=== PATIENT | female | born 1950 | race Caucasian/White ===

== ENCOUNTER → 2017-11-14 09:54 | Outpatient (CLI) | payer MEDICARE, BC, SELFPAY ==
--- NOTE | 2017-11-14 10:02 | RAD_ITS ---
STUDY: X-RAY - ABDOMEN/PELVIS REASON FOR EXAM: Female, 67 years old. Follow-up renal stones. TECHNIQUE: Single AP view of the abdomen / pelvis. COMPARISON: CT scan of 03/16/2014, previous radiographs 09/09/2015. 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 There is an unremarkable bowel gas pattern. There is no demonstrated free abdominal air. The visualized liver, spleen and kidneys are grossly normal in size and morphology. Normal soft tissue structures. Normal visualized osseous structures. RAD/Abdomen Single View IMPRESSION: Grossly stable appearance extremely numerous tiny stones throughout all segments of both kidneys. Electronically Signed: Chip Ulrich MD at 16:52 EDT , Service support ,
== END ==
PROVIDERS: Family Provider Internal Medicine; PCP Internal Medicine; Visit Provider Urology
DX: N20.0 Calculus of kidney (principal)
CPT/HCPCS: 74018

== ENCOUNTER → 2018-03-21 11:39 | Outpatient (CLI) | payer MEDICARE, BC, SELFPAY ==
--- NOTE | 2018-03-21 11:42 | BI_ITS ---
MAMMOGRAPHY - BILATERAL SCREENING REASON FOR EXAM: Female, 67 years old. Routine annual screening examination. PERTINENT HISTORY: Non-contributory. TECHNIQUE: Digital bilateral breast jairo (3D mammographic acquisition) in the CC and MLO projections. 2-D mediolateral oblique (MLO) and craniocaudad (CC) views of both breasts were obtained. CAD: Full Field Digital Mammography with Computer Added Detection was performed. COMPARISON: Comparison is made with prior study dated March 10, 2017 and January 08, 2016. FINDINGS: Breast Composition: There are scattered areas of fibroglandular density. There are no dominant masses or suspicious calcifications. No other significant abnormalities are identified. There has been no significant change since the prior study. BI/SCREENING MAMM (CAD), BILAT IMPRESSION: Stable bilateral screening mammogram. Yearly follow-up mammogram recommended. (A) ASSESSMENT CATEGORY: BIRADS Category 1: Negative. A letter regarding these results will be sent to the patient by the facility within 30 days. Approximately 10% of breast cancers are not detected by mammography. A normal mammogram should not delay biopsy of a clinically suspicious abnormality. [id number] Electronically Signed: Robert Dominguez MD at 13:21 EDT Tel [phone], Service support ,
== END ==
PROVIDERS: Family Provider Internal Medicine; PCP Internal Medicine; Visit Provider Obstetrics & Gynecology
DX: Z12.31 Encounter for screening mammogram for malignant neoplasm of breast (principal)
CPT/HCPCS: 77063; 77067

== ENCOUNTER → 2018-04-13 08:17 | Outpatient (CLI) | payer MEDICARE, BC, SELFPAY ==
--- NOTE | 2018-04-13 08:21 | BD_ITS ---
STUDY: DUAL ENERGY X-RAY ABSORPTIOMETRY / DXA REASON FOR EXAM: Female, 67 years old. The patient is postmenopausal. Loss of height. TECHNIQUE: Bone Mineral Density (BMD) measurements of lumbar spine and bilateral hips were obtained. COMPARISON: Comparison is made with prior study dated February 10, 2016. FINDINGS: Lumbar Spine (L1-L4): g/cm2 (0.873) / T-score (-2.6) / Z-score (-0.9) Findings are suggestive of osteoporosis with a high fracture risk. Left Femur Total: g/cm2 (0.982) / T-score (-0.2) / Z-score (1.1) Left Femoral Neck: g/cm2 (0.881) / T-score (-1.1) / Z-score (0.4) Right Femur Total: g/cm2 (0.941) / T-score (-0.5) / Z-score (0.8) Right Femoral Neck: g/cm2 (0.943) / T-score (-0.7) / Z-score (0.9) The T-Scores on the most recent prior examination were: Lumbar Spine (L1-L4): There has been improvement of bone density since the previous examination. Left Femur Total: which represents a worsening of 2.2%. Right Femur Total: which represents an improvement of 1.6%. BD/Dexa Bone Density Study IMPRESSION: The patient is considered osteoporotic as outlined below according to World [place] Organization (WHO) criteria with a high fracture risk. There has been improvement of bone density since the previous examination. Reference Information: The T-score is the number of standard deviations above or below the standard which is normal for young adults at their peak bone mineral density. The World Health Organization (WHO) interprets the T-scores as follows: Above -1 Normal bone density Between -1 and -2.5 Osteopenia Equal to / or below -2.5 Osteoporosis As a practical clinical guideline, osteopenia may be graded as follows: Mild -1 through -1.5 Moderate -1.6 through -2.0 Severe -2.1 through -2.4 The Z-score is the number of standard deviations above or below age-matched controls. A Z-score of less than -1.5 would be considered abnormal. References: 1. NIH Osteoporosis and Related Bone Diseases http://www.osteo.org 2. International Society for Clinical Densitometry http://www.iscd.org 3. National Osteoporosis Foundation http://www.nof.org Electronically Signed: Robert Dominguez MD at 8:41 EDT Tel [phone], Service support ,
== END ==
PROVIDERS: Family Provider Internal Medicine; PCP Internal Medicine; Visit Provider Obstetrics & Gynecology
DX: M81.0 Age-related osteoporosis without current pathological fracture (principal)
CPT/HCPCS: 77080

== ENCOUNTER → 2019-01-11 | Outpatient (CLI) | payer MEDICARE, BC, SELFPAY ==
--- NOTE | 2019-01-11 | FLU_PTH ---
PATIENT: ATIYA RAM LOC: [facility] U#:[id number] AGE/SX: 68/F ROOM: RE01/11/[address]: Dr. Franco Pena MD : 1950 BED: DIS: 01/11/2019 SPEC #: [id number] RECD: 01/11/19 14:45 STATUS: MELISSA REQ #: [id number] ALLAN: 01/11/19 00:[address]: Franco Pena DEPT: CYTOLOGY RECD BY: Kelly Tapia ENTERED: 01/12/19 11:25 SP TYPE: Fluid OTHR DR: Dr. Kaley Alexander MD Tissues: Urine Procedures: Special Stain Group II Surgery Specimen Level IV Cytospin Fluid HEADER OPERATION: Not noted PRE-OP DIAGNOSIS: Hematuria TISSUE SUBMITTED: Urine for cytology DIAGNOSIS CYTOLOGY Urine for cytology (cytospin): Negative for malignant cells. Acute inflammation. See comment. AM:gordo 01/15/19 COMMENT Stone debris is present in the specimen. Clinical correlation is suggested. CYTOLOGY STUDY Slides are reviewed. CYTOLOGY GROSS Received is 70 ml of yellow hazy fluid labeled with the patient's name and and designated per the requisition as urine. Submitted for cytology preparation. /CC:ericka 01/12/19 TC:2 [facility]: [id number]
[2019-01-11 17:47] LABS: Cytology, Body Fluid / CSF SEE PATHOLOGY REPORT
== END | disposition home or self-care (01) ==
LOC: LABSPEC 17:31
PROVIDERS: Family Provider Internal Medicine; PCP Internal Medicine; Referring Provider Urology; Visit Provider Urology
DX: R31.9 Hematuria, unspecified (principal)
CPT/HCPCS: 88108; 88305; 88313

== ENCOUNTER → 2023-10-06 | Outpatient (CLI) | payer MEDICARE, BC, SELFPAY ==
--- NOTE | 2023-10-06 09:29 | RAD_ITS ---
STUDY: X-RAY - ESOPHAGUS (BARIUM SWALLOW) WITH FLUOROSCOPY REASON FOR EXAM: Female, 72 years old. DYSPHAGIA TECHNIQUE: 18 view(s) of the esophagus were obtained following swallowing of barium. FLUOROSCOPY TIME (if supplied): (27 seconds) minutes/seconds. 4.52 mGy COMPARISON: None. FINDINGS: There is no demonstrated esophageal foreign body. There is no demonstrated stricture or mucosal abnormality. There is a small hiatal hernia. Weblike stenosis is seen at the gastroesophageal junction. The patient ingested a 12 mm tablet of barium without any difficulty. There is atherosclerotic tortuosity of the aortic arch and descending thoracic aorta. Normal visualized pulmonary parenchyma. Normal visualized osseous structures of the thorax. RAD/Esophagus Dual Contrast IMPRESSION: Small sliding hiatal hernia with weblike stenosis at the gastroesophageal junction. The patient ingested a 12 mm tablet of barium without any difficulty. Electronically Signed: Robert Dominguez MD at 15:13 EDT ,
== END | disposition home or self-care (01) ==
LOC: RAD 09:28
PROVIDERS: PCP Internal Medicine; Referring Provider Internal Medicine Gastroenterology; Visit Provider Internal Medicine Gastroenterology
DX: R13.10 Dysphagia, unspecified (principal)
CPT/HCPCS: 74221

== ENCOUNTER 2024-03-23 05:53 | Day surgery (SDC) | payer MEDICARE, BC, SELFPAY ==
--- NOTE | 2024-03-23 | IMM_PTH ---
PATIENT: ATIYA RAM LOC: [facility] U#:[id number] AGE/SX: 73/F ROOM: RE03/23/[address]: Dr. Cole Schwartz DO : 1950 BED: DIS: 03/23/2024 SPEC #: [id number] RECD: 03/26/24 10:43 STATUS: MELISSA REQ #: [id number] ALLAN: 03/23/24 00:[address]: Cole Schwartz DEPT: IMMUNOHISTOCHEMISTRY RECD BY: Chris Smith ENTERED: 03/26/24 10:44 SP TYPE: IMMUNO OTHR DR: Dr. Emma Bustamante MD Tissues: Esophagus, NOS Procedures: P53 (initial) KI-67 (add) PHYSICIAN & INSTITUTION [place] [phone] SPECIMEN INFORMATION: Tissue Source: Distal esophagus Clinical Info: Dysphagia Specimen Number: [id number] CPT code: 11053,43423 METHODOLOGY: Deparaffinized sections of prefer/formalin-fixed tissue or PAP/DQ stained slides are incubated with monoclonal/polyclonal antibodies/oligonucleotide probes. Localization is made via biotin free immunoperoxidase method. Appropriate controls are performed and reacted as expected. Results on target cell population are indicated in the following table: RESULTS: ANTIBODY / CLONE RESULT P53 (DO-7) positive, wild type Ki-67 (30-9) positive, low These tests were developed and their performance characteristics determined by [facility]. They may not have been cleared or approved by the U.S. Food and Drug Administration. The FDA has determined that such clearance or approval is not necessary. The above immunohistochemical/dualISH markers are ordered and reviewed by the Pathologist. INTERPRETATION: Distal esophagus, biopsy: No evidence of dysplasia. MARGARET/ 03/27/2024
[2024-03-23 06:22] VITALS: BP 115/73; PULSE 62; RESP 16; TEMP 36.8; O2SAT 99; BMI 24.5
[2024-03-23] MEDS: Lactated Ringers 1,000 ML 15 ML IV (06:25)
--- NOTE | 2024-03-23 06:59 | PCM.HP.BLA ---
History and Physical Date of Admission: 03/23/24 ATIYA RAM, is a 73 F who presents to the office today for establishment with [facility]. She has had dysphagia with food getting stuck in her esophagus for years now. It has been worsening lately with episodes happening 3-4 times per week. She will have to drink a lot of water to get the food down. She denies every having to regurgitate her food. She has noticed breads and meat can cause her trouble. She has reflux symptoms and a nightly cough. She has taken PPIs in the past but was told not to by her PCP due to her CKD. The PPI was helpful for her cough. She does alos have osteoporosis. She was seeing Dr. Self for this and he recommended EGD after the barium swallow. She ultimately decided to transition her care to [facility]. Barium Swallow; 10.06.23 There is no demonstrated esophageal foreign body. There is no demonstrated stricture or mucosal abnormality. There is a small hiatal hernia. Weblike stenosis is seen at the gastroesophageal junction. The patient ingested a 12 mm tablet of barium without any difficulty. There is atherosclerotic tortuosity of the aortic arch and descending thoracic aorta. Normal visualized pulmonary parenchyma. Normal visualized osseous structures of the thorax. ROS Const Constitutional: Positive for fatigue and headache(s); No fever(s) or weight change ENT ENT: Positive for headache(s) and difficulty swallowing Gastro GI: Positive for bloating, constipation, diarrhea, heartburn, difficulty swallowing, excessive flatus and vomiting; No abdominal pain, belching, change in bowel habits, change in stool character, coffee ground emesis, cramping, feeling full early, incontinent of stools, Vomiting blood/hematemesis, Blood in stool, loose stools, Black,tarry stools, nausea/dyspepsia, pain with swallowing or other Musc Musculoskeletal: Positive for joint pain, muscle cramps, muscle weakness, Arthritis, restless legs and leg pain at night Skin Skin: No yellowing of the eye or itchy eyes Neuro Neurology: Positive for headache(s) and restless legs Psych Psychiatric: No anxiety and Positive for depression Endo Endocrine: Positive for fatigue; No weight change Aller/Imm Allergy/Immunologic: No itchy eyes Ivan/Lymp Hematologic/Lymphatic: No easy bleeding or easy bruising Exam Const General: cooperative and comfortable Nutritional Appearance: average body habitus and well nourished [facility] Head: normal to inspection Ears: hearing grossly normal bilaterally Nose: external nose normal Face and sinus: normal facial exam Eyes General: appearance normal, both eyes and all related structures Neck Neck: normal visual inspection Chest Chest palpation & inspection: normal inspection of the chest Resp Effort & Inspection: normal respiratory effort Cardio Palpation: normal PMI GI Inspection: normal to inspection Palpation: no hepatosplenomegaly Skin General: no rashes or lesions noted Neuro General: patient alert Extrem General: normal to inspection Psych Affect: normal affect Assessment and Plan Assessment and Plan (1) Dysphagia: Status: Acute Plan: Patient is here today for establishment with [facility]. She has had dysphagia for years now but recently became worse. Differential diagnosis includes stricture, GERD or EOE. -Will schedule her for EGD; let her know that she made dilation during the scope. She is agreeable to this plan -Discussed PPI therapy. She is nervous being on PPI as she has CKD and osteoporosis. Last creatinine was .90 wnl. Recommended for now that she take famotidine at night for her cough. Pending her EGD results we can consider changing or adding new medications. -She will f/u in 3 months I have examined the patient and the H&P has been reviewed. There are no clinical changes since date of exam.
--- NOTE | 2024-03-23 07:00 | EGD_PTH ---
PATIENT: ATIYA RAM LOC: [facility] U#:[id number] AGE/SX: 73/F ROOM: RE03/23/[address]: Dr. Cole Schwartz DO : 1950 BED: DIS: 03/23/2024 SPEC #: [id number] RECD: 03/23/24 10:41 STATUS: MELISSA REQ #: [id number] ALLAN: 03/23/24 07:[address]: Cole Schwartz DEPT: SURGICAL PATHOLOGY RECD BY: Kelly Tapia ENTERED: 03/23/24 12:39 SP TYPE: EGD BIOPSY LENCHO DR: Dr. Emma Bustamante MD Tissues: Esophagus, NOS Procedures: Special Stain Group I Surgery Specimen Level IV Alcian Blue/PAS (control) HEADER OPERATION: Biopsy, dilatation PRE-OP DIAGNOSIS: Dysphagia TISSUE SUBMITTED: Distal esophagus biopsy MICROSCOPIC DIAGNOSIS Distal esophagus, biopsy: Gastroesophageal junctional biopsy with mild chronic inflammation. 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 Focal changes of reflux. No evidence of dysplasia. See comment. MARGARETAmrik 03/26/2024 COMMENT Alcian blue/PAS stain with matched control is used in the evaluation of the specimen. Immunohistochemistry ([id number]) for P53 and Ki-67 will be performed and results will be reported separately. MICROSCOPIC DESCRIPTION Slides are reviewed. GROSS DESCRIPTION Received in fixative is one container labeled with the patient's name and designated Distal esophagus biopsy. The specimen consists of multiple irregular fragments of connor soft tissue that in aggregate measure 2.0 x 0.5 x 0.1 cm. The specimen is totally submitted in one cassette. 03/23/2024 TC:3 CPT:67529,59345
[2024-03-23 07:28] VITALS: BP 115/73; PULSE 62; RESP 16; TEMP 36.8; O2SAT 99
--- NOTE | 2024-03-23 07:28 | PCM.PRE.AN2 ---
ASA Classification* ASA Classification ASA Classification: 2 Assessment & Plan Anesthesia* Anesthesia Assessment Anesthesia Assessment: Discussed sedation and/or anesthesia options, risks, benefits, and alternatives with patient/parents/legal guardian/POA. Questions invited. The patient/parents/legal guardian/POA seems to understand and agrees to proceed with anesthesia plan. Reviewed the physical assessment, medical history, allergy history and patient home medications list prior to surgery/procedure/anesthetic and documented any changes. Performed airway and anesthesia risk assessments. Anesthesia Type Anesthesia Type: MAC (see written pre anesthesia record for full assessment) Anesthesia Focused Assessment* Temperature: 98.2 F Pulse Rate: 62 Blood Pressure: 115/73 Respiratory Rate: 16 Pulse Ox: 99 Airway Assessment Mouth opens: >3 cm Mallampati Score: II Focused Labs Anesthesia Preop lab: CBC CHEMISTRY Potassium 3.7 mmol/L (3.5-5.1) 10/30/14 08:06 Sodium 142 mmol/L (136-145) 10/30/14 08:06 BUN 23 mg/dL (7-18) H 10/30/14 08:06 Creatinine 1.1 mg/dL (0.6-1.0) H 10/30/14 08:06 Glucose 79 mg/dL (70-110) 10/30/14 08:06 TSH 2.10 uIU/mL (0.358-3.74) 10/30/14 08:06 COAG Pre-Assessment Diagnosis/Proposed Procedure Planned Operative Procedure(s): EGD Anesthesia History 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 When Was Last Pacemaker Check QUESTION #4 FULL TEXT: You/Your Family Experience fever (hyperthermia) with Anesthesia Last Oral Intake Last Oral intake: Last Oral Intake NPO since 04:30 03/23/24 06:22 Meds taken in AM with sips of Yes 03/23/24 06:22 water? 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 Female Yes 03/21/24 12:11 HX of Motion Sickness Yes 03/21/24 12:11 HX of N/V After Surgery Yes 03/21/24 12:11 Non-Smoker Yes 03/21/24 12:11 Duration of Surgery greater No 03/21/24 12:11 than 60 minutes Number of Risk Factors 4 03/21/24 12:11 PONV Score Severe Risk 03/21/24 12:11 Height & Weight Height & Weight: Anesthesia: Height & Weight Height 5 ft 3 in 03/23/24 06:22 Weight: 63 kg 03/23/24 06:22 Body Mass Index (BMI) 24.5 03/23/24 06:22 Respiratory Assessment Respiratory Assessment - maintenance team leader: Respiratory Tract Infection Hx - maintenance team leader Hx Respiratory Tract Infection No 03/21/24 12:11 STOP Sleep Apnea STOP Sleep Apnea - maintenance team leader: STOP Sleep Apnea - maintenance team leader Hx Hypertension No 03/21/24 12:11 Hx Sleep Apnea No 03/21/24 12:11 CPAP BIPAP Do you snore loudly (louder No 03/21/24 12:11 than talking or can be heard Do you often feel tired/ No 03/21/24 12:11 fatigued/ sleepy during daytime? Has anyone observed you stop No 03/21/24 12:11 breathing during sleep? STOP Results Negative 03/21/24 12:11 QUESTION #5 FULL TEXT : Do you snore loudly (louder than talking or can be heard through closed doors)? 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 Specify any problems Hx of Preganancy in last 3 N/A 03/21/24 12:11 Months Nurse Filling Out Transfusion NBUCHER 03/21/24 12:11 & Questions: Date: 03/21/24 03/21/24 12:11 Time: 12:15 03/21/24 12:11 Patient unable to answer at this time (ie. confused, unrespo /Reproduction History /Reproductive History - maintenance team leader: /Reproductive Hx- maintenance team leader Hx Now No 03/21/24 12:11 Gestational Age (in weeks): EDC: Hx Hx Para Hx Section SAB No 03/21/24 12:11 Active Medications Active Medications: Current Medications Generic Name Dose Route Start Last Admin Trade Name Freq PRN Reason Stop Dose Admin Lactated Ringer's 1,000 mls @ 15 mls/hr 03/23/24 06:15 03/23/24 06:25 IV 15 mls/hr .Q48H MARY Administration PFSH Medical History PONV (postoperative nausea and vomiting) Wears glasses Depression Thyroid disease Arthritis Chronic kidney disease (CKD) History of renal disease Restless legs Migraine headache Syncope History of IBS Heartburn Gastric reflux Non-smoker Chronic cough History of stress test (~2012) History of irregular heartbeat Home Medications ?Medication ?Instructions ?Recorded ?Last Taken ?Type acebutolol 200 mg capsule 200 mg PO BID 02/27/24 03/23/24 History albuterol sulfate 90 mcg/actuation 2 puff inhalation Q6H PRN 02/27/24 Unknown History aerosol inhaler shortness of breath or wheezing azelastine 137 mcg (0.1 %) nasal 2 spray intranasal BID PRN allergy 02/27/24 Unknown History spray symptoms coenzyme Q10 10 mg capsule 10 mg PO BID 02/27/24 Unknown History levothyroxine 50 mcg capsule 50 mcg PO DAILY 02/27/24 03/23/24 History polyethylene glycol 3350 17 4 g PO DAILY 02/27/24 Unknown History gram/dose oral powder (Miralax) rosuvastatin 10 mg tablet 10 mg PO DAILY 02/27/24 Unknown History sumatriptan 20 mg/actuation nasal 20 mg intranasal Q2H PRN migraine 02/27/24 03/23/24 History spray headache vitamin B complex 1 cap PO DAILY 02/27/24 Unknown History antiarthritic combination no.2 900 900 mg PO DAILY 03/21/24 Unknown History mg tablet (glucosamine-chondroitin) magnesium glycinate 100 mg (as 100 mg PO DAILY 03/21/24 Unknown History glycinate) tablet hxueojesizqv-Ro-ufzq-minerals 18 1 tab PO DAILY 03/21/24 Unknown History mg-0.4 mg tablet niacin 500 mg tablet 500 mg PO DAILY 03/21/24 Unknown History omega 3 350 mg-dha 235 mg-epa 90 1 cap PO DAILY 03/21/24 Unknown History mg-fish oil 597 mg capsule,delay rel ([place]-3) sunflower lecithin 1,200 mg PO BID 03/21/24 Unknown History Allergy/AdvReac Type Severity Reaction Status Date / Time ibandronate sodium Allergy Severe N/V/D Verified 03/23/24 06:21 Onkwopo-CQT-ClY Reductase Allergy Mild myalgia Verified 03/23/24 06:21 Inhibitor alendronate sodium Allergy Unknown Other Verified 03/23/24 06:21 Environmental Allergies: Allergy Unknown Other Verified 03/23/24 06:21 Uncoded (seasonal) gatifloxacin AdvReac Unknown Rash Verified 03/23/24 06:21 Surgical History History of cystoscopy (~1979) History of ankle surgery History of sinus surgery (~1999) History of cataract extraction with lens replacement Social History Smoking Status: Never smoker Review of Systems (Anesthesia) ROS Narrative System reviewed and no additional complaints, except as documented.
[2024-03-23 07:30] VITALS: BP 115/73; BP 120/70; PULSE 82; RESP 16; TEMP 36.7; O2SAT 99
--- NOTE | 2024-03-23 07:33 | OP.CCLET_ITS ---
03/23/2024 Emma Bustamante [address] [place] [address] Re : Upper GI endoscopy procedure for Merlyn Evangelista Dear Dr. Bustamante This procedure was performed on Saturday, March 23, 2024. My impressions and recommendations are as follows: Impressions : - Non-severe reflux esophagitis with no bleeding. Biopsied. - Ectopic gastric mucosa in the upper third of the esophagus. - Medium-sized hiatal hernia. - Multiple gastric polyps. - No gross lesions in the first portion of the duodenum. Recommendations : - Discharge patient to home. - Full liquid diet today. - Use Prilosec (omeprazole) 20 mg PO BID for 12 weeks. - Continue present medications. My findings are described in the full procedure note, which is enclosed. If I can be of further assistance, please feel free to contact me at . Sincerely, Cole Friend, 03/23/2024 7:32:32 AM This report has been signed electronically.
--- NOTE | 2024-03-23 07:33 | OP.EGD_ITS ---
Patient Name: Merlyn Evangelista Procedure Date: 03/23/2024 7:03 AM Date of : 1950 Age: 73 Procedure: Upper GI endoscopy Indications: Dysphagia Providers: Cole Schwartz DO Referring MD: Emma Bustamante Medicines: Monitored Anesthesia Care Patient Profile: This is a 73 year old female. Refer to note in patient chart for documentation of history and physical. Patient has symptoms of dysphagia with solids. Complications: No immediate complications. Procedure: Pre-Anesthesia Assessment: - Prior to the procedure, a History and Physical was performed, and patient medications and allergies were reviewed. The patient is competent. The risks and benefits of the procedure and the sedation options and risks were discussed with the patient. All questions were answered and informed consent was obtained. Patient identification and proposed procedure were verified by the physician in the pre-procedure area. Mental Status Examination: alert and oriented. Airway Examination: normal oropharyngeal airway and neck mobility. Respiratory Examination: clear to auscultation. CV Examination: normal. Prophylactic Antibiotics: The patient does not require prophylactic antibiotics. Prior Anticoagulants: The patient has taken no anticoagulant or antiplatelet agents except for NSAID medication. ASA Grade Assessment: II - A patient with mild systemic disease. After reviewing the risks and benefits, the patient was deemed in satisfactory condition to undergo the procedure. The anesthesia plan was to use monitored anesthesia care (MAC). Immediately prior to administration of medications, the patient was re-assessed for adequacy to receive sedatives. The heart rate, respiratory rate, oxygen saturations, blood pressure, adequacy of pulmonary ventilation, and response to care were monitored throughout the procedure. The physical status of the patient was re-assessed after the procedure. After obtaining informed consent, the endoscope was passed under direct vision. Throughout the procedure, the patient's blood pressure, pulse, and oxygen saturations were monitored continuously. The gastroscope was introduced through the mouth, and advanced to the second part of duodenum. The upper GI endoscopy was accomplished without difficulty. The patient tolerated the procedure well. Scope In: 7:15:37 AM Scope Out: 7:23:24 AM Total Procedure Duration Time 0 hours 7 minutes 47 seconds Findings: Non-severe esophagitis with no bleeding was found 39 to 40 cm from the incisors. Biopsies were taken with a cold forceps for histology. Verification of patient identification for the specimen was done. Estimated blood loss was minimal. A guidewire was placed and the scope was withdrawn. Dilation was performed with a Savary dilator with no resistance at 54 Fr. The dilation site was examined and showed moderate mucosal disruption. Estimated blood loss was minimal. A single area of ectopic gastric mucosa was found in the upper third of the esophagus, 21 cm from the incisors. A medium-sized hiatal hernia was present. Multiple medium hyperplastic polyps with no stigmata of recent bleeding were found in the gastric body. No gross lesions were noted in the first portion of the duodenum. Impression: - Non-severe reflux esophagitis with no bleeding. Biopsied. - Ectopic gastric mucosa in the upper third of the esophagus. - Medium-sized hiatal hernia. - Multiple gastric polyps. - No gross lesions in the first portion of the duodenum. Recommendation: - Discharge patient to home. - Full liquid diet today. - Use Prilosec (omeprazole) 20 mg PO BID for 12 weeks. - Continue present medications. Procedure Code(s): --- Professional --- 70450, Esophagogastroduodenoscopy, flexible, transoral; with insertion of guide wire followed by passage of dilator(s) through esophagus over guide wire 98505, 59,51, Esophagogastroduodenoscopy, flexible, transoral; with biopsy, single or multiple CPT copyright 2021 [employer]. All rights reserved. The codes documented in this report are preliminary and upon casket liner review may be revised to meet current compliance requirements. Cole Schwartz DO 03/23/2024 7:32:32 AM This report has been signed electronically. Number of Addenda: 0 Note Initiated On: 03/23/2024 7:03 AM
--- NOTE | 2024-03-23 07:34 | PCM.POST.ANE ---
Anesthesia: Postop Eval I Current Vital Signs Temperature: 97.1 F Pulse Rate: 79 Blood Pressure: 120/70 Respiratory Rate: 16 Pulse Ox: 99 Oxygen Delivery Method: Room Air Assessment Airway patent: Yes Spontaneous unlabored respirations: Yes Mental status: Awake and Calm nausea: No Vomiting: No Anesthesia Complication: No Fluid Hydration Crystalloid volume administer (ml): 400 Total IV fluid infused: 400 Progress Note Anesthesia document: Postop Eval 1 completed: Yes
[2024-03-23 07:35] VITALS: BP 115/73; BP 117/71; BP 120/70; PULSE 75; PULSE 79; RESP 16; TEMP 36.2; O2SAT 99
[2024-03-23 07:40] VITALS: BP 114/69; BP 115/73; PULSE 71; RESP 16; TEMP 36.9; O2SAT 99
[2024-03-23] MEDS: Pantoprazole Sodium 40 MG in 0.9% Normal Saline (100mL MB+) 100 ML 330 MG IV (07:41)
[2024-03-23 08:13] VITALS: BP 115/73
== END 2024-03-23 08:34 | disposition home or self-care (01) ==
LOC: EN 05:54 → AC 05:56
PROVIDERS: PCP Internal Medicine; Referring Provider Internal Medicine; Visit Provider Internal Medicine Gastroenterology
PROC: 0DJ08ZZ Inspection of Upper Intestinal Tract, Via Natural or Artificial Opening Endoscopic (ICD-10-PCS; CPT 43235; principal; 2024-03-23 06:55)
DX: K21.00 Gastro-esophageal reflux disease with esophagitis, without bleeding (principal); K31.7 Polyp of stomach and duodenum; K44.9 Diaphragmatic hernia without obstruction or gangrene; M81.0 Age-related osteoporosis without current pathological fracture; N18.9 Chronic kidney disease, unspecified; Z79.899 Other long term (current) drug therapy
CPT/HCPCS: 43248; 43239; 88305; 88312; 88341; 88342; J7120; C1769; J2405

== ENCOUNTER 2024-05-12 10:14 | Emergency (ER) | payer MEDICARE, BC, SELFPAY ==
[2024-05-12 10:15] VITALS: BP 163/78; PULSE 67; RESP 18; TEMP 36.1; O2SAT 100; BMI 23.9
== END 2024-05-12 10:30 | disposition left against medical advice (07) ==
LOC: ED 10:40
PROVIDERS: PCP Internal Medicine
DX: Z53.21 Procedure and treatment not carried out due to patient leaving prior to being seen by health care provider (principal)

== ENCOUNTER → 2024-09-11 | Outpatient (CLI) | payer MEDICARE, BC, SELFPAY ==
[2024-09-13 08:09] LABS: Calprotectin, Stool 74 ug/g (0-120)
== END | disposition home or self-care (01) ==
LOC: LABSPEC 09:13
PROVIDERS: PCP Internal Medicine; Referring Provider Student in an Organized Health Care Education/Training Program; Visit Provider Student in an Organized Health Care Education/Training Program
DX: R19.5 Other fecal abnormalities (principal)
CPT/HCPCS: 83993; 87177; 87209; 87329; 87493

== ENCOUNTER → 2025-01-02 | Outpatient (CLI) | payer MEDICARE, BC, SELFPAY ==
--- NOTE | 2025-01-02 15:04 | NEURO ---
NCS and/or EMG Patient Report Ordering Doctor: Duc Yuan DATE OF SERVICE: 01/02/25 Merlyn presents with complaints of an intermittent buzzing in the right foot. Electrodiagnostic findings: Right peroneal motor nerve measured at the tib anterior shows normal distal latency with normal amplitude and conduction velocity. No decrease in conduction velocity across the fibular head. Right tibial motor responses are within normal limits. Sensory responses are normal. Needle EMG testing was performed the right lower limb. All muscles tested showed no evidence of denervation with normal motor unit action potentials. Electrodiagnostic impression: This is a normal electrodiagnostic study of the right lower limb. There is no electrodiagnostic evidence for peripheral neuropathy or lumbosacral radiculopathy. Multi Select Codes Neurology Neurology Interp Codes: 08846-92 Musc test done w/n test comp (interp) and 67873-90 Nrv cndj test 7-8 studies (interp)
== END | disposition home or self-care (01) ==
LOC: PSN 11:56
PROVIDERS: PCP Internal Medicine; Referring Provider Podiatrist Foot & Ankle Surgery; Visit Provider Podiatrist Foot & Ankle Surgery
DX: R20.0 Anesthesia of skin (principal); R20.2 Paresthesia of skin
CPT/HCPCS: 95886; 95911

== ENCOUNTER 2025-05-10 05:55 | Day surgery (SDC) | payer MEDICARE, BC, SELFPAY ==
--- NOTE | 2025-05-07 15:15 | PAT.ANE_ITS ---
Pre-Assessment Diagnosis/Proposed Procedure Planned Operative Procedure(s): egd Anesthesia History Anesthesia History - scientific illustrator: Anesthesia History - scientific illustrator Hx Hospitalization No 05/07/25 13:09 Any Problems With Anesthesia No 05/07/25 13:09 Cholinesterase deficiency No 05/07/25 13:09 You/Your Family Experience No 05/07/25 13:09 fever (hyperthermia) with Relationship Recent Exposure to Contagious No 03/23/24 06:22 Disease Does patient have nerve No 05/07/25 13:09 stimulator Patient instructed to have device shut off --Does patient have Pacemaker or ICD? When Was Last Pacemaker Check QUESTION #4 FULL TEXT: You/Your Family Experience fever (hyperthermia) with Anesthesia Last Oral Intake Last Oral intake: Last Oral Intake NPO since Meds taken in AM with sips of water? Meds patient instructed to take am of surgery PONV PONV - scientific illustrator: PONV - scientific illustrator Female Yes 05/07/25 13:09 HX of Motion Sickness Yes 05/07/25 13:09 HX of N/V After Surgery Yes 05/07/25 13:09 Non-Smoker No 05/07/25 13:09 Duration of Surgery greater No 05/07/25 13:09 than 60 minutes Number of Risk Factors 3 05/07/25 13:09 PONV Score Moderate Risk 05/07/25 13:09 Height & Weight Height & Weight: Anesthesia: Height & Weight Height 5 ft 3 in 05/12/24 10:15 Respiratory Assessment Respiratory Assessment - scientific illustrator: Respiratory Tract Infection Hx - scientific illustrator Hx Respiratory Tract Infection No 05/07/25 13:09 STOP Sleep Apnea STOP Sleep Apnea - scientific illustrator: STOP Sleep Apnea - scientific illustrator Hx Hypertension No 05/07/25 13:09 Hx Sleep Apnea Yes 05/07/25 13:09 CPAP Yes 05/07/25 13:09 BIPAP No 05/07/25 13:09 Do you snore loudly (louder than talking or can be heard Do you often feel tired/ fatigued/ sleepy during daytime? Has anyone observed you stop breathing during sleep? STOP Results Positive 05/07/25 13:09 QUESTION #5 FULL TEXT : Do you snore loudly (louder than talking or can be heard through closed doors)? 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 Specify any problems Hx of Preganancy in last 3 N/A 05/07/25 13:09 Months Nurse Filling Out Transfusion JUICE 05/07/25 13:09 & Questions: Date: 05/07/25 05/07/25 13:09 Time: 13:20 05/07/25 13:09 Patient unable to answer at this time (ie. confused, unrespo /Reproduction History /Reproductive History - scientific illustrator: /Reproductive Hx- scientific illustrator Hx Now Gestational Age (in weeks): EDC: Hx Hx Para Hx Section SAB No 03/21/24 12:11 PFSH Medical History (Updated 05/07/25 @ 13:19 by Rachele Leon) Postsurgical retinal scar of right eye History of renal disease High cholesterol Sleep apnea History of echocardiogram Cardiology follow-up encounter History of atrial fibrillation Chest pain Lyme disease SVT (supraventricular tachycardia) Paroxysmal atrial fibrillation Insomnia Kidney stones Hypothyroidism SAIMA on CPAP PONV (postoperative nausea and vomiting) Wears glasses Depression Arthritis Chronic kidney disease (CKD) Restless legs Migraine headache Syncope History of IBS Heartburn Gastric reflux Non-smoker Chronic cough History of stress test (~2012) Home Medications Medication Instructions Recorded Last Taken Type coenzyme Q10 10 mg capsule 10 mg PO BID 02/27/24 Unkno wn History polyethylene glycol 3350 17 4 g PO DAILY 02/27/24 Unkn own History gram/dose oral powder (Miralax) rosuvastatin 10 mg tablet 10 mg PO DAILY 02/27/24 Unkn own History sumatriptan 20 mg/actuation nasal 20 mg intranasal Q2H PRN migraine 02/27/24 03/23/24 History spray headache vitamin B complex 1 cap PO DAILY 02/27/24 Unkn own History antiarthritic combination no.2 900 900 mg PO DAILY Unknown History mg tablet (glucosamine-chondroitin) magnesium glycinate 100 mg (as 100 mg PO DAILY 4 Unknown History glycinate) tablet Held on 05/07/25. Instructions: Ordered xymewbvasbnj-Al-aboz-minerals 18 1 tab PO DAILY Unknown History mg-0.4 mg tablet niacin 500 mg tablet 500 mg PO DAILY 03/21/24 Unk nown History omega 3 350 mg-dha 235 mg-epa 90 1 cap PO DAILY 05/07/25 History mg-fish oil 597 mg capsule,delay rel (Timberlake-3) albuterol sulfate 90 mcg/actuation 2 puff inhalation Q 4H PRN 04/19/25 Unknown History aerosol inhaler shortness of breath or wheez ing apixaban 5 mg tablet (Eliquis) 5 mg PO BID 04/19/25 History azelastine 137 mcg (0.1 %) nasal 1 spray intranasal BI D PRN allergy 04/19/25 Unknown History spray symptoms levothyroxine 50 mcg tablet 50 mcg PO QAM 04/19/25 Unk nown History alpha lipoic acid 100 mg capsule 100 mg PO QDAY Unknown History lecithin 500 mg PO DAILY 04/25/25 Unk nown History metoprolol succinate 100 mg 100 mg PO QDAY #90 tabs Unknown Rx tablet,extended release 24 hr Allergy/AdvReac Type Severity Reaction Status Date / Time ibandronate sodium Allergy Severe N/V/D Verified 05/07/25 13:04 Ixrykdv-SMF-VjX Reductase Allergy Mild myalgia Verified 05/07/25 13:04 Inhibitor alendronate sodium Allergy Unknown Other Verified 05/07/25 13:04 Environmental Allergies: Allergy Unknown Other Verified 05/07/25 13:04 Uncoded (seasonal) gatifloxacin AdvReac Unknown Rash Verified 05/07/25 13:04 Family History Mother Heart disease CVA (cerebral vascular accident) Father Heart disease Myocardial infarction CVA (cerebral vascular accident) Surgical History (Updated 05/07/25 @ 13:19 by Rachele Leon) History of esophagogastroduodenoscopy History of cataract surgery History of colonoscopy History of cystoscopy (2024) History of ankle surgery History of sinus surgery (~1999) History of cataract extraction with lens replacement Social History Smoking Status: Never smoker alcohol intake: never substance use type: does not use caffeine: No Audit: Pertinent Findings Pertinent Findings Echo (EF%) pertinent findings: February 18, 2025. EF of 59%. No significant valvular abnormalities. No aortic stenosis is noted. Consult pertinent findings: 04/25/2025. Dr. Pacheco. 1. Paroxysmal N-[id number] score is 3. Echo shows preserved biventricular function. ZIO patch with no evidence of A-fib over 14 days. No documented A-fib on EKG. Currently only seen on her Apple watch. Currently on Eliquis. Switch acebutolol to metoprolol. 2. Mitral regurgitation–mild with structurally normal valve. Repeat echo in 3 to 5 years. Additional pertinent findings: 14-day monitor.. February 15, 2025. Predominant rhythm is sinus rhythm. 6 supraventricular tachycardic runs occurred. SVE's were less than 1%. VE's were also less than 1%. Recommendation Anesthesia Recommendation Anesthesia recommendation: OPTIMIZED for anesthesia
[2025-05-10] VITALS (8 sets, daily range): BP systolic 82–130; BP diastolic 46–73; PULSE 52–55; RESP 16–18; TEMP 36.3–36.9; O2SAT 94–100; BMI 24.3
--- OUTSIDE RECORDS SUMMARY | 2025-05-10 06:00 | XMS RPT_ITS | CCD ---
Author Organization [facility] Care Team Providers Care Ui Developer Designer Name Role Phone Crystal Hernandez Unavailable Clair Ilya Unavailable AFSHIN Nguyen Unavailable Unavailable Meghan Evans Unavailable Unavailable Zulma Mendez Unavailable Unavailable Unavailable Unavailable Emma Schultz MD Primary Care Provider [phone] Emma Schultz MD Primary Care Provider [phone] Emma Schultz MD Primary Care Provider Emma Schultz MD Primary Care Provider ANDRAE DEY Attending Unavailable GANTA, EMMA Referring Unavailable GANTA, EMMA Primary Care Unavailable OLDER, JESSICA Referring Unavailable GANTA, EMMA Primary Care Unavailable GANTA, EMMA Primary Care Unavailable GANTA, EMMA Primary Care Unavailable GANTA, EMMA Referring Unavailable GANTA, EMMA Primary Care Unavailable GANTA, EMMA Attending Unavailable GANTA, EMMA Primary Care Unavailable GANTA, EMMA Referring Unavailable GANTA, EMMA Primary Care Unavailable NEIL OROPEZA Attending Unavailab le OLDER, JESSICA Attending Unavailable GANTA, EMMA Primary Care Unavailable OLDER, JESSICA Referring Unavailable GANTA, EMMA Primary Care Unavailable POLINA ROBERTS Referring Unavailable OLDER, JESSICA Attending Unavailable GANTA, EMMA Primary Care Unavailable Emma Schultz MD Primary Care Provider Susu Rangel PA-C Unavailable Older 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, Jessica Unavailable Елена Pelletier PA-C Unavailable Dr. Emma Schultz MD Primary Care Provider Antoine CONCEPCION Dr. Emma Referring Provider Concha Branch Attending Provider Concha Branch Referring Provider GANTA, EMMA GLENIS Admitting Unavailable CUAUHTEMOC SHETH MD Consulting Unavailable GANTA, EMMA GLENIS Attending Unavailable GANTA, EMMA GLENIS Primary Care Unavailable PROVIDER, UNKNOWN Consulting Unavailable PROVIDER, UNKNOWN Consulting Unavailable Antoine CONCEPCION, Dr. Carter Primary Care Provider Concha Branch Attending Provider Lissy DPM, Dr. Xavier Attending Provider Lissy DPM, Dr. Xavier Referring Provider Lissy DPM, Dr. Xavier Other Provider Rigoberto CONCEPCION, Dr. Jackson Attending Provider GANTA, EMMA Referring Unavailable GANTA, EMMA Primary Care Unavailable GANTA, EMMA Primary Care Unavailable GANTA, EMMA Referring Unavailable YAMILKA WILDE Attending Unavailab le GANTA, EMMA Primary Care Unavailable GANTA, EMMA Referring Unavailable GANTA, EMMA Primary Care Unavailable OLDER, JESSICA Referring Unavailable GANTA, EMMA Referring Unavailable GANTA, EMMA Primary Care Unavailable GANTA, EMMA Primary Care Unavailable ALIZE MORGAN Referring Unavailable GANTA, EMMA Primary Care Unavailable OLDER, JESSICA Referring Unavailable GANTA, EMMA Attending Unavailable GANTA, EMMA Primary Care Unavailable GANTA, EMMA Referring Unavailable GANTA, EMMA Primary Care Unavailable GANTA, EMMA Primary Care Unavailable OLDER, JESSICA Attending Unavailable GANTA, EMMA Attending Unavailable GANTA, EMMA Primary Care Unavailable GANTA, EMMA Referring Unavailable GANTA, EMMA Primary Care Unavailable GANTA, EMMA Attending Unavailable GANTA, EMMA Primary Care Unavailable GANTA, EMMA Referring Unavailable GANTA, EMMA Primary Care Unavailable GANTA, EMMA Referring Unavailable GANTA, EMMA Primary Care Unavailable TESTRAALIZE GONCALVES Attending Unavailable GANTA, EMMA Referring Unavailable GANTA, EMMA Primary Care Unavailable GANTA, EMMA Attending Unavailable GANTA, EMMA Primary Care Unavailable GANTA, EMMA Attending Unavailable GANTA, EMMA Primary Care Unavailable GANTA, EMMA Referring Unavailable GANTA, EMMA Primary Care Unavailable GANTA, EMMA Attending Unavailable GANTA, EMMA Primary Care Unavailable TESTRAKE, ALIZE Referring Unavailable GANTA, EMMA Primary Care Unavailable GANTA, EMMA Referring Unavailable GANTA, EMMA Primary Care Unavailable GANTA, EMMA Referring Unavailable GANTA, EMMA Primary Care Unavailable GANTA, EMMA Attending Unavailable GANTA, EMMA Primary Care Unavailable GANTA, EMMA Referring Unavailable GANTA, EMMA Primary Care Unavailable ALIZE MORGAN Attending Unavailable GANTA, EMMA Referring Unavailable GANTA, EMMA Primary Care Unavailable ALIZE MORGAN Attending Unavailable GANTA, EMMA Primary Care Unavailable Ganta, Emma Primary Care Unavailable Atanastoma, Concha Attending Unavailable Atanasov, Concha Referring Unavailable Ganta, Emma Referring Unavailable Ganta, Emma Primary Care Unavailable Cole Schwartz Attending Unavailable Ganta, Emma Primary Care Unavailable Provider, Ed Physician Attending Unavailab le Ganta, Emma Referring Unavailable Tod Pacheco Attending Unavailable Ganta, Emma Primary Care Unavailable Testrake, Alize Consulting Unavailable Testrake, Alize Referring Unavailable Ganta, Emma Primary Care Unavailable Manuel Franklin Attending Unavailable Ganta, Emma Referring Unavailable Atanasov, Concha Attending Unavailable Ganta, Emma Primary Care Unavailable Ganta, Emma Referring Unavailable Atanasov, Concha Attending Unavailable Ganta, Emma Primary Care Unavailable Testrake, Alize Attending Unavailable Testrake, Alize Referring Unavailable Ganta, Emma Primary Care Unavailable Allergies Allergy Classification Reported Allergen(s) Allergy Type Date of Onset Reaction(s) Facility Alendronate (1 source) Alendronate Drug Allergy 08-21-19 Other: See Comments [facility] Ibandronate (1 source) Ibandronate Drug Allergy 08-21-19 Other: See Comments [facility] Work Phone: (7 sources) gatifloxacin; Translations: [Tequin *FLUOROQUINOLONE S*] Drug Allergy 09-05-19 25 Rash [facility] Work Phone: (5 sources) Ibandronate; Translations: [Boniva *ENDOCRINE AND METABOLIC AGENTS - MISC.*] Drug Allergy [facility] Work Phone: Comment on above: seere stomach upset and exgttreme muscle aches. (5 sources) Sulfonamides (Antibiotic); Translations: [Sulfa Drugs] allergy to substance [facility] Work Phone: (1 source) allergy to substance [facility] Work Phone: (4 sources) Estrogen Compound allergy to substance [facility] Work Phone: (20 sources) Alendronate; Translations: [ALENDRONATE] Drug Allergy 08-21-19 Other: See Comments [facility] Work Phone: (9 sources) HMG-CoA reductase inhibitor; Translations: [[id number]-[id number] REDUCTASE INHIBITORS] Drug Intolerance 08-21-19 Myalgia [facility] Work Phone: (20 sources) Ibandronate; Translations: [IBANDRONATE] Drug Allergy 08-21-19 Other: See Comments [facility] Work Phone: (20 sources) HMG-CoA reductase inhibitor Drug Intolerance 08-21-19 Myalgia [facility] Work Phone: (2 sources) Yokdogg-Fha-Xbo Reductase Inhibitor Allergy to substance 09-05-19 myalgia [facility] (3 sources) Environmental Allergies: Uncoded; Translations: [Environmental Allergies: Uncoded] Allergy to substance 09-05-19 25 Other [facility] (1 source) Sulfonamides (Antibiotic) Drug allergy (disorder) [facility] (1 source) ; Translations: [] Propensity to adverse reactions (disorder) [facility] (1 source) Alendronate Drug Allergy 05-07-20 [facility] (1 source) gatifloxacin Drug Allergy 05-07-20 [facility] (1 source) Ibadronate Drug Allergy 05-07-20 [facility] (1 source) Morhzla-Ifz-Hsx Reductase Inhibitor Drug allergy (disorder) 05-07-20 [facility] Medications Current Medications Medication Drug Class(es) Dates Sig (Normalized) Sig (Original) acebutolol 200 mg oral capsule (20 sources) beta-Adrenergic Goran Start: 07-30-2024 take 1 capsule by mouth twice daily acebutolol (SECTRAL) 200 mg capsule Take 1 capsule by mouth two times a day. 180 capsule 3 07/30/2024 Active Start: 10-12-2021 End: 07-27-2024 take 1 capsule by mouth twice daily acebutolol (SECTRAL) 200 mg capsule Take 1 capsule by mouth two times a day. 180 capsule 3 07/30/2024 Active Start: 04-24-2021 End: 10-10-2021 take 1 capsule by mouth twice daily acebutolol (SECTRAL) 200 mg capsule Take 1 capsule by mouth twice daily. 180 capsule 1 04/24/2021 10/10/2021 Discontinued Start: 06-21-2016 take 1 capsule by mo [facility] twice daily Sectral 200 MG Oral Capsule 1 Capsule BID for 0 days Quantity: 180 {Capsule} Refills: 3 Ordered: 21-Jun-2016 Mary CONCEPCION, Crystal Hernandez MD, Crystal Vigil Start : 21-Jun-2016 Active Comment on above: Take 1 capsule by [facility] twice daily. TAKE 1 CAPSULE TWICE DAILY Take 1 capsule by [facility] two times a day. [id number] 200 actuat albuterol 0.09 mg/actuat metered dose inhaler (20 sources) beta2-Adrenergic Agonist Start: 02-27-2024 Albuterol Sulfate 90 mcg/actuation HFA aerosol inhaler Active 2 NMA INHALATION EVERY 6 HOURS as needed for shortness of breath or wheezing February 27, 2024 12:00am Start: 02-19-2021 End: 06-10-2023 take 2 puff(s) by inhalation every four hours as needed for wheezing albuterol HFA (VENTOLIN HFA) 90 mcg/actuation inhaler Inhale 2 Puffs as instructed every 4 hours as needed for wheezing/shortness of breath. 1 Each 1 06/10/2023 Active Start: 09-12-2008 End: 01-14-2009 PROVENTIL HFA, 108 (90 Base) MCG/ACT (Inhalation Aerosol Solution) uad Aerosol Soln 1-2 puffs bid/PRN for 0 days Quantity: 1 {Aerosol_Soln} Refills: 0 Ordered: 12-Sep-2008 AFSHIN Nguyen Start : 12-Sep-2008 End : 14-Jan-2009 Inactive Comment on above: Inhale 2 Puffs as in structed every 4 hours as needed for wheezing/shortness of breath. amoxicillin 875 mg oral tablet (4 sources) Penicillin-class Antibacterial Start: End: take 1 tablet by mouth twice daily amoxicillin (AMOXIL) 875 mg tablet Take 1 tablet by mouth twice daily for 10 days. 20 tablet 0 04/07/2022 04/17/2022 Active Comment on above: Take 1 tablet by kathy twice daily for 10 days. Antiarthritic Combination No.2 (Glucosamine-Chondro itin) 900 mg tablet (2 sources) Start: 024 take 1 tablet by mouth once daily Antiarthritic Combination No.2 (Glucosamine-Chondro itin) 900 mg tablet Active 900 mg PO DAILY March 21, 2024 12:00am apixaban 5 mg oral tablet (6 sources) Factor Xa Inhibitor Start: take 1 tablet by mouth twice daily apixaban (ELIQUIS) 5 mg tab(s) Take 1 tablet by mouth two times a day. 60 tablet 2 02/15/2025 Active azelastine hydrochloride 0.137 mg/actuat metered dose nasal spray (20 sources) Histamine-1 Receptor Antagonist Start: End: take 1 spray(s) nasal route twice daily azelastine 0.1% nasal spray Use 1 [place] in each nostril two times a day. 30 mL 5 06/10/2023 Active Start: 04-20-2016 Astepro 0.15 % Nasal Solution 1 (one) Solution Solution 2 sprays each nostril daily for 0 days Quantity: 1 {Each} Refills: 2 Ordered: 20-Apr-2016 Mary CONCEPCION, Crystal Hernandez MD, Crystal Vigil Start : 20-Apr-2016 Active Comment on above: Use 1 [place] in each nostril twice daily. Use 1 [place] in each nostril two times a day. ubidecarenone 10 mg oral capsule (20 sources) Start: 02-27-2024 Coenzyme Q10 10 mg capsule Active 10 mg PO TWICE A DAY February 27, 2024 12:00am take 1 capsule by mouth once eloisa ly COQ10, 200MG (Oral Capsule) 1 qd (200 MG) Active Comment on above: Take by mouth twice daily. CPAP/BIPAP/OTHER (20 sources) Start: 03-18-2025 End: 08-02-2052 CPAP/BIPAP/OTHER Type .CPAPSettings into a note to see current settings/supplies/DME information. 1 each 03/18/2025 08/02/2052 Active Start: 02-15-2025 End: 07-02-2052 CPAP/BIPAP/OTHER Indications : New onset a-fib (HCC) , Obstructive sleep apnea (adult) (pediatric) Type .CPAPSettings into a note to see current settings/supplies/DME information. 1 each 02/15/2025 07/02/2052 Active Start: 12-19-2024 End: 05-05-2052 CPAP/BIPAP/OTHER Type .CPAPS ettings into a note to see current settings/supplies/DME information. 1 each 12/19/2024 05/05/2052 Active doxycycline hyclate 100 mg oral tablet (8 sources) Tetracycline-class Drug Start: 01-16-2025 End: 01-23-2025 take 1 tablet by mouth twice daily doxycycline (VIBRA-TABS) 100 mg tablet Indications: Lyme disease Take 1 tablet by mouth two times a day for 7 days. 14 tablet 01/16/2025 01/23/2025 Active Start: 12-24-2024 End: 01-07-2025 take 1 capsule by mouth twice daily doxycycline monohydrate (MONODOX) 100 mg capsule Indications: Tick bite of lower back, initial encounter Take 1 capsule by mouth two times a day for 14 days. 28 capsule 12/24/2024 01/07/2025 Active Start: 02-19-2022 End: 03-01-2022 take 1 tablet by mouth twice daily doxycycline (VIBRA-TABS) 100 mg tablet Take 1 tablet by mouth twice daily for 10 days. 20 tablet 0 02/19/2022 03/01/2022 Active Comment on above: Take 1 tablet by kathy th twice daily for 10 days. GAMMA-AMINOBUTYRIC ACID, BULK, MISC (20 sources) GAMMA-AMINOBUTYR IC ACID, BULK, MISC Active GAMMA-AMINOBUTYR IC ACID, BULK, MISC glucosam/chond-msm1/C/castro/b or ([id number] COMPLEX ORAL) (20 sources) glucosam/chond-m sm1/C/castro/bor ([id number] COMPLEX ORAL) Take by mouth once daily. Active glucosam/chond-m sm1/C/castro/bor (BDBNSWDNLHS-VXRCE-LQU COMPLEX ORAL) Take by mouth. Active glucosam/chond-m sm1/C/castro/bor ([id number]-[id number]-BSF COMPLEX ORAL) Take by mouth. 0 Active Comment on above: Take by mouth. levothyroxine sodium 0.05 mg oral tablet (20 sources) l-Thyroxine Start: End: take 1 tablet by mouth once daily before breakfast levothyroxine (SYNTHROID) 50 mcg tablet Take 1 tablet by mouth daily before breakfast. 90 tablet 3 08/27/2024 Active Start: 02-27-2024 Levothyroxine 50 mcg capsule Active 50 ug PO DAILY February 27, 2024 12:00am 50mcg mo-sa and on tuesday 100mcg Start: 02-01-2024 End: 07-27-2024 take 1 tablet by mouth once daily levothyroxine (LEVOX YL) 50 mcg tablet Take 1 tablet by mouth once daily. 90 tablet 3 02/01/2024 07/27/2024 Discontinued Start: 01-27-2022 End: 01-30-2024 LEVOXYL 50 mcg tablet TAKE 1 TABLET ONCE DAILY ROMAN EMPTY STOMACH FOR THYROID 90 tablet 3 01/11/2023 Active Start: 08-21-2021 End: 01-22-2022 take 1 tablet by mouth once daily for thyroid dysfunction levothyroxine (LEVOXYL) 50 mcg tablet Take 1 tablet by mouth once daily. Take on empty stomach. For Thyroid 90 tablet 3 08/21/2021 01/22/2022 Discontinued Start: 01-03-2013 take 0.5 tablet by m outh once daily Levothyroxine Sodium 100 MCG Oral Tablet 1/2 (one half) Tablet qd for 0 days Quantity: 45 {Tablet} Refills: 3 Ordered: 21-Jun-2016 Mary CONCEPCION, Crystal Hernandez MD, Crystal Vigil Start : 21-Jun-2016 Active Start: 10-09-2008 End: 10-09-2008 take 1 tablet by mouth once daily LEVOTHYROXINE SODIUM , 100MCG (Oral Tablet) 1 Tablet qd for 0 days Refills: 0 Ordered: 09-Oct-2008 AFSHIN Nguyen Start : 09-Oct-2008 End : 09-Oct-2008 Inactive End: 09-12-2008 take 1 tablet by mouth once daily SYNTHROID, 50MCG (Or al Tablet) 1 Tablet qd for 0 days Quantity: 90 {Tablet} Refills: 3 Ordered: 06-May-2008 Lela Bedolla End : 12-Sep-2008 Discontinued Comment on above: Take 1 tablet by kathy th once daily. Take on empty stomach. For Thyroid Take 1 tablet by kathy th once daily. Except on Tuesday take 2 pills. Take on empty stomach. For Thyroid TAKE 1 TABLET ONCE D AILY ROMAN EMPTY STOMACH FOR THYROID magnesium glycinate 100 mg oral tablet (20 sources) Start: 03-21-2024 take 1 tablet by mouth once daily Magnesium Glycinate 100 mg tablet Active 100 mg PO DAILY March 21, 2024 12:00am magnesium glycin ate (MAG GLYCINATE ORAL) Take by mouth once daily. Active magnesium glycin ate (MAG GLYCINATE ORAL) Take by mouth. Active magnesium glycin ate (MAG GLYCINATE ORAL) Take by mouth. 0 Active Comment on above: Take by mouth. molnupiravir 200 mg capsule (1 source) Start: End: take 4 capsules by mouth twice daily molnupiravir 200 mg capsule Indications: COVID-19 virus infection Take 4 capsules by mouth two times a day for 5 days. 40 capsule 0 08/13/2023 08/18/2023 Active Comment on above: Take 4 capsules by m outh two times a day for 5 days. multivitamin tablet (20 sources) Start: take 1 tablet by mouth once daily multivitamin tablet Indications: Medicare annual wellness visit, subsequent Take 1 tablet by mouth once daily. 10/26/2024 Active Fdsusxvzmyuy-Lt-Kdob- Minerals 18-0.4 mg tablet (2 sources) Start: Xqgqtfomwgyu-Uc-Lfgz- Minerals 18-0.4 mg tablet Active 1 {tbl} PO DAILY March 21, 2024 12:00am niacin 500 mg oral tablet (20 sources) Nicotinic Acid Start: take 1 tablet by mouth once daily Niacin 500 mg tablet Active 500 mg PO DAILY March 21, 2024 12:00am Comment on above: Take 500 mg by mouth daily with breakfast. nitrofurantoin, macrocrystals 25 mg / nitrofurantoin, monohydrate 75 mg oral capsule (6 sources) Nitrofuran Antibacterial Start: End: take 1 capsule by mouth twice daily nitrofurantoin monohydrate and macrocrystal (MACROBID) 100 mg capsule Take 1 capsule by mouth twice daily for 5 days. 10 capsule 0 12/18/2021 12/23/2021 Active Start: 03-01-2014 End: 06-20-2014 take 1 capsule by mouth twice daily MACROBID, 100MG (Oral Capsule) 1 (one) Capsule Capsule bid for 0 days Quantity: 14 {Capsule} Refills: 0 Ordered: 20-Jun-2014 AFSHIN Nguyen Start : 01-Mar-2014 End : 20-Jun-2014 Inactive Comment on above: Take 1 capsule by mo [facility] twice daily for 5 days. [place] 2-Ouz-Aqr-Fish Oil ([place]-3) 350 mg-235 mg- 90 mg-597 mg capsule,delayed release(DR/EC) (2 sources) Start: 4 [place] 6-Wqc-Fhu-Fish Oil ([place]-3) 350 mg-235 mg- 90 mg-597 mg capsule,delayed release(DR/EC) Active 1 NMA PO DAILY March 21, 2024 12:00am pantoprazole 20 mg delayed release oral tablet (20 sources) Proton Pump Inhibitor Start: 4 take 1 tablet by mouth once daily before breakfast pantoprazole DR (PROTONIX) 20 mg tablet Take 1 tablet by mouth daily before breakfast. Take on empty stomach, 1/2 hr before meal. 30 tablet 1 07/25/2023 Active Start: 06-10-2023 take 1 tablet by kathy th once daily before breakfast pantoprazole DR (PROTONIX) 20 mg tablet Take 1 tablet by mouth daily before breakfast. Take on empty stomach, 1/2 hr before meal. 30 tablet 1 06/10/2023 Active Comment on above: Take 1 tablet by kathy th daily before breakfast. Take on empty stomach, 1/2 hr before meal. polyethylene glycol 3350 18653 mg powder for oral solution (17 sources) Osmotic Laxative Start: 02-27-2024 Polyethylene Glycol 3350 (Miralax) 17 gram/dose powder Active 4 g PO DAILY February 27, 2024 12:00am Start: 12-14-2012 End: 10-27-2015 GLYCOLAX (Oral Powder) 17 gr ams Powder QD for 0 days Quantity: 3 {Powder} Refills: 3 Ordered: 27-Oct-2015 AFSHIN Nguyen Start : 14-Dec-2012 End : 27-Oct-2015 Inactive Comments: Mail order. please dispense QS for 90 days Start: 10-27-2006 End: 12-19-2006 MIRALAX (Oral Powder) 17cc P owder qd for 0 days Quantity: 90 {Powder} Refills: 3 Ordered: 27-Oct-2006 AFSHIN Nguyen Start : 27-Oct-2006 End : 19-Dec-2006 Inactive Comment on above: Mail order. please d ispense QS for 90 days give QS for 90 day s upply Polyethylene Glycols (20 sources) polyethylene gly col 3350 (MIRALAX ORAL) Take by mouth once daily. Active polyethylene gly col 3350 (MIRALAX ORAL) Take by mouth. Active polyethylene gly col 3350 (MIRALAX ORAL) Take by mouth. 0 Active Comment on above: Take by mouth. predniSONE 10 mg oral tablet (2 sources) Start: 4 End: 4 predniSONE (DELTASONE) 10 mg tablet Take 4 tabs daily for 3 days, then 2 tabs daily for 3 days, then 1 tab daily for 3 days with food. 21 tablet 05/07/2024 05/16/2024 Active rosuvastatin calcium 10 mg oral tablet (20 sources) HMG-CoA Reductase Inhibitor Start: 4 take 1 tablet by mouth once daily rosuvastatin (CRESTOR) 10 mg tablet Indications: Hyperlipidemia, unspecified hyperlipidemia type Take 1 tablet by mouth once daily. 90 tablet 3 10/26/2024 Active Start: 02-01-2022 End: 01-03-2024 take 1 tablet by mouth once daily Rosuvastatin 10 mg tablet Active 10 mg PO DAILY February 27, 2024 12:00am Start: 08-21-2021 End: 01-30-2022 take 1 tablet by mouth once daily rosuvastatin (CRESTOR) 10 mg tablet Take 1 tablet by mouth once daily. 90 tablet 3 08/21/2021 01/30/2022 Discontinued Comment on above: Take 1 tablet by kathy once daily. soybean lecithin 1000 mg chewable tablet (20 sources) take 600 mg by mouth once daily lecithin 1,000 mg chew Take 600 mg by mouth once daily. Active Comment on above: Take 600 mg by mouth once daily. SUMAtriptan 20 mg/actuat nasal spray (20 sources) Serotonin-1b and Serotonin-1d Receptor Agonist Start: 10-26-2024 SUMAtriptan (IMITREX) 20 mg/actuation nasal spray Indications: Other migraine without status migrainosus, not intractable Use 1 spray in the nose as needed. 12 each 3 10/26/2024 Active Start: 02-27-2024 Sumatriptan 20 mg/actuation spray,non-aerosol Active 20 mg INTRANASAL Q2H as needed for migraine headache February 27, 2024 12:00am administer into one nostril as a single dose; if 2nd dose needed,administer into other nostril after at least 2 hrs, NTE 2 doses (40 mg) per episode Start: 12-09-2022 End: 08-11-2023 SUMAtriptan (IMITREX) 20 mg/ actuation nasal spray Use 1 [place] in the nose as needed. 12 Each 3 08/12/2023 Active Start: 09-07-2016 Imitrex 20 MG/ ACT Nasal Solution uad Solution prn for 0 days Quantity: 18 {Milliliter} Refills: 3 Ordered: 07-Sep-2016 Mary CONCEPCION, Crystal Hernandez MD, Crystal Vigil Start : 07-Sep-2016 Active Comments: max 40mg per 24 hours End: 12-09-2022 SUMAtriptan (IMITREX) 20 mg/ actuation nasal spray Use 20 Sprays in the nose as needed. 0 12/09/2022 Discontinued Comment on above: max 40mg per 24 hour s Use 20 Sprays in the nose as needed. Use 1 [place] in the n ose as needed. sunflower lecithin (2 sources) Start: 03-21-2024 take 1200 mg by mouth twice daily sunflower lecithin Active 1200 mg PO TWICE A DAY March 21, 2024 12:00am VIT D3-FOLIC AUIL-S8-D8-B12 ORAL (20 sources) VIT D3-FOLIC KRMR-L4-J1-B12 ORAL Take by mouth. Active VIT D3-FOLIC ACI D-B2-B6-B12 ORAL Take by mouth. 0 Active Comment on above: Take by mouth. Vitamin B Complex capsule (2 sources) Start: 02-27-2024 Vitamin B Comp ramila capsule Active 1 NMA PO DAILY February 27, 2024 12:00am Completed/Discontinued Medications Medication Drug Class(es) Dates Sig (Normalized) Sig (Original) acyclovir 50 mg/ml topical cream (5 sources) Herpesvirus Nucleoside Analog DNA Polymerase Inhibitor, Herpes Simplex Virus Nucleoside Analog DNA Polymerase Inhibitor, Herpes Zoster Virus Nucleoside Analog DNA Polymerase Inhibitor Start: 10-05-2012 End: 08-06-2013 ZOVIRAX, 5% (External Cream) 1 Cream bid when feel cold sore coming on for 0 days Quantity: 1 {Cream} Refills: 0 Ordered: 06-Aug-2013 AFSHIN Nguyen Start : 05-Oct-2012 End : 06-Aug-2013 Inactive alendronic acid 70 mg oral tablet (3 sources) Bisphosphonate Start: 01-28-2025 End: 02-15-2025 take 1 tablet by mouth every week alendronate (FOSAMAX) 70 mg tablet Indications: postmenopausal osteoporosis Take 1 tablet by mouth one time a week. 4 tablet 01/28/2025 02/15/2025 Discontinued amitriptyline hydrochloride 25 mg oral tablet (5 sources) Tricyclic Antidepressant Start: 04-18-2008 End: 07-09-2008 AMITRIPTYLINE HCL, 25MG (Oral Tablet) Tablet at night for 0 days Refills: 0 Ordered: 09-Jul-2008 Crystal Hernandez MD, MD, Dana M Start : 18-Apr-2008 End : 09-Jul-2008 Discontinued amoxicillin 875 mg / clavulanate 125 mg oral tablet (10 sources) Penicillin-class Antibacterial Start: 05-25-2016 End: 06-21-2016 take 1 tablet by mouth twice daily Augmentin 875-125 MG Oral Tablet 1 (one) Tablet bid for 0 days Quantity: 28 {Tablet} Refills: 0 Ordered: 21-Jun-2016 AFSHIN Nguyen Start : 25-May-2016 End : 21-Jun-2016 Inactive Start: 10-05-2012 End: 10-15-2012 take 1 tablet by mouth twice daily AUGMENTIN, 875-125MG (Oral Tablet) 1 Tablet Twice daily for 10 days Quantity: 20 {Tablet} Refills: 0 Ordered: 05-Oct-2012 Mary CONCEPCION, Crystal Hernandez MD, Crystal Vigil Start : 05-Oct-2012 End : 15-Oct-2012 Inactive aspirin 81 mg chewable tablet (20 sources) Platelet Aggregation Inhibitor, Nonsteroidal Anti-inflammatory Drug End: 12-09-2022 take 1 tablet by mouth once daily aspirin 81 mg chewable tablet Take 81 mg by mouth once daily. 0 12/09/2022 Discontinued take 1 tablet by mouth once sharita y ASPIRIN EC, 81MG (Oral Tablet Delayed Release) 1 qd (81 MG) Active Comment on above: Take 81 mg by mouth once daily. azithromycin 250 mg oral tablet (5 sources) Macrolide Antimicrobial Start: 10-10-19 09 End: 01-15-20 09 ZITHROMAX Z-DIOR, 250MG (Oral Tablet) 1 Tablet Tad for 0 days Quantity: 1 {Package(s)} Refills: 0 Ordered: 09-Oct-2008 AFSHIN Nguyen Start : 09-Oct-2008 End : 14-Jan-2009 Inactive Comments: will call if need void after 30 days Comment on above: will call if need vo id after 30 days benzonatate 100 mg oral capsule (20 sources) Non-narcotic Antitussive Start: 09-07-19 24 End: 11-28-19 25 take 2 capsules by mouth every eight hours as needed benzonatate (TESSALON PERLE) 100 mg capsule Take 2 capsules by mouth three times a day as needed. 60 capsule 09/07/2023 11/27/2024 Discontinued Comment on above: Take 2 capsules by m out three times a day as needed. budesonide 0.032 mg/actuat metered dose nasal spray (5 sources) Corticosteroid Start: 01-26-20 12 End: 05-22-20 12 RHINOCORT AQUA, 32MCG/ACT (Nasal Suspension) 1 (one) [place](s) Each Nare daily for 0 days Quantity: 3 {Suspension} Refills: 3 Ordered: 22-May-2012 Missy Patel LPN Start : 26-Jan-2012 End : 22-May-2012 Inactive Comments: not tolerate flonase Comment on above: not tolerate flonase calcium carbonate 600 mg oral capsule (8 sources) End: 12-09-19 22 take 600 mg by mouth twice daily calcium carbonate (CALCIUM 600 ORAL) Take 600 mg by mouth twice daily. 0 12/08/2021 Discontinued take 1 tablet by mouth twice eloisa ly CALCIUM CARBONATE, 600MG (Oral Tablet) 1 bid (600 MG) Active Comment on above: Take 600 mg by mouth twice daily. ciprofloxacin 500 mg oral tablet (5 sources) Quinolone Antimicrobial Start: 014 End: 015 take 1 tablet by mouth twice daily CIPROFLOXACIN HCL, 500MG (Oral Tablet) 1 (one) Tablet bid for 0 days Quantity: 20 {Tablet} Refills: 0 Ordered: 21-Oct-2014 AFSHIN Nguyen Start : 20-Jun-2014 End : 21-Oct-2014 Inactive clarithromycin 500 mg oral tablet (5 sources) Macrolide Antimicrobial Start: 007 End: take 2 tablets by mouth once daily BIAXIN XL PAC, 500MG (Oral Tablet Extended Release 24 Hour) 2 (two) Tablet ER 24HR Daily for 10 days Quantity: 20 {Tablet_ER_24HR} Refills: 0 Ordered: 10-Aug-2006 JACOBO SNEED CNP Start : 10-Aug-2006 End : 22-Aug-2006 Inactive codeine phosphate 2 mg/ml / guaiFENesin 20 mg/ml oral solution (5 sources) Opioid Agonist Start: 012 End: 012 GUAIATUSSIN AC, 100-10MG/5ML (Oral Syrup) 1 Syrup 1tsp qhs/PRN for 0 days Quantity: 6 {Ounce(s)} Refills: 0 Ordered: 22-May-2012 Missy Patel LPN Start : 10-Apr-2012 End : 22-May-2012 Inactive escitalopram 10 mg oral tablet (3 sources) Serotonin Reuptake Inhibitor Start: 025 End: 025 take 1 tablet by mouth once daily escitalopram oxalate (LEXAPRO) 10 mg tablet Indications: Anxiety and depression Take 1 tablet by mouth once daily. 30 tablet 2 10/26/2024 11/27/2024 Discontinued estrogens, conjugated (correction) 0.625 mg/ml vaginal cream (5 sources) Estrogen Start: 007 End: 008 PREMARIN, 0.625MG/GM (Vaginal Cream) 1 (one) Applicator(s) twice a week for 0 days Quantity: 3 {Cream} Refills: 3 Ordered: 01-Mar-2007 Lela Bedolla Start : 01-Mar-2007 End : 14-Feb-2008 Discontinued ezetimibe 10 mg oral tablet (5 sources) Dietary Cholesterol Absorption Inhibitor Start: 016 End: take 1 tablet by mouth once daily ZETIA, 10MG (Oral Tablet) 1 (one) Tablet Tablet daily for 0 days Quantity: 90 {Tablet} Refills: 3 Ordered: 27-Oct-2015 Mary CONCEPCION, Crystal Hernandez MD, Crystal Vigil Start : 27-Oct-2015 End : 27-Oct-2015 Discontinued Comments: Mail order. Comment on above: Mail order. GLUCOSAMINE CHONDROITIN COMPLX (Oral Capsule) (5 sources) take 1 capsule by mouth twice daily GLUCOSAMINE CHONDROITIN COMPLX (Oral Capsule) 1 bid Active ibandronic acid 150 mg oral tablet (5 sources) Bisphosphonate Start: End: take 1 tablet by mouth every month Boniva 150 MG Oral Tablet 1 (one) Tablet q monthly for 0 days Quantity: 4 {Tablet} Refills: 0 Ordered: 25-Mar-2016 Mary CONCEPCION, Crystal Hernandez MD, Crystal Vigil Start : 25-Mar-2016 End : 25-Mar-2016 Inactive Comments: severe stomach upset, nausea, body aches Comment on above: severe stomach upset , nausea, body aches inositol 500 mg oral capsule (5 sources) take 1 capsule by mouth once daily NIACIN FLUSH FREE, 500MG (Oral Capsule) 1 qd (500 MG) Active take 1 capsule by mouth once eloisa ly NIACIN FLUSH FREE, 500MG (Oral Capsule) 1 qd (500 MG) Active LORazepam 1 mg oral tablet (5 sources) Benzodiazepine Start: 05-12-2015 End: 10-27-2015 ATIVAN, 1MG (Oral Tablet) 1 (one) Tablet Tablet at night for sleep prn postovperative for 0 days Quantity: 10 {Tablet} Refills: 0 Ordered: 27-Oct-2015 AFSHIN Nguyen Start : 12-May-2015 End : 27-Oct-2015 Inactive Comments: ten Comment on above: ten metroNIDAZOLE 7.5 mg/ml topical cream (5 sources) Nitroimidazole Antimicrobial Start: 05-07-2013 End: 11-05-2013 METRONIDAZOLE, 0.75% (External Cream) 1 Cream Cream bid for 0 days Quantity: 1 {Cream} Refills: 0 Ordered: 05-Nov-2013 AFSHIN Nguyen Start : 07-May-2013 End : 05-Nov-2013 Inactive mometasone furoate 0.05 mg/actuat metered dose nasal spray (5 sources) Corticosteroid Start: 11-07-2009 End: 09-25-2010 NASONEX, 50MCG/ACT (Nasal Suspension) 1 Suspension 1 spray daily each nostril for 0 days Quantity: 1 {Suspension} Refills: 3 Ordered: 25-Sep-2010 Annie Contreras LPN Start : 07-Nov-2009 End : 25-Sep-2010 Inactive Comments: flonase have irritation Comment on above: flonase have irritat ion montelukast 10 mg oral tablet (20 sources) Leukotriene Receptor Antagonist Start: 02-19-2021 End: 12-09-2022 take 1 tablet by mouth once daily at bedtime montelukast (SINGULAIR) 10 mg tablet Take 1 tablet by mouth daily at bedtime. 90 tablet 3 02/19/2021 12/09/2022 Discontinued Comment on above: Take 1 tablet by kathy th daily at bedtime. omeprazole 20 mg delayed release oral capsule (20 sources) Proton Pump Inhibitor Start: 10-26-2024 End: 02-15-2025 take 1 capsule by mouth every twelve hours omeprazole (PRILOSEC) 20 mg capsule Indications: Gastroesophageal reflux disease without esophagitis Take 1 capsule by mouth every 12 hours. 45 capsule 10/26/2024 02/15/2025 Discontinued Start: 04-06-2024 take 1 capsule by mo uth every twelve hours omeprazole (PRILOSEC) 20 mg capsule Take 1 capsule by mouth every 12 hours. 04/06/2024 Active Start: 03-23-2024 End: 06-06-2024 take 1 capsule by mouth twice daily Omeprazole 20 mg capsule,delayed release(DR/EC) Active 20 mg PO TWICE A DAY 60 3 June 06, 2024 10:12am pravastatin sodium 40 mg oral tablet (5 sources) HMG-CoA Reductase Inhibitor Start: 07-19-2016 take 1 tablet by mouth once daily Pravachol 40 MG Oral Tablet 1 (one) Tablet qd for 0 days Quantity: 30 {Tablet} Refills: 5 Ordered: 19-Jul-2016 AFSHIN Nguyen Start : 19-Jul-2016 Active raloxifene hydrochloride 60 mg oral tablet (5 sources) Estrogen Agonist/Antagonis t Start: 03-01-2007 End: 02-14-2008 take 1 tablet by mouth once daily EVISTA, 60MG (Oral Tablet) 1 Tablet QD for 0 days Quantity: 90 {Tablet} Refills: 3 Ordered: 01-Mar-2007 Crystal Hernandez MD, MD, Dana M Start : 01-Mar-2007 End : 14-Feb-2008 Discontinued rizatriptan 10 mg oral tablet (5 sources) Serotonin-1b and Serotonin-1d Receptor Agonist Start: 02-21-2012 End: 08-06-2013 MAXALT, 10MG (Oral Tablet) 1 Tablet uad for 90 days Quantity: 27 {Tablet} Refills: 3 Ordered: 06-Aug-2013 AFSHIN Nguyen Start : 21-Feb-2012 End : 06-Aug-2013 Inactive simvastatin 10 mg oral tablet (10 sources) HMG-CoA Reductase Inhibitor Start: 11-05-2013 End: 11-05-2013 take 1 tablet by mouth once daily ZOCOR, 10MG (Oral Tablet) 1 Tablet QD for 0 days Quantity: 90 {Tablet} Refills: 3 Ordered: 05-Nov-2013 Crystal Hernandez MD, MD, Dana M Start : 05-Nov-2013 End : 05-Nov-2013 Discontinued Comment on above: Mail order. tegaserod 6 mg oral tablet (5 sources) Serotonin-4 Receptor Antagonist Start: 03-21-2006 End: 12-19-2006 take 1 tablet by mouth twice daily ZELNORM, 6MG (Oral Tablet) 1 BID for 0 days Refills: 0 Ordered: 21-Mar-2006 AFSHIN Nguyen Start : 21-Mar-2006 End : 19-Dec-2006 Inactive thyroid (correction) 30 mg oral tablet (5 sources) Start: 04-18-2008 End: 05-06-2008 take 1 tablet by mouth once daily ARMOUR THYROID, 30MG (Oral Tablet) 1 (one) Tablet QD for 0 days Quantity: 90 {Tablet} Refills: 3 Ordered: 18-Apr-2008 AFSHIN Nguyen Start : 18-Apr-2008 End : 06-May-2008 Inactive 24 hr traMADol hydrochloride 300 mg extended release oral tablet (5 sources) Opioid Agonist Start: 08-22-2006 End: 12-19-2006 take 1 tablet by mouth once daily ULTRAM ER, 300MG (Oral Tablet Extended Release 24 Hour) 1 (one) Tablet ER 24HR Daily for 0 days Quantity: 21 {Tablet_ER_24HR} Refills: 0 Ordered: 22-Aug-2006 AFSHIN Nguyen Start : 22-Aug-2006 End : 19-Dec-2006 Inactive Problems Active Problems Problem Classification Problem Date Documented Da te Episodic/Chronic Abdominal pain (20 sources) Abdominal pain; Translations: [Flank pain] Resolved: 4 08-06-2013 Episodic Comment on above: think divert. will t reat presumably and if not better next week then us pelvis pt shant call next week with how doingl due for scope next year. R/o rib fracture Anxiety disorders (5 sources) Acute stress disorder; Translations: [Acute stress reaction] Onset: 5 03-20-2025 Chronic Calculus of urinary tract (6 sources) Ureteric stone; Translations: [Calculus of ureter] Onset: 5 03-20-2025 Episodic Cardiac dysrhythmias (17 sources) Cardiac arrhythmia, unspecified; Translations: [Cardiac arrhythmia] Onset: 4 11-15-2016 Chronic Comment on above: stable on bbkler but with mild depression readjust with skip few doses. tehn fine for ahile. at this point told not miss morethan a few doses and not want to try off and [place].. echo. 11-05had alot PVCS started wtih bbkler in 40's. during stress test 5-6 im row. in cardio inpast. not able to get records. Cardiac dysrhythmias (20 sources) Palpitations; Translations: [Palpitations] Onset: 5 Resolved: 4 08-06-2013 Episodic Cardiac dysrhythmias (20 sources) Cardiac dysrhythmias Chronic kidney disease (4 sources) Chronic kidney disease stage 3A ; Translations: [Stage 3a chronic kidney disease (HCC)] 01-12-2023 Chronic Chronic kidney disease (3 sources) Chronic kidney disease; Translations: [Stage 3a chronic kidney disease (HCC)] Onset: 3 Chronic obstructive pulmonary disease and bronchiectasis (20 sources) Chronic obstructive pulmonary disease and bronchiectasis Disorders of lipid metabolism (20 sources) Hypercholesterolemia; Translations: [Mixed hyperlipidemia] Onset: 3 07-19-2016 Chronic Comment on above: reveiwed with patien t recent tests statin se, . CVD 10 yr risk 4.3% 3.2%. talk about given fmx history want to address. like ldl under 130. LDL backup higher and apo B high soy fish tree nuts come off zetia not working try fish oil may help joints and LDL up some but MPO, small particles good Disorders of teeth and jaw (1 source) Infection of tooth; Translations: [Periapical abscess without sinus] Episodic Esophageal disorders (20 sources) Barretts esophagus with dysplasia; Translations: [Stewart's esophagus with dysplasia, unspecified] Onset: 4 04-26-2024 Chronic Essential hypertension (1 source) Essential hypertension; Translations: [Essential (primary) hypertension] 01-28-2025 Chronic Genitourinary symptoms and ill-defined conditions (20 sources) Blood in urine; Translations: [Abnormal urine] Onset: 5 Resolved: 7 08-17-2016 Episodic Comment on above: saw tung inpast. c ytoscopy negative. ? from small stone. Headache; including migraine (20 sources) Migraine; Translations: [Other migraine, not intractable, without status migrainosus] Onset: 5 11-15-2016 Chronic Comment on above: having 3-4 migraines a month. . humidifier in room helps. imitrex still work for her. maxalt made heart race. stable. some in am. allergies and barometric pressure change. asteopro help some decrease in trigger. Heart valve disorders (2 sources) Irregular heart beat 02-15-2025 Episodic Immunizations and screening for infectious disease (20 sources) Encounter for screening for respiratory tuberculosis; Translations: [Need for prophylactic vaccination and inoculation against influenza] Onset: 5 Resolved: 7 05-23-2015 Episodic Comment on above: Dr. obrien thought re lated to thyriod disease. sasw Dr. obrien and n o seroneg inflammatory arthritis found. Malaise and fatigue (20 sources) Fatigue; Translations: [Other fatigue] Resolved: 4 08-06-2013 Episodic Mood disorders (1 source) Mood disorders; Translations: [Anxiety and depression] Onset: 5 Nonspecific chest pain (20 sources) Chest pain, unspecified; Translations: [Chest pain] Onset: 3 Resolved: 4 05-20-2015 Episodic Comment on above: less than minute and sharp sound muscular. no other cardiac signs and symptoms will let me know if worsen. ekg one lead biphasic T will check stress with family hsiotory suspicsion not high but willcheck Nutritional deficiencies (2 sources) Vitamin D deficiency; Translations: [Vitamin D deficiency, unspecified] Onset: 5 Chronic Osteoarthritis (20 sources) Arthritis of hand; Translations: [Primary osteoarthritis, unspecified hand] Onset: 2 Chronic Osteoporosis (20 sources) Osteoporosis; Translations: [Age-related osteoporosis without current pathological fracture] Onset: 3 11-15-2016 Chronic Comment on above: talk about side effe cts to all meds. refuse any new meds fo rthis. talk about prolia forteo. will recheck in 2 years. fall risk handout. weight bearing exercises Other bone disease and musculoskeletal deformities (20 sources) Osteopenia; Translations: [Osteopenia] Resolved: 6 03-25-2016 Episodic Comment on above: Dr. tang. has imp roved Other connective tissue disease (20 sources) Primary fibromyalgia syndrome; Translations: [Fibromyalgia] 11-15-2016 Episodic Comment on above: stable, sleep fair. going to chiropactor and help rom of neck Other connective tissue disease (15 sources) Pain in limb; Translations: [Pain in limb] Resolved: 4 08-06-2013 Episodic Other connective tissue disease (1 source) Cramp; Translations: [Cramp and spasm] Episodic Other connective tissue disease (2 sources) Pain in fingers of bilateral hands; Translations: [Pain in left finger(s)] Episodic Other connective tissue disease (1 source) Muscle pain; Translations: [Myalgia, unspecified site] 10-24-2023 Episodic Other connective tissue disease (1 source) Tendinitis; Translations: [Enthesopathy, unspecified] 05-07-2024 Episodic Other connective tissue disease (3 sources) Pain in right foot; Translations: [Pain in right foot] 12-11-2024 Episodic Other diseases of kidney and ureters (1 source) Other disorders of kidney and ureter in diseases classified elsewhere; Translations: [Nephrocalcinosis] Onset: 5 Episodic Other ear and sense organ disorders (1 source) Unspecified hearing loss, bilateral; Translations: [Bilateral hearing loss, unspecified hearing loss type] Onset: 5 Chronic Other gastrointestinal disorders (20 sources) Irritable bowel syndrome; Translations: [Irritable bowel syndrome] 11-15-2016 Chronic Comment on above: stable on miralax. t aking Tong probiotics through Kombucha tea that ferments. some lactose intolerance. Other gastrointestinal disorders (5 sources) Dysphagia; Translations: [Dysphagia, unspecified] 06-10-2023 Episodic Other gastrointestinal disorders (3 sources) Loose stool; Translations: [Other fecal abnormalities] 09-04-2024 Episodic Other hereditary and degenerative nervous system conditions (20 sources) Restless legs syndrome; Translations: [Restless legs] Onset: 5 11-15-2016 Chronic Comment on above: having more. talk ab out meds not want right now. CBC good RDW is good. talk about exercise at night. Other hereditary and degenerative nervous system conditions (17 sources) Restless legs; Translations: [Restless legs syndrome] Onset: 5 Chronic Other infections; including parasitic (1 source) Lyme disease; Translations: [Lyme disease, unspecified] 01-16-2025 Episodic Other inflammatory condition of skin (20 sources) Rosacea; Translations: [Rosacea] 11-15-2016 Chronic Comment on above: stable Other injuries and conditions due to external causes (2 sources) H/O: injury; Translations: [Personal history of other (healed) physical injury and trauma] Episodic Other lower respiratory disease (20 sources) Wheezing; Translations: [Wheezing] Resolved: 4 08-06-2013 Episodic Other lower respiratory disease (20 sources) Cough; Translations: [Cough] Resolved: 4 08-06-2013 Episodic Other lower respiratory disease (3 sources) Chronic cough; Translations: [Chronic cough] Onset: 3 06-10-2023 Episodic Other lower respiratory disease (16 sources) Snoring; Translations: [Snoring] Onset: 5 01-16-2025 Episodic Other nervous system disorders (20 sources) Carpal tunnel syndrome; Translations: [Carpal tunnel syndrome, unspecified laterality] Resolved: 4 05-23-2015 Chronic Other nervous system disorders (2 sources) Paresthesia of hand ; Translations: [Anesthesia of skin] Episodic Other nervous system disorders (6 sources) Paresthesia of foot ; Translations: [Anesthesia of skin] 11-27-2024 Episodic Other nervous system disorders (3 sources) Anesthesia of skin; Translations: [Numbness and tingling of foot] Onset: 5 Episodic Other nervous system disorders (2 sources) Paresthesia of skin; Translations: [Numbness and tingling of foot] Onset: 5 Episodic Other non-traumatic joint disorders (20 sources) Shoulder pain; Translations: [Shoulder pain] Resolved: 4 08-06-2013 Episodic Comment on above: think in rotator cuf f, PT help but then come back. talk about this will do MRI. did injection Other non-traumatic joint disorders (10 sources) Joint pain; Translations: [Pain in unspecified joint] 11-15-2016 Episodic Other nutritional; endocrine; and metabolic disorders (1 source) Other disorders of calcium metabolism; Translations: [Nephrocalcinosis] Onset: 5 Chronic Other conditions (1 source) Primary sleep apnea of ; Translations: [Primary sleep apnea of , unspecified type] 12-19-2024 Episodic Other skin disorders (1 source) Eruption; Translations: [Rash and other nonspecific skin eruption] 12-24-2024 Episodic Other upper respiratory disease (20 sources) Allergic rhinitis due to other allergen Chronic Other upper respiratory disease (20 sources) Allergic rhinitis; Translations: [Allergic rhinitis due to other allergen] Resolved: 4 08-06-2013 Chronic Comment on above: stable. flonase bloo dy nose. so use prn. some sinus pressure stable Other upper respiratory disease (1 source) Nasal sinus problem; Translations: [Other specified disorders of nose and nasal sinuses] 06-10-2023 Episodic Other upper respiratory infections (20 sources) Acute sinusitis, unspecified; Translations: [Acute sinusitis] Resolved: 7 04-08-2015 Episodic Poisoning by other medications and drugs (5 sources) Adverse reaction to drug; Translations: [Medication side effect] 11-15-2016 Episodic Residual codes; unclassified (8 sources) Sleep apnea; Translations: [Sleep apnea, unspecified] 12-03-2024 Chronic Residual codes; unclassified (6 sources) Obstructive sleep apnea syndrome; Translations: [Obstructive sleep apnea (adult) (pediatric)] 12-19-2024 Chronic Residual codes; unclassified (2 sources) Obstructive sleep apnea (adult) (pediatric); Translations: [SAIMA (obstructive sleep apnea)] Onset: 5 Chronic Residual codes; unclassified (2 sources) Sleep apnea, unspecified; Translations: [Sleep apnea, unspecified type] Onset: 5 Chronic Residual codes; unclassified (20 sources) Family history of other cardiovascular diseases Episodic Residual codes; unclassified (20 sources) Sleep disorder; Translations: [Disordered sleep] 11-15-2016 Episodic Comment on above: will use ativan post operative Residual codes; unclassified (2 sources) Body mass index (BMI) 24.0-24.9, adult; Translations: [Body mass index (BMI) of 24.0 to 24.9 in adult] Resolved: 7 08-17-2016 Episodic Residual codes; unclassified (1 source) Genetic susceptibility to other disease; Translations: [HLA-B27 positive] 11-15-2016 Episodic Comment on above: sasw Dr. obrien and n eddie garcia inflammatory arthritis found. Residual codes; unclassified (5 sources) FH: Cardiovascular disease; Translations: [Family history of other cardiovascular diseases] 11-15-2016 Episodic Comment on above: ekg before surgery g ood. Retinal detachments; defects; vascular occlusion; and retinopathy (5 sources) Macular hole; Translations: [Macular hole, right] 11-15-2016 Chronic Comment on above: Dr. Jefry Packer nton 05-22-15 Retinal detachments; defects; vascular occlusion; and retinopathy (15 sources) Retinal tear ; Translations: [Retinal defect] Resolved: 4 08-06-2013 Episodic Comment on above: had laser surgery to repair. vsion better but still [place] area. does at times get quick white spot in middle of vision. not last. will see them in follow up Skin and subcutaneous tissue infections (1 source) Infection of skin; Translations: [Local infection of the skin and subcutaneous tissue, unspecified] Episodic Spondylosis; intervertebral disc disorders; other back problems (20 sources) Degeneration of intervertebral disc; Translations: [Degeneration of cervical intervertebral disc] Onset: 3 Resolved: 4 05-20-2015 Chronic Spondylosis; intervertebral disc disorders; other back problems (20 sources) Low back pain; Translations: [Sacrococcygeal disorders, not elsewhere classified] Onset: 3 Resolved: 7 11-15-2016 Episodic Comment on above: MARY saw and with p ositive HLA b27 wMRI OA not sacrilietis get in mid back and at times down in to lower back doing exercises for months not help. will xray dfirst check spep will send to Pt and if still not better than do MRI think fibro and musc lesee tung and not kidney. went over exercises do for posture Thyroid disorders (20 sources) Hypothyroidism; Translations: [Hypothyroidism, unspecified] Onset: 3 11-15-2016 Chronic Comment on above: recent check good. Unclassified (20 sources) Unclassified (20 sources) Syndrome, restless legs (333.94) Unclassified (20 sources) Current non-smoker ; Translations: [Current nonsmoker (Renamed from Current non-smoker)] 05-25-2016 Unclassified (20 sources) Degenerative Disc Disease (722.6) Unclassified (10 sources) SCREENING FOR TB (V74.1) Unclassified (20 sources) Non-smoker; Translations: [Non-smoker] 11-15-2016 Unclassified (20 sources) Well Woman Exam (V72.31) (Pap,Mammo,Routine Female) Unclassified (10 sources) Ankle/Foot Pain (719.47) Unclassified (20 sources) Side Pain (786.50) Unclassified (10 sources) CONSTIPATION NOS (564.00) Unclassified (5 sources) Elevated fasting blood sugar Unclassified (9 sources) Body mass index (BMI) 24.0-24.9, adult; Translations: [Body mass index 20-24 - normal] 11-15-2016 Unclassified (14 sources) Sclerosis of sacroiliac joint; Translations: [Finding of sacroiliac joint] 11-15-2016 Comment on above: MARY saw and with p ositive HLA b27 wMRI OA not sacrilietis Unclassified (5 sources) Positive ALON (antinuclear antibody) Unclassified (5 sources) HLA-B27 positive Unclassified (5 sources) Encounter for hepatitis C virus screening test for high risk patient Unclassified (10 sources) Need for prophylactic vaccination (Renamed from Need for immunization against influenza) Unclassified (9 sources) Body mass index (BMI) of 24.0 to 24.9 in adult; Translations: [Body mass index 20-24 - normal] Resolved: 7 08-17-2016 Unclassified (20 sources) Macular hole, right Unclassified (10 sources) Abnormal lung function test Unclassified (10 sources) Annual Medicare Physical (Renamed from Medicare annual wellness visit, subsequent) Unclassified (15 sources) Disordered sleep Unclassified (10 sources) Medication side effect Unclassified (15 sources) Mid back pain Unclassified (10 sources) Preoperative general physical examination Unclassified (1 source) Supraventricular tachycardia, unspecified; Translations: [Supraventricular tachycardia, unspecified] Onset: Past or Other Problems Problem Classification Problem Date Documented Da te Episodic/Chronic Administrative/social admission (7 sources) Pneumococcal vaccination given; Translations: [Medical examinations/reports status] Resolved: 08-17-2016 05-20-2015 Episodic Comment on above: thrray tang. scope inpast 08/07 remind due 2014 Chronic obstructive pulmonary disease and bronchiectasis (5 sources) Bronchitis; Translations: [Bronchitis] Resolved: 08-06-2013 04-08-2015 Episodic Comment on above: resolved Diabetes mellitus without complication (20 sources) Impaired fasting glucose; Translations: [Impaired fasting glycaemia] Onset: 10-15-2024 Resolved: 04-23-2015 04-23-2015 Episodic Comment on above: better now with yovani negron. [id number] normal E Codes: Natural/environment (4 sources) Tick bite; Translations: [Bitten or stung by nonvenomous insect and other nonvenomous arthropods, initial encounter] Onset: 12-24-2024 Episodic Influenza (8 sources) Influenza Nutritional deficiencies (5 sources) Iron deficiency; Translations: [Iron deficiency] Onset: 11-27-2024 Episodic Other connective tissue disease (20 sources) Other symptoms and signs involving the musculoskeletal system; Translations: [Other musculoskeletal symptoms referable to limbs] Onset: 11-15-2023 10-24-2023 Episodic Other connective tissue disease (1 source) Pain in right foot; Translations: [Right foot pain] Onset: 12-11-2024 Episodic Other gastrointestinal disorders (5 sources) Constipation; Translations: [Constipation] Resolved: 08-06-2013 06-05-2015 Episodic Other gastrointestinal disorders (1 source) Other fecal abnormalities; Translations: [Other fecal abnormalities] Onset: 09-21-2024 Episodic Other infections; including parasitic (1 source) Lyme disease, unspecified; Translations: [Lyme disease] Onset: 01-16-2025 Episodic Other lower respiratory disease (1 source) Snoring; Translations: [Snoring] Onset: 01-16-2025 Episodic Other non-traumatic joint disorders (5 sources) Arthralgia of the ankle and/or foot; Translations: [Pain in joint involving ankle and foot, unspecified laterality] Resolved: 08-06-2013 05-20-2015 Episodic Other non-traumatic joint disorders (20 sources) Pain in right shoulder; Translations: [Pain in joint, shoulder region] Onset: 11-15-2023 10-24-2023 Episodic Other nutritional; endocrine; and metabolic disorders (5 sources) Body mass index 25-29 - overweight; Translations: [BMI 25.0-25.9,adult] Resolved: 11-15-2016 11-15-2016 Chronic Other screening for suspected conditions (not mental disorders or infectious disease) (12 sources) Pulmonary function studies abnormal; Translations: [Patient encounter status] Onset: 04-26-2024 11-15-2016 Episodic Comment on above: will do commpete she does get some congestion and cough ? astham underlying. PFT now good. no sob still some cough. Other skin disorders (1 source) Rash and other nonspecific skin eruption; Translations: [Rash] Onset: 12-24-2024 Episodic Residual codes; unclassified (10 sources) Needs influenza immunization; Translations: [Need for prophylactic vaccination and inoculation against influenza] Resolved: 05-12-2015 04-08-2015 Episodic Comment on above: Lot:[id number]:6. 13Amt:prefilled syringeSite: L Dltd, IMGiven by: ALIZA Blake signed Residual codes; unclassified (1 source) Body Mass Index between 19-24, adult; Translations: [BMI between 19-24,adult] Resolved: 07-12-2016 07-12-2016 Episodic Residual codes; unclassified (1 source) Procedure and treatment not carried out due to patient leaving prior to being seen by health care provider; Translations: [Procedure and treatment not carried out due to patient leaving prior to being seen by health care provider] Onset: 06-05-2024 Episodic Screening and history of mental health and substance abuse codes (2 sources) Encounter for screening for depression; Translations: [Encounter for screening examination for other mental health and behavioral disorders] Onset: 10-26-2024 Episodic Superficial injury; contusion (1 source) Insect bite (nonvenomous) of lower back and pelvis, initial encounter; Translations: [Tick bite of lower back, initial encounter] Onset: 12-24-2024 Episodic Unclassified (20 sources) Patient encounter status; Translations: [Colon cancer screening] Resolved: 08-17-2016 10-20-2018 Comment on above: 01-06-16 [facility] . will give pneumovax then willneed prevnar in a year. last colonoscopy was 08-06-2003, (she gets very ill with the colon prep) wants to look into the cologuard study. mammogram , pap -2014 (Dr. Tang), last BD was , needs pneumonia vaccine updated pt is low risk and c leared ekg done. labs done 04-17 including tsh good.Uitrectony right eye Dr. 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 Unclassified (5 sources) Deliveries (Parity); Translations: [Deliveries (Parity)] 11-15-2016 Comment on above: Term, 2 Unclassified (5 sources) Pregnancies (); Translations: [Pregnancies ()] 11-15-2016 Comment on above: 2 Unclassified (20 sources) Unspecified Diagnosis Resolved: 03-01-2014 03-01-2014 Unclassified (5 sources) BMI 25.0-25.9,adult Unclassified (9 sources) BMI between 19-24,adult; Translations: [Finding of body mass index] Resolved: 07-12-2016 07-12-2016 Unclassified (4 sources) Tuberculosis screening status; Translations: [Encounter for screening for respiratory tuberculosis] Resolved: 12-25-2008 05-23-2015 Unclassified (1 source) Screening status; Translations: [Colon cancer screening] 10-20-2018 Viral infection (20 sources) Other human herpesvirus infection; Translations: [Disease caused by 2019-nCoV] Resolved: 08-06-2013 08-06-2013 Episodic Results Test Name Value Interpretation Reference Range Facility MR/PATAmrikCAROLINAvickey 05-07-2025 /[facility] Medical Records Department [address] [place] [address] PAT - Anesthesia 05/07/25 1515 MR#: [id number] Acct: [id number] Name: URSULA LANE Rep #: [id number] : 1950 74 From: Eliseo Sears MD PCP: Dr. Emma Schultz MD Status:PRE [facility] Y Race: C Location: EN Pre-Assessment Diagnosis/Proposed Procedure Planned Operative Procedure(s): egd Anesthesia History Anesthesia History - edge blacker: Anesthesia History - edge blacker Hx Hospitalization No 05/07/25 13:09 Any Problems With Anesthesia No 05/07/25 13:09 Cholinesterase deficiency No 05/07/25 13:09 You/Your Family Experience No 05/07/25 13:09 fever (hyperthermia) with Relationship Recent Exposure to Contagious No 03/23/24 06:22 Disease Does patient have nerve No 05/07/25 13:09 stimulator Patient instructed to have device shut off --Does patient have Pacemaker or ICD? When Was Last Pacemaker Check QUESTION #4 FULL TEXT: You/Your Family Experience fever (hyperthermia) with Anesthesia Last Oral Intake Last Oral intake: Last Oral Intake NPO since Meds taken in AM with sips of water? Meds patient instructed to take am of surgery PONV PONV - edge blacker: PONV - edge blacker Female Yes 05/07/25 13:09 HX of Motion Sickness Yes 05/07/25 13:09 HX of N/V After Surgery Yes 05/07/25 13:09 Non-Smoker No 05/07/25 13:09 Duration of Surgery greater No 05/07/25 13:09 than 60 minutes Number of Risk Factors 3 05/07/25 13:09 PONV Score Moderate Risk 05/07/25 13:09 Height Weight Height Weight: Anesthesia: Height Weight Height 5 ft 3 in 05/12/24 10:15 Respiratory Assessment Respiratory Assessment - edge blacker: Respiratory Tract Infection Hx - edge blacker Hx Respiratory Tract Infection No 05/07/25 13:09 STOP Sleep Apnea STOP Sleep Apnea - edge blacker: STOP Sleep Apnea - edge blacker Hx Hypertension No 05/07/25 13:09 Hx Sleep Apnea Yes 05/07/25 13:09 CPAP Yes 05/07/25 13:09 BIPAP No 05/07/25 13:09 Do you snore loudly (louder than talking or can be heard Do you often feel tired/ fatigued/ sleepy during daytime? Has anyone observed you stop breathing during sleep? STOP Results Positive 05/07/25 13:09 QUESTION #5 FULL TEXT : Do you snore loudly (louder than talking or can be heard through closed doors)? 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 Specify any problems Hx of Preganancy in last 3 N/A 05/07/25 13:09 Months Nurse Filling Out Transfusion JUICE 05/07/25 13:09 Questions: Date: 05/07/25 05/07/25 13:09 Time: 13:20 05/07/25 13:09 Patient unable to answer at this time (ie. confused, unrespo /Reproduction History /Reproductive History - edge blacker: /Reproductive Hx- edge blacker Hx Now Gestational Age (in weeks): EDC: Hx Hx Para Hx Section SAB No 03/21/24 12:11 [facility] Medical History (Updated 05/07/25 @ 13:19 by Rachele Leon) Postsurgical retinal scar of right eye History of renal disease High cholesterol Sleep apnea History of echocardiogram Cardiology follow-up encounter History of atrial fibrillation Chest pain Lyme disease SVT (supraventricular tachycardia) Paroxysmal atrial fibrillation Insomnia Kidney stones Hypothyroidism SAIMA on CPAP PONV (postoperative nausea and vomiting) Wears glasses Depression Arthritis Chronic kidney disease (CKD) Restless legs Migraine headache Syncope History of IBS Heartburn Gastric reflux Non-smoker Chronic cough History of stress test ( 2012) Home Medications ???Medication ???Instructions ???Recorded ???Last Taken ???Type coenzyme Q10 10 mg capsule 10 mg PO BID 02/27/24 Unknown Hist ory polyethylene glycol 3350 17 4 g PO DAILY 02/27/24 Unknown Hist ory gram/dose oral powder (Miralax) rosuvastatin 10 mg tablet 10 mg PO DAILY 02/27/24 Unknown Hi story sumatriptan 20 mg/ (more content not included)... [facility] 04-29-2025 [facility] Office Visit (URCANT ) URSULA LANE ([id number]) 1950 F T Date Time Provider Department 04/29/25 1:00 PM ALIZE MORGAN During your visit today, we recorded the following information about you: Jaelyn Thornton MA 04/29/2025 1:29 PM Signed Administration Vice President present: ABNER Henson Matthew J, MD 04/29/2025 1:29 PM Signed SUMMARY: #Gross hematuria. CTU-04/17/25 -- negative. #Bilateral nephrolithiasis. With superimposed nephrocalcinosis. Up to 7 mm in right kidney and up to 6 mm in the left kidney. #AML, right. 1 cm. Alize oMrgan MD 04/29/2025 1:29 PM Signed [facility] UROLOGY PROCEDURE NOTE NAME: Ursula Lane SUMMARY: #Gross hematuria. CTU-04/17/25 -- negative. #Bilateral nephrolithiasis. With superimposed nephrocalcinosis. Up to 7 mm in right kidney and up to 6 mm in the left kidney. #AML, right. 1 cm. Surgeon(s)/Procedurali st(s) and Ip/Mosaic Technician(s): Alize Morgan MD Administration Vice President present: ABNER Christy Procedure(s): Flexible cystoscopy Anesthesia: 2% lidocaine, intraurethral Estimated Blood Loss: 0 ml Specimens: None Implantable Devices: None Drains: None Complications: None immediate Accidental Punctures and Lacerations: None Pre-Op/Pre-Procedure Diagnosis: (R31.0) Gross hematuria (primary encounter diagnosis) Post-Op/Post-Procedure Diagnosis: Same as above Operative Indications: Ursula Lane is a 74 year old female who presents for the procedure. Informed consent was obtained. Findings: Unremarkable urethra. Unremarkable bladder. No tumors, foreign bodies, or diverticula. Procedure Narrative: The patient was positioned on the exam table in the supine position. The genitalia were prepped and draped in the usual sterile fashion. The urethra was anesthetized with 2% lidocaine jelly. A timeout was performed, wherein the patient, procedure, and laterality were confirmed. The flexible cystoscope was inserted into the urethra. The entire urethra and bladder were inspected. The findings were as noted above. The cystoscope was removed. The patient tolerated the procedure well and was discharged home in satisfactory condition. Home-going instructions were reviewed and provided to the patient. Follow Up: Negative cystoscopy. Follow up urine cytology results; sent today. Return in about 6 weeks (around 06/10/2025) for KUB, blood work, Litholink. Orders this visit: Orders Placed This Encounter Cysto KUB - 2 wk Order Comments: In 2 weeks Standing Status: Future Expiration Date: 05/30/2026 Urine cytology - hematuria Clinical History/Diagnosis: HEMATURIA Source of specimen(s):: Urine, Voided [1276] Litholink (urine only) Standing Status: Future Number of Occurrences: 1 Expected Date: 05/27/2025 Expiration Date: 08/26/2025 Basic Metabolic Panel Standing Status: Future Expected Date: 05/27/2025 Expiration Date: 08/26/2025 PTH Intact Standing Status: Future Expected Date: 05/27/2025 Expiration Date: 08/26/2025 Scheduling Instructions: In preparation for this test, do not take multivitamins or dietary supplements containing biotin (vitamin B7) for at least 12 hours. Biotin is commonly found in hair, skin, and nail supplements and multivitamins. Tell your doctor if you take supplements containing biotin as part of your medication history. Uric Acid Standing Status: Future Expected Date: 05/27/2025 Expiration Date: 08/26/2025 lidocaine urojet 2 % 6 mL topical gel (GLYDO) alpha lipoic acid 100 mg capsule Sig: Take 100 mg by mouth. calcium citrate/vitamin D3 (CITRACAL + D ORAL) Sig: Take by mouth. RABEprazole (ACIPHEX) 20 mg tablet Sig: Take 20 mg by mouth once daily. UNIVERSAL PROTOCOL / SAFETY CHECKLIST Sign In: A Moment of CARE was completed. Appropriate PPE (Personal Protective Equipment) worn by all providers involved with the procedure. Special equipment not required. Patient/Surrogate Stated/Verified: Patient name, Date of , Relevant allergies, and The intended procedure Time Out: Relevant labs, photos, and/or imaging studies have been reviewed. Intended patient and procedure match the source document(s) (e.g. consent, HANDP, associated studies [imaging, pathology]) match the intended patient and procedure. Consent obtained and matches the intended procedure. Yes. Correct side/site is not applicable. Medications required for this procedure are verified. Fire risk assessed and interventions discussed. Implants: are not applicable. Sign Out: Specimens are all correctly labeled and sent, if applicable. All instruments, equipment, possible retained foreign bodies are accounted for. Yes. The post-procedure plan of care has been communicated to the patient or surrogate. SIGNATURE: MD ERNESTO Stuart (more content not included)... Normal [facility] 04-29-2025 [facility] Telephone (URCANT) URSULA LANE ([id number]) 1950 F T Date Time Provider Department 04/29/25 ALIZE MORGAN During your visit today, we recorded the following information about you: HazletCristineZulma 04/29/2025 1:34 PM Signed An [employer] link order was faxed today Allergies As of Date: 04/29/2025 Noted Allergy Reaction BONIVA (IBANDRONATE) 08/21/2021 14 - Other: See Comments Comments: Was so down and out for 4 weeks she does not want the medication FOSAMAX (ALENDRONATE) 08/21/2021 14 - Other: See Comments Comments: She was down for a month after taking them . Just did not tolerate them at all [id number] REDUCTASE INHIBIT*08/21/2021 17 - Myalgia Comments: Restless legs. Date Reviewed: 04/29/2025 Reviewed by: Alize Morgan MD - Fully Assessed Reason for Visit: Orders [681] Prescriptions as of 04/29/2025 - alpha lipoic acid 100 mg capsule Take 100 mg by mouth. - calcium citrate/vitamin D3 (CITRACAL + D ORAL) Take by mouth. - RABEprazole (ACIPHEX) 20 mg tablet Take 20 mg by mouth once daily. - apixaban (ELIQUIS) 5 mg tab(s) Take 1 tablet by mouth two times a day. - iv contrast (will be provided with radiology test) CT Urogram WO/W Inject, intravenously, once for 1 dose.No IV access, insert saline lock prior to the beginning of sedation, infusion, injection of imaging exam. Discontinue saline lock post exam. If Pt. has a central line or IVAD, may access for administration according to line specific nursing protocol. Once exam is complete flush line and de-access according to line specific nursing protocol in the CT contrast administration guidelines link. - 0.9 % sodium chloride (NACL 0.9%) infusion Administer at rate defined per CT contrast administration specifications. To be provided with radiology test. - azelastine 0.1% nasal spray Use 1 spray in each nostril two times a day. - CPAP/BIPAP/OTHER Type .CPAPSettings into a note to see current settings/supplies/DME information. - CPAP/BIPAP/OTHER Type .CPAPSettings into a note to see current settings/supplies/DME information. - CPAP/BIPAP/OTHER Type .CPAPSettings into a note to see current settings/supplies/DME information. - CPAP/BIPAP/OTHER Type .CPAPSettings into a note to see current settings/supplies/DME information. - multivitamin tablet Take 1 tablet by mouth once daily. - rosuvastatin (CRESTOR) 10 mg tablet Take 1 tablet by mouth once daily. - SUMAtriptan (IMITREX) 20 mg/actuation nasal spray Use 1 spray in the nose as needed. - levothyroxine (SYNTHROID) 50 mcg tablet Take 1 tablet by mouth daily before breakfast. - acebutolol (SECTRAL) 200 mg capsule Take 1 capsule by mouth two times a day. - albuterol HFA (VENTOLIN HFA) 90 mcg/actuation inhaler Inhale 2 Puffs as instructed every 4 hours as needed for wheezing/shortness of breath. - niacin (NIACIN) 500 mg tablet Take 500 mg by mouth daily with breakfast. - lecithin 1,000 mg chew Take 600 mg by mouth once daily. - ubidecarenone Q-10 (COENZYME Q-10) 10 mg cap Take by mouth twice daily. - VIT D3-FOLIC FQPA-U0-B5-B12 ORAL Take by mouth. - GAMMA-AMINOBUTYRIC ACID, BULK, MISC - polyethylene glycol 3350 (MIRALAX ORAL) Take by mouth once daily. - glucosam/chond-msm1/C/ castro/bor (BZRRFWFIKBZ-COTBY-DOL COMPLEX ORAL) Take by mouth once daily. - magnesium glycinate (MAG GLYCINATE ORAL) Take by mouth once daily. Problem List As Of Date 04/29/2025 Noted Resolved Hand arthritis [M19.049] 06/10/2022 Degenerative disc disease, cervical [M50.30] 01/03/2023 Cervical spondylosis [M47.812] 01/03/2023 Acute pain of right shoulder [M25.511] 11/15/2023 RUE weakness [R29.898] 11/15/2023 Snoring [R06.83] 01/16/2025 Gastroesophageal reflux disease without esophag*01/16/2025 RLS (restless legs syndrome) [G25.81] 01/16/2025 Obstructive sleep apnea syndrome [G47.33] 03/27/2025 Encounter Status:Closed by ZULMA CHINO on 04/29/25 [facility] CYTOLOGY NON-GYNon AP DISCLAIMER [facility] Comment on above: Order Comment: Speci men Type: URINE SPECIMEN Ordering Facility: [facility] Address: [address] [place] [address] Result Comment: Courtney amaya Developed Test (LDT) Disclaimer: Performance characteristics of immunohistochemical, immunofluorescent, and chromogenic in-situ hybridization tests have been determined by the performing laboratory within the [facility] Department of Pathology and Laboratory Medicine ([facility], [facility], [facility], [facility], [facility], [facility], or [facility]) in a manner consistent with CLIA requirements. One or more of these tests may not have been cleared or approved by the FDA. The [facility] Department of Pathology and Laboratory Medicine is regulated under CLIA as qualified to perform high-complexity testing. These tests are used for clinical purposes. These should not be regarded as investigational or for research. Positive and negative controls stain appropriately. Performed By: #### C YTONON #### [facility] CLIA [id number] [address] [place] [address] [place] CASE REPORT Normal [facility] Comment on above: Order Comment: Speci men Type: URINE SPECIMEN Ordering Facility: [facility] Address: [address] [place] [address] Result Comment: [facility] Cytology Report Case: [id number] Authorizing Provider: Alize Morgan MD Collected: 04/29/2025 02:03 PM Ordering Location: Urology Received: 04/30/2025 08:00 AM Pathologist: Karthik Swift MD Specimen: Urine, Voided Performed By: #### C YTONON #### [facility] CLIA [id number] [address] [place] [address] CLINICAL HISTORY HEMATURIA Normal [facility] Comment on above: Order Comment: Speci men Type: URINE SPECIMEN Ordering Facility: [facility] Address: [address] [place] [address] Performed By: #### C YTONON #### [facility] CLIA [id number] [address] [place] [address] FINAL DIAGNOSIS Normal [facility] Comment on above: Order Comment: Speci men Type: URINE SPECIMEN Ordering Facility: [facility] Address: [address] [place] [address] Result Comment: A - Urine, Voided Negative for high-grade urothelial carcinoma. at 1126 EDT Performed By: #### C YTONON #### [facility] CLIA [id number] [address] [place] [address] FINAL PERFORMING LAB Normal [facility] Comment on above: Order Comment: Speci men Type: URINE SPECIMEN Ordering Facility: [facility] Address: [address] [place] [address] Result Comment: Tech nical component, telegraph dispatcher screening performed at: [facility], [address] [place] [address] CLIA: [id number] Diagnostic interpretation performed at: [facility], [address] [place] [address] CLIA# [id number] Employment Director: Fernanda Hughes MD Performed By: #### C YTONON #### [facility] CLIA [id number] [address] [place], [place] [id number] [facility] GROSS DESCRIPTION Normal [facility] Comment on above: Order Comment: Speci men Type: URINE SPECIMEN Ordering Facility: [facility] Address: [address] [place], [place] [id number] Result Comment: Jah sorenson, Voided 45 cc clear light yellow fluid with particles. ThinPrep prepared. Performed By: #### C JOSE #### [facility] CLIA [id number] [address] [place] [address] [place] Cardiology Visit Reporton Cardiology Visit Report [facility] [address] [place], [place] [address] OFFICE VISIT Date of Service: 04/25/25 MR#: [id number] Acct: [id number] Name: URSULA LANE Rep #: [id number] : 1950 Provider: Dr. Tod foster DO Age/Sex: 74/F [place] [facility] Status: Signed HPI HPI History of Present Illness Details: Ms. Lane is a 74-year-old female with significant past cardiac history of paroxysmal atrial fibrillation (currently on Acebutolol and Eliquis). Notably, her cardiac workup is notable for preserved biventricular function, mild left atrial dilation with no significant valvular disease (mild MR with structurally normal valves). Patient had a Zio patch for 14 days, showing average heart rate at 68 bpm with 4 total triggers for supraventricular ectopics, sinus tachycardia, and ventricular bigeminy. There were no reports of atrial fibrillation and underlying rhythm was sinus. Patient seen today for management of atrial fibrillation. Patient admits that she has been told she has had A-fib since her 30s. She was in a workout class and began to felt short of breath and felt her heart beat hard". Patient underwent a stress test at this time, but results are unable to be found. During this initial workup, she was told she had atrial fibrillation. She endorses 2 episodes of atrial fibrillation over the past year lasting each time under 5 hours. She began to feel palpitations before going to bed and her Apple Watch detects high heart rates. Patient admits that these symptoms are very infrequent and she tolerates them well. Intake Vital Signs 05/12/24 10:15 04/25/25 12:28 Height 5 ft 3 in 5 ft 3 in Weight: 138 lb BMI 24.4 BP 139/71 H Blood Pressure Location Lt brachial Position Sitting Respiration 14 Pulse 64 Pulse Source NIBP Intake Visit Reasons: AFIB, [facility] ([facility]) REF English And Reading Instructor Required: No Is patient in pain?: No Allergies ibandronate sodium Allergy (Severe, Verified 04/25/25 13:31) N/V/D Rnzdofc-RCF-CaJ Reductase Inhibitor Allergy (Mild, Verified 04/25/25 13:31) myalgia alendronate sodium Allergy (Unknown, Verified 04/25/25 13:31) Other Environmental Allergies: Uncoded (seasonal) Allergy (Unknown, Verified 04/25/25 13:31) Other gatifloxacin Adverse Reaction (Unknown, Verified 04/25/25 13:31) Rash Medications ???Medication ???Instructions ???Recorded ???Confirmed ???Type coenzyme Q10 10 mg capsule 10 mg PO BID 02/27/24 04/25/25 His tory polyethylene glycol 3350 17 4 g PO DAILY 02/27/24 04/25/25 His tory gram/dose oral powder (Miralax) rosuvastatin 10 mg tablet 10 mg PO DAILY 02/27/24 04/25/25 H istory sumatriptan 20 mg/actuation nasal 20 mg intranasal Q2H PRN migraine 02/27/24 04/25/25 History spray headache vitamin B complex 1 cap PO DAILY 02/27/24 04/25/25 H istory antiarthritic combination no.2 900 900 mg PO DAILY 03/21/24 5 History mg tablet (glucosamine-chondroit in) magnesium glycinate 100 mg (as 100 mg PO DAILY 03/21/24 04/25/25 History glycinate) tablet qvelxohdtper-Vr-ocbt-m inerals 18 1 tab PO DAILY 03/21/24 04/25/25 H istory mg-0.4 mg tablet niacin 500 mg tablet 500 mg PO DAILY 03/21/24 04/25/25 History omega 3 350 mg-dha 235 mg-epa 90 1 cap PO DAILY 03/21/24 04/25/25 H istory mg-fish oil 597 mg capsule,delay rel ([place]-3) albuterol sulfate 90 mcg/actuation 2 puff inhalation Q4H PRN 04/25/25 History aerosol inhaler shortness of breath or wheezing apixaban 5 mg tablet (Eliquis) 5 mg PO BID 04/19/25 04/25/25 Hist ory azelastine 137 mcg (0.1 %) nasal 1 spray intranasal BID allergy 04/25/25 History spray symptoms levothyroxine 50 mcg tablet 50 mcg PO QAM 04/19/25 04/25/25 Hi story alpha lipoic acid 100 mg capsule 100 mg PO QDAY 04/25/25 04/25/25 H istory lecithin PO DAILY 04/25/25 04/25/25 History metoprolol succinate 100 mg 100 mg PO QDAY #90 tabs 04/25/25 1 Rx tablet,extended release 24 hr rabeprazole 20 mg tablet,delayed 20 mg PO QDAY 04/25/25 04/25/25 Hi story release Ejection fraction %: 59 Have you fallen in the past year?: No PFSH Medical History (Updated 04/25/25 @ 15:[address] Tod Pacheco, DO) Lyme disease SVT (supraventricular tachycardia) Paroxysmal atrial fibrillation SAIMA on CPAP Syncope Chronic kidney disease (CKD) Hypothyroidism Insomnia Kidney stones PONV (postoperative nausea and vomiting) Wears glasses Depression Arthritis Restless legs Migraine headache History of IBS Heartburn Gastric reflux Non-smoker Chronic cough History of stress test ( 2012) Surgical History (Updated 04/19/25 @ 12:50 by Gaby Garcias) History of colonoscopy History of cystoscopy ( 1979) History of ankle surgery History (more content not included)... [facility] 04-23-2025 [facility] Telephone (AMBER [place]) [address] ([id number]) 1950 F CHT Date Time Provider Department 04/23/25 YAMILKA WILDE During your visit today, we recorded the following information about you: Elinor Enriquez OCCA 04/23/2025 11:12 AM Signed Patient called and is having trouble with her CPAP. She wanted to make a follow up appointment. Transferred to scheduling. Allergies As of Date: 04/23/2025 Noted Allergy Reaction BONIVA (IBANDRONATE) 08/21/2021 14 - Other: See Comments Comments: Was so down and out for 4 weeks she does not want the medication FOSAMAX (ALENDRONATE) 08/21/2021 14 - Other: See Comments Comments: She was down for a month after taking them . Just did not tolerate them at all [id number]-SRW-FCG REDUCTASE INHIBIT*08/21/2021 17 - Myalgia Comments: Restless legs. Date Reviewed: 04/17/2025 Reviewed by: Sindy Waddell RT(R) - Fully Assessed Prescriptions as of 04/23/2025 - iv contrast (will be provided with radiology test) CT Urogram WO/W Inject, intravenously, once for 1 dose.No IV access, insert saline lock prior to the beginning of sedation, infusion, injection of imaging exam. Discontinue saline lock post exam. If Pt. has a central line or IVAD, may access for administration according to line specific nursing protocol. Once exam is complete flush line and de-access according to line specific nursing protocol in the CT contrast administration guidelines link. - 0.9 % sodium chloride (NACL 0.9%) infusion Administer at rate defined per CT contrast administration specifications. To be provided with radiology test. - azelastine 0.1% nasal spray Use 1 spray in each nostril two times a day. - CPAP/BIPAP/OTHER Type .CPAPSettings into a note to see current settings/supplies/DME information. - CPAP/BIPAP/OTHER Type .CPAPSettings into a note to see current settings/supplies/DME information. - CPAP/BIPAP/OTHER Type .CPAPSettings into a note to see current settings/supplies/DME information. - apixaban (ELIQUIS) 5 mg tab(s) Take 1 tablet by mouth two times a day. - CPAP/BIPAP/OTHER Type .CPAPSettings into a note to see current settings/supplies/DME information. - multivitamin tablet Take 1 tablet by mouth once daily. - rosuvastatin (CRESTOR) 10 mg tablet Take 1 tablet by mouth once daily. - SUMAtriptan (IMITREX) 20 mg/actuation nasal spray Use 1 spray in the nose as needed. - levothyroxine (SYNTHROID) 50 mcg tablet Take 1 tablet by mouth daily before breakfast. - acebutolol (SECTRAL) 200 mg capsule Take 1 capsule by mouth two times a day. - albuterol HFA (VENTOLIN HFA) 90 mcg/actuation inhaler Inhale 2 Puffs as instructed every 4 hours as needed for wheezing/shortness of breath. - niacin (NIACIN) 500 mg tablet Take 500 mg by mouth daily with breakfast. - lecithin 1,000 mg chew Take 600 mg by mouth once daily. - ubidecarenone Q-10 (COENZYME Q-10) 10 mg cap Take by mouth twice daily. - VIT D3-FOLIC ALUO-A7-T6-B12 ORAL Take by mouth. - GAMMA-AMINOBUTYRIC ACID, BULK, MISC - polyethylene glycol 3350 (MIRALAX ORAL) Take by mouth once daily. - glucosam/chond-msm1/C/ castro/bor (RSUDFXMWCEY-OAWZX-IXE COMPLEX ORAL) Take by mouth once daily. - magnesium glycinate (MAG GLYCINATE ORAL) Take by mouth once daily. Problem List As Of Date 04/23/2025 Noted Resolved Hand arthritis [M19.049] 06/10/2022 Degenerative disc disease, cervical [M50.30] 01/03/2023 Cervical spondylosis [M47.812] 01/03/2023 Acute pain of right shoulder [M25.511] 11/15/2023 RUE weakness [R29.898] 11/15/2023 Snoring [R06.83] 01/16/2025 Gastroesophageal reflux disease without esophag*01/16/2025 RLS (restless legs syndrome) [G25.81] 01/16/2025 Obstructive sleep apnea syndrome [G47.33] 03/27/2025 Encounter Status:Closed by ELINOR ENRIQUEZ on 04/23/25 [facility] 04-18-2025 [facility] Telephone (INTWS) [address] ([id number]) 1950 F T Date Time Provider Department 04/18/25 EMMA SCHULTZ During your visit today, we recorded the following information about you: Yamilka Stringer RN 04/18/2025 11:34 AM Signed Patient calls and states that she has cardiology appointment with Dr. Tod Pacheco at [facility] Cardiology. Patient is asking for referral, office visit notes, and testing results to be faxed to [facility] Cardiology. Information faxed as requested. Yamilka Stringer RN Allergies As of Date: 04/18/2025 Noted Allergy Reaction BONIVA (IBANDRONATE) 08/21/2021 14 - Other: See Comments Comments: Was so down and out for 4 weeks she does not want the medication FOSAMAX (ALENDRONATE) 08/21/2021 14 - Other: See Comments Comments: She was down for a month after taking them . Just did not tolerate them at all [id number]-ESR REDUCTASE INHIBIT*08/21/2021 17 - Myalgia Comments: Restless legs. Date Reviewed: 04/17/2025 Reviewed by: Sindy Waddell, RT(R) - Fully Assessed Reason for Visit: Electronic Communication [890] Cmt: Cardiology Referral Faxed to [facility] Cardiology Prescriptions as of 04/18/2025 - iv contrast (will be provided with radiology test) CT Urogram WO/W Inject, intravenously, once for 1 dose.No IV access, insert saline lock prior to the beginning of sedation, infusion, injection of imaging exam. Discontinue saline lock post exam. If Pt. has a central line or IVAD, may access for administration according to line specific nursing protocol. Once exam is complete flush line and de-access according to line specific nursing protocol in the CT contrast administration guidelines link. - 0.9 % sodium chloride (NACL 0.9%) infusion Administer at rate defined per CT contrast administration specifications. To be provided with radiology test. - azelastine 0.1% nasal spray Use 1 spray in each nostril two times a day. - CPAP/BIPAP/OTHER Type .CPAPSettings into a note to see current settings/supplies/DME information. - CPAP/BIPAP/OTHER Type .CPAPSettings into a note to see current settings/supplies/DME information. - CPAP/BIPAP/OTHER Type .CPAPSettings into a note to see current settings/supplies/DME information. - apixaban (ELIQUIS) 5 mg tab(s) Take 1 tablet by mouth two times a day. - CPAP/BIPAP/OTHER Type .CPAPSettings into a note to see current settings/supplies/DME information. - multivitamin tablet Take 1 tablet by mouth once daily. - rosuvastatin (CRESTOR) 10 mg tablet Take 1 tablet by mouth once daily. - SUMAtriptan (IMITREX) 20 mg/actuation nasal spray Use 1 spray in the nose as needed. - levothyroxine (SYNTHROID) 50 mcg tablet Take 1 tablet by mouth daily before breakfast. - acebutolol (SECTRAL) 200 mg capsule Take 1 capsule by mouth two times a day. - albuterol HFA (VENTOLIN HFA) 90 mcg/actuation inhaler Inhale 2 Puffs as instructed every 4 hours as needed for wheezing/shortness of breath. - niacin (NIACIN) 500 mg tablet Take 500 mg by mouth daily with breakfast. - lecithin 1,000 mg chew Take 600 mg by mouth once daily. - ubidecarenone Q-10 (COENZYME Q-10) 10 mg cap Take by mouth twice daily. - VIT D3-FOLIC QWPL-X6-R5-B12 ORAL Take by mouth. - GAMMA-AMINOBUTYRIC ACID, BULK, MISC - polyethylene glycol 3350 (MIRALAX ORAL) Take by mouth once daily. - glucosam/chond-msm1/C/ casrto/bor (FKERXPUMAQD-NDEQM-WFF COMPLEX ORAL) Take by mouth once daily. - magnesium glycinate (MAG GLYCINATE ORAL) Take by mouth once daily. Problem List As Of Date 04/18/2025 Noted Resolved Hand arthritis [M19.049] 06/10/2022 Degenerative disc disease, cervical [M50.30] 01/03/2023 Cervical spondylosis [M47.812] 01/03/2023 Acute pain of right shoulder [M25.511] 11/15/2023 RUE weakness [R29.898] 11/15/2023 Snoring [R06.83] 01/16/2025 Gastroesophageal reflux disease without esophag*01/16/2025 RLS (restless legs syndrome) [G25.81] 01/16/2025 Obstructive sleep apnea syndrome [G47.33] 03/27/2025 Encounter Status:Closed by YAMILKA STRINGER on 04/18/25 Normal [facility] CT UROGRAM WO/W IVCONon 10-1 CT UROGRAM WO/W IVCON * * *Final Report* * * DATE OF EXAM: Apr 17 2025 12:06PM [facility] 0560 - CT UROGRAM WO/W IVCON / PROCEDURE REASON: Gross hematuria * * * * Physician Interpretation * * * * EXAMINATION: CT ABDOMEN AND PELVIS WITHOUT AND WITH IV CONTRAST, INCLUDING EXCRETORY PHASE IMAGING (CT UROGRAM) 3D RECONSTRUCTIONS CLINICAL HISTORY: Gross hematuria. TECHNIQUE: CT urogram protocol including unenhanced, renal parenchymal phase and excretory phase renal imaging was obtained following IV contrast. Normal saline was also administered IV. No oral contrast was given. 3D image post-processing was performed and archived at the request of the referring physician, on the CT scanner workstation without concurrent physician supervision. MQ: CTU_2 Contrast: IV: 125 ml of Omnipaque 350 IV Saline: 100 ml of 0.9% NACL Solution Oral Contrast: None CT Radiation dose: Integrated dose-length product (DLP) for this visit = 1414 mGy*cm. CT Dose Reduction Employed: Automated exposure control(AEC) and iterative recon COMPARISON: CT 03/27/2025 RESULT: Kidneys and urinary tract: Right: Innumerable nonobstructing renal stones measuring up to 0.7 cm. Some of the calcifications may be located in the medulla. Stable lower pole angiomyolipoma measuring 1 cm. The opacified calices, renal pelvis and ureter are normal without dilation, filling defect, or stricture. Left: Innumerable nonobstructing renal stones measuring up to 0.6 cm. Some of the calcifications may be located in the medulla. There are no renal masses. The opacified calices, renal pelvis and ureter are normal without dilation, filling defect, or stricture. Bladder: No filling defect, calculus, focal or diffuse wall thickening. Abdomen and Pelvis: Liver: No mass. Biliary: No bile duct dilation. Gallbladder is unremarkable. Spleen: No mass. No splenomegaly. Pancreas: No mass or duct dilation. Adrenals: No mass. GI tract: No dilation or wall thickening. Colonic diverticulosis without findings of acute diverticulitis. Lymph nodes: No abdominal or pelvic lymphadenopathy. Mesentery/Peritoneum: No ascites or mass. Retroperitoneum: No mass. Vasculature: The celiac axis and SMA are patent. The portal vein and branches, splenic vein, SMV, and hepatic veins are patent. Atherosclerotic calcifications of the abdominal aorta and its branches. Pelvis: No mass, ascites or fluid collection. Bones and Soft Tissues: Degenerative changes. Lower thorax: Unremarkable. Localizer images: No additional findings. IMPRESSION: 1. Innumerable bilateral nonobstructing nephrolithiasis. Possible superimposed medullary nephrocalcinosis. 2. No suspicious renal or urothelial lesions. 3. Unchanged small right renal angiomyolipoma. Custody Officer: CHRISTIANO Transcribe Date/Time: Apr 23 2025 2:14P Dictated by : MATHEUS DUQUE MD This examination was interpreted and the report reviewed and electronically signed by: MATHEUS DUQUE MD on Apr 23 2025 2:20PM EST [id number] Normal [facility] [address] ([id number]) 1950 F T Date Time Provider Department 04/11/25 EMMA SCHULTZ COUMWS During your visit today, we recorded the following information about you: Oscar Pringle, EUSEBIO 04/11/2025 2:12 PM Signed patient is calling in stating that [facility] in [place] states they have not received the information for patients cpap machine. Patient is asking office to send them the information. Patient only needs called if problem with doing this. Essence Cartwright MA 04/11/2025 3:12 PM Signed CPAP order in [facility] reprinted and faxed to [facility]. Essence Cartwright MA Allergies As of Date: 04/11/2025 Noted Allergy Reaction BONIVA (IBANDRONATE) 08/21/2021 14 - Other: See Comments Comments: Was so down and out for 4 weeks she does not want the medication FOSAMAX (ALENDRONATE) 08/21/2021 14 - Other: See Comments Comments: She was down for a month after taking them . Just did not tolerate them at all SVNALVO-YEA-CKW REDUCTASE INHIBIT*08/21/2021 17 - Myalgia Comments: Restless legs. Date Reviewed: 04/09/2025 Reviewed by: Alize Morgan MD - Fully Assessed Reason for Visit: Patient Update [1234] Cmt: CPAP Prescriptions as of 04/11/2025 - iv contrast (will be provided with radiology test) CT Urogram WO/W Inject, intravenously, once for 1 dose.No IV access, insert saline lock prior to the beginning of sedation, infusion, injection of imaging exam. Discontinue saline lock post exam. If Pt. has a central line or IVAD, may access for administration according to line specific nursing protocol. Once exam is complete flush line and de-access according to line specific nursing protocol in the CT contrast administration guidelines link. - 0.9 % sodium chloride (NACL 0.9%) infusion Administer at rate defined per CT contrast administration specifications. To be provided with radiology test. - azelastine 0.1% nasal spray Use 1 spray in each nostril two times a day. - CPAP/BIPAP/OTHER Type .CPAPSettings into a note to see current settings/supplies/DME information. - CPAP/BIPAP/OTHER Type .CPAPSettings into a note to see current settings/supplies/DME information. - CPAP/BIPAP/OTHER Type .CPAPSettings into a note to see current settings/supplies/DME information. - apixaban (ELIQUIS) 5 mg tab(s) Take 1 tablet by mouth two times a day. - CPAP/BIPAP/OTHER Type .CPAPSettings into a note to see current settings/supplies/DME information. - multivitamin tablet Take 1 tablet by mouth once daily. - rosuvastatin (CRESTOR) 10 mg tablet Take 1 tablet by mouth once daily. - SUMAtriptan (IMITREX) 20 mg/actuation nasal spray Use 1 spray in the nose as needed. - levothyroxine (SYNTHROID) 50 mcg tablet Take 1 tablet by mouth daily before breakfast. - acebutolol (SECTRAL) 200 mg capsule Take 1 capsule by mouth two times a day. - albuterol HFA (VENTOLIN HFA) 90 mcg/actuation inhaler Inhale 2 Puffs as instructed every 4 hours as needed for wheezing/shortness of breath. - niacin (NIACIN) 500 mg tablet Take 500 mg by mouth daily with breakfast. - lecithin 1,000 mg chew Take 600 mg by mouth once daily. - ubidecarenone Q-10 (COENZYME Q-10) 10 mg cap Take by mouth twice daily. - VIT D3-FOLIC MGEN-F7-H6-B12 ORAL Take by mouth. - GAMMA-AMINOBUTYRIC ACID, BULK, MISC - polyethylene glycol 3350 (MIRALAX ORAL) Take by mouth once daily. - glucosam/chond-msm1/C/ castro/bor (FHLXNBIRFSK-RLVTM-PZX COMPLEX ORAL) Take by mouth once daily. - magnesium glycinate (MAG GLYCINATE ORAL) Take by mouth once daily. Problem List As Of Date 04/11/2025 Noted Resolved Hand arthritis [M19.049] 06/10/2022 Degenerative disc disease, cervical [M50.30] 01/03/2023 Cervical spondylosis [M47.812] 01/03/2023 Acute pain of right shoulder [M25.511] 11/15/2023 RUE weakness [R29.898] 11/15/2023 Snoring [R06.83] 01/16/2025 Gastroesophageal reflux disease without esophag*01/16/2025 RLS (restless legs syndrome) [G25.81] 01/16/2025 Obstructive sleep apnea syndrome [G47.33] 03/27/2025 Encounter Status:Closed by ESSENCE CARTWRIGHT on 04/11/25 [facility] 04-09-2025 [facility] Office Visit (URCANT ) [address] ([id number]) 1950 F [facility] Date Time Provider Department 04/09/25 2:30 PM ALIZE MORGAN During your visit today, we recorded the following information about you: Alize Morgan MD 04/09/2025 2:[address] MORGAN'S KIDNEY STONE PREVENTION HANDOUT DIETARY GUIDELINES: Drink 80-96 ounces of water per day. Your urine should look like tap water in color (clear to pale yellow). Add ? cup of lemon or [place] juice (fresh squeezed or bottled) to your total water for the day. Too much or too little calcium in your diet can cause stones! We recommend 800-1200 mg of calcium per day (check your food labels). Most dietary calcium comes from dairy. One 8-oz glass of milk, two slices of cheese, or one cup of yogurt EACH contain about one third of your daily calcium requirements. If you do not like dairy, then you may need to start a calcium supplement (calcium citrate is recommended). Limit oxalate-rich foods (e.g. nuts, nut butter, tea, chocolate, dark leafy greens [such as spinach], root vegetables [such as potatoes], berries [such as cranberries], dark beer, soy, black pepper, etc.). Google ?oxalate diet? for a complete list. Avoid vitamin C supplements because it turns into oxalate in your body! Limit protein intake (e.g. meat, eggs, nuts, protein supplements). A balanced diet is BEST. Limit salt intake (<3 g/day) - avoid adding salt to food and avoid processed foods (e.g. fast food, canned food, frozen meals, lunch meats, etc.). Avoid dark-colored tatiana (The un-tatiana - Sprite, 7 Up, Starry, Mountain Dew - are okay, but diet is better.). Avoid high doses of vitamin D (unless you are being treated for low vitamin D by another doctor). Diet - Eat a healthy, balanced, low-fat, high-fiber diet (fruits and veggies!). Exercise and weight loss - Excess weight increases your risk of several types of stones. Alize Morgan MD 04/09/2025 2:37 PM Signed [facility] OUTPATIENT OFFICE NOTE PATIENT: Ursula Lane (74 year old) PCP: Emma Schultz MD SUMMARY: CT-03/27/25 obtained for right flank pain showed Bilateral nephrolithiasis. Bilateral nephrocalcinosis.. No hydronephrosis. Possible nonobstructing calculus, 3 mm within the right ureter at the level of pelvic inlet " ASSESSMENT/PLAN: 1. Bilateral nephrolithiasis (N20.0) 2. Nephrocalcinosis (E83.59) 3. Nephrolithiasis (N20.0) - Recent CT scan on 03/27 showed multiple calculi in both kidneys as well as renal calcifications. No hydronephrosis observed. Chronic back pain may be related, but no acute pain reported during stone passage. Discussed surveillance versus intervention; leaning towards surveillance due to patient's history of passing stones without significant discomfort. Educated on dietary modifications to reduce oxalate intake and increase hydration. Ordered metabolic workup including blood tests and a 24-hour urine collection to identify risk factors for stone formation. Will provide a comprehensive list of dietary recommendations. Follow-up after completion of metabolic workup to discuss results and further preventive measures. 4. Gross hematuria (R31.0) - Hematuria noted during recent stone passage, exacerbated by anticoagulation therapy with Eliquis. Discussed differential diagnosis, including potential malignancies of the urinary tract. Ordered CT urogram to evaluate the urinary tract for any obstructive or neoplastic processes. Scheduled cystoscopy to directly visualize the bladder and urethra; procedure to be performed in-office with local anesthesia. Ordered urine cytology to assess for abnormal cells. Patient understands the importance of ruling out serious causes of hematuria and agrees to the proposed diagnostic workup. Follow-up appointment to review results and discuss further management. FOLLOW UP: Return for cystoscopy with CT urogram and cytology. CHIEF COMPLAINT: The patient is a 74-year-old female with nephrolithiasis and nephrocalcinosis, presenting for evaluation of recurrent gross hematuria and management of nephrolithiasis. HISTORY OF PRESENT ILLNESS: The patient is a 74-year-old female with a history of nephrolithiasis and nephrocalcinosis, presenting for evaluation of recurrent kidney stones and hematuria. Nephrolithiasis: - Passed a kidney stone on 03/09 while visiting family in [place]. - Episode lasted all night with significant hematuria. - Currently on Eliquis; concerned about prolonged bleeding, which stopped by mid-morning. - Denies si (more content not included)... Normal [facility] Urate SerPl-mCncon 5 Urate [Mass/Vol] 2.8 mg/dL Normal 2.5-6.6 [facility] Comment on above: Order Comment: Speci men Type: BLOOD SPECIMENOrdering Facility: [facility] Address: [address] [place] [address] Performed By: #### 3 [id number] ####[facility] LABIA [id number] [place] [address] [place] [address] FLANK WO IVCONon 03-27-[address] FLANK WO IVCON * * *Final Report* * * DATE OF EXAM: Mar 27 2025 8:25AM [facility] 0529 - CT FLANK WO IVCON / PROCEDURE REASON: Calculus of ureter * * * * Physician Interpretation * * * * EXAMINATION: CT ABDOMEN AND PELVIS WITHOUT IV CONTRAST (Renal stone protocol) CLINICAL HISTORY: Right flank pain. Hematuria. TECHNIQUE: Non-contrast imaging of the abdomen and pelvis was performed through the urinary tract. Study performed without intravenous or oral contrast to evaluate for urinary tract calculus. MQ: [id number]_1 Contrast: IV contrast: None Oral contrast: None CT Radiation dose: Integrated dose-length product (DLP) for this visit = 169 mGy*cm. CT Dose Reduction Employed: Automated exposure control(AEC) and iterative recon COMPARISON: None. RESULT: Limitations: Unenhanced imaging is limited for the evaluation of some renal and other intra-abdominal and pelvic pathology. Urinary Tract: Right kidney and ureter: 1 cm lower pole incidental angiomyolipoma. Nephrocalcinosis. Greater than 20 nonobstructing stones measure up to 0.5 cm. No hydronephrosis. No finding to suggest suspicious mass in the unenhanced kidney. Possible nonobstructing calculus, 3 mm within the right ureter at the level of pelvic inlet. Image 90 series 5, image 52 series 7. Image 55 series 8 Left kidney and ureter: Nephrocalcinosis. Greater than 20 nonobstructing stones. The largest is 0.8 cm. No hydronephrosis. No finding to suggest cyst or mass in the unenhanced kidney. Bladder: No calculus. Abdomen and Pelvis: Liver: Unremarkable. Biliary: The gallbladder is unremarkable. No biliary dilatation Spleen: No splenomegaly. Pancreas: Unremarkable. Adrenals: Normal. GI Tract: No bowel dilation. The appendix appears normal . Mild diverticulosis without diverticulitis. Significant retained fecal material within the colon. Lymph Nodes: No lymphadenopathy. Mesentery/peritoneum: No ascites. Vasculature: Arterial atherosclerotic disease without aneurysm. Pelvis: No mass or ascites. Bones and Soft Tissues: No acute abnormality. Lower thorax: Unremarkable. Localizer images: No additional findings. IMPRESSION: Bilateral nephrolithiasis. Bilateral nephrocalcinosis.. No hydronephrosis. Possible nonobstructing calculus, 3 mm within the right ureter at the level of pelvic inlet Custody Officer: [facility] Transcribe Date/Time: Mar 27 2025 12:55P Dictated by : FLORECITA MEDINA MD This examination was interpreted and the report reviewed and electronically signed by: FLORECITA MEDINA MD on Mar 27 2025 1:05PM EST [id number] Normal [facility] CNOVon 03-20-2025 CNOV Office Visit (INTMWS ) YO,URSULA ([id number]) 1950 F T Date Time Provider Department 03/20/25 8:40 AM EMMA SCHULTZ INTMWS During your visit today, we recorded the following information about you: Pulse Respiration Blood pressure Weight 71/minute 16/minute 111/67 62.5 kg Emma Schultz MD 03/20/2025 9:20 AM Signed We discussed your arrhythmia and recent cardiac testing: - Your echocardiogram results were normal, with no signs of major heart problems. Your heart's size, function, and relaxation were all within normal limits. - The nuclear monitoring technician showed mostly normal sinus rhythm with occasional supraventricular tachycardia episodes. These episodes were rare, brief, and not concerning at this time. - There is no need to see your twisthand before your scheduled appointment in September. We discussed your use of the CPAP machine for sleep apnea: - It is normal to take time to adjust to the CPAP machine. You are making progress, and your sleep disturbances have already decreased on some nights. - Continue using the CPAP machine nightly. If you continue to struggle, contact the company where you purchased the machine to discuss potential adjustments to the settings. - You may continue taking melatonin and Alderyl (a natural sleep aid) to help you fall asleep while adjusting to the CPAP machine. We discussed your recent kidney stone: - You passed a kidney stone on March 09. While you experienced bleeding due to being on Eliquis, the bleeding stopped on its own and is not concerning at this time. - To assess for any remaining kidney stones, I have ordered a CT scan of your kidneys. Please schedule this test at your earliest convenience. We discussed your use of Eliquis for paroxysmal atrial fibrillation: - You will need to remain on Eliquis long-term to reduce your risk of stroke, especially as you approach age 75. The benefits of staying on Eliquis outweigh the risks of bleeding. - If you experience significant bleeding or other concerns, please let me know immediately. - You have one refill left on your current prescription. If you need a long-term supply, consider transitioning to the [facility] mail-in service. We discussed your emotional health and caregiving stress: - You are experiencing symptoms of ambiguous grief and acute stress related to caregiving for your . This is a normal but challenging process. - I have placed a referral for short-term counseling through behavioral health resources. Please follow up with them to schedule an appointment. - Counseling can provide a safe space to process your emotions and develop coping strategies to manage stress and caregiving challenges. Next steps: - Schedule a CT scan of your kidneys to check for any remaining stones. - Continue using your CPAP machine nightly and contact the company for adjustments if needed. - Follow up with behavioral health resources for counseling. - Continue taking Eliquis as prescribed and refill your prescription as needed. - Let me know if you experience any new or worsening symptoms, including significant bleeding, changes in memory, or concerns with your health. Emma Schultz MD 03/20/2025 10:14 AM Signed Reason for Visit Follow up pap usage HPI Mohini Lane is a 74-year-old female with a history of paroxysmal atrial fibrillation, nephrolithiasis, and SAIMA, presenting for follow-up on arrhythmia and recent diagnostic tests. She also reports a recent episode of hematuria and is experiencing sleep disturbances and stress related to caregiving for her , who has dementia. Mohini reports passing a kidney stone on 03/09, during which she experienced hematuria throughout the night. She describes the hematuria as significant, noting that on two occasions, the urine appeared to be "pure blood." The bleeding ceased by the morning. She expresses concern about the bleeding due to her current use of Eliquis but was relieved when it stopped. She recently underwent an echocardiogram and wore a nuclear monitoring technician. She inquires about the results, specifically asking if there were any indications of a major heart problem. Mohini started using a CPAP machine 5 days ago for SAIMA and reports struggling to adjust to it. She wakes up frequently at night but notes some improvement in sleep disturbances, which have decreased according to data on her phone. She believes the CPAP is helping and mentions using a small nose mask that is more comfortable than the one she had in the hospital. She has been taking an herbal sleep aid, Aldaril, and melatonin to help her sleep but forgot to take them last night, resulting in poor sleep. Mohini is experiencing high stress levels due to her 's dementia. She describes symptoms of ambiguous grief and expresses interest in talking to a counselor. Her exhibits (more content not included)... Normal [facility] 03-20-2025 [facility] Telephone (PSYLME) YOURSULA ([id number]) 1950 F T Date Time Provider Department 03/20/25 ZULMA MAHONEY PSYLME During your visit today, we recorded the following information about you: Zulma Mahoney LPCC 03/20/2025 12:04 PM Signed Behavioral Health Social Work Progress Note Patient identified for [facility] from: PCP Reason for referral: Resources Behavioral Health Resources: Psychology - talk therapy [facility] encounter type: Telephone Encounter Attempts to Outreach: 1 attempt Patient Discharged?: No Patient reported that caregiver was able to meet their needs today?: N/A Phone call placed today that went to [employer]. Left my contact information and brief nature of call. Initial outreach also completed via Portr sending list of in network providers with insurance. SAIRA Harding-S March 20, 2025 Allergies As of Date: 03/20/2025 Noted Allergy Reaction BONIVA (IBANDRONATE) 08/21/2021 14 - Other: See Comments Comments: Was so down and out for 4 weeks she does not want the medication FOSAMAX (ALENDRONATE) 08/21/2021 14 - Other: See Comments Comments: She was down for a month after taking them . Just did not tolerate them at all [id number] REDUCTASE INHIBIT*08/21/2021 17 - Myalgia Comments: Restless legs. Date Reviewed: 03/20/2025 Reviewed by: Essence Cartwright MA - Fully Assessed Reason for Visit: consult [Other] Prescriptions as of 03/20/2025 - CPAP/BIPAP/OTHER Type .CPAPSettings into a note to see current settings/supplies/DME information. - CPAP/BIPAP/OTHER Type .CPAPSettings into a note to see current settings/supplies/DME information. - apixaban (ELIQUIS) 5 mg tab(s) Take 1 tablet by mouth two times a day. - CPAP/BIPAP/OTHER Type .CPAPSettings into a note to see current settings/supplies/DME information. - multivitamin tablet Take 1 tablet by mouth once daily. - rosuvastatin (CRESTOR) 10 mg tablet Take 1 tablet by mouth once daily. - SUMAtriptan (IMITREX) 20 mg/actuation nasal spray Use 1 spray in the nose as needed. - levothyroxine (SYNTHROID) 50 mcg tablet Take 1 tablet by mouth daily before breakfast. - acebutolol (SECTRAL) 200 mg capsule Take 1 capsule by mouth two times a day. - albuterol HFA (VENTOLIN HFA) 90 mcg/actuation inhaler Inhale 2 Puffs as instructed every 4 hours as needed for wheezing/shortness of breath. - azelastine 0.1% nasal spray Use 1 [place] in each nostril two times a day. - niacin (NIACIN) 500 mg tablet Take 500 mg by mouth daily with breakfast. - lecithin 1,000 mg chew Take 600 mg by mouth once daily. - ubidecarenone Q-10 (COENZYME Q-10) 10 mg cap Take by mouth twice daily. - VIT D3-FOLIC XBKL-B1-H0-B12 ORAL Take by mouth. - GAMMA-AMINOBUTYRIC ACID, BULK, MISC - polyethylene glycol 3350 (MIRALAX ORAL) Take by mouth once daily. - glucosam/chond-msm1/C/ castro/bor ([id number] COMPLEX ORAL) Take by mouth once daily. - magnesium glycinate (MAG GLYCINATE ORAL) Take by mouth once daily. 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] 06/10/2022 Degenerative disc disease, cervical [M50.30] 01/03/2023 Cervical spondylosis [M47.812] 01/03/2023 Acute pain of right shoulder [M25.511] 11/15/2023 RUE weakness [R29.898] 11/15/2023 Snoring [R06.83] 01/16/2025 Gastroesophageal reflux disease without esophag*01/16/2025 RLS (restless legs syndrome) [G25.81] 01/16/2025 Encounter Status:Closed by ZULMA MAHONEY on 03/20/25 [facility] Telephone (PSYLME) URSULA L[address] ([id number]) 1950 [facility] Date Time Provider Department 03/20/25 ZULMA MAHONEY PSYLME During your visit today, we recorded the following information about you: Zulma Mahoney LPCC 03/20/2025 4:08 PM Signed Behavioral Health Social Work Progress Note Patient identified for [facility] from: PCP Reason for referral: Resources Behavioral Health Resources: Psychology - talk therapy [facility] encounter type: Telephone Encounter, Portr Message Attempts to Outreach: 3 attempts Referral made: Psychology - External Psychology-External referral type: Therapy Reason for external referral: Patient choice, Patient needs services closer to home Final Disposition: Resources given Patient Discharged?: Yes therapist spoke with patient who is specifically looking for a therapist specializing in anticipatory grief. therapist sending her a list of resources to [facility]. SAIRA Harding-S March 20, 2025 Allergies As of Date: 03/20/2025 Noted Allergy Reaction BONIVA (IBANDRONATE) 08/21/2021 14 - Other: See Comments Comments: Was so down and out for 4 weeks she does not want the medication FOSAMAX (ALENDRONATE) 08/21/2021 14 - Other: See Comments Comments: She was down for a month after taking them . Just did not tolerate them at all [id number]-[id number] REDUCTASE INHIBIT*08/21/2021 17 - Myalgia Comments: Restless legs. Date Reviewed: 03/20/2025 Reviewed by: Essence Cartwright MA - Fully Assessed Reason for Visit: consult [Other] Prescriptions as of 03/20/2025 - CPAP/BIPAP/OTHER Type .CPAPSettings into a note to see current settings/supplies/DME information. - CPAP/BIPAP/OTHER Type .CPAPSettings into a note to see current settings/supplies/DME information. - apixaban (ELIQUIS) 5 mg tab(s) Take 1 tablet by mouth two times a day. - CPAP/BIPAP/OTHER Type .CPAPSettings into a note to see current settings/supplies/DME information. - multivitamin tablet Take 1 tablet by mouth once daily. - rosuvastatin (CRESTOR) 10 mg tablet Take 1 tablet by mouth once daily. - SUMAtriptan (IMITREX) 20 mg/actuation nasal spray Use 1 spray in the nose as needed. - levothyroxine (SYNTHROID) 50 mcg tablet Take 1 tablet by mouth daily before breakfast. - acebutolol (SECTRAL) 200 mg capsule Take 1 capsule by mouth two times a day. - albuterol HFA (VENTOLIN HFA) 90 mcg/actuation inhaler Inhale 2 Puffs as instructed every 4 hours as needed for wheezing/shortness of breath. - azelastine 0.1% nasal spray Use 1 [place] in each nostril two times a day. - niacin (NIACIN) 500 mg tablet Take 500 mg by mouth daily with breakfast. - lecithin 1,000 mg chew Take 600 mg by mouth once daily. - ubidecarenone Q-10 (COENZYME Q-10) 10 mg cap Take by mouth twice daily. - VIT D3-FOLIC ECUR-M9-T7-B12 ORAL Take by mouth. - GAMMA-AMINOBUTYRIC ACID, BULK, MISC - polyethylene glycol 3350 (MIRALAX ORAL) Take by mouth once daily. - glucosam/chond-msm1/C/ castro/bor ([id number]-FVIWK-GZD COMPLEX ORAL) Take by mouth once daily. - magnesium glycinate (MAG GLYCINATE ORAL) Take by mouth once daily. 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] 06/10/2022 Degenerative disc disease, cervical [M50.30] 01/03/2023 Cervical spondylosis [M47.812] 01/03/2023 Acute pain of right shoulder [M25.511] 11/15/2023 RUE weakness [R29.898] 11/15/2023 Snoring [R06.83] 01/16/2025 Gastroesophageal reflux disease without esophag*01/16/2025 RLS (restless legs syndrome) [G25.81] 01/16/2025 Encounter Status:Closed by ZULMA MAHONEY on 03/20/25 [facility] 03-07-2025 CNPN Telephone (INTMWS) URSULA L[address] ([id number]) 1950 [facility] Date Time Provider Department 03/07/25 EMMA SCHULTZ INTWS During your visit today, we recorded the following information about you: Wilma Garcia RN 03/07/2025 3:54 PM Signed Pt called in and reports her insurance denied her getting a CPAP. She states she called around and was able to find one she could afford at [facility]. She reports she needs a Rx for the CPAP. Pt had her study done at [facility] in [place]. I didn't know if they would send in the CPAP order of if Dr Schultz would. I told her it wouldn't hurt to call over there to check as well. I let her know I would send a message through to provider also. Please call and advise. EUSEBIO Dinh Amanda, RN 03/11/2025 11:07 AM Signed Called Pt and she said the the [facility] in [place] said they would send and Rx to [facility]. She states she hasn't heard back for either yet. I let her know to give us a call back if she needed anything else. EUSEBIO Dinh Brittany L, MA 03/18/2025 1:59 PM Signed Received fax from [facility] with update: Pended new AutoCPAP with pressures are above. ABNER Shaffer Brittany L, MA 03/18/2025 1:59 PM Signed Addended by: ESSENCE CARTWRIGHT on: 03/18/2025 01:59 PM Modules accepted: Orders Emma Schultz MD 03/18/2025 5:35 PM Signed Addended by: EMMA SCHULTZ on: 03/18/2025 05:35 PM Modules accepted: Essence Ba MA 03/19/2025 4:01 PM Signed Order faxed to [facility]. ABNER Shaffer Brittany L, MA 03/27/2025 10:38 AM Signed Addended by: ESSENCE CARTWRIGHT on: 03/27/2025 10:38 AM Modules accepted: Essence Ba MA 03/27/2025 10:55 AM Signed Received new communication from [facility] (refer to link below). Scan on 03/27/2025 10:37 AM by Provider, External, CHANC: [facility] CPAP communication 03/27/25 Pended order for new recommended pressure at 8-12 and sleep medicine consult to get patient scheduled with Andreia Steel. ABNER Shaffer Brittany L, MA 03/27/2025 10:55 AM Signed Addended by: ESSENCE CARTWRIGHT on: 03/27/2025 10:55 AM Modules accepted: Emma Zuniga MD 03/28/2025 6:20 PM Signed Addended by: EMMA SCHULTZ on: 03/28/2025 06:20 PM Modules accepted: Orders Allergies As of Date: 03/07/2025 Noted Allergy Reaction BONIVA (IBANDRONATE) 08/21/2021 14 - Other: See Comments Comments: Was so down and out for 4 weeks she does not want the medication FOSAMAX (ALENDRONATE) 08/21/2021 14 - Other: See Comments Comments: She was down for a month after taking them . Just did not tolerate them at all [id number]-JSF-[id number] REDUCTASE INHIBIT*08/21/2021 17 - Myalgia Comments: Restless legs. Date Reviewed: 02/15/2025 Reviewed by: Jessica Concepcion APRN.AUTO SERVICE WRITER - Fully Assessed Reason for Visit: Order for CPAP [Other] Primary Visit Diagnosis:Sleep apnea, unspecified type [G47.30] Other Visit Diagnosis:Obstructive sleep apnea syndrome [G47.33] Order(s):PAP THERAPY ORDER [[id number]] Order #: [id number]: 1 CPAP/BIPAP/OTHERType .CPAPSettings into a note to see current settings/supplies/DME information.Disp: 1 eachRfl: 0 PAP THERAPY ORDER [[id number]] Order #: [id number]: 1 CPAP/BIPAP/OTHERType .CPAPSettings into a note to see current settings/supplies/DME information.Disp: 1 eachRfl: 0 CONSULT TO SLEEP MEDICINE - ADULT [[id number]] Order #: [id number]: 1 FUTURE Prescriptions as of 03/28/2025 - CPAP/BIPAP/OTHER Type .CPAPSettings into a note to see current settings/supplies/DME information. - CPAP/BIPAP/OTHER Type .CPAPSettings into a note to see current settings/supplies/DME information. - CPAP/BIPAP/OTHER Type .CPAPSettings into a note to see current settings/supplies/DME information. - apixaban (ELIQUIS) 5 mg tab(s) Take 1 tablet by mouth two times a day. - CPAP/BIPAP/OTHER Type .CPAPSettings into a note to see current settings/supplies/DME information. - multivitamin tablet Take 1 tablet by mouth once daily. - rosuvastatin (CRESTOR) 10 mg tablet Take 1 tablet by mouth once daily. - SUMAtriptan (IMITREX) 20 mg/actuation nasal spray Use 1 spray in the nose as needed. - levothyroxine (SYNTHROID) 50 mcg tablet Take 1 tablet by mouth daily before breakfast. - acebutolol (SECTRAL) 200 mg capsule Take 1 capsule by mouth two times a day. - albuterol HFA (VENTOLIN HFA) 90 mcg/actuation inhaler Inhale 2 Puffs as instructed every 4 hours as needed for wheezing/shortness of breath. - azelastine 0.1% nasal spray Use 1 [place] in each nostril two times a day. - niacin (NIACIN) 500 mg tablet Take 500 mg by mouth daily with breakfast. - lecithin 1,000 mg chew Take 600 mg by mouth once daily. - ubidecarenone Q-10 (COENZYME Q-10) 10 mg cap Take by mouth twice daily. - VIT D3-FOLIC VLTO-N0-I7-B12 ORAL (more content not included)... Normal [facility] Vilma 02-19-2025 BERTA Telephone (AMBER [place]) URSULA LANE ([id number]) 1950 F [facility] Date Time Provider Department 02/19/25 YAMILKA WILDE During your visit today, we recorded the following information about you: Gretel Porras RN 02/19/2025 2:34 PM Signed Rex from [employer] calling in and states they received another order for a CPAP machine but pt does not qualify. Her total AHI is 4.5 and it has to be at least 5-15 to get CPAP machine covered. And with those numbers, they would need a secondary diagnosis such as Afib, HTN, or extreme daytime sleepiness. Notified Rex that pt was recently dx with Afib. He said her total AHI is still only 4.5 which is the problem. If AHI was 16 or higher, then she would definitely qualify for a machine. Her total AHI has to be 5.0 or above. He states this is the guidelines for straight Medicare to get CPAP covered. Yamilka Wilde APRN saw pt on 01/16/25 and had the following information in her note: Average AHI was 4.5. In REM sleep and supine her AHI was 16. PSG also documented moderate to severe snoring. Insurance did approve a titration study which she completed and documented need for CPAP +10 cm H2O. However, her insurance is refusing to cover the CPAP, now. Unsure why. 2. SAIMA (obstructive sleep apnea) - ICD9: 327.23, ICD10: G47.33 Patient with mild SAIMA, AHI 4.5. In rem and supine, AHI 16 Patient s/s of SAIMA -- would benefit from CPAP trial. - INTERMITTT ASSIST ANASTACIO [place] CPAP - CONSULT ENT And in instructions to pt, Yamilka documented the following: I am sending orders to [place] for the CPAP. We may need to do a peer to peer to try to get a trial approved. If you don't hear anything within 2 weeks about the CPAP, get a message to use so we can follow up. Yamilka Wilde APRN.AUTO SERVICE WRITER 02/25/2025 8:38 AM Signed Can we see if I can do a peer to peer for this patient Elinor Enriquez OCCA 02/25/2025 9:23 AM Signed Called and spoke to Rex [facility]. He stated there is no denial but Medicare has their guidelines and patient does not qualify. I asked who could be contacted to discuss and he stated oh gosh I don't know. He then looked at Medicare website and does not see anything about who to contact to discuss. Redetermination request form is online. He did say he would look into this further on who to contact or what can be done and if he finds something he will call back. Yamilka Wilde APRN.AUTO SERVICE WRITER 02/25/2025 12:22 PM Signed Please update patient that insurance is denying. We are trying to see if we can do an appeal, but so far no luck. If she wants to do the CPAP, may need to pay out of pocket. Shannen Oliva OCCA 02/25/2025 1:20 PM Signed Patient stated last Tuesday she had an afib incident that lasted all night. Her pcp told her this was due to her not having a cpap and she states her pcp re-submitted it with an afib diagnosis. She asked if this would work? Yamilka Wilde APRN.AUTO SERVICE WRITER 02/25/2025 3:36 PM Signed Can try -- we already discussed this. It is her insurance. Again, she may need to pay out of pocket. AHI 4.5, but sounds like her insurance isn't going to allow it unless her AHI 5 or >. Elinor Enriquez OCCA 02/25/2025 3:46 PM Signed Spoke to Rex and Patient does not qualify even with AFIB diagnosis per guidelines Yamilka Wilde APRN.AUTO SERVICE WRITER 02/26/2025 8:32 AM Signed Please update prior message -- unless her insurance changes, only way to get the CPAP is pay out of pocket Elinor Enriquez OCCA 02/26/2025 8:47 AM Signed Called patient and informed of message, patient voiced understanding. She would like to see what the machine will cost out of pocket. Will inform Rex at [facility] to reach out to patient to discuss self pay for the machine. PENELOPE Tovar Sara, OCCA 02/26/2025 8:57 AM Signed Spoke to Rex at [facility] and advised patient would like to discuss out of pocket costs. He stated he will reach out to the patient. Shannen Oliva OCCA 03/07/2025 3:54 PM Signed Patient called in asking that we send her cpap order to [facility] in [place] at [phone]. Slep study, order office note and face sheet faxed. PENELOPE Saini Allergies As of Date: 02/19/2025 Noted Allergy Reaction BONIVA (IBANDRONATE) 08/21/2021 14 - Other: See Comments Comments: Was so down and out for 4 weeks she does not want the medication FOSAMAX (ALENDRONATE) 08/21/2021 14 - Other: See Comments Comments: She was down for a month after taking them . Just did not tolerate them at all NGFXMTE-ITV-KNQ REDUCTASE INHIBIT*08/21/2021 17 - Myalgia Comments: Restless legs. Date Reviewed: 02/15/2025 Reviewed by: Jessica Concepcion APRN.AUTO SERVICE WRITER - Fully Assessed Reason for Visit: Problem with CPAP machine orders [Other] Cmt: re: CPAP machine Prescriptions as (more content not included)... [facility] Vilma 02-18-2025 CNPN Telephone (TERESA) [address]RSUL[address] ([id number]) 1950 F [facility] Date Time Provider Department 02/18/25 JESSICA CONCEPCION During your visit today, we recorded the following information about you: Oscar Pringle RN 02/18/2025 8:53 AM Signed patient is calling in due to she saw Jessica on Tuesday and was to have an order for her CPAP sent to [employer] in [place]. Patient called them this morning to check the status and was informed there was no order sent to them for this. Please review and advise on in order was sent, and notify patient with update. Perlita Ingram MA 02/18/2025 12:57 PM Signed Patient notified that order sent. Allergies As of Date: 02/18/2025 Noted Allergy Reaction BONIVA (IBANDRONATE) 08/21/2021 14 - Other: See Comments Comments: Was so down and out for 4 weeks she does not want the medication FOSAMAX (ALENDRONATE) 08/21/2021 14 - Other: See Comments Comments: She was down for a month after taking them . Just did not tolerate them at all ZFQOVYL-BDZ-GEV REDUCTASE INHIBIT*08/21/2021 17 - Myalgia Comments: Restless legs. Date Reviewed: 02/15/2025 Reviewed by: Jessica Concepcion APRN.CNP - Fully Assessed Reason for Visit: Orders [681] Cmt: CPAP Prescriptions as of 02/18/2025 - CPAP/BIPAP/OTHER Type .CPAPSettings into a note to see current settings/supplies/DME information. - apixaban (ELIQUIS) 5 mg tab(s) Take 1 tablet by mouth two times a day. - CPAP/BIPAP/OTHER Type .CPAPSettings into a note to see current settings/supplies/DME information. - multivitamin tablet Take 1 tablet by mouth once daily. - rosuvastatin (CRESTOR) 10 mg tablet Take 1 tablet by mouth once daily. - SUMAtriptan (IMITREX) 20 mg/actuation nasal spray Use 1 spray in the nose as needed. - levothyroxine (SYNTHROID) 50 mcg tablet Take 1 tablet by mouth daily before breakfast. - acebutolol (SECTRAL) 200 mg capsule Take 1 capsule by mouth two times a day. - albuterol HFA (VENTOLIN HFA) 90 mcg/actuation inhaler Inhale 2 Puffs as instructed every 4 hours as needed for wheezing/shortness of breath. - azelastine 0.1% nasal spray Use 1 [place] in each nostril two times a day. - niacin (NIACIN) 500 mg tablet Take 500 mg by mouth daily with breakfast. - lecithin 1,000 mg chew Take 600 mg by mouth once daily. - ubidecarenone Q-10 (COENZYME Q-10) 10 mg cap Take by mouth twice daily. - VIT D3-FOLIC GJHW-O8-C2-B12 ORAL Take by mouth. - GAMMA-AMINOBUTYRIC ACID, BULK, MISC - polyethylene glycol 3350 (MIRALAX ORAL) Take by mouth once daily. - glucosam/chond-msm1/C/ castro/bor ([id number]-LGVUV-AOS COMPLEX ORAL) Take by mouth once daily. - magnesium glycinate (MAG GLYCINATE ORAL) Take by mouth once daily. 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] 06/10/2022 Degenerative disc disease, cervical [M50.30] 01/03/2023 Cervical spondylosis [M47.812] 01/03/2023 Acute pain of right shoulder [M25.511] 11/15/2023 RUE weakness [R29.898] 11/15/2023 Snoring [R06.83] 01/16/2025 Gastroesophageal reflux disease without esophag*01/16/2025 RLS (restless legs syndrome) [G25.81] 01/16/2025 Encounter Status:Closed by OSCAR PRINGLE on 02/18/25 [facility] E[facility] 02-18-2025 Echocardiography Echocardiography Report: Transthoracic Echo [facility] Date of service: 02/18/2025 1:41:39 PM INTERIOR FINISH Ordering physician: JESSICA CONCEPCION Exam indication: Atrial fibrillation Technologist: Yamilka Luque [facility] Interpreting physician: Katelyn Drummond MD PATIENT: Name: URSULA LANE : 1950 Age: 74 years Gender: F History of arrhythmia. Primary rhythm: sinus. Height: 160.00 cm BSA: 1.65 m Weight: 61.05 kg BMI: 23.8 kg/m Heart rate 70 bpm Blood pressure 132/74 mmHg Color Doppler was utilized to interrogate the cardiac valves assessed and spectral Doppler was utilized to determine the flow velocities and pressure gradients reported in this exam. Myocardial strain analysis was performed in this exam to aid in the assessment of cardiac function. MEASUREMENTS: Value Indexed Normal Max aortic dimension 3.4 cm Ao < 3.8 Left atrial volume 63 ml (biplane A-L) 38 ml/m Sofie <= 34 LV ID (diastole) 4.2 cm (2D) 2.54 cm/m LV ID (systole) 2.1 cm (2D) 1.30 cm/m IVS, leaflet tips 1.0 cm (2D) Posterior wall thickness 1.0 cm (2D) Left ventricular mass 135 g (2D) 82 g/m Global peak long strain -19.7 % LV stroke volume 42 ml (2D biplane) LV end diastolic volume 70 ml (2D biplane) 42.5 ml/m 29<=EDVi<62 LV end systolic volume 28 ml (2D biplane) 17.2 ml/m Ejection Fraction 59 % (2D biplane) EF > 54 FINDINGS: LEFT VENTRICLE The left ventricle is normal in size. Left ventricular systolic function is normal. Global LV myocardial strain is normal. Normal left ventricular diastolic function. Mitral annular lateral E/e': 6.7. Mitral annular septal E/e': 8.4. Wall Motion: All scored segments are normal. RIGHT VENTRICLE The right ventricle is normal in size. Right ventricular systolic function is normal. RV systolic tissue Doppler velocity is 13.0 cm/s. Tricuspid annular displacement is 1.6 cm. Estimated right ventricular systolic pressure is 27 mmHg consistent with normal pulmonary artery pressures. Estimated right atrial pressure is 3 mmHg (although IVC not seen). LEFT ATRIUM The left atrial cavity is mildly dilated. Pulmonary Veins: The pulmonary venous pattern showed normal systolic flow. RIGHT ATRIUM The right atrial cavity is normal in size. Inferior Vena Cava: The inferior vena cava appears normal measuring 1.4 cm. MITRAL VALVE The mitral valve leaflets are structurally normal. There is mild (1+) mitral valve regurgitation. The pressure half time is 69 msec. The peak mitral E/A ratio is 1.27. The average mitral E/e' ratio is 7.6. The mitral flow deceleration time is 237 msec. TRICUSPID VALVE The tricuspid valve leaflets are structurally normal. There is mild (1+) tricuspid valve regurgitation. AORTIC VALVE The aortic valve cusps are structurally normal. There is no aortic valve regurgitation. Tricuspid aortic valve. The peak gradient is 5 mmHg (peak velocity = 113.9 cm/s). PULMONIC VALVE The pulmonic valve cusps are structurally normal. There is no pulmonic valve regurgitation. AORTA The visualized aorta is normal in size. Measurements - Mid ascending aorta 3.4 cm. INTERATRIAL SEPTUM There is no evidence of intracardiac shunting as detected by Doppler. PERICARDIUM There is no pericardial effusion. There is an epicardial fat pad. CONCLUSIONS: - Exam indication: Atrial fibrillation - The left ventricle is normal in size. Left ventricular systolic function is normal. EF = 59 5% (2D biplane) Normal left ventricular diastolic function. - The right ventricle is normal in size. Right ventricular systolic function is normal. - The left atrial cavity is mildly dilated. - There are no significant valvular abnormalities. - The patient has not had a prior CC echocardiographic exam for comparison. * * * Final * * * [facility] Image : [id number] Normal [facility] CBC W Auto Differential pane l (Bld)on 02-15-2025 Basophils (Bld) [#/Vol] 0.09 10*3/uL Normal <0.11 [facility] Comment on above: Order Comment: Speci men Type: BLOOD SPECIMENOrdering Facility: [facility] Address: [address] [place] [address] Performed By: #### 5 7021-8 ####[facility] LABCLIA [id number] [address], [place] [address] [place] Basophils/100 WBC (Bld) 1.0 % Normal [facility] Comment on above: Order Comment: Speci men Type: BLOOD SPECIMENOrdering Facility: [facility] Address: [address] [place] [address] Performed By: #### 5 7021-8 ####[facility] LABCLIA [id number] [address], [place] [address] [place] Differential cell count method Nom (Bld) Auto Normal [facility] Comment on above: Order Comment: Speci men Type: BLOOD SPECIMENOrdering Facility: [facility] Address: [address] [place] [address] Performed By: #### 5 7021-8 ####[facility] LABCLIA [id number] [address], [place] [address] [place] Eosinophils (Bld) [#/Vol] 0.23 10*3/uL Normal <0.46 [facility] Comment on above: Order Comment: Speci men Type: BLOOD SPECIMENOrdering Facility: [facility] Address: [address] [place] [address] Performed By: #### 5 7021-8 ####[facility] LABCLIA [id number] [address], [facility]95 [place] Eosinophils/100 WBC (Bld) 2.7 % Normal [facility] Comment on above: Order Comment: Speci men Type: BLOOD SPECIMENOrdering Facility: [facility] Address: [address] [place] [address] Performed By: #### 5 7021-8 ####[facility] LABCLIA [id number] [address], [facility]95 [place] Erythrocyte distribution width (RBC) [Ratio] 13.4 % Normal 11.5-15.0 [facility] Comment on above: Order Comment: Speci men Type: BLOOD SPECIMENOrdering Facility: [facility] Address: [address] [place] [address] Performed By: #### 5 7021-8 ####[facility] LABCLIA [id number] [place] [address] [place] Hematocrit (Bld) [Volume fraction] 41.8 % Normal 36.0-46.0 [facility] Comment on above: Order Comment: Speci men Type: BLOOD SPECIMENOrdering Facility: [facility] Address: [address] [place] [address] Performed By: #### 5 7021-8 ####[facility] LABCLIA [id number] [place] [address] [place] Hemoglobin (Bld) [Mass/Vol] 13.6 g/dL Normal 11.5-15.5 [facility] Comment on above: Order Comment: Speci men Type: BLOOD SPECIMENOrdering Facility: [facility] Address: [address] [place] [address] Performed By: #### 5 7021-8 ####[facility] LABIA [id number] [place] [address] [place] Immature granulocytes (Bld) [#/Vol] 10*3/uL Normal <0.10 [facility] Comment on above: Order Comment: Speci men Type: BLOOD SPECIMENOrdering Facility: [facility] Address: [address] [place] [address] Performed By: #### 5 7021-8 ####[facility] LABCLIA [id number] [place] [address] [place] Immature granulocytes/100 WBC (Bld) 0.2 % Normal [facility] Comment on above: Order Comment: Speci men Type: BLOOD SPECIMENOrdering Facility: [facility] Address: [address] [place] [address] Performed By: #### 5 7021-8 ####[facility] LABCLIA [id number] [place] [address] [place] Lymphocytes (Bld) [#/Vol] 3.15 10*3/uL Normal 1.00-4.00 [facility] Comment on above: Order Comment: Speci men Type: BLOOD SPECIMENOrdering Facility: [facility] Address: [address] [place] [address] Performed By: #### 5 7021-8 ####[facility] LABCLIA [id number] [place] [address] [place] Lymphocytes/100 WBC (Bld) 36.4 % Normal [facility] Comment on above: Order Comment: Speci men Type: BLOOD SPECIMENOrdering Facility: [facility] Address: [address] [place] [address] Performed By: #### 5 7021-8 ####[facility] LABIA [id number] [place] [address] [place] MCH (RBC) [Entitic mass] 29.9 pg Normal 26.0-34.0 [facility] Comment on above: Order Comment: Speci men Type: BLOOD SPECIMENOrdering Facility: [facility] Address: [address] [place] [address] Performed By: #### 5 7021-8 ####[facility] LABCLIA [id number] [place] [address] [place] MCHC (RBC) [Mass/Vol] 32.5 g/dL Normal 30.5-36.0 [facility] Comment on above: Order Comment: Speci men Type: BLOOD SPECIMENOrdering Facility: [facility] Address: [address] [place] [address] Performed By: #### 5 7021-8 ####[facility] LABCLIA [id number] [place] [address] [place] MCV (RBC) [Entitic vol] 91.9 fL Normal 80.0-100.0 [facility] Comment on above: Order Comment: Speci men Type: BLOOD SPECIMENOrdering Facility: [facility] Address: [address] [place] [address] Performed By: #### 5 7021-8 ####[facility] LABIA [id number] [place] [address] [place] Monocytes (Bld) [#/Vol] 0.47 10*3/uL Normal <0.87 [facility] Comment on above: Order Comment: Speci men Type: BLOOD SPECIMENOrdering Facility: [facility] Address: [address] [place] [address] Performed By: #### 5 7021-8 ####[facility] LABIA [id number] [place] [address] [place] Monocytes/100 WBC (Bld) 5.4 % Normal [facility] Comment on above: Order Comment: Speci men Type: BLOOD SPECIMENOrdering Facility: [facility] Address: [address] [place] [address] Performed By: #### 5 7021-8 ####[facility] LABIA [id number] [place] [address] [place] Neutrophils (Bld) [#/Vol] 4.69 10*3/uL Normal 1.45-7.50 [facility] Comment on above: Order Comment: Speci men Type: BLOOD SPECIMENOrdering Facility: [facility] Address: [address] [place] [address] Performed By: #### 5 7021-8 ####[facility] LABCLIA [id number] [place] [address] [place] Neutrophils/100 WBC (Bld) 54.3 % Normal [facility] Comment on above: Order Comment: Speci men Type: BLOOD SPECIMENOrdering Facility: [facility] Address: [address] [place], [place] [address] Performed By: #### 5 7021-8 ####[facility] LABCLIA [id number] [address] [address] [place] Nucleated RBC (Bld) [#/Vol] 10*3/uL Normal <0.01 [facility] Comment on above: Order Comment: Speci men Type: BLOOD SPECIMENOrdering Facility: [facility] Address: [address] [place] [address] Performed By: #### 5 7021-8 ####[facility] LABCLIA [id number] [place] [address] [place] Nucleated RBC/100 WBC (Bld) [Ratio] 0.0 /100 WBC Normal [facility] Comment on above: Order Comment: Speci men Type: BLOOD SPECIMENOrdering Facility: [facility] Address: [address] [place] [address] Performed By: #### 5 7021-8 ####[facility] LABCLIA [id number] [place] [address] [place] Platelet mean volume (Bld) [Entitic vol] 10.6 fL Normal 9.0-12.7 [facility] Comment on above: Order Comment: Speci men Type: BLOOD SPECIMENOrdering Facility: [facility] Address: [address] [place] [address] Performed By: #### 5 7021-8 ####[facility] LABCLIA [id number] [place] [id number] [place] Platelets (Bld) [#/Vol] 234 10*3/uL Normal 150-400 [facility] Comment on above: Order Comment: Speci men Type: BLOOD SPECIMENOrdering Facility: [facility] Address: [address] [place] [address] Performed By: #### 5 7021-8 ####[facility] LABCLIA [id number] [place] [address] [place] RBC (Bld) [#/Vol] 4.55 10*6/uL Normal 3.90-5.20 [facility] Comment on above: Order Comment: Speci men Type: BLOOD SPECIMENOrdering Facility: [facility] Address: [address] [place] [address] Performed By: #### 5 7021-8 ####[facility] LABCLIA [id number] [place] [address] [place] WBC (Bld) [#/Vol] 8.65 10*3/uL Normal 3.70-11.00 [facility] Comment on above: Order Comment: Speci men Type: BLOOD SPECIMENOrdering Facility: [facility] Address: [address] [place] [address] Performed By: #### 5 7021-8 ####[facility] LABIA [id number] [place] [address] [facility] [place] CNOVon 02-15-2025 CNOV Office Visit (INTMWS ) URSULA LANE ([id number]) 1950 F CHT Date Time Provider Department 02/15/25 1:00 PM JESSICA CONCEPCION INTMWS During your visit today, we recorded the following information about you: Pulse Blood pressure Weight 71/minute 100/64 61.1 kg Jessica Concepcion APRN.AUTO SERVICE WRITER 02/15/2025 2:02 PM Signed CC: Patient presents with: Palpitations: This morning around 1am woke up with pounding in chest, apple watch showed afib, lasted until around 5am, fatigue, no cardiac sx currently HPI Ursula Lane is a 74 year old female who presents today for palpitations and irregular heart rhythm. Recording using ambient TRIBAX software for draft documentation of the visit was discussed with the patient/authorized customer operations representative; all questions welcomed and answered. Patient/authorized customer operations representative agreed to proceed Atrial Fibrillation: - Woke up at 01:00 with palpitations, described as a "loud, thumping, funny feeling." - Episodes lasted until approximately 05:30, with Apple Watch readings showing AFib with heart rates in the 100s to 120s consistently a-fib - Denies previous episodes of AFib; has experienced similar palpitations in the past but not recently. - Denies associated dyspnea, chest pressure, nausea, emesis, or changes in urination. - Reports mild dizziness this morning when getting up and down outside. - No recent infections, fever, chills, cough, or wheezing. - No recent medication changes except for the addition of a vegetable-based calcium supplement with vitamin D and vitamin K. - Taking magnesium supplement; discontinued omeprazole due to kidney concerns. - Denies taking Fosamax due to concerns about Stewart's esophagus. - Denies recent missed doses of acebutolol which she takes for previous diagnosed ventricular fibrillation years ago - Recent dietary intake included a salty dish (mushroom melodiei) at dinner last night; does not typically add salt to food. - Recent activity included using a battery-powered weed eater outside for a short period due to heat. - recent illness of lyme disease she took 21 days of doxycyline for and had full relief of symptoms. Ventricular Fibrillation?: - Diagnosed in late 30s to early 40s; currently managed with acebutolol. - Initial symptoms included skipped beats during aerobics classes, leading to a stress test and initiation of medication. REVIEW OF SYSTEMS See HPI PAST MEDICAL HISTORY Diagnosis Date Disorder of thyroid Irregular heart beat Migraine, intractable Sleep apnea No past surgical history on file. ALLERGIES Boniva [Ibandronate], Fosamax [Alendronate], and Pcqdfkk-Teo-Jrp Reductase Inhibitors MEDICATIONS CPAP/BIPAP/OTHER Type .CPAPSettings into a note to see current settings/supplies/DME information. multivitamin tablet Take 1 tablet by mouth once daily. rosuvastatin (CRESTOR) 10 mg tablet Take 1 tablet by mouth once daily. SUMAtriptan (IMITREX) 20 mg/actuation nasal spray Use 1 spray in the nose as needed. levothyroxine (SYNTHROID) 50 mcg tablet Take 1 tablet by mouth daily before breakfast. acebutolol (SECTRAL) 200 mg capsule Take 1 capsule by mouth two times a day. albuterol HFA (VENTOLIN HFA) 90 mcg/actuation inhaler Inhale 2 Puffs as instructed every 4 hours as needed for wheezing/shortness of breath. azelastine 0.1% nasal spray Use 1 [place] in each nostril two times a day. lecithin 1,000 mg chew Take 600 mg by mouth once daily. ubidecarenone Q-10 (COENZYME Q-10) 10 mg cap Take by mouth twice daily. VIT D3-FOLIC SFXC-Y9-V6-B12 ORAL Take by mouth. GAMMA-AMINOBUTYRIC ACID, BULK, MISC polyethylene glycol 3350 (MIRALAX ORAL) Take by mouth once daily. glucosam/chond-msm1/C/ castro/bor (BBTIPFMPTRE-FPMNA-RYT COMPLEX ORAL) Take by mouth once daily. magnesium glycinate (MAG GLYCINATE ORAL) Take by mouth once daily. CPAP/BIPAP/OTHER Type .CPAPSettings into a note to see current settings/supplies/DME information. apixaban (ELIQUIS) 5 mg tab(s) Take 1 tablet by mouth two times a day. niacin (NIACIN) 500 mg tablet Take 500 mg by mouth daily with breakfast. No family history on file. SOCIAL HISTORY[1] PHYSICAL EXAM BP 100/64 (BP Site: Left Arm, BP Position: Sitting, BP Cuff Size: Regular Adult) Pulse 71 Wt 61.1 kg (134 lb 9.6 oz) SpO2 98% BMI 23.84 kg/m? General Appearance: well appearing, in no acute distress, alert Eyes: conjunctiva pink and moist, no icterus, sclera white, non-injected Neck: Thyroid normal size and symmetric without palpable nodules, Neck supple, No adenopathy Lymph nodes: No cervical lymphadenopathy, No supraclavicular lymphadenopathy, Lungs: Lungs clear to auscultation. No wheezing, rhonchi, rales. Heart: RRR without murmur, gallop, or rubs. No ectopy Health maintenance reviewed with patient: Hepatitis C Screening Never done DTaP,Tdap,Td Vaccine(1 - Tdap) due on 09/15/2005 Pneum (more content not included)... Normal [facility] Comprehensive metabolic 2000 panelon 02-15-2025 Albumin [Mass/Vol] 4.3 g/dL Normal 3.9-4.9 [facility] Comment on above: Order Comment: Speci men Type: BLOOD SPECIMENOrdering Facility: [facility] Address: [address] [address] Performed By: #### 2 4323-8, 16476-3, 6-3 ####[facility] LABCLIA [id number] [address] [address] [place] ALP [Catalytic activity/Vol] 74 U/L Normal 34-123 [facility] Comment on above: Order Comment: Speci men Type: BLOOD SPECIMENOrdering Facility: [facility] Address: [address] [place] [address] Performed By: #### 2 4323-8, , 6-3 ####[facility] LABCLIA [id number] [place] [id number] [place] ALT [Catalytic activity/Vol] 20 U/L Normal 7-38 [facility] Comment on above: Order Comment: Speci men Type: BLOOD SPECIMENOrdering Facility: [facility] Address: [address] [place] [place] [address] Performed By: #### 2 4323-8, , 6-3 ####[facility] LABCLIA [id number] [address] [address] [place] Anion gap [Moles/Vol] 12 mmol/L Normal 8-15 [facility] Comment on above: Order Comment: Speci men Type: BLOOD SPECIMENOrdering Facility: [facility] Address: [address] [place] [address] Performed By: #### 2 4323-8, 47802-7, 6-3 ####[facility] LABCLIA [id number] [address] [address] [place] AST [Catalytic activity/Vol] 15 U/L Normal 13-35 [facility] Comment on above: Order Comment: Speci men Type: BLOOD SPECIMENOrdering Facility: [facility] Address: [address] [place], [place] [address] Performed By: #### 2 4323-8, , 3015-3 ####[facility] LABCLIA [id number] [address] [address] [place] Bilirubin [Mass/Vol] 0.6 mg/dL Normal 0.2-1.3 [facility] Comment on above: Order Comment: Speci men Type: BLOOD SPECIMENOrdering Facility: [facility] Address: [address] [place] [address] Performed By: #### 2 4323-8, , 3 ####[facility] LABCLIA [id number] [place] [address] [place] Calcium [Mass/Vol] 9.6 mg/dL Normal 8.5-10.2 [facility] Comment on above: Order Comment: Speci men Type: BLOOD SPECIMENOrdering Facility: [facility] Address: [address] [place] [address] Performed By: #### 2 4323-8, , 3 ####[facility] LABCLIA [id number] [place] [id number] [place] Chloride [Moles/Vol] 103 mmol/L Normal 98-107 [facility] Comment on above: Order Comment: Speci men Type: BLOOD SPECIMENOrdering Facility: [facility] Address: [address] [place], [place] [address] Performed By: #### 2 4323-8, , 3 ####[facility] LABCLIA [id number] [address] [address] [place] CO2 [Moles/Vol] 25 mmol/L Normal 22-30 [facility] Comment on above: Order Comment: Speci men Type: BLOOD SPECIMENOrdering Facility: [facility] Address: [address] [place], [place] [address] Performed By: #### 2 4323-8, , 3 ####[facility] LABCLIA [id number] [address] [address] [place] Creatinine [Mass/Vol] 1.07 mg/dL High 0.58-0.96 [facility] Comment on above: Order Comment: Speci men Type: BLOOD SPECIMENOrdering Facility: [facility] Address: [address] [place], [place] [address] Performed By: #### 2 4323-8, , 3015-09 ####[facility] LABIA [id number] [address] [address] [place] eGFRcr SerPlBld CKD-EPI 2020 55 mL/min/1.73m??? Low >=60 [facility] Comment on above: Order Comment: Speci men Type: BLOOD SPECIMENOrdering Facility: [facility] Address: [address] [place] [address] Result Comment: Barbara mated Glomerular Filtration Rate (eGFR) is calculated using the 2020 CKD-EPI creatinine equation. This equation utilizes serum creatinine, sex, and age as parameters. The creatinine assay has traceable calibration to isotope dilution-mass spectrometry. Refer to KDIGO guidelines for clinical interpretation. In patients with unstable renal function, e.g. those with acute kidney injury, the eGFR may not accurately reflect actual GFR. Performed By: #### 2 4323-8, , 3 ####[facility] LABIA [id number] [address] [address] [place] Glucose [Mass/Vol] 82 mg/dL Normal 74-99 [facility] Comment on above: Order Comment: Speci men Type: BLOOD SPECIMENOrdering Facility: [facility] Address: [address] [place], [place] [id number] Result Comment: The [place] Diabetes Association (ADA) provides guidance for cutoff values for fasting glucose and random glucose. The ADA defines fasting as no caloric intake for at least 8 hours. Fasting plasma glucose results between 100 to 125 mg/dL indicate increased risk for diabetes (prediabetes). Fasting plasma glucose results greater than or equal to 126 mg/dL meet the criteria for diagnosis of diabetes. In the absence of unequivocal hyperglycemia, results should be confirmed by repeat testing. In a patient with classic symptoms of hyperglycemia or hyperglycemic crisis, random plasma glucose results greater than or equal to 200 mg/dL meet the criteria for diagnosis of diabetes. Reference: Standards of Medical Care in Diabetes 2016, [place] Diabetes Association. Diabetes Care. 2016.39(Suppl 1). Performed By: #### 2 4323-8, 38783-3, 3015-3 ####[facility] LABIA [id number] [place] [address] [place] Potassium [Moles/Vol] 4.4 mmol/L Normal 3.7-5.1 [facility] Comment on above: Order Comment: Speci men Type: BLOOD SPECIMENOrdering Facility: [facility] Address: [address] [place], [place] [address] Performed By: #### 2 4323-8, , 3 ####[facility] LABIA [id number] [address] [address] [place] Protein [Mass/Vol] 7.0 g/dL Normal 6.3-8.0 [facility] Comment on above: Order Comment: Speci men Type: BLOOD SPECIMENOrdering Facility: [facility] Address: [address] [id number] Performed By: #### 2 4323-8, , 3 ####[facility] LABIA [id number] [address] [address] [place] Sodium [Moles/Vol] 140 mmol/L Normal 136-144 [facility] Comment on above: Order Comment: Speci men Type: BLOOD SPECIMENOrdering Facility: [facility] Address: [address] [place], [place] [address] Performed By: #### 2 4323-8, 76265-3, 3016-3 ####[facility] [id number] [place] [id number] [place] Urea nitrogen [Mass/Vol] 25 mg/dL High 7-21 [facility] Comment on above: Order Comment: Speci men Type: BLOOD SPECIMENOrdering Facility: [facility] Address: [address] [place] [address] Performed By: #### 2 4323-8, 02221-4, 3016-3 ####[facility] LABIA [id number] [place] [id number] [place] ECG COMPLETEon 02-15-2025 ECG COMPLETE Ventricular Rate : 6 5 BPM Atrial Rate : 65 BPM P-R Interval : 160 ms QRS Duration : 70 ms Q-T Interval : 404 ms QTC Calculation(Bazett) : 420 ms Calculated P [place] : 24 degrees Calculated R [place] : 48 degrees Calculated T [place] : 51 degrees NORMAL SINUS RHYTHM NORMAL ECG Confirmed by MD DRUMMOND QARAB ([id number]) on 02/20/2025 11:33:35 AM NAME : URSULA LANE PID : [id number] : 1950 Gender : Female Race : ORD : [id number] Procedure Date : Feb 15 2025 12:02:09 Edit Date : Feb 20 2025 11:33:37 Diagnosis: NORMAL SINUS RHYTHM NORMAL ECG Confirmed by MD DRUMMOND QARAB ([id number]) on 02/20/2025 11:33:35 AM Test Reason : I49.9 Irregular heart rhythm Location : 185 : [facility] Overread By : MD DRUMMOND QARAB Edited By : MD DRUMMOND QARAB Referred By : , Acquired by : , Normal [facility] Magnesium SerPl-mCncon 02-15 Magnesium [Mass/Vol] 2.5 mg/dL High 1.7-2.3 [facility] Comment on above: Order Comment: Speci men Type: BLOOD SPECIMENOrdering Facility: [facility] Address: [address] [place], [place] [address] Performed By: #### 2 4323-8, 55655-5, 3016-3 ####[facility] LABCLIA [id number] [place] [id number] [place] TSH SerPl-aCncon 02-15-2025 TSH Qn 2.320 m[IU]/L Normal 0.270-4.200 [facility] Comment on above: Order Comment: Speci men Type: BLOOD SPECIMENOrdering Facility: [facility] Address: [address] [place], [place] [address] Performed By: #### 2 4323-8, 17771-3, 3016-3 ####[facility] LABCLIA [id number] [place] [id number] [facility] CNPNon 01-30-2025 CNPN Telephone (INTMWS) URSULA LANE ([id number]) 1950 F T Date Time Provider Department 01/30/25 EMMA SCHULTZ INTWS During your visit today, we recorded the following information about you: Wilma Garcia RN 01/30/2025 8:44 AM Signed Pt called in and reports she picked up the Fosamax and was reading the insert on it. 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 She states that this medication can cause higher risk of cancer too. Pt states she is not going to take the medication and wanted to let the provider know. Wilma Garcia RN Allergies As of Date: 01/30/2025 Noted Allergy Reaction BONIVA (IBANDRONATE) 08/21/2021 14 - Other: See Comments Comments: Was so down and out for 4 weeks she does not want the medication FOSAMAX (ALENDRONATE) 08/21/2021 14 - Other: See Comments Comments: She was down for a month after taking them . Just did not tolerate them at all [id number]-AMP REDUCTASE INHIBIT*08/21/2021 17 - Myalgia Comments: Restless legs. Date Reviewed: 01/28/2025 Reviewed by: Perlita Ingram MA - Fully Assessed Reason for Visit: Medication Problem [65] Prescriptions as of 01/30/2025 - alendronate (FOSAMAX) 70 mg tablet Take 1 tablet by mouth one time a week. - CPAP/BIPAP/OTHER Type .CPAPSettings into a note to see current settings/supplies/DME information. - multivitamin tablet Take 1 tablet by mouth once daily. - rosuvastatin (CRESTOR) 10 mg tablet Take 1 tablet by mouth once daily. - SUMAtriptan (IMITREX) 20 mg/actuation nasal spray Use 1 spray in the nose as needed. - omeprazole (PRILOSEC) 20 mg capsule Take 1 capsule by mouth every 12 hours. - levothyroxine (SYNTHROID) 50 mcg tablet Take 1 tablet by mouth daily before breakfast. - acebutolol (SECTRAL) 200 mg capsule Take 1 capsule by mouth two times a day. - albuterol HFA (VENTOLIN HFA) 90 mcg/actuation inhaler Inhale 2 Puffs as instructed every 4 hours as needed for wheezing/shortness of breath. - azelastine 0.1% nasal spray Use 1 [place] in each nostril two times a day. - niacin (NIACIN) 500 mg tablet Take 500 mg by mouth daily with breakfast. - lecithin 1,000 mg chew Take 600 mg by mouth once daily. - ubidecarenone Q-10 (COENZYME Q-10) 10 mg cap Take by mouth twice daily. - VIT D3-FOLIC VXBD-L7-F6-B12 ORAL Take by mouth. - GAMMA-AMINOBUTYRIC ACID, BULK, MISC - polyethylene glycol 3350 (MIRALAX ORAL) Take by mouth once daily. - glucosam/chond-msm1/C/ castro/bor ([id number]-ZBZ COMPLEX ORAL) Take by mouth once daily. - magnesium glycinate (MAG GLYCINATE ORAL) Take by mouth once daily. 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 burgdorferi IgG and IgM p beto (S)on 01-28-2025 B. burgdorferi IgG+IgM Qn (S) Negative Normal Negative [facility] Comment on above: Order Comment: Speci men Type: BLOOD SPECIMENOrdering Facility: [facility] Address: [address] [place] [address] Result Comment: Rece nt infection with B. burgdorferi sensu lato cannot be excluded if the specimen collected within four weeks after the onset of signs and symptoms or within six weeks after a known tick exposure. Clinical and epidemiological correlation is required. Performed By: #### 3 4942-3 ####[facility] LABCLIA [id number] [place] [address] [place] CNOVon 01-28-2025 CNOV Office Visit (INTMWS ) URSULA LANE ([id number]) 1950 F CHT Date Time Provider Department 01/28/25 9:20 AM EMMA SCHULTZ INTYaritzaWS During your visit today, we recorded the following information about you: Pulse Blood pressure Weight 60/minute 122/80 60.8 kg Emma Schultz MD 01/28/2025 10:22 AM Signed We discussed your recent history of Lyme disease: - You completed a 14-day course of doxycycline and an additional 7-day course prescribed by another provider. While you initially felt better, your fatigue has returned. - I have ordered a Lyme antibody test (IgG and IgM) to confirm whether there has been a conversion from negative to positive, which would indicate a recent infection. You can complete this test anytime within the next three months. We discussed your sleep apnea: - You are waiting for a CPAP machine from [facility] in [place]. Please follow up with them to confirm the status of your order. - Addressing your sleep apnea may help improve your fatigue. We discussed your kidney function: - Your kidney function (GFR) has been stable around 60, with one reading of 54. This indicates chronic kidney disease, which is likely related to aging. - To protect your kidney health, it is important to maintain good blood pressure control. We discussed your blood pressure: - Your blood pressure has increased slightly but remains within an acceptable range. This is likely due to age-related changes in your blood vessels. - Continue taking acebutolol as prescribed. We discussed your osteoporosis: - Your bone density shows significant osteoporosis, with a T-score of -3.6. Treatment is recommended. - We will retry Fosamax (alendronate) once weekly. This has been sent to your pharmacy. Please take it with a full glass of water as directed. - Continue taking 1,200 mg of calcium daily, either through food or supplements. - Your vitamin D and PTH levels are normal. - If you experience side effects with Fosamax, let me know, and we can discuss alternative treatments. Please continue with regular exercise and follow up with me if you have any concerns or if your symptoms worsen. Emma Schultz MD 01/28/2025 4:53 PM Signed Reason for Visit Follow up HPI Mohini Lane is a 74-year-old female with a history of Lyme disease, CKD, and osteoporosis, presenting with persistent fatigue, mid-back pain, and concerns about osteoporosis management. Mohini reports persistent fatigue following a recent diagnosis of Lyme disease. She completed a 14-day course of doxycycline and was subsequently prescribed an additional 7-day course by her sleep specialist due to unilateral tonsillar pain and lymphadenopathy. While she experienced temporary improvement, the fatigue has recurred. She is uncertain if the fatigue is attributable to Lyme disease or her sleep apnea. She is awaiting a CPAP machine, with the order placed on the 16th, but has not received it yet. She also reports a constant, dull pain in her mid-back, which she attributes to her kidneys. She notes a recent increase in her creatinine levels from 54 to 60 over the past 2-3 months. She has observed an increase in her blood pressure, which was previously well-controlled at approximately 100/60 mmHg with acebutolol, but has recently risen to 122/80 mmHg. Additionally, she expresses concerns about osteoporosis management. She has previously tried Fosamax and Boniva, both of which she did not tolerate well. She experienced significant adverse effects with Boniva, including severe malaise that lasted for 2 weeks, followed by a gradual improvement over the next 2 weeks. She is apprehensive about starting Prolia due to potential side effects and the long-term commitment required. She inquires about the possibility of retrying Fosamax. Social History Tobacco Use Smoking status: Never Smokeless tobacco: Never Vaping Use Vaping status: Never Used Substance Use Topics Alcohol use: Yes Alcohol/week: 1.0 standard drink of alcohol Types: 1 Glasses of Wine (5oz) per week Comment: at dinner Drug use: Never Past medical history, appointments, medications, allergies reviewed. Pertinent Lab/Diagnostic Studies are reviewed and discussed today Current Outpatient Medications: alendronate (FOSAMAX) 70 mg tablet CPAP/BIPAP/OTHER multivitamin tablet rosuvastatin (CRESTOR) 10 mg tablet SUMAtriptan (IMITREX) 20 mg/actuation nasal spray omeprazole (PRILOSEC) 20 mg capsule levothyroxine (SYNTHROID) 50 mcg tablet acebutolol (SECTRAL) 200 mg capsule albuterol HFA (VENTOLIN HFA) 90 mcg/actuation inhaler azelastine 0.1% nasal spray niacin (NIACIN) 500 mg tablet lecithin 1,000 mg chew ubidecarenone Q-10 (COENZYME Q-10) 10 mg cap VIT D3-FOLIC [id number]-[id number]-B12 ORAL GAMMA-AMINOBUTYRIC ACID, BULK, MISC polyethylene glycol 3350 (MIRALAX ORAL) glucos (more content not included)... Normal [facility] CNOVon 01-16-2025 [facility] Office Visit (PULMDOVNEW) URSULA LANE ([id number]) 1950 F T Date Time Provider Department 01/16/25 8:30 AM YAMILKA WILDE PULMDOVNEW During your visit today, we recorded the following information about you: Pulse Respiration Blood pressure Weight 67/minute 16/minute 112/70 61.4 kg Height 1.6 m Yamilka Wilde APRN.[facility] 01/16/2025 8:58 AM Signed I am sending orders to [place] for the CPAP. We may need to do a peer to peer to try to get a trial approved. In the meantime, we will have you follow up with ENT, Dr. Delgado, to see if there is anything they can do to help with snoring - which may help with the sleep apnea and sleep at night. If you don't hear anything within 2 weeks about the CPAP, get a message to use so we can follow up. You can try melatonin or alteril to help sleep, also. Sleep Hygiene Establish a regular routine that includes going to bed and getting up at the same time every day, even on weekends. Maintaining a consistent sleep-wake cycle is the watt to better health overall. Get an adequate amount of sleep every night. Determine the amount of sleep you need by keeping track of how long you sleep without using an alarm clock for a week. Maintain this "personal" sleep requirement. Go to bed when you are sleepy. If you have difficulty falling asleep or wake up shortly after going to sleep, leave the bedroom and read quietly or do some other relaxing activity. Avoid bright lights as this can cue your wake cycle. Develop sleep rituals before going to bed. Do the same things in the same order before going to bed to cue your body to slow down and relax. Avoid stress and worries at bedtime. Address tomorrow's activities, concerns, or distractions earlier in the day. Certain activities, such as listening to soft music, reading, or taking a warm bath, can help you wind down. Use your bed for sleeping and sex only. Often, doing other activities in bed like watching TV, paying bills, or working only serve to initiate worries and concerns. Let your mind associate the bed with sleeping, relaxing, and pleasure. Avoid heavy meals late in the evening; similarly, avoid going to bed hungry. A light snack, especially dairy foods, can help you sleep. Reduce your intake of caffeine and nicotine 4-6 hours before going to sleep. Stimulants interfere with your ability to fall asleep and progress into deep sleep. 200mg caffeine (a large [employer] coffee) taken at 8 AM will impair the sleep architecture that night. Avoid alcohol 4-6 hours before bedtime. As a depressant that slows brain activity, alcohol may initially make you tired, but you will end up having fragmented sleep. In addition, being tired intensifies the effects of alcohol. Alcohol also aggravates snoring and sleep apnea particularly in men. Exercise regularly. Regular exercise, even for 20 minutes, 3 times a week, promotes deep sleep. Don't nap for more than 30 minutes or after 3 PM. Avoiding naps all together will ensure that you are tired at night. Longer naps disrupt the body's ability to stay asleep. Maintain a dark, quiet room to sleep in at a temperature with which you are comfortable. Use sleeping aids conservatively, and avoid using them for more than one or two nights per month. Avoid sleeping pills altogether if you have obstructive sleep apnea because it can be a deadly combination. Yamilka Wilde APRN.[facility] 01/16/2025 9:34 AM Signed [facility] Department of Pulmonary AND Sleep Medicine Yamilka Wilde APRN.[employer] Consult Note REFERRING PROVIDER: Emma Schultz MD Ursula Lane is a 74 year old female who is here for evaluation of SAIMA and snoring. History of Illness Since Last Visit: Patient was referred for treatment of SAIMA. Her primary care physician completed a sleep study which documented mild SAIMA which became more moderate in supine and REM sleep. Average AHI was 4.5. In REM sleep and supine her AHI was 16. PSG also documented moderate to severe snoring. Insurance did approve a titration study which she completed and documented need for CPAP +10 cm H2O. However, her insurance is refusing to cover the CPAP, now. Unsure why. She continues to report a history of snoring, denies any history of witnessed apneas. She does complain of restless and disturbed sleep. She states she typically wakes 2-3 times per night at least. She often wakes in the morning feeling nonrefreshed and overall fatigue. She does complain of excessive daytime sleepiness. She denies any history of sleepwalking, but does complain of history of restless leg and leg movements at night. She denies any history of tobacco use. 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 [facility] [place] [address]RSUL[address] L[address] ([id number]) 1950 F [facility] Date Time Provider Department 01/16/25 YAMILKA WILDE During your visit today, we recorded the following information about you: Teja Brice MA 01/16/2025 10:02 AM Signed Faxed orders, last office visit, demographics and any testing related to the order(s) to [facility] in [place]. Teja Brice MA Allergies As of Date: 01/16/2025 Noted Allergy Reaction BONIVA (IBANDRONATE) 08/21/2021 14 - Other: See Comments Comments: Was so down and out for 4 weeks she does not want the medication FOSAMAX (ALENDRONATE) 08/21/2021 14 - Other: See Comments Comments: She was down for a month after taking them . Just did not tolerate them at all DITMEIY-UHS-FXX REDUCTASE INHIBIT*08/21/2021 17 - Myalgia Comments: Restless legs. Date Reviewed: 01/16/2025 Reviewed by: Teja Brice MA - Fully Assessed Reason for Visit: Orders [681] Cmt: CPAP Prescriptions as of 01/16/2025 - doxycycline (VIBRA-TABS) 100 mg tablet Take 1 tablet by mouth two times a day for 7 days. - CPAP/BIPAP/OTHER Type .CPAPSettings into a note to see current settings/supplies/DME information. - multivitamin tablet Take 1 tablet by mouth once daily. - rosuvastatin (CRESTOR) 10 mg tablet Take 1 tablet by mouth once daily. - SUMAtriptan (IMITREX) 20 mg/actuation nasal spray Use 1 spray in the nose as needed. - omeprazole (PRILOSEC) 20 mg capsule Take 1 capsule by mouth every 12 hours. - levothyroxine (SYNTHROID) 50 mcg tablet Take 1 tablet by mouth daily before breakfast. - acebutolol (SECTRAL) 200 mg capsule Take 1 capsule by mouth two times a day. - albuterol HFA (VENTOLIN HFA) 90 mcg/actuation inhaler Inhale 2 Puffs as instructed every 4 hours as needed for wheezing/shortness of breath. - azelastine 0.1% nasal spray Use 1 [place] in each nostril two times a day. - niacin (NIACIN) 500 mg tablet Take 500 mg by mouth daily with breakfast. - lecithin 1,000 mg chew Take 600 mg by mouth once daily. - ubidecarenone Q-10 (COENZYME Q-10) 10 mg cap Take by mouth twice daily. - VIT D3-FOLIC GMED-O9-V4-B12 ORAL Take by mouth. - GAMMA-AMINOBUTYRIC ACID, BULK, MISC - polyethylene glycol 3350 (MIRALAX ORAL) Take by mouth once daily. - glucosam/chond-msm1/C/ castro/bor (JGBCLXKEMIS-RIHXJ-CIA COMPLEX ORAL) Take by mouth once daily. - magnesium glycinate (MAG GLYCINATE ORAL) Take by mouth once daily. 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] 06/10/2022 Degenerative disc disease, cervical [M50.30] 01/03/2023 Cervical spondylosis [M47.812] 01/03/2023 Acute pain of right shoulder [M25.511] 11/15/2023 RUE weakness [R29.898] 11/15/2023 Snoring [R06.83] 01/16/2025 Gastroesophageal reflux disease without esophag*01/16/2025 RLS (restless legs syndrome) [G25.81] 01/16/2025 Encounter Status:Closed by TEJA BRICE on 01/16/25 [facility] CNPN Telephone (DANIOVMEETA W) URSULA LANE ([id number]) 1950 F CHT Date Time Provider Department 01/16/25 YAMILKA WILDEOVNERoseann During your visit today, we recorded the following information about you: Teja Brice MA 01/16/2025 10:01 AM Signed Faxed referral, demographics, last office visit and any related testing to ENT- Dr. Tillman. Teja Brice MA Allergies As of Date: 01/16/2025 Noted Allergy Reaction BONIVA (IBANDRONATE) 08/21/2021 14 - Other: See Comments Comments: Was so down and out for 4 weeks she does not want the medication FOSAMAX (ALENDRONATE) 08/21/2021 14 - Other: See Comments Comments: She was down for a month after taking them . Just did not tolerate them at all LMLPMUN-XCG-ATK REDUCTASE INHIBIT*08/21/2021 17 - Myalgia Comments: Restless legs. Date Reviewed: 01/16/2025 Reviewed by: Teja Brice MA - Fully Assessed Reason for Visit: Consult [173] Cmt: ENT Prescriptions as of 01/16/2025 - doxycycline (VIBRA-TABS) 100 mg tablet Take 1 tablet by mouth two times a day for 7 days. - CPAP/BIPAP/OTHER Type .CPAPSettings into a note to see current settings/supplies/DME information. - multivitamin tablet Take 1 tablet by mouth once daily. - rosuvastatin (CRESTOR) 10 mg tablet Take 1 tablet by mouth once daily. - SUMAtriptan (IMITREX) 20 mg/actuation nasal spray Use 1 spray in the nose as needed. - omeprazole (PRILOSEC) 20 mg capsule Take 1 capsule by mouth every 12 hours. - levothyroxine (SYNTHROID) 50 mcg tablet Take 1 tablet by mouth daily before breakfast. - acebutolol (SECTRAL) 200 mg capsule Take 1 capsule by mouth two times a day. - albuterol HFA (VENTOLIN HFA) 90 mcg/actuation inhaler Inhale 2 Puffs as instructed every 4 hours as needed for wheezing/shortness of breath. - azelastine 0.1% nasal spray Use 1 [place] in each nostril two times a day. - niacin (NIACIN) 500 mg tablet Take 500 mg by mouth daily with breakfast. - lecithin 1,000 mg chew Take 600 mg by mouth once daily. - ubidecarenone Q-10 (COENZYME Q-10) 10 mg cap Take by mouth twice daily. - VIT D3-FOLIC YIKL-C5-A0-B12 ORAL Take by mouth. - GAMMA-AMINOBUTYRIC ACID, BULK, MISC - polyethylene glycol 3350 (MIRALAX ORAL) Take by mouth once daily. - glucosam/chond-msm1/C/ castro/bor ([id number]-SPN COMPLEX ORAL) Take by mouth once daily. - magnesium glycinate (MAG GLYCINATE ORAL) Take by mouth once daily. 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] 06/10/2022 Degenerative disc disease, cervical [M50.30] 01/03/2023 Cervical spondylosis [M47.812] 01/03/2023 Acute pain of right shoulder [M25.511] 11/15/2023 RUE weakness [R29.898] 11/15/2023 Snoring [R06.83] 01/16/2025 Gastroesophageal reflux disease without esophag*01/16/2025 RLS (restless legs syndrome) [G25.81] 01/16/2025 Encounter Status:Closed by TEJA BRICE on 01/16/25 [facility] Vilma 01-11-2025 BERTA Telephone (INTMWS) [address]RSUL[address] ([id number]) 1950 F T Date Time Provider Department 01/11/25 EMMA SCHULTZ During your visit today, we recorded the following information about you: Yamilka Stringer RN 01/11/2025 2:02 PM Signed Patient calls and states that she was in office for tick bite. Patient reports that she finished her antibiotics. Patient states that she continues to feel fatigued and her joints continue to ache. Patient is asking about another round of antibiotic. Please review and advise, EUSEBIO Bailey Chitra, MD 01/17/2025 2:17 PM Signed I dont think that is the way this Is treated. I am sorry. Regards, Emma Schultz MD Allergies As of Date: 01/11/2025 Noted Allergy Reaction BONIVA (IBANDRONATE) 08/21/2021 14 - Other: See Comments Comments: Was so down and out for 4 weeks she does not want the medication FOSAMAX (ALENDRONATE) 08/21/2021 14 - Other: See Comments Comments: She was down for a month after taking them . Just did not tolerate them at all [id number] REDUCTASE INHIBIT*08/21/2021 17 - Myalgia Comments: Restless legs. Date Reviewed: 12/24/2024 Reviewed by: Essence Cartwright MA - Fully Assessed Reason for Visit: Patient Update [1234] Prescriptions as of 01/17/2025 - doxycycline (VIBRA-TABS) 100 mg tablet Take 1 tablet by mouth two times a day for 7 days. - CPAP/BIPAP/OTHER Type .CPAPSettings into a note to see current settings/supplies/DME information. - multivitamin tablet Take 1 tablet by mouth once daily. - rosuvastatin (CRESTOR) 10 mg tablet Take 1 tablet by mouth once daily. - SUMAtriptan (IMITREX) 20 mg/actuation nasal spray Use 1 spray in the nose as needed. - omeprazole (PRILOSEC) 20 mg capsule Take 1 capsule by mouth every 12 hours. - levothyroxine (SYNTHROID) 50 mcg tablet Take 1 tablet by mouth daily before breakfast. - acebutolol (SECTRAL) 200 mg capsule Take 1 capsule by mouth two times a day. - albuterol HFA (VENTOLIN HFA) 90 mcg/actuation inhaler Inhale 2 Puffs as instructed every 4 hours as needed for wheezing/shortness of breath. - azelastine 0.1% nasal spray Use 1 [place] in each nostril two times a day. - niacin (NIACIN) 500 mg tablet Take 500 mg by mouth daily with breakfast. - lecithin 1,000 mg chew Take 600 mg by mouth once daily. - ubidecarenone Q-10 (COENZYME Q-10) 10 mg cap Take by mouth twice daily. - VIT D3-FOLIC OVTM-F3-J5-B12 ORAL Take by mouth. - GAMMA-AMINOBUTYRIC ACID, BULK, MISC - polyethylene glycol 3350 (MIRALAX ORAL) Take by mouth once daily. - glucosam/chond-msm1/C/ castro/bor ([id number]-CJA COMPLEX ORAL) Take by mouth once daily. - magnesium glycinate (MAG GLYCINATE ORAL) Take by mouth once daily. 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] 06/10/2022 Degenerative disc disease, cervical [M50.30] 01/03/2023 Cervical spondylosis [M47.812] 01/03/2023 Acute pain of right shoulder [M25.511] 11/15/2023 RUE weakness [R29.898] 11/15/2023 Encounter Status:Closed by ESSENCE CARTWRIGHT on 01/17/25 [facility] Vilma 01-03-2025 RONALDN Telephone (PODIWS) [address]RSULA [address] ([id number]) 1950 F T Date Time Provider Department 01/03/25 ALIZE YUAN During your visit today, we recorded the following information about you: Wilma Casey RN 01/03/2025 8:56 AM Signed EMG results scanned into chart from [facility] Bree Theodore LPN 01/08/2025 8:19 AM Signed Alize Yuan Amanda, EUSEBIO; [facility] Pool24 minutes ago (7:54 AM) Emg was normal VAISHALI Espinosa Amelia, LPN 01/08/2025 8:35 AM Signed Patient notified of results and provider's instructions. Patient verbalizes understanding but would like to know why her foot buzzes. PATRICIA Rowe Amelia, LPN 01/17/2025 4:20 PM Signed Alize Yuan to Mi 01/11/25 3:40 PM I cannot explain based on emg why her foot has numbness or "buzzes". If she would like to try a pain cream, I am happy to call in to a compounding pharmacy VAISHALI Espinosa Amelia, LPN 01/17/2025 4:20 PM Signed Called patient to provide below information. No response. Left VM. PATRICIA Rowe Amy M, MA 01/18/2025 8:57 AM Signed Patient returned call. Message from Dr. Yuan given. She would like to give the cream a try. Please send to compounding pharmacy. Wilma Casey RN 01/18/2025 2:38 PM Signed Script faxed at this time Allergies As of Date: 01/03/2025 Noted Allergy Reaction BONIVA (IBANDRONATE) 08/21/2021 14 - Other: See Comments Comments: Was so down and out for 4 weeks she does not want the medication FOSAMAX (ALENDRONATE) 08/21/2021 14 - Other: See Comments Comments: She was down for a month after taking them . Just did not tolerate them at all [id number] REDUCTASE INHIBIT*08/21/2021 17 - Myalgia Comments: Restless legs. Date Reviewed: 12/24/2024 Reviewed by: Essence Cartwright MA - Fully Assessed Reason for Visit: EMG [2012] Prescriptions as of 01/18/2025 - doxycycline (VIBRA-TABS) 100 mg tablet Take 1 tablet by mouth two times a day for 7 days. - CPAP/BIPAP/OTHER Type .CPAPSettings into a note to see current settings/supplies/DME information. - multivitamin tablet Take 1 tablet by mouth once daily. - rosuvastatin (CRESTOR) 10 mg tablet Take 1 tablet by mouth once daily. - SUMAtriptan (IMITREX) 20 mg/actuation nasal spray Use 1 spray in the nose as needed. - omeprazole (PRILOSEC) 20 mg capsule Take 1 capsule by mouth every 12 hours. - levothyroxine (SYNTHROID) 50 mcg tablet Take 1 tablet by mouth daily before breakfast. - acebutolol (SECTRAL) 200 mg capsule Take 1 capsule by mouth two times a day. - albuterol HFA (VENTOLIN HFA) 90 mcg/actuation inhaler Inhale 2 Puffs as instructed every 4 hours as needed for wheezing/shortness of breath. - azelastine 0.1% nasal spray Use 1 [place] in each nostril two times a day. - niacin (NIACIN) 500 mg tablet Take 500 mg by mouth daily with breakfast. - lecithin 1,000 mg chew Take 600 mg by mouth once daily. - ubidecarenone Q-10 (COENZYME Q-10) 10 mg cap Take by mouth twice daily. - VIT D3-FOLIC [id number]-W6-M0-B12 ORAL Take by mouth. - GAMMA-AMINOBUTYRIC ACID, BULK, MISC - polyethylene glycol 3350 (MIRALAX ORAL) Take by mouth once daily. - glucosam/chond-msm1/C/ castro/bor ([id number]-NYX COMPLEX ORAL) Take by mouth once daily. - magnesium glycinate (MAG GLYCINATE ORAL) Take by mouth once daily. 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] 06/10/2022 Degenerative disc disease, cervical [M50.30] 01/03/2023 Cervical spondylosis [M47.812] 01/03/2023 Acute pain of right shoulder [M25.511] 11/15/2023 RUE weakness [R29.898] 11/15/2023 Encounter Status:Closed by RAJIV BREE on 01/18/25 Normal [facility] NCS and/or EMG Patienton NCS and/or EMG Patient [facility] Pulmonary Services/Neurology [address] [place] [address] MR#: [id number] Acct: [id number] Name: URSULA LANE Rep #: [id number] : 1950 74 From: Manuel Franklin MD Referring Dr: Alize Yuan DPYaritza Status: REG CLI Location: PSN Date: 01/02/25 Sex: F C NCS and/or EMG Patient Report Ordering Doctor: Alize Yuan DATE OF SERVICE: 01/02/25 Ursula presents with complaints of an intermittent buzzing in the right foot. Electrodiagnostic findings: Right peroneal motor nerve measured at the tib anterior shows normal distal latency with normal amplitude and conduction velocity. No decrease in conduction velocity across the fibular head. Right tibial motor responses are within normal limits. Sensory responses are normal. Needle EMG testing was performed the right lower limb. All muscles tested showed no evidence of denervation with normal motor unit action potentials. Electrodiagnostic impression: This is a normal electrodiagnostic study of the right lower limb. There is no electrodiagnostic evidence for peripheral neuropathy or lumbosacral radiculopathy. Multi Select Codes Neurology Neurology Interp Codes: 89630-84 Musc test done w/n test comp (interp) and 15859-58 Nrv cndj test 7- 8 studies (interp) 01/02/25 1506 Date Manuel Franklin MD CC: DPM Dr. Alize Yuan; Dr. Manuel Franklin MD; Dr. Emma Schultz MD Date Dictated: 01/02/25 1504 Date Transcribed: 01/02/251503 Custody Officer: RUBEN [facility]igned [facility] BANNER Telephone (FAMPWS) [address]RSULA L[address] ([id number]) 1950 F CHT Date Time Provider Department 12/25/24 [facility] During your visit today, we recorded the following information about you: Tiesha Molina LPN 12/25/2024 9:05 AM Signed Pt had an appt 12/24/24. Pt was to make a follow up appt with Dr. Kristy Tobias in [place] in regards to the sleep study he signed off on.(Done on 12/11) Pt reports when she called the office she was advised a referral needed to be faxed to them in order for pt to get an appt. Please review and advise. . PATRICIA West Chitra, MD 12/25/2024 5:04 PM Signed I put the order on December 06 Please assist the patient. RegardsEmma MD, Brittany L, MA 12/26/2024 9:27 AM Signed Printed sleep medicine referral AND faxed to [phone]. Essence Cartwright MA Allergies As of Date: 12/25/2024 Noted Allergy Reaction BONIVA (IBANDRONATE) 08/21/2021 14 - Other: See Comments Comments: Was so down and out for 4 weeks she does not want the medication FOSAMAX (ALENDRONATE) 08/21/2021 14 - Other: See Comments Comments: She was down for a month after taking them . Just did not tolerate them at all [id number] REDUCTASE INHIBIT*08/21/2021 17 - Myalgia Comments: Restless legs. Date Reviewed: 12/24/2024 Reviewed by: Essence Cartwright MA - Fully Assessed Reason for Visit: Referral / [facility] [employer] [facility] [[id number]] Prescriptions as of 12/26/2024 - doxycycline monohydrate (MONODOX) 100 mg capsule Take 1 capsule by mouth two times a day for 14 days. - CPAP/BIPAP/OTHER Type .CPAPSettings into a note to see current settings/supplies/DME information. - multivitamin tablet Take 1 tablet by mouth once daily. - rosuvastatin (CRESTOR) 10 mg tablet Take 1 tablet by mouth once daily. - SUMAtriptan (IMITREX) 20 mg/actuation nasal spray Use 1 spray in the nose as needed. - omeprazole (PRILOSEC) 20 mg capsule Take 1 capsule by mouth every 12 hours. - levothyroxine (SYNTHROID) 50 mcg tablet Take 1 tablet by mouth daily before breakfast. - acebutolol (SECTRAL) 200 mg capsule Take 1 capsule by mouth two times a day. - albuterol HFA (VENTOLIN HFA) 90 mcg/actuation inhaler Inhale 2 Puffs as instructed every 4 hours as needed for wheezing/shortness of breath. - azelastine 0.1% nasal spray Use 1 [place] in each nostril two times a day. - niacin (NIACIN) 500 mg tablet Take 500 mg by mouth daily with breakfast. - lecithin 1,000 mg chew Take 600 mg by mouth once daily. - ubidecarenone Q-10 (COENZYME Q-10) 10 mg cap Take by mouth twice daily. - VIT D3-FOLIC [id number]-C0-M8-B12 ORAL Take by mouth. - GAMMA-AMINOBUTYRIC ACID, BULK, MISC - polyethylene glycol 3350 (MIRALAX ORAL) Take by mouth once daily. - glucosam/chond-msm1/C/ castro/bor ([id number]-NZYFL-UET COMPLEX ORAL) Take by mouth once daily. - magnesium glycinate (MAG GLYCINATE ORAL) Take by mouth once daily. 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 Pt reports she got two doses of atb yesterday. During the night fever got up to 102. Pt reports she took another dose of atb this morning. Pt reports fever is 101.3. Pt is asking if she should be concerned and how long until the atb starts to work. PATRICIA West Julia, LPN 12/25/2024 2:16 PM Signed Per patient's My Chart encounter. I have been running a fever both last night and today. It went to a high of 102 degrees last night and up and down today from 99.4 to 100.2. What has me concerned is the two areas with the bites are getting larger and darker. Please let me know if I should be concerned or if it the medication working. Emma Schultz MD 12/25/2024 5:13 PM Signed I am sorry that she is having that reaction. I would continue meds , hopefully fever subsides in a few days Continue therapy , can take doxy for 4 days more to make a total of 14 days if she wants to Regards, Essence Prasad MD, MA 12/26/2024 9:30 AM Signed Patient notified of results, verbalizes understanding of instructions. Essence Cartwright MA Allergies As of Date: 12/25/2024 Noted Allergy Reaction BONIVA (IBANDRONATE) 08/21/2021 14 - Other: See Comments Comments: Was so down and out for 4 weeks she does not want the medication FOSAMAX (ALENDRONATE) 08/21/2021 14 - Other: See Comments Comments: She was down for a month after taking them . Just did not tolerate them at all [id number] REDUCTASE INHIBIT*08/21/2021 17 - Myalgia Comments: Restless legs. Date Reviewed: 12/24/2024 Reviewed by: Essence Cartwright MA - Fully Assessed Reason for Visit: Fever [47] Prescriptions as of 12/26/2024 - doxycycline monohydrate (MONODOX) 100 mg capsule Take 1 capsule by mouth two times a day for 14 days. - CPAP/BIPAP/OTHER Type .CPAPSettings into a note to see current settings/supplies/DME information. - multivitamin tablet Take 1 tablet by mouth once daily. - rosuvastatin (CRESTOR) 10 mg tablet Take 1 tablet by mouth once daily. - SUMAtriptan (IMITREX) 20 mg/actuation nasal spray Use 1 spray in the nose as needed. - omeprazole (PRILOSEC) 20 mg capsule Take 1 capsule by mouth every 12 hours. - levothyroxine (SYNTHROID) 50 mcg tablet Take 1 tablet by mouth daily before breakfast. - acebutolol (SECTRAL) 200 mg capsule Take 1 capsule by mouth two times a day. - albuterol HFA (VENTOLIN HFA) 90 mcg/actuation inhaler Inhale 2 Puffs as instructed every 4 hours as needed for wheezing/shortness of breath. - azelastine 0.1% nasal spray Use 1 [place] in each nostril two times a day. - niacin (NIACIN) 500 mg tablet Take 500 mg by mouth daily with breakfast. - lecithin 1,000 mg chew Take 600 mg by mouth once daily. - ubidecarenone Q-10 (COENZYME Q-10) 10 mg cap Take by mouth twice daily. - VIT D3-FOLIC WXEU-Y2-A3-B12 ORAL Take by mouth. - GAMMA-AMINOBUTYRIC ACID, BULK, MISC - polyethylene glycol 3350 (MIRALAX ORAL) Take by mouth once daily. - glucosam/chond-msm1/C/ castro/bor ([id number]-EECKQ-GBJ COMPLEX ORAL) Take by mouth once daily. - magnesium glycinate (MAG GLYCINATE ORAL) Take by mouth once daily. 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 burgdorferi IgG and IgM p ebto (S)on 12-24-2024 B. burgdorferi IgG+IgM Qn (S) Negative Normal Negative [facility] Comment on above: Order Comment: Speci men Type: BLOOD SPECIMENOrdering Facility: [facility] Address: [address] [place] [address] Result Comment: Rece nt infection with B. burgdorferi sensu lato cannot be excluded if the specimen collected within four weeks after the onset of signs and symptoms or within six weeks after a known tick exposure. Clinical and epidemiological correlation is required. Performed By: #### 3 [id number] ####[facility] LABCLIA [id number] [place] [address] [place] CNOVon 12-24-2024 CNOV Office Visit (INTMWS ) URSULA L[address] ([id number]) 1950 F T Date Time Provider Department 12/24/24 9:20 AM EMMA SCHULTZ INTYaritzaWS During your visit today, we recorded the following information about you: Temperature Pulse Respiration Blood pressure 99 degrees 66/minute 16/minute 114/67 Weight 62 kg Emma Schultz MD 12/24/2024 9:56 AM Signed We discussed your tick bite and possible Lyme disease: - You have a target-shaped rash on your right lower back, which is concerning for early Lyme disease. - Start taking Doxycycline 100 mg twice daily for 10 days. You may extend this to 14 days if needed. This prescription has been sent to [facility] in [place]. - I ordered Lyme disease testing (early testing for symptoms within 30 days). - Monitor for any new symptoms such as fever, joint pain, or worsening fatigue. Let me know if these occur. We discussed the bite on your left thigh: - This bite is large, indurated (hardened), and painful. It may be a spider bite or another insect bite. - The antibiotics prescribed for the tick bite may also help with this lesion. - Monitor the area for any signs of worsening, such as increased redness, swelling, or drainage. We discussed your sleep study results: - Your sleep study showed significant respiratory events during REM sleep, with oxygen levels dropping to 83%. - I will send your sleep study results to Dr. South for further review and recommendations. - Based on your feedback, if a CPAP machine is recommended, you may prefer a mask rather than nasal pillows due to discomfort. Follow-up: - Please schedule a follow-up appointment with me in 2 weeks to review your progress and test results. - Continue monitoring your symptoms and let me know if anything worsens or new symptoms develop. Your prescriptions have been sent to [facility] in [place]. Please pick them up at your convenience. Emma Schultz MD 12/24/2024 10:11 AM Signed Reason for Visit Follow up HPI Mohini Lane is a 74-year-old female presenting with concerns about a tick bite and a possible spider bite. Mohini reports a tick bite on 12/13, which was removed by her using tweezers. Initially, the site was a small red dot, but it has since enlarged and developed a bullseye appearance. She also reports a second lesion on her buttock, which she suspects may be a spider bite. This lesion has been present for a while but has recently increased in size and become painful, with a hard center. She notes finding a brown spider in her bed recently but is unsure if it is related to the bite. 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 She reports feeling very tired lately, even before the tick bite. She also mentions a recent sleep study, which showed elimating most apnea and hypopneas with 10 cm titration, her AHI is 16 in REM sleep which she is not getting much of and is only a small percentage of her total sleep. arousals during the night. during the sleep study, a nasal CPAP machine was tried but she found it uncomfortable and is considering a different type of mask. Social History Tobacco Use Smoking status: Never Smokeless tobacco: Never Vaping Use Vaping status: Never Used Substance Use Topics Alcohol use: Yes Alcohol/week: 1.0 standard drink of alcohol Types: 1 Glasses of Wine (5oz) per week Comment: at dinner Drug use: Never Past medical history, appointments, medications, allergies reviewed. Pertinent Lab/Diagnostic Studies are reviewed and discussed today Current Outpatient Medications: CPAP/BIPAP/OTHER multivitamin tablet rosuvastatin (CRESTOR) 10 mg tablet SUMAtriptan (IMITREX) 20 mg/actuation nasal spray levothyroxine (SYNTHROID) 50 mcg tablet acebutolol (SECTRAL) 200 mg capsule albuterol HFA (VENTOLIN HFA) 90 mcg/actuation inhaler azelastine 0.1% nasal spray niacin (NIACIN) 500 mg tablet lecithin 1,000 mg chew ubidecarenone Q-10 (COENZYME Q-10) 10 mg cap GAMMA-AMINOBUTYRIC ACID, BULK, MISC polyethylene glycol 3350 (MIRALAX ORAL) glucosam/chond-msm1/C/ castro/bor ([id number]-IBIRC-VAQ COMPLEX ORAL) magnesium glycinate (MAG GLYCINATE ORAL) doxycycline monohydrate (MONODOX) 100 mg capsule omeprazole (PRILOSEC) 20 mg capsule VIT D3-FOLIC LYGJ-E1-V5-B12 ORAL Health Maintenance Hepatitis C Screening DTaP,Tdap,Td Vaccine(1 - Tdap) Pneumococcal Vaccine: 50+(2 of 2 - PCV) Advance Directive Discussion Covid-19 Vaccine( season)@ Review Of Systems Constitutional: (+) fatigue Skin: (+) rash, (+) skin pain Neurological: (-) weakness Physical Exam BP 114/67 Pulse 66 Temp 37.2 ?C (99 ?F) (Oral) Resp 16 Wt 62 kg (136 lb 9.6 oz) SpO2 100% BMI 24.20 kg/m? GENERAL: NAD, alert and oriented. SKIN: Erythematous target lesions (more content not included)... Normal [facility] CNPNon 12-21-2024 CNPN Telephone (HCAITC) URSULA LANE ([id number]) 1950 F CHT Date Time Provider Department 12/21/24 [facility] During your visit today, we recorded the following information about you: Kaitlynn Sunshine 12/21/2024 9:25 AM Signed [facility] received your PAP therapy order. At this time, the most recent sleep study one file does not meet the patients current insurance criteria. The insurance requires the following: A diagnostic sleep study with an AHI greater than 5 with a minimum of 10 events. The patient's most recent sleep study is showing an AHI of 4.5. Please note the RERA cannot be a factor in the calculation of the AHI. Thank you, [facility] [phone] fax Emma Schultz MD 12/21/2024 2:26 PM Signed She has a REM AHI of 16 and supine AHI of 4.5 See copy pasted noted and revert to me please Sleep history: The patient is a 74 year old female with obstructive sleep apnea. A polysomnogram on 12-03-24 showed an overall apnea-hypopnea index (AHI) of 4.5 , Supine AHI of 10.1, REM AHI of 16.6, and an oxygen saturation sai of 83%. The patient is not using CPAP at home. side sleeper. Past medical history: Allergic rhinitis, Anxiety, Chronic sinusitis, Coronary" Emma Valenzuela MD, Chitra, MD 12/24/2024 5:[address] Mcclure, Do you think this patient would benefit from pap therapy. She does have AHI 16 in Rem which is noted to be smaller part of her total sleep but she also has mixed apneas. The [facility] home DME company said she does not qualify and will not send a machine. I need some direction on next steps for her. Let me know if you see patients so I can send her to you. Emma Valenzuela MD, Chitra, MD 12/24/2024 5:15 PM Signed Please let ursula lane know that Dr Maynor mckeon, who read her sleep study noted that he will order her pap machine and is willing to see her. Please set her up to see him Consult for sleep medicine is placed in prior visit. RegardsEmma MD, Amanda, RN 12/24/2024 5:45 PM Signed Pt called and is notified of providers results and instructions. Pt voices understanding. Transferred to scheduled to set up appt with Sleep medicine. EUSEBIO Dinh Chitra, MD 12/25/2024 5:01 PM Signed Please let patient know that she should see Dr Mckeon for her sleep study follow up Regards, Emma Schultz MD Allergies As of Date: 12/21/2024 Noted Allergy Reaction BONIVA (IBANDRONATE) 08/21/2021 14 - Other: See Comments Comments: Was so down and out for 4 weeks she does not want the medication FOSAMAX (ALENDRONATE) 08/21/2021 14 - Other: See Comments Comments: She was down for a month after taking them . Just did not tolerate them at all [id number]-OOY-CAV REDUCTASE INHIBIT*08/21/2021 17 - Myalgia Comments: Restless legs. Date Reviewed: 12/11/2024 Reviewed by: Bree Theodore LPN - Fully Assessed Reason for Visit: PAP Therapy Follow Up [1285] Prescriptions as of 12/25/2024 - doxycycline monohydrate (MONODOX) 100 mg capsule Take 1 capsule by mouth two times a day for 14 days. - CPAP/BIPAP/OTHER Type .CPAPSettings into a note to see current settings/supplies/DME information. - multivitamin tablet Take 1 tablet by mouth once daily. - rosuvastatin (CRESTOR) 10 mg tablet Take 1 tablet by mouth once daily. - SUMAtriptan (IMITREX) 20 mg/actuation nasal spray Use 1 spray in the nose as needed. - omeprazole (PRILOSEC) 20 mg capsule Take 1 capsule by mouth every 12 hours. - levothyroxine (SYNTHROID) 50 mcg tablet Take 1 tablet by mouth daily before breakfast. - acebutolol (SECTRAL) 200 mg capsule Take 1 capsule by mouth two times a day. - albuterol HFA (VENTOLIN HFA) 90 mcg/actuation inhaler Inhale 2 Puffs as instructed every 4 hours as needed for wheezing/shortness of breath. - azelastine 0.1% nasal spray Use 1 [place] in each nostril two times a day. - niacin (NIACIN) 500 mg tablet Take 500 mg by mouth daily with breakfast. - lecithin 1,000 mg chew Take 600 mg by mouth once daily. - ubidecarenone Q-10 (COENZYME Q-10) 10 mg cap Take by mouth twice daily. - VIT D3-FOLIC CLSN-K2-I5-B12 ORAL Take by mouth. - GAMMA-AMINOBUTYRIC ACID, BULK, MISC - polyethylene glycol 3350 (MIRALAX ORAL) Take by mouth once daily. - glucosam/chond-msm1/C/ castro/bor ([id number] COMPLEX ORAL) Take by mouth once daily. - magnesium glycinate (MAG GLYCINATE ORAL) Take by mouth once daily. 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 Normal [facility] 12-20-2024 RONALDN Telephone (AMBER [place]) [address] ([id number]) 1950 F T Date Time Provider Department 12/20/24 KRISTY MCCLURE During your visit today, we recorded the following information about you: Sarah Fall MA 12/20/2024 8:41 AM Signed Patients sleep study is scanned into the chart. Thank you. Allergies As of Date: 12/20/2024 Noted Allergy Reaction BONIVA (IBANDRONATE) 08/21/2021 14 - Other: See Comments Comments: Was so down and out for 4 weeks she does not want the medication FOSAMAX (ALENDRONATE) 08/21/2021 14 - Other: See Comments Comments: She was down for a month after taking them . Just did not tolerate them at all [id number] REDUCTASE INHIBIT*08/21/2021 17 - Myalgia Comments: Restless legs. Date Reviewed: 12/11/2024 Reviewed by: Bree Theodore LPN - Fully Assessed Reason for Visit: Results [95] Prescriptions as of 12/20/2024 - CPAP/BIPAP/OTHER Type .CPAPSettings into a note to see current settings/supplies/DME information. - multivitamin tablet Take 1 tablet by mouth once daily. - rosuvastatin (CRESTOR) 10 mg tablet Take 1 tablet by mouth once daily. - SUMAtriptan (IMITREX) 20 mg/actuation nasal spray Use 1 spray in the nose as needed. - omeprazole (PRILOSEC) 20 mg capsule Take 1 capsule by mouth every 12 hours. - levothyroxine (SYNTHROID) 50 mcg tablet Take 1 tablet by mouth daily before breakfast. - acebutolol (SECTRAL) 200 mg capsule Take 1 capsule by mouth two times a day. - albuterol HFA (VENTOLIN HFA) 90 mcg/actuation inhaler Inhale 2 Puffs as instructed every 4 hours as needed for wheezing/shortness of breath. - azelastine 0.1% nasal spray Use 1 [place] in each nostril two times a day. - niacin (NIACIN) 500 mg tablet Take 500 mg by mouth daily with breakfast. - lecithin 1,000 mg chew Take 600 mg by mouth once daily. - ubidecarenone Q-10 (COENZYME Q-10) 10 mg cap Take by mouth twice daily. - VIT D3-FOLIC XVON-R3-T6-B12 ORAL Take by mouth. - GAMMA-AMINOBUTYRIC ACID, BULK, MISC - polyethylene glycol 3350 (MIRALAX ORAL) Take by mouth once daily. - glucosam/chond-msm1/C/ castro/bor (KMJCOLVFXFT-ELKHA-OLF COMPLEX ORAL) Take by mouth once daily. - magnesium glycinate (MAG GLYCINATE ORAL) Take by mouth once daily. 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] 06/10/2022 Degenerative disc disease, cervical [M50.30] 01/03/2023 Cervical spondylosis [M47.812] 01/03/2023 Acute pain of right shoulder [M25.511] 11/15/2023 RUE weakness [R29.898] 11/15/2023 Encounter Status:Closed by SARAH [facility]ALL [facility] Office Visit (PODIWS ) [address]UL[address] ([id number]) 1950 F [facility] Date Time Provider Department 12/11/24 9:15 AM ALIZE YUAN PODIWS During your visit today, we recorded the following information about you: Bree Theodore LPN 12/11/2024 9:30 AM Signed AMB ROOMING INTAKE FLOWSHEET DATA Patient presents with: Left Foot - New, Numbness Right Foot - New, Numbness Patient states numbness started about 1 month ago . She describes it as a vibration feeling. Alize Yuan 12/11/2024 9:18 AM Signed - Have a right foot x-ray today; the radiologist will review the images. - Continue using your current custom shoe inserts in all of your shoes (except sandals). - A nerve conduction study of the sural nerve in your right foot has been ordered to evaluate the numbness Alize Yuan 12/11/2024 9:30 AM Signed Consultation requested by Dr. Schultz for an opinion regarding numbness in foot. My final recommendations will be communicated back to the requesting physician by way of shared Medical record or letter to requesting physician via US mail. Subjective Mohini Lane is a 74-year-old female presenting for evaluation of a buzzing sensation in the right foot. Right Foot Paresthesia: - Intermittent "buzzing" sensation in the right foot x1.5 months. - Sensation localized to the lateral aspect of the foot. - Occurs at various times, including day and night, and is not associated with specific activities or footwear. - Describes sensation as similar to a phone vibrating; denies associated pain. - No known precipitating factors; sensation begins and stops spontaneously. - Denies known trauma or injury to the back, hip, or foot. - History of sciatica, predominantly on the right side, but not currently experiencing symptoms. - No recent changes in exercise regimen; engages in gardening. - Occasionally experiences sharp pain in the foot when taking a step, lasting a few days; denies twisting the ankle. Musculoskeletal: (+) intermittent sharp right foot pain Neurological: (+) right foot buzzing sensation, (-) sciatica pain PAST MEDICAL HISTORY Diagnosis Date Disorder of thyroid Irregular heart beat Migraine, intractable Sleep apnea Current Outpatient Medications Medication Sig Dispense Refill multivitamin tablet Take 1 tablet by mouth once daily. rosuvastatin (CRESTOR) 10 mg tablet Take 1 tablet by mouth once daily. 90 tablet 3 SUMAtriptan (IMITREX) 20 mg/actuation nasal spray Use 1 spray in the nose as needed. 12 each 3 omeprazole (PRILOSEC) 20 mg capsule Take 1 capsule by mouth every 12 hours. (Patient not taking: Reported on 11/27/2024) 45 capsule 0 levothyroxine (SYNTHROID) 50 mcg tablet Take 1 tablet by mouth daily before breakfast. 90 tablet 3 acebutolol (SECTRAL) 200 mg capsule Take 1 capsule by mouth two times a day. 180 capsule 3 albuterol HFA (VENTOLIN HFA) 90 mcg/actuation inhaler Inhale 2 Puffs as instructed every 4 hours as needed for wheezing/shortness of breath. 1 Each 1 azelastine 0.1% nasal spray Use 1 [place] in each nostril two times a day. 30 mL 5 niacin (NIACIN) 500 mg tablet Take 500 mg by mouth daily with breakfast. lecithin 1,000 mg chew Take 600 mg by mouth once daily. ubidecarenone Q-10 (COENZYME Q-10) 10 mg cap Take by mouth twice daily. VIT D3-FOLIC MAYY-X3-R6-B12 ORAL Take by mouth. (Patient not taking: Reported on 10/26/2024) GAMMA-AMINOBUTYRIC ACID, BULK, MISC polyethylene glycol 3350 (MIRALAX ORAL) Take by mouth once daily. glucosam/chond-msm1/C/ castro/bor ([id number] COMPLEX ORAL) Take by mouth once daily. magnesium glycinate (MAG GLYCINATE ORAL) Take by mouth once daily. No current facility-administered medications for this visit. No family history on file. Objective There were no vitals taken for this visit. - Cardiovascular: Dorsalis pedis and posterior tibial pulses palpable bilaterally; capillary refill <5 seconds; skin temperature warm to cool bilaterally. - Musculoskeletal: - Right Foot: - Mild discomfort along the fifth metatarsal shaft. - Manual muscle testin/5 for plantar flexion, dorsiflexion, inversion, and eversion. - Neurological: - Slightly diminished vibratory sensation bilaterally. Assessment AND Plan 1. Numbness and tingling of foot (R20.0) 2. Right foot pain (M79.671) - Intermittent buzzing sensation in the right foot for approximately 1.5 months, not associated with specific activities or footwear. No significant pain reported, but mild discomfort noted along the right fifth metatarsal shaft on examination. - Physical examination reveals slightly diminished vibratory sensation bilaterally, with intact dorsalis pedis and posterior tibial pulses. - Ordered X-ray of the right foot to rule out stress fracture. - Discussed potential nerve involvement; ordered nerve conduction study to evaluate candace (more content not included)... Normal [facility] PAP TITRATION PSG (CPAP, BIP AP, ASV)on 12-11-2024 PAP TITRATION PSG (CPAP, BIPAP, ASV) [facility] [place] ? [address] [place] [address] PAP Titration Study Report Name: [address] Date of Study: 12/11/2024 [facility]#: [id number] Age: 74 (: 1950) ESS: 11/24 Neck Circ. (in): 13.5 Height (in): 63 Weight (lbs): 134 BMI: 0.0 Referring Provider: EMMA SCHULTZ MD Mailcode: Sleep history: The patient is a 74 year old female with obstructive sleep apnea. A polysomnogram on 12-03-24 showed an overall apnea-hypopnea index (AHI) of 4.5 , Supine AHI of 10.1, REM AHI of 16.6, and an oxygen saturation sai of 83%. The patient is not using CPAP at home. side sleeper. Past medical history: Allergic rhinitis, Anxiety, Chronic sinusitis, Coronary artery disease, Depression, Deviated nasal septum, GERD, Chronic headache, Hyperlipidemia, Hypothyroidism Medications: Acebutolol, Levothyroxine, Rosuvastatin, Sumatriptan, Glucosamine, Mag glycinate, Miralax, Centrum, Alpha lipooic acid, Niacin Sleep procedure: PSG w/CPAP or Bilevel PAP 4 or > josefina PC ([id number]) Procedure: The study was attended continuously by a electroencephalogram technologist. The monitored parameters included: left (E1-M2) and right (E2-M1) EOG, frontal (F3-M2 and F4-M1), central (C3-M2 and C4-M1) and occipital (O1-M2 and O2-M1) EEG, mental and submental EMG, left and right anterior tibialis EMG, left and right flexor digitorum superficialis EMG, single ECG waveform, snoring, continuous airflow via PAP interface, chest and abdominal effort, oxygen saturation, and body position via video monitoring. Hypopnea definition: The peak signal excursions drop by >= 30% of pre-event baseline using nasal pressure (diagnostic study), PAP device flow (titration study) or an alternative hypopnea sensor (diagnostic study). The duration of the >= 30% drop in signal excursion is >= 10 seconds. There is a greater than or equal to 4% oxygen desaturation from pre-event baseline. Respiratory Effort Related Arousal (RERA) definition: 10 seconds characterized by increasing respiratory effort or by flattening of the nasal pressure or PAP flow waveform leading to arousal from sleep when the sequence of breaths does not meet criteria for an apnea or hypopnea. Respiratory Disturbance Index (RDI) definition: RDI = (#apneas + #hypopneas + #RERAs) x 60 / TST. If AHI is 0.0, then RDI = RERA index. SLEEP ARCHITECTURE: The study started at 21:08:32 and ended at 03:09:39. Total sleep time (TST) was 278 minutes resulting in a sleep efficiency of 77.1% (total recording time (TRT) = 361 m). There were 28 awakenings with a total time awake after sleep onset of 74.5 minutes. The sleep latency was 8.0 minutes and the REM latency was 67 minutes. The patient spent 26.6% of sleep time in the supine position. The sleep stage percentages were 9.2% stage N1, 49.2% stage N2, 35.2% stage N3 and 6.5% REM sleep. There were 62 arousals, resulting in an arousal index of 13.4. There were 146 stage shifts. POSITIVE AIRWAY PRESSURE DATA: CPAP was initiated at 7 cmH2O. Snoring and the majority of Respiratory Events were eliminated at a CPAP setting of 10 cmH2O. There were 34 respiratory events consisting of 23 apneas [2 obstructive (9%), 12 mixed (52%), and 9 central (39%)], 11 hypopneas and 0 RERAs. The mean oxygen saturation during the study was 96%, with a minimum oxygen saturation of 90%. The patient spent 0.0% (0.0 min) of sleep time with an oxygen saturation below 90% and 0.0% (0.0 min) of sleep time with an oxygen saturation at or below 88%. Zi-Louie/Periodic Breathing was not present. Supplemental oxygen was not administered. A small ResMed AirFit N10 for Her nasal mask without chin strap was used. The mask leak at the most effective pressure was within normal limits. PAP SUMMARY: By Pressure: PAP BUR O2 TST %Sup SupAHI REM RAHI CRISTAL AHI ArIdx Sai AvgSaO2 07 0 0.0 80.0m 6% 96.0 7.0m 0.0 2.3 6.0 3.8 91% 96% 08 0 0.0 56.0m 25% 51.4 0.0m -- 1.1 15.0 12.9 90% 96% 09 0 0.0 121.0m 45% 9.8 7.5m 0.0 2.0 5.5 6.9 91% 96% 10 0 0.0 21.5m 0% -- 3.5m 17.1 2.8 2.8 2.8 92% 97% PAP BUR O2 TST %Sup SupRDI REM RRDI HI RDI ArIdx Sai AvgSaO2 07 0 0.0 80.0m 6% 96.0 7.0m 0.0 1.5 6.0 3.8 91% 96% 08 0 0.0 56.0m 25% 51.4 0.0m -- 7.5 15.0 12.9 90% 96% 09 0 0.0 121.0m 45% 9.8 7.5m 0.0 1.0 5.5 6.9 91% 96% 10 0 0.0 21.5m 0% -- 3.5m 17.1 0.0 2.8 2.8 92% 97% By Time: PAP O2 TST %Sup SupAHI REM RAHI CRISTAL HI AHI ArIdx Nadr AvgSaO2 07 0.0 80.0m 6% 96.0 7.0m 0.0 2.3 1.5 6.0 3.8 91% 96% 08 0.0 56.0m 25% 51.4 0.0m -- 1.1 7.5 15.0 12.9 90% 96% 09 0.0 121.0m 45% 9.8 7.5m 0.0 2.0 1.0 5.5 6.9 91% 96% 10 0.0 21.5m 0% -- 3.5m 17.1 2.8 0.0 2.8 2.8 92% 97% MOVEMENT DATA: No abnormal behavior was noted. There were 6 periodic limb movements during sleep, resulting in a PLM-index of 1.3. Of these, 2 movements were associated with arousals, resulting in a PLM-arousal index of 0.4. ECG DATA: The average heart rate during slee (more content not included)... [facility] [place] [address] PAP Titration Study Report Name: [address] Date of Study: 12/11/2024 [facility]#: [id number] Age: 74 (: 1950) ESS: 11/24 Neck Circ. (in): 13.5 Height (in): 63 Weight (lbs): 134 BMI: 0.0 Referring Provider: EMMA SCHULTZ MD Mailcode: Sleep history: The patient is a 74 year old female with obstructive sleep apnea. A polysomnogram on 12-03-24 showed an overall apnea-hypopnea index (AHI) of 4.5 , Supine AHI of 10.1, REM AHI of 16.6, and an oxygen saturation sai of 83%. The patient is not using CPAP at home. side sleeper. Past medical history: Allergic rhinitis, Anxiety, Chronic sinusitis, Coronary artery disease, Depression, Deviated nasal septum, GERD, Chronic headache, Hyperlipidemia, Hypothyroidism Medications: Acebutolol, Levothyroxine, Rosuvastatin, Sumatriptan, Glucosamine, Mag glycinate, Miralax, Centrum, Alpha lipooic acid, Niacin Sleep procedure: PSG w/CPAP or Bilevel PAP 4 or > josefina PC ([id number]) Procedure: The study was attended continuously by a electroencephalogram technologist. The monitored parameters included: left (E1-M2) and right (E2-M1) EOG, frontal (F3-M2 & F4-M1), central (C3-M2 & C4-M1) and occipital (O1-M2 & O2-M1) EEG, mental and submental EMG, left and right anterior tibialis EMG, left and right flexor digitorum superficialis EMG, single ECG waveform, snoring, continuous airflow via PAP interface, chest and abdominal effort, oxygen saturation, and body position via video monitoring. Hypopnea definition: The peak signal excursions drop by >= 30% of pre-event baseline using nasal pressure (diagnostic study), PAP device flow (titration study) or an alternative hypopnea sensor (diagnostic study). The duration of the >= 30% drop in signal excursion is >= 10 seconds. There is a greater than or equal to 4% oxygen desaturation from pre-event baseline. Respiratory Effort Related Arousal (RERA) definition: 10 seconds characterized by increasing respiratory effort or by flattening of the nasal pressure or PAP flow waveform leading to arousal from sleep when the sequence of breaths does not meet criteria for an apnea or hypopnea. Respiratory Disturbance Index (RDI) definition: RDI = (#apneas + #hypopneas + #RERAs) x 60 / TST. If AHI is 0.0, then RDI = RERA index. SLEEP ARCHITECTURE: The study started at 21:08:32 and ended at 03:09:39. Total sleep time (TST) was 278 minutes resulting in a sleep efficiency of 77.1% (total recording time (TRT) = 361 m). There were 28 awakenings with a total time awake after sleep onset of 74.5 minutes. The sleep latency was 8.0 minutes and the REM latency was 67 minutes. The patient spent 26.6% of sleep time in the supine position. The sleep stage percentages were 9.2% stage N1, 49.2% stage N2, 35.2% stage N3 and 6.5% REM sleep. There were 62 arousals, resulting in an arousal index of 13.4. There were 146 stage shifts. POSITIVE AIRWAY PRESSURE DATA: CPAP was initiated at 7 cmH2O. Snoring and the majority of Respiratory Events were eliminated at a CPAP setting of 10 cmH2O. There were 34 respiratory events consisting of 23 apneas [2 obstructive (9%), 12 mixed (52%), and 9 central (39%)], 11 hypopneas and 0 RERAs. The mean oxygen saturation during the study was 96%, with a minimum oxygen saturation of 90%. The patient spent 0.0% (0.0 min) of sleep time with an oxygen saturation below 90% and 0.0% (0.0 min) of sleep time with an oxygen saturation at or below 88%. Zi-Louie/Periodic Breathing was not present. Supplemental oxygen was not administered. A small ResMed AirFit N10 for Her nasal mask without chin strap was used. The mask leak at the most effective pressure was within normal limits. PAP SUMMARY: By Pressure: PAP BUR O2 TST %Sup SupAHI REM RAHI CRISTAL AHI ArIdx Sai AvgSaO2 07 0 0.0 80.0m 6% 96.0 7.0m 0.0 2.3 6.0 3.8 91% 96% 08 0 0.0 56.0m 25% 51.4 0.0m -- 1.1 15.0 12.9 90% 96% 09 0 0.0 121.0m 45% 9.8 7.5m 0.0 2.0 5.5 6.9 91% 96% 10 0 0.0 21.5m 0% -- 3.5m 17.1 2.8 2.8 2.8 92% 97% PAP BUR O2 TST %Sup SupRDI REM RRDI HI RDI ArIdx Sai AvgSaO2 07 0 0.0 80.0m 6% 96.0 7.0m 0.0 1.5 6.0 3.8 91% 96% 08 0 0.0 56.0m 25% 51.4 0.0m -- 7.5 15.0 12.9 90% 96% 09 0 0.0 121.0m 45% 9.8 7.5m 0.0 1.0 5.5 6.9 91% 96% 10 0 0.0 21.5m 0% -- 3.5m 17.1 0.0 2.8 2.8 92% 97% By Time: PAP O2 TST %Sup SupAHI REM RAHI CRISTAL HI AHI ArIdx Nadr AvgSaO2 07 0.0 80.0m 6% 96.0 7.0m 0.0 2.3 1.5 6.0 3.8 91% 96% 08 0.0 56.0m 25% 51.4 0.0m -- 1.1 7.5 15.0 12.9 90% 96% 09 0.0 121.0m 45% 9.8 7.5m 0.0 2.0 1.0 5.5 6.9 91% 96% 10 0.0 21.5m 0% -- 3.5m 17.1 2.8 0.0 2.8 2.8 92% 97% MOVEMENT DATA: No (more content not included)... [facility] 3V AP/LAT/OBL RTon 0 12-11-2024 XR FOOT 3V AP/LAT/OBL RT * * *Final Report* * * DATE OF EXAM: Dec 11 2024 9:45AM [id number] - XR FOOT 3V AP/LAT/OBL RT / PROCEDURE REASON: multiple diagnoses * * * * Physician Interpretation * * * * EXAMINATION / TECHNIQUE: XR FOOT 3V AP/LAT/OBL RT HISTORY: tingling/numbness sensation in the 5th MT for 1.5 months no inj Numbness and tingling of foot Numbness and tingling of foot Right foot pain COMPARISON: None RESULT: No acute fracture or osseous malalignment is identified. The joint spaces are preserved. Small calcaneal enthesophytes. No osseous erosion. IMPRESSION: No acute bony abnormality. Custody Officer: PSCB Transcribe Date/Time: Dec 16 2024 6:56P Dictated by : MIKEY CARRINGTON MD This examination was interpreted and the report reviewed and electronically signed by: MIKEY CARRINGTON MD on Dec 16 2024 6:56PM EST [id number] Normal [facility] BD DXA - AXIAL SKELETONon BD DXA - AXIAL SKELETON * * *Final Report* * * DATE OF EXAM: Dec 07 2024 9:48AM [facility] [id number] - BD DXA - AXIAL SKELETON / PROCEDURE REASON: Osteoporosis, unspecified osteoporosis type, unspecified pathological fracture p * * * * Physician Interpretation * * * * EXAMINATION: DXA BONE DENSITOMETRY BD DXA - AXIAL SKELETON, BD DXA TRABECLR BONE SCORE (TBS) PATIENT DEMOGRAPHICS: Age: 74 years, Gender: Female SCANNER INFORMATION: DXA Model: [employer] - FOBO C 16440 Date Scanned: 12/07/2024 9:48 AM CLINICAL HISTORY: DIAGNOSTIC Osteoporosis, unspecified osteoporosis type, unspecified pathological fracture presence . RISK FACTORS FOR OSTEOPOROSIS AND ASSOCIATED FRACTURES REPORTED BY THIS PATIENT: Please refer to Bone Health Questionnaire in the EMR CURRENT THERAPY: Please refer to Bone Health Questionnaire in the EMR TECHNICAL LIMITATIONS: RESULTS: Lumbar spine (L1, L2, L3, L4): 0.649 g/cm2, T-score -3.6 , Z-score -1.3 Right Femoral Neck: 0.628 g/cm2, T-score -2.0 , Z-score 0.0 Right Total Hip: 0.743 g/cm2, T-score -1.6 , Z-score 0.1 Left Femoral Neck: 0.641 g/cm2, T-score -1.9 , Z-score 0.2 Left Total Hip: 0.834 g/cm2, T-score -0.9 , Z-score 0.8 No comparison data - the patient has not had a previous bone density in the [facility] or the previous bone density was performed on a different DXA machine (new, updated model or different location) within the [facility]. VERTEBRAL FRACTURE ASSESSMENT Not performed. TRABECULAR BONE ASSESSMENT TBS score: 1.285 Bone micro-architecture: Partially degraded (1.231 - 1.310) IMPRESSION: THE LOWEST T-SCORE IS -3.6 IN THE SPINE 1) DIAGNOSIS (based on BMD alone): OSTEOPOROSIS Caution: Medical conditions other than osteoporosis may cause low bone density, such as osteomalacia or renal osteodystrophy. Clinical correlation is necessary. 2) FRACTURE RISK (Based on TBS adjusted FRAX): 10-year absolute fracture risk: - major osteoporotic fracture = 18 % - hip fracture = 4.3 % - A diagnosis of Osteoporosis, a 10 year probability of hip fracture greater than or equal to 3% or a 10 year probability of any major osteoporosis-related fracture greater than or equal to 20% should be considered for treatment. - DXA scanner generated FRAX calculations may slightly differ from online FRAX calculations due to differences in software versions. - All recommendations and calculations are to be considered as guidelines and should not replace sound clinical judgement - Caution: Fracture risk may be increased independent of BMD in patients with corticosteroid use, age greater than 65 years, or a history of prior fragility fracture. RECOMMENDATIONS: Follow-up in 2 years or as clinically indicated. Patients that are taking corticosteroids, are transplant recipients or have hyperparathyroidism should have annual follow-up. Follow-up scans should always be done on the same machine for accurate comparison. FOR MORE INFORMATION ABOUT DIAGNOSIS AND TREATMENT: [facility] for Osteoporosis and Metabolic Bone Disease:? www.ccf.org/arthritis/ osteo National Osteoporosis Foundation:? www.nof.org International Society of Clinical Densitometry www.iscd.org Custody Officer: CHRISTIANO Transcribe Date/Time: Dec 09 2024 7:43P Dictated by : LUL CLINE MD This examination was interpreted and the report reviewed and electronically signed by: LUL CLINE MD on Dec 09 2024 7:44PM EST [id number] Normal [facility] BD DXA TRABECLR BONE SCORE ( TBS)on 12-07-2024 BD DXA TRABECLR BONE SCORE (TBS) * * *Final Report* * * DATE OF EXAM: Dec 07 2024 9:48AM [id number] - BD DXA TRABECLR BONE SCORE (TBS) / PROCEDURE REASON: Osteoporosis, unspecified osteoporosis type, unspecified pathological fracture p * * * * Physician Interpretation * * * * EXAMINATION: DXA BONE DENSITOMETRY BD DXA - AXIAL SKELETON, BD DXA TRABECLR BONE SCORE (TBS) PATIENT DEMOGRAPHICS: Age: 74 years, Gender: Female SCANNER INFORMATION: DXA Model: [employer] - FOBO C [id number] Date Scanned: 12/07/2024 9:48 AM CLINICAL HISTORY: DIAGNOSTIC Osteoporosis, unspecified osteoporosis type, unspecified pathological fracture presence . RISK FACTORS FOR OSTEOPOROSIS AND ASSOCIATED FRACTURES REPORTED BY THIS PATIENT: Please refer to Bone Health Questionnaire in the EMR CURRENT THERAPY: Please refer to Bone Health Questionnaire in the EMR TECHNICAL LIMITATIONS: RESULTS: Lumbar spine (L1, L2, L3, L4): 0.649 g/cm2, T-score -3.6 , Z-score -1.3 Right Femoral Neck: 0.628 g/cm2, T-score -2.0 , Z-score 0.0 Right Total Hip: 0.743 g/cm2, T-score -1.6 , Z-score 0.1 Left Femoral Neck: 0.641 g/cm2, T-score -1.9 , Z-score 0.2 Left Total Hip: 0.834 g/cm2, T-score -0.9 , Z-score 0.8 No comparison data - the patient has not had a previous bone density in the [facility] or the previous bone density was performed on a different DXA machine (new, updated model or different location) within the [facility]. VERTEBRAL FRACTURE ASSESSMENT Not performed. TRABECULAR BONE ASSESSMENT TBS score: 1.285 Bone micro-architecture: Partially degraded (1.231 - 1.310) IMPRESSION: THE LOWEST T-SCORE IS -3.6 IN THE SPINE 1) DIAGNOSIS (based on BMD alone): OSTEOPOROSIS Caution: Medical conditions other than osteoporosis may cause low bone density, such as osteomalacia or renal osteodystrophy. Clinical correlation is necessary. 2) FRACTURE RISK (Based on TBS adjusted FRAX): 10-year absolute fracture risk: - major osteoporotic fracture = 18 % - hip fracture = 4.3 % - A diagnosis of Osteoporosis, a 10 year probability of hip fracture greater than or equal to 3% or a 10 year probability of any major osteoporosis-related fracture greater than or equal to 20% should be considered for treatment. - DXA scanner generated FRAX calculations may slightly differ from online FRAX calculations due to differences in software versions. - All recommendations and calculations are to be considered as guidelines and should not replace sound clinical judgement - Caution: Fracture risk may be increased independent of BMD in patients with corticosteroid use, age greater than 65 years, or a history of prior fragility fracture. RECOMMENDATIONS: Follow-up in 2 years or as clinically indicated. Patients that are taking corticosteroids, are transplant recipients or have hyperparathyroidism should have annual follow-up. Follow-up scans should always be done on the same machine for accurate comparison. FOR MORE INFORMATION ABOUT DIAGNOSIS AND TREATMENT: [facility] for Osteoporosis and Metabolic Bone Disease:? www.ccf.org/arthritis/ osteo National Osteoporosis Foundation:? www.nof.org International Society of Clinical Densitometry www.iscd.org Custody Officer: CHRISTIANO Transcribe Date/Time: Dec 09 2024 7:43P Dictated by : LUL CLINE MD This examination was interpreted and the report reviewed and electronically signed by: LUL CLINE MD on Dec 09 2024 7:44PM EST [id number] -3.6 Normal [facility] [address] ([id number]) 1950 F T Date Time Provider Department 12/06/24 KRISTY MCCLURE During your visit today, we recorded the following information about you: Sarah Fall MA 12/06/2024 8:04 AM Signed Patients sleep study results are scanned into the chart. Thank you. Allergies As of Date: 12/06/2024 Noted Allergy Reaction BONIVA (IBANDRONATE) 08/21/2021 14 - Other: See Comments Comments: Was so down and out for 4 weeks she does not want the medication FOSAMAX (ALENDRONATE) 08/21/2021 14 - Other: See Comments Comments: She was down for a month after taking them . Just did not tolerate them at all [id number] REDUCTASE INHIBIT*08/21/2021 17 - Myalgia Comments: Restless legs. Date Reviewed: 11/27/2024 Reviewed by: Jae Odonnell LPN - Fully Assessed Reason for Visit: Results [95] Prescriptions as of 12/06/2024 - multivitamin tablet Take 1 tablet by mouth once daily. - rosuvastatin (CRESTOR) 10 mg tablet Take 1 tablet by mouth once daily. - SUMAtriptan (IMITREX) 20 mg/actuation nasal spray Use 1 spray in the nose as needed. - omeprazole (PRILOSEC) 20 mg capsule Take 1 capsule by mouth every 12 hours. - levothyroxine (SYNTHROID) 50 mcg tablet Take 1 tablet by mouth daily before breakfast. - acebutolol (SECTRAL) 200 mg capsule Take 1 capsule by mouth two times a day. - albuterol HFA (VENTOLIN HFA) 90 mcg/actuation inhaler Inhale 2 Puffs as instructed every 4 hours as needed for wheezing/shortness of breath. - azelastine 0.1% nasal spray Use 1 [place] in each nostril two times a day. - niacin (NIACIN) 500 mg tablet Take 500 mg by mouth daily with breakfast. - lecithin 1,000 mg chew Take 600 mg by mouth once daily. - ubidecarenone Q-10 (COENZYME Q-10) 10 mg cap Take by mouth twice daily. - VIT D3-FOLIC [id number]-R3-A8-B12 ORAL Take by mouth. - GAMMA-AMINOBUTYRIC ACID, BULK, MISC - polyethylene glycol 3350 (MIRALAX ORAL) Take by mouth once daily. - glucosam/chond-msm1/C/ castro/bor (MCHKDUPSBGK-WQFOZ-NCF COMPLEX ORAL) Take by mouth once daily. - magnesium glycinate (MAG GLYCINATE ORAL) Take by mouth once daily. 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] 06/10/2022 Degenerative disc disease, cervical [M50.30] 01/03/2023 Cervical spondylosis [M47.812] 01/03/2023 Acute pain of right shoulder [M25.511] 11/15/2023 RUE weakness [R29.898] 11/15/2023 Encounter Status:Closed by SARAH FALL on 12/06/24 [facility] CNPN Telephone (INTMWS) YOURSULA ([id number]) 1950 F CHT Date Time Provider Department 12/06/24 EMMA SCHULTZ INTMWS During your visit today, we recorded the following information about you: Emma Schultz MD 12/06/2024 12:11 PM Signed Please let patient know that she has sleep apnea and was recommended to have a pap titration which have ordered Please help her with scheduling. Regards, Essence Prasad MD, MA 12/06/2024 3:35 PM Signed Patient active MyChart. Patient notified via Portr message. Essence Cartwright MA Allergies As of Date: 12/06/2024 Noted Allergy Reaction BONIVA (IBANDRONATE) 08/21/2021 14 - Other: See Comments Comments: Was so down and out for 4 weeks she does not want the medication FOSAMAX (ALENDRONATE) 08/21/2021 14 - Other: See Comments Comments: She was down for a month after taking them . Just did not tolerate them at all [id number] REDUCTASE INHIBIT*08/21/2021 17 - Myalgia Comments: Restless legs. Date Reviewed: 11/27/2024 Reviewed by: Jae Odonnell LPN - Fully Assessed Primary Visit Diagnosis:Sleep apnea, unspecified type [G47.30] Order(s):PAP TITRATION PSG (CPAP, BIPAP, ASV) [3512304] Order #: [id number] FUTURE CONSULT TO SLEEP MEDICINE - ADULT [4470461] Order #: [id number]: 1 FUTURE Prescriptions as of 12/06/2024 - multivitamin tablet Take 1 tablet by mouth once daily. - rosuvastatin (CRESTOR) 10 mg tablet Take 1 tablet by mouth once daily. - SUMAtriptan (IMITREX) 20 mg/actuation nasal spray Use 1 spray in the nose as needed. - omeprazole (PRILOSEC) 20 mg capsule Take 1 capsule by mouth every 12 hours. - levothyroxine (SYNTHROID) 50 mcg tablet Take 1 tablet by mouth daily before breakfast. - acebutolol (SECTRAL) 200 mg capsule Take 1 capsule by mouth two times a day. - albuterol HFA (VENTOLIN HFA) 90 mcg/actuation inhaler Inhale 2 Puffs as instructed every 4 hours as needed for wheezing/shortness of breath. - azelastine 0.1% nasal spray Use 1 [place] in each nostril two times a day. - niacin (NIACIN) 500 mg tablet Take 500 mg by mouth daily with breakfast. - lecithin 1,000 mg chew Take 600 mg by mouth once daily. - ubidecarenone Q-10 (COENZYME Q-10) 10 mg cap Take by mouth twice daily. - VIT D3-FOLIC TYGZ-G2-U9-B12 ORAL Take by mouth. - GAMMA-AMINOBUTYRIC ACID, BULK, MISC - polyethylene glycol 3350 (MIRALAX ORAL) Take by mouth once daily. - glucosam/chond-msm1/C/ castro/bor (WOHTBNKRTVS-FUZBI-ERA COMPLEX ORAL) Take by mouth once daily. - magnesium glycinate (MAG GLYCINATE ORAL) Take by mouth once daily. 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 (in): 13.5 Height (in): 63.0 Weight (lbs): 134.0 BMI: 23.7 Referring Provider: EMMA SCHULTZ MD Mailcode: Sleep history: The patient is a 74 year old female with a history of witnessed apneas, waking up with dry mouth or sore throat, nocturnal leg kicking, an urge to move the legs, excessive daytime sleepiness, fatigue, and teeth grinding. side sleeper. Pertinent past medical history: Allergic rhinitis, Anxiety, Chronic sinusitis, Coronary artery disease, Depression, Deviated nasal septum, GERD, Chronic headache, Hyperlipidemia, Hypothyroidism Medications: Acebutolol,Levothyroxi ne,Rosuvastin, Sumatriptan, Glucosamine, Mag glycinate, MiraLAX, Centrum, Alpha lipoic acid,Niacin, Caq 10 Sleep procedure: PSG 4 or more [facility] ([id number]) Procedure: The study was attended continuously by a electroencephalogram technologist. The monitored parameters included: left (E1-M2) and right (E2-M1) EOG, frontal (F3-M2 & F4-M1), central (C3-M2 & C4-M1) and occipital (O1-M2 & O2-M1) EEG, mental and submental EMG, left and right anterior tibialis EMG, left and right flexor digitorum superficialis EMG, single ECG waveform, snoring, continuous airflow with thermistor, nasal pressure transducer, chest and abdominal effort, oxygen saturation, and body position via video monitoring. Hypopnea definition: The peak signal excursions drop by >= 30% of pre-event baseline using nasal pressure (diagnostic study), PAP device flow (titration study) or an alternative hypopnea sensor (diagnostic study). The duration of the >= 30% drop in signal excursion is >= 10 seconds. There is a greater than or equal to 4% oxygen desaturation from pre-event baseline. Respiratory Effort Related Arousal (RERA) definition: 10 seconds characterized by increasing respiratory effort or by flattening of the nasal pressure or PAP flow waveform leading to arousal from sleep when the sequence of breaths does not meet criteria for an apnea or hypopnea. Respiratory Disturbance Index (RDI) definition: RDI = (#apneas + #hypopneas + #RERAs) x 60 / TST. If AHI is 0.0, then RDI = RERA index. SLEEP ARCHITECTURE: The study started at 21:07:10 and ended at 04:23:42. Total sleep time (TST) was 281 minutes resulting in a sleep efficiency of 64.5% (total recording time (TRT) = 436 m). There were 18 awakenings with a total time awake after sleep onset of 81.0 minutes. The sleep latency was 74.0 minutes and the REM latency was 74 minutes. The patient spent 42.1% of sleep time in the supine position. The sleep stage percentages were 4.1% stage N1, 56.1% stage N2, 19.2% stage N3 and 20.6% REM sleep. There were 1 arousals, resulting in an arousal index of 0.2. There were 83 stage shifts. RESPIRATORY DATA: Moderate/Severe Snoring was noted. There were 21 respiratory events consisting of 11 apneas [10 obstructive (90.9%), 0 mixed (0.0%), and 1 central (9.1%)], 10 hypopneas and 0 RERAs. The apnea-hypopnea index (AHI) was 4.5 and the central-apnea index (CRISTAL) was 0.2. The respiratory effort related arousal (RERA) index was 0.0. The respiratory disturbance index (RDI) was 4.5. The mean oxygen saturation during the study was 94.0%, with a minimum oxygen saturation of 83.0%. The patient spent 1.4% (4.0 min) of sleep time with an oxygen saturation below 90% and 0.8% (2.3 min) of sleep time with an oxygen saturation at or below 88%. Zi-Louie/Periodic Breathing was not present. Supplemental oxygen was not administered. REM-Time REM AHI NREM-Time NREM AHI Total-Time Total RDI Total AHI Supine 50.5 m 16.6 68.0 m 5.3 118.5 m 10.1 10.1 Off-Supine 7.5 m 8.0 155.5 m 0.0 163.0 m 0.4 0.4 Total 58.0 m 15.5 223.5 m 1.6 281.5 m 4.5 4.5 MOVEMENT DATA: No abnormal behavior was noted. There were 0 periodic limb movements during sleep, resulting in a PLM-index of 0.0. Of these, 0 movements were associated with arousals, resulting in a PLM-arousal index of 0.0. ECG DATA: The average heart rate during sleep was 65 beats per minute, with a range of 59 to 83. During wake, the heart rate ranged from 60 to 85 beats per minute. Sinus bradycardia, but no arrhythmias were noted. OTHER NOTABLE FINDINGS: none. ICSD DIAGNOSIS: Obstructive Sleep Apnea Syndrome G47.33 IMPRESSIONS: 1. Mild obstructive sleep apnea that becomes moderate in supine and REM supine sleep. Oxyhemoglobin desaturation occurs to a sai of 83%. 2. Moderate to severe snoring. 3. Moderate reduction in sleep efficiency. This may underestimate the true severity of sleep-disordered breathing. R (more content not included)... OTHER POLYSOMNOGRAM (PSG)/HOME SLE EP APNEA TEST (HSAT)on 12-03-2024 POLYSOMNOGRAM (PSG)/HOME SLEEP APNEA TEST (HSAT) [facility] [place] ? [address] [place] [address] PSG Study Report Name: [address] Date of Study: 12/03/2024 [facility]#: [id number] Age: 74 (: 1950) ESS: 11/24 Neck Circ. (in): 13.5 Height (in): 63.0 Weight (lbs): 134.0 BMI: 23.7 Referring Provider: EMMA SCHULTZ MD Mailcode: Sleep history: The patient is a 74 year old female with a history of witnessed apneas, waking up with dry mouth or sore throat, nocturnal leg kicking, an urge to move the legs, excessive daytime sleepiness, fatigue, and teeth grinding. side sleeper. Pertinent past medical history: Allergic rhinitis, Anxiety, Chronic sinusitis, Coronary artery disease, Depression, Deviated nasal septum, GERD, Chronic headache, Hyperlipidemia, Hypothyroidism Medications: Acebutolol,Levothyroxi ne,Rosuvastin, Sumatriptan, Glucosamine, Mag glycinate, MiraLAX, Centrum, Alpha lipoic acid,Niacin, Caq 10 Sleep procedure: PSG 4 or more [facility] ([id number]) Procedure: The study was attended continuously by a electroencephalogram technologist. The monitored parameters included: left (E1-M2) and right (E2-M1) EOG, frontal (F3-M2 and F4-M1), central (C3-M2 and C4-M1) and occipital (O1-M2 and O2-M1) EEG, mental and submental EMG, left and right anterior tibialis EMG, left and right flexor digitorum superficialis EMG, single ECG waveform, snoring, continuous airflow with thermistor, nasal pressure transducer, chest and abdominal effort, oxygen saturation, and body position via video monitoring. Hypopnea definition: The peak signal excursions drop by >= 30% of pre-event baseline using nasal pressure (diagnostic study), PAP device flow (titration study) or an alternative hypopnea sensor (diagnostic study). The duration of the >= 30% drop in signal excursion is >= 10 seconds. There is a greater than or equal to 4% oxygen desaturation from pre-event baseline. Respiratory Effort Related Arousal (RERA) definition: 10 seconds characterized by increasing respiratory effort or by flattening of the nasal pressure or PAP flow waveform leading to arousal from sleep when the sequence of breaths does not meet criteria for an apnea or hypopnea. Respiratory Disturbance Index (RDI) definition: RDI = (#apneas + #hypopneas + #RERAs) x 60 / TST. If AHI is 0.0, then RDI = RERA index. SLEEP ARCHITECTURE: The study started at 21:07:10 and ended at 04:23:42. Total sleep time (TST) was 281 minutes resulting in a sleep efficiency of 64.5% (total recording time (TRT) = 436 m). There were 18 awakenings with a total time awake after sleep onset of 81.0 minutes. The sleep latency was 74.0 minutes and the REM latency was 74 minutes. The patient spent 42.1% of sleep time in the supine position. The sleep stage percentages were 4.1% stage N1, 56.1% stage N2, 19.2% stage N3 and 20.6% REM sleep. There were 1 arousals, resulting in an arousal index of 0.2. There were 83 stage shifts. RESPIRATORY DATA: Moderate/Severe Snoring was noted. There were 21 respiratory events consisting of 11 apneas [10 obstructive (90.9%), 0 mixed (0.0%), and 1 central (9.1%)], 10 hypopneas and 0 RERAs. The apnea-hypopnea index (AHI) was 4.5 and the central-apnea index (CRISTAL) was 0.2. The respiratory effort related arousal (RERA) index was 0.0. The respiratory disturbance index (RDI) was 4.5. The mean oxygen saturation during the study was 94.0%, with a minimum oxygen saturation of 83.0%. The patient spent 1.4% (4.0 min) of sleep time with an oxygen saturation below 90% and 0.8% (2.3 min) of sleep time with an oxygen saturation at or below 88%. Zi-Louie/Periodic Breathing was not present. Supplemental oxygen was not administered. REM-Time REM AHI NREM-Time NREM AHI Total-Time Total RDI Total AHI Supine 50.5 m 16.6 68.0 m 5.3 118.5 m 10.1 10.1 Off-Supine 7.5 m 8.0 155.5 m 0.0 163.0 m 0.4 0.4 Total 58.0 m 15.5 223.5 m 1.6 281.5 m 4.5 4.5 MOVEMENT DATA: No abnormal behavior was noted. There were 0 periodic limb movements during sleep, resulting in a PLM-index of 0.0. Of these, 0 movements were associated with arousals, resulting in a PLM-arousal index of 0.0. ECG DATA: The average heart rate during sleep was 65 beats per minute, with a range of 59 to 83. During wake, the heart rate ranged from 60 to 85 beats per minute. Sinus bradycardia, but no arrhythmias were noted. OTHER NOTABLE FINDINGS: none. ICSD DIAGNOSIS: Obstructive Sleep Apnea Syndrome G47.33 IMPRESSIONS: 1. Mild obstructive sleep apnea that becomes moderate in supine and REM supine sleep. Oxyhemoglobin desaturation occurs to a sai of 83%. 2. Moderate to severe snoring. 3. Moderate reduction in sleep efficiency. This may underestimate the true severity of sleep-disordered breathing. RECOMMENDATIONS: 1. Review of sleep hygiene. 2. A CPAP titration polysomnography should be considered. INTERPRETING PHYSICIAN: Dr. Kristy Mcclure, DO, FCCP, FACOI, FAAS (more content not included)... [facility] [address] ([id number]) 1950 F T Date Time Provider Department 11/27/24 9:20 AM EMMA SCHULTZ INTMWS During your visit today, we recorded the following information about you: Pulse Blood pressure Weight Height 63/minute 112/71 61.6 kg 1.6 m Emma Schultz MD 11/27/2024 10:03 AM Signed We discussed your kidney function and lab results: - Your creatinine and GFR levels indicate stage 3 chronic kidney disease. Your GFR is currently 60, which is stable. We will continue to monitor these levels. - Your cholesterol levels are slightly elevated, but your good cholesterol (HDL) and cholesterol ratios are within acceptable ranges. - Your PTH and vitamin D levels are good. Continue your current regimen, including taking levothyroxine as prescribed (2 tablets on Sundays and 1 tablet the rest of the week). We discussed the buzzing sensation in your foot: - The buzzing sensation may be related to nerve compression (S1 nerve root) or other factors such as footwear or activity. - I recommend seeing a doffer for further evaluation and to determine if adjustments to your orthotics or other interventions are needed. - Your vitamin B12 and A1c levels were normal last year, so we will recheck your vitamin B12 levels to rule out any deficiencies. We discussed your arthritis and joint pain: - You can try hkxj-msb-dsovtpk curcumin or steeped lucia water to help reduce inflammation. - Continue taking glucosamine chondroitin and fish oil, as you noted these help with your joint pain and inflammation. We discussed your osteoporosis: - [facility]. Please proceed with this appointment as planned. Follow-up: - Schedule an appointment with a doffer for evaluation of the buzzing sensation in your foot. - Continue monitoring your kidney function and blood pressure. Keep taking your medications as prescribed. - Let us know if you experience any new or worsening symptoms, including changes in memory, mobility, or pain. Emma Schultz MD 11/27/2024 1:09 PM Addendum Reason for Visit Follow up HPI Mohini is a 74-year-old female with a history of hypothyroidism, osteoporosis, and arthritis, presenting for follow-up on recent lab results and new onset of a buzzing sensation in the foot. Mohini reports a buzzing sensation in her foot that began approximately one week ago. The sensation is described as similar to a phone vibrating and is localized to the underside and side of the foot, not involving the toes. The buzzing is intermittent, having been intense over the weekend, subsiding, and then recurring. It is present at the time of the visit and has been noted at night while lying in bed without pressure on the foot. She denies any burning sensation or external vibration that can be felt by touch. She wears Keens shoes with orthotic inserts, which were readjusted last year. She also reports generalized arthralgia, particularly in the hands, which she attributes to arthritis. She is currently taking glucosamine chondroitin and fish oil, both of which she finds helpful in managing her symptoms. She denies any other new symptoms. She is currently taking levothyroxine, with a regimen of two tablets on Sundays and one tablet on the other days of the week. She inquires if she should continue this regimen. She was previously on Lexapro but discontinued it due to diarrhea. She is also on acupressureolol for an irregular heartbeat diagnosed in her 40s. She reports that working outside is her "happy place" and helps her relax. She has a scheduled [facility] screening [facility]. Recent lab results show a GFR of 60, cholesterol levels that are "great" but still slightly elevated, and good PTH and vitamin D levels. Her TSH levels in October were reported as very good. Social History Tobacco Use Smoking status: Never Smokeless tobacco: Never Vaping Use Vaping status: Never Used Substance Use Topics Alcohol use: Yes Alcohol/week: 1.0 standard drink of alcohol Types: 1 Glasses of Wine (5oz) per week Comment: at dinner Drug use: Never Past medical history, appointments, medications, allergies reviewed. Pertinent Lab/Diagnostic Studies are reviewed and discussed today Current Outpatient Medications: multivitamin tablet rosuvastatin (CRESTOR) 10 mg tablet SUMAtriptan (IMITREX) 20 mg/actuation nasal spray levothyroxine (SYNTHROID) 50 mcg tablet acebutolol (SECTRAL) 200 mg capsule albuterol HFA (VENTOLIN HFA) 90 mcg/actuation inhaler azelastine 0.1% nasal spray niacin (NIACIN) 500 mg tablet lecithin 1,000 mg chew ubidecarenone Q-10 (COENZYME Q-10) 10 mg cap GAMMA-AMINOBUTYRIC ACID, BULK, MISC polyethylene glycol 3350 (MIRALAX ORAL) glucosam/chond-msm1/C/ castro/bor (GLUCOSAMINE-JESENIA (more content not included)... Normal [facility] Cobalamin (Vitamin B12) [Mas s/Vol]on 11-27-2024 Interpretation and review of laboratory results Normal [facility] VITAMIN B12on 11-27-2024 Cobalamin (Vitamin B12) [Mass/Vol] 876 pg/mL 232 - 1245 pg/mL [facility] Vit B12 SerPl-mCncon 025 Cobalamin (Vitamin B12) [Mass/Vol] 876 pg/mL Normal 232-1245 [facility] Comment on above: Order Comment: Speci men Type: BLOOD SPECIMENOrdering Facility: [facility] Address: [address] [place] [address] Performed By: #### 2 132-9 ####[facility] LABCLIA [id number] [place] [address] [place] 25(OH)D3 SerPl-ncon 2024 25-hydroxyvitamin D3 [Mass/Vol] 34.3 ng/mL Normal 31.0-80.0 [facility] Comment on above: Order Comment: Speci men Type: BLOOD SPECIMENOrdering Facility: [facility] Address: [address] [place] [id number] Performed By: #### 1 989-3 ####[facility] LABIA [id number] [place] [id number] [place] Basic metabolic 2000 panelon 11-22-2024 Anion gap [Moles/Vol] 14 mmol/L Normal 8-15 [facility] Comment on above: Order Comment: Speci men Type: BLOOD SPECIMENOrdering Facility: [facility] Address: [address] [place] [address] Performed By: #### 2 731-8, 31807-8 ####[facility] LABIA [id number] [place] [address] [place] Calcium [Mass/Vol] 9.5 mg/dL Normal 8.5-10.2 [facility] Comment on above: Order Comment: Speci men Type: BLOOD SPECIMENOrdering Facility: [facility] [facility] Address: [address] [place], [place] [address] Performed By: #### 2 731-8, 24418-8 ####[facility] LABIA [id number] [place] [id number] [place] Chloride [Moles/Vol] 105 mmol/L Normal 98-107 [facility] Comment on above: Order Comment: Speci men Type: BLOOD SPECIMENOrdering Facility: [facility] Address: [address] [place], [place] [address] Performed By: #### 2 731-8, 63034-3 ####[facility] LABIA [id number] [place] [id number] [place] CO2 [Moles/Vol] 21 mmol/L Low 22-30 [facility] Comment on above: Order Comment: Speci men Type: BLOOD SPECIMENOrdering Facility: [facility] Address: [address] [place], [place] [address] Performed By: #### 2 731-8, 72232-7 ####[facility] LABIA [id number] [address] [address] [place] Creatinine [Mass/Vol] 0.99 mg/dL High 0.58-0.96 [facility] Comment on above: Order Comment: Sabas herrmann Type: BLOOD SPECIMENOrdering Facility: [facility] Address: [address] [place] [address] Performed By: #### 2 731-8, 06611-0 ####[facility] LABIA [id number] [place] [address] [place] Creatinine and Glomerular filtration rate.predicted panel (S/P/Bld) 60 mL/min/1.73m??? Normal >=60 [facility] Comment on above: Order Comment: [facility] Type: BLOOD SPECIMENOrdering Facility: [facility] Address: [address] [place] [address] Result Comment: Barbara mated Glomerular Filtration Rate (eGFR) is calculated using the 2020 CKD-EPI creatinine equation. This equation utilizes serum creatinine, sex, and age as parameters. The creatinine assay has traceable calibration to isotope dilution-mass spectrometry. Refer to KDIGO guidelines for clinical interpretation. In patients with unstable renal function, e.g. those with acute kidney injury, the eGFR may not accurately reflect actual GFR. Performed By: #### 2 731-8, 15305-6 ####[facility] LABIA [id number] [place] [id number] [place] Glucose [Mass/Vol] 95 mg/dL Normal 74-99 [facility] Comment on above: Order Comment: Sabas montez Type: BLOOD SPECIMENOrdering Facility: [facility] Address: [address] [place] [address] Result Comment: The [place] Diabetes Association (ADA) provides guidance for cutoff values for fasting glucose and random glucose. The ADA defines fasting as no caloric intake for at least 8 hours. Fasting plasma glucose results between 100 to 125 mg/dL indicate increased risk for diabetes (prediabetes). Fasting plasma glucose results greater than or equal to 126 mg/dL meet the criteria for diagnosis of diabetes. In the absence of unequivocal hyperglycemia, results should be confirmed by repeat testing. In a patient with classic symptoms of hyperglycemia or hyperglycemic crisis, random plasma glucose results greater than or equal to 200 mg/dL meet the criteria for diagnosis of diabetes. Reference: Standards of Medical Care in Diabetes 2016, [place] [employer] Association. Diabetes Care. 2016.39(Suppl 1). Performed By: #### 2 731-8, 94005-3 ####[facility] LABCLIA [id number] [place] [address] [place] Potassium [Moles/Vol] 4.6 mmol/L Normal 3.7-5.1 [facility] Comment on above: Order Comment: Speci men Type: BLOOD SPECIMENOrdering Facility: [facility] Address: [address] [place] [address] Performed By: #### 2 731-8, 34129-5 ####[facility] LABIA [id number] [place] [id number] [place] Sodium [Moles/Vol] 140 mmol/L Normal 136-144 [facility] Comment on above: Order Comment: Sabas herrmann Type: BLOOD SPECIMENOrdering Facility: [facility] Address: [address] [place] [address] Performed By: #### 2 731-8, 76345-5 ####[facility] LABIA [id number] [place] [id number] [place] Urea nitrogen [Mass/Vol] 17 mg/dL Normal 7-21 [facility] Comment on above: Order Comment: Shannani men Type: BLOOD SPECIMENOrdering Facility: [facility] Address: [address] [place] [address] Performed By: #### 2 731-8, 29926-7 ####[facility] LABIA [id number] [address] [address] [place] PTH-Intact [facility] 05- Parathyrin.intact [Mass/Vol] 40 pg/mL Normal 15-65 [facility] Comment on above: Order Comment: Speci men Type: BLOOD SPECIMENOrdering Facility: [facility] Address: [address] [place] [address] Performed By: #### 2 731-8, 32538-9 ####[facility] LABCLIA [id number] AMIN[place] MOODY [address] CNPNon 11-21-2024 CNPN Telephone (INTMWS) [address]RSUL[address] L[address] ([id number]) 1950 F CHT Date Time Provider Department 11/21/24 EMMA SCHULTZ INTMWS During your visit today, we recorded the following information about you: Yamilka Stringer, EUSEBIO 11/21/2024 11:28 AM Signed Chelsie from [facility] calls and states that they do not bone density with TBS score. Patient was scheduled to get bone density testing done tomorrow, however Chelsie is calling patient to cancel testing. [facility] does not do testing as well. Chelsie will have patient call office. EUSEBIO Bailey M Robin, RN 11/21/2024 2:54 PM Signed Pt reports Pomchristie advised her to call pcp to find out where the bone density with TBS score can be done. Reviewed message below with patient, and advised we would call her back with more information. Pt agreeable. Emma Schultz MD 11/21/2024 5:23 PM Signed [facility] [place] Emma Valenzuela MD, Michelle 11/22/2024 9:56 AM Signed Spoke with patient and she stated she was coming in for lab work and she will schedule when she arrives. Allergies As of Date: 11/21/2024 Noted Allergy Reaction BONIVA (IBANDRONATE) 08/21/2021 14 - Other: See Comments Comments: Was so down and out for 4 weeks she does not want the medication FOSAMAX (ALENDRONATE) 08/21/2021 14 - Other: See Comments Comments: She was down for a month after taking them . Just did not tolerate them at all RADFIED-MNQ-TSE REDUCTASE INHIBIT*08/21/2021 17 - Myalgia Comments: Restless legs. Date Reviewed: 10/26/2024 Reviewed by: Kiki Bolton MA - Fully Assessed Reason for Visit: Patient Update [1234] Prescriptions as of 11/28/2024 - multivitamin tablet Take 1 tablet by mouth once daily. - rosuvastatin (CRESTOR) 10 mg tablet Take 1 tablet by mouth once daily. - SUMAtriptan (IMITREX) 20 mg/actuation nasal spray Use 1 spray in the nose as needed. - omeprazole (PRILOSEC) 20 mg capsule Take 1 capsule by mouth every 12 hours. - levothyroxine (SYNTHROID) 50 mcg tablet Take 1 tablet by mouth daily before breakfast. - acebutolol (SECTRAL) 200 mg capsule Take 1 capsule by mouth two times a day. - albuterol HFA (VENTOLIN HFA) 90 mcg/actuation inhaler Inhale 2 Puffs as instructed every 4 hours as needed for wheezing/shortness of breath. - azelastine 0.1% nasal spray Use 1 [place] in each nostril two times a day. - niacin (NIACIN) 500 mg tablet Take 500 mg by mouth daily with breakfast. - lecithin 1,000 mg chew Take 600 mg by mouth once daily. - ubidecarenone Q-10 (COENZYME Q-10) 10 mg cap Take by mouth twice daily. - VIT D3-FOLIC [id number]-J9-G4-B12 ORAL Take by mouth. - GAMMA-AMINOBUTYRIC ACID, BULK, MISC - polyethylene glycol 3350 (MIRALAX ORAL) Take by mouth once daily. - glucosam/chond-msm1/C/ castro/bor (JANKPULKJRN-NEAED-ONZ COMPLEX ORAL) Take by mouth once daily. - magnesium glycinate (MAG GLYCINATE ORAL) Take by mouth once daily. 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] 06/10/2022 Degenerative disc disease, cervical [M50.30] 01/03/2023 Cervical spondylosis [M47.812] 01/03/2023 Acute pain of right shoulder [M25.511] 11/15/2023 RUE weakness [R29.898] 11/15/2023 Encounter Status:Closed by ANGELINE STRINGERIE on 11/28/24 Normal [facility] CNPNon 10-29-2024 CNPN Telephone (INTMWS) URSULA L[address] ([id number]) 1950 F CHT Date Time Provider Department 10/29/24 EMMA SCHULTZ INTMWS During your visit today, we recorded the following information about you: Meri Linares 10/29/2024 2:35 PM Signed Patient called requesting to have bone density test at the [facility] Requesting to please fax order there Perlita Ingram MA 10/29/2024 2:52 PM Signed Please order test so they can be faxed for patient. Emma Schultz MD 10/29/2024 5:16 PM Signed The order are in please fax them. Not sure if I need to order them again Emma Valenzuela MD, Jane, MA 10/31/2024 8:39 AM Signed Faxed as requested. Allergies As of Date: 10/29/2024 Noted Allergy Reaction BONIVA (IBANDRONATE) 08/21/2021 14 - Other: See Comments Comments: Was so down and out for 4 weeks she does not want the medication FOSAMAX (ALENDRONATE) 08/21/2021 14 - Other: See Comments Comments: She was down for a month after taking them . Just did not tolerate them at all MDMULTD-AQW-MGV REDUCTASE INHIBIT*08/21/2021 17 - Myalgia Comments: Restless legs. Date Reviewed: 10/26/2024 Reviewed by: Kiki Bolton MA - Fully Assessed Reason for Visit: Orders [809] Cmt: Fax bone density to [facility] Prescriptions as of 10/31/2024 - multivitamin tablet Take 1 tablet by mouth once daily. - rosuvastatin (CRESTOR) 10 mg tablet Take 1 tablet by mouth once daily. - SUMAtriptan (IMITREX) 20 mg/actuation nasal spray Use 1 spray in the nose as needed. - omeprazole (PRILOSEC) 20 mg capsule Take 1 capsule by mouth every 12 hours. - escitalopram oxalate (LEXAPRO) 10 mg tablet Take 1 tablet by mouth once daily. - levothyroxine (SYNTHROID) 50 mcg tablet Take 1 tablet by mouth daily before breakfast. - acebutolol (SECTRAL) 200 mg capsule Take 1 capsule by mouth two times a day. - benzonatate (TESSALON PERLE) 100 mg capsule Take 2 capsules by mouth three times a day as needed. - albuterol HFA (VENTOLIN HFA) 90 mcg/actuation inhaler Inhale 2 Puffs as instructed every 4 hours as needed for wheezing/shortness of breath. - azelastine 0.1% nasal spray Use 1 [place] in each nostril two times a day. - niacin (NIACIN) 500 mg tablet Take 500 mg by mouth daily with breakfast. - lecithin 1,000 mg chew Take 600 mg by mouth once daily. - ubidecarenone Q-10 (COENZYME Q-10) 10 mg cap Take by mouth twice daily. - VIT D3-FOLIC FBEL-Y0-R7-B12 ORAL Take by mouth. - GAMMA-AMINOBUTYRIC ACID, BULK, MISC - polyethylene glycol 3350 (MIRALAX ORAL) Take by mouth once daily. - glucosam/chond-msm1/C/ castro/bor (LCCFHVEHEKD-MJYPD-WUU COMPLEX ORAL) Take by mouth once daily. - magnesium glycinate (MAG GLYCINATE ORAL) Take by mouth once daily. 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] 06/10/2022 Degenerative disc disease, cervical [M50.30] 01/03/2023 Cervical spondylosis [M47.812] 01/03/2023 Acute pain of right shoulder [M25.511] 11/15/2023 RUE weakness [R29.898] 11/15/2023 Encounter Status:Closed by PERLITA INGRAM on 10/31/24 [facility] CNOVon 10-26-2024 CNOV Office Visit (INTMWS ) [address]RSUL[address] L[address] ([id number]) 1950 F [facility] Date Time Provider Department 10/26/24 8:40 AM EMMA SCHULTZ INTMWS During your visit today, we recorded the following information about you: Pulse Respiration Blood pressure Weight 68/minute 16/minute 110/68 60.8 kg Height 1.6 m Emma Schultz MD 10/26/2024 9:[address] is a 73 year old female here for a Medicare wellness visit. Medicare Health Risk Assessment General Health Very good Exercise: Minutes/Day 40 min Exercise: Days/Week 3 days Alcohol: Daily Use Never Alcohol: Drinks/Day Patient does not drink Alcohol: 6 or more drinks Never Feel off balance No Concerns: Teeth/Dentures Yes Concerns: Sexual function No Troubled by feelings Stressed; Irritable Frequency: Eating healthy diet Nearly every day ADLs requiring help Safety precautions in home/vehicle No Smoke, vape, chews tobacco No Difficulty hearing Yes Difficulty seeing No Current Providers Specialists: I have reviewed specialist-related care of the patient in the medical record. Medical/Family history review Reviewed and updated problem list, medical/surgical/famil y/social history, medications, and allergies. Opioid use review Opioid Medications (last 90 days) No data to display Anxiety/Depression screening PHQ-2 Score: 1 (Lower risk for depression) JORGE-7 Score: 5 (Mild Anxiety) Recommendation: no further intervention at this time Cognitive screening Mini Cog Score: 5 Cognitive screening reviewed and No further action needed (score 3-5). Functional Observation Was the patient's Timed Up AND Go test unsteady or >= 12 seconds? No Advance Care Planning Surrogate decision maker and/or advance care plan documented Measurements BP 110/68 Pulse 68 Resp 16 Ht 160 cm (5' 2.99") Wt 60.8 kg (134 lb) BMI 23.74 kg/m? Vision Screening: Follows with optometry/ophthalmolog y Assessment/Plan Medicare annual wellness visit, subsequent (Z00.00) - Counseled on healthy diet and regular exercise - Fall avoidance information provided - Personalized prevention plan provided Reason for Visit Follow up HPI Mohini is a 73-year-old female presenting for a Medicare Annual Wellness Visit. Mohini reports significant stress and depression related to her 's dementia. She describes the situation as "very painful" and notes that her has periods of lucidity followed by confusion, which she finds frustrating and difficult to manage. She also reports that the stress is affecting her memory, causing her to forget why she entered a room or what she was looking up on her phone. She expresses concern about developing dementia, as her mother had the condition, which was attributed to multiple mini-strokes. She reports difficulty hearing, especially in group settings, and believes she is experiencing hearing loss. She has a family history of hearing loss, with her mother losing hearing in one ear suddenly and her sister requiring surgery and using two hearing aids. Mohini has been taking omeprazole since March for acid reflux and wishes to discontinue it due to concerns about potential kidney effects. She reports that certain foods, such as tomato sauce and fried foods, exacerbate her acid indigestion. She experiences migraines 2-3 times a month, which start on one side of her head and spread to her sinuses. If untreated, the migraines result in emesis. She does not experience auras and finds relief with sumatriptan. She reports poor sleep quality, waking up 4-5 times a night and feeling tired during the day despite getting more than 8 hours of sleep. She has a routine of going to bed at 2230 but sometimes cannot sleep. She uses a generic sleep aid but still wakes up during the night. She sleeps on her side and is unsure if she snores, as she and her sleep in separate bedrooms. She had a sleep study many years ago, which was normal, but her Apple Watch has recently indicated possible sleep apnea. She takes sotalol for an irregular heartbeat. She has lost an inch in height and experiences back pain around her kidney area, as well as lower back pain attributed to sciatica. She manages her sciatica with exercises. She exercises 40 minutes, 3 days a week, and works in her garden whenever it is not raining. She has stopped drinking alcohol, previously consuming a glass of red wine with dinner. She aims to drink 8 glasses of water a day and achieves this 80-90% of the time. Social History Tobacco Use Smoking status: Never Smokeless tobacco: Never Vaping Use Vaping status: Never Used Substance Use Topics Alcohol use: Yes Alcohol/week: 1.0 standard drink of alcohol Types: 1 Glasses of Wine (5oz) per week Comment: at dinner Drug use: Never Past medical history, appointments, medications, allergies reviewe (more content not included)... Normal [facility] CBC W Auto Differential pane l (Bld)on 10-15-2024 Basophils (Bld) [#/Vol] 0.08 10*3/uL Normal <0.11 [facility] Comment on above: Order Comment: Speci men Type: BLOOD SPECIMENOrdering Facility: [facility] Address: [address] [place] [address] Performed By: #### 5 7021-8 ####[facility] LABIA [id number] [place] [address] [place] Basophils/100 WBC (Bld) 1.6 % Normal [facility] Comment on above: Order Comment: Speci men Type: BLOOD SPECIMENOrdering Facility: [facility] Address: [address] [place] [address] Performed By: #### 5 7021-8 ####[facility] LABCLIA [id number] [place] [id number] [place] Differential cell count method Nom (Bld) Auto Normal [facility] Comment on above: Order Comment: Speci men Type: BLOOD SPECIMENOrdering Facility: [facility] Address: [address] [place] [address] Performed By: #### 5 7021-8 ####[facility] LABCLIA [id number] [place] [address] [place] Eosinophils (Bld) [#/Vol] 0.18 10*3/uL Normal <0.46 [facility] Comment on above: Order Comment: Speci men Type: BLOOD SPECIMENOrdering Facility: [facility] Address: [address] [place] [address] Performed By: #### 5 7021-8 ####[facility] LABCLIA [id number] [place] [address] [place] Eosinophils/100 WBC (Bld) 3.6 % Normal [facility] Comment on above: Order Comment: Speci men Type: BLOOD SPECIMENOrdering Facility: [facility] Address: [address] [place] [address] Performed By: #### 5 7021-8 ####[facility] LABCLIA [id number] [place] [address] [place] Erythrocyte distribution width (RBC) [Ratio] 12.7 % Normal 11.5-15.0 [facility] Comment on above: Order Comment: Speci men Type: BLOOD SPECIMENOrdering Facility: [facility] Address: [address] [place] [address] Performed By: #### 5 7021-8 ####[facility] LABCLIA [id number] [place] [address] [place] Hematocrit (Bld) [Volume fraction] 38.1 % Normal 36.0-46.0 [facility] Comment on above: Order Comment: Speci men Type: BLOOD SPECIMENOrdering Facility: [facility] Address: [address] [place] [address] Performed By: #### 5 7021-8 ####[facility] LABCLIA [id number] [place] [address] [place] Hemoglobin (Bld) [Mass/Vol] 12.2 g/dL Normal 11.5-15.5 [facility] Comment on above: Order Comment: Speci men Type: BLOOD SPECIMENOrdering Facility: [facility] Address: [address] [place] [address] Performed By: #### 5 7021-8 ####[facility] LABCLIA [id number] [address], [place] [address] [place] Immature granulocytes (Bld) [#/Vol] 10*3/uL Normal <0.10 [facility] Comment on above: Order Comment: Speci men Type: BLOOD SPECIMENOrdering Facility: [facility] Address: [address] [place] [address] Performed By: #### 5 7021-8 ####[facility] LABCLIA [id number] [address], [place] [address] [place] Immature granulocytes/100 WBC (Bld) 0.2 % Normal [facility] Comment on above: Order Comment: Speci men Type: BLOOD SPECIMENOrdering Facility: [facility] Address: [address] [place] [address] Performed By: #### 5 7021-8 ####[facility] LABCLIA [id number] [address], [place] [address] [place] Lymphocytes (Bld) [#/Vol] 2.20 10*3/uL Normal 1.00-4.00 [facility] Comment on above: Order Comment: Speci men Type: BLOOD SPECIMENOrdering Facility: [facility] Address: [address] [place] [address] Performed By: #### 5 7021-8 ####[facility] LABCLIA [id number] [address], [facility] [place] Lymphocytes/100 WBC (Bld) 44.1 % Normal [facility] Comment on above: Order Comment: Speci men Type: BLOOD SPECIMENOrdering Facility: [facility] Address: [address] [place] [address] Performed By: #### 5 7021-8 ####[facility] LABCLIA [id number] [place] MCH (RBC) [Entitic mass] 30.0 pg Normal 26.0-34.0 [facility] Comment on above: Order Comment: Speci men Type: BLOOD SPECIMENOrdering Facility: [facility] Address: [address] [place] [address] Performed By: #### 5 7021-8 ####[facility] LABCLIA [id number] [place] [address] [place] MCHC (RBC) [Mass/Vol] 32.0 g/dL Normal 30.5-36.0 [facility] Comment on above: Order Comment: Speci men Type: BLOOD SPECIMENOrdering Facility: [facility] Address: [address] [place] [address] Performed By: #### 5 7021-8 ####[facility] LABCLIA [id number] [place] [address] [place] MCV (RBC) [Entitic vol] 93.8 fL Normal 80.0-100.0 [facility] Comment on above: Order Comment: Speci men Type: BLOOD SPECIMENOrdering Facility: [facility] Address: [address] [place] [address] Performed By: #### 5 7021-8 ####[facility] LABIA [id number] [place] [address] [place] Monocytes (Bld) [#/Vol] 0.33 10*3/uL Normal <0.87 [facility] Comment on above: Order Comment: Speci men Type: BLOOD SPECIMENOrdering Facility: [facility] Address: [address] [place] [address] Performed By: #### 5 7021-8 ####[facility] LABCLIA [id number] [place] [address] [place] Monocytes/100 WBC (Bld) 6.6 % Normal [facility] Comment on above: Order Comment: Speci men Type: BLOOD SPECIMENOrdering Facility: [facility] Address: [address] [place] [address] Performed By: #### 5 7021-8 ####[facility] LABCLIA [id number] [place] [address] [place] Neutrophils (Bld) [#/Vol] 2.19 10*3/uL Normal 1.45-7.50 [facility] Comment on above: Order Comment: Speci men Type: BLOOD SPECIMENOrdering Facility: [facility] Address: [address] [place] [address] Performed By: #### 5 7021-8 ####[facility] LABCLIA [id number] [place] [address] [place] Neutrophils/100 WBC (Bld) 43.9 % Normal [facility] Comment on above: Order Comment: Speci men Type: BLOOD SPECIMENOrdering Facility: [facility] Address: [address] [place] [address] Performed By: #### 5 7021-8 ####[facility] LABCLIA [id number] [place] [address] [place] Nucleated RBC (Bld) [#/Vol] 10*3/uL Normal <0.01 [facility] Comment on above: Order Comment: Speci men Type: BLOOD SPECIMENOrdering Facility: [facility] Address: [address] [place] [address] Performed By: #### 5 7021-8 ####[facility] LABCLIA [id number] [place] [address] [place] Nucleated RBC/100 WBC (Bld) [Ratio] 0.0 /100 WBC Normal [facility] Comment on above: Order Comment: Speci men Type: BLOOD SPECIMENOrdering Facility: [facility] Address: [address] [place] [address] Performed By: #### 5 7021-8 ####[facility] LABCLIA [id number] [address] [place] [address] [place] OF JUSTINE Platelet mean volume (Bld) [Entitic vol] 11.1 fL Normal 9.0-12.7 [facility] Comment on above: Order Comment: Speci men Type: BLOOD SPECIMENOrdering Facility: [facility] Address: [address] [place] [address] Performed By: #### 5 7021-8 ####[facility] LABIA [id number] [address] [place] [address] [place] Platelets (Bld) [#/Vol] 167 10*3/uL Normal 150-400 [facility] Comment on above: Order Comment: Speci men Type: BLOOD SPECIMENOrdering Facility: [facility] Address: [address] [place] [address] Performed By: #### 5 7021-8 ####[facility] LABIA [id number] [address], [facility]95 [place] RBC (Bld) [#/Vol] 4.06 10*6/uL Normal 3.90-5.20 [facility] Comment on above: Order Comment: Speci men Type: BLOOD SPECIMENOrdering Facility: [facility] Address: [address] [place] [address] Performed By: #### 5 7021-8 ####[facility] LABIA [id number] [address] [place] [address] [place] WBC (Bld) [#/Vol] 4.99 10*3/uL Normal 3.70-11.00 [facility] Comment on above: Order Comment: Speci men Type: BLOOD SPECIMENOrdering Facility: [facility] Address: [address] [place] [address] Performed By: #### 5 7021-8 ####[facility] LABCLIA [id number] [address] [place] [address] [place] Comprehensive metabolic 2000 panelon 10-15-2024 Albumin [Mass/Vol] 4.1 g/dL Normal 3.9-4.9 [facility] Comment on above: Order Comment: Speci men Type: BLOOD SPECIMENOrdering Facility: [facility] Address: [address] [place] [address] Performed By: #### 2 4323-8, 89220-4, 6-3 ####[facility] LABCLIA [id number] [place] [address] [place] ALP [Catalytic activity/Vol] 63 U/L Normal 34-123 [facility] Comment on above: Order Comment: Speci men Type: BLOOD SPECIMENOrdering Facility: [facility] Address: [address] [place] [address] Performed By: #### 2 4323-8, 50555-2, 3015-3 ####[facility] LABCLIA [id number] [place] [address] [place] ALT [Catalytic activity/Vol] 15 U/L Normal 7-38 [facility] Comment on above: Order Comment: Speci men Type: BLOOD SPECIMENOrdering Facility: [facility] Address: [address] [place] [address] Performed By: #### 2 4323-8, 49091-0, 3015-3 ####[facility] LABCLIA [id number] [place] [id number] [place] Anion gap [Moles/Vol] 10 mmol/L Normal 8-15 [facility] Comment on above: Order Comment: Speci men Type: BLOOD SPECIMENOrdering Facility: [facility] Address: [address] [place], [place] [address] Performed By: #### 2 4323-8, 07770-3, 6-3 ####[facility] LABCLIA [id number] [address] [address] [place] AST [Catalytic activity/Vol] 24 U/L Normal 13-35 [facility] Comment on above: Order Comment: Speci men Type: BLOOD SPECIMENOrdering Facility: [facility] Address: [address] [id number] Performed By: #### 2 4323-8, 34118-9, 3015-3 ####[facility] LABCLIA [id number] [address] [address] [place] Bilirubin [Mass/Vol] 0.5 mg/dL Normal 0.2-1.3 [facility] Comment on above: Order Comment: Speci men Type: BLOOD SPECIMENOrdering Facility: [facility] Address: [address] [place], [place] [address] Performed By: #### 2 4323-8, 85824-2, 3 ####[facility] LABCLIA [id number] [place] [address] [place] Calcium [Mass/Vol] 9.3 mg/dL Normal 8.5-10.2 [facility] Comment on above: Order Comment: Speci men Type: BLOOD SPECIMENOrdering Facility: [facility] Address: [address] [place], [place] [address] Performed By: #### 2 4323-8, 47842-1, 3 ####[facility] LABCLIA [id number] [place] [address] [place] Chloride [Moles/Vol] 108 mmol/L High 98-107 [facility] Comment on above: Order Comment: Speci men Type: BLOOD SPECIMENOrdering Facility: [facility] Address: [address] [place], [place] [address] Performed By: #### 2 4323-8, 71982-4, 3 ####[facility] LABCLIA [id number] [address] [address] [place] CO2 [Moles/Vol] 25 mmol/L Normal 22-30 [facility] Comment on above: Order Comment: Speci men Type: BLOOD SPECIMENOrdering Facility: [facility] Address: [address] [place] [id number] Performed By: #### 2 4323-8, 44921-8, 3015-3 ####[facility] LABIA [id number] [address] [address] [place] Creatinine [Mass/Vol] 1.08 mg/dL High 0.58-0.96 [facility] Comment on above: Order Comment: Spectej men Type: BLOOD SPECIMENOrdering Facility: [facility] Address: [address] [place] [address] Performed By: #### 2 4323-8, 02442-4, 3 ####[facility] [id number] [place] [address] [place] Creatinine and Glomerular filtration rate.predicted panel (S/P/Bld) 54 mL/min/1.73m??? Low >=60 [facility] Comment on above: Order Comment: Sabas herrmann Type: BLOOD SPECIMENOrdering Facility: [facility] Address: [address] [place] [address] Result Comment: Barbara mated Glomerular Filtration Rate (eGFR) is calculated using the 2020 CKD-EPI creatinine equation. This equation utilizes serum creatinine, sex, and age as parameters. The creatinine assay has traceable calibration to isotope dilution-mass spectrometry. Refer to KDIGO guidelines for clinical interpretation. In patients with unstable renal function, e.g. those with acute kidney injury, the eGFR may not accurately reflect actual GFR. Performed By: #### 2 4323-8, 81344-8, 3 ####[facility] LABIA [id number] [address] [address] [place] Glucose [Mass/Vol] 80 mg/dL Normal 74-99 [facility] Comment on above: Order Comment: Sabas herrmann Type: BLOOD SPECIMENOrdering Facility: [facility] Address: [address] [place] [id number] Result Comment: The [place] Diabetes Association (ADA) provides guidance for cutoff values for fasting glucose and random glucose. The ADA defines fasting as no caloric intake for at least 8 hours. Fasting plasma glucose results between 100 to 125 mg/dL indicate increased risk for diabetes (prediabetes). Fasting plasma glucose results greater than or equal to 126 mg/dL meet the criteria for diagnosis of diabetes. In the absence of unequivocal hyperglycemia, results should be confirmed by repeat testing. In a patient with classic symptoms of hyperglycemia or hyperglycemic crisis, random plasma glucose results greater than or equal to 200 mg/dL meet the criteria for diagnosis of diabetes. Reference: Standards of Medical Care in Diabetes 2016, [place] Diabetes Association. Diabetes Care. 2016.39(Suppl 1). Performed By: #### 2 4323-8, 59299-7, 3016-3 ####[facility] LABIA [id number] [place] [address] [place] Potassium [Moles/Vol] 4.4 mmol/L Normal 3.7-5.1 [facility] Comment on above: Order Comment: Speci men Type: BLOOD SPECIMENOrdering Facility: [facility] Address: [address] [place] [address] Performed By: #### 2 4323-8, 47177-9, 6-3 ####[facility] [id number] [place] [address] [place] Protein [Mass/Vol] 6.5 g/dL Normal 6.3-8.0 [facility] Comment on above: Order Comment: Speci men Type: BLOOD SPECIMENOrdering Facility: [facility] Address: [address] [phone] Performed By: #### 2 4323-8, 53774-2, 6-3 ####[facility] LABIA [id number] [place] [address] [place] Sodium [Moles/Vol] 143 mmol/L Normal 136-144 [facility] Comment on above: Order Comment: Speci men Type: BLOOD SPECIMENOrdering Facility: [facility] Address: [address] [phone] Performed By: #### 2 4323-8, 03259-3, 3016-3 ####[facility] LABCLIA [id number] [address] [address] [place] Urea nitrogen [Mass/Vol] 21 mg/dL Normal 7-21 [facility] Comment on above: Order Comment: Speci men Type: BLOOD SPECIMENOrdering Facility: [facility] Address: [address] [place] [address] Performed By: #### 2 4323-8, 51579-1, 3016-3 ####[facility] LABCLIA [id number] [address] [address] [place] HbA1c (Bld)on 10-15-2024 Average glucose Estimated from glycated hemoglobin (Bld) [Mass/Vol] 103 mg/dL Normal [facility] Comment on above: Order Comment: Speci [facility] Type: BLOOD SPECIMENOrdering Facility: [facility] Address: [address] [place] [address] Result Comment: eAG: (Estimated average glucose) is a calculated value from HgbA1c and is customer operations representative of the average blood glucose level in the last 2-3 month period. Performed By: #### 5 5454-3 ####[facility] LABCLIA [id number] [address] [address] [facility] HbA1c (Bld) [Mass fraction] 5.2 % Normal 4.3-5.6 [facility] Comment on above: Order Comment: Speci [facility] Type: BLOOD SPECIMENOrdering Facility: [facility] Address: [address] [place] [address] Result Comment: [place] Diabetes Association guidelines indicate that patients with HgbA1c in the range 5.7-6.4% are at increased risk for development of diabetes, and intervention by lifestyle modification may be beneficial. HgbA1c greater or equal to 6.5% is considered diagnostic of diabetes. Performed By: #### 5 5454-3 ####[facility] LABCLIA [id number] [address] [address] [place] Lipid 1996 panelon 5 Cholesterol [Mass/Vol] 195 mg/dL Normal <200 [facility] Comment on above: Order Comment: Speci men Type: BLOOD SPECIMENOrdering Facility: [facility] Address: [address] [place] [address] Result Comment: <200 mg/dL, Desirable 200-239 mg/dL, Borderline high >239 mg/dL, High Performed By: #### 2 4323-8, 43203-6, 3015-3 ####[facility] LABCLIA [id number] [address] [place] Cholesterol in HDL [Mass/Vol] 67 mg/dL Normal >39 [facility] Comment on above: Order Comment: Speci men Type: BLOOD SPECIMENOrdering Facility: [facility] Address: [address] [place] [place] [address] Result Comment: 40-5 9 mg/dL, Acceptable >59 mg/dL, High: Negative risk factor for coronary heart disease <40 mg/dL, Low: Positive risk factor for coronary heart disease Performed By: #### 2 4323-8, 75127-0, 3015-3 ####[facility] LABCLIA [id number] [address] [place] Cholesterol in LDL [Mass/Vol] 112 mg/dL High <100 [facility] Comment on above: Order Comment: Speci men Type: BLOOD SPECIMENOrdering Facility: [facility] Address: [address] [place] [address] Result Comment: <100 mg/dL, Optimal 100-129 mg/dL, Near optimal/above optimal 130-159 mg/dL, Borderline high 160-189 mg/dL, High >189 mg/dL, Very high Secondary prevention optimal LDL Cholesterol levels are recommended to be < 70 mg/dL Performed By: #### 2 4323-8, 98878-5, 6-3 ####[facility] LABCLIA [id number] [facility] [address] [address] [place] Cholesterol in LDL/Cholesterol in HDL [Mass ratio] 1.67 {ratio} Normal <2.54 [facility] Comment on above: Order Comment: Shannantej herrmann Type: BLOOD SPECIMENOrdering Facility: [facility] Address: [address] [place] [address] Result Comment: Montez pfeiffer: 1. National Cholesterol Education Program ATP III Guideline At-A-Glance Quick Desk Reference: National Heart, Lung, and Blood Clark. National Institutes of Health. 2001: NIH Publication No. 01-3305. 2. An International Atherosclerosis Society position paper: global recommendations for the management of dyslipidemia: executive summary, Atherosclerosis. 2014: 232(2):410-413. Performed By: #### 2 4323-8, 26363-8, 3015-3 ####[facility] LABCLIA [id number] [place] [address] [place] Cholesterol in VLDL [Mass/Vol] 16 mg/dL Normal <30 [facility] Comment on above: Order Comment: Shannantej herrmann Type: BLOOD SPECIMENOrdering Facility: [facility] Address: [address] [place] [address] Performed By: #### 2 4323-8, 19209-6, 3015-3 ####[facility] LABCLIA [id number] [place] [address] [place] Cholesterol non HDL [Mass/Vol] 128 mg/dL Normal <130 [facility] Comment on above: Order Comment: Sabas herrmann Type: BLOOD SPECIMENOrdering Facility: [facility] Address: [address] [place] [address] Result Comment: <130 mg/dL, Optimal 130-159 mg/dL, Near optimal/above optimal 160-189 mg/dL, Borderline high 190-219 mg/dL, High >219 mg/dL, Very high Secondary prevention optimal non HDL Cholesterol levels are recommended to be <100 mg/dL Performed By: #### 2 4323-8, 43389-8, 6-3 ####[facility] LABCLIA [id number] [address] [address] [place] Cholesterol.total/Cho lesterol in HDL [Mass ratio] 2.91 {ratio} Normal <5.10 [facility] Comment on above: Order Comment: Speci men Type: BLOOD SPECIMENOrdering Facility: [facility] Address: [address] [place] [address] Performed By: #### 2 4323-8, 83617-4, 3016-3 ####[facility] LABCLIA [id number] [address] [facility] FASTING TIME 12 hrs Normal [facility] Comment on above: Order Comment: Speci men Type: BLOOD SPECIMENOrdering Facility: [facility] Address: [address] [place] [address] Performed By: #### 2 4323-8, 73403-5, 3 ####[facility] LABCLIA [id number] [place] [address] [place] Triglyceride [Mass/Vol] 82 mg/dL Normal <150 [facility] Comment on above: Order Comment: Speci men Type: BLOOD SPECIMENOrdering Facility: [facility] Address: [address] [place] [place] [address] Result Comment: <150 mg/dL, Normal 150-199 mg/dL, Borderline high 200-499 mg/dL, High >499 mg/dL, Very high Performed By: #### 2 4323-8, 28699-7, 3015-3 ####[facility] LABCLIA [id number] [place] [address] [place] TSH SerPl-aCncon 10-15-2024 TSH Qn 2.310 m[IU]/L Normal 0.270-4.200 [facility] Comment on above: Order Comment: Speci men Type: BLOOD SPECIMENOrdering Facility: [facility] Address: [address] [place] [address] Performed By: #### 2 4323-8, 83822-2, 6-3 ####[facility] LABCLIA [id number] [place] [address] [place] L3410.9998on 09-15-2024 [facility]. COMMENT Normal . [facility] Comment on above: Order Comment: [id number] 4 STOOL CULTURE RT Result Comment: Test Ordered: [id number] Stool Culture Salmonella/Shigella Screen Note: CB Final report Reference Range: . Result 1 Comment CB Reference Range: . No Salmonella or Shigella recovered. Campylobacter Culture Note: CB Final report Reference Range: . Result 1 Comment CB Reference Range: . No Campylobacter species isolated. E coli Shiga Toxin EIA Negative Reference Range: Negative Performed at: [address] [id number] [employer] Teacher: Ilya Levy PhD, Phone: [phone] Performed By: #### M 600.5000, M7400.3302, M100.6796, L3410.9998, L7000.0700 #### [facility] [address] [place], [place], [address] M7400.3302on 09-14-2024 M7400.3302 __ TESTING PERFORMED AT [facility]. ORIGINAL REPORT ON FILE IN LAB CONTAINS ADDITIONAL TEST SITE INFORMATION. Giardia Lamblia EIA NEGATIVE Normal [facility] Comment on above: Performed By: #### M 600.5000, M7400.3302, M100.6796, L3410.9998, L7000.0700 #### [facility] [address] [place], [address] Ova and Parasites 8623on OP OVA AND PARASITES EXAM, ROUTINE These results were obtained using wet preparation(s) and trichrome stained smear. This test does not include testing for Crytosporidium parvum, Cyclospora, or Microsporidia. One negative specimen does not rule out the possibility of a parasitic infection. TESTING PERFORMED AT [facility]. ORIGINAL REPORT ON FILE IN LAB CONTAINS ADDITIONAL TEST SITE INFORMATION. Ova/Parasite Exam NO OVA, CYSTS, OR PARASITES FOUND. Normal [facility] Comment on above: Performed By: #### M 600.5000, M7400.3302, M100.6796, L3410.9998, L7000.0700 #### [facility] [address] [place], [address] Calprotectin, Stoolon [address] 74 ug/g Normal 0-120 [facility] Comment on above: Result Comment: Conc entration Interpretation Follow-Up < 5 - 50 ug/g Normal None >50 -120 ug/g Borderline Re-evaluate in 4-6 weeks >120 ug/g Abnormal Repeat as clinically indicated Performed at: [address] [id number] [employer] Teacher: Balbina Krueger MD, Phone: [phone] Performed By: #### M 600.5000, M7400.3302, M100.6796, L3410.9998, L7000.0700 #### [facility] [address] [place], [place], [address] C. difficile DNA MARJORIE+probe Q l (Unsp spec)Ordered By: Concha Farooq on 09-11-2024 Clostridioides difficile (PCR) [facility] CDIFF (PCR)on 09-11-2024 CDIFF Pending 027 027 NAP1-B1 Presumptive Negative *for epidemiolologic???use C. Diff PCR Negative- No toxigenic C. Diff Detected Normal [facility] Comment on above: Performed By: #### M 600.5000, M7400.3302, M100.6796, L3410.9998, L7000.0700 #### [facility] [address] [place], [address] Calprotectin stoolOrdered By : Concha Farooq on 09-11-2024 Calprotectin stool 74 ug/g 0-120 [facility] Comment on above: Concentration Interp retation Follow-Up< 5 - 50 ug/g Normal None>50 -120 ug/g Borderline Re-evaluate in 4-6 weeks >120 ug/g Abnormal Repeat as clinically indicatedPerformed at: [facility] LabJoseph Ville [id number] Director: Balbina Krueger MD, Phone: [phone] Stool Calprotectin 74 ug/g 0-120 [facility] Comment on above: Concentration Interp retation Follow-Up< 5 - 50 ug/g Normal None>50 -120 ug/g Borderline Re-evaluate in 4-6 weeks >120 ug/g Abnormal Repeat as clinically indicatedPerformed at: [facility] [address] [id number] Director: Balbina Krueger MD, Phone: [phone] Clostridium difficile detect ion by polymerase chain reactionOrdered By: Concha Farooq on 09-11-2024 C. difficile DNA MARJORIE+probe Ql (Unsp spec) [facility] Giardia lamblia antigen assa y by enzyme immunoassayOrdered By: Concha Farooq on 09-11-2024 Giardia Antigen (ELENA) [facility] Ova and parasitesOrdered By: Concha Farooq on 09-11-2024 Ova and Parasites [facility] Gastroenterology Visit Repor ton 09-04-2024 Gastroenterology Visit Report [facility] [address] [place] [address] OFFICE VISIT Date of Service: 09/04/24 MR#: [id number] Acct: [id number] Name: URSULA L[address] Rep #: [id number] : 1950 Provider: CARMELLA Corbin Age/Sex: 73/F [place] [facility] [place] Status: Signed Intake Vital Signs 05/12/24 10:15 Height 5 ft 3 in Weight: 135 lb BMI 23.9 BP 163/78 H Respiration 18 Pulse 67 Temp 97 F L Temp Source Temporal Pulse Oximetry (%) 100 Intake Visit Reasons: 3 M FU Chief Complaint: dysphagia f/u English And Reading Instructor Required: No Is patient in pain?: No Allergies ibandronate sodium Allergy (Severe, Verified 09/04/24 08:59) N/V/D Ofyveqc-NFR-HtQ Reductase Inhibitor Allergy (Mild, Verified 09/04/24 08:59) myalgia alendronate sodium Allergy (Unknown, Verified 09/04/24 08:59) Other Environmental Allergies: Uncoded (seasonal) Allergy (Unknown, Verified 09/04/24 08:59) Other gatifloxacin Adverse Reaction (Unknown, Verified 09/04/24 08:59) Rash Medications ???Medication ???Instructions ???Recorded ???Confirmed ???Type acebutolol 200 mg capsule 200 mg PO BID 02/27/24 09/04/24 Hi story albuterol sulfate 90 mcg/actuation 2 puff inhalation Q6H PRN 09/04/24 History aerosol inhaler shortness of breath or wheezing azelastine 137 mcg (0.1 %) nasal 2 spray intranasal BID PRN allergy 02/27/24 09/04/24 History spray symptoms coenzyme Q10 10 mg capsule 10 mg PO BID 02/27/24 09/04/24 His tory levothyroxine 50 mcg capsule 50 mcg PO DAILY 02/27/24 09/04/24 History polyethylene glycol 3350 17 4 g PO DAILY 02/27/24 09/04/24 His tory gram/dose oral powder (Miralax) rosuvastatin 10 mg tablet 10 mg PO DAILY 02/27/24 09/04/24 H istory sumatriptan 20 mg/actuation nasal 20 mg intranasal Q2H PRN migraine 02/27/24 09/04/24 History spray headache vitamin B complex 1 cap PO DAILY 02/27/24 09/04/24 H istory antiarthritic combination no.2 900 900 mg PO DAILY 03/21/24 5 History mg tablet (glucosamine-chondroit in) magnesium glycinate 100 mg (as 100 mg PO DAILY 03/21/24 09/04/24 History glycinate) tablet llwojfuteulf-Tu-ojmx-m inerals 18 1 tab PO DAILY 03/21/24 09/04/24 H istory mg-0.4 mg tablet niacin 500 mg tablet 500 mg PO DAILY 03/21/24 09/04/24 History omega 3 350 mg-dha 235 mg-epa 90 1 cap PO DAILY 03/21/24 09/04/24 H istory mg-fish oil 597 mg capsule,delay rel ([place]-3) sunflower lecithin 1,200 mg PO BID 03/21/24 09/04/24 History omeprazole 20 mg capsule,delayed 20 mg PO BID #60 caps 06/06/2410/26 Rx release Have you fallen in the past year?: No PFSH Medical History PONV (postoperative nausea and vomiting) Wears glasses Depression Thyroid disease Arthritis Chronic kidney disease (CKD) History of renal disease Restless legs Migraine headache Syncope History of IBS Heartburn Gastric reflux Non-smoker Chronic cough History of stress test ( 2012) History of irregular heartbeat Surgical History History of cystoscopy ( 1979) History of ankle surgery History of sinus surgery ( 1999) History of cataract extraction with lens replacement Social History Smoking Status: Never smoker HPI HPI Chief Complaint: dysphagia f/u Details: URSULA LANE, is a 73 F who presents to the office today for f/u. I established January 2024 with difficulty swallowing. EGD 03.23.24 Non-severe reflux esophagitis with no bleeding. Biopsied. - Ectopic gastric mucosa in the upper third of the esophagus. - Medium-sized hiatal hernia. - Multiple gastric polyps. - No gross lesions in the first portion of the duodenum. Last OV 12..24 Pt doing better since EGD. Having two episodes of dysphagia per week which is improved. Continue PPI BID. OV 3..25 Pt has been doing well with her dysphagia. She has not had further issues with this. She has noticed since starting PPI that she is more full in the evenings. She has had some issues with stool passage during urination. This was happening multiple times per day but has improved a little recently. Last colonoscopy was in 2019 with normal findings. ROS Const Constitutional: Positive for fatigue, headache(s) and weight change; No fever(s) ENT ENT: Positive for headache(s); No difficulty swallowing Gastro GI: Positive for change in bowel habits, diarrhea and nausea/dyspepsia; No abdominal pain, belching, bloating, change in stool character, coffee ground emesis, constipation, cramping, heartburn, difficulty swallowing, feeling full early, excessive flatus, incontinent of stools, Vomiting blood/hematemesis, B (more content not included)... Normal [facility] DBT Breast - bilateral scree barbgon 09-03-2024 IMPRESSION: There is no mammographic evidence of malignancy in either breast. Routine screening mammogram is recommended. Annual mammogram will be due in 1 year. BI-RADS Category 1: Negative RISK: Based on the Tyrer-Cuzick (TC) risk assessment model, this patient has a 2.3% lifetime risk of developing breast cancer, meaning they are at average risk for developing breast cancer. However, this is only an estimate based on available history provided on the patient's questionnaire. We encourage all patients to talk with their providers about these results, further recommendations for managing breast health, and appropriate supplemental screening options if the patient has dense breast tissue. Interpreting Radiologist: Marcin Marie M.D. Electronically signed on: 09/03/2024 Custody Officer: MARIO Transcrilatia Date/Time: Sep 03 2024 9:00A Dictated by: MARCIN MARIE MD This examination was interpreted and the report reviewed and electronically signed by: MARCIN MARIE MD on Sep 03 2024 12:48PM [facility] DIVISION OF RADIOLOGY * * *Final Report* * * DATE OF EXAM: Sep 03 2024 9:10AM [facility] [id number] - [facility] SCREENING W JAIRO / PROCEDURE REASON: Encounter for screening mammogram for breast cancer * * * * Physician Interpretation * * * * RESULT: [facility] [address] [place] [address] #[id number] - [facility] SCREENING W JAIRO HISTORY: 73 year-old patient seen for screening and is asymptomatic in both breasts. Patient states no personal history of breast cancer. The patient has no family history of breast cancer. COMPARISON STUDIES: The present examination has been compared to prior imaging studies dated 07/09/2021 (mammogram), 07/27/2022 (mammogram) and 09/01/2023 (mammogram). MAMMOGRAM TECHNIQUE: The study was acquired using full field digital technology and interpreted from soft copy. Digital Breast Tomosynthesis (DBT) images were obtained and used to assist in the interpretation of this examination. MAMMOGRAM FINDINGS: There are scattered areas of fibroglandular density. No suspicious masses, calcifications or other abnormalities are seen in either breast. There are no significant interval changes. DIVISION OF RADIOLOGY Provider, [facility] - 09/03/2024 * * *Final Report* * * DATE OF EXAM: Sep 03 2024 9:10AM [facility] 0582 - RAF SCREENING W JAIRO / PROCEDURE REASON: Encounter for screening mammogram for breast cancer * * * * Physician Interpretation * * * * RESULT: [facility] [address] [place] [address] #[id number] - [facility] SCREENING W JAIRO HISTORY: 73 year-old patient seen for screening and is asymptomatic in both breasts. Patient states no personal history of breast cancer. The patient has no family history of breast cancer. COMPARISON STUDIES: The present examination has been compared to prior imaging studies dated 07/09/2021 (mammogram), 07/27/2022 (mammogram) and 09/01/2023 (mammogram). MAMMOGRAM TECHNIQUE: The study was acquired using full field digital technology and interpreted from soft copy. Digital Breast Tomosynthesis (DBT) images were obtained and used to assist in the interpretation of this examination. MAMMOGRAM FINDINGS: There are scattered areas of fibroglandular density. No suspicious masses, calcifications or other abnormalities are seen in either breast. There are no significant interval changes. IMPRESSION IMPRESSION: There is no mammographic evidence of malignancy in either breast. Routine screening mammogram is recommended. Annual mammogram will be due in 1 year. BI-RADS Category 1: Negative RISK: Based on the Tyrer-Cuzick (TC) risk assessment model, this patient has a 2.3% lifetime risk of developing breast cancer, meaning they are at average risk for developing breast cancer. However, this is only an estimate based on available history provided on the patient's questionnaire. We encourage all patients to talk with their providers about these results, further recommendations for managing breast health, and appropriate supplemental screening options if the patient has dense breast tissue. Interpreting Radiologist: Marcin Marie M.D. Electronically signed on: 09/03/2024 Custody Officer: MARIO Transcribe Date/Time: Sep 03 2024 9:00A Dictated by: MARCIN MARIE MD This examination was interpreted and the report reviewed and electronically signed by: MARCIN MARIE MD on Sep 03 2024 12:48PM EST [facility] Radiology Study observation (narrative) [facility] DBT Breast - bilateral scree ningOrdered By: [facility] Provider on 09-03-2024 [facility] SCREENING W TOMOon 09-03 [facility] SCREENING W JAIRO * * *Final Report* * * DATE OF EXAM: Sep 03 2024 9:10AM [facility] [id number] - RAF SCREENING W JAIRO / PROCEDURE REASON: Encounter for screening mammogram for breast cancer * * * * Physician Interpretation * * * * RESULT: [facility] [place] [address] #[id number] - [facility] SCREENING W JAIRO HISTORY: 73 year-old patient seen for screening and is asymptomatic in both breasts. Patient states no personal history of breast cancer. The patient has no family history of breast cancer. COMPARISON STUDIES: The present examination has been compared to prior imaging studies dated 07/09/2021 (mammogram), 07/27/2022 (mammogram) and 09/01/2023 (mammogram). MAMMOGRAM TECHNIQUE: The study was acquired using full field digital technology and interpreted from soft copy. Digital Breast Tomosynthesis (DBT) images were obtained and used to assist in the interpretation of this examination. MAMMOGRAM FINDINGS: There are scattered areas of fibroglandular density. No suspicious masses, calcifications or other abnormalities are seen in either breast. There are no significant interval changes. IMPRESSION: There is no mammographic evidence of malignancy in either breast. Routine screening mammogram is recommended. Annual mammogram will be due in 1 year. BI-RADS Category 1: Negative RISK: Based on the Tyrer-Cuzick (TC) risk assessment model, this patient has a 2.3% lifetime risk of developing breast cancer, meaning they are at average risk for developing breast cancer. However, this is only an estimate based on available history provided on the patient's questionnaire. We encourage all patients to talk with their providers about these results, further recommendations for managing breast health, and appropriate supplemental screening options if the patient has dense breast tissue. Interpreting Radiologist: Marcin Marie M.D. Electronically signed on: 09/03/2024 Custody Officer: MARIO Transcribe Date/Time: Sep 03 2024 9:00A Dictated by: MARCIN MARIE MD This examination was interpreted and the report reviewed and electronically signed by: MARCIN MARIE MD on Sep 03 2024 12:48PM EST [id number] Normal [facility] Gastroenterology Visit Repor ton 06-06-2024 Gastroenterology Visit Report [facility] Gastroenterology [address] [place] [address] OFFICE VISIT Date of Service: 06/06/24 MR#: [id number] Acct: [id number] Name: URSULA LANE Rep #: [id number] : 1950 Provider: CARMELLA Corbin Age/Sex: 73/F Location[place] [facility] Status: Signed Intake Vital Signs 04/13/18 08:22 05/12/24 10:15 Height 5 ft 4 in 5 ft 3 in Intake Visit Reasons: 3 M FU Chief Complaint: dysphagia f/u Allergies ibandronate sodium Allergy (Severe, Verified 05/12/24 10:17) N/V/D [id number]-[id number]-AbK Reductase Inhibitor Allergy (Mild, Verified 05/12/24 10:17) myalgia alendronate sodium Allergy (Unknown, Verified 05/12/24 10:17) Other Environmental Allergies: Uncoded (seasonal) Allergy (Unknown, Verified 05/12/24 10:17) Other gatifloxacin Adverse Reaction (Unknown, Verified 05/12/24 10:17) Rash Have you fallen in the past year?: No Nurse's Note: OV 12.24 Pt here for f/u. Pt reports constipation, diarrhea, gas and bloating. Denies bloody stools, vomiting and dizziness. Pt reports her swallowing issues have improved since EGD. Continues taking omeprazole daily. Pt concerned about omeprazole affecting her kidneys since she recently was diagnosed with stage 3 kidney disease. [facility] Medical History PONV (postoperative nausea and vomiting) Wears glasses Depression Thyroid disease Arthritis Chronic kidney disease (CKD) History of renal disease Restless legs Migraine headache Syncope History of IBS Heartburn Gastric reflux Non-smoker Chronic cough History of stress test ( 2012) History of irregular heartbeat Surgical History History of cystoscopy ( 1979) History of ankle surgery History of sinus surgery ( 1999) History of cataract extraction with lens replacement Social History Smoking Status: Never smoker HPI HPI Chief Complaint: dysphagia f/u Details: URSULA LANE, is a 73 F who presents to the office today for f/u. BGI established 8.26.24 w/ difficulty swallowing for years. Has tried PPIs but was taken off by PCP due to CKD. Episodes of dysphagia 3-4 times per week. EGD 03.23.24 Non-severe reflux esophagitis with no bleeding. Biopsied. - Ectopic gastric mucosa in the upper third of the esophagus. - Medium-sized hiatal hernia. - Multiple gastric polyps. - No gross lesions in the first portion of the duodenum. OV 12..24; Pt has been doing well since her EGD. She has only had about two episodes of dysphagia since which is much improved. She continues with omeprazole 20 mg BID. She is worried about the effects of the PPI on her kidneys as she has CKD but feels she is doing well since being on it. She has also had some diarrhea after being on antibiotic for swelling in her finger but is not worried about it. She denies all other GI symptoms. ROS Const Constitutional: Positive for fatigue, headache(s) and weight change; No fever(s) ENT ENT: Positive for headache(s); No difficulty swallowing Gastro GI: Positive for bloating, change in bowel habits, diarrhea and excessive flatus; No abdominal pain, belching, change in stool character, coffee ground emesis, constipation, cramping, heartburn, difficulty swallowing, feeling full early, incontinent of stools, Vomiting blood/hematemesis, Blood in stool, loose stools, Black,tarry stools, nausea/dyspepsia, pain with swallowing, vomiting or other Musc Musculoskeletal: Positive for joint pain, joint swelling, muscle weakness and Arthritis Skin Skin: No yellowing of the eye or itchy eyes Neuro Neurology: Positive for headache(s) Psych Psychiatric: No anxiety and Positive for depression Endo Endocrine: Positive for fatigue and weight change Aller/Imm Allergy/Immunologic: No itchy eyes Ivan/Lymp Hematologic/Lymphatic: No easy bleeding or easy bruising Exam Const General: cooperative and comfortable Nutritional Appearance: average body habitus and well nourished [facility] Head: normal to inspection Ears: hearing grossly normal bilaterally Nose: external nose normal Face and sinus: normal facial exam Eyes General: appearance normal, both eyes and all related structures Neck Neck: normal visual inspection Chest Chest palpation inspection: normal inspection of the chest and normal palpation of entire chest wall Resp Effort Inspection: normal respiratory effort Auscultation: Bilateral: Clear to Auscultation Cardio Palpation: normal PMI Rate: regular rate Rhythm: regular rhythm GI Inspection: normal to inspection Auscultation: normal bowel sounds Percussion: normal to percussion Palpation: no hepatosplenomegaly Skin General: no rashes or lesions noted Ne (more content not included)... Normal [facility] CNOVon 05-07-2024 CNOV Office Visit (INTMWS ) URSULA LANE ([id number]) 1950 F CHT Date Time Provider Department 05/07/24 10:20 AM EMMA SCHULTZ During your visit today, we recorded the following information about you: Pulse Respiration Blood pressure Weight 63/minute 16/minute 124/74 61.2 kg Emma Schultz MD 05/07/2024 2:01 PM Signed Reason for Visit Patient presents with: left hand pain Ursula Lane is a 72 year old female who presents here today for Above Complaints.. Health Maintenance HEPATITIS C SCREENING DTAP,TDAP,TD(1 - Tdap) PNEUMOCOCCAL: 65+(2 - PCV) COLORECTAL CANCER SCREENING ADVANCE DIRECTIVE DISCUSSION DEPRESSION ASSESSMENT SHINGRIX VACCINE(2 of 2) HPI Reviewed her labs which are normal. Discussed her husbands condition with her. Spent times discussing the Alzheimers dementia diagnosis for her . Hypothyroidism. She is doing well on her current dose of Synthroid. Denies fatigue, cold intolerance and swelling in feet. TSH recently checked and normal. HPL: Reviewed test results with patient , takes medications regularly , does not report side effects. Conscious to avoid red meats, full fat dairy and its by products. Exercising 3 to 5 times a week. HTN: BP controlled today. Checks BP at home. Compliant with medications. Denies any chest pain, palpitations, SOB, swelling in the feet. Careful with diet to avoid salt, trying to eat more fruits and vegetables, exercises regularly She will get me a copy of her living will and advance directives. Had EGD in March of 2024: and needs a repeat in a years time. 05/06/2024: 3 days ago on Tuesday, she noticed as she woke up in the morning, pain in the left hand, specifically when she is flexing her DIP joints. 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 No problem-specific Assessment AND Plan notes found for this encounter. PAST MEDICAL HISTORY Diagnosis Date Disorder of thyroid Irregular heart beat Migraine, intractable No past surgical history on file. No family history on file. Social History Tobacco Use Smoking status: Never Smokeless tobacco: Never Vaping Use Vaping status: Never Used Substance Use Topics Alcohol use: Yes Alcohol/week: 1.0 standard drink of alcohol Types: 1 Glasses of Wine (5oz) per week Comment: at dinner Drug use: Never Past medical history, appointments, medications, allergies reviewed. Pertinent Lab/Diagnostic Studies are reviewed and discussed today Current Outpatient Medications: omeprazole (PRILOSEC) 20 mg capsule levothyroxine (LEVOXYL) 50 mcg tablet rosuvastatin (CRESTOR) 10 mg tablet benzonatate (TESSALON PERLE) 100 mg capsule acebutolol (SECTRAL) 200 mg capsule SUMAtriptan (IMITREX) 20 mg/actuation nasal spray pantoprazole DR (PROTONIX) 20 mg tablet albuterol HFA (VENTOLIN HFA) 90 mcg/actuation inhaler azelastine 0.1% nasal spray niacin (NIACIN) 500 mg tablet lecithin 1,000 mg chew ubidecarenone Q-10 (COENZYME Q-10) 10 mg cap VIT D3-FOLIC [id number] ORAL GAMMA-AMINOBUTYRIC ACID, BULK, MISC polyethylene glycol 3350 (MIRALAX ORAL) glucosam/chond-msm1/C/ castro/bor ([id number]-CUNOY-NUU COMPLEX ORAL) magnesium glycinate (MAG GLYCINATE ORAL) Review of Systems CONSTITUTIONAL: No fevers, chills night sweats, unintended weight loss CARDIOVASCULAR: No chest pain, dyspnea, palpitations, orthopnea, PND, ankle edema. PULM: No dyspnea, unexplained cough. GI: No dysphagia/odynophagia, problematic reflux, constipation, diarrhea, changes in stool habits, hematochezia, melena. : No new urinary complaints, including dysuria, gross hematuria or pyuria. NEURO: No new balance problems, peripheral weakness/paresthesias or numbness of concern. Physical Exam BP 124/74 Pulse 63 Resp 16 Wt 61.2 kg (135 lb) BMI 23.17 kg/m? General appearance: Well appearing, alert, in no acute distress, well nourished. Skin: Skin color, texture, turgor normal, no suspicious rashes or lesions Head: Normocephalic, no masses, lesions, tenderness or abnormalities Eyes: Anicteric sclera. Pupils are equally round and reactive to light. Extraocular movements are intact. Hand: pain in the 2nd to 5 th DIP Joints when completely flexed, she has so much pain that she cannot flex,. It. ASSESSMENT/PLAN: 1. Tendinitis - ICD9: 726.90, ICD10: M77.9 . Trial of prednisone. Went over the side effect profile for the drug with the patient, , discussed appropriate concerns , alternatives and benefits of the drug, - PREDNISONE 10 MG TABLET MD Antoine Altamirano Chitra, MD 05/07/2024 11:06 AM Signed Take the prednisone in the morning Take it after food You may have some changes in sugars, appetite and water retention, it usually subsides once we are done with the medication. Allergies As of Date: 05/07/2024 Noted A (more content not included)... [facility] URSULA LANE ([id number]) 1950 F T Date Time Provider Department 05/07/24 EMMA SCHULTZ INTYaritzaWS During your visit today, we recorded the following information about you: Layla Colvin LPN 05/07/2024 8:38 AM Signed Pt called in to report now her left hand is swelling and painful, especially her ring finger x 2 days. This started Tuesday05/06/24. Pt has iced and took 2 aleve last night and 1 aleve this am. Pt reports her right hand was swollen and painful, red an hot x 1 week earlier. With the right hand all symptoms have resolved except a little pain still there. Pt denies SOB, chest pain, difficulty breathing. Pt scheduled for an apt today with provider/team. Layla Colvin LPN Allergies As of Date: 05/07/2024 Noted Allergy Reaction BONIVA (IBANDRONATE) 08/21/2021 14 - Other: See Comments Comments: Was so down and out for 4 weeks she does not want the medication FOSAMAX (ALENDRONATE) 08/21/2021 14 - Other: See Comments Comments: She was down for a month after taking them . Just did not tolerate them at all [id number] REDUCTASE INHIBIT*08/21/2021 17 - Myalgia Comments: Restless legs. Date Reviewed: 04/26/2024 Reviewed by: Jae Odonnell LPN - Fully Assessed Reason for Visit: Future Appointment [256] Prescriptions as of 05/07/2024 - omeprazole (PRILOSEC) 20 mg capsule Take 1 capsule by mouth every 12 hours. - levothyroxine (LEVOXYL) 50 mcg tablet Take 1 tablet by mouth once daily. - rosuvastatin (CRESTOR) 10 mg tablet Take 1 tablet by mouth once daily. - benzonatate (TESSALON PERLE) 100 mg capsule Take 2 capsules by mouth three times a day as needed. - acebutolol (SECTRAL) 200 mg capsule Take 1 capsule by mouth two times a day. - SUMAtriptan (IMITREX) 20 mg/actuation nasal spray Use 1 [place] in the nose as needed. - pantoprazole DR (PROTONIX) 20 mg tablet Take 1 tablet by mouth daily before breakfast. Take on empty stomach, 1/2 hr before meal. - albuterol HFA (VENTOLIN HFA) 90 mcg/actuation inhaler Inhale 2 Puffs as instructed every 4 hours as needed for wheezing/shortness of breath. - azelastine 0.1% nasal spray Use 1 [place] in each nostril two times a day. - niacin (NIACIN) 500 mg tablet Take 500 mg by mouth daily with breakfast. - lecithin 1,000 mg chew Take 600 mg by mouth once daily. - ubidecarenone Q-10 (COENZYME Q-10) 10 mg cap Take by mouth twice daily. - VIT D3-FOLIC [id number] ORAL Take by mouth. - GAMMA-AMINOBUTYRIC ACID, BULK, MISC - polyethylene glycol 3350 (MIRALAX ORAL) Take by mouth once daily. - glucosam/chond-msm1/C/ castro/bor ([id number]-SBNAF-AER COMPLEX ORAL) Take by mouth once daily. - magnesium glycinate (MAG GLYCINATE ORAL) Take by mouth once daily. Problem List As Of Date 05/07/2024 Noted Resolved Hand arthritis [M19.049] 06/10/2022 Degenerative disc disease, cervical [M50.30] 01/03/2023 Cervical spondylosis [M47.812] 01/03/2023 Acute pain of right shoulder [M25.511] 11/15/2023 RUE weakness [R29.898] 11/15/2023 Encounter Status:Closed by LAYLA COLVIN on 05/07/24 Normal [facility] CNOVon 04-26-2024 CNOV Office Visit (INTMWS ) URSULA LANE ([id number]) 1950 F CHT Date Time Provider Department 04/26/24 9:00 AM EMMA SCHULTZ INTMWS During your visit today, we recorded the following information about you: Pulse Blood pressure Weight 70/minute 112/72 61.5 kg Emma Schultz MD 04/26/2024 12:48 PM Signed Reason for Visit Patient presents with: F/U [address] is a 72 year old female who presents here today for Above Complaints.. Health Maintenance HEPATITIS C SCREENING DTAP,TDAP,TD(1 - Tdap) PNEUMOCOCCAL: 65+(2 - PCV) COLORECTAL CANCER SCREENING ADVANCE DIRECTIVE DISCUSSION DEPRESSION ASSESSMENT SHINGRIX VACCINE(2 of 2) HPI Reviewed her labs which are normal. Discussed her husbands condition with her. Spent times discussing the Alzheimers dementia diagnosis for her . Hypothyroidism. She is doing well on her current dose of Synthroid. Denies fatigue, cold intolerance and swelling in feet. TSH recently checked and normal. HPL: Reviewed test results with patient , takes medications regularly , does not report side effects. Conscious to avoid red meats, full fat dairy and its by products. Exercising 3 to 5 times a week. HTN: BP controlled today. Checks BP at home. Compliant with medications. Denies any chest pain, palpitations, SOB, swelling in the feet. Careful with diet to avoid salt, trying to eat more fruits and vegetables, exercises regularly She will get me a copy of her living will and advance directives. Had EGD in March of 2024: and needs an repeat in a years time. No problem-specific Assessment AND Plan notes found for this encounter. PAST MEDICAL HISTORY Diagnosis Date Disorder of thyroid Irregular heart beat Migraine, intractable No past surgical history on file. No family history on file. Social History Tobacco Use Smoking status: Never Smokeless tobacco: Never Vaping Use Vaping status: Never Used Substance Use Topics Alcohol use: Yes Alcohol/week: 1.0 standard drink of alcohol Types: 1 Glasses of Wine (5oz) per week Comment: at dinner Drug use: Never Past medical history, appointments, medications, allergies reviewed. Pertinent Lab/Diagnostic Studies are reviewed and discussed today Current Outpatient Medications: omeprazole (PRILOSEC) 20 mg capsule levothyroxine (LEVOXYL) 50 mcg tablet rosuvastatin (CRESTOR) 10 mg tablet benzonatate (TESSALON PERLE) 100 mg capsule acebutolol (SECTRAL) 200 mg capsule SUMAtriptan (IMITREX) 20 mg/actuation nasal spray albuterol HFA (VENTOLIN HFA) 90 mcg/actuation inhaler azelastine 0.1% nasal spray niacin (NIACIN) 500 mg tablet lecithin 1,000 mg chew ubidecarenone Q-10 (COENZYME Q-10) 10 mg cap polyethylene glycol 3350 (MIRALAX ORAL) glucosam/chond-msm1/C/ castro/bor ([id number] COMPLEX ORAL) magnesium glycinate (MAG GLYCINATE ORAL) pantoprazole DR (PROTONIX) 20 mg tablet VIT D3-FOLIC [id number] ORAL GAMMA-AMINOBUTYRIC ACID, BULK, MISC Review of Systems CONSTITUTIONAL: No fevers, chills night sweats, unintended weight loss CARDIOVASCULAR: No chest pain, dyspnea, palpitations, orthopnea, PND, ankle edema. PULM: No dyspnea, unexplained cough. GI: No dysphagia/odynophagia, problematic reflux, constipation, diarrhea, changes in stool habits, hematochezia, melena. : No new urinary complaints, including dysuria, gross hematuria or pyuria. NEURO: No new balance problems, peripheral weakness/paresthesias or numbness of concern. Physical Exam BP 112/72 (BP Site: Left Arm) Pulse 70 Wt 61.5 kg (135 lb 9.6 oz) SpO2 99% BMI 23.28 kg/m? General appearance: Well appearing, alert, in no acute distress, well nourished. Skin: Skin color, texture, turgor normal, no suspicious rashes or lesions Head: Normocephalic, no masses, lesions, tenderness or abnormalities Eyes: Anicteric sclera. Pupils are equally round and reactive to light. Extraocular movements are intact. Lungs: Lungs clear to auscultation. No wheezing, rhonchi, rales Heart: RRR without murmur, gallop, or rubs. Extremities: No deformities, edema, skin discoloration, clubbing or cyanosis. Good capillary refill. ASSESSMENT/PLAN: 1. Mixed hyperlipidemia - ICD9: 272.2, ICD10: E78.2 (primary diagnosis) - Controlled - Counseled on healthy diet and regular exercise 2. Encounter for screening mammogram for breast cancer - ICD9: V76.12, ICD10: Z12.31 - Encouraged monthly BSE - Follow up for annual exam in one year. - RAF SCREENING W JAIRO 3. Irregular heart rate - ICD9: 427.9, ICD10: I49.9 Cont the atenolol. 4. Hypothyroidism, unspecified type - ICD9: 244.9, ICD10: E03.9 - Instructed patient on importance of taking on an empty stomach either first thing in the morning or at bedtime. 5. Stewart's esophagus with dysplasia - ICD9: 530.85, ICD10: K22.719 Repeat colonoscopy in mar 2024 (more content not included)... Normal [facility] XR Shoulder - right 4 Viewso n 10-27-2023 IMPRESSION: No acute osseous abnormality. Degenerative disease of the right shoulder. Custody Officer: PSCB Transcribe Date/Time: Oct 27 2023 4:28P Dictated by : COLLIN MICHAEL MD This examination was interpreted and the report reviewed and electronically signed by: COLLIN MICHAEL MD on Oct 27 2023 4:30PM [facility] DIVISION OF RADIOLOGY * * *Final Report* * * DATE OF EXAM: Oct 24 2023 2:31PM WOX [id number] - XR SHLDR 4V AP/DENIZ/LAT/OUTLET RT / PROCEDURE REASON: multiple diagnoses * * * * Physician Interpretation * * * * EXAMINATION: XR SHLDR 4V AP/DENIZ/LAT/OUTLET RT CLINICAL HISTORY: Right shoulder pain Technique: XR SHLDR 4V AP/DENIZ/LAT/OUTLET RT -- RIGHT with 4 views on 4 images Comparison: None RESULT: No acute fracture or dislocation. Mild to moderate glenohumeral joint space narrowing with marginal osteophytes. DIVISION OF RADIOLOGY Provider, [facility] - 10/27/2023 * * *Final Report* * * DATE OF EXAM: Oct 24 2023 2:31PM WOX 5605 - XR SHLDR 4V AP/DENIZ/LAT/OUTLET RT / PROCEDURE REASON: multiple diagnoses * * * * Physician Interpretation * * * * EXAMINATION: XR SHLDR 4V AP/DENIZ/LAT/OUTLET RT CLINICAL HISTORY: Right shoulder pain Technique: XR SHLDR 4V AP/DENIZ/LAT/OUTLET RT -- RIGHT with 4 views on 4 images Comparison: None RESULT: No acute fracture or dislocation. Mild to moderate glenohumeral joint space narrowing with marginal osteophytes. IMPRESSION IMPRESSION: No acute osseous abnormality. Degenerative disease of the right shoulder. Custody Officer: [facility] Transcribe Date/Time: Oct 27 2023 4:28P Dictated by : COLLIN MICHAEL MD This examination was interpreted and the report reviewed and electronically signed by: COLLIN MICHAEL MD on Oct 27 2023 4:30PM EST [facility] XR Shoulder - right 4 ViewsO rdered By: Cc Provider on 10-27-2023 [facility] CBC W Auto Differential pane l (Bld)on 10-24-2023 Basophils (Bld) [#/Vol] 0.07 10*3/uL [facility] Basophils/100 WBC (Bld) 1.2 % [facility] Differential cell count method Nom (Bld) Auto [facility] Eosinophils (Bld) [#/Vol] 0.20 10*3/uL [facility] Eosinophils/100 WBC (Bld) 3.4 % [facility] Erythrocyte distribution width (RBC) [Ratio] 13.7 % 11.5 - 15.0 % [facility] Hematocrit (Bld) [Volume fraction] 39.6 % 36.0 - 46.0 % [facility] Hemoglobin (Bld) [Mass/Vol] 12.6 g/dL 11.5 - 15.5 g/dL [facility] Immature granulocytes (Bld) [#/Vol] [facility] Immature granulocytes/100 WBC (Bld) 0.3 % [facility] Lymphocytes (Bld) [#/Vol] 2.38 10*3/uL [facility] Lymphocytes/100 WBC (Bld) 39.9 % [facility] MCH (RBC) [Entitic mass] 29.8 pg 26.0 - 34.0 pg [facility] MCHC (RBC) [Mass/Vol] 31.8 g/dL 30.5 - 36.0 g/dL [facility] MCV (RBC) [Entitic vol] 93.6 fL 80.0 - 100.0 fL [facility] Monocytes (Bld) [#/Vol] 0.49 10*3/uL [facility] Monocytes/100 WBC (Bld) 8.2 % [facility] Neutrophils (Bld) [#/Vol] 2.80 10*3/uL [facility] Neutrophils/100 WBC (Bld) 47.0 % [facility] Nucleated RBC (Bld) [#/Vol] [facility] Nucleated RBC/100 WBC (Bld) [Ratio] 0.0 % /100 WBC [facility] Platelet mean volume (Bld) [Entitic vol] 10.6 fL 9.0 - 12.7 fL [facility] Platelets (Bld) [#/Vol] 185 10*3/uL [facility] RBC (Bld) [#/Vol] 4.23 10*6/uL 3.90 - 5.2 0 m/uL [facility] WBC (Bld) [#/Vol] 5.96 10*3/uL [facility] Cobalamin (Vitamin B12) [Mas s/Vol]on 10-24-2023 Interpretation and review of laboratory results Abnormal [facility] Comprehensive metabolic 2000 panelon 10-24-2023 Albumin [Mass/Vol] 4.3 g/dL 3.9 - 4.9 g/dL [facility] ALP [Catalytic activity/Vol] 63 U/L 34 - 123 U/L [facility] ALT [Catalytic activity/Vol] 19 U/L 7 - 38 U/L [facility] Anion gap [Moles/Vol] 10 mmol/L 9 - 18 mmol/L [facility] AST [Catalytic activity/Vol] 26 U/L 13 - 35 U/L [facility] Bilirubin [Mass/Vol] 0.4 mg/dL 0.2 - 1 .3 mg/dL [facility] Calcium [Mass/Vol] 9.5 mg/dL 8.5 - 10. 2 mg/dL [facility] Chloride [Moles/Vol] 104 mmol/L 97 - 10 5 mmol/L [facility] CO2 [Moles/Vol] 27 mmol/L 22 - 30 mmol/L [facility] Creatinine [Mass/Vol] 0.91 mg/dL 0.58 - 0.96 mg/dL [facility] GFR/1.73 sq M.predicted among non-blacks MDRD (S/P/Bld) [Vol rate/Area] 67 mL/min/{1.73_m2} - PINF [facility] Comment on above: Estimated Glomerular Filtration Rate (eGFR) is calculated using the 2020 CKD-EPI creatinine equation. This equation utilizes serum creatinine, sex, and age as parameters. The creatinine assay has traceable calibration to isotope dilution-mass spectrometry. Refer to KDIGO guidelines for clinical interpretation. In patients with unstable renal function, e.g. those with acute kidney injury, the eGFR may not accurately reflect actual GFR. Glucose [Mass/Vol] 82 mg/dL 74 - 99 mg/dL [facility] Comment on above: The [place] Diab[employer] Association (ADA) provides guidance for cutoff values for fasting glucose and random glucose. The ADA defines fasting as no caloric intake for at least 8 hours. Fasting plasma glucose results between 100 to 125 mg/dL indicate increased risk for diabetes (prediabetes). Fasting plasma glucose results greater than or equal to 126 mg/dL meet the criteria for diagnosis of diabetes. In the absence of unequivocal hyperglycemia, results should be confirmed by repeat testing. In a patient with classic symptoms of hyperglycemia or hyperglycemic crisis, random plasma glucose results greater than or equal to 200 mg/dL meet the criteria for diagnosis of diabetes. Reference: Standards of Medical Care in Diabetes 2016, [place] [employer]. Diabetes Care. 2016.39(Suppl 1). Interpretation and review of laboratory results Normal [facility] Potassium [Moles/Vol] 3.7 mmol/L 3.7 - 5.1 mmol/L [facility] Protein [Mass/Vol] 6.6 g/dL 6.3 - 8.0 g/dL [facility] Sodium [Moles/Vol] 141 mmol/L 136 - 144 mmol/L [facility] Urea nitrogen [Mass/Vol] 17 mg/dL 7 - 21 mg/dL [facility] MAGNESIUMon 10-24-2023 Magnesium [Mass/Vol] 2.4 mg/dL High 1.7 - 2 .3 mg/dL [facility] Magnesium [Mass/Vol]on 10-23 Interpretation and review of laboratory results Abnormal [facility] No Panel Informationon 10-23 Interpretation and review of laboratory results Normal [facility] T4 FREE/FREE THYROXINEon Free T4 [Mass/Vol] 1.4 ng/dL 0.9 - 1.7 ng/dL [facility] THYROID STIMULATING HORMONEo n 10-24-2023 TSH Qn 2.030 m[IU]/L [facility] VITAMIN B12on 10-24-2023 Cobalamin (Vitamin B12) [Mass/Vol] pg/mL High 232 - 1245 pg/mL [facility] XR Shoulder - right 4 Viewso n 10-24-2023 Radiology Study observation (narrative) [facility] MG Breast Screeningon 2023 [facility] CNPNon 07-26-2023 CNPN Telephone (INTMWS) [address]RSULA L[address] ([id number]) 1950 F Date Time Provider Department 07/26/23 EMMA SCHULTZ INTMWS During your visit today, we recorded the following information about you: Lida Wilcox RN 07/26/2023 11:18 AM Signed Patient requesting referral for podiatry, if provider agreeable. Pt was seen by Jessica Concepcion CNP yesterday and patient discussed her ankle pain. Pt reports her right ankle pain is worse today and she cannot start Physical Therapy until 08/25. She would like to see podiatry soon. Please call patient with response/update. Thank you. Lida Wilcox RN 07/26/2023 3:48 PM Signed Patient notified and will call back with doffer fax number in [place]. EUSEBIO Pires Laurie Lynn, LPN 07/29/2023 11:13 AM Signed See MyChart message this was taken care of. Pt will be seeing Gladis Self. FAX: [phone]. Layla Colvin LPN Allergies As of Date: 07/26/2023 Noted Allergy Reaction BONIVA (IBANDRONATE) 08/21/2021 14 - Other: See Comments Comments: Was so down and out for 4 weeks she does not want the medication FOSAMAX (ALENDRONATE) 08/21/2021 14 - Other: See Comments Comments: She was down for a month after taking them . Just did not tolerate them at all DEWPRFD-NAC-FCG REDUCTASE INHIBIT*08/21/2021 17 - Myalgia Comments: Restless legs. Date Reviewed: 07/25/2023 Reviewed by: Perlita Ingram Ma - Fully Assessed Reason for Visit: Patient Request [1046] Primary Visit Diagnosis:Chronic pain of both ankles [M25.571, G89.29, M25.572] Other Visit Diagnosis:Foot arch pain, unspecified laterality [M79.673] Order(s):CONSULT TO PODIATRY [9034] Order #: [id number]: 1 FUTURE Prescriptions as of 07/29/2023 - doxycycline (VIBRA-TABS) 100 mg tablet Take 1 tablet by mouth two times a day for 10 days. - pantoprazole DR (PROTONIX) 20 mg tablet Take 1 tablet by mouth daily before breakfast. Take on empty stomach, 1/2 hr before meal. - albuterol HFA (VENTOLIN HFA) 90 mcg/actuation inhaler Inhale 2 Puffs as instructed every 4 hours as needed for wheezing/shortness of breath. - SUMAtriptan (IMITREX) 20 mg/actuation nasal spray Use 1 [place] in the nose as needed. - azelastine 0.1% nasal spray Use 1 [place] in each nostril two times a day. - LEVOXYL 50 mcg tablet TAKE 1 TABLET ONCE DAILY ROMAN EMPTY STOMACH FOR THYROID - rosuvastatin (CRESTOR) 10 mg tablet Take 1 tablet by mouth once daily. - acebutolol (SECTRAL) 200 mg capsule TAKE 1 CAPSULE TWICE DAILY - niacin (NIACIN) 500 mg tablet Take 500 mg by mouth daily with breakfast. - lecithin 1,000 mg chew Take 600 mg by mouth once daily. - ubidecarenone Q-10 (COENZYME Q-10) 10 mg cap Take by mouth twice daily. - VIT D3-FOLIC NLUQ-W3-S5-B12 ORAL Take by mouth. - GAMMA-AMINOBUTYRIC ACID, BULK, MISC - polyethylene glycol 3350 (MIRALAX ORAL) Take by mouth. - glucosam/chond-msm1/C/ castro/bor (WJCPXONBGDT-DRNPD-IUN COMPLEX ORAL) Take by mouth. - magnesium glycinate (MAG GLYCINATE ORAL) Take by mouth. Problem List As Of Date 07/26/2023 Noted Resolved Hand arthritis [M19.049] 06/10/2022 Degenerative disc disease, cervical [M50.30] 01/03/2023 Cervical spondylosis [M47.812] 01/03/2023 Encounter Status:Closed by LAYLA COLVIN on 07/29/23 [facility] 07-25-2023 CNOV Office Visit (INTMWS ) [address] ([id number]) 1950 F Date Time Provider Department 07/25/23 1:00 PM JESSICA CONCEPCION During your visit today, we recorded the following information about you: Pulse Respiration Blood pressure Weight 68/minute 16/minute 124/78 62.1 kg Jessica Concepcion APRN.AUTO SERVICE WRITER 07/25/2023 3:03 PM Signed CC: Patient presents with: Recheck: 6 week follow up HPI Ursula Lane is a 72 year old female who presents today for follow up on chest pain thought to be result of GERD. Was started on pantoprazole 6 weeks ago: Occasional difficulty swallowing but PPI helped immensely with coughing, chest pain, and decreased the dysphagia as well. Denies nausea, vomiting, abdominal pain, fever chills, shortness breath, or palpitations. Still wearing inserts but right ankle has ongoing aching to ankle worsening with movement of ankle. Left foot has a sharp pain when walking from arch radiating through medial side of ankle. Denies falls, twisting, injuries, weakness, injury, edema, redness or numbness. Wears shoes with good support. Also reports she has had pressure to right sided sinus cavity since this past weekend and even teeth and right ear are hurting as well. Also with yellow nasal drainage and sore throat. Had ongoing sinus infection to right maxillary sinus over 15 years ago that required 12 months of antibiotics and surgery. Feels like this is starting again. Denies wheezing, shortness of breath, fever, wheezing, or cough. Also wants to discuss she had shoe inserts for 30 years for ankle pain as ordered by podiatry. Has had worn inserts since after having coritsol injections. The inserts were the best help for group home relief. REVIEW OF SYSTEMS See HPI PAST MEDICAL HISTORY Diagnosis Date Disorder of thyroid Irregular heart beat Migraine, intractable No past surgical history on file. ALLERGIES Boniva [Ibandronate], Fosamax [Alendronate], and Zlzdwmk-Rll-Krh Reductase Inhibitors MEDICATIONS albuterol HFA (VENTOLIN HFA) 90 mcg/actuation inhaler Inhale 2 Puffs as instructed every 4 hours as needed for wheezing/shortness of breath. SUMAtriptan (IMITREX) 20 mg/actuation nasal spray Use 1 [place] in the nose as needed. azelastine 0.1% nasal spray Use 1 [place] in each nostril two times a day. pantoprazole DR (PROTONIX) 20 mg tablet Take 1 tablet by mouth daily before breakfast. Take on empty stomach, 1/2 hr before meal. LEVOXYL 50 mcg tablet TAKE 1 TABLET ONCE DAILY ROMAN EMPTY STOMACH FOR THYROID rosuvastatin (CRESTOR) 10 mg tablet Take 1 tablet by mouth once daily. acebutolol (SECTRAL) 200 mg capsule TAKE 1 CAPSULE TWICE DAILY niacin (NIACIN) 500 mg tablet Take 500 mg by mouth daily with breakfast. lecithin 1,000 mg chew Take 600 mg by mouth once daily. ubidecarenone Q-10 (COENZYME Q-10) 10 mg cap Take by mouth twice daily. VIT D3-FOLIC KHIX-F6-C1-B12 ORAL Take by mouth. GAMMA-AMINOBUTYRIC ACID, BULK, MISC polyethylene glycol 3350 (MIRALAX ORAL) Take by mouth. glucosam/chond-msm1/C/ castro/bor (WIHYHRPCNSJ-DITBS-MEE COMPLEX ORAL) Take by mouth. magnesium glycinate (MAG GLYCINATE ORAL) Take by mouth. No family history on file. Social History Tobacco Use Smoking status: Never Smokeless tobacco: Never Vaping Use Vaping Use: Never used Substance Use Topics Alcohol use: Yes Alcohol/week: 1.0 standard drink of alcohol Types: 1 Glasses of Wine (5oz) per week Comment: at dinner Drug use: Never PHYSICAL EXAM BP 124/78 Pulse 68 Resp 16 Wt 62.1 kg (137 lb) SpO2 96% BMI 23.52 kg/m? General Appearance: well appearing, in no acute distress, alert Skin: Skin color, texture, turgor normal for age; Eyes: conjunctiva pink and moist, no icterus, sclera white, non-injected Ears: external ears normal to inspection and palpation, canals clear, Left tympanic membrane normal. , Right tympanic membrane normal Nose/sinus: Nares normal. Septum midline. Mucosa normal. No drainage. Sinus tenderness reported to right maxillary sinus Neck: Thyroid normal size and symmetric without palpable nodules, Neck supple, No adenopathy Lymph nodes: No cervical lymphadenopathy and No supraclavicular lymphadenopathy Lungs: Lungs clear to auscultation. No wheezing, rhonchi, rales. Heart: RRR without murmur, gallop, or rubs. No ectopy BLE Extremities: No deformities, edema, skin discoloration, clubbing or cyanosis. Good capillary refill. Pulses palpable Bilateral ankles without edema or redness. Full ROM bur report some pain to rotation of right ankle. Tenderness to bilateral foot arches. Health maintenance reviewed with patient: Advance Directive Discussion due on 07/04/2023 Depression Assessment due on 07/04/2023 Mammogram Screening due on 07/27/2023 DTaP,Tdap,Td Vaccine(1 - Tdap) due on 06/10/2024 Hepatitis C Screening due on 06/10/2024 Pneumococcal Vaccine: 65+ (more content not included)... Normal [facility] XR Chest PA and Lateralon IMPRESSION: Unremarkable exam with no acute radiographic abnormality. Custody Officer: PSCMaxi Transcribe Date/Time: Jun 11 2023 12:21P Dictated by : SHAMAR LINDSEY MD This examination was interpreted and the report reviewed and electronically signed by: SHAMAR LINDSEY MD on Jun 11 2023 12:22PM [facility] DIVISION OF RADIOLOGY * * *Final Report* * * DATE OF EXAM: Jun 10 2023 9:45AM WOX 5291 - XR CHEST 2V FRONTAL/LAT / PROCEDURE REASON: multiple diagnoses * * * * Physician Interpretation * * * * EXAMINATION: CHEST RADIOGRAPH (2 VIEW FRONTAL & LATERAL) CLINICAL HISTORY: Chest pain, unspecified type Chronic cough MQ: XC2_6 EXAM DATE/TIME: 06/10/2023 9:45 AM COMPARISON: No relevant prior studies available. RESULT: Lines, tubes, and devices: None. Lungs and pleura: No consolidation. No lung mass. No pleural effusion. No pneumothorax. Cardiomediastinal silhouette: Normal cardiomediastinal silhouette. Bones and soft tissues: Unremarkable. DIVISION OF RADIOLOGY Provider, [facility] - 06/11/2023 * * *Final Report* * * DATE OF EXAM: Jun 10 2023 9:45AM WOX 5291 - XR CHEST 2V FRONTAL/LAT / PROCEDURE REASON: multiple diagnoses * * * * Physician Interpretation * * * * EXAMINATION: CHEST RADIOGRAPH (2 VIEW FRONTAL & LATERAL) CLINICAL HISTORY: Chest pain, unspecified type Chronic cough MQ: XC2_6 EXAM DATE/TIME: 06/10/2023 9:45 AM COMPARISON: No relevant prior studies available. RESULT: Lines, tubes, and devices: None. Lungs and pleura: No consolidation. No lung mass. No pleural effusion. No pneumothorax. Cardiomediastinal silhouette: Normal cardiomediastinal silhouette. Bones and soft tissues: Unremarkable. IMPRESSION IMPRESSION: Unremarkable exam with no acute radiographic abnormality. Custody Officer: PSCB Transcribe Date/Time: Jun 11 2023 12:21P Dictated by : SHAMAR LINDSEY MD This examination was interpreted and the report reviewed and electronically signed by: SHAMAR LINDSEY MD on Jun 11 2023 12:22PM EST [facility] XR Chest PA and LateralOrder ed By: Ccf Provider on 06-11-2023 [facility] CNOVon 06-10-2023 CNOV Office Visit (INTMWS ) [address]UL[address] L[address] ([id number]) 1950 F Date Time Provider Department 06/10/23 8:40 AM JESSICA CONCEPCION INTMJANINA During your visit today, we recorded the following information about you: Pulse Respiration Blood pressure Weight 64/minute 16/minute 120/76 61.7 kg Jessica Concepcion APRN.AUTO SERVICE WRITER 06/10/2023 9:39 AM Signed CC: Patient presents with: F/U [address] is a 72 year old female who presents today for routine follow up. Was on collagen for her arthritis and stopped by PCP over 6 months ago due to her kidney function. Would like to see if she can restart this. HLD and history of abnormal Rhythm/palpitations: Takes medication as ordered. Has had intermittent left sided chest sharp pain over the past 3 weeks. Will occur when she is in bed. Also with ongoing difficulty swallowing when eating dry foods. Will have to get water to help it go down. Does have chronic constipation she uses miralax for. Had a cardiac work up over 40 years ago at [facility] for palpitations and skipped beats but results unavailable. Patient felt it was ventricular fibrillation" but was not shocked back in rhythm so unsure. Denies diaphoresis, syncope, weakness, nausea, vomiting, palpitations, edema, fever, chills, or shortness of breath. Reports she has a persistent nonproductive cough and morning headaches. Can occur at night, in the morning or even during the day. Will get hoarse from cough. Does have sinus draianage she thinks is due to allergies. Has had this for about 6 months. Feels she sometimes wheezes when the cough is bad. REVIEW OF SYSTEMS See HPI PAST MEDICAL HISTORY Diagnosis Date Disorder of thyroid Irregular heart beat Migraine, intractable No past surgical history on file. ALLERGIES Boniva [Ibandronate], Fosamax [Alendronate], and Zkvglpq-Sid-Zts Reductase Inhibitors MEDICATIONS LEVOXYL 50 mcg tablet TAKE 1 TABLET ONCE DAILY ROMAN EMPTY STOMACH FOR THYROID SUMAtriptan (IMITREX) 20 mg/actuation nasal spray Use 1 [place] in the nose as needed. rosuvastatin (CRESTOR) 10 mg tablet Take 1 tablet by mouth once daily. acebutolol (SECTRAL) 200 mg capsule TAKE 1 CAPSULE TWICE DAILY azelastine (ASTELIN) 0.1% nasal spray Use 1 [place] in each nostril twice daily. niacin (NIACIN) 500 mg tablet Take 500 mg by mouth daily with breakfast. lecithin 1,000 mg chew Take 600 mg by mouth once daily. ubidecarenone Q-10 (COENZYME Q-10) 10 mg cap Take by mouth twice daily. VIT D3-FOLIC IEPV-O6-Q8-B12 ORAL Take by mouth. GAMMA-AMINOBUTYRIC ACID, BULK, MISC polyethylene glycol 3350 (MIRALAX ORAL) Take by mouth. glucosam/chond-msm1/C/ castro/bor (ABNQYZUUQAQ-AGIZB-NXT COMPLEX ORAL) Take by mouth. magnesium glycinate (MAG GLYCINATE ORAL) Take by mouth. albuterol HFA (VENTOLIN HFA) 90 mcg/actuation inhaler Inhale 2 Puffs as instructed every 4 hours as needed for wheezing/shortness of breath. No family history on file. Social History Tobacco Use Smoking status: Never Smokeless tobacco: Never Vaping Use Vaping Use: Never used Substance Use Topics Alcohol use: Yes Alcohol/week: 1.0 standard drink of alcohol Types: 1 Glasses of Wine (5oz) per week Comment: at dinner Drug use: Never PHYSICAL EXAM BP 120/76 Pulse 64 Resp 16 Wt 61.7 kg (136 lb) SpO2 99% BMI 23.34 kg/m? General Appearance: well appearing, in no acute distress, alert Skin: Skin color, texture, turgor normal for age; Eyes: conjunctiva pink and moist, no icterus, sclera white, non-injected Nose/sinus: Nares normal. Septum midline. Mucosa normal. No drainage., No sinus tenderness Neck: Thyroid normal size and symmetric without palpable nodules, Neck supple, No adenopathy Oropharynx: tongue midline and normal, soft palate, uvula, and tonsils normal, palpation of salivary glands negative, Lymph nodes: No cervical lymphadenopathy and No supraclavicular lymphadenopathy Lungs: Lungs clear to auscultation. No wheezing, rhonchi, rales. Heart: RRR without murmur, gallop, or rubs. No ectopy Abdomen: Abdomen soft, non-tender. Bowel sounds normal. No masses, organomegaly Health maintenance reviewed with patient: Hepatitis C Screening Never done DTaP,Tdap,Td Vaccine(1 - Tdap) due on 09/15/2005 Pneumococcal Vaccine: 65+(2 - PCV) due on 03/28/2021 Colorectal Cancer Screening due on 01/30/2022 Advance Directive Discussion due on 07/04/2022 Mammogram Screening due on 07/27/2023 Annual PCP Team Chronic Disease Visit due on 12/10/2023 Diabetes Screening due on 05/19/2026 Lipid Screening due on 05/19/2028 Bone Density Screening Completed Influenza Vaccine Completed Depression Assessment Completed RSV Vaccine Completed Shingrix Vaccine Completed Covid-19 Vaccine Completed EKG Interpretation: RHYTHM: Normal sinus rhythm at 61 beats per minute AXIS: Normal axis INTERVALS: Normal UT interval (more content not included)... Normal [facility] ECG COMPLETEon 06-10-2023 ECG COMPLETE Ventricular Rate : 6 1 BPM Atrial Rate : 61 BPM P-R Interval : 166 ms QRS Duration : 82 ms Q-T Interval : 430 ms QTC Calculation(Bazett) : 432 ms Calculated P [place] : 27 degrees Calculated R [place] : 49 degrees Calculated T [place] : 51 degrees NORMAL SINUS RHYTHM NORMAL ECG Confirmed by TWYLA DUDLEY D.O. ([id number]) on 06/17/2023 1:26:29 PM NAME : URSULA LANE PID : [id number] : 1950 Gender : Female Race : ORD : [id number] Procedure Date : Jun 10 2023 08:55:23 Edit Date : Dec 15 2023 13:26:30 Diagnosis: NORMAL SINUS RHYTHM NORMAL ECG Confirmed by TWYLA DUDLEY D.O. ([id number]) on 06/17/2023 1:26:29 PM Test Reason : R07.9 Chest pain, unspecified type Location : 185 : [facility] Overread By : TWYLA DUDLEY D.O. Edited By : TWYLA DUDLEY D.O. Referred By : J CARLOS CACERESY Acquired by : Stephan DAO [facility] XR CHEST 2V FRONTAL/LATon XR CHEST 2V FRONTAL/LAT * * *Final Report* * * DATE OF EXAM: Jun 10 2023 9:45AM WOX [id number] - XR CHEST 2V FRONTAL/LAT / PROCEDURE REASON: multiple diagnoses * * * * Physician Interpretation * * * * EXAMINATION: CHEST RADIOGRAPH (2 VIEW FRONTAL and LATERAL) CLINICAL HISTORY: Chest pain, unspecified type Chronic cough MQ: XC2_6 EXAM DATE/TIME: 06/10/2023 9:45 AM COMPARISON: No relevant prior studies available. RESULT: Lines, tubes, and devices: None. Lungs and pleura: No consolidation. No lung mass. No pleural effusion. No pneumothorax. Cardiomediastinal silhouette: Normal cardiomediastinal silhouette. Bones and soft tissues: Unremarkable. IMPRESSION: Unremarkable exam with no acute radiographic abnormality. Custody Officer: PSCB Transcribe Date/Time: Jun 11 2023 12:21P Dictated by : SHAMAR LINDSEY MD This examination was interpreted and the report reviewed and electronically signed by: SHAMAR LINDSEY MD on Jun 11 2023 12:22PM EST [id number] Normal [facility] [facility] Chest PA and Lateralon Radiology Study observation (narrative) [facility] Comprehensive metabolic 2000 panelon 05-19-2023 Albumin [Mass/Vol] 4.4 g/dL Normal 3.9-4.9 [facility] Comment on above: Order Comment: Speci men Type: BLOOD SPECIMENOrdering Facility: [facility] Address: [address] [place] [address] Performed By: #### 3 016-3, 16446-3, 00800-2 ####[facility] LABCLIA [id number] [place] [address] [place] ALP [Catalytic activity/Vol] 64 U/L Normal 34-123 [facility] Comment on above: Order Comment: Speci men Type: BLOOD SPECIMENOrdering Facility: [facility] Address: [address] [place] [address] Performed By: #### 3 016-3, 75636-6, 47398-3 ####[facility] LABCLIA [id number] [place] [address] [place] ALT [Catalytic activity/Vol] 28 U/L Normal 7-38 [facility] Comment on above: Order Comment: Speci men Type: BLOOD SPECIMENOrdering Facility: [facility] Address: [address] [place] [address] Performed By: #### 3 016-3, 83530-0, 67897-7 ####[facility] LABCLIA [id number] [place] [address] [place] Anion gap [Moles/Vol] 11 mmol/L Normal 9-18 [facility] Comment on above: Order Comment: Speci men Type: BLOOD SPECIMENOrdering Facility: [facility] Address: [address] [place] [address] Performed By: #### 3 016-3, 20218-9, 42884-8 ####[facility] LABCLIA [id number] [place] [address] [place] AST [Catalytic activity/Vol] 38 U/L High 13-35 [facility] Comment on above: Order Comment: Speci men Type: BLOOD SPECIMENOrdering Facility: [facility] Address: [address] [place] [address] Performed By: #### 3 016-3, 66313-5, 20850-3 ####[facility] LABCLIA [id number] [place] [address] [place] Bilirubin [Mass/Vol] 0.7 mg/dL Normal 0.2-1.3 [facility] Comment on above: Order Comment: Speci men Type: BLOOD SPECIMENOrdering Facility: [facility] Address: [address] [place] [address] Performed By: #### 3 016-3, 86519-0, ####[facility] LABCLIA [id number] [place] [address] [place] Calcium [Mass/Vol] 9.6 mg/dL Normal 8.5-10.2 [facility] Comment on above: Order Comment: Speci men Type: BLOOD SPECIMENOrdering Facility: [facility] Address: [address] [place] [address] Performed By: #### 3 016-3, , ####[facility] LABCLIA [id number] [place] [address] [place] Chloride [Moles/Vol] 106 mmol/L High 97-105 [facility] Comment on above: Order Comment: Speci men Type: BLOOD SPECIMENOrdering Facility: [facility] Address: [address] [place] [address] Performed By: #### 3 016-3, , ####[facility] LABCLIA [id number] [place] [address] [place] CO2 [Moles/Vol] 27 mmol/L Normal 22-30 [facility] Comment on above: Order Comment: Speci men Type: BLOOD SPECIMENOrdering Facility: [facility] Address: [address] [place] [address] Performed By: #### 3 016-3, , ####[facility] LABCLIA [id number] [place] [address] [place] Creatinine [Mass/Vol] 0.92 mg/dL Normal 0.58-0.96 [facility] Comment on above: Order Comment: Speci men Type: BLOOD SPECIMENOrdering Facility: [facility] Address: [address] [place] [address] Performed By: #### 3 016-3, 60359-1, 38324-3 ####[facility] LABCLIA [id number] [place] [address] [place] Creatinine and Glomerular filtration rate.predicted panel (S/P/Bld) 66 mL/min/1.73m??? Normal >=60 [facility] Comment on above: Order Comment: Sabas herrmann Type: BLOOD SPECIMENOrdering Facility: [facility] Address: [address] [place] [address] Result Comment: Barbara mated Glomerular Filtration Rate (eGFR) is calculated using the 2020 CKD-EPI creatinine equation. This equation utilizes serum creatinine, sex, and age as parameters. The creatinine assay has traceable calibration to isotope dilution-mass spectrometry. Refer to KDIGO guidelines for clinical interpretation. In patients with unstable renal function, e.g. those with acute kidney injury, the eGFR may not accurately reflect actual GFR. Performed By: #### 3 016-3, 57716-4, 19651-1 ####[facility] LABIA [id number] [place] [address] [place] Glucose [Mass/Vol] 86 mg/dL Normal 74-99 [facility] Comment on above: Order Comment: Sabas montez Type: BLOOD SPECIMENOrdering Facility: [facility] Address: [address] [place] [address] Result Comment: The [place] Diabetes Association (ADA) provides guidance for cutoff values for fasting glucose and random glucose. The ADA defines fasting as no caloric intake for at least 8 hours. Fasting plasma glucose results between 100 to 125 mg/dL indicate increased risk for diabetes (prediabetes). Fasting plasma glucose results greater than or equal to 126 mg/dL meet the criteria for diagnosis of diabetes. In the absence of unequivocal hyperglycemia, results should be confirmed by repeat testing. In a patient with classic symptoms of hyperglycemia or hyperglycemic crisis, random plasma glucose results greater than or equal to 200 mg/dL meet the criteria for diagnosis of diabetes. Reference: Standards of Medical Care in Diabetes 2016, [place] [employer] Association. Diabetes Care. 2016.39(Suppl 1). Performed By: #### 3 016-3, 09457-5, 43849-8 ####[facility] LABCLIA [id number] [place] [address] [place] Potassium [Moles/Vol] 4.1 mmol/L Normal 3.7-5.1 [facility] Comment on above: Order Comment: Speci men Type: BLOOD SPECIMENOrdering Facility: [facility] Address: [address] [place] [address] Performed By: #### 3 016-3, 38866-9, 27359-9 ####[facility] LABIA [id number] [place] [address] [place] Protein [Mass/Vol] 6.8 g/dL Normal 6.3-8.0 [facility] Comment on above: Order Comment: Speci men Type: BLOOD SPECIMENOrdering Facility: [facility] Address: [address] [place] [address] Performed By: #### 3 016-3, 44358-6, 34939-4 ####[facility] LABIA [id number] [place] [address] [place] Sodium [Moles/Vol] 144 mmol/L Normal 136-144 [facility] Comment on above: Order Comment: Speci men Type: BLOOD SPECIMENOrdering Facility: [facility] Address: [address] [place] [address] Performed By: #### 3 016-3, 30962-1, 98907-7 ####[facility] LABIA [id number] [place] [id number] [place] Urea nitrogen [Mass/Vol] 17 mg/dL Normal 7-21 [facility] Comment on above: Order Comment: Speci men Type: BLOOD SPECIMENOrdering Facility: [facility] Address: [address] [place] [address] Performed By: #### 3 016-3, , ####[facility] LABCLIA [id number] [place] [address] [place] Lipid 1996 panelon 3 Cholesterol [Mass/Vol] 203 mg/dL High <200 [facility] Comment on above: Order Comment: Speci men Type: BLOOD SPECIMENOrdering Facility: [facility] Address: [address] [place] [address] Result Comment: <200 mg/dL, Desirable 200-239 mg/dL, Borderline high >239 mg/dL, High Performed By: #### 3 016-3, 08090-2, 93976-5 ####[facility] LABCLIA [id number] [address] [place] Cholesterol in HDL [Mass/Vol] 71 mg/dL Normal >39 [facility] Comment on above: Order Comment: Speci men Type: BLOOD SPECIMENOrdering Facility: [facility] Address: [address] [place] [address] Result Comment: 40-5 9 mg/dL, Acceptable >59 mg/dL, High: Negative risk factor for coronary heart disease <40 mg/dL, Low: Positive risk factor for coronary heart disease Performed By: #### 3 016-3, , 76864-5 ####[facility] LABCLIA [id number] [address] [place] Cholesterol in LDL [Mass/Vol] 112 mg/dL High <100 [facility] Comment on above: Order Comment: Speci men Type: BLOOD SPECIMENOrdering Facility: [facility] Address: [address] [place] [address] Result Comment: <100 mg/dL, Optimal 100-129 mg/dL, Near optimal/above optimal 130-159 mg/dL, Borderline high 160-189 mg/dL, High >189 mg/dL, Very high Secondary prevention optimal LDL Cholesterol levels are recommended to be < 70 mg/dL Performed By: #### 3 016-3, 70493-6, 58091-4 ####[facility] LABCLIA [id number] [place] [address] [place] Cholesterol in LDL/Cholesterol in HDL [Mass ratio] 1.58 {ratio} Normal <2.54 [facility] Comment on above: Order Comment: Sabas men Type: BLOOD SPECIMENOrdering Facility: [facility] Address: [address] [place] [address] Result Comment: Montez pfeiffer: 1. National Cholesterol Education Program ATP III Guideline At-A-Glance Quick Desk Reference: National Heart, Lung, and Blood Clark. National Institutes of Health. 2001: NIH Publication No. 01-3305. 2. An International Atherosclerosis Society position paper: global recommendations for the management of dyslipidemia: executive summary, Atherosclerosis. 2014: 232(2):410-413. Performed By: #### 3 016-3, 25980-8, 12451-5 ####[facility] LABCLIA [id number] [place] [address] [place] Cholesterol in VLDL [Mass/Vol] 20 mg/dL Normal <30 [facility] Comment on above: Order Comment: Sabas herrmann Type: BLOOD SPECIMENOrdering Facility: [facility] Address: [address] [place] [address] Performed By: #### 3 016-3, , 09658-9 ####[facility] LABCLIA [id number] [place] [address] [place] Cholesterol non HDL [Mass/Vol] 132 mg/dL High <130 [facility] Comment on above: Order Comment: Shannani men Type: BLOOD SPECIMENOrdering Facility: [facility] Address: [address] [place] [address] Result Comment: <130 mg/dL, Optimal 130-159 mg/dL, Near optimal/above optimal 160-189 mg/dL, Borderline high 190-219 mg/dL, High >219 mg/dL, Very high Secondary prevention optimal non HDL Cholesterol levels are recommended to be <100 mg/dL Performed By: #### 3 016-3, 43509-9, 23656-6 ####[facility] LABCLIA [id number] [place] [address] [place] Cholesterol.total/Cho lesterol in HDL [Mass ratio] 2.86 {ratio} Normal <5.10 [facility] Comment on above: Order Comment: Speci men Type: BLOOD SPECIMENOrdering Facility: [facility] Address: [address] [place] [address] Performed By: #### 3 016-3, 53367-6, 52015-2 ####[facility] LABIA [id number] [place] [address] [place] FASTING TIME 15 hrs Normal [facility] Comment on above: Order Comment: Speci men Type: BLOOD SPECIMENOrdering Facility: [facility] Address: [address] [place] [address] Performed By: #### 3 016-3, 17843-4, 97873-9 ####[facility] LABIA [id number] [place] [address] [place] Triglyceride [Mass/Vol] 102 mg/dL Normal <150 [facility] Comment on above: Order Comment: Speci men Type: BLOOD SPECIMENOrdering Facility: [facility] Address: [address] [place] [address] Result Comment: <150 mg/dL, Normal 150-199 mg/dL, Borderline high 200-499 mg/dL, High >499 mg/dL, Very high Performed By: #### 3 016-3, 17887-9, 07504-3 ####[facility] LABIA [id number] [place] [address] [place] TSH SerPl-aCncon 05-19-2023 TSH Qn 1.810 m[IU]/L Normal 0.270-4.200 [facility] Comment on above: Order Comment: Speci men Type: BLOOD SPECIMENOrdering Facility: [facility] Address: [address] [place] [address] Performed By: #### 3 016-3, 96239-7, 54097-8 ####[facility] KIMBERLY [id number] [place] [id number] [place] Vilma 01-12-2023 CNPN Telephone (INTMWS) [address] ([id number]) 1950 F Date Time Provider Department 01/12/23 EMMA SCHULTZ INTMWS During your visit today, we recorded the following information about you: Yamilka Stringer RN 01/12/2023 10:57 AM Signed Patient calls and states that she would like to see a grounds foreman to help with her diet. Patient wants to make sure Kidney disease does not get worse. Please review and advise, EUSEBIO Bailey Ma 01/12/2023 1:22 PM Signed Please contact to assist in scheduling. Maryam Craft 01/12/2023 2:52 PM Signed Called pt to schedule and she stated she is going to take a copy of her referral to a facility closer to her. Maryam PSS Allergies As of Date: 01/12/2023 Noted Allergy Reaction BONIVA (IBANDRONATE) 08/21/2021 14 - Other: See Comments Comments: Was so down and out for 4 weeks she does not want the medication FOSAMAX (ALENDRONATE) 08/21/2021 14 - Other: See Comments Comments: She was down for a month after taking them . Just did not tolerate them at all YOICGLY-RBW-IIM REDUCTASE INHIBIT*08/21/2021 17 - Myalgia Comments: Restless legs. Date Reviewed: 12/09/2022 Reviewed by: Jacquelyn Person LPN - Fully Assessed Reason for Visit: Referral Request [Other] Primary Visit Diagnosis:Stage 3a chronic kidney disease (HCC) [N18.31] Order(s):CONSULT TO NUTRITION THERAPY [9020] Order #: [id number]: 4 FUTURE Prescriptions as of 01/13/2023 - LEVOXYL 50 mcg tablet TAKE 1 TABLET ONCE DAILY ROMAN EMPTY STOMACH FOR THYROID - SUMAtriptan (IMITREX) 20 mg/actuation nasal spray Use 1 [place] in the nose as needed. - rosuvastatin (CRESTOR) 10 mg tablet Take 1 tablet by mouth once daily. - acebutolol (SECTRAL) 200 mg capsule TAKE 1 CAPSULE TWICE DAILY - azelastine (ASTELIN) 0.1% nasal spray Use 1 [place] in each nostril twice daily. - niacin (NIACIN) 500 mg tablet Take 500 mg by mouth daily with breakfast. - lecithin 1,000 mg chew Take 600 mg by mouth once daily. - ubidecarenone Q-10 (COENZYME Q-10) 10 mg cap Take by mouth twice daily. - VIT D3-FOLIC FAAW-P0-N9-B12 ORAL Take by mouth. - GAMMA-AMINOBUTYRIC ACID, BULK, MISC - polyethylene glycol 3350 (MIRALAX ORAL) Take by mouth. - glucosam/chond-msm1/C/ castro/bor ([id number]-GNU COMPLEX ORAL) Take by mouth. - magnesium glycinate (MAG GLYCINATE ORAL) Take by mouth. - albuterol HFA (VENTOLIN HFA) 90 mcg/actuation inhaler Inhale 2 Puffs as instructed every 4 hours as needed for wheezing/shortness of breath. 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 Comment on above: Order Comment: Speci men Type: BLOOD SPECIMENOrdering Facility: [facility] Address: [address] [place] [phone] Performed By: #### 2 4321-2 ####[facility] LABCLIA [id number] [address] [place] Calcium [Mass/Vol] 10.0 mg/dL Normal 8.5-10.2 [facility] Comment on above: Order Comment: Speci men Type: BLOOD SPECIMENOrdering Facility: [facility] Address: [address] [place] [address] Performed By: #### 2 4321-2 ####[facility] LABCLIA [id number] [place] [address] [place] Chloride [Moles/Vol] 106 mmol/L High 97-105 [facility] Comment on above: Order Comment: Speci men Type: BLOOD SPECIMENOrdering Facility: [facility] Address: [address] [place] [address] Performed By: #### 2 4321-2 ####[facility] LABCLIA [id number] [place] [address] [place] CO2 [Moles/Vol] 24 mmol/L Normal 22-30 [facility] Comment on above: Order Comment: Speci men Type: BLOOD SPECIMENOrdering Facility: [facility] Address: [address] [place], [place] [address] Performed By: #### 2 4321-2 ####[facility] LABCLIA [id number] [address] [place] Creatinine [Mass/Vol] 0.90 mg/dL Normal 0.58-0.96 [facility] Comment on above: Order Comment: Speci men Type: BLOOD SPECIMENOrdering Facility: [facility] Address: [address] [place], [place] [address] Performed By: #### 2 4321-2 ####[facility] LABCLIA [id number] [address] [place] ESTIMATED GLOMERULAR FILTRATION RATE 68 mL/min/1.73m??? Normal >=60 [facility] Comment on above: Order Comment: Speci men Type: BLOOD SPECIMENOrdering Facility: [facility] Address: [address] [place] [phone] Result Comment: Barbara mated Glomerular Filtration Rate (eGFR) is calculated using the 2020 CKD-EPI creatinine equation. This equation utilizes serum creatinine, sex, and age as parameters. The creatinine assay has traceable calibration to isotope dilution-mass spectrometry. Refer to KDIGO guidelines for clinical interpretation. In patients with unstable renal function, e.g. those with acute kidney injury, the eGFR may not accurately reflect actual GFR. Performed By: #### 2 4321-2 ####[facility] LABCLIA [id number] [place] [address] [place] Glucose [Mass/Vol] 77 mg/dL Normal 74-99 [facility] Comment on above: Order Comment: Sabas herrmann Type: BLOOD SPECIMENOrdering Facility: [facility] Address: [address] [place] [address] Result Comment: The [place] Diabetes Association (ADA) provides guidance for cutoff values for fasting glucose and random glucose. The ADA defines fasting as no caloric intake for at least 8 hours. Fasting plasma glucose results between 100 to 125 mg/dL indicate increased risk for diabetes (prediabetes). Fasting plasma glucose results greater than or equal to 126 mg/dL meet the criteria for diagnosis of diabetes. In the absence of unequivocal hyperglycemia, results should be confirmed by repeat testing. In a patient with classic symptoms of hyperglycemia or hyperglycemic crisis, random plasma glucose results greater than or equal to 200 mg/dL meet the criteria for diagnosis of diabetes. Reference: Standards of Medical Care in Diabetes 2016, [place] Diabetes [employer]. Diabetes Care. 2016.39(Suppl 1). Performed By: #### 2 4321-2 ####[facility] LABCLIA [id number] [place] [address] [place] Potassium [Moles/Vol] 4.3 mmol/L Normal 3.7-5.1 [facility] Comment on above: Order Comment: Sabas herrmann Type: BLOOD SPECIMENOrdering Facility: [facility] Address: [address] [address] Performed By: #### 2 4321-2 ####[facility] LABCLIA [id number] [place] [address] [place] Sodium [Moles/Vol] 143 mmol/L Normal 136-144 [facility] Comment on above: Order Comment: Speci men Type: BLOOD SPECIMENOrdering Facility: [facility] Address: [address] [place] [address] Performed By: #### 2 4321-2 ####[facility] LABIA [id number] [place] [address] [place] Urea nitrogen [Mass/Vol] 15 mg/dL Normal 7-21 [facility] Comment on above: Order Comment: Speci men Type: BLOOD SPECIMENOrdering Facility: [facility] Address: [address] [place] [address] Performed By: #### 2 4321-2 ####[facility] LABIA [id number] [address] [place] CNTHERAPYon 01-03-2023 CNTHERAPY OT/PT/Speech Visit (PTWS) [address] ([id number]) 1950 F Date Time Provider Department 01/03/23 11:30 AM ANDRAE DEY Date Time Provider Department Center 01/03/2023 11:30 AM [id number] DEY Reason for Visit: PT Eval [747] Primary Visit Diagnosis:Degenerative disc disease, cervical [M50.30] Other Visit Diagnosis:Cervical spondylosis [M47.812] Allergies As of Date: 01/03/2023 Noted Allergy Reaction BONIVA (IBANDRONATE) 08/21/2021 14 - Other: See Comments Comments: Was so down and out for 4 weeks she does not want the medication FOSAMAX (ALENDRONATE) 08/21/2021 14 - Other: See Comments Comments: She was down for a month after taking them . Just did not tolerate them at all HRUTXDS-YUB-JPM REDUCTASE INHIBIT*08/21/2021 17 - Myalgia Comments: Restless legs. Date Reviewed: 12/09/2022 Reviewed by: Jacquelyn Person LPN - Fully Assessed Prescriptions as of 01/03/2023 - SUMAtriptan (IMITREX) 20 mg/actuation nasal spray Use 1 [place] in the nose as needed. - levothyroxine (LEVOXYL) 50 mcg tablet Take 1 tablet by mouth once daily. Except on Tuesday take 2 pills. Take on empty stomach. For Thyroid - rosuvastatin (CRESTOR) 10 mg tablet Take 1 tablet by mouth once daily. - acebutolol (SECTRAL) 200 mg capsule TAKE 1 CAPSULE TWICE DAILY - azelastine (ASTELIN) 0.1% nasal spray Use 1 [place] in each nostril twice daily. - niacin (NIACIN) 500 mg tablet Take 500 mg by mouth daily with breakfast. - lecithin 1,000 mg chew Take 600 mg by mouth once daily. - ubidecarenone Q-10 (COENZYME Q-10) 10 mg cap Take by mouth twice daily. - VIT D3-FOLIC GGVI-R4-Q2-B12 ORAL Take by mouth. - GAMMA-AMINOBUTYRIC ACID, BULK, MISC - polyethylene glycol 3350 (MIRALAX ORAL) Take by mouth. - glucosam/chond-msm1/C/ castro/bor ([id number] COMPLEX ORAL) Take by mouth. - magnesium glycinate (MAG GLYCINATE ORAL) Take by mouth. - albuterol HFA (VENTOLIN HFA) 90 mcg/actuation inhaler Inhale 2 Puffs as instructed every 4 hours as needed for wheezing/shortness of breath. Normal [facility] [address] ([id number]) 1950 F Date Time Provider Department 12/14/22 EMMA SCHULTZ INTMWS During your visit today, we recorded the following information about you: Layla Colvin LPN 12/14/2022 11:48 AM Signed Pt calling for the followin)results of x-rays done on 12-09-22 2)regarding creatinine level pt was to increase her water intake and will recheck lab in 1 month. 3)pt reports at her last visit she was told she has stage 3 kidney disease and pt would like to know does she need an apt with a physical director before her kidney's get bad. Please advise pt. Layla Schultz MD 12/15/2022 8:14 PM Signed Please let her know that she has: Severe degenerative disc disease at C3-4, C4-5, C5-6 and C6-7. Would like to her to see pain management for injections and Physical Therapy If gfr is less than 60 we call it chronic kidney disease stage 3. Would advice to repeat tests. There is no value in seeing the nephrolgist at this time lobito before the repeat test. Staying off the NSAIDs is important. naproxen, motrin, brufen, aleve etc and contrast., adequate hydration Keeping blood pressure under control. Regards, Emma Ingram Ma 12/16/2022 9:40 AM Signed Patient notified, please schedule with Pain Management and PT. Promise Desai 12/20/2022 12:08 PM Signed Patient has been contacted and scheduled. Also supplied her with pain management phone [phone] Promise Desai Allergies As of Date: 12/14/2022 Noted Allergy Reaction BONIVA (IBANDRONATE) 08/21/2021 14 - Other: See Comments Comments: Was so down and out for 4 weeks she does not want the medication FOSAMAX (ALENDRONATE) 08/21/2021 14 - Other: See Comments Comments: She was down for a month after taking them . Just did not tolerate them at all [id number] REDUCTASE INHIBIT*08/21/2021 17 - Myalgia Comments: Restless legs. Date Reviewed: 12/09/2022 Reviewed by: Jacquelyn Person LPN - Fully Assessed Reason for Visit: results/question [Other] Primary Visit Diagnosis:Degenerative disc disease, cervical [M50.30] Other Visit Diagnosis:Cervical spondylosis [M47.812] Order(s):CONSULT TO PHYSICAL THERAPY [9032] Order #: [id number]: 1 FUTURE CONSULT TO PAIN MGT [433636] Order #: [id number]: 1 FUTURE Prescriptions as of 12/20/2022 - SUMAtriptan (IMITREX) 20 mg/actuation nasal spray Use 1 [place] in the nose as needed. - levothyroxine (LEVOXYL) 50 mcg tablet Take 1 tablet by mouth once daily. Except on Tuesday take 2 pills. Take on empty stomach. For Thyroid - rosuvastatin (CRESTOR) 10 mg tablet Take 1 tablet by mouth once daily. - acebutolol (SECTRAL) 200 mg capsule TAKE 1 CAPSULE TWICE DAILY - azelastine (ASTELIN) 0.1% nasal spray Use 1 [place] in each nostril twice daily. - niacin (NIACIN) 500 mg tablet Take 500 mg by mouth daily with breakfast. - lecithin 1,000 mg chew Take 600 mg by mouth once daily. - ubidecarenone Q-10 (COENZYME Q-10) 10 mg cap Take by mouth twice daily. - VIT D3-FOLIC RWLK-Z1-T7-B12 ORAL Take by mouth. - GAMMA-AMINOBUTYRIC ACID, BULK, MISC - polyethylene glycol 3350 (MIRALAX ORAL) Take by mouth. - glucosam/chond-msm1/C/ castro/bor ([id number]-[id number]-ZBD COMPLEX ORAL) Take by mouth. - magnesium glycinate (MAG GLYCINATE ORAL) Take by mouth. - albuterol HFA (VENTOLIN HFA) 90 mcg/actuation inhaler Inhale 2 Puffs as instructed every 4 hours as needed for wheezing/shortness of breath. 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] 06/10/2022 Encounter Status:Closed by PROMISE DESAI on 12/20/22 Normal [facility] XR Cervical spine AP and Lat eral and obliqueon 12-10-2022 IMPRESSION: DEGENERATIVE DISC DISEASE (SPONDYLOSIS), SIMILAR TO PRIOR Custody Officer: PSCB Transcribe Date/Time: Dec 10 2022 5:36P Dictated by : ECHO MONCADA MD This examination was interpreted and the report reviewed and electronically signed by: ECHO MONCADA MD on Dec 10 2022 5:37PM [facility] DIVISION OF RADIOLOGY * * *Final Report* * * DATE OF EXAM: Dec 09 2022 11:27AM WOX 5311 - XR CERVICAL 4V AP/LAT/OBL / PROCEDURE REASON: Neck pain * * * * Physician Interpretation * * * * HISTORY (as given from clinical provider): Neck pain . Additional history provided by the performing technologist (if any): PT STS IN FOR PAIN TO CSPINE. NOTICED LUMP ON BACK OF NECK LEFT SIDE A COUPLE WEEKS AGO. NO PRV SX TO NECK TECHNIQUE: XR CERVICAL 4V AP/LAT/OBL COMPARISON: 04/07/2022 RESULT: Counting reference: Craniocervical junction. Anatomic Variants: None. Anatomic alignment. Severe degenerative disc disease at C3-4, C4-5, C5-6 and C6-7. No other significant abnormality. - DIVISION OF RADIOLOGY Provider, [facility] - 12/10/2022 * * *Final Report* * * DATE OF EXAM: Dec 09 2022 11:27AM WOX 5311 - XR CERVICAL 4V AP/LAT/OBL / PROCEDURE REASON: Neck pain * * * * Physician Interpretation * * * * HISTORY (as given from clinical provider): Neck pain . Additional history provided by the performing technologist (if any): PT STS IN FOR PAIN TO CSPINE. NOTICED LUMP ON BACK OF NECK LEFT SIDE A COUPLE WEEKS AGO. NO PRV SX TO NECK TECHNIQUE: XR CERVICAL 4V AP/LAT/OBL COMPARISON: 04/07/2022 RESULT: Counting reference: Craniocervical junction. Anatomic Variants: None. Anatomic alignment. Severe degenerative disc disease at C3-4, C4-5, C5-6 and C6-7. No other significant abnormality. - IMPRESSION IMPRESSION: DEGENERATIVE DISC DISEASE (SPONDYLOSIS), SIMILAR TO PRIOR Custody Officer: PSCB Transcribe Date/Time: Dec 10 2022 5:36P Dictated by : ECHO MONCADA MD This examination was interpreted and the report reviewed and electronically signed by: ECHO MONCADA MD on Dec 10 2022 5:37PM [facility] XR Cervical spine AP and Lat eral and obliqueOrdered By: [facility] Provider on 12-10-2022 [facility] CNOVon 12-09-2022 CNOV Office Visit (INTMWS ) URSULA L[address] ([id number]) 1950 F Date Time Provider Department 12/09/22 9:40 AM EMMA SCHULTZ INTMWS During your visit today, we recorded the following information about you: Pulse Respiration Blood pressure Weight 62/minute 16/minute 118/78 60.3 kg Emma Schultz MD 12/09/2022 1:59 PM Signed Reason for Visit Patient presents with: Recheck: 6 month Complaint of b/l leg cramps, spasms in back, bump on left side of back of neck Ursula Lane is a 72 year old female who presents here today for Above Complaints.. Health Maintenance HEPATITIS C SCREENING DTAP,TDAP,TD(1 - Tdap) PNEUMOCOCCAL: 65+(2 - PCV) COLORECTAL CANCER SCREENING ADVANCE DIRECTIVE DISCUSSION DEPRESSION ASSESSMENT SHINGRIX VACCINE(2 of 2) HPI 2 nights ago the left leg spasmed out a lot. The muscles on the right side tightened up a lot. She had some back issues where her muscles and back are spasming. Has been working out doors a lot more, she does sweat sometimes. She does try to get some water in at that time She does not drink enough water. She has noticed back spasms more with the gardening She also had this similar issue with the statins which comes around after a certain amount of being on the statin. Recently everything she did, the back the legs. Using equipment in the arms, ets Patient wants to do a water regimen first. Patient should consider getting the electrolytes drinks recently. Her creat and gfr are lower than a year ago, will get another test when she is well hydrated She has been taking a little aleve at night if her bad is really hurting her. Takes it 3/4 times a month. She has tried tylenol but it does not last enough Has been doing a protein powder for a year and a half, wonder if there is more creatinine at that time. Patient does think she has some relief of the collagen peptides. Her aunt of kidney disease young. Had 2 injuries in the neck, she surgeries but she had symptoms after, currently pain but her vertebral spine seems conspiculously malaligned. No problem-specific Assessment AND Plan notes found for this encounter. PAST MEDICAL HISTORY Diagnosis Date Disorder of thyroid Irregular heart beat Migraine, intractable No past surgical history on file. No family history on file. Social History Tobacco Use Smoking status: Never Smokeless tobacco: Never Vaping Use Vaping Use: Never used Substance Use Topics Alcohol use: Yes Alcohol/week: 1.0 standard drink Types: 1 Glasses of Wine (5oz) per week Comment: at dinner Drug use: Never Past medical history, appointments, medications, allergies reviewed. Pertinent Lab/Diagnostic Studies are reviewed and discussed today Current Outpatient Medications: acebutolol (SECTRAL) 200 mg capsule levothyroxine (LEVOXYL) 50 mcg tablet rosuvastatin (CRESTOR) 10 mg tablet azelastine (ASTELIN) 0.1% nasal spray SUMAtriptan (IMITREX) 20 mg/actuation nasal spray niacin (NIACIN) 500 mg tablet lecithin 1,000 mg chew ubidecarenone Q-10 (COENZYME Q-10) 10 mg cap VIT D3-FOLIC DEIF-F9-Z5-B12 ORAL GAMMA-AMINOBUTYRIC ACID, BULK, MISC polyethylene glycol 3350 (MIRALAX ORAL) glucosam/chond-msm1/C/ castro/bor (YFCKXVZBWXA-EXZBE-YWQ COMPLEX ORAL) magnesium glycinate (MAG GLYCINATE ORAL) albuterol HFA (VENTOLIN HFA) 90 mcg/actuation inhaler aspirin 81 mg chewable tablet montelukast (SINGULAIR) 10 mg tablet Review of Systems CONSTITUTIONAL: No fevers, chills night sweats, unintended weight loss CARDIOVASCULAR: No chest pain, dyspnea, palpitations, orthopnea, PND, ankle edema. PULM: No dyspnea, unexplained cough. GI: No dysphagia/odynophagia, problematic reflux, constipation, diarrhea, changes in stool habits, hematochezia, melena. : No new urinary complaints, including dysuria, gross hematuria or pyuria. NEURO: No new balance problems, peripheral weakness/paresthesias or numbness of concern. Physical Exam BP 118/78 Pulse 62 Resp 16 Wt 60.3 kg (133 lb) SpO2 97% BMI 22.83 kg/m? General appearance: Well appearing, alert, in no acute distress, well nourished. Skin: Skin color, texture, turgor normal, no suspicious rashes or lesions Head: Normocephalic, no masses, lesions, tenderness or abnormalities Eyes: Anicteric sclera. Pupils are equally round and reactive to light. Extraocular movements are intact. Lungs: Lungs clear to auscultation. No wheezing, rhonchi, rales Heart: RRR without murmur, gallop, or rubs. Extremities: No deformities, edema, skin discoloration, clubbing or cyanosis. Good capillary refill. ASSESSMENT/PLAN: 1. Muscle spasms of both lower extremities - ICD9: 728.85, ICD10: M62.838 (primary diagnosis) ? Related to dehydration due to working out a lot and less oral intake of electrolyte. If that does not help then we can cut down the pravastatin to 2 times a week (more content not included)... Normal [facility] XR CERVICAL 4V AP/LAT/OBLon 12-09-2022 XR CERVICAL 4V AP/LAT/OBL * * *Final Report* * * DATE OF EXAM: Dec 09 2022 11:27AM WOX 5311 - XR CERVICAL 4V AP/LAT/OBL / PROCEDURE REASON: Neck pain * * * * Physician Interpretation * * * * HISTORY (as given from clinical provider): Neck pain . Additional history provided by the performing technologist (if any): PT STS IN FOR PAIN TO CSPINE. NOTICED LUMP ON BACK OF NECK LEFT SIDE A COUPLE WEEKS AGO. NO PRV SX TO NECK TECHNIQUE: XR CERVICAL 4V AP/LAT/OBL COMPARISON: 04/07/2022 RESULT: Counting reference: Craniocervical junction. Anatomic Variants: None. Anatomic alignment. Severe degenerative disc disease at C3-4, C4-5, C5-6 and C6-7. No other significant abnormality. - IMPRESSION: DEGENERATIVE DISC DISEASE (SPONDYLOSIS), SIMILAR TO PRIOR Custody Officer: CHRISTIANO Transcribe Date/Time: Dec 10 2022 5:36P Dictated by : ECHO MONCADA MD This examination was interpreted and the report reviewed and electronically signed by: ECHO MONCADA MD on Dec 10 2022 5:37PM EST [id number] Normal [facility] XR Cervical spine AP and Lat eral and obliqueon 12-09-2022 Radiology Study observation (narrative) [facility] 25(OH)D3 SerPl-mCncon 2022 25-hydroxyvitamin D3 [Mass/Vol] 52.5 ng/mL Normal 31.0-80.0 [facility] Comment on above: Order Comment: Speci men Type: BLOOD SPECIMENOrdering Facility: [facility] Address: [address] [place] [address] Result Comment: Clas sification of 25 [place] Vitamin D status: Deficiency/Insufficiency: < or = 30 ng/ml. Sufficiency/Optimal Levels: 31-80 ng/mL Toxicity: > 100 ng/mL. Test performed by chemiluminescent immunoassay. Performed By: #### 1 989-3 ####[facility] LABCLIA [id number] [address] [place] [address] [address] [place] CBC W Auto Differential pane l (Bld)on 11-30-2022 Basophils (Bld) [#/Vol] 0.06 10*3/uL <0.11 k/uL [facility] Basophils/100 WBC (Bld) 1.2 % [facility] Differential cell count method Nom (Bld) Auto [facility] Eosinophils (Bld) [#/Vol] 0.21 10*3/uL <0.46 k/uL [facility] Eosinophils/100 WBC (Bld) 4.1 % [facility] Erythrocyte distribution width (RBC) [Ratio] 13.1 % 11.5 - 15.0 % [facility] Hematocrit (Bld) [Volume fraction] 39.9 % 36.0 - 46.0 % [facility] Hemoglobin (Bld) [Mass/Vol] 12.7 g/dL 11.5 - 15.5 g/dL [facility] Immature granulocytes (Bld) [#/Vol] <0.10 k/uL [facility] Immature granulocytes/100 WBC (Bld) 0.2 % [facility] Lymphocytes (Bld) [#/Vol] 1.87 10*3/uL 1.00 - 4.00 k/uL [facility] Lymphocytes/100 WBC (Bld) 36.5 % [facility] MCH (RBC) [Entitic mass] 29.6 pg 26.0 - 34.0 pg [facility] MCHC (RBC) [Mass/Vol] 31.8 g/dL 30.5 - 36.0 g/dL [facility] MCV (RBC) [Entitic vol] 93.0 fL 80.0 - 100.0 fL [facility] Monocytes (Bld) [#/Vol] 0.36 10*3/uL <0.87 k/uL [facility] Monocytes/100 WBC (Bld) 7.0 % [facility] Neutrophils (Bld) [#/Vol] 2.62 10*3/uL 1.45 - 7.50 k/uL [facility] Neutrophils/100 WBC (Bld) 51.0 % [facility] Nucleated RBC (Bld) [#/Vol] <0.01 k/uL [facility] Nucleated RBC/100 WBC (Bld) [Ratio] 0.0 /100 WBC [facility] Platelet mean volume (Bld) [Entitic vol] 10.9 fL 9.0 - 12.7 fL [facility] Platelets (Bld) [#/Vol] 166 10*3/uL 150 - 400 k/uL [facility] RBC (Bld) [#/Vol] 4.29 10*6/uL 3.90 - 5.2 0 m/uL [facility] WBC (Bld) [#/Vol] 5.13 10*3/uL 3.70 - 11. 00 k/uL [facility] Basophils (Bld) [#/Vol] 0.06 10*3/uL Normal <0.11 [facility] Comment on above: Order Comment: Speci men Type: BLOOD SPECIMENOrdering Facility: [facility] Address: [address] [place] [address] Performed By: #### 5 7021-8 ####[facility] LABCLIA [id number] [place] [address] [place] Basophils/100 WBC (Bld) 1.2 % Normal [facility] Comment on above: Order Comment: Speci men Type: BLOOD SPECIMENOrdering Facility: [facility] Address: [address] [place] [address] Performed By: #### 5 7021-8 ####[facility] LABCLIA [id number] [place] [address] [place] Differential cell count method Nom (Bld) Auto Normal [facility] Comment on above: Order Comment: Speci men Type: BLOOD SPECIMENOrdering Facility: [facility] Address: [address] [address] Performed By: #### 5 7021-8 ####[facility] LABCLIA [id number] [place] [address] [place] Eosinophils (Bld) [#/Vol] 0.21 10*3/uL Normal <0.46 [facility] Comment on above: Order Comment: Speci men Type: BLOOD SPECIMENOrdering Facility: [facility] Address: [address] [place] [address] Performed By: #### 5 7021-8 ####[facility] LABCLIA [id number] [place] [address] [place] Eosinophils/100 WBC (Bld) 4.1 % Normal [facility] Comment on above: Order Comment: Speci men Type: BLOOD SPECIMENOrdering Facility: [facility] Address: [address] [place], [place] [address] Performed By: #### 5 7021-8 ####[facility] LABCLIA [id number] [place] [address] [place] Erythrocyte distribution width (RBC) [Ratio] 13.1 % Normal 11.5-15.0 [facility] Comment on above: Order Comment: Speci men Type: BLOOD SPECIMENOrdering Facility: [facility] Address: [address] [place], [place] [address] Performed By: #### 5 7021-8 ####[facility] LABIA [id number] [place] [address] [place] Hematocrit (Bld) [Volume fraction] 39.9 % Normal 36.0-46.0 [facility] Comment on above: Order Comment: Speci men Type: BLOOD SPECIMENOrdering Facility: [facility] Address: [address] [place], [place] [address] Performed By: #### 5 7021-8 ####[facility] LABCLIA [id number] [place] [address] [place] Hemoglobin (Bld) [Mass/Vol] 12.7 g/dL Normal 11.5-15.5 [facility] Comment on above: Order Comment: Speci men Type: BLOOD SPECIMENOrdering Facility: [facility] Address: [address] Performed By: #### 5 7021-8 ####[facility] LABIA [id number] [place] [address] [place] Immature granulocytes (Bld) [#/Vol] 10*3/uL Normal <0.10 [facility] Comment on above: Order Comment: Speci men Type: BLOOD SPECIMENOrdering Facility: [facility] Address: [address] [place] [address] Performed By: #### 5 7021-8 ####[facility] LABCLIA [id number] [place] [address] [place] Immature granulocytes/100 WBC (Bld) 0.2 % Normal [facility] Comment on above: Order Comment: Speci men Type: BLOOD SPECIMENOrdering Facility: [facility] Address: [address] [place] [address] Performed By: #### 5 7021-8 ####[facility] LABCLIA [id number] [place] [address] [place] Lymphocytes (Bld) [#/Vol] 1.87 10*3/uL Normal 1.00-4.00 [facility] Comment on above: Order Comment: Speci men Type: BLOOD SPECIMENOrdering Facility: [facility] Address: [address] [place], [place] [address] Performed By: #### 5 7021-8 ####[facility] LABCLIA [id number] [place] [address] [place] Lymphocytes/100 WBC (Bld) 36.5 % Normal [facility] Comment on above: Order Comment: Speci men Type: BLOOD SPECIMENOrdering Facility: [facility] Address: [address] [place], [place] [address] Performed By: #### 5 7021-8 ####[facility] LABCLIA [id number] [place] [address] [place] MCH (RBC) [Entitic mass] 29.6 pg Normal 26.0-34.0 [facility] Comment on above: Order Comment: Speci men Type: BLOOD SPECIMENOrdering Facility: [facility] Address: [address] Performed By: #### 5 7021-8 ####[facility] LABCLIA [id number] [place] [address] [place] MCHC (RBC) [Mass/Vol] 31.8 g/dL Normal 30.5-36.0 [facility] Comment on above: Order Comment: Speci men Type: BLOOD SPECIMENOrdering Facility: [facility] Address: [address] Performed By: #### 5 7021-8 ####[facility] LABCLIA [id number] [place] [address] [place] MCV (RBC) [Entitic vol] 93.0 fL Normal 80.0-100.0 [facility] Comment on above: Order Comment: Speci men Type: BLOOD SPECIMENOrdering Facility: [facility] Address: [address] [place], [place] [address] Performed By: #### 5 7021-8 ####[facility] LABCLIA [id number] [place] [address] [place] Monocytes (Bld) [#/Vol] 0.36 10*3/uL Normal <0.87 [facility] Comment on above: Order Comment: Speci men Type: BLOOD SPECIMENOrdering Facility: [facility] Address: [address] Performed By: #### 5 7021-8 ####[facility] LABCLIA [id number] [address] [place] Monocytes/100 WBC (Bld) 7.0 % Normal [facility] Comment on above: Order Comment: Speci men Type: BLOOD SPECIMENOrdering Facility: [facility] Address: [address] [place], [place] [address] Performed By: #### 5 7021-8 ####[facility] LABCLIA [id number] [place] [address] [place] Neutrophils (Bld) [#/Vol] 2.62 10*3/uL Normal 1.45-7.50 [facility] Comment on above: Order Comment: Speci men Type: BLOOD SPECIMENOrdering Facility: [facility] Address: [address] [place] [address] Performed By: #### 5 7021-8 ####[facility] LABCLIA [id number] [place] [address] [place] Neutrophils/100 WBC (Bld) 51.0 % Normal [facility] Comment on above: Order Comment: Speci men Type: BLOOD SPECIMENOrdering Facility: [facility] Address: [address] [place] [address] Performed By: #### 5 7021-8 ####[facility] LABCLIA [id number] [place] [address] [place] Nucleated RBC (Bld) [#/Vol] 10*3/uL Normal <0.01 [facility] Comment on above: Order Comment: Speci men Type: BLOOD SPECIMENOrdering Facility: [facility] Address: [address] [place], [place] [address] Performed By: #### 5 7021-8 ####[facility] LABCLIA [id number] [place] [address] [place] Nucleated RBC/100 WBC (Bld) [Ratio] 0.0 /100 WBC Normal [facility] Comment on above: Order Comment: Speci men Type: BLOOD SPECIMENOrdering Facility: [facility] Address: [address] [place], [place] [address] Performed By: #### 5 7021-8 ####[facility] LABCLIA [id number] [place] [address] [place] Platelet mean volume (Bld) [Entitic vol] 10.9 fL Normal 9.0-12.7 [facility] Comment on above: Order Comment: Speci men Type: BLOOD SPECIMENOrdering Facility: [facility] Address: [address] [place], [place] [address] Performed By: #### 5 7021-8 ####[facility] LABCLIA [id number] [place] [address] [place] Platelets (Bld) [#/Vol] 166 10*3/uL Normal 150-400 [facility] Comment on above: Order Comment: Speci men Type: BLOOD SPECIMENOrdering Facility: [facility] Address: [address] [place], [place] [address] Performed By: #### 5 7021-8 ####[facility] LABIA [id number] [place] [address] [place] RBC (Bld) [#/Vol] 4.29 10*6/uL Normal 3.90-5.20 [facility] Comment on above: Order Comment: Speci men Type: BLOOD SPECIMENOrdering Facility: [facility] Address: [address] [place], [place] [address] Performed By: #### 5 7021-8 ####[facility] LABIA [id number] [place] [address] [place] WBC (Bld) [#/Vol] 5.13 10*3/uL Normal 3.70-11.00 [facility] Comment on above: Order Comment: Speci men Type: BLOOD SPECIMENOrdering Facility: [facility] Address: [address] [place], [place] [address] Performed By: #### 5 7021-8 ####[facility] LABIA [id number] [place] [address] [place] [facility] [place] Comprehensive metabolic 2000 panelon 11-30-2022 Albumin [Mass/Vol] 4.3 g/dL 3.9 - 4.9 g/dL [facility] ALP [Catalytic activity/Vol] 55 U/L 34 - 123 U/L [facility] ALT [Catalytic activity/Vol] 16 U/L 7 - 38 U/L [facility] Anion gap [Moles/Vol] 9 mmol/L 9 - 18 mmol/L [facility] AST [Catalytic activity/Vol] 25 U/L 13 - 35 U/L [facility] Bilirubin [Mass/Vol] 0.7 mg/dL 0.2 - 1 .3 mg/dL [facility] Calcium [Mass/Vol] 9.4 mg/dL 8.5 - 10. 2 mg/dL [facility] Chloride [Moles/Vol] 106 mmol/L High 97 - 10 5 mmol/L [facility] CO2 [Moles/Vol] 27 mmol/L 22 - 30 mmol/L [facility] Creatinine [Mass/Vol] 1.03 mg/dL High 0.58 - 0.96 mg/dL [facility] Estimated Glomerular Filtration Rate 58 mL/min/1.73m Low >=60 mL/min/1.73m [facility] Glucose [Mass/Vol] 88 mg/dL 74 - 99 mg/dL [facility] Potassium [Moles/Vol] 4.1 mmol/L 3.7 - 5.1 mmol/L [facility] Protein [Mass/Vol] 6.5 g/dL 6.3 - 8.0 g/dL [facility] Sodium [Moles/Vol] 142 mmol/L 136 - 144 mmol/L [facility] Urea nitrogen [Mass/Vol] 18 mg/dL 7 - 21 mg/dL [facility] Albumin [Mass/Vol] 4.3 g/dL Normal 3.9-4.9 [facility] Comment on above: Order Comment: Speci men Type: BLOOD SPECIMENOrdering Facility: [facility] Address: [address] [address] Performed By: #### 2 4323-8, 3016-3, 59457-9 ####[facility] LABCLIA [id number] [address] [facility] ALP [Catalytic activity/Vol] 55 U/L Normal 34-123 [facility] Comment on above: Order Comment: Speci men Type: BLOOD SPECIMENOrdering Facility: [facility] Address: [address] [address] Performed By: #### 2 4323-8, 3016-3, 92203-2 ####[facility] LABCLIA [id number] [address] [place] ALT [Catalytic activity/Vol] 16 U/L Normal 7-38 [facility] Comment on above: Order Comment: Speci men Type: BLOOD SPECIMENOrdering Facility: [facility] Address: [address] Performed By: #### 2 4323-8, 6-3, 77349-4 ####[facility] LABCLIA [id number] [place] [address] [place] Anion gap [Moles/Vol] 9 mmol/L Normal 9-18 [facility] Comment on above: Order Comment: Speci men Type: BLOOD SPECIMENOrdering Facility: [facility] Address: [address] Performed By: #### 2 4323-8, 3015-3, 05790-3 ####[facility] LABIA [id number] [address] [place] AST [Catalytic activity/Vol] 25 U/L Normal 13-35 [facility] Comment on above: Order Comment: Speci men Type: BLOOD SPECIMENOrdering Facility: [facility] Address: [address] [place] [address] Performed By: #### 2 4323-8, 6-3, 77166-5 ####[facility] LABCLIA [id number] [place] [address] [place] Bilirubin [Mass/Vol] 0.7 mg/dL Normal 0.2-1.3 [facility] Comment on above: Order Comment: Speci men Type: BLOOD SPECIMENOrdering Facility: [facility] Address: [address] Performed By: #### 2 4323-8, 6-3, 64658-5 ####[facility] LABCLIA [id number] [place] [address] [place] Calcium [Mass/Vol] 9.4 mg/dL Normal 8.5-10.2 [facility] Comment on above: Order Comment: Speci men Type: BLOOD SPECIMENOrdering Facility: [facility] Address: [address] [address] Performed By: #### 2 4323-8, 3015-3, 16515-5 ####[facility] LABCLIA [id number] [place] [address] [place] Chloride [Moles/Vol] 106 mmol/L High 97-105 [facility] Comment on above: Order Comment: Speci men Type: BLOOD SPECIMENOrdering Facility: [facility] Address: [address] [address] Performed By: #### 2 4323-8, 3, 79764-6 ####[facility] LABCLIA [id number] [place] [address] [place] CO2 [Moles/Vol] 27 mmol/L Normal 22-30 [facility] Comment on above: Order Comment: Speci men Type: BLOOD SPECIMENOrdering Facility: [facility] Address: [address] [place], [place] [address] Performed By: #### 2 4323-8, 3, 48053-3 ####[facility] LABCLIA [id number] [place] [address] [place] Creatinine [Mass/Vol] 1.03 mg/dL High 0.58-0.96 [facility] Comment on above: Order Comment: Speci men Type: BLOOD SPECIMENOrdering Facility: [facility] Address: [address] Performed By: #### 2 4323-8, 3015-3, 05527-0 ####[facility] LABCLIA [id number] [place] [address] [place] ESTIMATED GLOMERULAR FILTRATION RATE 58 mL/min/1.73m??? Low >=60 [facility] Comment on above: Order Comment: Sabas herrmann Type: BLOOD SPECIMENOrdering Facility: [facility] Address: [address] [address] Result Comment: Barbara mated Glomerular Filtration Rate (eGFR) is calculated using the 2020 CKD-EPI creatinine equation. This equation utilizes serum creatinine, sex, and age as parameters. The creatinine assay has traceable calibration to isotope dilution-mass spectrometry. Refer to KDIGO guidelines for clinical interpretation. In patients with unstable renal function, e.g. those with acute kidney injury, the eGFR may not accurately reflect actual GFR. Performed By: #### 2 4323-8, 3016-3, 55716-1 ####[facility] [id number] [place] [address] [place] [facility] Glucose [Mass/Vol] 88 mg/dL Normal 74-99 [facility] Comment on above: Order Comment: Sabas herrmann Type: BLOOD SPECIMENOrdering Facility: [facility] Address: [address] [place] [address] Result Comment: The [place] Diabetes Association (ADA) provides guidance for cutoff values for fasting glucose and random glucose. The ADA defines fasting as no caloric intake for at least 8 hours. Fasting plasma glucose results between 100 to 125 mg/dL indicate increased risk for diabetes (prediabetes). Fasting plasma glucose results greater than or equal to 126 mg/dL meet the criteria for diagnosis of diabetes. In the absence of unequivocal hyperglycemia, results should be confirmed by repeat testing. In a patient with classic symptoms of hyperglycemia or hyperglycemic crisis, random plasma glucose results greater than or equal to 200 mg/dL meet the criteria for diagnosis of diabetes. Reference: Standards of Medical Care in Diabetes 2016, [place] Diabetes Association. Diabetes Care. 2016.39(Suppl 1). Performed By: #### 2 4323-8, 3016-3, 39305-0 ####[facility] LABIA [id number] [id number] [address] [place] Potassium [Moles/Vol] 4.1 mmol/L Normal 3.7-5.1 [facility] Comment on above: Order Comment: Speci men Type: BLOOD SPECIMENOrdering Facility: [facility] Address: [address] [place] [address] Performed By: #### 2 4323-8, 3016-3, 83889-4 ####[facility] LABCLIA [id number] [place] [address] [place] Protein [Mass/Vol] 6.5 g/dL Normal 6.3-8.0 [facility] Comment on above: Order Comment: Speci men Type: BLOOD SPECIMENOrdering Facility: [facility] Address: [address] [place] [address] Performed By: #### 2 4323-8, 6-3, 95884-9 ####[facility] LABCLIA [id number] [place] [address] [place] Sodium [Moles/Vol] 142 mmol/L Normal 136-144 [facility] Comment on above: Order Comment: Speci men Type: BLOOD SPECIMENOrdering Facility: [facility] Address: [address] [place] [address] Performed By: #### 2 4323-8, 6-3, 47553-8 ####[facility] LABCLIA [id number] [place] [address] [place] Urea nitrogen [Mass/Vol] 18 mg/dL Normal 7-21 [facility] Comment on above: Order Comment: Speci men Type: BLOOD SPECIMENOrdering Facility: [facility] Address: [address] [place], [place] [address] Performed By: #### 2 4323-8, 6-3, 78976-4 ####[facility] LABCLIA [id number] [place] [address] [place] Lipid 1996 panelon 3 Cholesterol [Mass/Vol] 183 mg/dL <200 mg/dL [facility] Cholesterol in HDL [Mass/Vol] 67 mg/dL >39 mg/dL [facility] Cholesterol in LDL [Mass/Vol] 98 mg/dL <100 mg/dL [facility] Cholesterol in LDL/Cholesterol in HDL [Mass ratio] 1.46 {ratio} <2.54 [facility] Cholesterol in VLDL [Mass/Vol] 18 mg/dL <30 mg/dL [facility] Cholesterol non HDL [Mass/Vol] 116 mg/dL <130 mg/dL [facility] Cholesterol.total/Cho lesterol in HDL [Mass ratio] 2.73 {ratio} <5.10 [facility] Fasting Time 12 hrs [facility] Triglyceride [Mass/Vol] 89 mg/dL <150 mg/dL [facility] Cholesterol [Mass/Vol] 183 mg/dL Normal <200 [facility] Comment on above: Order Comment: Speci men Type: BLOOD SPECIMENOrdering Facility: [facility] Address: [address] [place] [address] Result Comment: <200 mg/dL, Desirable 200-239 mg/dL, Borderline high >239 mg/dL, High Performed By: #### 2 4323-8, 3016-3, 00811-6 ####[facility] LABCLIA [id number] [address] [place] Cholesterol in HDL [Mass/Vol] 67 mg/dL Normal >39 [facility] Comment on above: Order Comment: Shannani men Type: BLOOD SPECIMENOrdering Facility: [facility] Address: [address] [place] [address] Result Comment: 40-5 9 mg/dL, Acceptable >59 mg/dL, High: Negative risk factor for coronary heart disease <40 mg/dL, Low: Positive risk factor for coronary heart disease Performed By: #### 2 4323-8, 3016-3, 06005-9 ####[facility] LABCLIA [id number] [place] [address] [place] Cholesterol in LDL [Mass/Vol] 98 mg/dL Normal <100 [facility] Comment on above: Order Comment: Speci men Type: BLOOD SPECIMENOrdering Facility: [facility] Address: [address] [address] Result Comment: <100 mg/dL, Optimal 100-129 mg/dL, Near optimal/above optimal 130-159 mg/dL, Borderline high 160-189 mg/dL, High >189 mg/dL, Very high Secondary prevention optimal LDL Cholesterol levels are recommended to be < 70 mg/dL Performed By: #### 2 4323-8, 6-3, 74041-7 ####[facility] LABCLIA [id number] [place] [address] [place] Cholesterol in LDL/Cholesterol in HDL [Mass ratio] 1.46 {ratio} Normal <2.54 [facility] Comment on above: Order Comment: Sabas men Type: BLOOD SPECIMENOrdering Facility: [facility] Address: [address] [place] [address] Result Comment: Refe rence: 1. National Cholesterol Education Program ATP III Guideline At-A-Glance Quick Desk Reference: National Heart, Lung, and Blood Clark. National Institutes of Health. 2001: NIH Publication No. 01-3305. 2. An International Atherosclerosis Society position paper: global recommendations for the management of dyslipidemia: executive summary, Atherosclerosis. 2014: 232(2):410-413. Performed By: #### 2 4323-8, 3015-3, 23847-7 ####[facility] LABCLIA [id number] [place] [address] [place] Cholesterol in VLDL [Mass/Vol] 18 mg/dL Normal <30 [facility] Comment on above: Order Comment: Shannani men Type: BLOOD SPECIMENOrdering Facility: [facility] Address: [address] [address] Performed By: #### 2 4323-8, 6-3, 15666-7 ####[facility] LABCLIA [id number] [place] [address] [place] Cholesterol non HDL [Mass/Vol] 116 mg/dL Normal <130 [facility] Comment on above: Order Comment: Speci men Type: BLOOD SPECIMENOrdering Facility: [facility] Address: [address] [place] [address] Result Comment: <130 mg/dL, Optimal 130-159 mg/dL, Near optimal/above optimal 160-189 mg/dL, Borderline high 190-219 mg/dL, High >219 mg/dL, Very high Secondary prevention optimal non HDL Cholesterol levels are recommended to be <100 mg/dL Performed By: #### 2 4323-8, 3016-3, 01381-3 ####[facility] LABCLIA [id number] [place] [address] [place] Cholesterol.total/Cho lesterol in HDL [Mass ratio] 2.73 {ratio} Normal <5.10 [facility] Comment on above: Order Comment: Speci men Type: BLOOD SPECIMENOrdering Facility: [facility] Address: [address] [place] [address] Performed By: #### 2 4323-8, 6-3, 15098-2 ####[facility] LABCLIA [id number] [place] [address] [place] FASTING TIME 12 hrs Normal [facility] Comment on above: Order Comment: Speci men Type: BLOOD SPECIMENOrdering Facility: [facility] Address: [address] [place] [address] Performed By: #### 2 4323-8, 3015-3, 43819-7 ####[facility] LABCLIA [id number] [place] [address] [place] Triglyceride [Mass/Vol] 89 mg/dL Normal <150 [facility] Comment on above: Order Comment: Speci men Type: BLOOD SPECIMENOrdering Facility: [facility] Address: [address] [place] [address] Result Comment: <150 mg/dL, Normal 150-199 mg/dL, Borderline high 200-499 mg/dL, High >499 mg/dL, Very high Performed By: #### 2 4323-8, 3016-3, 59749-9 ####[facility] LABCLIA [id number] [address] [place] TSH BLDon 11-30-2022 TSH Qn 1.290 m[IU]/L 0.270 - 4.200 mIU/L [facility] TSH SerPl-aCncon 11-30-2022 TSH Qn 1.290 m[IU]/L Normal 0.270-4.200 [facility] Comment on above: Order Comment: Speci men Type: BLOOD SPECIMENOrdering Facility: [facility] Address: [address] [place] [address] Performed By: #### 2 4323-8, 3016-3, 40069-6 ####[facility] LABCLIA [id number] [address] [facility] [address] ([id number]) 1950 F Date Time Provider Department 11/26/22 EMMA SCHULTZ INTWS During your visit today, we recorded the following information about you: Alicja Velasquez RN 11/26/2022 3:33 PM Signed Patient calls to request lab orders be placed prior to 6 month follow up on December 09. Please call patient once orders are placed at [phone]. EUSEBIO Gann MD 11/27/2022 12:26 PM Signed Ordered labs as requested Regards, Emma Velasquez RN 11/30/2022 10:09 AM Signed Call placed to patient with no answer. Voicemail left for patient to return call and ask to speak to a triage nurse to receive provider message. EUSEBIO Gann LPN 11/30/2022 10:15 AM Signed Patient returned call and went over notes below from Dr Schultz with understanding. Allergies As of Date: 11/26/2022 Noted Allergy Reaction BONIVA (IBANDRONATE) 08/21/2021 14 - Other: See Comments Comments: Was so down and out for 4 weeks she does not want the medication FOSAMAX (ALENDRONATE) 08/21/2021 14 - Other: See Comments Comments: She was down for a month after taking them . Just did not tolerate them at all QPSEEVI-GGU-IRY REDUCTASE INHIBIT*08/21/2021 17 - Myalgia Comments: Restless legs. Date Reviewed: 06/10/2022 Reviewed by: Jacquelyn Person LPN - Fully Assessed Reason for Visit: Orders [681] Primary Visit Diagnosis:Hypothyroidi sm, unspecified type [E03.9] Other Visit Diagnoses:Mixed hyperlipidemia [E78.2] Osteoporosis, unspecified osteoporosis type, unspecified pathological fracture presence [M81.0] Order(s):TSH BLD [SQTSH] Order #: [id number] FUTURE COMP METABOLIC PANEL [SQCMP] Order #: [id number] FUTURE CBC + DIFF [SQCBCDIF] Order #: [id number] FUTURE LIPID PANEL BASIC [SQLIPB] Order #: [id number] FUTURE VITAMIN D 25 HYDROXY [SQVITD] Order #: [id number] FUTURE Prescriptions as of 11/30/2022 - levothyroxine (LEVOXYL) 50 mcg tablet Take 1 tablet by mouth once daily. Except on Tuesday take 2 pills. Take on empty stomach. For Thyroid - acebutolol (SECTRAL) 200 mg capsule TAKE 1 CAPSULE TWICE DAILY - rosuvastatin (CRESTOR) 10 mg tablet Take 1 tablet by mouth once daily. - azelastine (ASTELIN) 0.1% nasal spray Use 1 [place] in each nostril twice daily. - SUMAtriptan (IMITREX) 20 mg/actuation nasal spray Use 20 Sprays in the nose as needed. - aspirin 81 mg chewable tablet Take 81 mg by mouth once daily. - niacin (NIACIN) 500 mg tablet Take 500 mg by mouth daily with breakfast. - lecithin 1,000 mg chew Take 600 mg by mouth once daily. - ubidecarenone Q-10 (COENZYME Q-10) 10 mg cap Take by mouth twice daily. - VIT D3-FOLIC HCYW-H4-K6-B12 ORAL Take by mouth. - GAMMA-AMINOBUTYRIC ACID, BULK, MISC - polyethylene glycol 3350 (MIRALAX ORAL) Take by mouth. - glucosam/chond-msm1/C/ castro/bor (VZCEPUAQORK-NFCAO-POO COMPLEX ORAL) Take by mouth. - magnesium glycinate (MAG GLYCINATE ORAL) Take by mouth. - montelukast (SINGULAIR) 10 mg tablet Take 1 tablet by mouth daily at bedtime. - albuterol HFA (VENTOLIN HFA) 90 mcg/actuation inhaler Inhale 2 Puffs as instructed every 4 hours as needed for wheezing/shortness of breath. Problem List As Of Date 11/26/2022 Noted Resolved Hand arthritis [M19.049] 06/10/2022 Encounter Status:Closed by TOMMY OTERO LPN on 11/30/22 [facility]20[facility] [address] ([id number]) 1950 F Date Time Provider Department 08/25/22 EMMA SCHULTZ INTCHUY During your visit today, we recorded the following information about you: Yamilka Stringer RN 08/25/2022 4:32 PM Signed Patient calls and states that her and are going out of [place] on September 06. Patient asking if she is updated on Covid Boosters? Patient just wanted to make sure she shouldn't have a Covid booster before her trip. Please review and advise, EUSEBIO Bailey MD 08/26/2022 3:06 PM Signed Yes, she has taken all the available ones And is upto date Regards, Emma Person, BELLY PACKER 08/26/2022 3:20 PM Signed Patient advised, verbalized understanding. Allergies As of Date: 08/25/2022 Noted Allergy Reaction BONIVA (IBANDRONATE) 08/21/2021 14 - Other: See Comments Comments: Was so down and out for 4 weeks she does not want the medication FOSAMAX (ALENDRONATE) 08/21/2021 14 - Other: See Comments Comments: She was down for a month after taking them . Just did not tolerate them at all LWKWEAX-UHS-YVS REDUCTASE INHIBIT*08/21/2021 17 - Myalgia Comments: Restless legs. Date Reviewed: 06/10/2022 Reviewed by: Jacquelyn Person LPN - Fully Assessed Reason for Visit: Patient Question [1477] Prescriptions as of 08/26/2022 - levothyroxine (LEVOXYL) 50 mcg tablet Take 1 tablet by mouth once daily. Except on Tuesday take 2 pills. Take on empty stomach. For Thyroid - acebutolol (SECTRAL) 200 mg capsule TAKE 1 CAPSULE TWICE DAILY - rosuvastatin (CRESTOR) 10 mg tablet Take 1 tablet by mouth once daily. - azelastine (ASTELIN) 0.1% nasal spray Use 1 [place] in each nostril twice daily. - SUMAtriptan (IMITREX) 20 mg/actuation nasal spray Use 20 Sprays in the nose as needed. - aspirin 81 mg chewable tablet Take 81 mg by mouth once daily. - niacin (NIACIN) 500 mg tablet Take 500 mg by mouth daily with breakfast. - lecithin 1,000 mg chew Take 600 mg by mouth once daily. - ubidecarenone Q-10 (COENZYME Q-10) 10 mg cap Take by mouth twice daily. - VIT D3-FOLIC PNOX-Y7-W1-B12 ORAL Take by mouth. - GAMMA-AMINOBUTYRIC ACID, BULK, MISC - polyethylene glycol 3350 (MIRALAX ORAL) Take by mouth. - glucosam/chond-msm1/C/ castro/bor (VMBDEZMMGQS-VSYJO-XFU COMPLEX ORAL) Take by mouth. - magnesium glycinate (MAG GLYCINATE ORAL) Take by mouth. - montelukast (SINGULAIR) 10 mg tablet Take 1 tablet by mouth daily at bedtime. - albuterol HFA (VENTOLIN HFA) 90 mcg/actuation inhaler Inhale 2 Puffs as instructed every 4 hours as needed for wheezing/shortness of breath. Problem List As Of Date 08/25/2022 Noted Resolved Hand arthritis [M19.049] 06/10/2022 Encounter Status:Closed by LA PERSONQUELINE on 08/26/22 Normal [facility] No Panel Informationon 07-27 [facility] XR Hand - right PA and Later al and Obliqueon 06-13-2022 IMPRESSION: DEGENERATIVE DISC DISEASE IN THE RIGHT HAND. Custody Officer: PSCB Transcribe Date/Time: Jun 13 2022 8:18P Dictated by : DAYLIN CHOW MD This examination was interpreted and the report reviewed and electronically signed by: DAYLIN CHOW MD on Jun 13 2022 8:19PM [facility] DIVISION OF RADIOLOGY * * *Final Report* * * DATE OF EXAM: Jun 10 2022 12:45PM WOX 5346 - XR HAND 3V PA/LAT/OBL RT / PROCEDURE REASON: Hand arthritis * * * * Physician Interpretation * * * * HISTORY: 71-YEAR-OLD FEMALE WITH Hand arthritis . Right thumb pain increasing over time without injury TECHNIQUE: XR HAND 3V PA/LAT/OBL RT Laterality: RIGHT Number of different views (projections): 3 COMPARISON: None RESULT: Moderate narrowing the first CMC joint with osteophytes. Degenerative changes at the first MCP joint. Advanced degenerative changes IP joint of thumb with large dorsal osteophyte. Degenerative changes of the MCP joint of the second and third digit, PIP joint of the second third digit and DIP joints of the second third and fifth digit. No fracture. No erosions. DIVISION OF RADIOLOGY Provider, [facility] Gabriel [facility] - 06/13/2022 * * *Final Report* * * DATE OF EXAM: Jun 10 2022 12:45PM WOX 5346 - XR HAND 3V PA/LAT/OBL RT / PROCEDURE REASON: Hand arthritis * * * * Physician Interpretation * * * * HISTORY: 71-YEAR-OLD FEMALE WITH Hand arthritis . Right thumb pain increasing over time without injury TECHNIQUE: XR HAND 3V PA/LAT/OBL RT Laterality: RIGHT Number of different views (projections): 3 COMPARISON: None RESULT: Moderate narrowing the first CMC joint with osteophytes. Degenerative changes at the first MCP joint. Advanced degenerative changes IP joint of thumb with large dorsal osteophyte. Degenerative changes of the MCP joint of the second and third digit, PIP joint of the second third digit and DIP joints of the second third and fifth digit. No fracture. No erosions. IMPRESSION IMPRESSION: DEGENERATIVE DISC DISEASE IN THE RIGHT HAND. Custody Officer: CHRISTIANO Transcribe Date/Time: Jun 13 2022 8:18P Dictated by : DAYLIN CHOW MD This examination was interpreted and the report reviewed and electronically signed by: DAYLIN CHOW MD on Jun 13 2022 8:19PM EST [facility] XR Hand - right PA and Later al and ObliqueOrdered By: Ccf Provider on 06-13-2022 [facility] XR Hand - right PA and Later al and Obliqueon 06-10-2022 Radiology Study observation (narrative) [facility] XR Cervical spine AP and Lat eral and obliqueon 04-09-2022 IMPRESSION:The alignment of the vertebra is anatomic. There is no loss of vertebral body height or evidence of destructive lesion. There is moderate multilevel disc space narrowing with endplate osteophytes. There is moderate C4-5, mild C5-6 and mild C6-7 neural foraminal narrowing on the left. There is moderate C4-5, mild C3-4, C5-6 and C6-7 neural foraminal narrowing on the right. There is no precervical soft tissue swelling. Visualized lung apices are clear. Custody Officer: CHRISTIANO Transcribe Date/Time: Apr 09 2022 9:06A Dictated by : ROSAMARIA MCMULLEN MD This examination was interpreted and the report reviewed and electronically signed by: ROSAMARIA MCMULLEN MD on Apr 09 2022 9:09AM [facility] DIVISION OF RADIOLOGY * * *Final Report* * * DATE OF EXAM: Apr 07 2022 5:07PM WOX 5311 - XR CERVICAL 4V AP/LAT/OBL / PROCEDURE REASON: multiple diagnoses * * * * Physician Interpretation * * * * EXAM:XR CERVICAL 4V AP/LAT/OBL HISTORY: Pain in finger of both hands Pain in finger of both hands Numbness and tingling in left hand Numbness and tingling in left hand COMPARISON:None DIVISION OF RADIOLOGY Provider, [facility] Gabriel colbert [facility] - 04/09/2022 * * *Final Report* * * DATE OF EXAM: Apr 07 2022 5:07PM WOX 5311 - XR CERVICAL 4V AP/LAT/OBL / PROCEDURE REASON: multiple diagnoses * * * * Physician Interpretation * * * * EXAM:XR CERVICAL 4V AP/LAT/OBL HISTORY: Pain in finger of both hands Pain in finger of both hands Numbness and tingling in left hand Numbness and tingling in left hand COMPARISON:None IMPRESSION IMPRESSION:The alignment of the vertebra is anatomic. There is no loss of vertebral body height or evidence of destructive lesion. There is moderate multilevel disc space narrowing with endplate osteophytes. There is moderate C4-5, mild C5-6 and mild C6-7 neural foraminal narrowing on the left. There is moderate C4-5, mild C3-4, C5-6 and C6-7 neural foraminal narrowing on the right. There is no precervical soft tissue swelling. Visualized lung apices are clear. [facility]ustody [facility] Transcribe Date/Time: Apr 09 2022 9:06A Dictated by : ROSAMARIA MCMULLEN MD This examination was interpreted and the report reviewed and electronically signed by: ROSAMARIA MCMULLEN MD on Apr 09 2022 9:09AM EST [facility] XR Cervical spine AP and Lat eral and obliqueOrdered By: Ccf Provider on 04-09-2022 [facility] XR Cervical spine AP and Lat eral and obliqueon 04-07-2022 Radiology Study observation (narrative) [facility] Hemoglobin A1con 03-31-2019 HbA1c (Bld) [Mass fraction] 5.3 % Normal 4.3-5.6 [facility] Comment on above: Performed By: #### H BA1C #### [facility] Routine Lab [address] [place], [place] [address] HbA1c (Bld) [Mass fraction] 105 mg/dL Normal [facility] Comment on above: Performed By: #### H BA1C #### [facility] [address] [place], [place] [address] URINE CATARINO CULTURE-IDENTIFICA [place] ([id number])Ordered By: Pocket Marker on 11-10-2016 Bacteria identified Cx Nom (U) Final report Normal [facility] Work Phone: Comment on above: PATIENT NOT FASTINGP ERFORMED BY: LILLIAN Funidelia St[facility] [id number] Information: SRC: Bacteria identified Cx Nom (U) MUG Normal [facility] Work Phone: Comment on above: Mixed urogenital jean pierre ra1,000 Colonies/mL PATIENT NOT FASTINGP ERFORMED BY: LILLIAN It[place] Pel[facility] [id number] Information: SRC: Urinalysis, Office ([id number])Or dered By: Stephany Avina on 11-10-2016 Bilirubin Ql (U) Negative Normal Compre[facility] Work Phone: Glucose Test strip (U) [Mass/Vol] Negative Normal [facility] Work Phone: Hemoglobin Ql (U) Negative Normal Compreh [facility] Work Phone: Ketones Ql (U) Small Normal Comprehens r[facility] Work Phone: Leukocyte esterase Test strip Ql (U) Small Normal [facility] Work Phone: Nitrite Ql (U) Negative Normal Comprehens [facility] Work Phone: pH (U) 6 [pH] Abnormal [facility] Work Phone: Protein Ql (U) Negative Normal Comprehens [facility] Work Phone: Specific gravity (U) [Rel density] 1.010 1 Normal [facility] Work Phone: Urobilinogen (24H U) [Mass/Time] Normal Normal [facility] Work Phone: ALON (ANTINUCLEAR ANTIBODY) ( [id number])Ordered By: Pocket Marker on 08-17-2016 Nuclear Ab Ql (S) Positive Abnormal Compreh ensive Internal Medicine Work Phone: Comment on above: PATIENT NOT FASTINGP ERFORMED BY: Segmint6370 [facility] [id number] BY: [address] 082770 [facility] [id number] BY: [address] [id number] C-REACTIVE PROTEIN ([id number])Or dered By: Pocket Marker on 08-17-2016 CRP [Mass/Vol] mg/L Normal 0.0-4.9 Comprehens ricky Internal Medicine Work Phone: Comment on above: PATIENT NOT FASTINGP ERFORMED BY: FunideliaCape Regional Medical CenterWukjft4227 [facility] [id number] BY: [address] [place] [address] [id number] BY: [address] [id number] CCP ANTIBODY (13561)Ordered By: Pocket Marker on 08-17-2016 Cyclic citrullinated peptide IgA+IgG IA Qn 8 {units} Normal 0-[address] [facility] [facility] Internal [facility] Work Phone: Comment on above: Negative <20 Weak po sitive 20 - 39 Moderate positive 40 - 59 Strong positive >59 PATIENT NOT FASTINGP ERFORMED BY: FunideliaCape Regional Medical CenterFknwkl0356 [facility] [id number] BY: [address] [place], [place] [address] [facility] [id number] BY: [address] [id number] HLA-B27 ANTIGEN (59307)Order ed By: Pocket Marker on 08-17-2016 HLA-B27 MARJORIE+probe Ql (Bld/Tiss) Positive Normal [facility] Work Phone: Comment on above: HLA-B*27 PositiveThi s patient is positive for HLA-B*27. This procedure rulesout the B*27:06 and 27:09 alleles, which the literaturesuggests are not associated with spondyloarthropathies.HLA allele interpretation for all loci based on IMGT/HLAdatabase version 3.25.0Mercy HospitalIA ID Number [id number] .This test was performed using PCR (Polymerase Chain Reaction)/SSOP(Sequence Specific Oligonucleotide Probes) technique. SBT (SequenceBased Typing) and/or SSP (Sequence Specific Primers) may be used assupplemental methods when necessary. Please contact HLA CustomerService at if you have any questions. . Director of HLA Laboratory Dr Rasheed Buckner, PhD PATIENT NOT FASTINGP ERFORMED BY: Agrivida70 [facility] [id number] BY: Kaymu [employer] [address] [id number] BY: [employer] [address] [id number] RHEUMATOID FACTOR-QUANT (037 20)Ordered By: Pocket Marker on 08-17-2016 Rheumatoid factor Qn [IU]/mL Normal 0.0-13.9 Comp rehensive Internal Medicine Work Phone: Comment on above: PATIENT NOT FASTINGP ERFORMED BY: Agrivida70 [address] [place] [facility] [id number] BY: Kaymu [employer] [id number] BY: [employer] [id number] ESR-F (SED RATE ERYTHROCYTE - FEMALE) ([id number])Ordered By: Pocket Marker on 07-12-2016 ESR (Bld) [Velocity] 5 mm/h Normal 0-40 Comp [facility] Work Phone: Comment on above: PATIENT NOT FASTINGP ERFORMED BY: Segmint6370 [facility] [id number] SPEP ([id number])Ordered By: Syst em Butt Maker on 07-12-2016 Albumin [Mass/Vol] 3.8 g/dL Normal 2.9-4.4 Compre [facility] Internal Medicine Work Phone: Comment on above: PATIENT NOT FASTINGP ERFORMED BY: Agrivida70 [address] [facility] [id number] Albumin/Globulin [Mass ratio] 1.3 {ratio} Normal 0.7-1.7 [facility] Work Phone: Comment on above: PATIENT NOT FASTINGP ERFORMED BY: CB [facility] Rmbuzv5565 [address] RoadDublin [place] [id number] Alpha 1 globulin Elph [Mass/Vol] 0.2 g/dL Normal 0.0-0.4 [facility] Work Phone: Comment on above: PATIENT NOT FASTINGP ERFORMED BY: CB [facility] Rkdxhg0648 [address] RoadDublin [place] [id number] Alpha 2 globulin Elph [Mass/Vol] 0.6 g/dL Normal 0.4-1.0 [facility] Work Phone: Comment on above: PATIENT NOT FASTINGP ERFORMED BY: CB [facility] Cwmbwz1975 [address] RoadDublin [place] [id number] Beta globulin Elph [Mass/Vol] 1.1 g/dL Normal 0.7-1.3 [facility] Work Phone: Comment on above: PATIENT NOT FASTINGP ERFORMED BY: CB [facility] Aoffmz2787 [address] RoadDublin [place] [id number] Gamma globulin Elph [Mass/Vol] 1.0 g/dL Normal 0.4-1.8 [facility] Work Phone: Comment on above: PATIENT NOT FASTINGP ERFORMED BY: CB [facility] Iwlbnk5883 [address] RoadDublin [place] [id number] Globulin (S) [Mass/Vol] 2.9 g/dL Normal 2.2-3.9 [facility] Internal Medicine Work Phone: Comment on above: PATIENT NOT FASTINGP ERFORMED BY: CB [facility] Rbqmlz6566 [address] RoadDublin [place] [id number] Protein [Mass/Vol] 6.7 g/dL Normal 6.0-8.5 [facility] Internal Medicine Work Phone: Comment on above: PATIENT NOT FASTINGP ERFORMED BY: CB [facility] Edzbtd7275 [address] RoadDublin [place] [id number] Protein.monoclonal Elph [Mass/Vol] Not Observed Normal [facility] Work Phone: Comment on above: PATIENT NOT FASTINGP ERFORMED BY: CB [facility] Ibmnzk8284 [address] RoadDublin [place] [id number] UPEP ([id number])Ordered By: Syst em Butt Maker on 07-12-2016 Albumin Elph (U) [Mass fraction] 37.5 % Normal [facility] Work Phone: Comment on above: PATIENT NOT FASTINGP ERFORMED BY: CB [facility] Tzsrax1040 [address] RoadDublin [place] [id number] Alpha 1 globulin Elph (U) [Mass fraction] 11.1 % Normal Comprehensiv e Internal Medicine Work Phone: Comment on above: PATIENT NOT FASTINGP ERFORMED BY: [facility] Ouyujb9010 [address] RoadDublin [place] [id number] Alpha 2 globulin Elph (U) [Mass fraction] 14.7 % Normal Comprehensiv e Internal Medicine Work Phone: Comment on above: PATIENT NOT FASTINGP ERFORMED BY: CB [facility] Twasfi8994 [address] RoadDublin [place] [id number] Beta globulin Elph (U) [Mass fraction] 21.8 % Normal Comprehensiv e Internal Medicine Work Phone: Comment on above: PATIENT NOT FASTINGP ERFORMED BY: [facility] Rdmvbq8235 [address] RoadDublin [place] [id number] Gamma globulin Elph (U) [Mass fraction] 14.9 % Normal Comprehensiv e Internal Medicine Work Phone: Comment on above: PATIENT NOT FASTINGP ERFORMED BY: CB [facility] Nixopd6905 [address] RoadDublin [place] [id number] Laboratory comment Jose (Report) SPRCS Normal [facility] Work Phone: Comment on above: Protein electrophore sis scan will follow via computer, mail, orcourier delivery. PATIENT NOT FASTINGP ERFORMED BY: CB [facility] Fkzaet2267 [address] RoadDublin [place] [id number] Protein (U) [Mass/Vol] 5.1 mg/dL Normal [facility] Work Phone: Comment on above: PATIENT NOT FASTINGP ERFORMED BY: LILLIAN LabYvan Reqgrn2315 [address] RoadDublin [place] [id number] Protein.monoclonal Elph (U) [Mass fraction] Not Observed Normal [facility] Work Phone: Comment on above: PATIENT NOT FASTINGP ERFORMED BY: LILLIAN LabEveirp Hantyu4157 [address] RoadDublin [place] [id number] URINALYSIS ([id number])Ordered By : Pocket Marker on 07-12-2016 Appearance (U) Cloudy Abnormal Comprehens ricky Internal Medicine Work Phone: Comment on above: PATIENT NOT FASTINGP ERFORMED BY: LILLIAN LabYvan LeonardKzjevo2673 [address] RoadDublin [place] [id number] Bilirubin Ql (U) Negative Normal Comprehe nsive Internal Medicine Work Phone: Comment on above: PATIENT NOT FASTINGP ERFORMED BY: LILLIAN Leonardlin6370 [address] RoadDublin [place] [id number] Color (U) Yellow Normal [facility] Work Phone: Comment on above: PATIENT NOT FASTINGP ERFORMED BY: LILLIAN LabYvan LeonardMvpcef8009 [address] RoadDublin [place] [id number] Glucose Ql (U) Negative Normal Comprehens ricky Internal Medicine Work Phone: Comment on above: PATIENT NOT FASTINGP ERFORMED BY: LILLIAN LabEvierp Vewzlx9945 [address] RoadDublin [place] [id number] Hemoglobin Ql (U) Negative Normal Compreh ensive Internal Medicine Work Phone: Comment on above: PATIENT NOT FASTINGP ERFORMED BY: LILLIAN [facility] Yesskw9254 [address] RoadDublin [place] [id number] Ketones Ql (U) Negative Normal Comprehens ricky Internal Medicine Work Phone: Comment on above: PATIENT NOT FASTINGP ERFORMED BY: LILLIAN LabYvan Bualdq5693 [address] RoadDublin [place] [id number] Leukocyte esterase Test strip Ql (U) Trace Abnormal [facility] Work Phone: Comment on above: PATIENT NOT FASTINGP ERFORMED BY: LILLIAN [facility] Twgjmy8307 [address] Memorial HealthcareDublin [place] [id number] Microscopic observation LM Nom (Urine sed) See below: Normal [facility] Work Phone: Comment on above: Microscopic was tiera cated and was performed. PATIENT NOT FASTINGP ERFORMED BY: LILLIAN [facility] Xhtxje5813 [address] Man [facility]blin [place] [id number] Nitrite Ql (U) Negative Normal Comprehens ricky Internal Medicine Work Phone: Comment on above: PATIENT NOT FASTINGP ERFORMED BY: LILLIAN [facility] Cqaddu8064 [address] [facility]bl[facility] [place] [id number] pH (U) 7.5 [pH] Normal 5.0-7.5 [facility] Work Phone: Comment on above: PATIENT NOT FASTINGP ERFORMED BY: LILLIAN LabYvan LeonardJldxej0466 [address] [facility] [id number] Protein Ql (U) Negative Normal Comprehens ricky Internal Medicine Work Phone: Comment on above: PATIENT NOT FASTINGP ERFORMED BY: LILLIAN LabYvan LeonardDrnxwz0435 [address] [facility] [place] [id number] Specific gravity (U) [Rel density] 1.010 1 Normal 1.005-1.030 [facility] Work Phone: Comment on above: PATIENT NOT FASTINGP ERFORMED BY: LILLIAN [facility] Annsdv5392 [address] [facility] [id number] Urobilinogen Test strip (U) [Mass/Vol] 0.2 mg/dL Normal 0.2-1.0 Comprehensi Internal Medicine Work Phone: Comment on above: PATIENT NOT FASTINGP ERFORMED BY: LILLIAN [facility] Yewqre4350 [address] [facility] [place] [id number] Urinalysis, Office (64171)on 04-23-2015 Bilirubin Ql (U) Negative Normal Comprehe nsive Internal Medicine Work Phone: Glucose Test strip (U) [Mass/Vol] Negative Normal [facility] Work Phone: Hemoglobin Ql (U) Hemolyzed Trace Normal Co mprehensive Internal Medicine Work Phone: Ketones Ql (U) Negative Normal Comprehens ricky [facility] Medicine Work Phone: Leukocyte esterase Test strip Ql (U) Small Normal [facility] Work Phone: Nitrite Ql (U) Negative Normal Comprehens ricky Internal Medicine Work Phone: pH (U) 7.5 [pH] Normal [facility] Work Phone: Protein Ql (U) Negative Normal Comprehens ricky Internal Medicine Work Phone: Specific gravity (U) [Rel density] 1.015 1 Normal [facility] Work Phone: Urobilinogen (24H U) [Mass/Time] Normal Normal [facility] Work Phone: URINALYSIS (36494)Ordered By : Pocket Marker on 07-02-2014 Appearance (U) Clear Normal Comprehens ricky Internal Medicine Work Phone: Comment on above: PATIENT NOT FASTINGP ERFORMED BY: LILLIAN [facility] Gydqbo5396 [facility] [id number] Information: [id number] Bilirubin Ql (U) Negative Normal Comprehe nsive Internal Medicine Work Phone: Comment on above: PATIENT NOT FASTINGP ERFORMED BY: LILLIAN [facility] Ummbzz2436 [facility] [id number] Information: [id number] Color (U) Yellow Normal [facility] Work Phone: Comment on above: PATIENT NOT FASTINGP ERFORMED BY: LILLIAN [facility] Qkqhul1181 [address] AlliedPathSelect [facility] [id number] Information: [id number] Glucose Ql (U) Negative Normal Comprehens ricky [facility] Medicine Work Phone: Comment on above: PATIENT NOT FASTINGP ERFORMED BY: LILLIAN [facility] Fihvbt4648 [facility] [id number] Information: [id number] Hemoglobin Ql (U) Negative Normal Compreh ensive Internal Medicine Work Phone: Comment on above: PATIENT NOT FASTINGP ERFORMED BY: LILLIAN [facility] Kwsynv4788 [address] [facility] [id number] Information: [id number] Ketones Ql (U) Negative Normal Comprehens ricky Internal Medicine Work Phone: Comment on above: PATIENT NOT FASTINGP ERFORMED BY: LILLIAN [facility] Jvimbs3654 [address] [facility] [id number] Information: [id number] Leukocyte esterase Test strip Ql (U) 1+ Abnormal [facility] Work Phone: Comment on above: PATIENT NOT FASTINGP ERFORMED BY: LILLIAN [facility] Rqqfcj8841 [address] [facility] [id number] Information: [id number] Microscopic observation LM Nom (Urine sed) See below: Normal [facility] Work Phone: Comment on above: Microscopic was tiera cated and was performed. PATIENT NOT FASTINGP ERFORMED BY: LILLIAN [facility] Wixxrk9118 [address] [facility] [id number] Information: [id number] Nitrite Ql (U) Negative Normal Comprehens ricky Internal Medicine Work Phone: Comment on above: PATIENT NOT FASTINGP ERFORMED BY: LILLIAN [facility] Vheash8266 [address] [facility] [id number] Information: [id number] pH (U) 7.5 [pH] Normal 5.0-7.5 [facility] Work Phone: Comment on above: PATIENT NOT FASTINGP ERFORMED BY: LILLIAN [facility] Ljfxub4163 [address] [facility]in [place] [id number] Information: [id number] Protein Ql (U) Negative Normal Comprehens ricky [facility] Medicine Work Phone: Comment on above: PATIENT NOT FASTINGP ERFORMED BY: CB [facility] Quybtw6432 [address] [facility] [id number] Information: [id number] Specific gravity (U) [Rel density] 1.009 1 Normal 1.005-1.030 [facility] Work Phone: Comment on above: PATIENT NOT FASTINGP ERFORMED BY: LILLIAN [facility] Ywwhps0381 [address] [facility] [id number] Information: [id number] Urobilinogen Test strip (U) [Mass/Vol] 0.2 mg/dL Normal 0.0-1.9 Comprehensi ve Internal Medicine Work Phone: Comment on above: PATIENT NOT FASTINGP ERFORMED BY: [facility] Ooktys6744 [address] [facility] [id number] Information: [id number] URINE CATARINO CULTURE-IDENTIFICA TN (75863)Ordered By: Pocket Marker on 07-02-2014 Bacteria identified Cx Nom (U) NG36 Normal [facility] Work Phone: Comment on above: No growth in 36 - 48 hours. PATIENT NOT FASTINGP ERFORMED BY: [facility] Zohfqv8689 [address] [facility] [id number] Bacteria identified Cx Nom (U) Final report Normal [facility] Work Phone: Comment on above: PATIENT NOT FASTINGP ERFORMED BY: LILLIAN [facility] Wucltu6313 [address] [facility] [id number] URINE CATARINO CULTURE-IDENTIFICA TN (68915)Ordered By: Pocket Marker on 06-20-2014 Bacteria identified Cx Nom (U) Final report Abnormal [facility] Work Phone: Comment on above: PATIENT NOT FASTINGP ERFORMED BY: [facility] Juitbq5112 [facility] [id number] Information: [id number] Bacteria identified Cx Nom (U) Pseudomonas species Abnormal Comprehensiv e Internal Medicine Work Phone: Comment on above: 300 Colonies/mL PATIENT NOT FASTINGP ERFORMED BY: [facility] Hglqbv0774 [facility] [id number] Information: [id number] Other Antibiotic [Susc] MIHEAD Normal [facility] Work Phone: Comment on above: S = Susceptibl e; I = Intermediate; R = Resistant P = Positive; N = Negative MICS are expressed in micrograms per mL Antibiotic RSLT#1 RSLT#2 RSLT#3 RSLT#4Amikacin SAztreonam RCefepime SCefotaxime SCeftazidime SCeftriaxone SCiprofloxacin SGentamicin SImipenem SLevofloxacin SMeropenem SPiperacillin/Tazobactam STetracycline STicarcillin/Clavulanate STobramycin STrimethoprim/Sulfa S PATIENT NOT FASTINGP ERFORMED BY: LILLIAN [facility] Rbsgdj7530 [address] RoadSelect [facility]ty [facility] [id number] Information: [id number] Urinalysis, Office (61137)Or dered By: AFSHIN Nguyen on 06-20-2014 Bilirubin Ql (U) Negative Normal Comprehe nsive Internal Medicine Work Phone: Glucose Test strip (U) [Mass/Vol] Negative Normal [facility] Work Phone: Hemoglobin Ql (U) Hemolyzed Trace Normal Co mprehensive Internal Medicine Work Phone: Ketones Ql (U) Negative Normal Comprehens ricky Internal Medicine Work Phone: Leukocyte esterase Test strip Ql (U) Moderate Normal [facility] Work Phone: Nitrite Ql (U) Negative Normal Comprehens ricky Internal Medicine Work Phone: pH (U) 7.0 [pH] Normal [facility] Work Phone: Protein Ql (U) Negative Normal Comprehens ricky Internal Medicine Work Phone: Specific gravity (U) [Rel density] 1.020 1 Normal [facility] Work Phone: Urobilinogen (24H U) [Mass/Time] 2 mg/dL Normal [facility] Work Phone: URINE CATARINO CULTURE-ALYSSA COL C OUNT (21817)Ordered By: Pocket Marker on 03-01-2014 Bacteria identified Cx Nom (U) NG36 Normal [facility] Work Phone: Comment on above: No growth in 36 - 48 hours. PATIENT NOT FASTINGP ERFORMED BY: CB [facility] Gncysf7457 [facility] [id number] Information: SRC:UR F60002 Bacteria identified Cx Nom (U) Final report Normal [facility] Work Phone: Comment on above: PATIENT NOT FASTINGP ERFORMED BY: [facility] Wthdcx5781 [facility] [id number] Information: SRC:UR L34907 Urinalysis, Office (87580)Or dered By: AFSHIN Nguyen on 03-01-2014 Bilirubin Ql (U) Negative Normal Comprehe nsive Internal Medicine Work Phone: Glucose Test strip (U) [Mass/Vol] Negative Normal [facility] Work Phone: Hemoglobin Ql (U) Hemolyzed Small Normal Co mprehensive Internal Medicine Work Phone: Ketones Ql (U) Negative Normal Comprehens ricky Internal Medicine Work Phone: Leukocyte esterase Test strip Ql (U) Small Normal [facility] Work Phone: Nitrite Ql (U) Negative Normal Comprehens ricky Internal Medicine Work Phone: pH (U) 5.0 [pH] Normal [facility] Work Phone: Protein Ql (U) Negative Normal Comprehens ricky Internal Medicine Work Phone: Specific gravity (U) [Rel density] 1.010 1 Normal [facility] Work Phone: Urobilinogen (24H U) [Mass/Time] 2 mg/dL Normal [facility] Work Phone: Blood Glucose , Office (7696 2)Ordered By: Stephany Avina on 02-15-2014 Glucose Glucometer (BldC) [Moles/Vol] 111 1 Normal [facility] Work Phone: Comment on above: non-fasting HgA1C , Office (20408)Ordere d By: Stephany Avina on 02-15-2014 HbA1c (Bld) [Mass fraction] 5.7 % Normal 4.6 - 7.1 [facility] Work Phone: Blood Glucose , Office (8296 2)Ordered By: AFSHIN Nguyen on 11-05-2013 Glucose Glucometer (BldC) [Moles/Vol] 108 1 Normal [facility] Work Phone: HgA1C , Office (06597)Ordere d By: AFSHIN Nguyen on 11-05-2013 HbA1c (Bld) [Mass fraction] 5.3 % Normal 4.6 - 7.1 [facility] Work Phone: Blood Glucose , Office (8296 2)Ordered By: AFSHIN Nguyen on 08-06-2013 Glucose Glucometer (BldC) [Moles/Vol] 108 1 Normal [facility] Work Phone: HgA1C , Office (36608)Ordere d By: AFSHIN Nguyen on 08-06-2013 HbA1c (Bld) [Mass fraction] 5.8 % Normal 4.6 - 7.1 [facility] Work Phone: Blood Glucose , Office (8296 2)Ordered By: Stephany Avina on 05-07-2013 Glucose Glucometer (BldC) [Moles/Vol] 90 1 Normal [facility] Work Phone: Comment on above: non-fasting HgA1C , Office (83002)Ordere d By: Stephany Avina on 05-07-2013 HbA1c (Bld) [Mass fraction] 5.3 % Normal 4.6 - 7.1 [facility] Work Phone: Blood Glucose , Office (8296 2)Ordered By: Annie Contreras on 02-06-2013 Glucose Glucometer (BldC) [Moles/Vol] 79 1 Normal [facility] Work Phone: HgA1C , Office (96120)Ordere d By: Karlie Fields on 02-06-2013 HbA1c (Bld) [Mass fraction] 5.5 % Normal 4.6 - 7.1 [facility] Work Phone: Urinalysis, Office (34236)Or dered By: Karlie Fields on 10-05-2012 Bilirubin Ql (U) Negative Normal Comprehe nsive Internal Medicine Work Phone: Glucose Test strip (U) [Mass/Vol] Negative Normal [facility] Work Phone: Hemoglobin Ql (U) Negative Normal Compreh ensive Internal Medicine Work Phone: Ketones Ql (U) Negative Normal Comprehens ricky Internal Medicine Work Phone: Leukocyte esterase Test strip Ql (U) Trace Normal [facility] Work Phone: Nitrite Ql (U) Negative Normal Comprehens ricky Internal Medicine Work Phone: pH (U) 7.5 [pH] Normal [facility] Work Phone: Protein Ql (U) Negative Normal Comprehens ricky Internal Medicine Work Phone: Specific gravity (U) [Rel density] 1.015 1 Normal [facility] Work Phone: Urobilinogen (24H U) [Mass/Time] Normal Normal [facility] Work Phone: CBCMDOrdered By: Adolfo chopra on 01-06-2012 Eosinophils/100 WBC (Bld) 5 % Normal 0-5 [facility] Work Phone: Erythrocyte distribution width (RBC) [Ratio] 12.7 % Normal 11.6-14.6 [facility] Work Phone: Hematocrit (Bld) [Volume fraction] 38.8 % Normal 37-47 [facility] Work Phone: Hemoglobin (Bld) [Mass/Vol] 13.5 g/dL Normal 12.0-16.0 [facility] Work Phone: Lymphocytes/100 WBC (Bld) 45 % Abnormal 19-41 [facility] Work Phone: MCH (RBC) [Entitic mass] 31.0 pg Normal 27.0-32.0 [facility] Work Phone: MCHC (RBC) [Mass/Vol] 34.8 g/dL Normal 32-36 Com prehensive Internal Medicine Work Phone: MCV (RBC) [Entitic vol] 89.3 fL Normal 81-99 [facility] Work Phone: Neutrophils (Bld) [#/Vol] 2.9 3/uL Normal 2.0-7.7 [facility] Work Phone: Platelets (Bld) [#/Vol] 180 10*3/uL Normal 150-450 [facility] Work Phone: RBC (Bld) [#/Vol] NORM C+C Normal Compreh ensive Internal Medicine Work Phone: RBC (Bld) [#/Vol] 4.35 {M/mm3} Normal 4.2-5.4 Compr ehensive Internal Medicine Work Phone: WBC (Bld) [#/Vol] 5.1 10*3/uL Normal 4.4-11.0 Compre hensive Internal Medicine Work Phone: CBCMD ADEQUATE Normal [facility] Work Phone: CBCMD 3 % Normal 0-10 [facility] Work Phone: CBCMD 47 % Normal 47-70 [facility] Work Phone: CBCMD 100 1 Normal [facility] Work Phone: CMPOrdered By: System Manage r on 01-06-2012 Albumin [Mass/Vol] 3.8 g/dL Normal 3.4-5.0 Compre hensive Internal Medicine Work Phone: Albumin/Globulin [Mass ratio] 1.1 {RATIO} Normal 0.9-2.4 [facility] Work Phone: ALP [Catalytic activity/Vol] 61 U/L Normal 50-136 [facility] Work Phone: ALT [Catalytic activity/Vol] 29 U/L Normal 12-78 [facility] Work Phone: Anion gap [Moles/Vol] 8 mmol/L Normal 5-15 Com prehensive Internal Medicine Work Phone: AST [Catalytic activity/Vol] 18 U/L Normal 15-37 [facility] Work Phone: Bilirubin [Mass/Vol] 0.70 mg/dL Normal 0.00-1.00 [facility] rehensive Internal Medicine Work Phone: Calcium [Mass/Vol] 8.8 mg/dL Normal 8.5-10.1 [facility] Internal Medicine Work Phone: Chloride [Moles/Vol] 105 mmol/L Normal 98-107 [facility] rehensive Internal Medicine Work Phone: CO2 [Moles/Vol] 28.0 mmol/L Normal 21.0-32.0 [facility] Work Phone: Creatinine [Mass/Vol] 0.9 mg/dL Normal 0.6-1.0 [facility] Work Phone: GFR/1.73 sq M predicted among blacks MDRD (S/P/Bld) [Vol rate/Area] 82 mL/min/{1.73_m2} Normal Comprehensiv e Internal Medicine Work Phone: GFR/1.73 sq M.predicted MDRD (S/P/Bld) [Vol rate/Area] 68 mL/min/{1.73_m2} Normal [facility] Work Phone: GFR/1.73 sq M.predicted MDRD vol rate/area 68 mL/min/{1.73_m2} Normal [facility] Work Phone: Globulin (S) [Mass/Vol] 3.6 g/dL Normal 2.7-4.2 [facility] Internal [facility] Work Phone: Glucose [Mass/Vol] 93 mg/dL Normal 70-110 [facility] Internal [facility] Work Phone: Potassium [Moles/Vol] 4.0 mmol/L Normal 3.5-5.[address] [facility] Internal Medicine Work Phone: Protein [Mass/Vol] 7.4 g/dL Normal 6.4-8.2 [facility] Internal Medicine Work Phone: Sodium [Moles/Vol] 141 mmol/L Normal 136-145 [facility] Internal [facility] Work Phone: Urea nitrogen [Mass/Vol] 21 mg/dL Abnormal 7-18 [facility] Work Phone: Urea nitrogen/Creatinine [Mass ratio] 23.3 {RATIO} Abnormal 10-20 [facility] Work Phone: LIPIDOrdered By: System Kylie keysha on 01-06-2012 Cholesterol [Mass/Vol] 207 mg/dL Abnormal [facility] Work Phone: Comment on above: <200 mg/dL Desirable 200-240 mg/dL Borderline >240 mg/dL High Risk Cholesterol in HDL [Mass/Vol] 58 mg/dL Normal [facility] Work Phone: Comment on above: Reference Range HDL <40 mg/dL Low HDL Cholesterol HDL >or= 60 mg/dL High HDL Cholesterol Cholesterol in LDL [Mass/Vol] 128 mg/dL Normal 0-130 [facility] Work Phone: Cholesterol in VLDL [Mass/Vol] 21 mg/dL Normal 5-40 [facility] Work Phone: Triglyceride [Mass/Vol] 103 mg/dL Normal [facility] Work Phone: Comment on above: Serum Triglycerides Reference Interval Normal <150 mg/dL Borderline high 150 - 199 mg/dL High 200 - 499 mg/dL Very High > or = 500 mg/dL TSHOrdered By: System CivilGEO r on 01-06-2012 TSH Qn 2.68 {uIU/mL} Normal 0.358-3.74 [facility] Work Phone: Blood Glucose , Office ([phone])Ordered By: Annie Contreras on 09-25-2010 Glucose Glucometer (BldC) [Moles/Vol] 105 1 Normal [facility] Work Phone: HgA1C , Office ([phone])Ordere d By: Annie Contreras on 09-25-2010 HbA1c (Bld) [Mass fraction] 5.8 % Normal 4.6 - 7.1 [facility] Work Phone: Blood Glucose , Office ([phone])Ordered By: AFSHIN Nguyen on 06-18-2010 Glucose Glucometer (BldC) [Moles/Vol] 111 1 Normal [facility] Work Phone: HgA1C , Office ([phone])Ordere d By: AFSHIN Nguyen on 06-18-2010 HbA1c (Bld) [Mass fraction] 5.5 % Normal 4.6 - 7.1 [facility] Work Phone: Blood Glucose , Office ([phone])Ordered By: AFSHIN Nguyen on 03-17-2010 Glucose Glucometer (BldC) [Moles/Vol] 132 1 Normal [facility] Work Phone: HgA1C , Office ([phone])Ordere d By: AFSHIN Nguyen on 03-17-2010 HbA1c (Bld) [Mass fraction] 5.7 % Normal 4.6 - 7.1 [facility] Work Phone: Blood Glucose , Office ([phone])Ordered By: AFSHIN Nguyen on 11-07-2009 Glucose Glucometer (BldC) [Moles/Vol] 101 1 Normal [facility] Work Phone: HgA1C , Office ([phone])Ordere d By: Crystal Hernandez on 11-07-2009 HbA1c (Bld) [Mass fraction] 5.4 % Normal 4.6 - 7.1 [facility] Work Phone: Blood Glucose , Office ([phone])Ordered By: Gladys Cox on 04-15-2009 Glucose Glucometer (BldC) [Moles/Vol] 105 1 Normal [facility] Work Phone: HgA1C , Office ([phone])Ordere d By: Gladys Cox on 04-15-2009 HbA1c (Bld) [Mass fraction] 5.4 % Normal 4.6 - 7.1 [facility] Work Phone: HgA1C , Office ([phone])Ordere d By: AFSHIN Nguyen on 10-09-2008 HbA1c (Bld) [Mass fraction] 5.3 % Normal 4.6 - 7.1 [facility] Work Phone: Rapid Flu ([phone])Ordered By: Lela Bedolla on 09-12-2008 FLUAV Ag IA Ql (Throat) Negative Normal [facility] Work Phone: Comment on above: done BC Rapid Strep Test, Office ([phone])Ordered By: Lela Bedolla on 09-12-2008 S. pyogenes Ag IA Ql (Unsp spec) Negative Normal [facility] Work Phone: Comment on above: done BC Urinalysis, Office ([phone])Or dered By: Lacy Guerrero on 03-01-2007 Bilirubin Ql (U) Negative Normal [facility] Work Phone: Comment on above: done km Glucose Test strip (U) [Mass/Vol] Negative Normal [facility] Work Phone: Comment on above: done km Hemoglobin Ql (U) Negative Normal [facility] Work Phone: Comment on above: done km Ketones Ql (U) Negative Normal [facility] Work Phone: Comment on above: done km Leukocyte esterase Test strip Ql (U) Negative Normal [facility] Work Phone: Comment on above: done km Nitrite Ql (U) Negative Normal [facility] Work Phone: Comment on above: done km pH (U) 7.0 [pH] Normal [facility] Work Phone: Comment on above: done km Protein Ql (U) Negative Normal [facility] Work Phone: Comment on above: done km Specific gravity (U) [Rel density] 1.010 1 Normal [facility] Work Phone: Comment on above: done km Urobilinogen (24H U) [Mass/Time] Normal Normal [facility] Work Phone: Comment on above: done km Vital Signs Date Time Vital Sign Value Performing Clinician Facility 03-20-2025 08:25-0400 Body mass index (BMI) [Ratio] 24.41 kg/m2 Emma Schultz MD Work Phone[facility] 03-20-2025 08:25-0400 Body weight 62.51 kg Emma Schultz MD Work Phone: [facility] 03-20-2025 08:25-0400 Diastolic blood pressure 67 mm[Hg] Emma Schultz MD Work Phone: [facility] 03-20-2025 08:25-0400 Heart rate 71 /min Emma Schultz MD Work Phone: [facility] 03-20-2025 08:25-0400 Respiratory rate 16 /min Emma Schultz MD Work Phone: [facility] 03-20-2025 08:25-0400 Systolic blood pressure 111 mm[Hg] Emma Schultz MD Work Phone: [facility] 02-15-2025 13:01-0400 Body mass index (BMI) [Ratio] 23.84 kg/m2 Jessica Older 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 Work Phone: [facility] 02-15-2025 13:01-0400 Body weight 61.05 kg Jessica Older 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 Work Phone: [facility] 02-15-2025 13:01-0400 Diastolic blood pressure 64 mm[Hg] Jessica Older 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 Work Phone: [facility] 02-15-2025 13:01-0400 Heart rate 71 /min Jessica Older 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 Work Phone: [facility] 02-15-2025 13:01-0400 SaO2% (BldA) [Mass fraction] 98 % Jessica Older 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 Work Phone: [facility] 02-15-2025 13:01-0400 Systolic blood pressure 100 mm[Hg] Jessica Older 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 Work Phone: [facility] 01-28-2025 09:35-0400 Body mass index (BMI) [Ratio] 23.74 kg/m2 Emma Schultz MD Work Phone: [facility] 01-28-2025 09:35-0400 Body weight 60.78 kg Emma Schultz MD Work Phone: [facility] 01-28-2025 09:35-0400 Diastolic blood pressure 80 mm[Hg] Emma Schultz MD Work Phone: [facility] 01-28-2025 09:35-0400 Heart rate 60 /min Emma Schultz MD Work Phone: [facility] 01-28-2025 09:35-0400 SaO2% (BldA) [Mass fraction] 98 % Emma Schultz MD Work Phone: [facility] 01-28-2025 09:35-0400 Systolic blood pressure 122 mm[Hg] Emma Schultz MD Work Phone: [facility] 01-16-2025 08:18-0400 Body height 160 cm Yamilka Wilde 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 Work Phone: [facility] 01-16-2025 08:18-0400 Body mass index (BMI) [Ratio] 23.99 kg/m2 Yamilka Wilde 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 Work Phone: [facility] 01-16-2025 08:18-0400 Body weight 61.42 kg Yamilka Wilde 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 Work Phone: [facility] 01-16-2025 08:18-0400 Diastolic blood pressure 70 mm[Hg] Yamilka Wilde 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 Work Phone: [facility] 01-16-2025 08:18-0400 Heart rate 67 /min Yamilka Wilde 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 Work Phone: [facility] 01-16-2025 08:18-0400 Respiratory rate 16 /min Yamilka Wilde 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 Work Phone: [facility] 01-16-2025 08:18-0400 SaO2% (BldA) [Mass fraction] 98 % Yamilka Wilde 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 Work Phone: [facility] Comment on above: RA 01-16-2025 08:18-0400 Systolic blood pressure 112 mm[Hg] Yamilka Wilde 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 Work Phone: [facility] 12-24-2024 09:18-0400 Body mass index (BMI) [Ratio] 24.2 kg/m2 Emma Schultz MD Work Phone: [facility] 12-24-2024 09:18-0400 Body temperature 99 [degF] Emma Schultz MD Work Phone: [facility] 12-24-2024 09:18-0400 Body weight 61.96 kg Emma Schultz MD Work Phone: [facility] 12-24-2024 09:18-0400 Diastolic blood pressure 67 mm[Hg] Emma Schultz MD Work Phone: [facility] 12-24-2024 09:18-0400 Heart rate 66 /min Emma Schultz MD Work Phone: [facility] 12-24-2024 09:18-0400 Respiratory rate 16 /min Emma Schultz MD Work Phone: [facility] 12-24-2024 09:18-0400 SaO2% (BldA) [Mass fraction] 100 % Emma Schultz MD Work Phone: [facility] 12-24-2024 09:18-0400 Systolic blood pressure 114 mm[Hg] Emma Schultz MD Work Phone: [facility] 11-27-2024 09:18-0400 Body height 160 cm Emma Schultz MD Work Phone: [facility] 11-27-2024 09:18-0400 Body mass index (BMI) [Ratio] 24.06 kg/m2 Emma Schultz MD Work Phone: [facility] 11-27-2024 09:18-0400 Body weight 61.6 kg Emma Schultz MD Work Phone: [facility] 11-27-2024 09:18-0400 Diastolic blood pressure 71 mm[Hg] Emma Schultz MD Work Phone: [facility] 11-27-2024 09:18-0400 Heart rate 63 /min Emma Schultz MD Work Phone: [facility] 11-27-2024 09:18-0400 SaO2% (BldA) [Mass fraction] 99 % Emma Schultz MD Work Phone: [facility] 11-27-2024 09:18-0400 Systolic blood pressure 112 mm[Hg] Emma Schultz MD Work Phone: [facility] 05-07-2024 10:33-0500 Body mass index (BMI) [Ratio] 23.17 kg/m2 Emma Schultz MD Work Phone: [facility] 05-07-2024 10:33-0500 Body weight 61.24 kg Emma Schultz MD Work Phone: [facility] 05-07-2024 10:33-0500 Diastolic blood pressure 74 mm[Hg] Emma Schultz MD Work Phone: [facility] 05-07-2024 10:33-0500 Heart rate 63 /min Emma Schultz MD Work Phone: [facility] 05-07-2024 10:33-0500 Respiratory rate 16 /min Emma Schultz MD Work Phone: [facility] 05-07-2024 10:33-0500 Systolic blood pressure 124 mm[Hg] Emma Schultz MD Work Phone: [facility] 04-26-2024 08:52-0400 Body mass index (BMI) [Ratio] 23.28 kg/m2 Emma Schultz MD Work Phone: [facility] 04-26-2024 08:52-0400 Body weight 61.51 kg Emma Schultz MD Work Phone: [facility] 04-26-2024 08:52-0400 Diastolic blood pressure 72 mm[Hg] Emma Schultz MD Work Phone: [facility] 04-26-2024 08:52-0400 Heart rate 70 /min Emma Schultz MD Work Phone: [facility] 04-26-2024 08:52-0400 SaO2% (BldA) [Mass fraction] 99 % Emma Schultz MD Work Phone: [facility] 04-26-2024 08:52-0400 Systolic blood pressure 112 mm[Hg] Emma Schultz MD Work Phone: [facility] 10-24-2023 13:20-0400 Body mass index (BMI) [Ratio] 23.34 kg/m2 Jessica Older 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 Work Phone: [facility] 10-24-2023 13:20-0400 Body weight 61.69 kg Jessica Older 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 Work Phone: [facility] 10-24-2023 13:20-0400 Diastolic blood pressure 68 mm[Hg] Jessica Older 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 Work Phone: [facility] 10-24-2023 13:20-0400 Heart rate 68 /min Jessica Older 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 Work Phone: [facility] 10-24-2023 13:20-0400 Respiratory rate 16 /min Jessica Older 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 Work Phone: [facility] 10-24-2023 13:20-0400 SaO2% (BldA) [Mass fraction] 99 % Jessica Older 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 Work Phone: [facility] 10-24-2023 13:20-0400 Systolic blood pressure 118 mm[Hg] Jessica Older 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 Work Phone: [facility] 08-13-2023 10:53-0500 Body temperature 100.09 [degF] Neil Oropeza MD Work Phone: [facility] 06-10-2023 08:38-0500 Body weight 61.69 kg Jessica Older 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 Work Phone: [facility] 06-10-2023 08:38-0500 Diastolic blood pressure 76 mm[Hg] Jessica Older 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 Work Phone: [facility] 06-10-2023 08:38-0500 Heart rate 64 /min Jessica Older 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 Work Phone: [facility] 06-10-2023 08:38-0500 Respiratory rate 16 /min Jessica Older 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 Work Phone: [facility] 06-10-2023 08:38-0500 SaO2% (BldA) [Mass fraction] 99 % Jessica Older 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 Work Phone: [facility] 06-10-2023 08:38-0500 Systolic blood pressure 120 mm[Hg] Jessica Older 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 Work Phone: [facility] 06-10-2022 11:08-0500 Body weight 59.88 kg Emma Schultz MD Work Phone: [facility] 06-10-2022 11:08-0500 Diastolic blood pressure 70 mm[Hg] Emma Schultz MD Work Phone: [facility] 06-10-2022 11:08-0500 Heart rate 66 /min Emma Schultz MD Work Phone: [facility] 06-10-2022 11:08-0500 Respiratory rate 16 /min Emma Schultz MD Work Phone: [facility] 06-10-2022 11:08-0500 SaO2% (BldA) [Mass fraction] 98 % Emma Schultz MD Work Phone: [facility] 06-10-2022 11:08-0500 Systolic blood pressure 118 mm[Hg] Emma Schultz MD Work Phone: [facility] 04-07-2022 15:15-0400 Body height 162.6 cm Emma Schultz MD Work Phone: [facility] 04-07-2022 15:15-0400 Body temperature 98.49 [degF] Emma Schultz MD Work Phone: [facility] 04-07-2022 15:15-0400 Body weight 59.88 kg Emma Schultz MD Work Phone: [facility] 04-07-2022 15:15-0400 Diastolic blood pressure 64 mm[Hg] Emma Schultz MD Work Phone: [facility] 04-07-2022 15:15-0400 Heart rate 62 /min Emma Schultz MD Work Phone: [facility] 04-07-2022 15:15-0400 Respiratory rate 12 /min Emma Schultz MD Work Phone: [facility] 04-07-2022 15:15-0400 SaO2% (BldA) [Mass fraction] 100 % Emma Schultz MD Work Phone: [facility] 04-07-2022 15:15-0400 Systolic blood pressure 122 mm[Hg] Emma Schultz MD Work Phone: [facility] 02-19-2022 11:19-0400 Body weight 58.97 kg Jessica Older 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 Work Phone: [facility] 02-19-2022 11:19-0400 Diastolic blood pressure 68 mm[Hg] Jessica Older 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 Work Phone: [facility] 02-19-2022 11:19-0400 Heart rate 56 /min Jessica Older 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 Work Phone: [facility] 02-19-2022 11:19-0400 Respiratory rate 16 /min Jessica Older 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 Work Phone: [facility] 02-19-2022 11:19-0400 Systolic blood pressure 122 mm[Hg] Jessica Older 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 Work Phone: [facility] 12-08-2021 13:05-0400 Body height 162.6 cm Emma Schultz MD Work Phone: [facility] 12-08-2021 13:05-0400 Body temperature 98.71 [degF] Emma Schultz MD Work Phone: [facility] 12-08-2021 13:05-0400 Body weight 58.06 kg Emma Schultz MD Work Phone: [facility] 12-08-2021 13:05-0400 Diastolic blood pressure 62 mm[Hg] Emma Schultz MD Work Phone: [facility] 12-08-2021 13:05-0400 Heart rate 58 /min Emma Schultz MD Work Phone: [facility] 12-08-2021 13:05-0400 Respiratory rate 12 /min Emma Schultz MD Work Phone: [facility] 12-08-2021 13:05-0400 SaO2% (BldA) [Mass fraction] 99 % Emma Schultz MD Work Phone: [facility] 12-08-2021 13:05-0400 Systolic blood pressure 128 mm[Hg] Emma Schultz MD Work Phone: [facility] 11-15-2016 11:05-0400 BMI (Body Mass Index) 24.78 kg/m2 [facility] Work [facility]: 11-15-2016 11:05-0400 Body Temperature 98.2 [degF] [facility] Work Phone: Comment on above: Method: Temporal 11-15-2016 11:05-0400 Body weight 63.96 [facility] Work [facility]: 11-15-2016 11:05-0400 BP Diastolic 74 mm[Hg] [facility] Work Phone: Comment on above: Patient Position: Sitting; Cuff Location : Left Arm; Cuff Size: Standard 11-15-2016 11:05-0400 BP Systolic 114 mm[Hg] [facility] Work [facility]: Comment on above: Patient Position: Sitting; Cuff Location : Left Arm; Cuff Size: Standard 11-15-2016 11:05-0400 BSA (Body Surface Area) 1.67 m2 [facility] Work Phone: 11-15-2016 11:05-0400 Height 160.66 cm [facility] Work Phone: 11-15-2016 11:05-0400 Pulse (Heart Rate) 58 /min Crystal Hernandez [facility] Work Phone: Comment on above: Pattern: Regular 11-15-2016 11:05-0400 Pulse Oximetry 98 % Crystal Hernandez [facility] Work Phone: Comment on above: Room air 11-15-2016 11:05-0400 Respiratory Rate 18 /min Crystal Hernandez [facility] Work Phone: Comment on above: Pattern: Unlabored 11-15-2016 11:05-0400 Weight 63.96 kg Crystal Hernandez [facility] Work Phone: 08-17-2016 12:56-0500 BMI (Body Mass Index) 25.48 kg/m2 Crystal Hernandez [facility] Work Phone: 08-17-2016 12:56-0500 Body Temperature 97.9 [degF] Crystal Hernandez [facility] Work Phone: Comment on above: Method: Temporal 08-17-2016 12:56-0500 Body weight 65.77 kg Crystal Hernandez [facility] Work Phone: 08-17-2016 12:56-0500 BP Diastolic 76 mm[Hg] Crystal Hernandez [facility] Work Phone: Comment on above: Patient Position: Sitting; Cuff Location : Left Arm; Cuff Size: Standard 08-17-2016 12:56-0500 BP Systolic 110 mm[Hg] [facility] Work Phone: Comment on above: Patient Position: Sitting; Cuff Location : Left Arm; Cuff Size: Standard 08-17-2016 12:56-0500 BSA (Body Surface Area) 1.69 m2 Crystal Hernandez [facility] Work Phone: 08-17-2016 12:56-0500 Height 160.66 cm [facility] Work Phone: 08-17-2016 12:56-0500 Pulse (Heart Rate) 67 /min Crystal Hernandez [facility] Work Phone: Comment on above: Pattern: Regular 08-17-2016 12:56-0500 Pulse Oximetry 98 % Crystal Hernandez [facility] Work Phone: Comment on above: Room air 08-17-2016 12:56-0500 Respiratory Rate 20 /min Crystal Hernandez [facility] Work Phone: Comment on above: Pattern: Unlabored 08-17-2016 12:56-0500 Weight 65.77 kg Crystal Hernandez [facility] Work Phone: 07-12-2016 09:56-0500 BMI (Body Mass Index) 24.15 kg/m2 Crystal Hernandez [facility] Work Phone: 07-12-2016 09:56-0500 Body Temperature 97.6 [degF] [facility] Work Phone: Comment on above: Method: Temporal 07-12-2016 09:56-0500 Body weight 65.32 kg Crystal Hernandez [facility] Work Phone: 07-12-2016 09:56-0500 BP Diastolic 80 mm[Hg] Crystal Forrest [facility] Work Phone: Comment on above: Patient Position: Sitting; Cuff Location : Left Arm; Cuff Size: Standard 07-12-2016 09:56-0500 BP Systolic 120 mm[Hg] [facility] Work Phone: Comment on above: Patient Position: Sitting; Cuff Location : Left Arm; Cuff Size: Standard 07-12-2016 09:56-0500 BSA (Body Surface Area) 1.72 m2 Crystal Hernandez [facility] Work Phone: 07-12-2016 09:56-0500 Height 164.47 cm Crystal Hernandez [facility] Work Phone: 07-12-2016 09:56-0500 Pulse (Heart Rate) 78 /min Crystal Hernandez [facility] Work Phone: Comment on above: Pattern: Regular 07-12-2016 09:56-0500 Pulse Oximetry 97 % Crystal Hernandez [facility] Work Phone: Comment on above: Room air 07-12-2016 09:56-0500 Respiratory Rate 74 /min Crystal Hernandez [facility] Work Phone: Comment on above: Pattern: Unlabored 07-12-2016 09:56-0500 Weight 65.32 kg Crystal Hernandez [facility] Work Phone: 05-25-2016 08:54-0500 BMI (Body Mass Index) 23.31 kg/m2 Crystal Hernandez [facility] Work Phone: 05-25-2016 08:54-0500 Body Temperature 98 [degF] Crystal Hernandez [facility] Work Phone: Comment on above: Method: Temporal 05-25-2016 08:54-0500 Body weight 63.05 kg Crystal Hernandez [facility] Work Phone: 05-25-2016 08:54-0500 BP Diastolic 72 mm[Hg] Crystal [facility] Work Phone: Comment on above: Patient Position: Sitting; Cuff Location : Left Arm; Cuff Size: Standard 05-25-2016 08:54-0500 BP Systolic 114 mm[Hg] Crystal Hernandez [facility] Work Phone: Comment on above: Patient Position: Sitting; Cuff Location : Left Arm; Cuff Size: Standard 05-25-2016 08:54-0500 BSA (Body Surface Area) 1.69 m2 Crystal Hernandez [facility] Work Phone: 05-25-2016 08:54-0500 Height 164.47 cm Crystal Hernandez [facility] Work Phone: 05-25-2016 08:54-0500 Pulse (Heart Rate) 66 /min Crystal Hernandez [facility] Work Phone: Comment on above: Pattern: Regular 05-25-2016 08:54-0500 Pulse Oximetry 99 % Crystal Forresti [facility] Work Phone: Comment on above: Room air 05-25-2016 08:54-0500 Respiratory Rate 15 /min Crystal Hernandez [facility] Work Phone: Comment on above: Pattern: Unlabored 05-25-2016 08:54-0500 Weight 63.05 kg Crystal Hernandez [facility] Work Phone: 03-25-2016 13:37-0400 BMI (Body Mass Index) 23.31 kg/m2 Crystal Hernandez [facility] Work Phone: 03-25-2016 13:37-0400 Body Temperature 97.9 [degF] Crystal [facility] Work Phone: Comment on above: Method: Temporal 03-25-2016 13:37-0400 Body weight 63.05 kg Crystal Hernandez [facility] Work Phone: 03-25-2016 13:37-0400 BP Diastolic 80 mm[Hg] Crystal [facility] Work Phone: Comment on above: Patient Position: Sitting; Cuff Location : Left Arm; Cuff Size: Standard 03-25-2016 13:37-0400 BP Systolic 120 mm[Hg] Crystal Hernandez [facility] Work Phone: Comment on above: Patient Position: Sitting; Cuff Location : Left Arm; Cuff Size: Standard 03-25-2016 13:37-0400 BSA (Body Surface Area) 1.69 m2 Crystal Hernandez [facility] Work Phone: 03-25-2016 13:37-0400 Height 164.47 cm Crystal Hernandez [facility] Work Phone: 03-25-2016 13:37-0400 Pulse (Heart Rate) 70 /min Crystal Forresti [facility] Work Phone: Comment on above: Pattern: Regular 03-25-2016 13:37-0400 Pulse Oximetry 99 % Crystal Forresti [facility] Work Phone: Comment on above: Room air 03-25-2016 13:37-0400 Respiratory Rate 20 /min Crystal Bone[facility] Work Phone: Comment on above: Pattern: Unlabored 03-25-2016 13:37-0400 Weight 63.05 kg Crystal Hernandez [facility] Work Phone: 01-06-2016 13:28-0400 BMI (Body Mass Index) 23.31 kg/m2 Crystal [facility] Work Phone: 01-06-2016 13:28-0400 Body Temperature 97.8 [degF] Crystal Hernandez [facility] Work Phone: Comment on above: Method: Temporal 01-06-2016 13:28-0400 Body weight 63.05 kg Crystal Hernandez [facility] Work Phone: 01-06-2016 13:28-0400 BP Diastolic 70 mm[Hg] Crystal Hernandez [facility] Work Phone: Comment on above: Patient Position: Sitting; Cuff Location : Left Arm; Cuff Size: Standard 01-06-2016 13:28-0400 BP Systolic 116 mm[Hg] Crystal Hernandez [facility] Work Phone: Comment on above: Patient Position: Sitting; Cuff Location : Left Arm; Cuff Size: Standard 01-06-2016 13:28-0400 BSA (Body Surface Area) 1.69 m2 Crystal Hernandez [facility] Work Phone: 01-06-2016 13:28-0400 Height 164.47 cm Crystal Hernandez [facility] Work Phone: 01-06-2016 13:28-0400 Pulse (Heart Rate) 68 /min [facility] Services Internal Medicine Work Phone: Comment on above: Pattern: Regular 01-06-2016 13:28-0400 Pulse Oximetry 97 % Crystal Hernandez [facility] Internal Medicine Work Phone: Comment on above: Room air 01-06-2016 13:28-0400 Respiratory Rate 18 /min Crystal Hernandez [facility] Internal Medicine Work Phone: Comment on above: Pattern: Unlabored 01-06-2016 13:28-0400 Weight 63.05 kg Crystal [facility] Internal Medicine Work Phone: 10-27-2015 08:12-0400 BMI (Body Mass Index) 24.32 kg/m2 [facility]: 10-27-2015 08:12-0400 Body Temperature 97.9 [degF] [facility] Work [facility]: Comment on above: Method: Temporal 10-27-2015 08:12-0400 Body weight 65.77 kg [facility] Work [facility]: 10-27-2015 08:12-0400 BP Diastolic 80 mm[Hg] [facility] Work [facility]: Comment on above: Patient Position: Sitting; Cuff Location : Left Arm; Cuff Size: Standard 10-27-2015 08:12-0400 BP Systolic 120 mm[Hg] [facility]: Comment on above: Patient Position: Sitting; Cuff Location : Left Arm; Cuff Size: Standard 10-27-2015 08:12-0400 BSA (Body Surface Area) 1.72 m2 Crystal [facility] Internal Medicine Work Phone: 10-27-2015 08:12-0400 Height 164.47 cm [facility] Work [facility]: 10-27-2015 08:12-0400 Pulse (Heart Rate) 64 /min [facility] Work [facility]: Comment on above: Pattern: Regular 10-27-2015 08:12-0400 Pulse Oximetry 97 % [facility] Work [facility]: Comment on above: Room air 10-27-2015 08:12-0400 Respiratory Rate 20 /min Crystal [facility] Work Phone: Comment on above: Pattern: Unlabored 10-27-2015 08:12-0400 Weight 65.77 kg Crystal [facility] Work Phone: 05-12-2015 11:10-0500 BMI (Body Mass Index) 23.82 kg/m2 Crystal Hernandez [facility] Work Phone: 05-12-2015 11:10-0500 Body Temperature 97.9 [degF] Crystal Hernandez [facility] Work Phone: Comment on above: Method: Temporal 05-12-2015 11:10-0500 Body weight 64.43 kg Crystal Hernandez [facility] Work Phone: 05-12-2015 11:10-0500 BP Diastolic 64 mm[Hg] Crystal [facility] Work Phone: Comment on above: Patient Position: Sitting; Cuff Location : Left Arm; Cuff Size: Standard 05-12-2015 11:10-0500 BP Systolic 108 mm[Hg] [facility] Work Phone: Comment on above: Patient Position: Sitting; Cuff Location : Left Arm; Cuff Size: Standard 05-12-2015 11:10-0500 BSA (Body Surface Area) 1.71 m2 Crystal [facility] Work Phone: 05-12-2015 11:10-0500 Height 164.47 cm Crystal [facility] Work Phone: 05-12-2015 11:10-0500 Pulse (Heart Rate) 64 /min Crystal [facility] Work Phone: Comment on above: Pattern: Regular 05-12-2015 11:10-0500 Pulse Oximetry 98 % [facility] Work Phone: Comment on above: Room air 05-12-2015 11:10-0500 Respiratory Rate 18 /min [facility] Work Phone: Comment on above: Pattern: Unlabored 05-12-2015 11:10-0500 Weight 64.43 kg Crystal Hernandez [facility] Internal Medicine Work Phone: 04-23-2015 09:02-0400 BMI (Body Mass Index) 23.81 kg/m2 Crystal Hernandez [facility] Work Phone: 04-23-2015 09:02-0400 Body weight 64.41 kg Crystal Hernandez [facility] Work Phone: 04-23-2015 09:02-0400 BP Diastolic 62 mm[Hg] Crystal Loni [facility] Work Phone: Comment on above: Patient Position: Sitting; Cuff Location : Left Arm; Cuff Size: Standard 04-23-2015 09:02-0400 BP Systolic 118 mm[Hg] Crystal [facility] Work Phone: Comment on above: Patient Position: Sitting; Cuff Location : Left Arm; Cuff Size: Standard 04-23-2015 09:02-0400 BSA (Body Surface Area) 1.71 m2 Crystal [facility] Work Phone: 04-23-2015 09:02-0400 Height 164.47 cm Crystal Forrest [facility] Work Phone: 04-23-2015 09:02-0400 Pulse (Heart Rate) 65 /min Crystal [facility] Work Phone: Comment on above: Pattern: Regular 04-23-2015 09:02-0400 Pulse Oximetry 98 % Crystal [facility] Work Phone: Comment on above: Room air 04-23-2015 09:02-0400 Respiratory Rate 16 /min [facility] Work Phone: Comment on above: Pattern: Unlabored 04-23-2015 09:02-0400 Weight 64.41 kg Crystal [facility] Work Phone: 10-21-2014 08:49-0400 BMI (Body Mass Index) 24.65 kg/m2 Crystal [facility] Work Phone: 10-21-2014 08:49-0400 Body Temperature 97.4 [degF] Crystal Forresti [facility] Work Phone: Comment on above: Method: Temporal 10-21-2014 08:49-0400 Body weight 66.68 kg Crystal Hernandez [facility] Work Phone: 10-21-2014 08:49-0400 BP Diastolic 70 mm[Hg] Crystal [facility] Work Phone: Comment on above: Patient Position: Sitting; Cuff Location : Left Arm; Cuff Size: Standard 10-21-2014 08:49-0400 BP Systolic 112 mm[Hg] Crystal [facility] Work Phone: Comment on above: Patient Position: Sitting; Cuff Location : Left Arm; Cuff Size: Standard 10-21-2014 08:49-0400 BSA (Body Surface Area) 1.73 m2 Crystal [facility] Work Phone: 10-21-2014 08:49-0400 Height 164.47 cm Crysatl Forrest [facility] Work Phone: 10-21-2014 08:49-0400 Pulse (Heart Rate) 70 /min Crystal [facility] Work Phone: Comment on above: Pattern: Regular 10-21-2014 08:49-0400 Pulse Oximetry 97 % Crystal [facility] Work Phone: Comment on above: Room air 10-21-2014 08:49-0400 Respiratory Rate 18 /min Crystal [facility] Work Phone: Comment on above: Pattern: Unlabored 10-21-2014 08:49-0400 Weight 66.68 kg Crystal Hernandez [facility] Work Phone: 06-20-2014 10:10-0500 BMI (Body Mass Index) 24.65 kg/m2 Crystal [facility] Work Phone: 06-20-2014 10:10-0500 Body Temperature 97.5 [degF] Crystal [facility] Work Phone: Comment on above: Method: Temporal 06-20-2014 10:10-0500 Body weight 66.68 kg Crystal Hernandez [facility] Work Phone: 06-20-2014 10:10-0500 BP Diastolic 70 mm[Hg] Crystal [facility] Work Phone: Comment on above: Patient Position: Sitting; Cuff Location : Left Arm; Cuff Size: Standard 06-20-2014 10:10-0500 BP Systolic 114 mm[Hg] Crystal Hernandez [facility] Work Phone: Comment on above: Patient Position: Sitting; Cuff Location : Left Arm; Cuff Size: Standard 06-20-2014 10:10-0500 BSA (Body Surface Area) 1.73 m2 Crystal Hernandez [facility] Internal Medicine Work Phone: 06-20-2014 10:10-0500 Height 164.47 cm Crystal Hernandez [facility] Internal Medicine Work Phone: 06-20-2014 10:10-0500 Pulse (Heart Rate) 72 /min Crystal Hernandez [facility] Internal Medicine Work Phone: Comment on above: Pattern: Regular 06-20-2014 10:10-0500 Pulse Oximetry 97 % Crystal Hernandez [facility] Internal Medicine Work Phone: Comment on above: Room air 06-20-2014 10:10-0500 Respiratory Rate 18 /min Crystal Hernandez [facility] Internal Medicine Work Phone: Comment on above: Pattern: Unlabored 06-20-2014 10:10-0500 Weight 66.68 kg Crystal Hernandez [facility] Internal Medicine Work Phone: 03-01-2014 11:36-0400 BMI (Body Mass Index) 25.32 kg/m2 Crystal Hernandez [facility] Internal Medicine Work Phone: 03-01-2014 11:36-0400 Body Temperature 97.6 [degF] Crystal Hernandez [facility] Internal Medicine Work Phone: Comment on above: Method: Oral 03-01-2014 11:36-0400 Body weight 68.49 kg Crystal Hernandez [facility] Internal Medicine Work Phone: 03-01-2014 11:36-0400 BP Diastolic 78 mm[Hg] [facility] Internal Medicine Work Phone: Comment on above: Patient Position: Sitting; Cuff Location : Left Arm; Cuff Size: Standard 03-01-2014 11:36-0400 BP Systolic 118 mm[Hg] [facility] Internal Medicine Work Phone: Comment on above: Patient Position: Sitting; Cuff Location : Left Arm; Cuff Size: Standard 03-01-2014 11:36-0400 BSA (Body Surface Area) 1.75 m2 [facility] Internal Medicine Work Phone: 03-01-2014 11:36-0400 Height 164.47 cm [facility] Internal Medicine Work Phone: 03-01-2014 11:36-0400 Pulse (Heart Rate) 68 /min [facility] Internal Medicine Work Phone: Comment on above: Pattern: Regular 03-01-2014 11:36-0400 Respiratory Rate 20 /min [facility] Internal Medicine Work Phone: Comment on above: Pattern: Unlabored 03-01-2014 11:36-0400 Weight 68.49 kg [facility] Internal Medicine Work Phone: 02-15-2014 09:48-0400 BMI (Body Mass Index) 25.32 kg/m2 [facility] Internal Medicine Work Phone: 02-15-2014 09:48-0400 Body weight 68.49 kg [facility] Internal Medicine Work Phone: 02-15-2014 09:48-0400 BP Diastolic 62 mm[Hg] [facility] Internal Medicine Work Phone: Comment on above: Patient Position: Sitting; Cuff Location : Left Arm; Cuff Size: Standard 02-15-2014 09:48-0400 BP Systolic 115 mm[Hg] [facility] Internal Medicine Work Phone: Comment on above: Patient Position: Sitting; Cuff Location : Left Arm; Cuff Size: Standard 02-15-2014 09:48-0400 BSA (Body Surface Area) 1.75 m2 [facility] Work [facility]: 02-15-2014 09:48-0400 Height 164.47 cm Crystal [facility] Internal Medicine Work Phone: 02-15-2014 09:48-0400 Pulse (Heart Rate) 62 /min Crystal [facility] Internal Medicine Work Phone: Comment on above: Pattern: Regular 02-15-2014 09:48-0400 Pulse Oximetry 98 % [facility] Work [facility]: Comment on above: Room air 02-15-2014 09:48-0400 Respiratory Rate 16 /min [facility] Work Phone: Comment on above: Pattern: Unlabored 02-15-2014 09:48-0400 [facility]: 11-05-2013 10:07-0400 BMI (Body Mass Index) 26.17 kg/m2 [facility] Work Phone: 11-05-2013 10:07-0400 Body Temperature 97.6 [degF] [facility]: Comment on above: Method: Oral 11-05-2013 10:07-0400 Body weight 70.79 kg [facility] Work Phone: 11-05-2013 10:07-0400 BP Diastolic 78 mm[Hg] [facility] Internal Medicine Work Phone: Comment on above: Patient Position: Sitting; Cuff Location : Left Arm; Cuff Size: Standard 11-05-2013 10:07-0400 BP Systolic 114 mm[Hg] [facility] Internal Medicine Work Phone: Comment on above: Patient Position: Sitting; Cuff Location : Left Arm; Cuff Size: Standard 11-05-2013 10:07-0400 BSA (Body Surface Area) 1.78 m2 [facility] Work [facility]: 11-05-2013 10:07-0400 Height 164.47 cm Crystal [facility] Work Phone: 11-05-2013 10:07-0400 Pulse (Heart Rate) 74 /min Crystal Loni [facility] Work Phone: Comment on above: Pattern: Regular 11-05-2013 10:07-0400 Respiratory Rate 20 /min Crystal Forresti [facility] Internal Medicine Work Phone: Comment on above: Pattern: Unlabored 11-05-2013 10:07-0400 Weight 70.79 kg Crystal [facility] Internal Medicine Work Phone: 08-06-2013 10:09-0500 BMI (Body Mass Index) 26.33 kg/m2 [facility] Work Phone: 08-06-2013 10:09-0500 Body Temperature 97.6 [degF] [facility] Work [facility]: Comment on above: Method: Oral 08-06-2013 10:090500 Body weight 71.22 kg Crystal [facility] Internal Medicine Work Phone: 08-06-2013 10:09-0500 BP Diastolic 78 mm[Hg] [facility] Work Phone: Comment on above: Patient Position: Sitting; Cuff Location : Left Arm; Cuff Size: Standard 08-06-2013 10:09-0500 BP Systolic 116 mm[Hg] [facility] Work Phone: Comment on above: Patient Position: Sitting; Cuff Location : Left Arm; Cuff Size: Standard 08-06-2013 10:09-0500 BSA (Body Surface Area) 1.78 m2 [facility] Work Phone: 08-06-2013 10:09-0500 Height 164.47 cm [facility] Work Phone: 08-06-2013 10:09-0500 Pulse (Heart Rate) 72 /min Crystal Moyzzi [facility] Work Phone: Comment on above: Pattern: Regular 08-06-2013 10:09-0500 Respiratory Rate 18 /min Crystal Hernandez [facility] Internal Medicine Work Phone: Comment on above: Pattern: Unlabored 08-06-2013 10:09-0500 Weight 71.22 kg Crystal Hernandez [facility] Internal Medicine Work Phone: 05-07-2013 10:21-0500 BMI (Body Mass Index) 25.67 kg/m2 Crystal Hernandez [facility] Work Phone: 05-07-2013 10:21-0500 Body Temperature 98.2 [degF] Crystal Hernandez [facility] Internal Medicine Work Phone: Comment on above: Method: Oral 05-07-2013 10:21-0500 Body weight 69.45 kg Crystal Hernandez [facility] Internal Medicine Work Phone: 05-07-2013 10:21-0500 BP Diastolic 78 mm[Hg] Crystal Hernandez [facility] Internal Medicine Work Phone: Comment on above: Patient Position: Sitting; Cuff Location : Left Arm; Cuff Size: Standard 05-07-2013 10:21-0500 BP Systolic 118 mm[Hg] Crystal Hernandez [facility] Internal Medicine Work Phone: Comment on above: Patient Position: Sitting; Cuff Location : Left Arm; Cuff Size: Standard 05-07-2013 10:21-0500 BSA (Body Surface Area) 1.76 m2 Crystal Hernandez [facility] Internal Medicine Work Phone: 05-07-2013 10:21-0500 Height 164.47 cm Crystal Hernandez [facility] Internal Medicine Work Phone: 05-07-2013 10:21-0500 Pulse (Heart Rate) 65 /min Crystal Hernandez [facility] Internal Medicine Work Phone: Comment on above: Pattern: Regular 05-07-2013 10:21-0500 Pulse Oximetry 98 % Crystal Hernandez [facility] Internal Medicine Work Phone: Comment on above: Room air 05-07-2013 10:21-0500 Respiratory Rate 16 /min Crystal Hernandez [facility] Internal Medicine Work Phone: Comment on above: Pattern: Unlabored 05-07-2013 10:21-0500 Weight 69.45 kg Crystal Hernandez [facility] Internal Medicine Work Phone: 02-06-2013 15:03-0400 BMI (Body Mass Index) 25.67 kg/m2 Crystal Hernandez [facility] Internal Medicine Work Phone: 02-06-2013 15:03-0400 Body Temperature 97.2 [degF] Crystal Hernandez [facility] Internal Medicine Work Phone: Comment on above: Method: Temporal 02-06-2013 15:03-0400 Body weight 69.45 kg Crystal Hernandez [facility] Internal Medicine Work Phone: 02-06-2013 15:03-0400 BP Diastolic 68 mm[Hg] [facility] Work [facility]: Comment on above: Patient Position: Sitting; Cuff Location : Left Arm; Cuff Size: Standard 02-06-2013 15:03-0400 BP Systolic 122 mm[Hg] Crystal [facility] Internal Medicine Work Phone: Comment on above: Patient Position: Sitting; Cuff Location : Left Arm; Cuff Size: Standard 02-06-2013 15:03-0400 BSA (Body Surface Area) 1.76 m2 Crystal [facility] Work Phone: 02-06-2013 15:03-0400 Height 164.47 cm Crystal [facility] Work Phone: 02-06-2013 15:03-0400 Pulse (Heart Rate) 72 /min Crystal [facility] Internal [facility] Work Phone: Comment on above: Pattern: Regular 02-06-2013 15:03-0400 Pulse Oximetry 97 % Crystal [facility] Work Phone: Comment on above: Room air 02-06-2013 15:03-0400 Respiratory Rate 16 /min Crystal Hernandez [facility] Internal Medicine Work Phone: Comment on above: Pattern: Unlabored 02-06-2013 15:03-0400 Weight 69.45 kg Crystal Hernandez [facility] Internal Medicine Work Phone: 10-05-2012 12:58-0400 BMI (Body Mass Index) 26.66 kg/m2 Crystal Forresti [facility] Internal Medicine Work Phone: 10-05-2012 12:58-0400 Body Temperature 98 [degF] [facility] Work [facility]: Comment on above: Method: Oral 10-05-2012 12:58-0400 Body weight 72.12 kg Crystal [facility] Work Phone: 10-05-2012 12:58-0400 BP Diastolic 64 mm[Hg] [facility] Work Phone: Comment on above: Patient Position: Sitting; Cuff Location : Left Arm; Cuff Size: Standard 10-05-2012 12:58-0400 BP Systolic 116 mm[Hg] Crystal [facility] Work Phone: Comment on above: Patient Position: Sitting; Cuff Location : Left Arm; Cuff Size: Standard 10-05-2012 12:58-0400 BSA (Body Surface Area) 1.79 m2 Crystal Hernandez [facility] Internal Medicine Work Phone: 10-05-2012 12:58-0400 Height 164.47 cm [facility] Work Phone: 10-05-2012 12:58-0400 Pulse (Heart Rate) 56 /min [facility] Work Phone: Comment on above: Pattern: Regular 10-05-2012 12:58-0400 Respiratory Rate 16 /min Crystal [facility] Work Phone: Comment on above: Pattern: Unlabored 10-05-2012 12:58-0400 Weight 72.12 kg Crystal Hernandez [facility] Internal Medicine Work Phone: 05-22-2012 13:53-0500 BMI (Body Mass Index) 26.83 kg/m2 Crystal [facility] Work Phone: 05-22-2012 13:53-0500 Body Temperature 98.5 [degF] Crystal [facility] Work Phone: Comment on above: Method: Oral 05-22-2012 13:53-0500 Body weight 72.58 kg Crystal [facility] Work Phone: 05-22-2012 13:53-0500 BP Diastolic 78 mm[Hg] [facility] Work [facility]: Comment on above: Patient Position: Sitting; Cuff Location : Left Arm; Cuff Size: Standard 05-22-2012 13:53-0500 BP Systolic 124 mm[Hg] Crystal [facility] Work Phone: Comment on above: Patient Position: Sitting; Cuff Location : Left Arm; Cuff Size: Standard 05-22-2012 13:53-0500 BSA (Body Surface Area) 1.79 m2 Crystal [facility] Work Phone: 05-22-2012 13:53-0500 Height 164.47 cm [facility] Work Phone: 05-22-2012 13:53-0500 Pulse (Heart Rate) 74 /min Crystal [facility] Work Phone: Comment on above: Pattern: Regular 05-22-2012 13:53-0500 Respiratory Rate 15 /min Crystal [facility] Work Phone: Comment on above: Pattern: Unlabored 05-22-2012 13:53-0500 Weight 72.58 kg Crystal [facility] Work Phone: 04-10-2012 14:25-0400 BMI (Body Mass Index) 26.83 kg/m2 Crystal [facility] Work Phone: 04-10-2012 14:25-0400 Body Temperature 99.2 [degF] [facility] Work Phone: Comment on above: Method: Oral 04-10-2012 14:25-0400 Body weight 72.58 kg Crystal Hernandez [facility] Internal Medicine Work Phone: 04-10-2012 14:25-0400 BP Diastolic 78 mm[Hg] Crystal Hernandez [facility] Work Phone: Comment on above: Patient Position: Sitting; Cuff Location : Left Arm; Cuff Size: Standard 04-10-2012 14:25-0400 BP Systolic 122 mm[Hg] Crystal Hernandez [facility] Work Phone: Comment on above: Patient Position: Sitting; Cuff Location : Left Arm; Cuff Size: Standard 04-10-2012 14:25-0400 BSA (Body Surface Area) 1.79 m2 Crystal Hernandez [facility] Work Phone: 04-10-2012 14:25-0400 Height 164.47 cm Crystal [facility] Work Phone: 04-10-2012 14:25-0400 Pulse (Heart Rate) 74 /min Crystal Hernandez [facility] Work Phone: Comment on above: Pattern: Regular 04-10-2012 14:25-0400 Pulse Oximetry 94 % Crystal Hernandez [facility] Internal Medicine Work Phone: Comment on above: Room air 04-10-2012 14:25-0400 Respiratory Rate 17 /min Crystal Hernandez [facility] Internal Medicine Work Phone: Comment on above: Pattern: Unlabored 04-10-2012 14:25-0400 Weight 72.58 kg Crystal Hernandez [facility] Internal [facility] Work Phone: 01-26-2012 09:30-0400 BMI (Body Mass Index) 26.83 kg/m2 Crystal Hernandez [facility] Work Phone: 01-26-2012 09:30-0400 Body Temperature 98 [degF] Crystal [facility] Work Phone: Comment on above: Method: Oral 01-26-2012 09:30-0400 Body weight 72.58 kg Crystal Hernandez [facility] Internal [facility] Work Phone: 01-26-2012 09:30-0400 BP Diastolic 80 mm[Hg] Crystal [facility] Internal Medicine Work Phone: Comment on above: Patient Position: Sitting; Cuff Location : Left Arm; Cuff Size: Standard 01-26-2012 09:30-0400 BP Systolic 120 mm[Hg] [facility]: Comment on above: Patient Position: Sitting; Cuff Location : Left Arm; Cuff Size: Standard 01-26-2012 09:30-0400 BSA (Body Surface Area) 1.79 m2 [facility] Work Phone: 01-26-2012 09:30-0400 Height 164.47 [facility] Work Phone: 01-26-2012 09:30-0400 Pulse (Heart Rate) 68 /min [facility] Work [facility]: Comment on above: Pattern: Regular 01-26-2012 09:30-0400 Respiratory Rate 18 /min [facility] Work [facility]: Comment on above: Pattern: Unlabored 01-26-2012 09:30-0400 Weight 72.58 [facility] Work Phone: 08-26-2011 13:06-0500 BMI (Body Mass Index) 27 kg/m2 [facility] Work Phone: 08-26-2011 13:06-0500 Body Temperature 97.9 [degF] [facility] Work [facility]: Comment on above: Method: Oral 08-26-2011 13:06-0500 Body weight 73.03 [facility] Work Phone: 08-26-2011 13:06-0500 BP Diastolic 76 mm[Hg] [facility] Work Phone: Comment on above: Patient Position: Sitting; Cuff Location : Left Arm; Cuff Size: Standard 08-26-2011 13:06-0500 BP Systolic 126 mm[Hg] [facility] Work [facility]: Comment on above: Patient Position: Sitting; Cuff Location : Left Arm; Cuff Size: Standard 08-26-2011 13:06-0500 BSA (Body Surface Area) 1.8 m2 [facility] Work Phone: 08-26-2011 13:06-0500 Height 164.47 [facility] Work [facility]: 08-26-2011 13:06-0500 Pulse (Heart Rate) 60 /min [facility] Work [facility]: Comment on above: Pattern: Regular 08-26-2011 13:06-0500 Respiratory Rate 16 /min [facility]: Comment on above: Pattern: Unlabored 08-26-2011 13:06-0500 Weight 73.03 kg [facility] Work [facility]: 06-11-2011 10:15-0500 BMI (Body Mass Index) 27 kg/m2 [facility]: 06-11-2011 10:15-0500 Body Temperature 98.2 [degF] [facility]: Comment on above: Method: Oral 06-11-2011 10:15-0500 Body weight 73.03 kg [facility] Work [facility]: 06-11-2011 10:15-0500 BP Diastolic 68 mm[Hg] [facility]: Comment on above: Patient Position: Sitting; Cuff Location : Left Arm; Cuff Size: Standard 06-11-2011 10:15-0500 BP Systolic 116 mm[Hg] [facility]: Comment on above: Patient Position: Sitting; Cuff Location : Left Arm; Cuff Size: Standard 06-11-2011 10:15-0500 BSA (Body Surface Area) 1.8 m2 [facility] Work [facility]: 06-11-2011 10:15-0500 Height 164.47 [facility]: 06-11-2011 10:15-0500 Pulse (Heart Rate) 72 /min [facility] Work [facility]: Comment on above: Pattern: Regular 06-11-2011 10:15-0500 Respiratory Rate 14 /min [facility] Work Phone: Comment on above: Pattern: Unlabored 06-11-2011 10:15-0500 Weight 73.03 kg [facility] Work [facility]: 09-25-2010 13:38-0400 BMI (Body Mass Index) 26.66 kg/m2 [facility] Work [facility]: 09-25-2010 13:38-0400 Body Temperature 98.1 [degF] [facility]: Comment on above: Method: Oral 09-25-2010 13:38-0400 Body weight 72.12 kg [facility]: 09-25-2010 13:38-0400 BP Diastolic 68 mm[Hg] [facility]: Comment on above: Patient Position: Sitting; Cuff Location : Left Arm; Cuff Size: Standard 09-25-2010 13:38-0400 BP Systolic 102 mm[Hg] [facility] Work [facility]: Comment on above: Patient Position: Sitting; Cuff Location : Left Arm; Cuff Size: Standard 09-25-2010 13:38-0400 BSA (Body Surface Area) 1.79 m2 [facility] Work Phone: 09-25-2010 13:38-0400 Height 164.47 [facility] Work [facility]: 09-25-2010 13:38-0400 Pulse (Heart Rate) 72 /min [facility] Work Phone: Comment on above: Pattern: Regular 09-25-2010 13:38-0400 Respiratory Rate 12 /min [facility] Work Phone: Comment on above: Pattern: Unlabored 09-25-2010 13:38-0400 Weight 72.12 kg [facility] Work Phone: 06-18-2010 07:20-0500 BMI (Body Mass Index) 26.5 kg/m2 [facility] Work Phone: 06-18-2010 07:20-0500 Body Temperature 97.6 [degF] [facility] Work Phone: Comment on above: Method: Oral 06-18-2010 07:20-0500 Body weight 71.67 kg [facility] Work Phone: 06-18-2010 07:20-0500 BP Diastolic 74 mm[Hg] [facility] Work Phone: Comment on above: Patient Position: Sitting; Cuff Location : Left Arm; Cuff Size: Standard 06-18-2010 07:20-0500 BP Systolic 110 mm[Hg] [facility] Work Phone: Comment on above: Patient Position: Sitting; Cuff Location : Left Arm; Cuff Size: Standard 06-18-2010 07:20-0500 BSA (Body Surface Area) 1.78 m2 [facility] Work Phone: 06-18-2010 07:20-0500 Height 164.47 cm [facility] Work Phone: 06-18-2010 07:20-0500 Pulse (Heart Rate) 68 /min [facility] Work Phone: Comment on above: Pattern: Regular 06-18-2010 07:20-0500 Respiratory Rate 18 /min [facility] Work Phone: Comment on above: Pattern: Unlabored 06-18-2010 07:20-0500 Weight 71.67 kg Crystal [facility] Internal Medicine Work Phone: 03-17-2010 09:30-0400 Body Temperature 97.6 [degF] [facility]: Comment on above: Method: Oral 03-17-2010 09:30-0400 Body weight 72.12 kg [facility] Work Phone: 03-17-2010 09:30-0400 BP Diastolic 70 mm[Hg] [facility] Work Phone: Comment on above: Patient Position: Sitting; Cuff Location : Left Arm; Cuff Size: Standard 03-17-2010 09:30-0400 BP Systolic 104 mm[Hg] [facility] Work [facility]: Comment on above: Patient Position: Sitting; Cuff Location : Left Arm; Cuff Size: Standard 03-17-2010 09:30-0400 Pulse (Heart Rate) 68 /min [facility] Work [facility]: Comment on above: Pattern: Regular 03-17-2010 09:30-0400 Respiratory Rate 18 /min [facility] Work Phone: Comment on above: Pattern: Unlabored 03-17-2010 09:30-0400 Weight 72.12 kg [facility] Work Phone: 11-07-2009 09:46-0400 Body weight 72.12 kg Crystal Hernandez [facility] Internal Medicine Work Phone: 11-07-2009 09:46-0400 BP Diastolic 72 mm[Hg] [facility] Work [facility]: Comment on above: Patient Position: Sitting; Cuff Location : Left Arm; Cuff Size: Standard 11-07-2009 09:46-0400 BP Systolic 110 mm[Hg] [facility] Work [facility]: Comment on above: Patient Position: Sitting; Cuff Location : Left Arm; Cuff Size: Standard 11-07-2009 09:46-0400 Pulse (Heart Rate) 70 /min [facility] Work [facility]: Comment on above: Pattern: Regular 11-07-2009 09:46-0400 Respiratory Rate 18 /min Crystal [facility] Internal Medicine Work Phone: Comment on above: Pattern: Unlabored 11-07-2009 09:46-0400 [facility] 72.12 [facility] Work [facility]: 05-15-2009 09:50-0500 BMI (Body Mass Index) 26.33 kg/m2 [facility] Work [facility]: 05-15-2009 09:50-0500 Body Temperature 98.4 [degF] [facility] Internal Medicine Work Phone: Comment on above: Method: Oral 05-15-2009 09:50-0500 Body weight 71.22 kg Crystal [facility] Internal Medicine Work Phone: 05-15-2009 09:50-0500 BP Diastolic 64 mm[Hg] [facility] Internal Medicine Work Phone: Comment on above: Patient Position: Supine; Cuff Location: Left Arm; Cuff Size: Standard 05-15-2009 09:50-0500 BP Systolic 108 mm[Hg] [facility] Work [facility]: Comment on above: Patient Position: Supine; Cuff Location: Left Arm; Cuff Size: Standard 05-15-2009 09:50-0500 BSA (Body Surface Area) 1.78 m2 [facility] Work Phone: 05-15-2009 09:50-0500 Head Circumference 0 cm [facility] Internal Medicine Work Phone: 05-15-2009 09:50-0500 Height 164.47 cm [facility] Internal Medicine Work Phone: 05-15-2009 09:50-0500 Pulse (Heart Rate) 72 /min [facility] Work [facility]: Comment on above: Pattern: Regular 05-15-2009 09:50-0500 Respiratory Rate 16 /min [facility] Work Phone: Comment on above: Pattern: Unlabored 05-15-2009 09:50-0500 Weight 71.22 kg [facility] Work Phone: 04-15-2009 10:32-0400 BMI (Body Mass Index) 26.33 kg/m2 [facility] Work Phone: 04-15-2009 10:32-0400 Body Temperature 98.4 [degF] [facility] Work [facility]: Comment on above: Method: Oral 04-15-2009 10:32-0400 Body weight 71.22 kg [facility] Work Phone: 04-15-2009 10:32-0400 BP Diastolic 72 mm[Hg] [facility] Work [facility]: Comment on above: Patient Position: Sitting; Cuff Location : Left Arm; Cuff Size: Large 04-15-2009 10:32-0400 BP Systolic 98 mm[Hg] [facility] Work Phone: Comment on above: Patient Position: Sitting; Cuff Location : Left Arm; Cuff Size: Large 04-15-2009 10:32-0400 BSA (Body Surface Area) 1.78 m2 [facility] Work Phone: 04-15-2009 10:32-0400 Head Circumference 0 cm [facility] Work [facility]: 04-15-2009 10:32-0400 Height 164.47 [facility] Work Phone: 04-15-2009 10:32-0400 Pulse (Heart Rate) 64 /min [facility] Work [facility]: Comment on above: Pattern: Regular 04-15-2009 10:32-0400 Respiratory Rate 20 /min [facility] Work Phone: Comment on above: Pattern: Unlabored 04-15-2009 10:32-0400 Weight 71.22 kg [facility] Work Phone: 10-09-2008 10:52-0400 Body Temperature 98.4 [degF] [facility] Work Phone: Comment on above: Method: Oral 10-09-2008 10:52-0400 Body weight 72.12 kg [facility] Work Phone: 10-09-2008 10:52-0400 BP Diastolic 68 mm[Hg] [facility] Work Phone: Comment on above: Patient Position: Sitting; Cuff Location : Left Arm; Cuff Size: Standard 10-09-2008 10:52-0400 BP Systolic 106 mm[Hg] [facility] Work Phone: Comment on above: Patient Position: Sitting; Cuff Location : Left Arm; Cuff Size: Standard 10-09-2008 10:52-0400 Head Circumference 0 cm [facility] Work Phone: 10-09-2008 10:52-0400 Height 0 cm Crystal [facility] Internal Medicine Work Phone: 10-09-2008 10:52-0400 Pulse (Heart Rate) 64 /min [facility] Work Phone: Comment on above: Pattern: Regular 10-09-2008 10:52-0400 Pulse Oximetry 98 % [facility] Work Phone: Comment on above: Room air 10-09-2008 10:52-0400 Respiratory Rate 16 /min [facility] Work Phone: Comment on above: Pattern: Unlabored 10-09-2008 10:52-0400 Weight 72.12 kg Crystal Hernandez [facility] Internal Medicine Work Phone: 09-19-2008 15:15-0400 Body Temperature 98 [degF] [facility] Work Phone: Comment on above: Method: Oral 09-19-2008 15:15-0400 Body weight 70.31 kg [facility] Work Phone: 09-19-2008 15:15-0400 BP Diastolic 64 mm[Hg] [facility] Work Phone: Comment on above: Patient Position: Sitting; Cuff Location : Left Arm; Cuff Size: Standard 09-19-2008 15:15-0400 BP Systolic 108 mm[Hg] [facility] Work Phone: Comment on above: Patient Position: Sitting; Cuff Location : Left Arm; Cuff Size: Standard 09-19-2008 15:15-0400 Head Circumference 0 cm [facility] Work Phone: 09-19-2008 15:15-0400 Height 0 cm [facility] Work Phone: 09-19-2008 15:15-0400 Pulse (Heart Rate) 71 /min [facility] Work Phone: Comment on above: Pattern: Regular 09-19-2008 15:15-0400 Respiratory Rate 16 /min [facility] Work Phone: Comment on above: Pattern: Unlabored 09-19-2008 15:15-0400 Weight 70.31 kg [facility] Work Phone: 09-12-2008 14:49-0400 Body Temperature 98.2 [degF] [facility] Work Phone: Comment on above: Method: Oral 09-12-2008 14:49-0400 Body weight 70.31 kg [facility] Work Phone: 09-12-2008 14:49-0400 BP Diastolic 70 mm[Hg] [facility] Work Phone: Comment on above: Patient Position: Sitting; Cuff Location : Left Arm; Cuff Size: Large 09-12-2008 14:49-0400 BP Systolic 112 mm[Hg] [facility]: Comment on above: Patient Position: Sitting; Cuff Location : Left Arm; Cuff Size: Large 09-12-2008 14:49-0400 Head Circumference 0 cm [facility] Work [facility]: 09-12-2008 14:49-0400 Height 0 cm [facility] Work [facility]: 09-12-2008 14:49-0400 Pulse (Heart Rate) 69 /min [facility] Work [facility]: Comment on above: Pattern: Regular 09-12-2008 14:49-0400 Pulse Oximetry 98 % [facility] Work [facility]: Comment on above: Room air 09-12-2008 14:49-0400 Respiratory Rate 18 /min [facility] Work [facility]: Comment on above: Pattern: Unlabored 09-12-2008 14:49-0400 Weight 70.31 [facility] Work [facility]: 07-09-2008 11:15-0500 Body Temperature 98.7 [degF] [facility] Work [facility]: Comment on above: Method: Oral 07-09-2008 11:15-0500 Body weight 70.31 [facility] Work [facility]: 07-09-2008 11:15-0500 BP Diastolic 60 mm[Hg] [facility] Medicine Work Phone: Comment on above: Patient Position: Sitting; Cuff Location : Left Arm; Cuff Size: Standard 07-09-2008 11:15-0500 BP Systolic 100 mm[Hg] [facility] Work Phone: Comment on above: Patient Position: Sitting; Cuff Location : Left Arm; Cuff Size: Standard 07-09-2008 11:15-0500 Head Circumference 0 cm [facility] Work [facility]: 07-09-2008 11:15-0500 Height 0 cm [facility] Work Phone: 07-09-2008 11:15-0500 Pulse (Heart Rate) 76 /min [facility] Work Phone: Comment on above: Pattern: Regular 07-09-2008 11:15-0500 Respiratory Rate 16 /min [facility] Work Phone: Comment on above: Pattern: Unlabored 07-09-2008 11:15-0500 Weight 70.31 kg [facility] Work Phone: 04-18-2008 12:23-0400 Body Temperature 97.6 [degF] [facility] Work Phone: Comment on above: Method: Oral 04-18-2008 12:23-0400 Body weight 68.96 kg [facility] Work Phone: 04-18-2008 12:23-0400 BP Diastolic 78 mm[Hg] [facility] Work Phone: Comment on above: Patient Position: Sitting; Cuff Location : Left Arm; Cuff Size: Standard 04-18-2008 12:23-0400 BP Systolic 120 mm[Hg] [facility] Work Phone: Comment on above: Patient Position: Sitting; Cuff Location : Left Arm; Cuff Size: Standard 04-18-2008 12:23-0400 Head Circumference 0 cm [facility] Work Phone: 04-18-2008 12:23-0400 Height 0 cm [facility] Work Phone: 04-18-2008 12:23-0400 Pulse (Heart Rate) 70 /min [facility] Work Phone: Comment on above: Pattern: Regular 04-18-2008 12:23-0400 Respiratory Rate 16 /min Crystal [facility] Medicine Work Phone: Comment on above: Pattern: Unlabored 04-18-2008 12:23-0400 Weight 68.96 kg Crystal Hernandez [facility] Internal Medicine Work Phone: 06-23-2007 10:15-0500 BMI (Body Mass Index) 26.99 kg/m2 Crystal [facility] Work Phone: 06-23-2007 10:15-0500 Body Temperature 98.2 [degF] Crystal [facility] Work Phone: Comment on above: Method: Oral 06-23-2007 10:15-0500 Body weight 71.33 kg Crystal Hernandez [facility] Medicine Work Phone: 06-23-2007 10:15-0500 BP Diastolic 62 mm[Hg] [facility] Work Phone: Comment on above: Patient Position: Sitting; Cuff Location : Right Arm; Cuff Size: Standard 06-23-2007 10:15-0500 BP Systolic 116 mm[Hg] [facility] Work Phone: Comment on above: Patient Position: Sitting; Cuff Location : Right Arm; Cuff Size: Standard 06-23-2007 10:15-0500 BSA (Body Surface Area) 1.77 m2 [facility] Work Phone: 06-23-2007 10:15-0500 Head Circumference 0 cm [facility] Work Phone: 06-23-2007 10:15-0500 Height 162.56 cm [facility] Work [facility]: 06-23-2007 10:15-0500 Pulse (Heart Rate) 80 /min [facility] Work Phone: Comment on above: Pattern: Regular 06-23-2007 10:15-0500 Respiratory Rate 20 /min [facility] Work Phone: Comment on above: Pattern: Unlabored 06-23-2007 10:15-0500 Weight 71.33 kg [facility] Work Phone: 03-10-2007 13:06-0400 Body Temperature 98.6 [degF] [facility] Work Phone: Comment on above: Method: Oral 03-10-2007 13:06-0400 Body weight 0 kg [facility] Work Phone: 03-10-2007 13:06-0400 BP Diastolic 78 mm[Hg] [facility] Work Phone: Comment on above: Patient Position: Sitting; Cuff Location : Left Arm; Cuff Size: Standard 03-10-2007 13:06-0400 BP Systolic 122 mm[Hg] [facility] Work Phone: Comment on above: Patient Position: Sitting; Cuff Location : Left Arm; Cuff Size: Standard 03-10-2007 13:06-0400 Head Circumference 0 cm [facility] Work Phone: 03-10-2007 13:06-0400 Height 0 cm [facility] Work Phone: 03-10-2007 13:06-0400 Pulse (Heart Rate) 64 /min [facility] Work Phone: Comment on above: Pattern: Regular 03-10-2007 13:06-0400 Respiratory Rate 20 /min [facility] Work Phone: Comment on above: Pattern: Unlabored 03-10-2007 13:06-0400 Weight 0 kg [facility] Work Phone: 03-01-2007 09:17-0400 BMI (Body Mass Index) 26.99 kg/m2 [facility] Work Phone: 03-01-2007 09:17-0400 Body Temperature 97.8 [degF] [facility] Work Phone: Comment on above: Method: Oral 03-01-2007 09:170400 Body weight 71.33 kg [facility] Work Phone: 03-01-2007 09:17-0400 BP Diastolic 78 mm[Hg] [facility] Work Phone: Comment on above: Patient Position: Sitting; Cuff Location : Left Arm; Cuff Size: Standard 03-01-2007 09:17-0400 BP Systolic 118 mm[Hg] [facility] Work Phone: Comment on above: Patient Position: Sitting; Cuff Location : Left Arm; Cuff Size: Standard 03-01-2007 09:17-0400 BSA (Body Surface Area) 1.77 m2 [facility] Work Phone: 03-01-2007 09:17-0400 Head Circumference 0 cm [facility] Work Phone: 03-01-2007 09:17-0400 Height 162.56 cm [facility] Work Phone: 03-01-2007 09:17-0400 Pulse (Heart Rate) 80 /min [facility] Work Phone: Comment on above: Pattern: Regular 03-01-2007 09:17-0400 Respiratory Rate 20 /min [facility] Work Phone: Comment on above: Pattern: Unlabored 03-01-2007 09:17-0400 Weight 71.33 kg [facility] Work Phone: 12-19-2006 14:12-0400 Body Temperature 97.6 [degF] [facility] Work Phone: Comment on above: Method: Oral 12-19-2006 14:120400 Body weight 70.31 kg [facility] Work Phone: 12-19-2006 14:12-0400 BP Diastolic 78 mm[Hg] [facility] Work Phone: Comment on above: Patient Position: Sitting; Cuff Location : Left Arm; Cuff Size: Standard 12-19-2006 14:12-0400 BP Systolic 118 mm[Hg] [facility]: Comment on above: Patient Position: Sitting; Cuff Location : Left Arm; Cuff Size: Standard 12-19-2006 14:120400 Head Circumference 0 cm [facility] Work [facility]: 12-19-2006 14:120400 Height 0 [facility] Work [facility]: 12-19-2006 14:12-0400 Pulse (Heart Rate) 68 /min [facility] Work [facility]: Comment on above: Pattern: Regular 12-19-2006 14:12-0400 Respiratory Rate 20 /min [facility] Work [facility]: Comment on above: Pattern: Unlabored 12-19-2006 14:12-0400 Weight 70.31 [facility] Work [facility]: 09-08-2006 12:09-0500 Body Temperature 98.4 [degF] [facility] Work [facility]: Comment on above: Method: Oral 09-08-2006 12:09-0500 Body weight 68.95 [facility] Work Phone: 09-08-2006 12:09-0500 BP Diastolic 78 mm[Hg] [facility] Work [facility]: Comment on above: Patient Position: Sitting; Cuff Location : Left Arm; Cuff Size: Standard 09-08-2006 12:09-0500 BP Systolic 104 mm[Hg] [facility] Work [facility]: Comment on above: Patient Position: Sitting; Cuff Location : Left Arm; Cuff Size: Standard 09-08-2006 12:09-0500 Head Circumference 0 cm [facility] Work [facility]: 09-08-2006 12:09-0500 Height 0 cm [facility] Work Phone: 09-08-2006 12:09-0500 Pulse (Heart Rate) 70 /min [facility] Work Phone: Comment on above: Pattern: Regular 09-08-2006 12:09-0500 Respiratory Rate 20 /min [facility] Work Phone: Comment on above: Pattern: Unlabored 09-08-2006 12:09-0500 Weight 68.95 kg [facility] Work Phone: 08-22-2006 10:09-0500 Body Temperature 97.6 [degF] [facility] Work Phone: Comment on above: Method: Undefined 08-22-2006 10:09-0500 Body weight 0 kg [facility] Work Phone: 08-22-2006 10:09-0500 BP Diastolic 48 mm[Hg] [facility] Work Phone: Comment on above: Patient Position: Sitting; Cuff Location : Left Arm; Cuff Size: Standard 08-22-2006 10:09-0500 BP Systolic 104 mm[Hg] [facility] Work Phone: Comment on above: Patient Position: Sitting; Cuff Location : Left Arm; Cuff Size: Standard 08-22-2006 10:09-0500 Head Circumference 0 cm [facility] Work Phone: 08-22-2006 10:09-0500 Height 0 cm [facility] Work Phone: 08-22-2006 10:09-0500 Respiratory Rate 20 /min [facility] Work Phone: Comment on above: Pattern: Undefined 08-22-2006 10:09-0500 Weight 0 kg Crystal [facility] Work Phone: 08-10-2006 08:11-0500 Body Temperature 98.2 [degF] Crystal Hernandez [facility] Internal Medicine Work Phone: Comment on above: Method: Undefined 08-10-2006 08:11-0500 Body weight 0 kg Crystal Hernandez [facility] Internal Medicine Work Phone: 08-10-2006 08:11-0500 BP Diastolic 80 mm[Hg] Crystal Hernandez [facility] Internal Medicine Work Phone: Comment on above: Patient Position: Sitting; Cuff Location : Left Arm; Cuff Size: Standard 08-10-2006 08:11-0500 BP Systolic 106 mm[Hg] Crystal Forrest [facility] Work Phone: Comment on above: Patient Position: Sitting; Cuff Location : Left Arm; Cuff Size: Standard 08-10-2006 08:11-0500 Head Circumference 0 cm [facility] Work Phone: 08-10-2006 08:11-0500 Height 0 cm [facility] Work Phone: 08-10-2006 08:11-0500 Pulse (Heart Rate) 68 /min Crystal Forrest [facility] Work Phone: Comment on above: Pattern: Regular 08-10-2006 08:11-0500 Weight 0 kg Crystal Hernandez [facility] Internal Medicine Work Phone: 03-21-2006 15:17-0400 BMI (Body Mass Index) 26.19 kg/m2 Crystal Forrest [facility] Work Phone: 03-21-2006 15:17-0400 Body weight 69.2 kg Crystal Hernandez [facility] Internal Medicine Work Phone: 03-21-2006 15:17-0400 BP Diastolic 58 mm[Hg] [facility] Work Phone: Comment on above: Patient Position: Standing; Cuff Locatio n: Right Arm; Cuff Size: Standard 03-21-2006 15:17-0400 BP Systolic 108 mm[Hg] Crystal Lon [facility] Work Phone: Comment on above: Patient Position: Standing; Cuff Locatio n: Right Arm; Cuff Size: Standard 03-21-2006 15:17-0400 BSA (Body Surface Area) 1.74 m2 [facility] Internal Medicine Work Phone: 03-21-2006 15:17-0400 Head Circumference 0 cm [facility] Internal Medicine Work Phone: 03-21-2006 15:17-0400 Height 162.56 cm [facility] Internal Medicine Work Phone: 03-21-2006 15:17-0400 Pulse (Heart Rate) 72 /min [facility] Internal Medicine Work Phone: Comment on above: Pattern: Regular 03-21-2006 15:17-0400 Respiratory Rate 16 /[facility] Work Phone: Comment on above: Pattern: Unlabored 03-21-2006 15:17-0400 Weight 69.2 kg [facility] Internal Medicine Work Phone: Encounters Encounter Date Encounter Type Care Provider Facility Start: 05-10-2025 ambulatory [facility] Facility:[facility] Start: 04-29-2025 End: 04-29-2025 ambulatory [facility] Facility:[id number] Start: 04-25-2025 End: 04-25-2025 ambulatory [facility] [place] Start: 04-17-2025 ambulatory [facility] Facility:[facility] Start: 04-09-2025 End: 04-09-2025 ambulatory [facility] Facility:[id number] Start: 03-28-2025 End: 03-28-2025 ambulatory [facility] Facility:[facility] Start: 03-27-2025 ambulatory [facility] Facility:[facility] Start: 03-20-2025 End: 03-20-2025 Telephone encounter Zulma Mahoney [facility] Work Phone: Psychology Comment on above: consult Start: 03-20-2025 End: 03-20-2025 Office outpatient visit 25 minutes Emma Schultz MD Work Phone: Internal Medicine [place] Comment on above: Acute stress reactio n (Primary Dx); Paroxysmal A-fib (HCC); Need for vaccination; Sleep apnea, unspecified type; Calculus of ureter Start: 03-20-2025 End: 03-20-2025 [facility] Facility:[facility] Start: 03-07-2025 End: 03-11-2025 Telephone encounter Emma Schultz MD Work Phone: Internal Medicine [place] Comment on above: Order for CPAP Start: 02-19-2025 End: 02-25-2025 Telephone encounter Yamilka Wilde 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 Work Phone: [facility] Pulmonary/Sleep/Critical Care Comment on above: Problem with CPAP abner galeano orders (re: CPAP machine) Start: 02-18-2025 End: 02-18-2025 Telephone encounter Jessica Concepcion APRN.CNP Work Phone: [facility] [place] Comment on above: Orders (CPAP) Start: 02-18-2025 End: 02-18-2025 [facility] Facility:[facility] Start: 02-15-2025 End: 02-15-2025 [facility] Facility:[facility] Start: 02-15-2025 End: 02-15-2025 Office outpatient visit 25 minutes Jessica Concepcion APRN.AUTO SERVICE WRITER Work Phone: Internal Medicine [place] Comment on above: New onset a-fib (HCC ) (Primary Dx); Irregular heart rhythm; Obstructive sleep apnea (adult) (pediatric); Hypothyroidism, unspecified type; Palpitations Start: 02-15-2025 End: 02-15-2025 [facility] Facility:[facility] Start: 01-30-2025 End: 01-30-2025 Telephone encounter Emma Schultz MD Work Phone: Internal Medicine [place] Comment on above: Medication Problem Start: 01-28-2025 End: 01-28-2025 [facility] Facility:[facility] Start: 01-28-2025 End: 01-28-2025 Office outpatient visit 25 minutes Emma Schultz MD Work Phone: Internal Medicine [place] Comment on above: Tick bite of lower b ack, initial encounter (Primary Dx); Obstructive sleep apnea (adult) (pediatric); Essential (primary) hypertension; Age-related osteoporosis without current pathological fracture Start: 01-28-2025 End: 01-28-2025 ambulatory EMMA SCHULTZ Facility:[facility] Start: 01-16-2025 End: 01-16-2025 Telephone encounter Yamilka Wilde 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 Work Phone: [facility] Pulmonary/Sleep/Critical Care Comment on above: Consult (ENT) Orders (CPAP) Start: 01-16-2025 End: 01-16-2025 Patient encounter procedure Yamilka Wilde 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 Work Phone: [facility] Pulmonary/Sleep/Critical Care Comment on above: Lyme disease (Primar y Dx); SAIMA (obstructive sleep apnea); Snoring; Gastroesophageal reflux disease without esophagitis; RLS (restless legs syndrome) Start: 01-16-2025 End: 01-16-2025 ambulatory YAMILKA WILDE Facility:[id number] Start: 01-11-2025 End: 01-17-2025 Telephone encounter Emma Schultz MD Work Phone: Internal Medicine [place] Comment on above: Patient Update Start: 01-03-2025 End: 01-18-2025 Telephone encounter Alize Yuan Work Phone: Podiatry Comment on above: [facility] Start: 01-02-2025 ambulatory Alize Yuan Facili ty:[facility] Start: 01-02-2025 Non-patient / Non-visit Dr. Manuel reeves MD -[facility]- Start: 01-02-2025 End: 01-02-[address] Emma Schultz MD Work Phone: -Pulmonary Services/Neurology Start: 01-02-2025 End: 01-02-[address] Alize Yuan DPM -Pulmonary Services/Neurology Work Phone: Start: 01-02-2025 End: 01-02-2025 ambulatory Alize Yuan Facility:[facility] Start: 12-25-2024 End: 12-25-2024 ambulatory Emma Schultz MD Work Phone: Internal Medicine [place] Comment on above: Rash on back and but tocks Start: 12-25-2024 End: 12-26-2024 Telephone encounter Emma Schultz MD Work Phone: Family Medicine [place] Comment on above: Referral / [facility] Start: 12-24-2024 End: 12-24-2024 Office outpatient visit 25 minutes Emma Schultz MD Work Phone: Internal Medicine [place] Comment on above: Tick bite of lower b ack, initial encounter (Primary Dx); Rash; Sleep apnea, unspecified type Start: 12-24-2024 End: 12-24-2024 ambulatory [facility] Facility:[facility] Start: 12-21-2024 End: 12-21-2024 Telephone encounter Emma Schultz MD Work Phone: Home Respiratory Therapy Comment on above: PAP Therapy Follow U p Start: 12-20-2024 End: 12-20-2024 Telephone encounter Kristy Mcclure DO Work Phone: [facility] Pulmonary/Sleep/Critical Care Comment on above: Results Start: 12-19-2024 End: 12-19-2024 Follow-up encounter Emma Schultz MD Work Phone: Internal Medicine [place] Start: 12-11-2024 End: 12-11-2024 ambulatory [facility] Facility:[id number] Start: 12-11-2024 End: 12-12-2024 Follow-up encounter Emma Schultz MD Work Phone: Internal Medicine [place] Start: 12-11-2024 End: 12-11-2024 Subsequent hospital visit by physician Kassy [facility] [place] Work Phone: Radiology Comment on above: Numbness and tinglin g of foot [R20.0, R20.2] Start: 12-11-2024 End: 12-11-2024 Patient encounter procedure Alize Yuan Work Phone: Podiatry Comment on above: Right foot pain (Smita jae Dx); Numbness and tingling of foot Sleep apnea, unspeci fied type Start: 12-11-2024 End: 12-11-2024 ambulatory [facility] Facility:[facility] Start: 12-07-2024 ambulatory [facility] Facility:[facility] Start: 12-07-2024 End: 12-07-2024 Subsequent hospital visit by physician Bone Density [facility] Work Phone: Radiology Comment on above: Osteoporosis, unspec ified osteoporosis type, unspecified pathological fracture presence [M81.0] Start: 12-06-2024 End: 12-06-2024 Telephone encounter Kristy Mcclure DO Work Phone: [facility] Pulmonary/Sleep/Critical Care Comment on above: Results Start: 12-03-2024 End: 12-03-2024 [facility] Facility:[id number] Start: 12-03-2024 End: 12-03-2024 Patient encounter procedure Psg Mslt Pap Naps Neur [facility] Sleep Lab Comment on above: Sleep apnea, unspeci fied type Start: 11-28-2024 End: 01-28-2025 Follow-up encounter Emma Schultz MD Work Phone: Internal Medicine [place] Start: 11-27-2024 End: 11-27-2024 [facility] Facility:[facility] Start: 11-27-2024 End: 11-27-2024 Office outpatient visit 25 minutes Emma Schultz MD Work Phone: Internal Medicine [place] Comment on above: Numbness and tinglin g of foot (Primary Dx); Vitamin B12 deficiency; Stage 3 chronic kidney disease, unspecified whether stage 3a or 3b CKD (HCC); Hypothyroidism, unspecified type Start: 11-27-2024 End: 11-27-2024 ambulatory [facility] Facility:[facility] Start: 11-22-2024 End: 11-22-2024 ambulatory [facility] Facility:[facility] Start: 11-21-2024 End: 11-28-2024 Telephone encounter Emma Schultz MD Work Phone: Internal Medicine [place] Comment on above: Patient Update Start: 11-19-2024 End: 11-19-2024 ambulatory Emma Schultz MD Work Phone: Internal Medicine [place] Comment on above: Nerve problem Start: 11-15-2024 ambulatory EMMARA GLENIS SCHULTZ [facility] Start: 10-29-2024 End: 10-31-2024 Telephone encounter Emma Schultz MD Work Phone: Internal Medicine [place] Comment on above: Orders (Fax bone den sity to [facility]) Start: 10-26-2024 End: 10-26-2024 ambulatory EMMA SCHULTZ Facility:[facility] Start: 10-26-2024 Patient encounter procedure EMMA SCHULTZ [facility] Start: 10-17-2024 End: 12-17-2024 Follow-up encounter Emma Schultz MD Work Phone: Internal Medicine [place] Start: 10-15-2024 End: 10-15-2024 ambulatory EMMA SCHULTZ Facility:[facility] Start: 10-12-2024 End: 10-12-2024 ambulatory Emma Schultz MD Work Phone: Internal Medicine [place] Comment on above: Blood Work Start: 09-11-2024 End: 09-11-[address] Emma Schultz MD Work Phone: [facility] Work Phone: Start: 09-11-2024 End: 09-11-2024 Patient encounter procedure Concha WEIR -Laboratory, Specimen Work Phone: Start: 09-11-2024 End: 09-11-2024 ambulatory Emma Schultz Facility:[facility] Start: 09-04-2024 End: 09-04-2024 Patient encounter procedure Concha WEIR [facility] Work Phone: Start: 09-04-2024 End: 09-04-2024 ambulatory Emma Schultz Facility:[facility] Start: 09-03-2024 End: 09-03-2024 ambulatory [facility] Facility:[facility] Start: 09-03-2024 End: 09-03-2024 Subsequent hospital visit by physician Screen Mammo [facility] Mammogram Comment on above: Encounter for screen ing mammogram for breast cancer [Z12.31] Start: 08-27-2024 End: 08-27-2024 Refill [facility] Comment on above: Refill Request Start: 08-06-2024 End: 08-16-2024 Refill Jessica Older 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 Work Phone: Internal Medicine [place] Comment on above: Med Change Request Start: 07-27-2024 End: 07-30-2024 Refill Jessica Older 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 Work Phone: Internal Medicine [place] Comment on above: Refill Request Start: 06-06-2024 End: 06-06-2024 Patient encounter procedure Concha WEIR [facility] Work Phone: Start: 06-06-2024 End: 06-06-2024 ambulatory [facility] [place] Start: 05-12-2024 End: 05-12-2024 Emergency department patient visit [facility] Facility:[facility] Start: 05-07-2024 End: 05-07-2024 Telephone encounter Emma Schultz MD Work Phone: Internal Medicine [place] Comment on above: Future Appointment Start: 05-07-2024 End: 05-07-2024 ambulatory [facility] Facility:[facility] Start: 05-07-2024 End: 05-07-2024 Office outpatient visit 25 minutes Emma Schultz MD Work Phone: Internal Medicine [place] Comment on above: Tendinitis (Primary Dx) Start: 04-26-2024 End: 04-26-2024 Office outpatient visit 25 minutes Emma Schultz MD Work Phone: Internal Medicine [place] Comment on above: Mixed hyperlipidemia (Primary Dx); Encounter for screening mammogram for breast cancer; Irregular heart rate; Hypothyroidism, unspecified type; Stewart's esophagus with dysplasia Start: 04-26-2024 End: 04-26-2024 ambulatory EMMA SCHULTZ Facility:[facility] Start: 03-21-2024 End: 03-21-2024 ambulatory Emma Schultz MD Work Phone: Internal Medicine [place] Comment on above: Blood work Start: 03-15-2024 End: 03-15-2024 ambulatory Kostas Nitish PT Work Phone: [facility] Comment on above: Acute pain of right shoulder (Primary Dx); RUE weakness Start: 03-06-2024 End: 03-06-2024 ambulatory Kostas Nitish PT Work Phone: [facility] Comment on above: Acute pain of right shoulder (Primary Dx); RUE weakness Start: 02-20-2024 End: 02-20-2024 ambulatory Kostas Nitish PT Work Phone: [facility] Comment on above: Acute pain of right shoulder (Primary Dx); RUE weakness Start: 02-06-2024 End: 02-06-2024 ambulatory Kostas Nitish PT Work Phone: [facility] Comment on above: Acute pain of right shoulder (Primary Dx); RUE weakness Start: 01-23-2024 End: 01-23-2024 ambulatory Kostas Nitish PT Work Phone: [facility] Comment on above: Acute pain of right shoulder (Primary Dx); RUE weakness Start: 01-13-2024 End: 01-13-2024 ambulatory Kostas Nitish PT Work Phone: [facility] Comment on above: Acute pain of right shoulder (Primary Dx); RUE weakness Start: 01-10-2024 End: 01-10-2024 ambulatory Kostas Nitish PT Work Phone: [facility] Comment on above: Acute pain of right shoulder (Primary Dx); RUE weakness Start: 01-03-2024 End: 01-03-2024 ambulatory Kostas Nitish PT Work Phone: [facility] Comment on above: Acute pain of right shoulder (Primary Dx); RUE weakness Refill Request Start: 12-20-2023 End: 12-20-2023 ambulatory Kostas Nitish PT Work Phone: [facility] Comment on above: Acute pain of right shoulder (Primary Dx); RUE weakness Start: 12-14-2023 End: 12-14-2023 ambulatory Kostas Nitish PT Work Phone: [facility] Comment on above: Acute pain of right shoulder (Primary Dx); RUE weakness Start: 12-06-2023 End: 12-06-2023 ambulatory Kostas Nitish PT Work Phone: [facility] Comment on above: Acute pain of right shoulder (Primary Dx); RUE weakness Start: 12-02-2023 End: 12-02-2023 ambulatory Kostas Nitish PT Work Phone: [facility] Comment on above: Acute pain of right shoulder (Primary Dx); RUE weakness Start: 11-22-2023 End: 11-22-2023 ambulatory Kostas Nitish PT Work Phone: [facility] Comment on above: Acute pain of right shoulder (Primary Dx); RUE weakness Start: 11-14-2023 End: 11-14-2023 ambulatory Kostas Nitish PT Work Phone: [facility] Comment on above: Acute pain of right shoulder (Primary Dx); RUE weakness Start: 10-28-2023 Telephone encounter Jessica Concepcion APRN.CNP Work Phone: Internal Medicine [place] Comment on above: Results Start: 10-24-2023 End: 10-24-2023 Subsequent hospital visit by physician [facility] Work Phone: Radiology Comment on above: Acute pain of right shoulder [M25.511] Start: 10-24-2023 End: 10-24-2023 Patient encounter procedure Jessica Concepcion APRN.CNP Work Phone: Internal Medicine [place] Comment on above: Acute pain of right shoulder (Primary Dx); RUE weakness; Muscle aches; Other fatigue; Hypothyroidism, unspecified type; RLS (restless legs syndrome) Start: 10-06-2023 End: 10-06-2023 ambulatory [facility] Work Phone: Start: 10-06-2023 End: 10-06-2023 Patient encounter procedure [facility]-Radiology, [facility] Work Phone: Start: 09-07-2023 Telephone encounter Emma alcocer MD Work Phone: Family [facility] Comment on above: Dry Cough Start: 09-03-2023 Documentation procedure Mammog herlinda Coordinator [facility] Start: 09-03-2023 Letter encounter [facility] Start: 09-01-2023 End: 09-01-2023 Subsequent hospital visit by physician Screen Mammo [facility] Mamm[facility] Comment on above: Encounter for screen ing mammogram for breast cancer [Z12.31] Start: 08-31-2023 ambulatory Emma Mattson Work Phone: Internal Medicine [place] Start: 08-13-2023 End: 08-13-2023 ambulatory EMMA SCHULTZ Facility:[facility] Start: 08-13-2023 End: 08-13-2023 ambulatory Neil Oropeza MD Work Phone: [facility] Comment on above: COVID-19 virus infec tion (Primary Dx) Start: 08-13-2023 End: 08-13-2023 Telemedicine consultation with patient Neil Oropeza MD Work Phone: [facility] Start: 08-11-2023 Refill Jessica Older PRINTMAKER .AUTO SERVICE WRITER Work Phone: Internal Medicine [place] Comment on above: Refill Request Start: 07-25-2023 End: 07-25-2023 ambulatory JESSICA OLDER Facility:[facility] Start: 06-10-2023 End: 06-10-2023 ambulatory JESSICA OLDER Facility:[facility] Start: 06-10-2023 End: 06-10-2023 Subsequent hospital visit by physician Xr [facility] [place] Work Phone: Radiology Comment on above: Chest pain, unspecif ied type [R07.9] Start: 06-10-2023 End: 06-10-2023 Patient encounter procedure Jessica Concepcion 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 Work Phone: Internal Medicine [place] Comment on above: Chest pain, unspecif ied type (Primary Dx); Chronic cough; Sinus drainage; Dysphagia, unspecified type; Palpitations; Mixed hyperlipidemia; Osteoarthritis, unspecified osteoarthritis type, unspecified site Start: 05-19-2023 End: 05-20-2023 ambulatory JESSICA [facility] Facility:[facility] Start: 05-07-2023 ambulatory Jessica Concepcion PRINTMAKER .AUTO SERVICE WRITER Work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 See Note; NOTES: [facility] Imaging Services [address] [place] [address] Breast Imaging Report MR#: [id number] Acct: [id number] Name: URSULA LANE Rep #: [id number] : 1950 F 63 From: Robert Dominguez MD PCP: Crystal Hernandez MD Status: REG CLI Study: Marcos Tucker Digital AND CAD Date of Exam: 10/21/14 Exam# [id number] Ordering Dr: Rupa Tang MD MAMMOGRAPHY - BILATERAL SCREENING REASON FOR EXAM: Female, 63 years old. Routine annual screening examination. PERTINENT HISTORY: Non-contributory. TECHNIQUE: Digital examination. Mediolateral oblique (MLO) and craniocaudad (CC) views of both breasts were obtained. CAD: CAD was performed on this study. COMPARISON: Comparison is made with prior study dated January 24, 2013 and January 06, 2012. FINDINGS: Breast Composition: The breasts are heterogeneously dense, which may obscure small masses. There are no dominant masses or suspicious calcifications. No other significant abnormalities are identified. There has been no significant change since the prior study. IMPRESSION: Stable bilateral screening mammogram. Yearly follow-up recommended. (A) ASSESSMENT CATEGORY: BIRADS Category 2: Benign. A letter regarding these results will be sent to the patient by the facility within 30 days. Approximately 10% of breast cancers are not detected by mammography. A normal mammogram should not delay biopsy of a clinically suspicious abnormality. Electronically Signed: Robert Dominguez MD at 13:16 EDT Tel [phone], Service support [phone], CC: Crystal Hernandez MD; Rupa Tang MD Custody Officer: Yuridia Brennan Work Phone: Start: 03-16-2014 End: 03-17-2014 Abdomen/Pelvis WITH Contrast Comments: See Note; NOTES: [facility] Imaging Services [address] [place] [address] CAT Scan Report MR#: [id number] Acct: [id number] Name: URSULA LANE Rep #: [id number] : 1950 F 63 From: Marilu Woods PCP: Crystal Hernandez MD Status: REG CLI Study: Abdomen/Pelvis WITH Contrast Date of Exam: 03/16/14 Exam# [id number] Ordering Dr: Franco Pena MD STUDY: CT ABDOMEN AND PELVIS WITH CONTRAST REASON FOR EXAM: Female, 63 years old. Gross hematuria. History of diabetes, hypertension. RADIATION DOSAGE (If Supplied By Facility): CTDIvol = ( 19.46 ) mGy, DLP = ( 1714.88 ) mGycm TECHNIQUE: Transaxial images were obtained from the dome of the diaphragm to the symphysis pubis without oral contrast. 100ml ml of Isovue 300 contrast was administered. Sagittal and coronal images were reconstructed. COMPARISON: None. FINDINGS: The visualized lung bases reveal posteriorly subpleural mild atelectasis. The visualized portions of the heart are within normal limits. Normal liver. Normal gallbladder and extrahepatic biliary system. Normal spleen. Normal pancreas. Borderline pancreatic ductal dilatation. Tail of the pancreas is not visualized. Normal bilateral adrenal glands. There are several 2-3 mm right renal calculi present. There is no right hydronephrosis. A tiny calcific density is seen in the course of a right mid/distal ureter, likely a vascular calcification, not ureteral calculus. 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 Several 2-6 mm left renal calculi are seen with no hydronephrosis or hydroureter. There is a small hiatal hernia. Normal small intestine. Moderately increased stool is seen in entire colon. There is non-visualization of the appendix. There is no secondary sign of acute appendicitis. There is mild atherosclerotic calcification of the abdominal aorta, without a demonstrated aneurysm. Normal inferior vena cava. Normal retroperitoneum. Normal urinary bladder. Possibly a small <2 mm stone is present inferiorly in mid urinary bladder. Normal visualized uterus. Normal abdominal wall. Small inguinal lymph nodes are present. There is evidence of lumbar facet arthrosis. IMPRESSION: 1. Bilateral nephrolithiasis. No evidence of obstructive nephropathy. 2. Possibly a small right renal angiomyolipoma. Correlation with ultrasound exam would be helpful. 3. <2 mm stone in the urinary bladder. 4. Moderately increased colonic stool volume. 5. Lower lumbosacral facet arthrosis. Electronically Signed: Sharif Woods MD at 10:35 EDT Tel , Service support [phone], CC: Crystal Hernandez MD; Franco Pena MD Custody Officer: Signed Crystal Hernandez Start: 05-18-2013 End: 05-21-2013 Nuclear Stress Test - Treadmil Comments: See Note; NOTES: [facility] Imaging Services [address] [place] [address] Nuclear Medicine Report MR#: [id number] Acct: [id number] Name: URSULA LANE Rep #: [id number] : 1950 F 62 From: Sheldon Moran MD PCP: Status: REG CLI Study: Nuclear Stress Test - Treadmil Date of Exam: 05/18/13 Exam# [id number] Ordering Dr: Crystal Hernandez MD EXERCISE MYOCARDIAL PERFUSION STRESS TEST HISTORY: This is a 62-year-old lady with a history of chest pain. BASELINE INFORMATION: The resting EKG demonstrates normal sinus rhythm with a rate of 64 beats per minute. Normal intervals are noted. STRESS TEST: The patient exercised according to the regular Rafy protocol for a total duration of 9 minutes and 31 seconds. The maximum heart rate attained was 144 beats per minute, which was 91% of maximum predicted heart rate. The maximum workload attained was 10.9 METS. The patient completed 31 seconds into stage IV of the Rafy protocol. The test was terminated due to leg fatigue and shortness of breath. At rest there were no ST or T-wave changes noted to suggest ischemia. At peak exercise nonspecific ST--T-wave changes were noted, which did not meet the criteria for ischemia. The resting blood pressure was 134/82 with a peak blood pressure of 144/80. Rate pressure product was 19,500. CONCLUSION: 1. Exercise stress test with no EKG criteria for ischemia at a high workload. 2. No clinical angina noted. MYOCARDIAL PERFUSION PROTOCOL: 11.3 mCi of Sestamibi was injected at rest. The patient exercised according to the regular Rafy protocol for a total duration of 9 minutes and 31 seconds attaining 91% of maximum predicted heart rate and a workload of 10.9 METS. At peak exercise, 32.9 mCi of Sestamibi was injected. Stress images were obtained. Stress and rest images were reconstructed and compared in the short axis, vertical long, and horizontal long axes. Gated images were also obtained. PERFUSION SPECT ANALYSIS: Review of the images demonstrate normal uptake of tracer noted in all areas of the myocardium. The resting images similarly demonstrated normal uptake of tracer noted in all areas of the myocardium. No reversibility is noted to suggest ischemia. GATED SPECT ANALYSIS: The gated ejection fraction is noted to be 72% with no wall motion abnormalities noted. CONCLUSION 1. Exercise myocardial perfusion stress test with no evidence of ischemia at a high workload. 2. Preserved ejection fraction. 3. Good functional work capacity. CC: Crystal Hernandez MD Custody Officer: ANTHONY Signed Crystal Hernandez Work Phone: Cataract extraction and insertion of intraocular lens AFSHIN Nguyen Comment on above: OD 2014 retina surgery - 2012 AFSHIN Nguyen Comment on above: No post-op complicat ions. does still have a "dukes bubble" at 7 oclock in vision Plan of Treatment Date Care Activity Detail Author Start: 10-15-2029 Lipid panel [facility] Start: 03-26-2029 Lipid panel [facility] Start: 01-09-2029 Colorectal Cancer Screening [facility]orectal [facility] Comment on above: Postponed from 10/31/1995 (Postponed To Appropriate Date) Start: 01-09-2029 Screening for malignant neoplasm of colon Colorectal Cancer Screening [facility] Comment on above: Postponed from 10/31/1995 (Postponed To Appropriate Date) Start: 05-19-2028 Lipid 1996 panel - Serum or Plasma Lipid Screening [facility] Start: 05-19-2028 Lipid panel Lipid Screening [facility] Start: 02-16-2028 Diabetes Screening Diabetes Screening [facility] Start: 12-01-2027 Lipid 1996 panel - Serum or Plasma Lipid Screening [facility] Start: 12-01-2027 LIPID SCREEN LIPID SCREEN [facility] Start: 11-23-2027 Diabetes Screening Diabetes Screening [facility] Start: 10-16-2027 Diabetes Screening Diabetes Screening [facility] Start: 05-19-2027 LIPID SCREEN LIPID SCREEN [facility] Start: 03-26-2027 Diabetes Screening Diabetes Screening [facility] Start: 12-07-2026 Screening for osteoporosis Bone Density Screening [facility] Start: 12-02-2026 LIPID SCREEN LIPID SCREEN [facility] Start: 10-23-2026 Diabetes Screening Diabetes Screening [facility] Start: 08-10-2026 LIPID SCREEN LIPID SCREEN [facility] Start: 05-19-2026 Diabetes Screening Diabetes Screening [facility] Start: 03-20-2026 Annual PCP Team Chronic Disease Visit Annual PCP Team Chronic Disease Visit [facility] Start: 02-15-2026 Annual PCP Team Chronic Disease Visit Annual PCP Team Chronic Disease Visit [facility] Start: 02-15-2026 Complete blood count Hemoglobin/Hematocrit [facility] Start: 02-15-2026 Creatinine measurement Serum Creatinine [facility] Start: 01-28-2026 Annual PCP Team Chronic Disease Visit Annual PCP Team Chronic Disease Visit [facility] Start: 01-10-2026 DIABETES SCREEN DIABETES SCREEN [facility] Start: 01-10-2026 Diabetes Screening Diabetes Screening [facility] Start: 12-24-2025 Annual PCP Team Chronic Disease Visit Annual PCP Team Chronic Disease Visit [facility] Start: 11-30-2025 DIABETES SCREEN DIABETES SCREEN [facility] Start: 11-27-2025 Annual PCP Team Chronic Disease Visit Annual PCP Team Chronic Disease Visit [facility] Start: 11-22-2025 Creatinine measurement Serum Creatinine [facility] Start: 10-26-2025 Annual PCP Team Chronic Disease Visit Annual PCP Team Chronic Disease Visit [facility] Start: 10-26-2025 Anxiety Screening Anxiety Screening [facility] Start: 10-26-2025 Depression Screening Depression Screening [facility] Start: 10-26-2025 Medicare Annual Wellness Visit Medicare Annual Wellness Visit [facility] Start: 10-15-2025 Complete blood count Hemoglobin/Hematocrit [facility] Start: 10-15-2025 Creatinine measurement Serum Creatinine [facility] Start: 09-16-2025 End: 09-16-2025 Patient encounter procedure 09/16/2025 9:00 AM EDT Office Visit Cardiology [address] [place] [address] Teri Griffin MD [address] [facility], [address] [place] [address] Dx: New onset a-fib (HCC) [I48.91] Cardiology Comment on above: Dx: New onset a-fib (HCC) [I48.91] Start: 09-03-2025 Screening for malignant neoplasm of breast Mammogram [facility] Start: 06-10-2025 End: 06-10-2025 Patient encounter procedure 06/10/2025 1:20 PM EST Office Visit Internal Medicine [place] [address] [facility] [place] [place] [address] Jessica Concepcion APRN.AUTO SERVICE WRITER [address] [facility] [place] [place] [address] 3 month follow up [facility] [place] Comment on above: 3 month follow up Start: 05-19-2025 DIABETES SCREEN DIABETES SCREEN [facility] Start: 05-07-2025 Annual PCP Team Chronic Disease Visit Annual PCP Team [facility] Start: 05-01-2025 End: 05-01-2025 Patient encounter procedure 05/01/2025 8:20 AM EDT Office Visit Internal Medicine [place] [address] [facility] [place] [place] [address] Emma Schultz MD [address] [facility] [place] [address] 3 month follow up [facility] [place] Comment on above: 3 month follow up Start: 04-26-2025 Annual PCP Team Chronic Disease Visit Annual PCP Team [facility] Start: 03-27-2025 End: 03-27-2025 Patient encounter procedure 03/27/2025 8:20 AM EDT Appointment Cat Scan [address] [place] [address] Calculus of ureter [N20.1] Cat Scan Comment on above: Calculus of ureter [N20.1] Start: 03-20-2025 End: 03-20-2025 Patient encounter procedure 03/20/2025 8:40 AM EDT Office Visit Internal Medicine [place] [address] [facility] [place] [place] [address] Emma Schultz MD [address] [place] [address] 4 week followup Internal Medicine [place] Comment on above: 4 week followup Start: 03-04-2025 Influenza vaccination Influenza Vaccine (#1) [facility] Start: 02-18-2025 End: 02-18-2025 Patient encounter procedure 02/18/2025 1:50 PM EDT Office Visit Cardiology [address] [place] [address] Dx: Irregular heart rhythm [I49.9]; New onset a-fib (HCC) [I48.91]; Obstructive sleep apnea (adult) (pediatric) [G47.33]; Palpitations [R00.2] Cardiology Comment on above: Dx: Irregular heart rhythm [I49.9]; New onset a-fib (HCC) [I48.91]; Obstructive sleep apnea (adult) (pediatric) [G47.33]; Palpitations [R00.2] Start: 02-15-2025 End: 05-17-2025 CBC W Auto Differential panel - Blood [facility] Comment on above: Expected: 02/15/2025, Expires: Start: 02-15-2025 End: 05-17-2025 Comprehensive metabolic 2000 panel - Serum or Plasma [facility] Comment on above: Expected: 02/15/2025, Expires: Start: 02-15-2025 End: 05-17-2025 Magnesium [Mass/volume] in Serum or Plasma [facility] Comment on above: Expected: 02/15/2025, Expires: Start: 02-15-2025 End: 05-17-2025 Thyrotropin [Units/volume] in Serum or Plasma [facility] Comment on above: Expected: 02/15/2025, Expires: Start: 01-28-2025 End: 04-29-2025 Borrelia burgdorferi IgG and IgM panel - Serum [facility] Work Phone: Comment on above: Expected: 01/28/2025, Expires: Start: 01-28-2025 End: 01-28-2025 Patient encounter procedure 01/28/2025 9:20 AM EDT Office Visit Internal Medicine [place] [address] [place], [place] [address] Emma Schultz MD [address] [place] [address] 3 month follow up Internal Medicine [place] Comment on above: 3 month follow up Start: 12-24-2024 End: 03-25-2025 Borrelia burgdorferi IgG and IgM panel - Serum [facility] Work Phone: Comment on above: Expected: 12/24/2024, Expires: Start: 12-18-2024 DIABETES SCREEN DIABETES SCRE[facility] Start: 12-11-2024 DIABETES SCREEN DIABETES SCREEN [facility] Start: 12-11-2024 End: 12-11-2024 Patient encounter procedure Podiatry Comment on above: Numbness and tingling of foot [R20.0, R2 0.2] Sleep apnea, unspeci fied type [G47.30] Start: 12-07-2024 End: 12-07-2024 Patient encounter procedure 12/07/2024 9:30 AM EDT Appointment Radiology [address] [place] [id number] Osteoporosis, unspecified osteoporosis type, unspecified pathological fracture presence [M81.0] Radiology Comment on above: Osteoporosis, unspecified osteoporosis t ype, unspecified pathological fracture presence [M81.0] Start: 12-03-2024 End: 12-03-2024 Patient encounter procedure 12/03/2024 7:45 PM EDT Office Visit [facility] [address] [place] [address] Sleep apnea, unspecified type [G47.30] [facility] Comment on above: Sleep apnea, unspecified type [G47.30] Start: 11-27-2024 End: 11-27-2024 Patient encounter procedure 11/27/2024 9:20 AM EDT Office Visit Internal Medicine [place] [address] [facility] [place] [address] Emma Schultz MD [address] [place] [address] Buzzing sensation in my right foot. Internal Medicine [place] Comment on above: Buzzing sensation in my right foot. Start: 11-22-2024 End: 11-22-2024 ambulatory 11/22/2024 10:30 AM EDT Results Only [place] [facility] Draw Station [address] [place] [address] [facility] Start: 11-20-2024 End: 11-20-2024 ambulatory 11/20/2024 10:15 AM EDT Results Only [place] [facility] Draw Station [address] [place] [address] [place] [facility] Start: 10-26-2024 End: 10-26-2024 Patient encounter procedure 10/26/2024 8:40 AM EDT Office Visit Internal Medicine [place] [address] [place] [address] Emma Schultz MD [address] [place] [address] medicare wellness Internal Medicine [place] Comment on above: medicare wellness Start: 10-23-2024 Annual PCP Team Chronic Disease Visit Annual PCP Team [facility] Start: 10-12-2024 End: 01-11-2025 CBC W Auto Differential panel - Blood COMPLETE BLOOD COUNT AND DIFFERENTIAL Lab Routine Mixed hyperlipidemia Expected: 10/12/2024, Expires: 01/11/2025 [facility] Comment on above: Expected: 10/12/2024, Expires: Start: 10-12-2024 End: 01-11-2025 Comprehensive metabolic 2000 panel - Serum or Plasma COMPREHENSIVE METABOLIC PANEL Lab Routine Mixed hyperlipidemia Expected: 10/12/2024, Expires: 01/11/2025 [facility] Comment on above: Expected: 10/12/2024, Expires: Start: 10-12-2024 End: 01-11-2025 Hemoglobin A1c in Blood HEMOGLOBIN A1C Lab Routine Elevated glucose Expected: 10/12/2024, Expires: 01/11/2025 [facility] Comment on above: Expected: 10/12/2024, Expires: Start: 10-12-2024 End: 01-11-2025 Lipid 1996 panel - Serum or Plasma LIPID PANEL, FASTING Lab Routine Mixed hyperlipidemia Expected: 10/12/2024, Expires: 01/11/2025 [facility] Work Phone: Comment on above: Expected: 10/12/2024, Expires: Start: 10-12-2024 End: 01-11-2025 Thyrotropin [Units/volume] in Serum or Plasma THYROID STIMULATING HORMONE Lab Routine Hypothyroidism, unspecified type Expected: 10/12/2024, Expires: 01/11/2025 [facility] Comment on above: Expected: 10/12/2024, Expires: Start: 10-06-2024 Covid-19 Vaccine () Covid-19 Vaccine () [facility] Start: 09-03-2024 End: 09-03-2024 Patient encounter procedure 09/03/2024 9:10 AM EST Appointment Mammogram [address] [place] [address] Encounter for screening mammogram for breast cancer [Z12.31] Mammogram Comment on above: Encounter for screening mammogram for br east cancer [Z12.31] Start: 08-31-2024 Screening for malignant neoplasm of breast [facility]ammogram [facility] Start: 08-30-2024 End: 05-26-2025 DBT Breast - bilateral screening [facility] Radiology Routine Encounter for screening mammogram for breast cancer Expected: 08/30/2024, Expires: 05/26/2025 [facility] Work Phone: Comment on above: Expected: 08/30/2024, Expires: Start: 02-10-2025 Annual PCP Team Chronic Disease Visit Annual PCP Team Chronic Disease [facility] Start: 08-10-2024 DIABETES SCREEN DIABETES SCREEN [facility] Start: 07-25-2024 Annual PCP Team Chronic Disease Visit Annual PCP Team Chronic Disease Visit [facility] Start: 07-04-2024 Advance Directive Discussion Advance Directive Discussion [facility] Start: 06-10-2024 Annual PCP Team Chronic Disease Visit Annual PCP Team Chronic Disease Visit [facility] Start: 06-10-2024 Hepatitis C Screening Hepatitis C Screening [facility] Comment on above: Postponed from 1968 (Declined at t his time) Start: 06-10-2024 Hepatitis C screening Hepatitis C Screening [facility] Comment on above: Postponed from 1968 (Declined at t his time) Start: 06-10-2024 Pneumococcal Vaccine: 65+ (2 - PCV) Pneumococcal Vaccine: 65+ (2 - PCV) [facility] Comment on above: Postponed from 03/28/2021 (Declined at t his time) Start: 06-10-2024 Pneumococcal Vaccine: 65+ (2 of 2 - PCV) Pneumococcal Vaccine: 65+ (2 of 2 - PCV) [facility] Comment on above: Postponed from 03/28/2021 (Declined at t his time) Start: 06-10-2024 Urine microalbumin profile DTaP,Tdap,Td Vaccine (1 - Tdap) [facility] Comment on above: Postponed from 09/15/2005 (Declined at t his time) Start: 04-26-2024 End: 04-26-2024 Patient encounter procedure 04/26/2024 9:00 AM EDT Office Visit Internal Medicine [place] [address] [place] [address] Emma Schultz MD [address] [place] [address] 6 month follow up Internal Medicine [place] Comment on above: 6 month follow up Start: 03-26-2024 End: 03-26-2024 ambulatory 03/26/2024 11:45 AM EDT Results Only [place] [facility] Draw Station [address] [place] [address] [facility] Start: 03-21-2024 End: 06-20-2024 CBC W Auto Differential panel - Blood COMPLETE BLOOD COUNT AND DIFFERENTIAL Lab Routine Stage 3a chronic kidney disease (HCC) Iron deficiency Expected: 03/21/2024, Expires: 06/20/2024 [facility] Work Phone: Comment on above: Expected: 03/21/2024, Expires: 4 Start: 03-21-2024 End: 06-20-2024 Comprehensive metabolic 2000 panel - Serum or Plasma COMPREHENSIVE METABOLIC PANEL Lab Routine Stage 3a chronic kidney disease (HCC) Mixed hyperlipidemia Expected: 03/21/2024, Expires: 06/20/2024 [facility] Comment on above: Expected: 03/21/2024, Expires: Start: 03-21-2024 End: 06-20-2024 Lipid 1996 panel - Serum or Plasma LIPID PANEL BASIC Lab Routine Mixed hyperlipidemia Expected: 03/21/2024, Expires: 06/20/2024 [facility] Comment on above: Expected: 03/21/2024, Expires: Start: 03-21-2024 End: 06-20-2024 Thyrotropin [Units/volume] in Serum or Plasma THYROID STIMULATING HORMONE Lab Routine Hypothyroidism, unspecified type Expected: 03/21/2024, Expires: 06/20/2024 [facility] Comment on above: Expected: 03/21/2024, Expires: 4 Start: 03-15-2024 End: 03-15-2024 ambulatory 03/15/2024 10:45 AM EDT OT/PT/Speech Visit [facility] [address] [place] [id number] Kostas Talbert, PT [address] [place] [address] M25.511 (ICD-10-CM) - Acute pain of right shoulder R29.898 (ICD-10-CM) - RUE weakness [facility] Comment on above: M25.511 (ICD-10-CM) - Acute pain of righ t shoulder R29.898 (ICD-10-CM) - RUE weakness Start: 03-06-2024 End: 03-06-2024 ambulatory 03/06/2024 10:00 AM EDT OT/PT/Speech Visit [facility] [address] [place], [place] [id number] Kostas Talbert, PT [address] [place], [place] [id number] M25.511 (ICD-10-CM) - Acute pain of right shoulder R29.898 (ICD-10-CM) - RUE weakness [facility] Comment on above: M25.511 (ICD-10-CM) - Acute pain of righ t shoulder R29.898 (ICD-10-CM) - RUE weakness Start: 03-04-2024 Covid-19 Vaccine ( season) Covid-19 Vaccine ( season) [facility] Start: 03-04-2024 Covid-19 Vaccine ( season) Covid-19 Vaccine () [facility] Start: 03-04-2024 Influenza vaccination Influenza Vaccine (#1) [facility] Start: 02-20-2024 End: 02-20-2024 ambulatory 02/20/2024 11:30 AM EDT OT/PT/Speech Visit [facility] [address] [place], [place] [id number] Kostas Talbert, PT [address] [place], [place] [id number] M25.511 (ICD-10-CM) - Acute pain of right shoulder R29.898 (ICD-10-CM) - RUE weakness [facility] Comment on above: M25.511 (ICD-10-CM) - Acute pain of righ t shoulder R29.898 (ICD-10-CM) - RUE weakness Start: 02-06-2024 End: 02-06-2024 ambulatory 02/06/2024 11:30 AM EDT OT/PT/Speech Visit [facility] [address] [place] [address] Kostas Talbert, PT [address] [place] [address] M25.511 (ICD-10-CM) - Acute pain of right shoulder R29.898 (ICD-10-CM) - RUE weakness [facility] Comment on above: M25.511 (ICD-10-CM) - Acute pain of righ t shoulder R29.898 (ICD-10-CM) - RUE weakness Start: 01-23-2024 End: 01-23-2024 ambulatory 01/23/2024 10:45 AM EDT OT/PT/Speech Visit [facility] [address] [place] [address] Kostas Talbert, PT [address] [place] [address] M25.511 (ICD-10-CM) - Acute pain of right shoulder R29.898 (ICD-10-CM) - RUE weakness [facility] Comment on above: M25.511 (ICD-10-CM) - Acute pain of righ t shoulder R29.898 (ICD-10-CM) - RUE weakness Start: 01-17-2024 End: 01-17-2024 ambulatory 01/17/2024 11:30 AM EDT OT/PT/Speech Visit [facility] [address] [place] [address] Kostas Talbert, PT [address] [place] [address] M25.511 (ICD-10-CM) - Acute pain of right shoulder R29.898 (ICD-10-CM) - RUE weakness [facility] Comment on above: M25.511 (ICD-10-CM) - Acute pain of righ t shoulder R29.898 (ICD-10-CM) - RUE weakness Start: 01-13-2024 End: 01-13-2024 ambulatory 01/13/2024 9:15 AM EDT OT/PT/Speech Visit [facility] [address] [place] [address] Kostas Talbert, PT [address] [facility] [place] [address] M25.511 (ICD-10-CM) - Acute pain of right shoulder [facility] Comment on above: M25.511 (ICD-10-CM) - Acute pain of righ t shoulder Start: 01-10-2024 End: 01-10-2024 ambulatory 01/10/2024 9:15 AM EDT OT/PT/Speech Visit [facility] [address] [place] [place] [address] Kostas Talbert, PT [address] [place] [address] M25.511 (ICD-10-CM) - Acute pain of right shoulder R29.898 (ICD-10-CM) - RUE weakness [facility] Comment on above: M25.511 (ICD-10-CM) - Acute pain of righ t shoulder R29.898 (ICD-10-CM) - RUE weakness Start: 01-03-2024 End: 01-03-2024 ambulatory 01/03/2024 8:30 AM EDT OT/PT/Speech Visit [facility] [address] [place] [address] Kostas Talbert, PT [address] [facility] [place] [address] M25.511 (ICD-10-CM) - Acute pain of right shoulder R29.898 (ICD-10-CM) - RUE weakness [facility] Comment on above: M25.511 (ICD-10-CM) - Acute pain of righ t shoulder R29.898 (ICD-10-CM) - RUE weakness Start: 12-20-2023 End: 12-20-2023 ambulatory 12/20/2023 11:30 AM EDT OT/PT/Speech Visit [facility] [address] [place] [address] Kostas Talbert, PT [address] [facility] [place] [address] Acute pain of right shoulder [facility] Comment on above: Acute pain of right shoulder Start: 12-14-2023 Documentation procedure 12/14/2023 Plan of Care Documentation [facility] [address] [place] [address] [facility] Start: 12-14-2023 End: 12-14-2023 ambulatory 12/14/2023 7:45 AM EDT OT/PT/Speech Visit [facility] [address] [place] [address] Kostas Talbert, PT [address] [facility] [place] [address] Acute pain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 Unknown [id number] Unknown [id number] Unknown [id number] Unknown 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 [facility] Work Phone: Start: 02-19-2021 End: 04-07-2022 Tobacco smoking status NHIS Never smoked tobacco [facility] Start: 02-19-2021 End: 04-07-2022 Tobacco use and exposure Smokeless tobacco non-user [facility] Start: 02-19-2021 End: 03-20-2025 Alcohol intake Current drinker of alcohol (finding) [facility] Start: 08-15-2021 End: 06-07-2022 History SDOH Alcohol Std Drinks 1 [facility] Start: 02-19-2021 History SDOH Alcohol Comment at dinner [facility] Start: 08-15-2021 End: 06-07-2022 History SDOH Social Connections Phone 3 [facility] Start: 08-15-2021 History SDOH Social Connections Get Together 98 [facility] Start: 08-15-2021 End: 06-07-2022 History SDOH Physical Activity DPW 2 [facility] Start: 08-15-2021 End: 06-07-2022 History SDOH Financial 5 [facility] Start: 1950 Sex Assigned At Female C [facility] Start: 11-28-2021 End: 04-07-2022 Exposure to SARS-CoV-2 (event) Not sure [facility] Work Phone: Start: 06-07-2022 History SDOH Social Connections Phone 4 [facility] Start: 06-07-2022 History SDOH Physica l Activity MPS 6 [facility] Start: 06-06-2022 End: 08-29-2023 Social connection and isolation panel [facility] Do you belong to any clubs or organizations such as confucianist groups, unions, fraternal or athletic groups, or school groups? Yes [facility] Are you now , , , , never or living with a partner? [facility] How often to you hav e a drink containing alcohol? Monthly or less [facility] How many standard dr inks containing alcohol do you have on a typical day? 1 or 2 [facility] How often do you hav e 6 or more drinks on 1 occasion? Never [facility] Start: 06-04-2012 How hard is it for y ou to pay for the very basics like food, housing, medical care, and heating Not hard at all [facility] Do you feel stress - tense, restless, nervous, or anxious, or unable to sleep at night because your mind is troubled all the time - these days [OSQ] Not at all [facility] (I/We) worried wheth er (my/our) food would run out before (I/we) got money to buy more. Never true [facility] In the past 12 month s, was there a time when you were not able to pay the mortgage or rent on time? No [facility] Start: 05-14-2021 Gender identity Identifies as female gender (finding) [facility] Start: 09-21-2024 Sex Female (finding) [facility] Functional Status Date Assessment Result Facility 10-24-2024 Total score [AUDIT-C] 0 10/25/19 8:42 PM EDT User, [facility] 10-24-2024 How often to you hav e a drink containing alcohol? Never 10/24/2024 8:42 PM EDT User, Mychart Never [facility] 10-24-2024 Functional status Patient does n ot drink 10/24/2024 8:42 PM EDT User, [facility] Patient does not drink [facility] 10-24-2024 How often do you hav e 6 or more drinks on 1 occasion? Never 10/24/2024 8:42 PM EDT [facility] Clinical Notes 12-08-2021 to 04-29-2025 [facility]/20/2025 11:59 AM EDTTelephone Encounter - Zulma Mahoney [facility] - 03/20/2025 11:59 AM Emma Wild MD - 03/20/2025 9:23 AM EDT Note Date & Type Note Facility 04-29-2025 Note HNO ID: [id number] Author: ALIZE MORGAN MD Service: ? Author Type: Physician Type: Procedures Filed: 04/29/2025 13:29 Note Text: [facility]OLOGY PROCEDURE NOTE NAME: Ursula [place] SUMMARY: #Gross hematuria. CTU-04/17/25 -- negative. #Bilateral nephrolithiasis. With superimposed nephrocalcinosis. Up to 7 mm in right kidney and up to 6 mm in the left kidney. #AML, right. 1 cm. Surgeon(s)/Proceduralist(s) and Ip/Mosaic Technician(s): Alize Morgan MD Administration Vice President present: ABNER Christy Procedure(s): Flexible cystoscopy Anesthesia: 2% lidocaine, intraurethral Estimated Blood Loss: 0 ml Specimens: None Implantable Devices: None Drains: None Complications: None immediate Accidental Punctures and Lacerations: None Pre-Op/Pre-Procedure Diagnosis: (R31.0) Gross hematuria (primary encounter diagnosis) Post-Op/Post-Procedure Diagnosis: Same as above Operative Indications: Ursula Lane is a 74 year old female who presents for the procedure. Informed consent was obtained. Findings: Unremarkable urethra. Unremarkable bladder. No tumors, foreign bodies, or diverticula. Procedure Narrative: The patient was positioned on the exam table in the supine position. The genitalia were prepped and draped in the usual sterile fashion. The urethra was anesthetized with 2% lidocaine jelly. A timeout was performed, wherein the patient, procedure, and laterality were confirmed. The flexible cystoscope was inserted into the urethra. The entire urethra and bladder were inspected. The findings were as noted above. The cystoscope was removed. The patient tolerated the procedure well and was discharged home in satisfactory condition. Home-going instructions were reviewed and provided to the patient. Follow Up: Negative cystoscopy. Follow up urine cytology results; sent today. Return in about 6 weeks (around 06/10/2025) for KUB, blood work, Litholink. Orders this visit: Orders Placed This Encounter Cysto KUB - 2 wk Order Comments: In 2 weeks Standing Status: Future Expiration Date: 05/30/2026 Urine cytology - hematuria Clinical History/Diagnosis: HEMATURIA Source of specimen(s):: Urine, Voided [1276] Litholink (urine only) Standing Status: Future Number of Occurrences: 1 Expected Date: 05/27/2025 Expiration Date: 08/26/2025 Basic Metabolic Panel Standing Status: Future Expected Date: 05/27/2025 Expiration Date: 08/26/2025 PTH Intact Standing Status: Future Expected Date: 05/27/2025 Expiration Date: 08/26/2025 Scheduling Instructions: In preparation for this test, do not take multivitamins or dietary supplements containing biotin (vitamin B7) for at least 12 hours. Biotin is commonly found in hair, skin, and nail supplements and multivitamins. Tell your doctor if you take supplements containing biotin as part of your medication history. Uric Acid Standing Status: Future Expected Date: 05/27/2025 Expiration Date: 08/26/2025 lidocaine urojet 2 % 6 mL topical gel (GLYDO) alpha lipoic acid 100 mg capsule Sig: Take 100 mg by mouth. calcium citrate/vitamin D3 (CITRACAL + D ORAL) Sig: Take by mouth. RABEprazole (ACIPHEX) 20 mg tablet Sig: Take 20 mg by mouth once daily. UNIVERSAL PROTOCOL / SAFETY CHECKLIST Sign In: A Moment of CARE was completed. Appropriate PPE (Personal Protective Equipment) worn by all providers involved with the procedure. Special equipment not required. Patient/Surrogate Stated/Verified: Patient name, Date of , Relevant allergies, and The intended procedure Time Out: Relevant labs, photos, and/or imaging studies have been reviewed. Intended patient and procedure match the source document(s) (e.g. consent, HANDP, associated studies [imaging, pathology]) match the intended patient and procedure. Consent obtained and matches the intended procedure. Yes. Correct side/site is not applicable. Medications required for this procedure are verified. Fire risk assessed and interventions discussed. Implants: are not applicable. Sign Out: Specimens are all correctly labeled and sent, if applicable. All instruments, equipment, possible retained foreign bodies are accounted for. Yes. The post-procedure plan of care has been communicated to the patient or surrogate. SIGNATURE: Alize Morgan MD PATIENT NAME: Ursula Lane DATE: April 29, 2025 TIME: 1:27 PM PAGER/CONTACT #: [phone] [facility] 04-29-2025 Note HNO ID: [id number] Author: ALIZE MORGAN MD Service: ? Author Type: Physician Type: Progress Notes Filed: 04/29/2025 13:29 Note Text: SUMMARY: #Gross hematuria. CTU-04/17/25 -- negative. #Bilateral nephrolithiasis. With superimposed nephrocalcinosis. Up to 7 mm in right kidney and up to 6 mm in the left kidney. #AML, right. 1 cm. [facility] 04-29-2025 Note HNO ID: [id number] Author: JAELYN THORNTON MA Service: ? Author Type: Registry Nurse Type: Progress Notes Filed: 04/29/2025 13:29 Note Text: Administration Vice President present: Jaelyn Thornton MA [facility] 04-17-2025 Note HNO ID: [id number] Author: SINDY WADDELL RT(Geovany) Service: ? Author Type: [employer] Officer Type: Progress Notes Filed: 04/17/2025 12:50 Note Text: Radiology Service Progress Note DATE OF SERVICE: April 17, 2025 TIME: 12:49 PM PATIENT IDENTITY VERIFICATION COMPLETED USING TWO (2) STANDARD IDENTIFIERS: Name and Date of confirmed by patient verbally. FALL SCREENING: Has the patient had 2 falls in the last year or 1 fall with injury or currently using an Ambulatory Assistive Device (Walker, Cane, Wheelchair, Crutches, etc.)? No PATIENT GENDER DATA: Assigned female at . status: : No status: NO. PATIENT RELEVANT IMPLANT DATA REVIEWED: Yes PATIENT PRESENTS WITH AN IMPLANTABLE OR ATTACHED PHYSICIAN IN PRIVATE PRACTICE: No ALLERGIES: Reviewed and unchanged CONTRAST ALLERGY: NO. EXAM: CT -CONTRAST INDUCED NEPHROPATHY RISK FACTORS: Patient age > 60 years CREATININE: Creatinine Date Value Ref Range Status 02/15/2025 1.07 (H) 0.58 - 0.96 mg/dL Final 11/22/2024 0.99 (H) 0.58 - 0.96 mg/dL Final 10/15/2024 1.08 (H) 0.58 - 0.96 mg/dL Final Estimated Glomerular Filtration Rate Date Value Ref Range Status 02/15/2025 55 (L) >=60 mL/min/1.73m? Final Comment: Estimated Glomerular Filtration Rate (eGFR) is calculated using the 2020 CKD-EPI creatinine equation. This equation utilizes serum creatinine, sex, and age as parameters. The creatinine assay has traceable calibration to isotope dilution-mass spectrometry. Refer to KDIGO guidelines for clinical interpretation. In patients with unstable renal function, e.g. those with acute kidney injury, the eGFR may not accurately reflect actual GFR. eGFR- Date Value Ref Range Status 08/10/2021 >60 Final P.O.C.T. RESULTS: POC done: Yes, See Lab Tab April 17, 2025 TREATMENT: N/A PERIPHERAL IV DATA: Ambulatory: A peripheral IV was started in the Left antecubital site with a Angio cath: 22 gauge. RADIOLOGY DEPARTMENT: CT; Exam(s) Completed: Urogram. Anesthesia: No SIGNATURE: RT Coco(R) PATIENT NAME: Ursula Lane DATE: April 17, 2025 TIME: 12:49 PM [facility] 04-09-2025 Note HNO ID: [id number] Author: ALIZE MORGAN MD Service: ? Author Type: Physician Type: Progress Notes Filed: 04/09/2025 14:37 Note Text: [facility] UROLOGY OUTPATIENT OFFICE NOTE PATIENT: Ursula Lane (74 year old) PCP: Emma Schultz MD ------ SUMMARY: CT-03/27/25 obtained for right flank pain showed Bilateral nephrolithiasis. Bilateral nephrocalcinosis.. No hydronephrosis. Possible nonobstructing calculus, 3 mm within the right ureter at the level of pelvic inlet " ASSESSMENT/PLAN: 1. Bilateral nephrolithiasis (N20.0) 2. Nephrocalcinosis (E83.59) 3. Nephrolithiasis (N20.0) - Recent CT scan on 03/27 showed multiple calculi in both kidneys as well as renal calcifications. No hydronephrosis observed. Chronic back pain may be related, but no acute pain reported during stone passage. Discussed surveillance versus intervention; leaning towards surveillance due to patient's history of passing stones without significant discomfort. Educated on dietary modifications to reduce oxalate intake and increase hydration. Ordered metabolic workup including blood tests and a 24-hour urine collection to identify risk factors for stone formation. Will provide a comprehensive list of dietary recommendations. Follow-up after completion of metabolic workup to discuss results and further preventive measures. 4. Gross hematuria (R31.0) - Hematuria noted during recent stone passage, exacerbated by anticoagulation therapy with Eliquis. Discussed differential diagnosis, including potential malignancies of the urinary tract. Ordered CT urogram to evaluate the urinary tract for any obstructive or neoplastic processes. Scheduled cystoscopy to directly visualize the bladder and urethra; procedure to be performed in-office with local anesthesia. Ordered urine cytology to assess for abnormal cells. Patient understands the importance of ruling out serious causes of hematuria and agrees to the proposed diagnostic workup. Follow-up appointment to review results and discuss further management. FOLLOW UP: Return for cystoscopy with CT urogram and cytology. ------ CHIEF COMPLAINT: The patient is a 74-year-old female with nephrolithiasis and nephrocalcinosis, presenting for evaluation of recurrent gross hematuria and management of nephrolithiasis. HISTORY OF PRESENT ILLNESS: The patient is a 74-year-old female with a history of nephrolithiasis and nephrocalcinosis, presenting for evaluation of recurrent kidney stones and hematuria. Nephrolithiasis: - Passed a kidney stone on 03/09 while visiting family in [place]. - Episode lasted all night with significant hematuria. - Currently on Eliquis; concerned about prolonged bleeding, which stopped by mid-morning. - Denies significant pain during stone passage; only aware of passing stones due to hematuria. - Has passed multiple stones in the past, with hematuria noted each time, even before starting anticoagulation therapy. - No history of surgical intervention for stones; has passed all stones spontaneously. - Chronic right-sided back pain; uncertain if related to stone passage. Nephrocalcinosis: - Recent CT scan on 03/27 showed stones in both kidneys and calcifications not in the urinary tract. - No hydronephrosis noted on the scan. - Has attempted dietary modifications to reduce high oxalic acid foods, such as spinach and certain nuts. - Avoids adding salt to cooking and prepares meals from scratch to minimize processed food intake. BRIAN/AUASS FORMS No question data found. REVIEW OF SYSTEMS: Noncontributory ALLERGIES: ALLERGIES Allergen Reactions Boniva [Ibandronate] Other: See Comments Was so down and out for 4 weeks she does not want the medication Fosamax [Alendronat* Other: See Comments She was down for a month after taking them . Just did not tolerate them at all S[place]-Mab-Ddm Red* Myalgia Restless legs. MEDICATIONS: azelastine 0.1% nasal spray Use 1 spray in each nostril two times a day. CPAP/BIPAP/OTHER Type .CPAPSettings into a note to see current settings/supplies/DME information. CPAP/BIPAP/OTHER Type .CPAPSettings into a note to see current settings/supplies/DME information. CPAP/BIPAP/OTHER Type .CPAPSettings into a note to see current settings/supplies/DME information. apixaban (ELIQUIS) 5 mg tab(s) Take 1 tablet by mouth two times a day. CPAP/BIPAP/OTHER Type .CPAPSettings into a note to see current settings/supplies/DME information. multivitamin tablet Take 1 tablet by mouth once daily. rosuvastatin (CRESTOR) 10 mg tablet Take 1 tablet by mouth once daily. SUMAtriptan (IMITREX) 20 mg/actuation nasal spray Use 1 s (more content not included)... [facility] 03-27-2025 Note HNO ID: [id number] Author: SINDY WADDELL RT(R) Service: ? Author Type: [employer] Officer Type: Progress Notes Filed: 03/27/2025 15:00 Note Text: Radiology Service Progress Note PATIENT NAME: Ursula Lane DATE OF SERVICE: March 27, 2025 TIME: 3:00 PM PATIENT IDENTITY VERIFICATION COMPLETED USING TWO (2) IDENTIFIERS: Name and Date of confirmed by patient verbally. FALL SCREENING: Has the patient had 2 falls in the last year or 1 fall with injury or currently using an Ambulatory Assistive Device (Walker, Cane, Wheelchair, Crutches, etc.)? No PATIENT GENDER DATA: Assigned female at . status: : No status: NO. PATIENT RELEVANT IMPLANT DATA REVIEWED: Yes PATIENT PRESENTS WITH AN IMPLANTABLE OR ATTACHED PHYSICIAN IN PRIVATE PRACTICE: No RADIOLOGY DEPARTMENT: CT; Exam(s) Completed: Flank Study. Anesthesia: No PERIPHERAL IV DATA: Not applicable SIGNED BY: RT Coco(R) March 27, 2025 3:00 PM [facility] 03-20-2025 Telephone encounter Note Behavioral Health Social Work Progress Note Patient identified for [facility] from: PCP Reason for referral: [facility] Behavioral Health Resources: Psychology - talk therapy [facility] encounter type: Telephone Encounter Attempts to Outreach: 1 attempt Patient Discharged?: No Patient reported that caregiver was able to meet their needs today?: N/A Phone call placed today that went to voicemail. Left my contact information and brief nature of call. Initial outreach also completed via Portr sending list of in network providers with insurance. RUPA Harding March 20, 2025 [facility] Work Phone: 03-20-2025 Miscellaneous Notes Behavioral Health Social Work Progress Note Patient identified for [facility] from: PCP Reason for referral: [facility] Behavioral Health Resources: Psychology - talk therapy [facility] encounter type: Telephone Encounter Attempts to Outreach: 1 attempt Patient Discharged?: No Patient reported that caregiver was able to meet their needs today?: N/A Phone call placed today that went to voicemail. Left my contact information and brief nature of call. Initial outreach also completed via Portr sending list of in network providers with insurance. RUPA Harding March 20, 2025 documented in this encounter [facility] 03-20-2025 Note HNO ID: [id number] Author: EMMA SCHULTZ MD Service: ? Author Type: Physician Type: Progress Notes Filed: 03/20/2025 10:14 Note Text: Reason for Visit Follow up pap usage HPI Mohini Lane is a 74-year-old female with a history of paroxysmal atrial fibrillation, nephrolithiasis, and SAIMA, presenting for follow-up on arrhythmia and recent diagnostic tests. She also reports a recent episode of hematuria and is experiencing sleep disturbances and stress related to caregiving for her , who has dementia. Mohini reports passing a kidney stone on 03/09, during which she experienced hematuria throughout the night. She describes the hematuria as significant, noting that on two occasions, the urine appeared to be "pure blood." The bleeding ceased by the morning. She expresses concern about the bleeding due to her current use of Eliquis but was relieved when it stopped. She recently underwent an echocardiogram and wore a nuclear monitoring technician. She inquires about the results, specifically asking if there were any indications of a major heart problem. Mohini started using a CPAP machine 5 days ago for SAIMA and reports struggling to adjust to it. She wakes up frequently at night but notes some improvement in sleep disturbances, which have decreased according to data on her phone. She believes the CPAP is helping and mentions using a small nose mask that is more comfortable than the one she had in the hospital. She has been taking an herbal sleep aid, Aldaril, and melatonin to help her sleep but forgot to take them last night, resulting in poor sleep. Mohini is experiencing high stress levels due to her 's dementia. She describes symptoms of ambiguous grief and expresses interest in talking to a counselor. Her exhibits behaviors such as hovering and perseverating, which she finds challenging. She notes that he appears stable at the moment but has shown some deterioration over time. She has taken steps to resign his guardianship due to his condition. Mohini has a family history of strokes on both sides, with her mother reportedly having dementia due to multiple mini-bleeds in the brain. She inquires about the necessity of continuing Eliquis and mentions having one refill left. She also expresses concern about the potential for future kidney stones and the associated bleeding risk while on Eliquis. She had a previous episode in 2016 where she experienced bleeding for 2-3 days due to kidney stones. SOCIAL HISTORY[1] Past medical history, appointments, medications, allergies reviewed. Pertinent Lab/Diagnostic Studies are reviewed and discussed today Current Outpatient Medications: CPAP/BIPAP/OTHER CPAP/BIPAP/OTHER apixaban (ELIQUIS) 5 mg tab(s) CPAP/BIPAP/OTHER multivitamin tablet rosuvastatin (CRESTOR) 10 mg tablet SUMAtriptan (IMITREX) 20 mg/actuation nasal spray levothyroxine (SYNTHROID) 50 mcg tablet acebutolol (SECTRAL) 200 mg capsule albuterol HFA (VENTOLIN HFA) 90 mcg/actuation inhaler azelastine 0.1% nasal spray niacin (NIACIN) 500 mg tablet lecithin 1,000 mg chew ubidecarenone Q-10 (COENZYME Q-10) 10 mg cap VIT D3-FOLIC [id number] ORAL GAMMA-AMINOBUTYRIC ACID, BULK, MISC polyethylene glycol 3350 (MIRALAX ORAL) glucosam/chond-msm1/C/castro/bor ([id number] COMPLEX ORAL) magnesium glycinate (MAG GLYCINATE ORAL) Health Maintenance Hepatitis C Screening DTaP,Tdap,Td Vaccine(1 - Tdap) Pneumococcal Vaccine: 50+(2 of 2 - PCV) Advance Directive Discussion Influenza Vaccine(1) Mammogram Screening@ Review Of Systems Constitutional: (+) insomnia Psychiatric: (+) stress Physical Exam BP 111/67 Pulse 71 Resp 16 Wt 62.5 kg (137 lb 12.8 oz) BMI 24.41 kg/m? GENERAL: NAD, alert and oriented SKIN: unremarkable, no rash or skin lesions. HEAD: normocephalic EYES: PERRLA, EOMI, conjunctiva clear EARS: external ears normal, canals clear, TM's normal. LUNGS: normal breathing effort EXTREMITIES: Normal, No deformities, No skin discoloration, No edema. 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 Acute stress reaction (F43.0) High stress levels and symptoms of ambiguous grief related to caregiving responsibilities for with dementia. - Referred to psychology for short-term counseling. - Provided education on the im (more content not included)... [facility] 03-20-2025 History of Presen t illness Narrative Reason for Visit Follow up pap usage HPI Mohini Lane is a 74-year-old female with a history of paroxysmal atrial fibrillation, nephrolithiasis, and SAIMA, presenting for follow-up on arrhythmia and recent diagnostic tests. She also reports a recent episode of hematuria and is experiencing sleep disturbances and stress related to caregiving for her , who has dementia. Mohini reports passing a kidney stone on 03/09, during which she experienced hematuria throughout the night. She describes the hematuria as significant, noting that on two occasions, the urine appeared to be "pure blood." The bleeding ceased by the morning. She expresses concern about the bleeding due to her current use of Eliquis but was relieved when it stopped. She recently underwent an echocardiogram and wore a nuclear monitoring technician. She inquires about the results, specifically asking if there were any indications of a major heart problem. Mohini started using a CPAP machine 5 days ago for SAIMA and reports struggling to adjust to it. She wakes up frequently at night but notes some improvement in sleep disturbances, which have decreased according to data on her phone. She believes the CPAP is helping and mentions using a small nose mask that is more comfortable than the one she had in the hospital. She has been taking an herbal sleep aid, Aldaril, and melatonin to help her sleep but forgot to take them last night, resulting in poor sleep. Mohini is experiencing high stress levels due to her 's dementia. She describes symptoms of ambiguous grief and expresses interest in talking to a counselor. Her exhibits behaviors such as hovering and perseverating, which she finds challenging. She notes that he appears stable at the moment but has shown some deterioration over time. She has taken steps to resign his guardianship due to his condition. Mohini has a family history of strokes on both sides, with her mother reportedly having dementia due to multiple mini-bleeds in the brain. She inquires about the necessity of continuing Eliquis and mentions having one refill left. She also expresses concern about the potential for future kidney stones and the associated bleeding risk while on Eliquis. She had a previous episode in 2016 where she experienced bleeding for 2-3 days due to kidney stones. SOCIAL HISTORY[1] Past medical history, appointments, medications, allergies reviewed. Pertinent Lab/Diagnostic Studies are reviewed and discussed today Current Outpatient Medications: CPAP/BIPAP/OTHER CPAP/BIPAP/OTHER apixaban (ELIQUIS) 5 mg tab(s) CPAP/BIPAP/OTHER multivitamin tablet rosuvastatin (CRESTOR) 10 mg tablet SUMAtriptan (IMITREX) 20 mg/actuation nasal spray levothyroxine (SYNTHROID) 50 mcg tablet acebutolol (SECTRAL) 200 mg capsule albuterol HFA (VENTOLIN HFA) 90 mcg/actuation inhaler azelastine 0.1% nasal spray niacin (NIACIN) 500 mg tablet lecithin 1,000 mg chew ubidecarenone Q-10 (COENZYME Q-10) 10 mg cap VIT D3-FOLIC [id number] ORAL GAMMA-AMINOBUTYRIC ACID, BULK, MISC polyethylene glycol 3350 (MIRALAX ORAL) glucosam/chond-msm1/C/castro/bor ([id number] COMPLEX ORAL) magnesium glycinate (MAG GLYCINATE ORAL) Health Maintenance Hepatitis C Screening DTaP,Tdap,Td Vaccine(1 - Tdap) Pneumococcal Vaccine: 50+(2 of 2 - PCV) Advance Directive Discussion Influenza Vaccine(1) Mammogram Screening@ Review Of Systems Constitutional: (+) insomnia Psychiatric: (+) stress Physical Exam BP 111/67 Pulse 71 Resp 16 Wt 62.5 kg (137 lb 12.8 oz) BMI 24.41 kg/m GENERAL: NAD, alert and oriented SKIN: unremarkable, no rash or skin lesions. HEAD: normocephalic EYES: PERRLA, EOMI, conjunctiva clear EARS: external ears normal, canals clear, TM's normal. LUNGS: normal breathing effort EXTREMITIES: Normal, No deformities, No skin discoloration, No edema. 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 Acute stress reaction (F43.0) High stress levels and symptoms of ambiguous grief related to caregiving responsibilities for with dementia. - Referred to psychology for short-term counseling. - Provided education on the importance of self-care and stress management. 2. Paroxysmal A-fib (HCC) (I48.0) Echocardiogram showed normal cardiac function; nuclear monitoring technician showed predominantly sinus rhythm with rare supraventricular tachycardia and ectopic beats. - Continue Eliquis; discussed risks and benefits, including lower risk of stroke vs. bleeding risk. - Discussed family history of strokes and cerebral amyloid angiopathy; advised MRI if memory issues develop. - Patient understands and agrees to continue Eliquis. 3. Sleep apnea, unspecified type (G47.30) Recently started CPAP therapy; experiencing difficulty adjusting but reports some improvement in sleep disturbances. - Encouraged continued use of CPAP and to contact the supplier for potential adjustments if difficulties persist. - Discussed use of melatonin and herbal sleep aid to assist with sleep onset. - Discussed potential use of Lexapro to reduce anxiety. 4. Calculus of ureter (N20.1) Passed a kidney stone on March 09 with associated hematuria; concerned about recurrence while on Eliquis. - Ordered CT of the flank to assess for additional stones. 5. Need for vaccination (Z23) Voice recognition software was used to compose this office note. Please excuse any unintended typographical errors. Recording using [employer] software for draft documentation of the visit was discussed with the patient/authorized customer operations representative; all questions welcomed and answered. Patient/authorized customer operations representative agreed to proceed Emma Schultz MD [1] Social History Tobacco Use Smoking status: Never Smokeless tobacco: Never Vaping Use Vaping status: Never Used Substance Use Topics Alcohol use: Yes Alcohol/week: 1.0 standard drink of alcohol Types: 1 Glasses of Wine (5oz) per week Comment: at dinner Drug use: Never documented in this encounter [facility] 03-20-2025 Instructions Emma Schultz MD - 03/20/2025 9:20 AM EDT We discussed your arrhythmia and recent cardiac testing: - Your echocardiogram results were normal, with no signs of major heart problems. Your heart's size, function, and relaxation were all within normal limits. - The nuclear monitoring technician showed mostly normal sinus rhythm with occasional supraventricular tachycardia episodes. These episodes were rare, brief, and not concerning at this time. - There is no need to see your twisthand before your scheduled appointment in September. We discussed your use of the CPAP machine for sleep apnea: - It is normal to take time to adjust to the CPAP machine. You are making progress, and your sleep disturbances have already decreased on some nights. - Continue using the CPAP machine nightly. If you continue to struggle, contact the company where you purchased the machine to discuss potential adjustments to the settings. - You may continue taking melatonin and Alderyl (a natural sleep aid) to help you fall asleep while adjusting to the CPAP machine. We discussed your recent kidney stone: - You passed a kidney stone on March 09. While you experienced bleeding due to being on Eliquis, the bleeding stopped on its own and is not concerning at this time. - To assess for any remaining kidney stones, I have ordered a CT scan of your kidneys. Please schedule this test at your earliest convenience. We discussed your use of Eliquis for paroxysmal atrial fibrillation: - You will need to remain on Eliquis long-term to reduce your risk of stroke, especially as you approach age 75. The benefits of staying on Eliquis outweigh the risks of bleeding. - If you experience significant bleeding or other concerns, please let me know immediately. - You have one refill left on your current prescription. If you need a long-term supply, consider transitioning to the [facility] mail-in service. We discussed your emotional health and caregiving stress: - You are experiencing symptoms of ambiguous grief and acute stress related to caregiving for your . This is a normal but challenging process. - I have placed a referral for short-term counseling through behavioral health resources. Please follow up with them to schedule an appointment. - Counseling can provide a safe space to process your emotions and develop coping strategies to manage stress and caregiving challenges. Next steps: - Schedule a CT scan of your kidneys to check for any remaining stones. - Continue using your CPAP machine nightly and contact the company for adjustments if needed. - Follow up with behavioral health resources for counseling. - Continue taking Eliquis as prescribed and refill your prescription as needed. - Let me know if you experience any new or worsening symptoms, including significant bleeding, changes in memory, or concerns with your health. documented in this encounter [facility] 03-11-2025 Telephone encounter Note Called Pt and she said the the [facility] in [place] said they would send and Rx to [facility]. She states she hasn't heard back for either yet. I let her know to give us a call back if she needed anything else. Wilma Garcia RN [facility] 03-11-2025 Miscellaneous Notes Called Pt and she said the the [facility] in [place] said they would send and Rx to [facility]. She states she hasn't heard back for either yet. I let her know to give us a call back if she needed anything else. Wilma Garcia RN Pt called in and reports her insurance denied her getting a CPAP. She states she called around and was able to find one she could afford at [facility]. She reports she needs a Rx for the CPAP. Pt had her study done at [facility] in [place]. I didn't know if they would send in the CPAP order of if Dr Schultz would. I told her it wouldn't hurt to call over there to check as well. I let her know I would send a message through to provider also. Please call and advise. Wilma Garcia RN documented in this encounter [facility] 03-07-2025 Telephone encounter Note Pt called in and reports her insurance denied her getting a CPAP. She states she called around and was able to find one she could afford at [facility]. She reports she needs a Rx for the CPAP. Pt had her study done at [facility] in [place]. I didn't know if they would send in the CPAP order of if Dr Schultz would. I told her it wouldn't hurt to call over there to check as well. I let her know I would send a message through to provider also. Please call and advise. Wilma Garcia RN [facility] 02-25-2025 Telephone encounter Note Patient stated last Tuesday she had an afib incident that lasted all night. Her pcp told her this was due to her not having a cpap and she states her pcp re-submitted it with an afib diagnosis. She asked if this would work? [facility] 02-25-2025 Miscellaneous Notes Patient stated last Tuesday she had an afib incident that lasted all night. Her pcp told her this was due to her not having a cpap and she states her pcp re-submitted it with an afib diagnosis. She asked if this would work? Please update patient that insurance is denying. We are trying to see if we can do an appeal, but so far no luck. If she wants to do the CPAP, may need to pay out of pocket. Called and spoke to Rex [facility]. He stated there is no denial but Medicare has their guidelines and patient does not qualify. I asked who could be contacted to discuss and he stated oh gosh I don't know. He then looked at Medicare website and does not see anything about who to contact to discuss. Redetermination request form is online. He did say he would look into this further on who to contact or what can be done and if he finds something he will call back. Can we see if I can do a peer to peer for this patient Rex from [facility] calling in and states they received another order for a CPAP machine but pt does not qualify. Her total AHI is 4.5 and it has to be at least 5-15 to get CPAP machine covered. And with those numbers, they would need a secondary diagnosis such as Afib, HTN, or extreme daytime sleepiness. Notified Rex that pt was recently dx with Afib. He said her total AHI is still only 4.5 which is the problem. If AHI was 16 or higher, then she would definitely qualify for a machine. Her total AHI has to be 5.0 or above. He states this is the guidelines for straight Medicare to get CPAP covered. Yamilka Wilde APRN saw pt on 01/16/25 and had the following information in her note: Average AHI was 4.5. In REM sleep and supine her AHI was 16. PSG also documented moderate to severe snoring. Insurance did approve a titration study which she completed and documented need for CPAP +10 cm H2O. However, her insurance is refusing to cover the CPAP, now. Unsure why. 2. SAIMA (obstructive sleep apnea) - ICD9: 327.23, ICD10: G47.33 Patient with mild SAIMA, AHI 4.5. In rem and supine, AHI 16 Patient s/s of SAIMA -- would benefit from CPAP trial. - INTERMITTT ASSIST ANASTACIO [facility] CPAP - CONSULT ENT And in instructions to pt, Yamilka documented the following: I am sending orders to [facility] for the CPAP. We may need to do a peer to peer to try to get a trial approved. If you don't hear anything within 2 weeks about the CPAP, get a message to use so we can follow up. documented in this encounter [facility] 02-25-2025 Telephone encounter Note Please update patient that insurance is denying. We are trying to see if we can do an appeal, but so far no luck. If she wants to do the CPAP, may need to pay out of pocket. [facility] 02-25-2025 Telephone encounter Note Called and spoke to Rex [facility]. He stated there is no denial but Medicare has their guidelines and patient does not qualify. I asked who could be contacted to discuss and he stated oh gosh I don't know. He then looked at Medicare website and does not see anything about who to contact to discuss. Redetermination request form is online. He did say he would look into this further on who to contact or what can be done and if he finds something he will call back. [facility] 02-25-2025 Telephone encounter Note Can we see if I can do a peer to peer for this patient [facility] 02-19-2025 Telephone encounter Note Rex from [facility] calling in and states they received another order for a CPAP machine but pt does not qualify. Her total AHI is 4.5 and it has to be at least 5-15 to get CPAP machine covered. And with those numbers, they would need a secondary diagnosis such as Afib, HTN, or extreme daytime sleepiness. Notified Rex that pt was recently dx with Afib. He said her total AHI is still only 4.5 which is the problem. If AHI was 16 or higher, then she would definitely qualify for a machine. Her total AHI has to be 5.0 or above. He states this is the guidelines for straight Medicare to get CPAP covered. Yamilka Wilde APRN saw pt on 01/16/25 and had the following information in her note: Average AHI was 4.5. In REM sleep and supine her AHI was 16. PSG also documented moderate to severe snoring. Insurance did approve a titration study which she completed and documented need for CPAP +10 cm H2O. However, her insurance is refusing to cover the CPAP, now. Unsure why. 2. SAIMA (obstructive sleep apnea) - ICD9: 327.23, ICD10: G47.33 Patient with mild SAIMA, AHI 4.5. In rem and supine, AHI 16 Patient s/s of SAIMA -- would benefit from CPAP trial. - INTERMITTT ASSIST ANASTACIO [facility] CPAP - CONSULT ENT And in instructions to pt, Yamilka documented the following: I am sending orders to [facility] for the CPAP. We may need to do a peer to peer to try to get a trial approved. If you don't hear anything within 2 weeks about the CPAP, get a message to use so we can follow up. [facility] 02-18-2025 Telephone encounter Note Patient notified that order sent. [facility] 02-18-2025 Miscellaneous Notes Patient notified that order sent. patient is calling in due to she saw Jessica on Tuesday and was to have an order for her CPAP sent to [facility] in [place]. Patient called them this morning to check the status and was informed there was no order sent to them for this. Please review and advise on in order was sent, and notify patient with update. documented in this encounter [facility] 02-18-2025 Telephone encounter Note patient is calling in due to she saw Jessica on Tuesday and was to have an order for her CPAP sent to [facility] in [place]. Patient called them this morning to check the status and was informed there was no order sent to them for this. Please review and advise on in order was sent, and notify patient with update. [facility] 02-15-2025 Instructions Jessica Concepcion APRN.CNP - 02/15/2025 1:34 PM EDT - Begin taking Eliquis (apixaban) to help prevent blood clots related to your AFib; follow the prescription instructions provided. - Continue your current acebutolol (Sectral), magnesium supplement, and vegetable-based calcium with vitamins D and K as before. - Complete blood tests today to check your magnesium, sodium, potassium, and thyroid levels. - Schedule a transthoracic echocardiogram (heart ultrasound) to assess your heart function. - Wear a 2-week Zio heart-monitor patch as arranged to track any future rhythm changes. - Arrange a cardiology consultation to review your heart rhythm and overall cardiac health. - If you notice another AFib episode, go to the emergency department immediately. documented in this encounter [facility] 02-15-2025 Note HNO ID: [id number] Author: JESSICA CONCEPCION APRN.CNP Service: ? Author Type: Nurse Practitioner Type: Progress Notes Filed: 02/15/2025 14:02 Note Text: CC: Patient presents with: Palpitations: This morning around 1am woke up with pounding in chest, apple watch showed afib, lasted until around 5am, fatigue, no cardiac sx currently HPI Ursula Lane is a 74 year old female who presents today for palpitations and irregular heart rhythm. Recording using Intron[employer] software for draft documentation of the visit was discussed with the patient/authorized customer operations representative; all questions welcomed and answered. Patient/authorized customer operations representative agreed to proceed Atrial Fibrillation: - Woke up at 01:00 with palpitations, described as a loud, thumping, funny feeling." - Episodes lasted until approximately 05:30, with Apple Watch readings showing AFib with heart rates in the 100s to 120s consistently a-fib - Denies previous episodes of AFib; has experienced similar palpitations in the past but not recently. - Denies associated dyspnea, chest pressure, nausea, emesis, or changes in urination. - Reports mild dizziness this morning when getting up and down outside. - No recent infections, fever, chills, cough, or wheezing. - No recent medication changes except for the addition of a vegetable-based calcium supplement with vitamin D and vitamin K. - Taking magnesium supplement; discontinued omeprazole due to kidney concerns. - Denies taking Fosamax due to concerns about Stewart's esophagus. - Denies recent missed doses of acebutolol which she takes for previous diagnosed ventricular fibrillation years ago - Recent dietary intake included a salty dish (mushroom ravioli) at dinner last night; does not typically add salt to food. - Recent activity included using a battery-powered weed eater outside for a short period due to heat. - recent illness of lyme disease she took 21 days of doxycyline for and had full relief of symptoms. Ventricular Fibrillation?: - Diagnosed in late 30s to early 40s; currently managed with acebutolol. - Initial symptoms included skipped beats during aerobics classes, leading to a stress test and initiation of medication. REVIEW OF SYSTEMS See HPI PAST MEDICAL HISTORY Diagnosis Date Disorder of thyroid Irregular heart beat Migraine, intractable Sleep apnea No past surgical history on file. ALLERGIES Boniva [Ibandronate], Fosamax [Alendronate], and Tzafons-Txn-Cqi Reductase Inhibitors MEDICATIONS CPAP/BIPAP/OTHER Type .CPAPSettings into a note to see current settings/supplies/DME information. multivitamin tablet Take 1 tablet by mouth once daily. rosuvastatin (CRESTOR) 10 mg tablet Take 1 tablet by mouth once daily. SUMAtriptan (IMITREX) 20 mg/actuation nasal spray Use 1 spray in the nose as needed. levothyroxine (SYNTHROID) 50 mcg tablet Take 1 tablet by mouth daily before breakfast. acebutolol (SECTRAL) 200 mg capsule Take 1 capsule by mouth two times a day. albuterol HFA (VENTOLIN HFA) 90 mcg/actuation inhaler Inhale 2 Puffs as instructed every 4 hours as needed for wheezing/shortness of breath. azelastine 0.1% nasal spray Use 1 [place] in each nostril two times a day. lecithin 1,000 mg chew Take 600 mg by mouth once daily. ubidecarenone Q-10 (COENZYME Q-10) 10 mg cap Take by mouth twice daily. VIT D3-FOLIC CQFI-C4-T9-B12 ORAL Take by mouth. GAMMA-AMINOBUTYRIC ACID, BULK, MISC polyethylene glycol 3350 (MIRALAX ORAL) Take by mouth once daily. glucosam/chond-msm1/C/castro/bor (BZCZNVUCELF-OXZOE-SRW COMPLEX ORAL) Take by mouth once daily. magnesium glycinate (MAG GLYCINATE ORAL) Take by mouth once daily. CPAP/BIPAP/OTHER Type .CPAPSettings into a note to see current settings/supplies/DME information. apixaban (ELIQUIS) 5 mg tab(s) Take 1 tablet by mouth two times a day. niacin (NIACIN) 500 mg tablet Take 500 mg by mouth daily with breakfast. No family history on file. SOCIAL HISTORY[1] PHYSICAL EXAM BP 100/64 (BP Site: Left Arm, BP Position: Sitting, BP Cuff Size: Regular Adult) Pulse 71 Wt 61.1 kg (134 lb 9.6 oz) SpO2 98% BMI 23.84 kg/m? General Appearance: well appearing, in no acute distress, alert Eyes: conjunctiva pink and moist, no icterus, sclera white, non-injected Neck: Thyroid normal size and symmetric without palpable nodules, Neck supple, No adenopathy Lymph nodes: No cervical lymphadenopathy, No supraclavicular lymphadenopathy, Lungs: Lungs clear to auscultation. No wheezing, rhonchi, rales. Heart: RRR without murmur, gallop, or rubs. No ectopy Health maintenance reviewed with patient: Hepatitis C Screening Never done DTaP,Tdap,Td Vaccine(1 - Tdap) due on 09/15/2005 Pneumococcal Vaccine: 50+(2 of 2 - PCV) due on 03/28/2021 Advance Directive Discussion due on 07/04/2024 Colorectal Cancer Screening due on 01/09/2029 Influenza Vaccine(1) due on 03/04/2025 Mammogram Screening due on 09/03/2025 Depress (more content not included)... [facility] 02-15-2025 History of Presen t illness Narrative CC: Patient presents with: Palpitations: This morning around 1am woke up with pounding in chest, apple watch showed afib, lasted until around 5am, fatigue, no cardiac sx currently HPI Ursula Lane is a 74 year old female who presents today for palpitations and irregular heart rhythm. Recording using Intron[employer] software for draft documentation of the visit was discussed with the patient/authorized customer operations representative; all questions welcomed and answered. Patient/authorized customer operations representative agreed to proceed Atrial Fibrillation: - Woke up at 01:00 with palpitations, described as a loud, thumping, funny feeling. - Episodes lasted until approximately 05:30, with Apple Watch readings showing AFib with heart rates in the 100s to 120s consistently a-fib - Denies previous episodes of AFib; has experienced similar palpitations in the past but not recently. - Denies associated dyspnea, chest pressure, nausea, emesis, or changes in urination. - Reports mild dizziness this morning when getting up and down outside. - No recent infections, fever, chills, cough, or wheezing. - No recent medication changes except for the addition of a vegetable-based calcium supplement with vitamin D and vitamin K. - Taking magnesium supplement; discontinued omeprazole due to kidney concerns. - Denies taking Fosamax due to concerns about Stewart's esophagus. - Denies recent missed doses of acebutolol which she takes for previous diagnosed ventricular fibrillation years ago - Recent dietary intake included a salty dish (mushroom ravioli) at dinner last night; does not typically add salt to food. - Recent activity included using a battery-powered weed eater outside for a short period due to heat. - recent illness of lyme disease she took 21 days of doxycyline for and had full relief of symptoms. Ventricular Fibrillation?: - Diagnosed in late 30s to early 40s; currently managed with acebutolol. - Initial symptoms included skipped beats during aerobics classes, leading to a stress test and initiation of medication. REVIEW OF SYSTEMS See HPI PAST MEDICAL HISTORY Diagnosis Date Disorder of thyroid Irregular heart beat Migraine, intractable Sleep apnea No past surgical history on file. ALLERGIES Boniva [Ibandronate], Fosamax [Alendronate], and Hjaeici-Bfd-Zbv Reductase Inhibitors MEDICATIONS CPAP/BIPAP/OTHER Type .CPAPSettings into a note to see current settings/supplies/DME information. multivitamin tablet Take 1 tablet by mouth once daily. rosuvastatin (CRESTOR) 10 mg tablet Take 1 tablet by mouth once daily. SUMAtriptan (IMITREX) 20 mg/actuation nasal spray Use 1 spray in the nose as needed. levothyroxine (SYNTHROID) 50 mcg tablet Take 1 tablet by mouth daily before breakfast. acebutolol (SECTRAL) 200 mg capsule Take 1 capsule by mouth two times a day. albuterol HFA (VENTOLIN HFA) 90 mcg/actuation inhaler Inhale 2 Puffs as instructed every 4 hours as needed for wheezing/shortness of breath. azelastine 0.1% nasal spray Use 1 [place] in each nostril two times a day. lecithin 1,000 mg chew Take 600 mg by mouth once daily. ubidecarenone Q-10 (COENZYME Q-10) 10 mg cap Take by mouth twice daily. VIT D3-FOLIC EKFB-V1-E9-B12 ORAL Take by mouth. GAMMA-AMINOBUTYRIC ACID, BULK, MISC polyethylene glycol 3350 (MIRALAX ORAL) Take by mouth once daily. glucosam/chond-msm1/C/castro/bor (CLRIXHXIIYT-SWFAU-GSC COMPLEX ORAL) Take by mouth once daily. magnesium glycinate (MAG GLYCINATE ORAL) Take by mouth once daily. CPAP/BIPAP/OTHER Type .CPAPSettings into a note to see current settings/supplies/DME information. apixaban (ELIQUIS) 5 mg tab(s) Take 1 tablet by mouth two times a day. niacin (NIACIN) 500 mg tablet Take 500 mg by mouth daily with breakfast. No family history on file. SOCIAL HISTORY[1] PHYSICAL EXAM BP 100/64 (BP Site: Left Arm, BP Position: Sitting, BP Cuff Size: Regular Adult) Pulse 71 Wt 61.1 kg (134 lb 9.6 oz) SpO2 98% BMI 23.84 kg/m General Appearance: well appearing, in no acute distress, alert Eyes: conjunctiva pink and moist, no icterus, sclera white, non-injected Neck: Thyroid normal size and symmetric without palpable nodules, Neck supple, No adenopathy Lymph nodes: No cervical lymphadenopathy, No supraclavicular lymphadenopathy, Lungs: Lungs clear to auscultation. No wheezing, rhonchi, rales. Heart: RRR without murmur, gallop, or rubs. No ectopy Health maintenance reviewed with patient: Hepatitis C Screening Never done DTaP,Tdap,Td Vaccine(1 - Tdap) due on 09/15/2005 Pneumococcal Vaccine: 50+(2 of 2 - PCV) due on 03/28/2021 Advance Directive Discussion due on 07/04/2024 Colorectal Cancer Screening due on 01/09/2029 Influenza Vaccine(1) due on 03/04/2025 Mammogram Screening due on 09/03/2025 Depression Screening due on 10/26/2025 Anxiety Screening due on 10/26/2025 Medicare Annual Wellness Visit due on 10/26/2025 Serum Creatinine due on 11/22/2025 Annual PCP Team Chronic Disease Visit due on 02/15/2026 Bone Density Screening due on 12/07/2026 Diabetes Screening due on 11/23/2027 Lipid Screening due on 10/15/2029 RSV Vaccine Completed Shingrix Vaccine Completed DATA REVIEWED: No new labs Labs: - Lyme disease test: Negative x2 Tests: (Today) - EKG: Normal sinus rhythm, no abnormalities - Apple Watch ECG: Atrial fibrillation recorded for approximately 4 hours with rates 100-120 bpm - Stress test: Performed in the past for palpitations; no specific results provided Assessment/Plan 1. New onset a-fib (HCC) (I48.91) 2. Irregular heart rhythm (I49.9) 3. Palpitations (R00.2) - New onset atrial fibrillation documented by Apple Watch recordings (HR 100-120s) for approximately 4.5 hours overnight; currently in sinus rhythm on EKG. - Start Eliquis to reduce risk of thromboembolism. - chadsvasc risk score of 2 - Order Zio patch for 2-week ambulatory cardiac monitoring. - Order echocardiogram. - Order labs: magnesium, sodium, potassium, thyroid function. - Refer to cardiology. - Advised patient to seek emergency care if similar episodes recur. - Educated on AFib risks, rationale for anticoagulation, and importance of prompt evaluation for recurrent episodes. 4. Obstructive sleep apnea (adult) (pediatric) (G47.33) - SAIMA with untreated sleep apnea due to insurance denial of CPAP; discussed increased risk of AFib with untreated SAIMA. - Will resubmit request for CPAP as the new onset of a-fib may be related to the untreated SAIMA and CPAP therapy is indicated 5. Hypothyroidism, unspecified type (E03.9) With the new onset a-fib will check TSH Prescription instructions reviewed with patient as applicable. Potential red flag symptoms discussed with the patient. Reviewed appropriate action plan to take if red flag symptoms occur. Patient agreeable to treatment plan. Jessica Concepcion APRN.CNP [1] Social History Tobacco Use Smoking status: Never Smokeless tobacco: Never Vaping Use Vaping status: Never Used Substance Use Topics Alcohol use: Yes Alcohol/week: 1.0 standard drink of alcohol Types: 1 Glasses of Wine (5oz) per week Comment: at dinner Drug use: Never documented in this encounter [facility] 02-15-2025 Note HNO ID: [id number] Author: TERI GRIFFIN MD Service: ? Author Type: Physician Type: Procedures Filed: 03/17/2025 09:28 Note Text: Patient Name: Ursula Lane : 1950 Ordering Provider: JESSICA CONCEPCION Indication: I48.91 Unspecified atrial fibrillation Type of Monitor: Extended Monitoring-Zio Patch Enrollment Dates: 02/15/2025-03/01/2025 IRHYTHM FINDINGS: Patient had a min HR of 49 bpm, max HR of 138 bpm, and avg HR of 68 bpm. Predominant underlying rhythm was Sinus Rhythm. 6 Supraventricular Tachycardia runs occurred, the run with the fastest interval lasting 5 beats with a max rate of 138 bpm, the longest lasting 18.2 secs with an avg rate of 104 bpm. Isolated SVEs were rare (<1.0%), SVE Couplets were rare (<1.0%), and SVE Triplets were rare (<1.0%). Isolated VEs were rare (<1.0%), and no VE Couplets or VE Triplets were present. Ventricular Bigeminy and Trigeminy were present. [facility] 01-30-2025 Telephone encounter Note Pt called in and reports she picked up the Fosamax and was reading the insert on it. 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 She states that this medication can cause higher risk of cancer too. Pt states she is not going to take the medication and wanted to let the provider know. Wilma Garcia RN [facility] 01-30-2025 Miscellaneous Notes Pt called in and reports she picked up the Fosamax and was reading the insert on it. 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 She states that this medication can cause higher risk of cancer too. Pt states she is not going to take the medication and wanted to let the provider know. Wilma Garcia RN documented in this encounter [facility] 01-28-2025 Note HNO ID: [id number] Author: EMMA SCHULTZ MD Service: ? Author Type: Physician Type: Progress Notes Filed: 01/28/2025 16:53 Note Text: Reason for Visit Follow up HPI Mohini Lane is a 74-year-old female with a history of Lyme disease, CKD, and osteoporosis, presenting with persistent fatigue, mid-back pain, and concerns about osteoporosis management. Mohini reports persistent fatigue following a recent diagnosis of Lyme disease. She completed a 14-day course of doxycycline and was subsequently prescribed an additional 7-day course by her sleep specialist due to unilateral tonsillar pain and lymphadenopathy. While she experienced temporary improvement, the fatigue has recurred. She is uncertain if the fatigue is attributable to Lyme disease or her sleep apnea. She is awaiting a CPAP machine, with the order placed on the 16th, but has not received it yet. She also reports a constant, dull pain in her mid-back, which she attributes to her kidneys. She notes a recent increase in her creatinine levels from 54 to 60 over the past 2-3 months. She has observed an increase in her blood pressure, which was previously well-controlled at approximately 100/60 mmHg with acebutolol, but has recently risen to 122/80 mmHg. Additionally, she expresses concerns about osteoporosis management. She has previously tried Fosamax and Boniva, both of which she did not tolerate well. She experienced significant adverse effects with Boniva, including severe malaise that lasted for 2 weeks, followed by a gradual improvement over the next 2 weeks. She is apprehensive about starting Prolia due to potential side effects and the long-term commitment required. She inquires about the possibility of retrying Fosamax. Social History Tobacco Use Smoking status: Never Smokeless tobacco: Never Vaping Use Vaping status: Never Used Substance Use Topics Alcohol use: Yes Alcohol/week: 1.0 standard drink of alcohol Types: 1 Glasses of Wine (5oz) per week Comment: at dinner Drug use: Never Past medical history, appointments, medications, allergies reviewed. Pertinent Lab/Diagnostic Studies are reviewed and discussed today Current Outpatient Medications: alendronate (FOSAMAX) 70 mg tablet CPAP/BIPAP/OTHER multivitamin tablet rosuvastatin (CRESTOR) 10 mg tablet SUMAtriptan (IMITREX) 20 mg/actuation nasal spray omeprazole (PRILOSEC) 20 mg capsule levothyroxine (SYNTHROID) 50 mcg tablet acebutolol (SECTRAL) 200 mg capsule albuterol HFA (VENTOLIN HFA) 90 mcg/actuation inhaler azelastine 0.1% nasal spray niacin (NIACIN) 500 mg tablet lecithin 1,000 mg chew ubidecarenone Q-10 (COENZYME Q-10) 10 mg cap VIT D3-FOLIC [id number]-B12 ORAL GAMMA-AMINOBUTYRIC ACID, BULK, MISC polyethylene glycol 3350 (MIRALAX ORAL) glucosam/chond-msm1/C/castro/bor ([id number]-PJDHD-OUU COMPLEX ORAL) magnesium glycinate (MAG GLYCINATE ORAL) Health Maintenance Hepatitis C Screening DTaP,Tdap,Td Vaccine(1 - Tdap) Pneumococcal Vaccine: 50+(2 of 2 - PCV) Advance Directive Discussion@ Review Of Systems Constitutional: (+) fatigue Musculoskeletal: (+) mid-back pain Physical Exam BP 122/80 Pulse 60 Wt 60.8 kg (134 lb) SpO2 98% BMI 23.74 kg/m? GENERAL: NAD, alert and oriented. SKIN: Unremarkable, no rash or skin lesions. HEAD: Normocephalic. EYES: PERRLA, EOMI, conjunctiva clear. LUNGS: Clear to auscultation bilaterally, no wheezes/rhonchi/rales. HEART: Regular rate and rhythm, no murmurs. No ectopy. EXTREMITIES: Normal, no deformities, no skin discoloration, no edema. NEURO: Awake, alert and oriented x3, cranial nerves II-XII grossly intact, normal gait, no involuntary motions. Labs: (2 months ago) Renal function: - GFR: 60 mL/min (3 months ago) Renal function: - GFR: 54 mL/min No date - BTH: Normal - Vitamin D: Normal - Vitamin B12: Normal Imaging: No date - DEXA scan: T-score -3.6 at the lowest disc, consistent with osteoporosis Assessment and Plan 1. Tick bite of lower back, initial encounter (S30.860A) Completed 14-day course of doxycycline followed by an additional 7-day course due to persistent symptoms. Symptoms improved temporarily but fatigue has returned. - Ordered Lyme IgG antibody test to confirm seroconversion. 2. Obstructive sleep apnea (adult) (pediatric) (G47.33) Awaiting CPAP machine from [facility] in [place]; patient has not received confirmation of approval or delivery. - Advised patient to follow up with [facility] regarding CPAP machine delivery. 3. Essential (primary) hypertension (I10) Blood pressure readings have increased from baseline of 100/60 mmHg to 122/80 mmHg. Patient has been on acebutolol for approximately 40 years. - Continue monitoring blood pressure. 4. Age-related osteoporosis without current pathological fracture (M81.0) Severe osteoporosis with a T-score of -3.6. Previous intolerance to Fosamax and Boniva, with sig (more content not included)... [facility] 01-28-2025 History of Presen t illness Narrative Reason for Visit Follow up HPI Mohini Lane is a 74-year-old female with a history of Lyme disease, CKD, and osteoporosis, presenting with persistent fatigue, mid-back pain, and concerns about osteoporosis management. Pat reports persistent fatigue following a recent diagnosis of Lyme disease. She completed a 14-day course of doxycycline and was subsequently prescribed an additional 7-day course by her sleep specialist due to unilateral tonsillar pain and lymphadenopathy. While she experienced temporary improvement, the fatigue has recurred. She is uncertain if the fatigue is attributable to Lyme disease or her sleep apnea. She is awaiting a CPAP machine, with the order placed on the 16th, but has not received it yet. She also reports a constant, dull pain in her mid-back, which she attributes to her kidneys. She notes a recent increase in her creatinine levels from 54 to 60 over the past 2-3 months. She has observed an increase in her blood pressure, which was previously well-controlled at approximately 100/60 mmHg with acebutolol, but has recently risen to 122/80 mmHg. Additionally, she expresses concerns about osteoporosis management. She has previously tried Fosamax and Boniva, both of which she did not tolerate well. She experienced significant adverse effects with Boniva, including severe malaise that lasted for 2 weeks, followed by a gradual improvement over the next 2 weeks. She is apprehensive about starting Prolia due to potential side effects and the long-term commitment required. She inquires about the possibility of retrying Fosamax. Social History Tobacco Use Smoking status: Never Smokeless tobacco: Never Vaping Use Vaping status: Never Used Substance Use Topics Alcohol use: Yes Alcohol/week: 1.0 standard drink of alcohol Types: 1 Glasses of Wine (5oz) per week Comment: at dinner Drug use: Never Past medical history, appointments, medications, allergies reviewed. Pertinent Lab/Diagnostic Studies are reviewed and discussed today Current Outpatient Medications: alendronate (FOSAMAX) 70 mg tablet CPAP/BIPAP/OTHER multivitamin tablet rosuvastatin (CRESTOR) 10 mg tablet SUMAtriptan (IMITREX) 20 mg/actuation nasal spray omeprazole (PRILOSEC) 20 mg capsule levothyroxine (SYNTHROID) 50 mcg tablet acebutolol (SECTRAL) 200 mg capsule albuterol HFA (VENTOLIN HFA) 90 mcg/actuation inhaler azelastine 0.1% nasal spray niacin (NIACIN) 500 mg tablet lecithin 1,000 mg chew ubidecarenone Q-10 (COENZYME Q-10) 10 mg cap VIT D3-FOLIC [id number] ORAL GAMMA-AMINOBUTYRIC ACID, BULK, MISC polyethylene glycol 3350 (MIRALAX ORAL) glucosam/chond-msm1/C/castro/bor ([id number]-[id number]-SDO COMPLEX ORAL) magnesium glycinate (MAG GLYCINATE ORAL) Health Maintenance Hepatitis C Screening DTaP,Tdap,Td Vaccine(1 - Tdap) Pneumococcal Vaccine: 50+(2 of 2 - PCV) Advance Directive Discussion@ Review Of Systems Constitutional: (+) fatigue Musculoskeletal: (+) mid-back pain Physical Exam BP 122/80 Pulse 60 Wt 60.8 kg (134 lb) SpO2 98% BMI 23.74 kg/m GENERAL: NAD, alert and oriented. SKIN: Unremarkable, no rash or skin lesions. HEAD: Normocephalic. EYES: PERRLA, EOMI, conjunctiva clear. LUNGS: Clear to auscultation bilaterally, no wheezes/rhonchi/rales. HEART: Regular rate and rhythm, no murmurs. No ectopy. EXTREMITIES: Normal, no deformities, no skin discoloration, no edema. NEURO: Awake, alert and oriented x3, cranial nerves II-XII grossly intact, normal gait, no involuntary motions. Labs: (2 months ago) Renal function: - GFR: 60 mL/min (3 months ago) Renal function: - GFR: 54 mL/min No date - BTH: Normal - Vitamin D: Normal - Vitamin B12: Normal Imaging: No date - DEXA scan: T-score -3.6 at the lowest disc, consistent with osteoporosis Assessment and Plan 1. Tick bite of lower back, initial encounter (S30.290A) Completed 14-day course of doxycycline followed by an additional 7-day course due to persistent symptoms. Symptoms improved temporarily but fatigue has returned. - Ordered Lyme IgG antibody test to confirm seroconversion. 2. Obstructive sleep apnea (adult) (pediatric) (G47.33) Awaiting CPAP machine from [facility] in [place]; patient has not received confirmation of approval or delivery. - Advised patient to follow up with [facility] regarding CPAP machine delivery. 3. Essential (primary) hypertension (I10) Blood pressure readings have increased from baseline of 100/60 mmHg to 122/80 mmHg. Patient has been on acebutolol for approximately 40 years. - Continue monitoring blood pressure. 4. Age-related osteoporosis without current pathological fracture (M81.0) Severe osteoporosis with a T-score of -3.6. Previous intolerance to Fosamax and Boniva, with significant adverse effects reported. - Reinitiated Fosamax once weekly with instructions to take with a full glass of water. - Educated patient on potential side effects and the importance of adherence. - Advised intake of 1,200 mg of calcium daily through diet or supplements. Voice recognition software was used to compose this office note. Please excuse any unintended typographical errors. Recording using [employer] software for draft documentation of the visit was discussed with the patient/authorized customer operations representative; all questions welcomed and answered. Patient/authorized customer operations representative agreed to proceed Emma Schultz MD documented in this encounter [facility] 01-28-2025 Instructions Emma Schultz MD - 01/28/2025 10:22 AM EDT We discussed your recent history of Lyme disease: - You completed a 14-day course of doxycycline and an additional 7-day course prescribed by another provider. While you initially felt better, your fatigue has returned. - I have ordered a Lyme antibody test (IgG and IgM) to confirm whether there has been a conversion from negative to positive, which would indicate a recent infection. You can complete this test anytime within the next three months. We discussed your sleep apnea: - You are waiting for a CPAP machine from [facility] in [place]. Please follow up with them to confirm the status of your order. - Addressing your sleep apnea may help improve your fatigue. We discussed your kidney function: - Your kidney function (GFR) has been stable around 60, with one reading of 54. This indicates chronic kidney disease, which is likely related to aging. - To protect your kidney health, it is important to maintain good blood pressure control. We discussed your blood pressure: - Your blood pressure has increased slightly but remains within an acceptable range. This is likely due to age-related changes in your blood vessels. - Continue taking acebutolol as prescribed. We discussed your osteoporosis: - Your bone density shows significant osteoporosis, with a T-score of -3.6. Treatment is recommended. - We will retry Fosamax (alendronate) once weekly. This has been sent to your pharmacy. Please take it with a full glass of water as directed. - Continue taking 1,200 mg of calcium daily, either through food or supplements. - Your vitamin D and PTH levels are normal. - If you experience side effects with Fosamax, let me know, and we can discuss alternative treatments. Please continue with regular exercise and follow up with me if you have any concerns or if your symptoms worsen. documented in this encounter [facility] 01-18-2025 Telephone encounter Note Script faxed at this time [facility] 01-18-2025 Miscellaneous Notes Script faxed at this time Patient returned call. Message from Dr. Yuan given. She would like to give the cream a try. Please send to compounding pharmacy. Called patient to provide below information. No response. Left VM. Bree Theodore LPN Images from the original note were not included. Alize Yuan to Me 01/11/25 3:40 PM I cannot explain based on emg why her foot has numbness or "buzzes". If she would like to try a pain cream, I am happy to call in to a compounding pharmacy Alize Yuan DPM Patient notified of results and provider's instructions. Patient verbalizes understanding but would like to know why her foot buzzes. Bree Theodore LPN Images from the original note were not included. Alize Yuan Amanda RN; [facility] [place]24 minutes ago (7:54 AM) Emg was normal Alize Yuan DPM EMG results scanned into chart from [facility] documented in this encounter [facility] 01-18-2025 Telephone encounter Note Patient returned call. Message from Dr. Yuan given. She would like to give the cream a try. Please send to compounding pharmacy. [facility] 01-17-2025 Telephone encounter Note Called patient to provide below information. No response. Left VM. Bree Theodore LPN [facility] Work Phone: 01-17-2025 Telephone encounter Note Images from the original note were not included. Alize Yuan to Me 01/11/25 3:40 PM I cannot explain based on emg why her foot has numbness or "buzzes". If she would like to try a pain cream, I am happy to call in to a compounding pharmacy Alize Yuan DPM [facility] 01-17-2025 Telephone encounter Note I dont think that is the way this Is treated. I am sorry. RegardsEmma MD [facility] 01-17-2025 Miscellaneous Notes I dont think that is the way this Is treated. I am sorry. Emma Valenzuela MD Patient calls and states that she was in office for tick bite. Patient reports that she finished her antibiotics. Patient states that she continues to feel fatigued and her joints continue to ache. Patient is asking about another round of antibiotic. Please review and advise, Yamilka Stringer RN documented in this encounter [facility] 01-16-2025 Telephone encounter Note Faxed orders, last office visit, demographics and any testing related to the order(s) to [facility] in [place]. Teja Brice MA [facility] 01-16-2025 Miscellaneous Notes Faxed orders, last office visit, demographics and any testing related to the order(s) to [facility] in [place]. Teja Brice MA documented in this encounter [facility] 01-16-2025 Telephone encounter Note Faxed referral, demographics, last office visit and any related testing to ENT- Dr. Tillman. Teja Brice MA [facility] 01-16-2025 Miscellaneous Notes Faxed referral, demographics, last office visit and any related testing to ENT- Dr. Tillman. Teja Brice MA documented in this encounter [facility] 01-16-2025 Note HNO ID: [id number] Author: YAMILKA WILDE APRN.RONALD Service: ? Author Type: Nurse Practitioner Type: Progress Notes Filed: 01/16/2025 09:34 Note Text: [facility] Department of Pulmonary AND Sleep Medicine Yamilka Wilde APRN.AUTO SERVICE WRITER Consult Note REFERRING PROVIDER: Emma Schultz MD Ursula Lane is a 74 year old female who is here for evaluation of SAIMA and snoring. History of Illness Since Last Visit: Patient was referred for treatment of SAIMA. Her primary care physician completed a sleep study which documented mild SAIMA which became more moderate in supine and REM sleep. Average AHI was 4.5. In REM sleep and supine her AHI was 16. PSG also documented moderate to severe snoring. Insurance did approve a titration study which she completed and documented need for CPAP +10 cm H2O. However, her insurance is refusing to cover the CPAP, now. Unsure why. She continues to report a history of snoring, denies any history of witnessed apneas. She does complain of restless and disturbed sleep. She states she typically wakes 2-3 times per night at least. She often wakes in the morning feeling nonrefreshed and overall fatigue. She does complain of excessive daytime sleepiness. She denies any history of sleepwalking, but does complain of history of restless leg and leg movements at night. She denies any history of tobacco use. 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 She denies any prior history of COPD or asthma. Reviewed sleep hygiene, no concerns identified. Normal bedtime 10:30p - 6:30a. However, she states she just has trouble getting out of bed and getting moving in the morning. To further complicate care she was recently diagnosed with Lyme's disease and treated with doxycycline x 14 days. She remains symptomatic despite treatment. HISTORY PAST MEDICAL HISTORY Diagnosis Date Disorder of thyroid Irregular heart beat Migraine, intractable Sleep apnea History reviewed. No pertinent surgical history. Social History Tobacco Use Smoking status: Never Smokeless tobacco: Never Vaping Use Vaping status: Never Used Substance Use Topics Alcohol use: Yes Alcohol/week: 1.0 standard drink of alcohol Types: 1 Glasses of Wine (5oz) per week Comment: at dinner Drug use: Never ALLERGIES: ALLERGIES Allergen Reactions Boniva [Ibandronate] Other: See Comments Was so down and out for 4 weeks she does not want the medication Fosamax [Alendronat* Other: See Comments She was down for a month after taking them . Just did not tolerate them at all Gdxwtyl-Gxl-Kaw Red* Myalgia Restless legs. MEDICATIONS: Current Outpatient Medications Medication Sig CPAP/BIPAP/OTHER Type .CPAPSettings into a note to see current settings/supplies/DME information. multivitamin tablet Take 1 tablet by mouth once daily. rosuvastatin (CRESTOR) 10 mg tablet Take 1 tablet by mouth once daily. SUMAtriptan (IMITREX) 20 mg/actuation nasal spray Use 1 spray in the nose as needed. omeprazole (PRILOSEC) 20 mg capsule Take 1 capsule by mouth every 12 hours. levothyroxine (SYNTHROID) 50 mcg tablet Take 1 tablet by mouth daily before breakfast. acebutolol (SECTRAL) 200 mg capsule Take 1 capsule by mouth two times a day. albuterol HFA (VENTOLIN HFA) 90 mcg/actuation inhaler Inhale 2 Puffs as instructed every 4 hours as needed for wheezing/shortness of breath. azelastine 0.1% nasal spray Use 1 [place] in each nostril two times a day. niacin (NIACIN) 500 mg tablet Take 500 mg by mouth daily with breakfast. lecithin 1,000 mg chew Take 600 mg by mouth once daily. ubidecarenone Q-10 (COENZYME Q-10) 10 mg cap Take by mouth twice daily. VIT D3-FOLIC IHEW-R7-T3-B12 ORAL Take by mouth. GAMMA-AMINOBUTYRIC ACID, BULK, MISC polyethylene glycol 3350 (MIRALAX ORAL) Take by mouth once daily. glucosam/chond-msm1/C/castro/bor (SZRDLXVUXKJ-JGHXN-IRT COMPLEX ORAL) Take by mouth once daily. magnesium glycinate (MAG GLYCINATE ORAL) Take by mouth once daily. doxycycline (VIBRA-TABS) 100 mg tablet Take 1 tablet by mouth two times a day for 7 days. No current facility-administered medications for this visit. IMMUNIZATIONS: Immunization History Administered Date(s) Administered COVID-19 original vaccine, full dose, monovalent (MODERNA) 08/14/2020 09/11/2020 05/03/2021 11/10/2021 COVID-19 vaccine, age 12+ yr (MODERNA) 04/07/2024 COVID-19 vaccine, age 12+ yr ([employer] COMIRNATY) 03/29/2023 COVID-19 vaccine, age 12+ yr, bivalent (MODERNA) 03/30/2022 hepatitis A (HepA) vaccine, unspecified formulation 09/14/2005 04/19/2006 influenza (HD-IIV3) vaccine, age 65+ yr, high dose, trivalent, PF (FLUZONE HIGH-DOSE) 03/30/2022 influenza (HD-IIV4) vaccine, age 65+ yr, high dose, quadrivalent, PF (FLUZONE HIGH-DOSE) 04/01/202103/05 (more content not included)... [facility] 01-16-2025 History of Presen t illness Narrative [facility] Department of Pulmonary & Sleep Medicine Yamilka Wilde APRN.AUTO SERVICE WRITER Consult Note REFERRING PROVIDER: Emma Schultz MD Ursula Lane is a 74 year old female who is here for evaluation of SAIMA and snoring. History of Illness Since Last Visit: Patient was referred for treatment of SAIMA. Her primary care physician completed a sleep study which documented mild SAIMA which became more moderate in supine and REM sleep. Average AHI was 4.5. In REM sleep and supine her AHI was 16. PSG also documented moderate to severe snoring. Insurance did approve a titration study which she completed and documented need for CPAP +10 cm H2O. However, her insurance is refusing to cover the CPAP, now. Unsure why. She continues to report a history of snoring, denies any history of witnessed apneas. She does complain of restless and disturbed sleep. She states she typically wakes 2-3 times per night at least. She often wakes in the morning feeling nonrefreshed and overall fatigue. She does complain of excessive daytime sleepiness. She denies any history of sleepwalking, but does complain of history of restless leg and leg movements at night. She denies any history of tobacco use. 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 She denies any prior history of COPD or asthma. Reviewed sleep hygiene, no concerns identified. Normal bedtime 10:30p - 6:30a. However, she states she just has trouble getting out of bed and getting moving in the morning. To further complicate care she was recently diagnosed with Lyme's disease and treated with doxycycline x 14 days. She remains symptomatic despite treatment. HISTORY PAST MEDICAL HISTORY Diagnosis Date Disorder of thyroid Irregular heart beat Migraine, intractable Sleep apnea History reviewed. No pertinent surgical history. Social History Tobacco Use Smoking status: Never Smokeless tobacco: Never Vaping Use Vaping status: Never Used Substance Use Topics Alcohol use: Yes Alcohol/week: 1.0 standard drink of alcohol Types: 1 Glasses of Wine (5oz) per week Comment: at dinner Drug use: Never ALLERGIES: ALLERGIES Allergen Reactions Boniva [Ibandronate] Other: See Comments Was so down and out for 4 weeks she does not want the medication Fosamax [Alendronat* Other: See Comments She was down for a month after taking them . Just did not tolerate them at all Locxmrz-Qrb-Ehs Red* Myalgia Restless legs. MEDICATIONS: Current Outpatient Medications Medication Sig CPAP/BIPAP/OTHER Type .CPAPSettings into a note to see current settings/supplies/DME information. multivitamin tablet Take 1 tablet by mouth once daily. rosuvastatin (CRESTOR) 10 mg tablet Take 1 tablet by mouth once daily. SUMAtriptan (IMITREX) 20 mg/actuation nasal spray Use 1 spray in the nose as needed. omeprazole (PRILOSEC) 20 mg capsule Take 1 capsule by mouth every 12 hours. levothyroxine (SYNTHROID) 50 mcg tablet Take 1 tablet by mouth daily before breakfast. acebutolol (SECTRAL) 200 mg capsule Take 1 capsule by mouth two times a day. albuterol HFA (VENTOLIN HFA) 90 mcg/actuation inhaler Inhale 2 Puffs as instructed every 4 hours as needed for wheezing/shortness of breath. azelastine 0.1% nasal spray Use 1 [place] in each nostril two times a day. niacin (NIACIN) 500 mg tablet Take 500 mg by mouth daily with breakfast. lecithin 1,000 mg chew Take 600 mg by mouth once daily. ubidecarenone Q-10 (COENZYME Q-10) 10 mg cap Take by mouth twice daily. VIT D3-FOLIC BIQF-T0-D2-B12 ORAL Take by mouth. GAMMA-AMINOBUTYRIC ACID, BULK, MISC polyethylene glycol 3350 (MIRALAX ORAL) Take by mouth once daily. glucosam/chond-msm1/C/castro/bor (BFQIPIHQPKU-XWCCE-ERR COMPLEX ORAL) Take by mouth once daily. magnesium glycinate (MAG GLYCINATE ORAL) Take by mouth once daily. doxycycline (VIBRA-TABS) 100 mg tablet Take 1 tablet by mouth two times a day for 7 days. No current facility-administered medications for this visit. IMMUNIZATIONS: Immunization History Administered Date(s) Administered COVID-19 original vaccine, full dose, monovalent (MODERNA) 08/14/2020 09/11/2020 05/03/2021 11/10/2021 COVID-19 vaccine, age 12+ yr (MODERNA) 04/07/2024 COVID-19 vaccine, age 12+ yr ([employer] COMIRNAT) 03/29/2023 COVID-19 vaccine, age 12+ yr, bivalent (MODERNA) 03/30/2022 hepatitis A (HepA) vaccine, unspecified formulation 09/14/2005 04/19/2006 influenza (HD-IIV3) vaccine, age 65+ yr, high dose, trivalent, PF (FLUZONE HIGH-DOSE) 03/30/2022 influenza (HD-IIV4) vaccine, age 65+ yr, high dose, quadrivalent, PF (FLUZONE HIGH-DOSE) 04/01/2021 03/30/2022 influenza (IIV3) vaccine, trivalent (AFLURIA, FLULAVAL, FLUVIRIN, FLUZONE) 04/18/2008 04/10/2009 influenza (IIV4) vaccine, age 6 mo - 64 yr, quadrivalent, PF (AFLURIA, FLUARIX, FLULAVAL, FLUZONE) 03/29/2018 03/26/2019 03/28/2020 influenza (aIIV4) vaccine, age 65+ yr, quadrivalent, PF (FLUAD QUAD) 03/29/2023 pneumococcal polysaccharide (PPV23) vaccine, 23 valent (PNEUMOVAX 23) 03/28/2020 respiratory syncytial virus (RSV) vaccine, bivalent (ABRYSVO) 05/05/2023 tetanus diphtheria (Td) vaccine, adult, unspecified formulation 09/14/2005 varicella zoster immune globulin (VZIG) (VARIZIG) 10/05/2012 zoster (RZV) vaccine, recombinant (SHINGRIX) 10/15/2022 12/17/2022 REVIEW OF SYSTEMS Review of Systems Constitutional: Positive for fatigue (daytime sleepiness). Negative for chills, diaphoresis, fever and unexpected weight change. HENT: Negative for congestion, dental problem, ear pain, postnasal drip, rhinorrhea, sinus pressure, sinus pain, sore throat and trouble swallowing. Eyes: Negative for photophobia, pain, discharge, itching and visual disturbance. Respiratory: Negative for apnea, cough, chest tightness, shortness of breath, wheezing and stridor. Cardiovascular: Negative for chest pain, palpitations and leg swelling. Gastrointestinal: Negative for abdominal distention, abdominal pain, blood in stool, constipation, diarrhea, nausea and vomiting. Endocrine: Negative for polydipsia, polyphagia and polyuria. Genitourinary: Negative for difficulty urinating, dysuria, flank pain and hematuria. Musculoskeletal: Negative for arthralgias, gait problem, joint swelling and myalgias. Skin: Negative for color change, pallor, rash and wound. Allergic/Immunologic: Negative for environmental allergies and food allergies. Neurological: Negative for dizziness, syncope, weakness, light-headedness, numbness and headaches. Hematological: Negative for adenopathy. Does not bruise/bleed easily. Psychiatric/Behavioral: Positive for sleep disturbance. Negative for agitation, behavioral problems, confusion and suicidal ideas. Vital Signs: BP 112/70 Pulse 67 Resp 16 Ht 5' 3" (1.60m) Wt 135 lb 6.4 oz (61.4kg) SpO2 98[RA]% BMI 23.99 kg/(m^2). Physical Exam Constitutional: General: She is not in acute distress. HENT: Head: Normocephalic and atraumatic. Comments: Mallampati III, corrective lenses Nose: Nose normal. No septal deviation, mucosal edema or rhinorrhea. Mouth/Throat: Mouth: No oral lesions. Dentition: Normal dentition. Does not have dentures. Pharynx: Uvula midline. No oropharyngeal exudate or posterior oropharyngeal erythema. Tonsils: No tonsillar abscesses. Eyes: Conjunctiva/sclera: Conjunctivae normal. Pupils: Pupils are equal, round, and reactive to light. Neck: Thyroid: No thyromegaly. Vascular: No JVD. Trachea: No tracheal deviation. Cardiovascular: Rate and Rhythm: Normal rate and regular rhythm. Heart sounds: Normal heart sounds. Pulmonary: Effort: Pulmonary effort is normal. No respiratory distress. Breath sounds: Normal breath sounds. No stridor. No wheezing or rales. Abdominal: General: Bowel sounds are normal. There is no distension. Palpations: Abdomen is soft. Tenderness: There is no abdominal tenderness. There is no guarding. Musculoskeletal: General: Normal range of motion. Cervical back: Normal range of motion and neck supple. Skin: General: Skin is warm and dry. Findings: No erythema or rash. Neurological: Mental Status: She is alert and oriented to person, place, and time. Gait: Gait is intact. Psychiatric: Mood and Affect: Mood and affect normal. Cognition and Memory: Memory normal. Judgment: Judgment normal. DATA REVIEW Baseline Spirometry: 01/16/25: 4 Oximetry : 98% saturated at rest on room air. Homer Sleepiness Scale: 4 ASSESSMENT/PLAN: 1. Lyme disease - ICD9: 088.81, ICD10: A69.20 (primary diagnosis) Remains symptomatic, cervical adenopathy on exam. Extend doxycycline another 7 days. - DOXYCYCLINE HYCLATE 100 MG TABLET 2. SAIMA (obstructive sleep apnea) - ICD9: 327.23, ICD10: G47.33 Patient with mild SAIMA, AHI 4.5. In rem and supine, AHI 16 Patient s/s of SAIMA -- would benefit from CPAP trial. - INTERMITTT ASSIST DEV W CPAP - CONSULT ENT 3. Snoring - ICD9: 786.09, ICD10: R06.83 Moderate/severe on PSG - CONSULT ENT 4. Gastroesophageal reflux disease without esophagitis - ICD9: 530.81, ICD10: K21.9 5. RLS (restless legs syndrome) - ICD9: 333.94, ICD10: G25.81 Yamilka Wilde (Electronically signed expedite mailing) FOLLOW UP: Return After receiving APAP. This note was generated with voice recognition software and may contain errors including spelling, grammar, and syntax and mis-recognition of what was dictated that are not fully corrected. documented in this encounter [facility] 01-16-2025 Instructions Yamilka Wilde APRN.RONALD - 01/16/2025 8:58 AM EDT I am sending orders to [place] for the CPAP. We may need to do a peer to peer to try to get a trial approved. In the meantime, we will have you follow up with ENT, Dr. Delgado, to see if there is anything they can do to help with snoring - which may help with the sleep apnea and sleep at night. If you don't hear anything within 2 weeks about the CPAP, get a message to use so we can follow up. You can try melatonin or alteril to help sleep, also. Sleep Hygiene Establish a regular routine that includes going to bed and getting up at the same time every day, even on weekends. Maintaining a consistent sleep-wake cycle is the watt to better health overall. Get an adequate amount of sleep every night. Determine the amount of sleep you need by keeping track of how long you sleep without using an alarm clock for a week. Maintain this "personal" sleep requirement. Go to bed when you are sleepy. If you have difficulty falling asleep or wake up shortly after going to sleep, leave the bedroom and read quietly or do some other relaxing activity. Avoid bright lights as this can cue your wake cycle. Develop sleep rituals before going to bed. Do the same things in the same order before going to bed to cue your body to slow down and relax. Avoid stress and worries at bedtime. Address tomorrow's activities, concerns, or distractions earlier in the day. Certain activities, such as listening to soft music, reading, or taking a warm bath, can help you wind down. Use your bed for sleeping and sex only. Often, doing other activities in bed like watching TV, paying bills, or working only serve to initiate worries and concerns. Let your mind associate the bed with sleeping, relaxing, and pleasure. Avoid heavy meals late in the evening; similarly, avoid going to bed hungry. A light snack, especially dairy foods, can help you sleep. Reduce your intake of caffeine and nicotine 4-6 hours before going to sleep. Stimulants interfere with your ability to fall asleep and progress into deep sleep. 200mg caffeine (a large Starbucks coffee) taken at 8 AM will impair the sleep architecture that night. Avoid alcohol 4-6 hours before bedtime. As a depressant that slows brain activity, alcohol may initially make you tired, but you will end up having fragmented sleep. In addition, being tired intensifies the effects of alcohol. Alcohol also aggravates snoring and sleep apnea particularly in men. Exercise regularly. Regular exercise, even for 20 minutes, 3 times a week, promotes deep sleep. Don't nap for more than 30 minutes or after 3 PM. Avoiding naps all together will ensure that you are tired at night. Longer naps disrupt the body's ability to stay asleep. Maintain a dark, quiet room to sleep in at a temperature with which you are comfortable. Use sleeping aids conservatively, and avoid using them for more than one or two nights per month. Avoid sleeping pills altogether if you have obstructive sleep apnea because it can be a deadly combination. documented in this encounter [facility] 01-11-2025 Telephone encounter Note Patient calls and states that she was in office for tick bite. Patient reports that she finished her antibiotics. Patient states that she continues to feel fatigued and her joints continue to ache. Patient is asking about another round of antibiotic. Please review and advise, Yamilka Stringer RN [facility] 01-08-2025 Telephone encounter Note Patient notified of results and provider's instructions. Patient verbalizes understanding but would like to know why her foot buzzes. Bree Theodore LPN [facility] 01-08-2025 Telephone encounter Note Images from the original note were not included. Alize Yuan Amanda, RN; [facility] Pool24 minutes ago (7:54 AM) Emg was normal Alize Yuan DPM [facility] 01-03-2025 Telephone encounter Note EMG results scanned into chart from [facility] 01-02-2025 Procedure note [facility] 12-26-2024 Telephone encounter Note Patient notified of results, verbalizes understanding of instructions. Essence Cartwright MA [facility] 12-26-2024 Miscellaneous Notes Patient notified of results, verbalizes understanding of instructions. Essence Cartwright MA I am sorry that she is having that reaction. I would continue meds , hopefully fever subsides in a few days Continue therapy , can take doxy for 4 days more to make a total of 14 days if she wants to Regards, Emma Schultz MD Per patient's My Chart encounter. I have been running a fever both last night and today. It went to a high of 102 degrees last night and up and down today from 99.4 to 100.2. What has me concerned is the two areas with the bites are getting larger and darker. Please let me know if I should be concerned or if it the medication working. Pt had appt yesterday. Pt reports she got two doses of atb yesterday. During the night fever got up to 102. Pt reports she took another dose of atb this morning. Pt reports fever is 101.3. Pt is asking if she should be concerned and how long until the atb starts to work. Tiesha Molina LPN documented in this encounter [facility] 12-26-2024 Telephone encounter Note Printed sleep medicine referral & faxed to [phone]. Essence Cartwright MA [facility] 12-26-2024 Miscellaneous Notes Printed sleep medicine referral & faxed to [phone]. Essence Cartwright MA I put the order on December 06 Please assist the patient. Regards, Emma Schultz MD Pt had an appt 12/24/24. Pt was to make a follow up appt with Dr. Kristy Tobias in [place] in regards to the sleep study he signed off on.(Done on 12/11) Pt reports when she called the office she was advised a referral needed to be faxed to them in order for pt to get an appt. Please review and advise. . Tiesha Molina LPN documented in this encounter [facility] 12-25-2024 Telephone encounter Note I am sorry that she is having that reaction. I would continue meds , hopefully fever subsides in a few days Continue therapy , can take doxy for 4 days more to make a total of 14 days if she wants to Emma Valenzuela MD [facility] 12-25-2024 Telephone encounter Note I put the order on December 06 Please assist the patient. Emma Valenzuela MD [facility] 12-25-2024 Telephone encounter Note Per patient's My Chart encounter. I have been running a fever both last night and today. It went to a high of 102 degrees last night and up and down today from 99.4 to 100.2. What has me concerned is the two areas with the bites are getting larger and darker. Please let me know if I should be concerned or if it the medication working. [facility] 12-25-2024 Telephone encounter Note See telephone encounter 12/25/24. [facility] 12-25-2024 Miscellaneous Notes See telephone encounter 12/25/24. documented in this encounter [facility] 12-25-2024 Telephone encounter Note Pt had appt yesterday. Pt reports she got two doses of atb yesterday. During the night fever got up to 102. Pt reports she took another dose of atb this morning. Pt reports fever is 101.3. Pt is asking if she should be concerned and how long until the atb starts to work. Tiesha Molina LPN T [facility] 12-25-2024 Telephone encounter Note Pt had an appt 12/24/24. Pt was to make a follow up appt with Dr. Kristy Tobias in [place] in regards to the sleep study he signed off on.(Done on 12/11) Pt reports when she called the office she was advised a referral needed to be faxed to them in order for pt to get an appt. Please review and advise. . Tiesha Molina LPN [facility] 12-24-2024 Note HNO ID: [id number] Author: EMMA SCHULTZ MD Service: ? Author Type: Physician Type: Progress Notes Filed: 12/24/2024 10:11 Note Text: Reason for Visit Follow up HPI Mohini Lane is a 74-year-old female presenting with concerns about a tick bite and a possible spider bite. Mohini reports a tick bite on 12/13, which was removed by her using tweezers. Initially, the site was a small red dot, but it has since enlarged and developed a bullseye appearance. She also reports a second lesion on her buttock, which she suspects may be a spider bite. This lesion has been present for a while but has recently increased in size and become painful, with a hard center. She notes finding a brown spider in her bed recently but is unsure if it is related to the bite. 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 She reports feeling very tired lately, even before the tick bite. She also mentions a recent sleep study, which showed elimating most apnea and hypopneas with 10 cm titration, her AHI is 16 in REM sleep which she is not getting much of and is only a small percentage of her total sleep. arousals during the night. during the sleep study, a nasal CPAP machine was tried but she found it uncomfortable and is considering a different type of mask. Social History Tobacco Use Smoking status: Never Smokeless tobacco: Never Vaping Use Vaping status: Never Used Substance Use Topics Alcohol use: Yes Alcohol/week: 1.0 standard drink of alcohol Types: 1 Glasses of Wine (5oz) per week Comment: at dinner Drug use: Never Past medical history, appointments, medications, allergies reviewed. Pertinent Lab/Diagnostic Studies are reviewed and discussed today Current Outpatient Medications: CPAP/BIPAP/OTHER multivitamin tablet rosuvastatin (CRESTOR) 10 mg tablet SUMAtriptan (IMITREX) 20 mg/actuation nasal spray levothyroxine (SYNTHROID) 50 mcg tablet acebutolol (SECTRAL) 200 mg capsule albuterol HFA (VENTOLIN HFA) 90 mcg/actuation inhaler azelastine 0.1% nasal spray niacin (NIACIN) 500 mg tablet lecithin 1,000 mg chew ubidecarenone Q-10 (COENZYME Q-10) 10 mg cap GAMMA-AMINOBUTYRIC ACID, BULK, MISC polyethylene glycol 3350 (MIRALAX ORAL) glucosam/chond-msm1/C/castro/bor (HKJYSYEBUUS-[id number]-NGK COMPLEX ORAL) magnesium glycinate (MAG GLYCINATE ORAL) doxycycline monohydrate (MONODOX) 100 mg capsule omeprazole (PRILOSEC) 20 mg capsule VIT D3-FOLIC [id number] ORAL Health Maintenance Hepatitis C Screening DTaP,Tdap,Td Vaccine(1 - Tdap) Pneumococcal Vaccine: 50+(2 of 2 - PCV) Advance Directive Discussion Covid-19 Vaccine( season)@ Review Of Systems Constitutional: (+) fatigue Skin: (+) rash, (+) skin pain Neurological: (-) weakness Physical Exam BP 114/67 Pulse 66 Temp 37.2 ?C (99 ?F) (Oral) Resp 16 Wt 62 kg (136 lb 9.6 oz) SpO2 100% BMI 24.20 kg/m? GENERAL: NAD, alert and oriented. SKIN: Erythematous target lesions noted, longitudinal axis is larged on the rash on the right back, 10 cms by 8 cms. it is located in the back, at the waist near the posterior axillary line. she has another lesion on the left buttock, lower aspect where the thigh meets the buttock. HEAD: Normocephalic. EYES: PERRLA, EOMI, conjunctiva clear. EARS: External ears normal, canals clear, TM's normal. NOSE/SINUSES: Nares normal. Septum midline. LUNGS: Clear to auscultation bilaterally, no wheezes/rhonchi/rales. HEART: Regular rate and rhythm, no murmurs. No ectopy. EXTREMITIES: Normal, no deformities, no skin discoloration, no edema. NEURO: Awake, alert and oriented x3, cranial nerves II-XII grossly intact, normal gait, no involuntary motions. Tests - Sleep Study: - Total Sleep Time: 278 minutes - Sleep Efficiency: 77.1% - Awakenings: 28 - Time Awake After Sleep Onset: 74 minutes - Sleep Latency: 8 minutes - REM Latency: 67 minutes - Supine Position: 26.6% - Sleep Architecture: - N1: 9.2% - N2: 49% - N3: 35% - REM: 6.5% - Arousals: 62 - PAP Initiation: 7 - PAP Setting of 10 Eliminated Majority of Respiratory Events - Respiratory Events: 34 - Apneas: 33 (2 obstructive, 12 mixed, 9 central) - Hypopneas: 11 - REM AHI: 16 - Oxygen Desaturation to 83% - Overall AHI < 5 Assessment and Plan 1. Tick bite of lower back, initial encounter (S30.860A) Rash (R21) Tick bite occurred on December 13, with erythema migrans observed. Lesion on the right posterior back waist region measures 9 cm x 4.5 cm, and another lesion on the left thigh measures 12 cm x 8.1 cm. Differential diagnosis includes Lyme disease. - Initiated Doxycycline 100 mg BID for 10-14 days. - Ordered Lyme disease testing. - Follow-up in 2 weeks to assess response to treatment. 2. Sleep apnea, unspecified type (G47.30) Recent sleep study showed 34 respiratory events, including 23 apneas (2 obstructive, (more content not included)... [facility] 12-24-2024 History of Presen t illness Narrative Reason for Visit Follow up HPI Mohini Lane is a 74-year-old female presenting with concerns about a tick bite and a possible spider bite. Mohini reports a tick bite on 12/13, which was removed by her using tweezers. Initially, the site was a small red dot, but it has since enlarged and developed a bullseye appearance. She also reports a second lesion on her buttock, which she suspects may be a spider bite. This lesion has been present for a while but has recently increased in size and become painful, with a hard center. She notes finding a brown spider in her bed recently but is unsure if it is related to the bite. 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 She reports feeling very tired lately, even before the tick bite. She also mentions a recent sleep study, which showed elimating most apnea and hypopneas with 10 cm titration, her AHI is 16 in REM sleep which she is not getting much of and is only a small percentage of her total sleep. arousals during the night. during the sleep study, a nasal CPAP machine was tried but she found it uncomfortable and is considering a different type of mask. Social History Tobacco Use Smoking status: Never Smokeless tobacco: Never Vaping Use Vaping status: Never Used Substance Use Topics Alcohol use: Yes Alcohol/week: 1.0 standard drink of alcohol Types: 1 Glasses of Wine (5oz) per week Comment: at dinner Drug use: Never Past medical history, appointments, medications, allergies reviewed. Pertinent Lab/Diagnostic Studies are reviewed and discussed today Current Outpatient Medications: CPAP/BIPAP/OTHER multivitamin tablet rosuvastatin (CRESTOR) 10 mg tablet SUMAtriptan (IMITREX) 20 mg/actuation nasal spray levothyroxine (SYNTHROID) 50 mcg tablet acebutolol (SECTRAL) 200 mg capsule albuterol HFA (VENTOLIN HFA) 90 mcg/actuation inhaler azelastine 0.1% nasal spray niacin (NIACIN) 500 mg tablet lecithin 1,000 mg chew ubidecarenone Q-10 (COENZYME Q-10) 10 mg cap GAMMA-AMINOBUTYRIC ACID, BULK, MISC polyethylene glycol 3350 (MIRALAX ORAL) glucosam/chond-msm1/C/castro/bor (CBGDEAYHYDD-[id number]-LRP COMPLEX ORAL) magnesium glycinate (MAG GLYCINATE ORAL) doxycycline monohydrate (MONODOX) 100 mg capsule omeprazole (PRILOSEC) 20 mg capsule VIT D3-FOLIC [id number] ORAL Health Maintenance Hepatitis C Screening DTaP,Tdap,Td Vaccine(1 - Tdap) Pneumococcal Vaccine: 50+(2 of 2 - PCV) Advance Directive Discussion Covid-19 Vaccine( season)@ Review Of Systems Constitutional: (+) fatigue Skin: (+) rash, (+) skin pain Neurological: (-) weakness Physical Exam BP 114/67 Pulse 66 Temp 37.2 C (99 F) (Oral) Resp 16 Wt 62 kg (136 lb 9.6 oz) SpO2 100% BMI 24.20 kg/m GENERAL: NAD, alert and oriented. SKIN: Erythematous target lesions noted, longitudinal axis is larged on the rash on the right back, 10 cms by 8 cms. it is located in the back, at the waist near the posterior axillary line. she has another lesion on the left buttock, lower aspect where the thigh meets the buttock. HEAD: Normocephalic. EYES: PERRLA, EOMI, conjunctiva clear. EARS: External ears normal, canals clear, TM's normal. NOSE/SINUSES: Nares normal. Septum midline. LUNGS: Clear to auscultation bilaterally, no wheezes/rhonchi/rales. HEART: Regular rate and rhythm, no murmurs. No ectopy. EXTREMITIES: Normal, no deformities, no skin discoloration, no edema. NEURO: Awake, alert and oriented x3, cranial nerves II-XII grossly intact, normal gait, no involuntary motions. Tests - Sleep Study: - Total Sleep Time: 278 minutes - Sleep Efficiency: 77.1% - Awakenings: 28 - Time Awake After Sleep Onset: 74 minutes - Sleep Latency: 8 minutes - REM Latency: 67 minutes - Supine Position: 26.6% - Sleep Architecture: - N1: 9.2% - N2: 49% - N3: 35% - REM: 6.5% - Arousals: 62 - PAP Initiation: 7 - PAP Setting of 10 Eliminated Majority of Respiratory Events - Respiratory Events: 34 - Apneas: 33 (2 obstructive, 12 mixed, 9 central) - Hypopneas: 11 - REM AHI: 16 - Oxygen Desaturation to 83% - Overall AHI < 5 Assessment and Plan 1. Tick bite of lower back, initial encounter (S30.230A) Rash (R21) Tick bite occurred on December 13, with erythema migrans observed. Lesion on the right posterior back waist region measures 9 cm x 4.5 cm, and another lesion on the left thigh measures 12 cm x 8.1 cm. Differential diagnosis includes Lyme disease. - Initiated Doxycycline 100 mg BID for 10-14 days. - Ordered Lyme disease testing. - Follow-up in 2 weeks to assess response to treatment. 2. Sleep apnea, unspecified type (G47.30) Recent sleep study showed 34 respiratory events, including 23 apneas (2 obstructive, 12 mixed, 9 central) and 11 hypopneas. REM AHI was 16, with desaturation to 83%. - Referred to Dr. South for further evaluation and management. - Discussed potential benefits of CPAP therapy. Voice recognition software was used to compose this office note. Please excuse any unintended typographical errors. Recording using [employer] software for draft documentation of the visit was discussed with the patient/authorized customer operations representative; all questions welcomed and answered. Patient/authorized customer operations representative agreed to proceed Emma Schultz MD documented in this encounter [facility] 12-24-2024 Instructions Emma Schultz MD - 12/24/2024 9:56 AM EDT We discussed your tick bite and possible Lyme disease: - You have a target-shaped rash on your right lower back, which is concerning for early Lyme disease. - Start taking Doxycycline 100 mg twice daily for 10 days. You may extend this to 14 days if needed. This prescription has been sent to [facility] in [place]. - I ordered Lyme disease testing (early testing for symptoms within 30 days). - Monitor for any new symptoms such as fever, joint pain, or worsening fatigue. Let me know if these occur. We discussed the bite on your left thigh: - This bite is large, indurated (hardened), and painful. It may be a spider bite or another insect bite. - The antibiotics prescribed for the tick bite may also help with this lesion. - Monitor the area for any signs of worsening, such as increased redness, swelling, or drainage. We discussed your sleep study results: - Your sleep study showed significant respiratory events during REM sleep, with oxygen levels dropping to 83%. - I will send your sleep study results to Dr. South for further review and recommendations. - Based on your feedback, if a CPAP machine is recommended, you may prefer a mask rather than nasal pillows due to discomfort. Follow-up: - Please schedule a follow-up appointment with me in 2 weeks to review your progress and test results. - Continue monitoring your symptoms and let me know if anything worsens or new symptoms develop. Your prescriptions have been sent to [facility] in [place]. Please pick them up at your convenience. documented in this encounter [facility] 12-21-2024 Telephone encounter Note She has a REM AHI of 16 and supine AHI of 4.5 See copy pasted noted and revert to me please Sleep history: The patient is a 74 year old female with obstructive sleep apnea. A polysomnogram on 12-03-24 showed an overall apnea-hypopnea index (AHI) of 4.5 , Supine AHI of 10.1, REM AHI of 16.6, and an oxygen saturation sai of 83%. The patient is not using CPAP at home. side sleeper. Past medical history: Allergic rhinitis, Anxiety, Chronic sinusitis, Coronary" Emma Valenzuela MD [facility] 12-21-2024 Miscellaneous Notes She has a REM AHI of 16 and supine AHI of 4.5 See copy pasted noted and revert to me please Sleep history: The patient is a 74 year old female with obstructive sleep apnea. A polysomnogram on 12-03-24 showed an overall apnea-hypopnea index (AHI) of 4.5 , Supine AHI of 10.1, REM AHI of 16.6, and an oxygen saturation sai of 83%. The patient is not using CPAP at home. side sleeper. Past medical history: Allergic rhinitis, Anxiety, Chronic sinusitis, Coronary"Emma Valenzuela MD [facility] received your PAP therapy order. At this time, the most recent sleep study one file does not meet the patients current insurance criteria. The insurance requires the following: A diagnostic sleep study with an AHI greater than 5 with a minimum of 10 events. The patient's most recent sleep study is showing an AHI of 4.5. Please note the RERA cannot be a factor in the calculation of the AHI. Thank you, [facility] [phone] # fax documented in this encounter [facility] 12-21-2024 Telephone encounter Note [facility] received your PAP therapy order. At this time, the most recent sleep study one file does not meet the patients current insurance criteria. The insurance requires the following: A diagnostic sleep study with an AHI greater than 5 with a minimum of 10 events. The patient's most recent sleep study is showing an AHI of 4.5. Please note the RERA cannot be a factor in the calculation of the AHI. Thank you, [facility] [phone] # fax [facility] 12-20-2024 Telephone encounter Note Patients sleep study is scanned into the chart. Thank you. [facility] 12-20-2024 Miscellaneous Notes Patients sleep study is scanned into the chart. Thank you. documented in this encounter [facility] 12-19-2024 Telephone encounter Note Please let patient know that I placed orders for cpap at 10 as her pap titration showed that, RegardsEmma MD [facility] 12-19-2024 Miscellaneous Notes Please let patient know that I placed orders for cpap at 10 as her pap titration showed that, Regards, Emma Schultz MD documented in this encounter [facility] 12-11-2024 History of Presen t illness Narrative Radiology Service Progress Note PATIENT NAME: Ursula Lane DATE OF SERVICE: December 11, 2024 TIME: 9:28 AM PATIENT IDENTITY VERIFICATION COMPLETED USING TWO (2) IDENTIFIERS: Name and Date of confirmed by patient verbally. FALL SCREENING: Has the patient had 2 falls in the last year or 1 fall with injury or currently using an Ambulatory Assistive Device (Walker, Cane, Wheelchair, Crutches, etc.)? No PATIENT GENDER DATA: Assigned female at . status: : No status: NO. PATIENT RELEVANT IMPLANT DATA REVIEWED: Not Applicable PATIENT PRESENTS WITH AN IMPLANTABLE OR ATTACHED PHYSICIAN IN PRIVATE PRACTICE: No RADIOLOGY DEPARTMENT: General X-ray: Exam(s) Completed: Lower Extremity X-Ray(s): Foot, Right and Wt. Bearing PERIPHERAL IV DATA: Not applicable SIGNED BY: RT Raisa(R) December 11, 2024 9:28 AM documented in this encounter [facility] 12-11-2024 Note HNO ID: [id number] Author: CHANDLER GARCIA RT(Geovany) Service: Radiology Author Type: Technologist Type: Progress Notes Filed: 12/11/2024 09:43 Note Text: Radiology Service Progress Note PATIENT NAME: Ursula Lane DATE OF SERVICE: December 11, 2024 TIME: 9:28 AM PATIENT IDENTITY VERIFICATION COMPLETED USING TWO (2) IDENTIFIERS: Name and Date of confirmed by patient verbally. FALL SCREENING: Has the patient had 2 falls in the last year or 1 fall with injury or currently using an Ambulatory Assistive Device (Walker, Cane, Wheelchair, Crutches, etc.)? No PATIENT GENDER DATA: Assigned female at . status: : No status: NO. PATIENT RELEVANT IMPLANT DATA REVIEWED: Not Applicable PATIENT PRESENTS WITH AN IMPLANTABLE OR ATTACHED PHYSICIAN IN PRIVATE PRACTICE: No RADIOLOGY DEPARTMENT: General X-ray: Exam(s) Completed: Lower Extremity X-Ray(s): Foot, Right and Wt. Bearing PERIPHERAL IV DATA: Not applicable SIGNED BY: RT Raisa(R) December 11, 2024 9:28 AM [facility] 12-11-2024 Note HNO ID: [id number] Author: ALIZE YUAN, ? Service: ? Author Type: Physician Type: Progress Notes Filed: 12/11/2024 09:30 Note Text: Consultation requested by Dr. Schultz for an opinion regarding numbness in foot. My final recommendations will be communicated back to the requesting physician by way of shared Medical record or letter to requesting physician via [place] mail. Subjective Mohini Lane is a 74-year-old female presenting for evaluation of a "buzzing" sensation in the right foot. Right Foot Paresthesia: - Intermittent "buzzing" sensation in the right foot x1.5 months. - Sensation localized to the lateral aspect of the foot. - Occurs at various times, including day and night, and is not associated with specific activities or footwear. - Describes sensation as similar to a phone vibrating; denies associated pain. - No known precipitating factors; sensation begins and stops spontaneously. - Denies known trauma or injury to the back, hip, or foot. - History of sciatica, predominantly on the right side, but not currently experiencing symptoms. - No recent changes in exercise regimen; engages in gardening. - Occasionally experiences sharp pain in the foot when taking a step, lasting a few days; denies twisting the ankle. Musculoskeletal: (+) intermittent sharp right foot pain Neurological: (+) right foot buzzing sensation, (-) sciatica pain PAST MEDICAL HISTORY Diagnosis Date Disorder of thyroid Irregular heart beat Migraine, intractable Sleep apnea Current Outpatient Medications Medication Sig Dispense Refill multivitamin tablet Take 1 tablet by mouth once daily. rosuvastatin (CRESTOR) 10 mg tablet Take 1 tablet by mouth once daily. 90 tablet 3 SUMAtriptan (IMITREX) 20 mg/actuation nasal spray Use 1 spray in the nose as needed. 12 each 3 omeprazole (PRILOSEC) 20 mg capsule Take 1 capsule by mouth every 12 hours. (Patient not taking: Reported on 11/27/2024) 45 capsule 0 levothyroxine (SYNTHROID) 50 mcg tablet Take 1 tablet by mouth daily before breakfast. 90 tablet 3 acebutolol (SECTRAL) 200 mg capsule Take 1 capsule by mouth two times a day. 180 capsule 3 albuterol HFA (VENTOLIN HFA) 90 mcg/actuation inhaler Inhale 2 Puffs as instructed every 4 hours as needed for wheezing/shortness of breath. 1 Each 1 azelastine 0.1% nasal spray Use 1 [place] in each nostril two times a day. 30 mL 5 niacin (NIACIN) 500 mg tablet Take 500 mg by mouth daily with breakfast. lecithin 1,000 mg chew Take 600 mg by mouth once daily. ubidecarenone Q-10 (COENZYME Q-10) 10 mg cap Take by mouth twice daily. VIT D3-FOLIC [id number]-[id number]-B12 ORAL Take by mouth. (Patient not taking: Reported on 10/26/2024) GAMMA-AMINOBUTYRIC ACID, BULK, MISC polyethylene glycol 3350 (MIRALAX ORAL) Take by mouth once daily. glucosam/chond-msm1/C/castro/bor (ONEPLINCPPF-PIKEU-QMY COMPLEX ORAL) Take by mouth once daily. magnesium glycinate (MAG GLYCINATE ORAL) Take by mouth once daily. No current facility-administered medications for this visit. No family history on file. Objective There were no vitals taken for this visit. - Cardiovascular: Dorsalis pedis and posterior tibial pulses palpable bilaterally; capillary refill <5 seconds; skin temperature warm to cool bilaterally. - Musculoskeletal: - Right Foot: - Mild discomfort along the fifth metatarsal shaft. - Manual muscle testin/5 for plantar flexion, dorsiflexion, inversion, and eversion. - Neurological: - Slightly diminished vibratory sensation bilaterally. Assessment AND Plan 1. Numbness and tingling of foot (R20.0) 2. Right foot pain (M79.671) - Intermittent buzzing sensation in the right foot for approximately 1.5 months, not associated with specific activities or footwear. No significant pain reported, but mild discomfort noted along the right fifth metatarsal shaft on examination. - Physical examination reveals slightly diminished vibratory sensation bilaterally, with intact dorsalis pedis and posterior tibial pulses. - Ordered X-ray of the right foot to rule out stress fracture. - Discussed potential nerve involvement; ordered nerve conduction study to evaluate sural nerve function. - Patient currently using custom orthotic inserts; advised to continue use. Recording using Intron[employer] software for draft documentation of the visit was discussed with the patient/authorized customer operations representative; all questions welcomed and answered. Patient/authorized customer operations representative agreed to proceed Alize Yuan DPM [facility] 12-11-2024 History of Presen t illness Narrative Consultation requested by Dr. Schultz for an opinion regarding numbness in foot. My final recommendations will be communicated back to the requesting physician by way of shared Medical record or letter to requesting physician via [place] mail. Subjective Mohini Lane is a 74-year-old female presenting for evaluation of a "buzzing" sensation in the right foot. Right Foot Paresthesia: - Intermittent "buzzing" sensation in the right foot x1.5 months. - Sensation localized to the lateral aspect of the foot. - Occurs at various times, including day and night, and is not associated with specific activities or footwear. - Describes sensation as similar to a phone vibrating; denies associated pain. - No known precipitating factors; sensation begins and stops spontaneously. - Denies known trauma or injury to the back, hip, or foot. - History of sciatica, predominantly on the right side, but not currently experiencing symptoms. - No recent changes in exercise regimen; engages in gardening. - Occasionally experiences sharp pain in the foot when taking a step, lasting a few days; denies twisting the ankle. Musculoskeletal: (+) intermittent sharp right foot pain Neurological: (+) right foot buzzing sensation, (-) sciatica pain PAST MEDICAL HISTORY Diagnosis Date Disorder of thyroid Irregular heart beat Migraine, intractable Sleep apnea Current Outpatient Medications Medication Sig Dispense Refill multivitamin tablet Take 1 tablet by mouth once daily. rosuvastatin (CRESTOR) 10 mg tablet Take 1 tablet by mouth once daily. 90 tablet 3 SUMAtriptan (IMITREX) 20 mg/actuation nasal spray Use 1 spray in the nose as needed. 12 each 3 omeprazole (PRILOSEC) 20 mg capsule Take 1 capsule by mouth every 12 hours. (Patient not taking: Reported on 11/27/2024) 45 capsule 0 levothyroxine (SYNTHROID) 50 mcg tablet Take 1 tablet by mouth daily before breakfast. 90 tablet 3 acebutolol (SECTRAL) 200 mg capsule Take 1 capsule by mouth two times a day. 180 capsule 3 albuterol HFA (VENTOLIN HFA) 90 mcg/actuation inhaler Inhale 2 Puffs as instructed every 4 hours as needed for wheezing/shortness of breath. 1 Each 1 azelastine 0.1% nasal spray Use 1 [place] in each nostril two times a day. 30 mL 5 niacin (NIACIN) 500 mg tablet Take 500 mg by mouth daily with breakfast. lecithin 1,000 mg chew Take 600 mg by mouth once daily. ubidecarenone Q-10 (COENZYME Q-10) 10 mg cap Take by mouth twice daily. VIT D3-FOLIC ESUV-G9-S9-B12 ORAL Take by mouth. (Patient not taking: Reported on 10/26/2024) GAMMA-AMINOBUTYRIC ACID, BULK, MISC polyethylene glycol 3350 (MIRALAX ORAL) Take by mouth once daily. glucosam/chond-msm1/C/castro/bor (MUYBFJPBBLE-LNWJN-HSP COMPLEX ORAL) Take by mouth once daily. magnesium glycinate (MAG GLYCINATE ORAL) Take by mouth once daily. No current facility-administered medications for this visit. No family history on file. Objective There were no vitals taken for this visit. - Cardiovascular: Dorsalis pedis and posterior tibial pulses palpable bilaterally; capillary refill <5 seconds; skin temperature warm to cool bilaterally. - Musculoskeletal: - Right Foot: - Mild discomfort along the fifth metatarsal shaft. - Manual muscle testin/5 for plantar flexion, dorsiflexion, inversion, and eversion. - Neurological: - Slightly diminished vibratory sensation bilaterally. Assessment & Plan 1. Numbness and tingling of foot (R20.0) 2. Right foot pain (M79.671) - Intermittent buzzing sensation in the right foot for approximately 1.5 months, not associated with specific activities or footwear. No significant pain reported, but mild discomfort noted along the right fifth metatarsal shaft on examination. - Physical examination reveals slightly diminished vibratory sensation bilaterally, with intact dorsalis pedis and posterior tibial pulses. - Ordered X-ray of the right foot to rule out stress fracture. - Discussed potential nerve involvement; ordered nerve conduction study to evaluate sural nerve function. - Patient currently using custom orthotic inserts; advised to continue use. Recording using [employer] software for draft documentation of the visit was discussed with the patient/authorized customer operations representative; all questions welcomed and answered. Patient/authorized customer operations representative agreed to proceed Alize Yuan DPM AMB ROOMING INTAKE FLOWSHEET DATA Patient presents with: Left Foot - New, Numbness Right Foot - New, Numbness Patient states numbness started about 1 month ago . She describes it as a vibration feeling. documented [facility] encounter [facility] 12-11-2024 Instructions Alize Yuan - 12/11/2024 9:18 AM EDT - Have a right foot x-ray today; the radiologist will review the images. - Continue using your current custom shoe inserts in all of your shoes (except sandals). - A nerve conduction study of the sural nerve in your right foot has been ordered to evaluate the numbness documented in this encounter [facility] 12-11-2024 Note HNO ID: [id number] Author: BREE THEODORE LPN Service: ? Author Type: LICENSED NURSE Type: Progress Notes Filed: 12/11/2024 09:30 Note Text: AMB ROOMING INTAKE FLOWSHEET DATA Patient presents with: Left Foot - New, Numbness Right Foot - New, Numbness Patient states numbness started about 1 month ago . She describes it as a vibration feeling. [facility] 12-07-2024 History of Presen t illness Narrative Radiology Service Progress Note PATIENT NAME: Ursula Lane DATE OF SERVICE: December 07, 2024 TIME: 9:28 AM PATIENT IDENTITY VERIFICATION COMPLETED USING TWO (2) IDENTIFIERS: Name and Date of confirmed by patient verbally. FALL SCREENING: Has the patient had 2 falls in the last year or 1 fall with injury or currently using an Ambulatory Assistive Device (Walker, Cane, Wheelchair, Crutches, etc.)? No PATIENT GENDER DATA: Assigned female at . status: : No status: NO. PATIENT RELEVANT IMPLANT DATA REVIEWED: Not Applicable PATIENT PRESENTS WITH AN IMPLANTABLE OR ATTACHED PHYSICIAN IN PRIVATE PRACTICE: No RADIOLOGY DEPARTMENT: Bone Density PERIPHERAL IV DATA: Not applicable SIGNED BY: RT Leonel(Geovany) December 07, 2024 9:28 AM documented in this encounter [facility] 12-07-2024 Note HNO ID: [id number] Author: BE MELTON RT(R) Service: ? Author Type: Technologist Type: Progress Notes Filed: 12/07/2024 09:37 Note Text: Radiology Service Progress Note PATIENT NAME: Ursula Lane DATE OF SERVICE: December 07, 2024 TIME: 9:28 AM PATIENT IDENTITY VERIFICATION COMPLETED USING TWO (2) IDENTIFIERS: Name and Date of confirmed by patient verbally. FALL SCREENING: Has the patient had 2 falls in the last year or 1 fall with injury or currently using an Ambulatory Assistive Device (Walker, Cane, Wheelchair, Crutches, etc.)? No PATIENT GENDER DATA: Assigned female at . status: : No status: NO. PATIENT RELEVANT IMPLANT DATA REVIEWED: Not Applicable PATIENT PRESENTS WITH AN IMPLANTABLE OR ATTACHED PHYSICIAN IN PRIVATE PRACTICE: No RADIOLOGY DEPARTMENT: Bone Density PERIPHERAL IV DATA: Not applicable SIGNED BY: RT Leonel(Geovany) December 07, 2024 9:28 AM [facility] 12-06-2024 Telephone encounter Note Patient active MyChart. Patient notified via Portr message. Essence Cartwright MA [facility] 12-06-2024 Miscellaneous Notes Patient active Rejit. Patient notified via Portr message. Essence Cartwright MA Please let patient know that she has sleep apnea and was recommended to have a pap titration which have ordered Please help her with scheduling. Regards, Emma Schultz MD documented in this encounter [facility] 12-06-2024 Telephone encounter Note Please let patient know that she has sleep apnea and was recommended to have a pap titration which have ordered Please help her with scheduling. Regards, Emma Schultz MD [facility] 12-06-2024 Telephone encounter Note Patients sleep study results are scanned into the chart. Thank you. [facility] 12-06-2024 Miscellaneous Notes Patients sleep study results are scanned into the chart. Thank you. documented in this encounter [facility] 11-27-2024 Note HNO ID: [id number] Author: EMMA SCHULTZ MD Service: ? Author Type: Physician Type: Progress Notes Filed: 11/27/2024 13:09 Note Text: Reason for Visit Follow up HPI Mohini is a 74-year-old female with a history of hypothyroidism, osteoporosis, and arthritis, presenting for follow-up on recent lab results and new onset of a buzzing sensation in the foot. Mohini reports a buzzing sensation in her foot that began approximately one week ago. The sensation is described as similar to a phone vibrating and is localized to the underside and side of the foot, not involving the toes. The buzzing is intermittent, having been intense over the weekend, subsiding, and then recurring. It is present at the time of the visit and has been noted at night while lying in bed without pressure on the foot. She denies any burning sensation or external vibration that can be felt by touch. She wears Keens shoes with orthotic inserts, which were readjusted last year. She also reports generalized arthralgia, particularly in the hands, which she attributes to arthritis. She is currently taking glucosamine chondroitin and fish oil, both of which she finds helpful in managing her symptoms. She denies any other new symptoms. She is currently taking levothyroxine, with a regimen of two tablets on Sundays and one tablet on the other days of the week. She inquires if she should continue this regimen. She was previously on Lexapro but discontinued it due to diarrhea. She is also on acupressureolol for an irregular heartbeat diagnosed in her 40s. She reports that working outside is her "happy place" and helps her relax. She has a scheduled [facility]. Recent lab results show a GFR of 60, cholesterol levels that are "great" but still slightly elevated, and good PTH and vitamin D levels. Her TSH levels in October were reported as very good. Social History Tobacco Use Smoking status: Never Smokeless tobacco: Never Vaping Use Vaping status: Never Used Substance Use Topics Alcohol use: Yes Alcohol/week: 1.0 standard drink of alcohol Types: 1 Glasses of Wine (5oz) per week Comment: at dinner Drug use: Never Past medical history, appointments, medications, allergies reviewed. Pertinent Lab/Diagnostic Studies are reviewed and discussed today Current Outpatient Medications: multivitamin tablet rosuvastatin (CRESTOR) 10 mg tablet SUMAtriptan (IMITREX) 20 mg/actuation nasal spray levothyroxine (SYNTHROID) 50 mcg tablet acebutolol (SECTRAL) 200 mg capsule albuterol HFA (VENTOLIN HFA) 90 mcg/actuation inhaler azelastine 0.1% nasal spray niacin (NIACIN) 500 mg tablet lecithin 1,000 mg chew ubidecarenone Q-10 (COENZYME Q-10) 10 mg cap GAMMA-AMINOBUTYRIC ACID, BULK, MISC polyethylene glycol 3350 (MIRALAX ORAL) glucosam/chond-msm1/C/castro/bor ([id number] COMPLEX ORAL) magnesium glycinate (MAG GLYCINATE ORAL) omeprazole (PRILOSEC) 20 mg capsule VIT D3-FOLIC [id number] ORAL Health Maintenance Hepatitis C Screening DTaP,Tdap,Td Vaccine(1 - Tdap) Pneumococcal Vaccine: 50+(2 of 2 - PCV) Advance Directive Discussion Covid-19 Vaccine( season)@ Review Of Systems Musculoskeletal: (+) joint pain Neurological: (+) foot paresthesia, (-) burning Physical Exam BP 112/71 Pulse 63 Ht 160 cm (5' 3") Wt 61.6 kg (135 lb 12.9 oz) SpO2 99% BMI 24.06 kg/m? GENERAL: NAD, alert and oriented SKIN: Unremarkable, no rash or skin lesions. HEAD: Normocephalic EYES: PERRLA, EOMI, conjunctiva clear NECK: Supple, no lymphadenopathy, normal thyroid, no carotid bruits. LUNGS: Clear to auscultation bilaterally, no wheezes/rhonchi/rales. HEART: Regular rate and rhythm, no murmurs. No ectopy. EXTREMITIES: Normal, no deformities, no skin discoloration, no edema. NEURO: Awake, alert and oriented x3, cranial nerves II-XII grossly intact, normal gait, no involuntary motions Labs: - Renal Function: - GFR: 60 (stage 3 CKD) - Creatinine: Improved compared to previous levels (exact value not specified) - Lipid Panel: - Total Cholesterol: Mildly elevated - HDL: Normal - Ratios: Normal - PTH: Normal - Vitamin D: Normal - Hemoglobin A1c (last year): Normal Imaging: - MRI Brain: Decreased hippocampal volumes consistent with Alzheimer?s disease Assessment and Plan 1. Numbness and tingling of foot (R20.0) Intermittent buzzing sensation in the foot, localized to the S1 nerve root area. No burning sensation reported. Differential diagnosis includes neuropathy or nerve compression. - Ordered Vitamin B12 level. - Referred to podiatry for further evaluation. 2. Vitamin B12 deficiency (E53.8) Last year's Vitamin B12 levels were within normal limits. 3. Stage 3 chronic kidney disease, unspecified whether stage 3a or 3b CKD (HCC) (N18.30) GFR is currently 60 mL/min/1.73 m?. Previous creatinine levels were elevated, but (more content not included)... [facility] 11-27-2024 History of Presen t illness Narrative Reason for Visit Follow up HPI Pat is a 74-year-old female with a history of hypothyroidism, osteoporosis, and arthritis, presenting for follow-up on recent lab results and new onset of a buzzing sensation in the foot. Mohini reports a buzzing sensation in her foot that began approximately one week ago. The sensation is described as similar to a phone vibrating and is localized to the underside and side of the foot, not involving the toes. The buzzing is intermittent, having been intense over the weekend, subsiding, and then recurring. It is present at the time of the visit and has been noted at night while lying in bed without pressure on the foot. She denies any burning sensation or external vibration that can be felt by touch. She wears Keens shoes with orthotic inserts, which were readjusted last year. She also reports generalized arthralgia, particularly in the hands, which she attributes to arthritis. She is currently taking glucosamine chondroitin and fish oil, both of which she finds helpful in managing her symptoms. She denies any other new symptoms. She is currently taking levothyroxine, with a regimen of two tablets on Sundays and one tablet on the other days of the week. She inquires if she should continue this regimen. She was previously on Lexapro but discontinued it due to diarrhea. She is also on acupressureolol for an irregular heartbeat diagnosed in her 40s. She reports that working outside is her "happy place" and helps her relax. She has a [facility]. Recent lab results show a GFR of 60, cholesterol levels that are "great" but still slightly elevated, and good PTH and vitamin D levels. Her TSH levels in October were reported as very good. Social History Tobacco Use Smoking status: Never Smokeless tobacco: Never Vaping Use Vaping status: Never Used Substance Use Topics Alcohol use: Yes Alcohol/week: 1.0 standard drink of alcohol Types: 1 Glasses of Wine (5oz) per week Comment: at dinner Drug use: Never Past medical history, appointments, medications, allergies reviewed. Pertinent Lab/Diagnostic Studies are reviewed and discussed today Current Outpatient Medications: multivitamin tablet rosuvastatin (CRESTOR) 10 mg tablet SUMAtriptan (IMITREX) 20 mg/actuation nasal spray levothyroxine (SYNTHROID) 50 mcg tablet acebutolol (SECTRAL) 200 mg capsule albuterol HFA (VENTOLIN HFA) 90 mcg/actuation inhaler azelastine 0.1% nasal spray niacin (NIACIN) 500 mg tablet lecithin 1,000 mg chew ubidecarenone Q-10 (COENZYME Q-10) 10 mg cap GAMMA-AMINOBUTYRIC ACID, BULK, MISC polyethylene glycol 3350 (MIRALAX ORAL) glucosam/chond-msm1/C/castro/bor ([id number] COMPLEX ORAL) magnesium glycinate (MAG GLYCINATE ORAL) omeprazole (PRILOSEC) 20 mg capsule VIT D3-FOLIC [id number] ORAL Health Maintenance Hepatitis C Screening DTaP,Tdap,Td Vaccine(1 - Tdap) Pneumococcal Vaccine: 50+(2 of 2 - PCV) Advance Directive Discussion Covid-19 Vaccine( season)@ Review Of Systems Musculoskeletal: (+) joint pain Neurological: (+) foot paresthesia, (-) burning Physical Exam BP 112/71 Pulse 63 Ht 160 cm (5' 3") Wt 61.6 kg (135 lb 12.9 oz) SpO2 99% BMI 24.06 kg/m GENERAL: NAD, alert and oriented SKIN: Unremarkable, no rash or skin lesions. HEAD: Normocephalic EYES: PERRLA, EOMI, conjunctiva clear NECK: Supple, no lymphadenopathy, normal thyroid, no carotid bruits. LUNGS: Clear to auscultation bilaterally, no wheezes/rhonchi/rales. HEART: Regular rate and rhythm, no murmurs. No ectopy. EXTREMITIES: Normal, no deformities, no skin discoloration, no edema. NEURO: Awake, alert and oriented x3, cranial nerves II-XII grossly intact, normal gait, no involuntary motions Labs: - Renal Function: - GFR: 60 (stage 3 CKD) - Creatinine: Improved compared to previous levels (exact value not specified) - Lipid Panel: - Total Cholesterol: Mildly elevated - HDL: Normal - Ratios: Normal - PTH: Normal - Vitamin D: Normal - Hemoglobin A1c (last year): Normal Imaging: - MRI Brain: Decreased hippocampal volumes consistent with Alzheimer s disease Assessment and Plan 1. Numbness and tingling of foot (R20.0) Intermittent buzzing sensation in the foot, localized to the S1 nerve root area. No burning sensation reported. Differential diagnosis includes neuropathy or nerve compression. - Ordered Vitamin B12 level. - Referred to podiatry for further evaluation. 2. Vitamin B12 deficiency (E53.8) Last year's Vitamin B12 levels were within normal limits. 3. Stage 3 chronic kidney disease, unspecified whether stage 3a or 3b CKD (HCC) (N18.30) GFR is currently 60 mL/min/1.73 m . Previous creatinine levels were elevated, but current levels are stable. - Continue monitoring renal function. - Maintain blood pressure control with current medication regimen. 4. Hypothyroidism, unspecified type (E03.9) TSH levels in October were within normal range. Patient is currently on levothyroxine therapy. - Continue current levothyroxine dosage: two tablets on Sundays and one tablet on other days. Voice recognition software was used to compose this office note. Please excuse any unintended typographical errors. Recording using [employer]tron[employer] software for draft documentation of the visit was discussed with the patient/authorized customer operations representative; all questions welcomed and answered. Patient/authorized customer operations representative agreed to proceed Emma Schultz MD documented in this encounter [facility] 11-27-2024 Instructions Emma Schultz MD - 11/27/2024 10:03 AM EDT We discussed your kidney function and lab results: - Your creatinine and GFR levels indicate stage 3 chronic kidney disease. Your GFR is currently 60, which is stable. We will continue to monitor these levels. - Your cholesterol levels are slightly elevated, but your good cholesterol (HDL) and cholesterol ratios are within acceptable ranges. - Your PTH and vitamin D levels are good. Continue your current regimen, including taking levothyroxine as prescribed (2 tablets on Sundays and 1 tablet the rest of the week). We discussed the buzzing sensation in your foot: - The buzzing sensation may be related to nerve compression (S1 nerve root) or other factors such as footwear or activity. - I recommend seeing a doffer for further evaluation and to determine if adjustments to your orthotics or other interventions are needed. - Your vitamin B12 and A1c levels were normal last year, so we will recheck your vitamin B12 levels to rule out any deficiencies. We discussed your arthritis and joint pain: - You can try [id number] curcumin or steeped lucia water to help reduce inflammation. - Continue taking glucosamine chondroitin and fish oil, as you noted these help with your joint pain and inflammation. We discussed your osteoporosis: - You have a [facility]. Please proceed with this appointment as planned. Follow-up: - Schedule an appointment with a doffer for evaluation of the buzzing sensation in your foot. - Continue monitoring your kidney function and blood pressure. Keep taking your medications as prescribed. - Let us know if you experience any new or worsening symptoms, including changes in memory, mobility, or pain. documented in this encounter [facility] 11-22-2024 Telephone encounter Note Spoke with patient and she stated she was coming in for lab work and she will schedule when she arrives. [facility] 11-22-2024 Miscellaneous Notes Spoke with patient and she stated she was coming in for lab work and she will schedule when she arrives. [facility] [place] Emma Valenzuela MD Pt reports [facility] advised her to call pcp to find out where the bone density with TBS score can be done. Reviewed message below with patient, and advised we would call her back with more information. Pt agreeable. Chelsie from [facility] calls and states that they do not bone density with TBS score. Patient was scheduled to get bone density testing done tomorrow, however Chelsie is calling patient to cancel testing. [facility] does not do testing as well. Chelsie will have patient call office. Yamilka Stringer RN documented in this encounter [facility] 11-21-2024 Telephone encounter Note [facility] [place] Emma Valenzuela MD [facility] 11-21-2024 Telephone encounter Note Pt reports [facility] advised her to call pcp to find out where the bone density with TBS score can be done. Reviewed message below with patient, and advised we would call her back with more information. Pt agreeable. [facility] 11-21-2024 Telephone encounter Note Chelsie from [facility] calls and states that they do not bone density with TBS score. Patient was scheduled to get bone density testing done tomorrow, however Chelsie is calling patient to cancel testing. [facility] does not do testing as well. Chelsie will have patient call office. Yamilka Stringer RN [facility] 10-31-2024 Telephone encounter Note Faxed as requested. [facility] 10-31-2024 Miscellaneous Notes Faxed as requested. The order are in please fax them. Not sure if I need to order them again Emma Valenzuela MD Please order test so they can be faxed for patient. Patient called requesting to have bone density test at the [facility] Requesting to please fax order there documented in this encounter [facility] 10-29-2024 Telephone encounter Note The order are in please fax them. Not sure if I need to order them again Emma Valenzuela MD [facility] 10-29-2024 Telephone encounter Note Please order test so they can be faxed for patient. [facility] 10-29-2024 Telephone encounter Note Patient called requesting to have bone density test at the [facility] Requesting to please fax order there [facility] Work Phone: 10-26-2024 Note HNO ID: [id number] Author: EMMA SCHULTZ MD Service: ? Author Type: Physician Type: Progress Notes Filed: 10/26/2024 09:49 Note Text: Ursula Lane is a 73 year old female here for a Medicare wellness visit. Medicare Health Risk Assessment General Health Very good Exercise: Minutes/Day 40 min Exercise: Days/Week 3 days Alcohol: Daily Use Never Alcohol: Drinks/Day Patient does not drink Alcohol: 6 or more drinks Never Feel off balance No Concerns: Teeth/Dentures Yes Concerns: Sexual function No Troubled by feelings Stressed; Irritable Frequency: Eating healthy diet Nearly every day ADLs requiring help Safety precautions in home/vehicle No Smoke, vape, chews tobacco No Difficulty hearing Yes Difficulty seeing No Current Providers Specialists: I have reviewed specialist-related care of the patient in the medical record. Medical/Family history review Reviewed and updated problem list, medical/surgical/family/social history, medications, and allergies. Opioid use review Opioid Medications (last 90 days) No data to display Anxiety/Depression screening PHQ-2 Score: 1 (Lower risk for depression) JORGE-7 Score: 5 (Mild Anxiety) Recommendation: no further intervention at this time Cognitive screening Mini Cog Score: 5 Cognitive screening reviewed and No further action needed (score 3-5). Functional Observation Was the patient's Timed Up AND Go test unsteady or >= 12 seconds? No Advance Care Planning Surrogate decision maker and/or advance care plan documented Measurements BP 110/68 Pulse 68 Resp 16 Ht 160 cm (5' 2.99") Wt 60.8 kg (134 lb) BMI 23.74 kg/m? Vision Screening: Follows with optometry/ophthalmology Assessment/Plan Medicare annual wellness visit, subsequent (Z00.00) - Counseled on healthy diet and regular exercise - Fall avoidance information provided - Personalized prevention plan provided Reason for Visit Follow up HPI Mohini is a 73-year-old female presenting for a Medicare Annual Wellness Visit. Mohini reports significant stress and depression related to her 's dementia. She describes the situation as "very painful" and notes that her has periods of lucidity followed by confusion, which she finds frustrating and difficult to manage. She also reports that the stress is affecting her memory, causing her to forget why she entered a room or what she was looking up on her phone. She expresses concern about developing dementia, as her mother had the condition, which was attributed to multiple mini-strokes. She reports difficulty hearing, especially in group settings, and believes she is experiencing hearing loss. She has a family history of hearing loss, with her mother losing hearing in one ear suddenly and her sister requiring surgery and using two hearing aids. Mohini has been taking omeprazole since March for acid reflux and wishes to discontinue it due to concerns about potential kidney effects. She reports that certain foods, such as tomato sauce and fried foods, exacerbate her acid indigestion. She experiences migraines 2-3 times a month, which start on one side of her head and spread to her sinuses. If untreated, the migraines result in emesis. She does not experience auras and finds relief with sumatriptan. She reports poor sleep quality, waking up 4-5 times a night and feeling tired during the day despite getting more than 8 hours of sleep. She has a routine of going to bed at 2230 but sometimes cannot sleep. She uses a generic sleep aid but still wakes up during the night. She sleeps on her side and is unsure if she snores, as she and her sleep in separate bedrooms. She had a sleep study many years ago, which was normal, but her Apple Watch has recently indicated possible sleep apnea. She takes sotalol for an irregular heartbeat. She has lost an inch in height and experiences back pain around her kidney area, as well as lower back pain attributed to sciatica. She manages her sciatica with exercises. She exercises 40 minutes, 3 days a week, and works in her garden whenever it is not raining. She has stopped drinking alcohol, previously consuming a glass of red wine with dinner. She aims to drink 8 glasses of water a day and achieves this 80-90% of the time. Social History Tobacco Use Smoking status: Never Smokeless tobacco: Never Vaping Use Vaping status: Never Used Substance Use Topics Alcohol use: Yes Alcohol/week: 1.0 standard drink of alcohol Types: 1 Glasses of Wine (5oz) per week Comment: at dinner Drug use: Never Past medical history, appointments, medications, allergies reviewed. Pertinent Lab/Diagnostic Studies are reviewed and discussed today Current Outpatient Medications: levothyroxine (SYNTHROID) 50 mcg tablet acebutolol (SECTRAL) 200 mg capsule albuterol HFA (VENTOLIN HFA) 90 mcg/actuation inhaler niacin (NIACIN) 500 mg tablet lecithin 1,000 m (more content not included)... [facility] 10-12-2024 Evaluation note Diagnosis Hypothyroidism, unspecified type- Primary Stage 3a chronic kidney disease (HCC) Mixed hyperlipidemia Elevated glucose Other abnormal glucose documented in this encounter [facility] History of Present illness Narrative* Shelli Valentine Mammo Tech - 09/03/2024 9:10 AM EST Radiology Service Progress Note PATIENT NAME: Ursula Lane DATE OF SERVICE: September 03, 2024 TIME: 9:22 AM PATIENT IDENTITY VERIFICATION COMPLETED USING TWO (2) IDENTIFIERS: Name and Date of confirmedby patient verbally. FALL SCREENING: Has the patient had 2 falls in the last year or 1 fall with injury or currently using an Ambulatory Assistive Device (Walker, Cane, Wheelchair, Crutches, etc.)? No PATIENT GENDER DATA: Assigned female at . status: : No status:NO. PATIENT RELEVANT IMPLANT DATA REVIEWED: Not Applicable PATIENT PRESENTS WITH AN IMPLANTABLE OR ATTACHED PHYSICIAN IN PRIVATE PRACTICE: No RADIOLOGY DEPARTMENT: Mammography PERIPHERAL IV DATA: Not applicable SIGNED BY: Hakan Herman September 03, 2024 9:22 AM [facility] NoteHNO ID: [id number] Author: SHELLI VALENTINE Mammo Tech Service: ? Author Type: [employer] Officer Type: Progress Notes Filed: 09/03/2024 09:23 Note Text: Radiology Service Progress Note PATIENT NAME: Ursula Lane DATE OF SERVICE: September 03, 2024 TIME: 9:22 AM PATIENT IDENTITY VERIFICATION COMPLETED USING TWO (2) IDENTIFIERS: Name and Date of confirmed by patient verbally. FALL SCREENING: Has the patient had 2 falls in the last year or 1 fall with injury or currently using an Ambulatory Assistive Device (Walker, Cane, Wheelchair, Crutches, etc.)? No PATIENT GENDER DATA: Assigned female at . status: : No status: NO. PATIENT RELEVANT IMPLANT DATA REVIEWED: Not Applicable PATIENT PRESENTS WITH AN IMPLANTABLE OR ATTACHED PHYSICIAN IN PRIVATE PRACTICE: No RADIOLOGY DEPARTMENT: Mammography PERIPHERAL IV DATA: Not applicable SIGNED BY: Hakan Herman September 03, 2024 9:22 [facility]02-24-[facility]25 Telephone encounter Note* Telephone Encounter - Yamilka Stringer RN - 08/27/2024 3:42 PM EST Patient calls and is asking if provider can send in prescription for 90 day supply to [facility],previous prescription was sent for only 30 day supply. The patient has been identified by name and date of : Yes Caregiver verified no other encounters exist for this prescription request: Yes Caregiver confirmed with patient/requestor that no other refills are due, in the near future, with this provider at this time: Yes The last office visit in the department: 05/07/2024 Does the patient have a future office visit with this provider/department:Y 10/26/2024 Requested Prescriptions Pending Prescriptions Disp Refills levothyroxine (SYNTHROID) 50 mcg tablet 90 tablet 3 Sig: Take 1 tablet by mouth daily before breakfast. Yamilka Stringer RN August 27, 2024 3:44 PM [facility] Miscellaneous Notes* Telephone Encounter - Yamilka Stringer RN - 08/27/2024 3:42 PM EST Patient calls and is asking if provider can send in prescription for 90 day supply to [facility],previous prescription was sent for only 30 day supply. The patient has been identified by name and date of : Yes Caregiver verified no other encounters exist for this prescription request: Yes Caregiver confirmed with patient/requestor that no other refills are due, in the near future, with this provider at this time: Yes The last office visit in the department: 05/07/2024 Does the patient have a future office visit with this provider/department:Y 10/26/2024 Requested Prescriptions Pending Prescriptions Disp Refills levothyroxine (SYNTHROID) 50 mcg tablet 90 tablet 3 Sig: Take 1 tablet by mouth daily before breakfast. Yamilka Stringer RN August 27, 2024 3:44 PM [facility] in [facility] Telephone encounter Note * Telephone Encounter - Lissa Brand LPN - 08/06/2024 3:41 PM EST Insurance does not cover, please consider an alternative. Lissa Brand LPN [facility] Miscellaneous Notes* Telephone Encounter - Lissa Brand LPN - 08/06/2024 3:41 PM EST Insurance does not cover, please consider an alternative. Lissa Brand LPN [facility] Telephone encounter Note * Telephone Encounter - Linda Braden LPN - 07/28/2024 10:46 AM EST Prescription Refill Information The patient has been identified by name and date of : Yes Caregiver verified no other encounters exist for this prescription request: Yes Caregiver confirmed with patient/requestor that no other refills are due, in the near future, with this provider at this time: Yes The last office visit in the department: 05/07/24 Does the patient have a future office visit with this provider/department: Yes Requested Prescriptions Pending Prescriptions Disp Refills acebutolol (SECTRAL) 200 mg capsule 180 capsule 3 Sig: Take 1 capsule by mouth two times a day. levothyroxine (LEVOXYL) 50 mcg tablet 90 tablet 3 Sig: Take 1 tablet by mouth once daily. Linda Braden LPN July 28, 2024 10:46 AM [facility] Miscellaneous Notes* Telephone Encounter - Linda Braden LPN - 07/28/2024 10:46 AM EST Prescription Refill Information The patient has been identified by name and date of : Yes Caregiver verified no other encounters exist for this prescription request: Yes Caregiver confirmed with patient/requestor that no other refills are due, in the near future, with this provider at this time: Yes The last office visit in the department: 05/07/24 Does the patient have a future office visit with this provider/department: Yes Requested Prescriptions Pending Prescriptions Disp Refills acebutolol (SECTRAL) 200 mg capsule 180 capsule 3 Sig: Take 1 capsule by mouth two times a day. levothyroxine (LEVOXYL) 50 mcg tablet 90 tablet 3 Sig: Take 1 tablet by mouth once daily. 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 documented in this [facility]24 NoteHNO ID: [id number] Author: EMMA SCHULTZ MD Service: ? Author Type: Physician Type: Progress Notes Filed: 05/07/2024 14:01 Note Text: Reason for Visit Patient presents with: left hand pain Ursula Lane is a 72 year old female who presents here today for Above Complaints.. Health Maintenance HEPATITIS C SCREENING DTAP,TDAP,TD(1 - Tdap) PNEUMOCOCCAL: 65+(2 - PCV) COLORECTAL CANCER SCREENING ADVANCE DIRECTIVE DISCUSSION DEPRESSION ASSESSMENT SHINGRIX VACCINE(2 of 2) HPI Reviewed her labs which are normal. Discussed her husbands condition with her. Spent times discussing the Alzheimers dementia diagnosis for her . Hypothyroidism. She is doing well on her current dose of Synthroid. Denies fatigue, cold intolerance and swelling in feet. TSH recently checked and normal. HPL: Reviewed test results with patient , takes medications regularly , does not report side effects. Conscious to avoid red meats, full fat dairy and its by products. Exercising 3 to 5 times a week. HTN: BP controlled today. Checks BP at home. Compliant with medications. Denies any chest pain, palpitations, SOB, swelling in the feet. Careful with diet to avoid salt, trying to eat more fruits and vegetables, exercises regularly She will get me a copy of her living will and advance directives. Had EGD in March of 2024: and needs a repeat in a years time. 05/06/2024: 3 days ago on Tuesday, she noticed as she woke up in the morning, pain in the left hand, specifically when she is flexing her DIP joints. 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 No problem-specific Assessment AND Plan notes found for this encounter. PAST MEDICAL HISTORY Diagnosis Date Disorder of thyroid Irregular heart beat Migraine, intractable No past surgical history on file. No family history on file. Social History Tobacco Use Smoking status: Never Smokeless tobacco: Never Vaping Use Vaping status: Never Used Substance Use Topics Alcohol use: Yes Alcohol/week: 1.0 standard drink of alcohol Types: 1 Glasses of Wine (5oz) per week Comment: at dinner Drug use: Never Past medical history, appointments, medications, allergies reviewed. Pertinent Lab/Diagnostic Studies are reviewed and discussed today Current Outpatient Medications: omeprazole (PRILOSEC) 20 mg capsule levothyroxine (LEVOXYL) 50 mcg tablet rosuvastatin (CRESTOR) 10 mg tablet benzonatate (TESSALON PERLE) 100 mg capsule acebutolol (SECTRAL) 200 mg capsule SUMAtriptan (IMITREX) 20 mg/actuation nasal spray pantoprazole DR (PROTONIX) 20 mg tablet albuterol HFA (VENTOLIN HFA) 90 mcg/actuation inhaler azelastine 0.1% nasal spray niacin (NIACIN) 500 mg tablet lecithin 1,000 mg chew ubidecarenone Q-10 (COENZYME Q-10) 10 mg cap VIT D3-FOLIC [id number]-B12 ORAL GAMMA-AMINOBUTYRIC ACID, BULK, MISC polyethylene glycol 3350 (MIRALAX ORAL) glucosam/chond-msm1/C/castro/bor ([id number] COMPLEX ORAL) magnesium glycinate (MAG GLYCINATE ORAL) Review of Systems CONSTITUTIONAL: No fevers, chills night sweats, unintended weight loss CARDIOVASCULAR: No chest pain, dyspnea, palpitations, orthopnea, PND, ankle edema. PULM: No dyspnea, unexplained cough. GI: No dysphagia/odynophagia, problematic reflux, constipation, diarrhea, changes in stool habits, hematochezia, melena. : No new urinary complaints, including dysuria, gross hematuria or pyuria. NEURO: No new balance problems, peripheral weakness/paresthesias or numbness of concern. Physical Exam BP 124/74 Pulse 63 Resp 16 Wt 61.2 kg (135 lb) BMI 23.17 kg/m? General appearance: Well appearing, alert, in no acute distress, well nourished. Skin: Skin color, texture, turgor normal, no suspicious rashes or lesions Head: Normocephalic, no masses, lesions, tenderness or abnormalities Eyes: Anicteric sclera. Pupils are equally round and reactive to light. Extraocular movements are intact. Hand: pain in the 2nd to 5 th DIP Joints when completely flexed, she has so much pain that she cannot flex,. It. ASSESSMENT/PLAN: 1. Tendinitis - ICD9: 726.90, ICD10: M77.9 . Trial of prednisone. Went over the side effect profile for the drug with the patient, , discussed appropriate concerns , alternatives and benefits of the drug, - PREDNISONE 10 MG TABLET Emma Schultz [facility]11-04-2024 History of Present illness Narrative* Emma Schultz MD - 05/07/2024 10:48 AM EST Reason for Visit Patient presents with: left hand pain Ursula Lane is a 72 year old female who presents here today for Above Complaints.. Health Maintenance HEPATITIS C SCREENING DTAP,TDAP,TD(1 - Tdap) PNEUMOCOCCAL: 65+(2 - PCV) COLORECTAL CANCER SCREENING ADVANCE DIRECTIVE DISCUSSION DEPRESSION ASSESSMENT SHINGRIX VACCINE(2 of 2) HPI Reviewed her labs which are normal. Discussed her husbands condition with her. Spent times discussing the Alzheimers dementia diagnosisfor her . Hypothyroidism. She is doing well on her current dose of Synthroid. Denies fatigue, cold intolerance and swelling in feet. TSH recently checked and normal. HPL: Reviewed test results with patient , takes medications regularly , does not report side effects. Conscious to avoid red meats, full fat dairy and its by products. Exercising 3 to 5 times a week. HTN: BP controlled today. Checks BP at home. Compliant with medications. Denies any chest pain, palpitations, SOB, swelling in the feet. Careful with diet to avoid salt, trying to eat more fruits andvegetables, exercises regularly She will get me a copy of her living will and advance directives. Had EGD in March of 2024: and needs a repeat in a years time. 05/06/2024: 3 days ago on Tuesday, she noticed as she woke up in the morning, pain in the left hand, specifically when she is flexing her DIP joints. 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 No problem-specific Assessment & Plan notes found for this encounter. PAST MEDICAL HISTORY Diagnosis Date Disorder of thyroid Irregular heart beat Migraine, intractable No past surgical history on file. No family history on file. Social History Tobacco Use Smoking status: Never Smokeless tobacco: Never Vaping Use Vaping status: Never Used Substance Use Topics Alcohol use: Yes Alcohol/week: 1.0 standard drink of alcohol Types: 1 Glasses of Wine (5oz) per week Comment: at dinner Drug use: Never Past medical history, appointments, medications, allergies reviewed. Pertinent Lab/Diagnostic Studies are reviewed and discussed today Current Outpatient Medications: omeprazole (PRILOSEC) 20 mg capsule levothyroxine (LEVOXYL) 50 mcg tablet rosuvastatin (CRESTOR) 10 mg tablet benzonatate (TESSALON PERLE) 100 mg capsule acebutolol (SECTRAL) 200 mg capsule SUMAtriptan (IMITREX) 20 mg/actuation nasal spray pantoprazole DR (PROTONIX) 20 mg tablet albuterol HFA (VENTOLIN HFA) 90 mcg/actuation inhaler azelastine 0.1% nasal spray niacin (NIACIN) 500 mg tablet lecithin 1,000 mg chew ubidecarenone Q-10 (COENZYME Q-10) 10 mg cap VIT D3-FOLIC [id number] ORAL GAMMA-AMINOBUTYRIC ACID, BULK, MISC polyethylene glycol 3350 (MIRALAX ORAL) glucosam/chond-msm1/C/castro/bor ([id number] COMPLEX ORAL) magnesium glycinate (MAG GLYCINATE ORAL) Review of Systems CONSTITUTIONAL: No fevers, chills night sweats, unintended weight loss CARDIOVASCULAR: No chest pain, dyspnea, palpitations, orthopnea, PND, ankle edema. PULM: No dyspnea, unexplained cough. GI: No dysphagia/odynophagia, problematic reflux, constipation, diarrhea, changes in stool habits, hematochezia, melena. : No new urinary complaints, including dysuria, gross hematuria or pyuria. NEURO: No new balance problems, peripheral weakness/paresthesias or numbness of concern. Physical Exam BP 124/74 Pulse 63 Resp 16 Wt 61.2 kg (135 lb) BMI 23.17 kg/m General appearance: Well appearing, alert, in no acute distress, well nourished. Skin: Skin color, texture, turgor normal, no suspicious rashes or lesions Head: Normocephalic, no masses, lesions, tenderness or abnormalities Eyes: Anicteric sclera. Pupils are equally round and reactive to light. Extraocular movements are intact. Hand: pain in the 2nd to 5 th DIP Joints when completely flexed, she has so much pain that she cannot flex,. It. ASSESSMENT/PLAN: 1. Tendinitis - ICD9: 726.90, ICD10: M77.9 . Trial of prednisone. Went over the side effect profile for the drug with the patient, , discussed appropriate concerns ,alternatives and benefits of the drug, - PREDNISONE 10 MG TABLET Emma Schultz MD [facility] Telephone encounter Note * Telephone Encounter - Layla Colvin LPN - 05/07/2024 8:33 AM EST Pt called in to report now her left hand is swelling and painful, especially her ring finger x 2 days. This started Tuesday05/06/24. Pt has iced and took 2 aleve last night and 1 aleve this am. Pt reports her right hand was swollen and painful, red an hot x 1 week earlier. With the right hand all symptoms have resolved except a little pain still there. Pt denies SOB, chest pain, difficulty breathing. Pt scheduled for an apt today with provider/team. Layla Colvin LPN [facility] Miscellaneous Notes* Telephone Encounter - Layla Colvin LPN - 05/07/2024 8:33 AM EST Pt called in to report now her left hand is swelling and painful, especially her ring finger x 2 days. This started Tuesday05/06/24. Pt has iced and took 2 aleve last night and 1 aleve this am. Pt reports her right hand was swollen and painful, red an hot x 1 week earlier. With the right hand all symptoms have resolved except a little pain still there. Pt denies SOB, chest pain, difficulty breathing. Pt scheduled for an apt today with provider/team. Layla Colvin LPN documented in this encounterCity Hospital10-24-2024 NoteHNO ID: [id number] Author: EMMA SCHULTZ MD Service: ? Author Type: Physician Type: Progress Notes Filed: 04/26/2024 12:48 Note Text: Reason for Visit Patient presents with: F/U [address] is a 72 year old female who presents here today for Above Complaints.. Health Maintenance HEPATITIS C SCREENING DTAP,TDAP,TD(1 - Tdap) PNEUMOCOCCAL: 65+(2 - PCV) COLORECTAL CANCER SCREENING ADVANCE DIRECTIVE DISCUSSION DEPRESSION ASSESSMENT SHINGRIX VACCINE(2 of 2) HPI Reviewed her labs which are normal. Discussed her husbands condition with her. Spent times discussing the Alzheimers dementia diagnosis for her . Hypothyroidism. She is doing well on her current dose of Synthroid. Denies fatigue, cold intolerance and swelling in feet. TSH recently checked and normal. HPL: Reviewed test results with patient , takes medications regularly , does not report side effects. Conscious to avoid red meats, full fat dairy and its by products. Exercising 3 to 5 times a week. HTN: BP controlled today. Checks BP at home. Compliant with medications. Denies any chest pain, palpitations, SOB, swelling in the feet. Careful with diet to avoid salt, trying to eat more fruits and vegetables, exercises regularly She will get me a copy of her living will and advance directives. Had EGD in March of 2024: and needs an repeat in a years time. No problem-specific Assessment AND Plan notes found for this encounter. PAST MEDICAL HISTORY Diagnosis Date Disorder of thyroid Irregular heart beat Migraine, intractable No past surgical history on file. No family history on file. Social History Tobacco Use Smoking status: Never Smokeless tobacco: Never Vaping Use Vaping status: Never Used Substance Use Topics Alcohol use: Yes Alcohol/week: 1.0 standard drink of alcohol Types: 1 Glasses of Wine (5oz) per week Comment: at dinner Drug use: Never Past medical history, appointments, medications, allergies reviewed. Pertinent Lab/Diagnostic Studies are reviewed and discussed today Current Outpatient Medications: omeprazole (PRILOSEC) 20 mg capsule levothyroxine (LEVOXYL) 50 mcg tablet rosuvastatin (CRESTOR) 10 mg tablet benzonatate (TESSALON PERLE) 100 mg capsule acebutolol (SECTRAL) 200 mg capsule SUMAtriptan (IMITREX) 20 mg/actuation nasal spray albuterol HFA (VENTOLIN HFA) 90 mcg/actuation inhaler azelastine 0.1% nasal spray niacin (NIACIN) 500 mg tablet lecithin 1,000 mg chew ubidecarenone Q-10 (COENZYME Q-10) 10 mg cap polyethylene glycol 3350 (MIRALAX ORAL) glucosam/chond-msm1/C/castro/bor ([id number] COMPLEX ORAL) magnesium glycinate (MAG GLYCINATE ORAL) pantoprazole DR (PROTONIX) 20 mg tablet VIT D3-FOLIC [id number]-B12 ORAL GAMMA-AMINOBUTYRIC ACID, BULK, MISC Review of Systems CONSTITUTIONAL: No fevers, chills night sweats, unintended weight loss CARDIOVASCULAR: No chest pain, dyspnea, palpitations, orthopnea, PND, ankle edema. PULM: No dyspnea, unexplained cough. GI: No dysphagia/odynophagia, problematic reflux, constipation, diarrhea, changes in stool habits, hematochezia, melena. : No new urinary complaints, including dysuria, gross hematuria or pyuria. NEURO: No new balance problems, peripheral weakness/paresthesias or numbness of concern. Physical Exam BP 112/72 (BP Site: Left Arm) Pulse 70 Wt 61.5 kg (135 lb 9.6 oz) SpO2 99% BMI 23.28 kg/m? General appearance: Well appearing, alert, in no acute distress, well nourished. Skin: Skin color, texture, turgor normal, no suspicious rashes or lesions Head: Normocephalic, no masses, lesions, tenderness or abnormalities Eyes: Anicteric sclera. Pupils are equally round and reactive to light. Extraocular movements are intact. Lungs: Lungs clear to auscultation. No wheezing, rhonchi, rales Heart: RRR without murmur, gallop, or rubs. Extremities: No deformities, edema, skin discoloration, clubbing or cyanosis. Good capillary refill. ASSESSMENT/PLAN: 1. Mixed hyperlipidemia - ICD9: 272.2, ICD10: E78.2 (primary diagnosis) - Controlled - Counseled on healthy diet and regular exercise 2. Encounter for screening mammogram for breast cancer - ICD9: V76.12, ICD10: Z12.31 - Encouraged monthly BSE - Follow up for annual exam in one year. - RAF SCREENING W JAIRO 3. Irregular heart rate - ICD9: 427.9, ICD10: I49.9 Cont the atenolol. 4. Hypothyroidism, unspecified type - ICD9: 244.9, ICD10: E03.9 - Instructed patient on importance of taking on an empty stomach either first thing in the morning or at bedtime. 5. 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 Health Maintenance HEPATITIS C SCREENING DTAP,TDAP,TD(1 - Tdap) PNEUMOCOCCAL: 65+(2 - PCV) COLORECTAL CANCER SCREENING ADVANCE DIRECTIVE DISCUSSION DEPRESSION ASSESSMENT SHINGRIX VACCINE(2 of 2) HPI Reviewed her labs which are normal. Discussed her husbands condition with her. Spent times discussing the Alzheimers dementia diagnosisfor her . Hypothyroidism. She is doing well on her current dose of Synthroid. Denies fatigue, cold intolerance and swelling in feet. TSH recently checked and normal. HPL: Reviewed test results with patient , takes medications regularly , does not report side effects. Conscious to avoid red meats, full fat dairy and its by products. Exercising 3 to 5 times a week. HTN: BP controlled today. Checks BP at home. Compliant with medications. Denies any chest pain, palpitations, SOB, swelling in the feet. Careful with diet to avoid salt, trying to eat more fruits andvegetables, exercises regularly She will get me a copy of her living will and advance directives. Had EGD in March of 2024: and needs an repeat in a years time. No problem-specific Assessment & Plan notes found for this encounter. PAST MEDICAL HISTORY Diagnosis Date Disorder of thyroid Irregular heart beat Migraine, intractable No past surgical history on file. No family history on file. Social History Tobacco Use Smoking status: Never Smokeless tobacco: Never Vaping Use Vaping status: Never Used Substance Use Topics Alcohol use: Yes Alcohol/week: 1.0 standard drink of alcohol Types: 1 Glasses of Wine (5oz) per week Comment: at dinner Drug use: Never Past medical history, appointments, medications, allergies reviewed. Pertinent Lab/Diagnostic Studies are reviewed and discussed today Current Outpatient Medications: omeprazole (PRILOSEC) 20 mg capsule levothyroxine (LEVOXYL) 50 mcg tablet rosuvastatin (CRESTOR) 10 mg tablet benzonatate (TESSALON PERLE) 100 mg capsule acebutolol (SECTRAL) 200 mg capsule SUMAtriptan (IMITREX) 20 mg/actuation nasal spray albuterol HFA (VENTOLIN HFA) 90 mcg/actuation inhaler azelastine 0.1% nasal spray niacin (NIACIN) 500 mg tablet lecithin 1,000 mg chew ubidecarenone Q-10 (COENZYME Q-10) 10 mg cap polyethylene glycol 3350 (MIRALAX ORAL) glucosam/chond-msm1/C/castro/bor ([id number] COMPLEX ORAL) magnesium glycinate (MAG GLYCINATE ORAL) pantoprazole DR (PROTONIX) 20 mg tablet VIT D3-FOLIC [id number]-[id number]-B12 ORAL GAMMA-AMINOBUTYRIC ACID, BULK, MISC Review of Systems CONSTITUTIONAL: No fevers, chills night sweats, unintended weight loss CARDIOVASCULAR: No chest pain, dyspnea, palpitations, orthopnea, PND, ankle edema. PULM: No dyspnea, unexplained cough. GI: No dysphagia/odynophagia, problematic reflux, constipation, diarrhea, changes in stool habits, hematochezia, melena. : No new urinary complaints, including dysuria, gross hematuria or pyuria. NEURO: No new balance problems, peripheral weakness/paresthesias or numbness of concern. Physical Exam BP 112/72 (BP Site: Left Arm) Pulse 70 Wt 61.5 kg (135 lb 9.6 oz) SpO2 99% BMI 23.28 kg/m General appearance: Well appearing, alert, in no acute distress, well nourished. Skin: Skin color, texture, turgor normal, no suspicious rashes or lesions Head: Normocephalic, no masses, lesions, tenderness or abnormalities Eyes: Anicteric sclera. Pupils are equally round and reactive to light. Extraocular movements are intact. Lungs: Lungs clear to auscultation. No wheezing, rhonchi, rales Heart: RRR without murmur, gallop, or rubs. Extremities: No deformities, edema, skin discoloration, clubbing or cyanosis. Good capillary refill. ASSESSMENT/PLAN: 1. Mixed hyperlipidemia - ICD9: 272.2, ICD10: E78.2 (primary diagnosis) - Controlled - Counseled on healthy diet and regular exercise 2. Encounter for screening mammogram for breast cancer - ICD9: V76.12, ICD10: Z12.31 - Encouraged monthly BSE - Follow up for annual exam in one year. - RAF SCREENING W JAIRO 3. Irregular heart rate - ICD9: 427.9, ICD10: I49.9 Cont the atenolol. 4. Hypothyroidism, unspecified type - ICD9: 244.9, ICD10: E03.9 - Instructed patient on importance of taking on an empty stomach either first thing in the morning or at bedtime. 5. 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 Susu Wright [facility] Miscellaneous Notes* Telephone Encounter - Susu Wright MA - 03/21/2024 9:39 AM EDT Labs pended, please file if agreeable. Susu Wright MA [facility] Evaluation note* Diagnosis Hypothyroidism, unspecified type- Primary Stage 3a chronic kidney disease (HCC) Mixed hyperlipidemia Iron deficiency Iron deficiency anemia, unspecified [facility] encounter [facility] History of Present illness Narrative* Kostas Talbert, PT - 03/15/2024 10:42 AM EDT Episode Visit Count: 14 Therapist That Will Accept/Oversee The Plan Of Care: Kostas Talbert, PT Start of Care Date: 11/14/23 Onset Date: 08/16/23 Plan of Care Certification Date: 01/23/24 Next Certification Due Date: 03/19/24 Patient Identified by Name and Date of : Yes REHABILITATION AND SPORTS THERAPY PHYSICAL THERAPY DISCONTINUANCE OF CARE PLAN OF CARE UPDATE: Assessment: Ursula Lane is discontinued from Physical Therapy services due to goal achievement.. Patient was seen for 14 visits from Start of Care Date: 11/14/23 to 03/15/2024 and treatment included: Therapeutic exercise, Manual therapy, and Self-skilled nursing management. Updated: 12/14/23, 01/23/24 & 03/15/24. Goals for Episode of Care: created on 11/14/23 through 03/21/24 Patient reported outcome of physical function will increase T-score by a minimum 5 points. (MET) [place] in home exercise program.(MET) Patient will decrease pain rating by 2 points to meet minimal clinical important difference for numeric pain rating scale. (MET) Patient will increase active ROM of RIGHT upper extremity to WNL/equal to the LEFT upper extremity to allow pt to to improve performance of ADLs. (MET) Patient will demonstrate increase in RIGHT upper extremity strength to 5/5 during manual muscle testing in order to improve function for basic self-care tasks, home management tasks, light to moderate functional tasks, and prior functional tasks. (MET) Perform use of RIGHT upper extremity at shoulder level with decreased report of symptoms/pain in 8 weeks. Extended till 03/19/24. (MET) Perform reaching (out/up/across), lifting, sleeping, and all self care without pain. (MET) Improve R Scapular Winging Position. (Partially MET) Patient Goals: Alleviate as much pain as she probably can, get pain manageable; be able to canoe this summer. (MET) SUBJECTIVE: Patient reports stiff bout of neck stiffness on the R for the past week; reports woke up with it no injury. Feeling better today, not stiff and painful like it was. R Shoulder continues to feel better, was able to reach and clean car windows with no repercussions per patient. Muscles inlateral shoulder are still a little soreness however not as much pain, also notes doing activities doesn't make her "pay the next day". States progress overall and happy about it. Pain: Pain Pain Level: 2 Pain Location: Shoulder - Right Description: Aching, Dull Post Treatment Pain Post Treatment Pain Level: Better Post Treatment Pain Location: Neck - Right PROMIS Scales 02/19/2024 02/18/2024 01/10/2024 Higher is Better Phys Func - Score 49 (within normal limits) 50 (within normal limits) Phys Func - Percentile 46 50 Self-Eff Symptom - Score 54 (Average) 50 (Average) Self-Eff Symptom - Percentile 66 50 T-scores: mean of general population = 50. 5 points is clinically meaningfully difference Percentiles provide an indication of how the patient's score ranks in relation to the general population. Higher percentile rankings indicate better function/quality of life. 50th percentile is the average of the general population and indicates half of respondents had a worse score. OBJECTIVE MEASURES WITH LEVEL OF FUNCTION: Better Cervical ROM following MT today... Posture / Alignment Posture: (Improved from prior eval, more awareness.) Shoulder Observations R Shoulder Palpation Tenderness Comments: Middle Delt. Spine Observations R Cervical Spine Palpation Tenderness: Upper trapezius, Paraspinals UE AROM R UE AROM: Grossly WNL & equal Bilat. UE and Cervical Strength R UE Strength: Grossly 5/5 TREATMENT: Therapeutic Exercise: 1: Re-assessment per above, discussion on patient's progress overall and discussed independence with exercises at home. 2: Discussed progression of exercises, how to progress, parameters, how to know when it is too much load, proper soreness from exercises vs. flare up. 3: Re-discussed HEP and completion. Skilled Intervention: Patient was educated in proper exercise technique and purpose for exercises. Skilled judgment was used in selection of appropriate interventions. Patient education as noted. Manual Therapy: 1: IaSTM & Soft Tisse Mobs with hands to R UT and Paraspinals: Push to tolerance. Dry Needling: (4) 25 mm needle to R C/S Paraspinals with winding and pistoning; (4) 30mm needle to R Rhomboids with winding & pistoning. (pt consent gained, 8 needles in, 8 needles out) Skilled Intervention: Manual skills to improve joint mobility, ROM, and decrease pain. Utilized anatomy knowledge of the therapist, and assessment of patient's response to intervention. Billing Therapeutic Exercise Treatment Minutes: 15 Manual TherapyTreatment Minutes: 25 Skilled Treatment Time Minutes (timed and untimed codes): 40 Total Session Time (minutes): 40 Session Start Time : 1045 Session Stop Time : 1125 Kostas Talbert, PT documented in this encounterCity [facility]09-[facility]24 History of Present illness Narrative* Kostas Talbert, PT - 03/06/2024 10:39 AM EDT Program_ID:[id number] Access Code: [email or web address] URL: [email or web address] Date: 03-06-2024 Prepared By: Kostas Talbert Program Notes Exercises - Supine Shoulder Flexion Extension AAROM with Dowel - 2-3 x daily - 7 x weekly - 2-3 sets - 10-15 reps - Standing Shoulder Row with Anchored Resistance - 2 x daily - 5-6 x weekly - 2 sets - 10-12 reps - Single Arm Serratus Punches in Supine with Dumbbell - 2 x daily - 5-6 x weekly - 2 sets - 10 reps - Standing Single Arm Elbow Flexion with Resistance - 2 x daily - 5-6 x weekly - 2 sets - 10 reps - Single Arm Scaption with Dumbbell - 2 x daily - 5-6 x weekly - 2-3 sets - 8-12 reps - Shoulder Flexion Serratus Activation with Resistance - 1-2 x daily - 5-7 x weekly - 2 sets - 8-12 reps - Standing Bicep Curls Supinated with Dumbbells - 2 x daily - 5-7 x weekly - 2 sets - 10 reps - Standing Single Arm Bicep Curls Neutral with Dumbbell - 2 x daily - 5-7 x weekly - 2 sets - 6-8 reps - Standing Pronated Elbow Flexion with Dumbbell - 2 x daily - 5-7 x weekly - 2 sets - 6-8 reps - Seated Scapular Retraction - 2 x daily - 7 x weekly - 2 sets - 10 reps - Seated Cervical Sidebending AROM - 2 x daily - 7 x weekly - 2 sets - 10 reps - Seated Cervical Rotation AROM - 2 x daily - 7 x weekly - 2 sets - 10 reps - Seated Cervical Retraction - 2 x daily - 5-7 x weekly - 2 sets - 10 reps - Shoulder External Rotation with Anchored Resistance - 2 x daily - 5-7 x weekly - 2 sets - 8-15 reps - Standing Single Arm Shoulder Abduction - Palm Down - 2 x daily - 5-7 x weekly - 2 sets - 8-15 reps - Standing Single Arm Shoulder Abduction with Dumbbell - Palm Down - 1-2 x daily - 5-7 x weekly - 3-5 sets - reps * Kostas Talbert, PT - 03/06/2024 10:01 AM EDT Episode Visit Count: 13 Therapist That Will Accept/Oversee The Plan Of Care: Kostas Talbert PT Start of Care Date: 11/14/23 Onset Date: 08/16/23 Plan of Care Certification Date: 01/23/24 Next Certification Due Date: 03/19/24 Patient Identified by Name and Date of : Yes REHABILITATION AND SPORTS THERAPY PHYSICAL THERAPY TREATMENT NOTE ASSESSMENT: Ursula Lane tolerated the session with expected muscle soreness and no issues. She demonstrated improvements in soft tissue restrictions in the R Deltoid region. The patient will continue to benefit from ongoing skilled physical therapy to progress toward set goals. PLAN FOR NEXT VISIT: UT. SUBJECTIVE: Patient reports "doing a lot better, notes improvement". Still having trouble with deltoid area being sore, not as bad as previous. Notes no trouble canoeing/paddling did not bother her RUE. Reports " I can do a lot more than I Use to". Pain: Pain Pain Level: 1 Pain Location: Shoulder - Right Description: Dull Post Treatment Pain Post Treatment Pain Level: Better Post Treatment Pain Location: Shoulder - Right OBJECTIVE MEASURES WITH LEVEL OF FUNCTION: Tenderness and trigger points upon palpation to mid & post R Deltoid area. TREATMENT: Therapeutic Exercise: 1: *R ER: 1x10, PinkTB. 2: *R ABD Palm Down, no weight: 1x10. 3: *R ABD Thumb up, no weight: 1x10. 4: *R ABD 90deg Iso Holds: [id number]" with 2#. 5: Discussed HEP in detail, new handouts added on new exercises, discussed parameters. Skilled Intervention: Patient was educated in proper exercise technique and purpose for exercises. Reviewed and educated patient on additions/changes for home exercise program as above (*). Skilled judgment was used in selection of appropriate interventions. Provided written instruction for home exercise program to facilitate proper performance and compliance. Correct performance of therapeutic exercises was facilitated with verbal cuing. Manual Therapy: 1: IaSTM & Soft tissue mobilization with hands: R Middle and Posterior Delt: Push to tolerance. 2: TPR to R Middle Delt: x15, Push to tolerance. Dry Needling: (6) 30 mm needle to R Middle Deltoid with winding throughout (pt consent gained, 6 needles in, 6 needles out) Skilled Intervention: Manual skills to improve joint mobility, ROM, and decrease pain. Utilized anatomy knowledge of the therapist, and assessment of patient's response to intervention. Billing Therapeutic Exercise Treatment Minutes: 16 Manual TherapyTreatment Minutes: 28 Skilled Treatment Time Minutes (timed and untimed codes): 44 Total Session Time (minutes): 44 Session Start Time : 1000 Session Stop Time : 1044 Kostas Talbert, PT documented in this encounterCity [facility]08-19-[facility]24 History of Present illness Narrative* Kostas Talbert, PT - 02/20/2024 11:29 AM EDT Episode Visit Count: 12 Therapist That Will Accept/Oversee The Plan Of Care: Kostas Talbert, PT Start of Care Date: 11/14/23 Onset Date: 08/16/23 Plan of Care Certification Date: 01/23/24 Next Certification Due Date: 03/19/24 Patient Identified by Name and Date of : Yes REHABILITATION AND SPORTS THERAPY PHYSICAL THERAPY TREATMENT NOTE ASSESSMENT: Ursula Lane tolerated the session with expected muscle soreness. She demonstrated decreased symptoms in the R Lateral Arm. The patient will continue to benefit from ongoing skilled physical therapy to progress toward set goals. PLAN FOR NEXT VISIT: Assess response to DN & soft tissue of R Delt; progress OH exercises, tricep push down. SUBJECTIVE: Patient is fairly well; was doing a lot of overhead scrubbing a tent with the RUE, hurts today from that. Pain: Pain Pain Level: 3 Pain Location: Shoulder - Right Description: Sore Post Treatment Pain Post Treatment Pain Level: Better Post Treatment Pain Location: Shoulder - Right Post Treatment Symptoms: R Arm feels more loose per patient. OBJECTIVE MEASURES WITH LEVEL OF FUNCTION: Restricted throughout R Middle Deltoid. TTP R Triceps Musculature. TREATMENT: Therapeutic Exercise: 1: Lat Pulldowns: 3x12, 1 Plate/4Rounds. 2: R Tricep Ext: 3x10, 1 Plate/1Round. 3: R Overhead R Shoulderhead Stretch: 3x30". 4: *Discussed self stm to R Deltoid with tennis ball using L Hand, as well as using wall vs. irritated soft tissue. Discussed how to complete and parameters. 5: *Discussed POC with patient. Skilled Intervention: Patient was educated in proper exercise technique and purpose for exercises. Skilled judgment was used in selection of appropriate interventions. Correct performance of therapeutic exercises was facilitated with verbal and visual cuing. Manual Therapy: 1: IaSTM & Soft tissue mobilization with hands: R Middle and Posterior Delt: Push to tolerance. 2: TPR to R Middle Delt: x15, Push to tolerance. Dry Needling: (6) 30 mm needle to R Middle Deltoid with winding throughout (pt consent gained, 6 needles in, 6 needles out) Skilled Intervention: Manual skills to improve joint mobility, ROM, and decrease pain. Utilized anatomy knowledge of the therapist, and assessment of patient's response to intervention. Billing Therapeutic Exercise Treatment Minutes: 16 Manual TherapyTreatment Minutes: 28 Skilled Treatment Time Minutes (timed and untimed codes): 44 Total Session Time (minutes): 44 Session Start Time : 1130 Session Stop Time : 1214 Kostas Talbert PT documented in this encounterCity [facility]08-[facility]24 History of Present illness Narrative* Kostas Talbert, PT - 02/06/2024 11:30 AM EDT Episode Visit Count: 11 Therapist That Will Accept/Oversee The Plan Of Care: Kostas Talbert PT Start of Care Date: 11/14/23 Onset Date: 08/16/23 Plan of Care Certification Date: 01/23/24 Next Certification Due Date: 03/19/24 Patient Identified by Name and Date of : Yes REHABILITATION AND SPORTS THERAPY PHYSICAL THERAPY TREATMENT NOTE ASSESSMENT: Ursula Lane tolerated the session with decreased symptoms and expected muscle soreness. She demonstrated difficulty with resisted A's due to pain - discontinued for home. The patient will continue to benefit from ongoing skilled physical therapy to progress toward set goals. PLAN FOR NEXT VISIT: Soft tissue mob for RC; RC interval stretch; OH strengthening. SUBJECTIVE: Patient reports she is feeling better overall; R shoulder continues to improve however light consistent soreness is still there. Feels stronger overall. Pain: Pain Pain Level: 3 Pain Location: Shoulder - Right Description: Sore Post Treatment Pain Post Treatment Pain Location: Shoulder - Right Post Treatment Pain Description: Sore OBJECTIVE MEASURES WITH LEVEL OF FUNCTION: TTP R Supra & infraspinatus, as well as RC tendon at GT attachment. TREATMENT: Therapeutic Exercise: 1: UBE: 2Min Fwd, 2 Min Bwd. (Discussed HEP and subjective.) 2: Sidelying R Flexion Raises OH: 3x10. 3: Sidelying R ER Iso Holds: 5x30". (Verbal & tactile cue for increased squeeze at infra.) 4: "A" Walkouts: 2x10, Pinktb. 5: R ER Walkouts: 1x10, OTB. Skilled Intervention: Patient was educated in proper exercise technique and purpose for exercises. Skilled judgment was used in selection of appropriate interventions. Correct performance of therapeutic exercises was facilitated with verbal and tactile cuing. Manual Therapy: 1: IaSTM & Soft tissue mobilization with hands: R Supraspinatus and Infraspinatus: Push to tolerance. 2: Active Release R Infra: Push to tolerance. Skilled Intervention: Manual skills to improve joint mobility, ROM, and decrease pain. Utilized anatomy knowledge of the therapist, and assessment of patient's response to intervention. Billing Therapeutic Exercise Treatment Minutes: 23 Manual TherapyTreatment Minutes: 17 Skilled Treatment Time Minutes (timed and untimed codes): 40 Total Session Time (minutes): 40 Session Start Time : 1130 Session Stop Time : 1210 Kostas Talbert PT documented in this encounterCity [facility]07-22-[facility]24 History of Present illness Narrative* Kostas Talbert PT - 01/23/2024 10:50 AM EDT Images from the original note were not included. Episode Visit Count: 10 Therapist That Will Accept/Oversee The Plan Of Care: Kostas Talbert PT Start of Care Date: 11/14/23 Onset Date: 08/16/23 Plan of Care Certification Date: 01/23/24 Next Certification Due Date: 03/19/24 Patient Identified by Name and Date of : Yes REHABILITATION AND SPORTS THERAPY PHYSICAL THERAPY PROGRESS REPORT PLAN OF CARE UPDATE: Assessment: Ursula Lane demonstrates improvements in decreased severity of the R Shoulder pain and the sharp concordant pain she was experiencing, lifting to shoulder level, mobility and ROM, use of the arm at shoulder level and above without weight.Patient reports a weakness and soreness in the involved area. Soreness is more with movement and use. Notes believing Dry Needling helped for the R UT pain.Recent cold has produced general muscle aching and soreness, "set me back" per patient. She has progressed toward goals. Patient continues to present with impairments in ADL's, overall function, strength, symptom management, and tissue tenderness that interfere with ("Lifting Heavy"; carrying with both UEs and RUE; moderate exertion/physical activites at home.) . Current prognosis is Good due to: current objective clinical presentation, good overall health status, positive past response to therapy, within-session changes, good support system/ coping skills . She will benefit from continued skilled therapy services to meet the updated goals for this plan of care as noted below. Updated: 12/14/23, 01/23/24. Goals for Episode of Care: created on 11/14/23 through 03/21/24 Patient reported outcome of physical function will increase T-score by a minimum 5 points. (Currently MET) [place] in home exercise program.(Currently MET) Patient will decrease pain rating by 2 points to meet minimal clinical important difference for numeric pain rating scale. (Progressing) Patient will increase active ROM of RIGHT upper extremity to WNL/equal to the LEFT upper extremity to allow pt to to improve performance of ADLs. (Progressing) Patient will demonstrate increase in RIGHT upper extremity strength to 5/5 during manual muscle testing in order to improve function for basic self-care tasks, home management tasks, light to moderate functional tasks, and prior functional tasks. (Progressing) Perform use of RIGHT upper extremity at shoulder level with decreased report of symptoms/pain in 8 weeks. Extended till 03/19/24. (Progressing) Perform reaching (out/up/across), lifting, sleeping, and all self care without pain. (Progressing) Improve R Scapular Winging Position. (Progressing) Patient Goals: Alleviate as much pain as she probably can, get pain manageable; be able to canoe this summer. (Progressing) Planned Interventions, Frequency, and Duration: 1x every other week, 8 weeks Total Number of Visits Planned: 4 Patient to be seen for Therapeutic exercise (72069), Neuromuscular re-education ([id number]), Manual therapy (19488), Therapeutic activities (51795), Self-skilled nursing management ([id number]), Patient/Family/Caregiver Education, Body Mechanics Training PLAN FOR NEXT VISIT: Soft tissue work for supra and infraspinatus; OH strengthening, retraction progressions. SUBJECTIVE: Patient reports having a fever/cold the last week and still having it; reports she has no energy and exercises/physical activity are making her more sore/worn out. Has gross general muscle aching. Patient reports not as much sharp pain in the R Shoulder, however continued soreness and weakness. Reports 80% better. Functional Limitations: ("Lifting Heavy"; carrying with both UEs and RUE; moderate exertion/physical activites at home.) Pain: Pain Pain Level: 2 Pain Location: Shoulder - Right Description: Sore PROMIS Scales 01/10/2024 12/13/2023 11/12/2023 Higher is Better Phys Func - Score 50 (within normal limits) 43 (mild dysfunction) 43 (mild dysfunction) Phys Func - Percentile 50 24 24 Self-Eff Symptom - Score 50 (Average) 42 (Average) 46 (Average) Self-Eff Symptom - Percentile 50 21 34 T-scores: mean of general population = 50. 5 points is clinically meaningfully difference Percentiles provide an indication of how the patient's score ranks in relation to the general population. Higher percentile rankings indicate better function/quality of life. 50th percentile is the average of the general population and indicates half of respondents had a worse score. OBJECTIVE MEASURES WITH LEVEL OF FUNCTION: Shoulder Observations R Shoulder Palpation Tenderness: Supraspinatus, Infraspinatus R Shoulder Palpation Tenderness Comments: Prox Biceps Tendon. Spine Observations R Cervical Spine Palpation Tenderness: Upper trapezius UE AROM R Shoulder Flex: 175 Degrees R Shoulder ABduction: 175 Degrees R Shoulder Internal Rotation (Functional): T10 with Thumb R Shoulder External Rotation (Functional): T4 L Shoulder Internal Rotation (Functional): T6 with Thumb. L Shoulder External Rotation (Functional): T6 UE PROM R UE PROM: WNL UE and Cervical Strength R Shoulder Flexion: 4+/5 R Shoulder Abduction (C5): 4+/5 R Shoulder Internal Rotation: 4+/5 R Shoulder External Rotation: 4+/5 R Shoulder Horizontal ADduction: 5/5 R Middle Trapezius: 4/5 R Lower Trapezius: 4/5 R Elbow Extension (C7): 5/5 R Elbow Flexion (C6): 5/5 TREATMENT: Therapeutic Exercise: 1: Re-assessment and objectives taken per above, discussion on patient's progress, discussion on POC moving forward and treatment options/progressions that will be upcoming. 2: *Deferred exercises completed today due to her cold/fatigue; patient feels comfortable completing her HEP at home. Answered questions about HEP and dicussed not using weights during her sickness, due to already having general muscle aching to decrease load. Will reattempt new progressions next visit. Skilled Intervention: Patient was educated in proper exercise technique and purpose for exercises. Reviewed and educated patient on additions/changes for home exercise program as above (*). Skilled judgment was used in selection of appropriate interventions. Provided written instruction for home exercise program to facilitate proper performance and compliance. Correct performance of therapeutic exercises was facilitated with verbal, visual, and tactile cuing. Billing Therapeutic Exercise Treatment Minutes: 32 Skilled Treatment Time Minutes (timed and untimed codes): 32 Total Session Time (minutes): 32 Session Start Time : 1046 Session Stop Time : 1118 Kostas Talbert PT documented in this encounterCity [facility]07-12-[facility] History of Present illness Narrative* Kostas Talbert PT - 01/13/2024 9:21 AM EDT Episode Visit Count: 9 Therapist That Will Accept/Oversee The Plan Of Care: Kostas Talbert PT Start of Care Date: 11/14/23 Onset Date: 08/16/23 Plan of Care Certification Date: 12/19/23 Next Certification Due Date: 01/23/24 Patient Identified by Name and Date of : Yes REHABILITATION AND SPORTS THERAPY PHYSICAL THERAPY TREATMENT NOTE ASSESSMENT: Ursula Lane tolerated the session with decreased symptoms and expected muscle soreness. She demonstrated challenged by arrow walkouts. The patient will continue to benefit from ongoing skilled physical therapy to progress toward set goals. PLAN FOR NEXT VISIT: Retraction progressions. SUBJECTIVE: Patient reports increased soreness following DN, started easing up a.m. however still some soreness today. Not sure if gotten relief from DN yet. Got back to regular HEP last night. Pain: Pain Pain Level: 3 Pain Location: Shoulder - Right (Upper Trap.) Description: Sore Frequency: Intermittent Post Treatment Pain Post Treatment Pain Location: Shoulder - Right Post Treatment Pain Description: Sore OBJECTIVE MEASURES WITH LEVEL OF FUNCTION: Tenderness in RUT. TREATMENT: Therapeutic Exercise: 1: "A" Resisted Bands: 3x10, Pinktb 2: Shoulder Extensions: 3x10, GTB. 3: Rows: 3x10, GTB. 4: "A" Resisted Band Walkouts: 3x6, PinkTB. 5: Thoracic Rows: 3x8 ea, PinkTB. Skilled Intervention: Patient was educated in proper exercise technique and purpose for exercises. Skilled judgment was used in selection of appropriate interventions. Correct performance of therapeutic exercises was facilitated with verbal, visual, and tactile cuing. Manual Therapy: 1: IaSTM: R UT, Mid-Trap, Rhomboids: Push to tolerance. Skilled Intervention: Manual skills to improve joint mobility, ROM, and decrease pain. Utilized anatomy knowledge of the therapist, and assessment of patient's response to intervention. Billing Therapeutic Exercise Treatment Minutes: 23 Manual TherapyTreatment Minutes: 17 Skilled Treatment Time Minutes (timed and untimed codes): 40 Total Session Time (minutes): 40 Session Start Time : 918 Session Stop Time : 958 Kostas Talbert PT [facility] History of Present illness Narrative* Kostas Talbert PT - 01/10/2024 9:57 AM EDT Program_ID:[id number] Access Code: [email or web address] URL: [email or web address] Date: 01-10-2024 Prepared By: Kostas Talbert Program Notes Exercises - Roberson's Walk - 2 x daily - 1 x weekly - 2 sets - reps - Standing Shoulder Shrug Circles AROM Backward - 2 x daily - 1 x weekly - 2 sets - 10 reps - Standing Single Arm Shoulder Shrug - 2 x daily - 1 x weekly - 2 sets - 10 reps - Seated Cervical Sidebending Stretch - 2 x daily - 1 x weekly - 3 sets - reps * Kostas Talbert PT - 01/10/2024 9:11 AM EDT Episode Visit Count: 8 Therapist That Will Accept/Oversee The Plan Of Care: Kostas Talbert PT Start of Care Date: 11/14/23 Onset Date: 08/16/23 Plan of Care Certification Date: 12/19/23 Next Certification Due Date: 01/23/24 Patient Identified by Name and Date of : Yes REHABILITATION AND SPORTS THERAPY PHYSICAL THERAPY TREATMENT NOTE ASSESSMENT: Ursula Lane tolerated the session with expected muscle soreness and no issues. She demonstrated increased soreness following DN, good form with exercises. The patient will continue tobenefit from ongoing skilled physical therapy to progress toward set goals. PLAN FOR NEXT VISIT: Assess response to DN; progress retraction and scapular control exercises. SUBJECTIVE: Patient wondering if she is going to get much better, noting pain, weakness and endurance issues persist. States feels at a plateau. Pain: Pain Pain Level: 3 Pain Location: Shoulder - Right (Points to UT.) Description: Aching, Sore Frequency: Intermittent Post Treatment Pain Post Treatment Pain Location: Shoulder - Right Post Treatment Symptoms: Increased soreness in RUT following DN. OBJECTIVE MEASURES WITH LEVEL OF FUNCTION: TTP RUT mid muscle belly. TREATMENT: Therapeutic Exercise: 1: R Scaption Raise: 2x10.. 2: R UT Stretch: 3x30". 3: R Unilateral Shoulder Bwd Rolls: 2x10. 4: "A" Resisted Bands: 2x10, Pinktb 5: R Roberson Carries: 2 Laps of 60 feet, 10#db. 6: R Unilateral Shrugs: 2x10. 7: *Educated patient on stretch/mobility/activation exercises to complete tonight following DN session. Discussed completion, handout provided and went over. Skilled Intervention: Patient was educated in proper exercise technique and purpose for exercises. Reviewed and educated patient on additions/changes for home exercise program as above (*). Skilled judgment was used in selection of appropriate interventions. Provided written instruction for home exercise program to facilitate proper performance and compliance. Correct performance of therapeutic exercises was facilitated with verbal, visual, and tactile cuing. Patient education as noted. Manual Therapy: 1: STM: With hands to R UT, Push to tolerance. 2: *Patient education on purpose/rationale, precautions, safety, and risks regarding dry needling. Dry Needling: (1) 40 mm needle to RUT with pistoning and fanning (pt consent gained, 1 needle in, 1needle out) Skilled Intervention: Manual skills to improve joint mobility, ROM, and decrease pain. Utilized anatomy knowledge of the therapist, and assessment of patient's response to intervention. Billing Therapeutic Exercise Treatment Minutes: 31 Manual TherapyTreatment Minutes: 10 Skilled Treatment Time Minutes (timed and untimed codes): 41 Total Session Time (minutes): 41 Session Start Time : 918 Session Stop Time : 999 Kostas Talbert, PT documented in this [facility]City [facility] Telephone encounter Note * Telephone Encounter - Yamilka Stringer RN - 01/03/2024 9:22 AM EDT The patient has been identified by name and date of : Yes Caregiver verified no other encounters exist for this prescription request: Yes Caregiver confirmed with patient/requestor that no other refills are due, in the near future, with this provider at this time: Yes The last office visit in the department: 10/24/2023 Does the patient have a future office visit with this provider/department: Yes 04/26/2024 Requested Prescriptions Pending Prescriptions Disp Refills rosuvastatin (CRESTOR) 10 mg tablet 90 tablet 3 Sig: Take 1 tablet by mouth once daily. Yamilka Stringer RN January 03, 2024 9:22 AM [facility] Miscellaneous Notes* Telephone Encounter - Yamilka Stringer RN - 01/03/2024 9:22 AM EDT The patient has been identified by name and date of : Yes Caregiver verified no other encounters exist for this prescription request: Yes Caregiver confirmed with patient/requestor that no other refills are due, in the near future, with this provider at this time: Yes The last office visit in the department: 10/24/2023 Does the patient have a future office visit with this provider/department: Yes 04/26/2024 Requested Prescriptions Pending Prescriptions Disp Refills rosuvastatin (CRESTOR) 10 mg tablet 90 tablet 3 Sig: Take 1 tablet by mouth once daily. Yamilka Stringer RN January 03, 2024 9:22 AM documented in this encounterCity [facility]07-02-[facility]24 History of Present illness Narrative* Kostas Talbert, PT - 01/03/2024 9:07 AM EDT Program_ID:[id number] Access Code: [email or web address] URL: [email or web address] Date: 01-03-2024 Prepared By: Kostas Talbert Program Notes Exercises - Supine Shoulder Flexion Extension AAROM with Dowel - 2-3 x daily - 7 x weekly - 2-3 sets - 10-15 reps - Standing Shoulder Row with Anchored Resistance - 2 x daily - 5-6 x weekly - 2 sets - 10-12 reps - Single Arm Serratus Punches in Supine with Dumbbell - 2 x daily - 5-6 x weekly - 2 sets - 10 reps - Standing Single Arm Elbow Flexion with Resistance - 2 x daily - 5-6 x weekly - 2 sets - 10 reps - Single Arm Scaption with Dumbbell - 2 x daily - 5-6 x weekly - 2-3 sets - 8-12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 Exercises - Supine Shoulder Flexion Extension AAROM with Dowel - 2-3 x daily - 7 x weekly - 2-3 sets - 10-15 reps - Seated Scapular Retraction - 2 x daily - 7 x weekly - 2 sets - 10 reps - Isometric Shoulder Flexion at Wall - 2 x daily - 5-6 x weekly - 2 sets - 10 reps - Isometric Shoulder Extension at Wall - 2 x daily - 5-6 x weekly - 2 sets - 10 reps - Standing Shoulder Row with Anchored Resistance - 2 x daily - 5-6 x weekly - 2 sets - 10-12 reps - Standing Bent Over Single Arm Scapular Row with Table Support - 2 x daily - 5-6 x weekly - 2 sets - 10-12 reps - Single Arm Serratus Punches in Supine with Dumbbell - 2 x daily - 5-6 x weekly - 2 sets - 10 reps * Kostas Talbert, PT - 11/22/2023 11:16 AM EDT Episode Visit Count: 2 Therapist That Will Accept/Oversee The Plan Of Care: Kostas Talbert PT Start of Care Date: 11/14/23 Onset Date: 08/16/23 Plan of Care Certification Date: 11/14/23 Next Certification Due Date: 12/19/23 Patient Identified by Name and Date of : Yes REHABILITATION AND SPORTS THERAPY PHYSICAL THERAPY TREATMENT NOTE ASSESSMENT: Ursula Lane tolerated the session with expected muscle soreness. She demonstrated improvements in AAROM and tolerance to new exercises. The patient will continue to benefit from ongoing skilled physical therapy to progress toward set goals. PLAN FOR NEXT VISIT: Assess response to added exercises; push up plus. SUBJECTIVE: Patient reports slight improvement in the R Shoulder, notes the improvement in a littleless pain. Notes compliance with HEP. States squeezing the shoulder blades is hard and makes her sore. Pain: Pain Pain Level: 4 Pain Location: Shoulder - Right Description: Aching, Sore Frequency: Continuous Post Treatment Pain Post Treatment Pain Location: Shoulder - Right Post Treatment Pain Description: Sore OBJECTIVE MEASURES WITH LEVEL OF FUNCTION: UE PROM R Shoulder Flex: 150 Degrees (AAROM with Wand.) R Shoulder ABduction: 130 Degrees (Wand AAROM.) TREATMENT: Therapeutic Exercise: 1: UBE: 2Min Fwd, 2 Min Bwd. (Discussed HEP and subjective.) 2: Standing RUE ABD AAROM Wand: 1x15. 3: RUE Isometrics: IR/ER/Flex/EXT: 1x10 ea. 5-sec holds. (Not feeling ER in the right location discontinued this day forward.) 4: Standing RUE ABD AAROM Wand: 1x15. 5: *Resisted Rows: 1x10, [place] TB. 6: *Supine RUE Serratus Punch: 2x10, 1#. 7: *Bent Over RUE Row: 2x10, 1#. 8: L S/L R ER: 1x10. 9: Discussed HEP; discontinued ER & IR Iso for now; discussed additions, proper form and completion. Skilled Intervention: Patient was educated in proper exercise technique and purpose for exercises. Reviewed and educated patient on additions/changes for home exercise program as above (*). Skilled judgment was used in selection of appropriate interventions. Provided written instruction for home exercise program to facilitate proper performance and compliance. Correct performance of therapeutic exercises was facilitated with verbal, visual, and tactile cuing. Billing Therapeutic Exercise Treatment Minutes: 42 Skilled Treatment Time Minutes (timed and untimed codes): 42 Total Session Time (minutes): 42 Session Start Time : 1115 Session Stop Time : 1157 Kostas Talbert PT documented in this encounterCity [facility]-13-[facility]24 History of Present illness Narrative* Kostas Talbert PT - 11/14/2023 4:32 PM EDT Program_ID:[id number] Access Code: [email or web address] URL: [email or web address] Date: 11-14-2023 Prepared By: Kostas Talbert Program Notes Exercises - Supine Shoulder Flexion Extension AAROM with Dowel - 2-3 x daily - 7 x weekly - 2-3 sets - 10-15 reps - Seated Scapular Retraction - 2 x daily - 7 x weekly - 2 sets - 10 reps - Isometric Shoulder Flexion at Wall - 2 x daily - 5-6 x weekly - 2 sets - 10 reps - Standing Isometric Shoulder Internal Rotation at Doorway - 2 x daily - 5-6 x weekly - 2 sets - 10 reps - Standing Isometric Shoulder External Rotation with Doorway - 2 x daily - 5-6 x weekly - 2 sets - 10 reps - Isometric Shoulder Extension at Wall - 2 x daily - 5-6 x weekly - 2 sets - 10 reps * Kostas Talbert PT - 11/14/2023 3:48 PM EDT Images from the original note were not included. Episode Visit Count: 1 Therapist That Will Accept/Oversee The Plan Of Care: Kostas Talbert PT Start of Care Date: 11/14/23 Onset Date: 08/16/23 Plan of Care Certification Date: 11/14/23 Next Certification Due Date: 12/19/23 Patient Identified by Name and Date of : Yes REHABILITATION AND SPORTS THERAPY PHYSICAL THERAPY EVALUATION PLAN OF CARE: Assessment: Ursula Lane presents with chief complaint of R Shoulder Pain that interferes with use hand with arm at shoulder level, reaching overhead, sleeping, pulling, pushing, carrying, dressing, physical activities ("Anything over the head", taking shirt off, drying hair, gardening.) . She presents with impairments in ADL's, independence in exercise, joint mobility, overall function, rangeof motion, strength, symptom management, and tissue tenderness. PROMIS (Patient-Reported Outcomes Measurement Information System) scores were reviewed and identified as a rehabilitation concern. Prognosis for therapy is Good due to: current objective clinical presentation, good overall health status , acuteness of condition, positive past response to therapy, good support system/ coping skills . She will benefit from skilled therapy services to meet the goals established for this plan of care asnoted below. Goals for Episode of Care: created on 11/14/23 through 01/14/24 Patient reported outcome of physical function will increase T-score by a minimum 5 points. [place] in home exercise program. Patient will decrease pain rating by 2 points to meet minimal clinical important difference for numeric pain rating scale. Patient will increase active ROM of RIGHT upper extremity to WNL/equal to the LEFT upper extremity to allow pt to to improve performance of ADLs. Patient will demonstrate increase in RIGHT upper extremity strength to 5/5 during manual muscle testing in order to improve function for basic self-care tasks, home management tasks, light to moderate functional tasks, and prior functional tasks. Perform use of RIGHT upper extremity at shoulder level with decreased report of symptoms/pain in 8 weeks. Perform reaching (out/up/across), lifting, sleeping, and all self care without pain. Improve R Scapular Winging Position Patient Goals: Alleviate as much pain as she probably can, get pain manageable; be able to canoe this summer. Planned Interventions, Frequency, and Duration: Current Frequency: 1x/week Duration: 6 weeks Total Number of Visits Planned: 6 Planned Treatment Interventions: Therapeutic exercise (66962), Neuromuscular re- education (37290), Manual therapy (30667), Therapeutic activities (26255), Self- skilled nursing management (54691), Patient/Family/Caregiver Education, Body Mechanics Training PLAN FOR NEXT VISIT: Assess carry over of HEP; progress shoulder ROM; sidelying ER and SA activation. Patient demonstrates good understanding of plan of care and treatment. The above goals and plan of care were discussed and agreed upon by patient/family. SUBJECTIVE: Patient reports anterior/lateral R shoulder pain that started randomly 2-3 months ago; no SOFIA; was getting a referral pain down the inside of the arm (since subsided); pain is continous and movement makes pain worse. R Shoulder is gadually getting worse. Pain is worse in pm after using it all day. Painful with horz adduction per patient, other limitations below. Pt. also states chronic neck pain. Patient Goals: Alleviate as much pain as she probably can, get pain manageable; be able to canoe this summer. Functional Limitations: use hand with arm at shoulder level, reaching overhead, sleeping, pulling, pushing, carrying, dressing, physical activities ("Anything over the head", taking shirt off, dryinghair, gardening.) Prior Level of Function: Independent without limitations Relevant History Past Relevant Medical Conditions: (Stage 3 Kidney Disease, hypothyroidism, irregular heartbeat - per patient.) Employment: Retired Hobbies / Interests: Gardening, canoeing. Intake Information: Prescription present Previous Treatment: Self prescribed exercises (Tylenol PM.) Pain: Pain Pain Level: 4 Pain Location: Shoulder - Right Description: Aching Frequency: Continuous Post Treatment Pain Post Treatment Pain Level: Better Post Treatment Pain Location: Shoulder - Right Post Treatment Symptoms: Patient with decreased overhead motion pain with PT assist to upwardly rotate scapula. PROMIS Scales 11/12/2023 01/02/2023 Higher is Better Phys Func - Score 43 (mild dysfunction) 44 (mild dysfunction) Phys Func - Percentile 24 27 Self-Eff Symptom - Score 46 (Average) 44 (Average) Self-Eff Symptom - Percentile 34 27 T-scores: mean of general population = 50. 5 points is clinically meaningfully difference Percentiles provide an indication of how the patient's score ranks in relation to the general population. Higher percentile rankings indicate better function/quality of life. 50th percentile is the average of the general population and indicates half of respondents had a worse score. OBJECTIVE MEASURES WITH LEVEL OF FUNCTION: Posture / Alignment Posture: Forward head, Rounded shoulders R Shoulder Alignment: Winging scapula Shoulder Observations R Shoulder Palpation Tenderness: Supraspinatus, Infraspinatus R Shoulder Palpation Tenderness Comments: Bicipital [place], Biceps Tendon, Upper Trap. UE AROM L UE AROM: Completely Full Range without pain. R Shoulder Flex: 145 Degrees (Pain.) R Shoulder ABduction: 120 Degrees (Pain) R Shoulder Internal Rotation (Functional): L LB Beltline (W/ Thumb) R Shoulder External Rotation: 45 Degrees R Shoulder External Rotation (Functional): T2 w/ middle finger (pain) L Shoulder Flex: 180 Degrees L Shoulder ABduction: 180 Degrees L Shoulder Internal Rotation (Functional): T6 (Great range compared to R.) L Shoulder External Rotation (Functional): T6 UE PROM R UE PROM: Limited D/t pain. R Shoulder Flex: 155 Degrees R Shoulder ABduction: 130 Degrees R Shoulder Internal Rotation: 70 Degrees (From 45 Deg ABD.) R Shoulder External Rotation: 55 Degrees (From Neutral) UE and Cervical Strength Strength Tested: Shoulder All L UE Strength: Grossly 4+/5 R Shoulder Extension: 4+/5 R Shoulder Flexion: 3+/5 R Shoulder Abduction (C5): 3+/5 R Shoulder Internal Rotation: 4/5 R Shoulder External Rotation: 3+/5 R Shoulder Horizontal ABduction: 4+/5 R Shoulder Horizontal ADduction: 3+/5 (Most Painful.) R Upper Trapezius: 4+/5 R Middle Trapezius: 3+/5 R Lower Trapezius: 3+/5 R Serratus Anterior: 3+/5 R Elbow Extension (C7): 5/5 R Elbow Flexion (C6): 4+/5 Education: Education Learning/educational needs: Home exercise program, Plan of Care, Changes in Plan of Care, Body Mechanics, Posture TREATMENT: PT Treatment Interventions: Therapeutic Exercise, Self-Halfway Management Evaluation Therapeutic Exercise: 1: *Supine RUE AAROM Wand Flexion: 1x15, 2-3" hold. 2: *RUE Isometrics: IR/ER/Flex/EXT: 1x10 ea. 5-sec holds. 3: *Scapular Squeezes: 1x10 1-sec hold. 4: Discussed therapy goals, exercise purpose, HEP handout provided. Discussed exam findings. Skilled Intervention: Patient was educated in proper exercise technique and purpose for exercises. Reviewed and educated patient on additions/changes for home exercise program as above (*). Skilled judgment was used in selection of appropriate interventions. Provided written instruction for home exercise program to facilitate proper performance and compliance. Correct performance of therapeutic exercises was facilitated with verbal, visual, and tactile cuing. Self-Halfway Management: 1: *General education on radiograph findings and explained images. 2: *Patient was educated on anatomy of symptomatic area, likely source of symptoms, rationale for suggested plan of care. Pictures were used to clarify all education, especially shoulder musculature referral patterns and muscles with soft tissue tenderness. Shoulder model was used to demonstrate shoulder kinematics and how degenerative changes can lead to movement restricitions and errors. Pt wasadvised to stop any exercise or activity that causes increased pain. Skilled Intervention: Skilled judgment in the selection of proper modification for activity of daily living/home management based on clinical presentation, deficits, and needs. Reviewed patient specific diagnosis in relation to activities of daily living/home management. Activity progression based on professional judgement. Billing * Evaluation Low Complexity: 1 Unit Therapeutic Exercise Treatment Minutes: 15 Self-Care/Home Management Treatment Minutes: 10 Skilled Treatment Time Minutes (timed and untimed codes): 46 Total Session Time (minutes): 46 Session Start Time : 1546 Session Stop Time : 1632 Kostas Talbert PT [facility] Telephone encounter Note * Telephone Encounter - Perlita Ingram MA - 10/28/2023 2:57 PM EDT Patient notified, please assist in scheduling. Patient is away this so please call on Tuesday. [facility] Miscellaneous Notes* Telephone Encounter - Perlita Ingram MA - 10/28/2023 2:57 PM EDT Patient notified, please assist in scheduling. Patient is away this so please call on Tuesday. * Telephone Encounter - Jessica Concepcion APRN.CNP - 10/28/2023 1:04 PM EDT Arthritic changes on xray. I recommend physical therapy. Thank you Jessica Concepcion APRN.AUTO SERVICE WRITER documented in this encounterCity [facility]04-26-[facility]24 Telephone encounter Note * Telephone Encounter - Jessica Concepcion APRN.CNP - 10/28/2023 1:04 PM EDT Arthritic changes on xray. I recommend physical therapy. Thank you Jessica Concepcion APRN.CNP [facility] History of Present illness Narrative* Dilia Garcia RT(R) - 10/24/2023 2:20 PM EDT Radiology Service Progress Note PATIENT NAME: Ursula Lane DATE OF SERVICE: October 24, 2023 TIME: 2:16 PM PATIENT IDENTITY VERIFICATION COMPLETED USING TWO (2) IDENTIFIERS: Name and Date of confirmedby patient verbally. FALL SCREENING: Has the patient had 2 falls in the last year or 1 fall with injury or currently using an Ambulatory Assistive Device (Walker, Cane, Wheelchair, Crutches, etc.)? No PATIENT GENDER DATA: Female. status: : No status: NO. PATIENT RELEVANT IMPLANT DATA REVIEWED: Yes PATIENT PRESENTS WITH AN IMPLANTABLE OR ATTACHED PHYSICIAN IN PRIVATE PRACTICE: No RADIOLOGY DEPARTMENT: General X-ray: Exam(s) Completed: Upper Extremity X- Ray(s): Shoulder, AP / TRUE AP / AXILLARY / SUPRA OUTLET right PERIPHERAL IV DATA: Not applicable SIGNED BY: RT Daniele(R) October 24, 2023 2:16 PM documented in this encounterCity [facility]04-22-2024 History of Present illness Narrative* Jessica Concepcion APRN.CNP - 10/24/2023 1:44 PM EDT CC: Patient presents with: Recheck: 3 month follow up HPI Ursula Lane is a 72 year old female who presents today for routine follow up but with concerns. Has been fatigued since having covid over 2 months ago, muscle aches/cramps, weakness, history of restless legs she feels may be worsening, and has gained weight with no diet or activity change. Has had a nonproductive cough but this has been slowly improving. Also has had to use her imitrex a few times over the past few weeks which is increased for her. History of hypothyroidism but reports taking levothyroxine as ordered. No fever, chills, change in chronic cold intolerance, palpitations, N/V/D, chest pain, wheezing, shortness of breath, edema, pain or difficulty urinating, dizziness, or syncope. Right shoulder specifically with pain and weaker for the past 4-5 weeks. Trying to do home exercises but not noticed any improvement Denies injury, edema, redness, or loss of sensation. REVIEW OF SYSTEMS General: no fevers, no chills, no night sweats, no recurrent infections, no change in appetite, andno significant changes in weight Respiratory: no wheezing, no shortness of breath, no hemoptysis Cardiovascular: no chest pain, no chest pressure, no palpitations, and no swelling Neurologic: No numbness, tingling, dizziness, memory loss, syncope. PAST MEDICAL HISTORY Diagnosis Date Disorder of thyroid Irregular heart beat Migraine, intractable No past surgical history on file. ALLERGIES Boniva [Ibandronate], Fosamax [Alendronate], and Kzowuor-Wkw-Nxp Reductase Inhibitors MEDICATIONS benzonatate (TESSALON PERLE) 100 mg capsule Take 2 capsules by mouth three times a day as needed. acebutolol (SECTRAL) 200 mg capsule Take 1 capsule by mouth two times a day. SUMAtriptan (IMITREX) 20 mg/actuation nasal spray Use 1 [place] in the nose as needed. pantoprazole DR (PROTONIX) 20 mg tablet Take 1 tablet by mouth daily before breakfast. Take on empty stomach, 1/2 hr before meal. albuterol HFA (VENTOLIN HFA) 90 mcg/actuation inhaler Inhale 2 Puffs as instructed every 4 hours asneeded for wheezing/shortness of breath. azelastine 0.1% nasal spray Use 1 [place] in each nostril two times a day. LEVOXYL 50 mcg tablet TAKE 1 TABLET ONCE DAILY ROMAN EMPTY STOMACH FOR THYROID rosuvastatin (CRESTOR) 10 mg tablet Take 1 tablet by mouth once daily. niacin (NIACIN) 500 mg tablet Take 500 mg by mouth daily with breakfast. lecithin 1,000 mg chew Take 600 mg by mouth once daily. ubidecarenone Q-10 (COENZYME Q-10) 10 mg cap Take by mouth twice daily. VIT D3-FOLIC CROM-A7-F0-B12 ORAL Take by mouth. GAMMA-AMINOBUTYRIC ACID, BULK, MISC polyethylene glycol 3350 (MIRALAX ORAL) Take by mouth. glucosam/chond-msm1/C/castro/bor (GEXIGQKMPUR-MBJOX-RHO COMPLEX ORAL) Take by mouth. magnesium glycinate (MAG GLYCINATE ORAL) Take by mouth. No family history on file. Social History Tobacco Use Smoking status: Never Smokeless tobacco: Never Vaping Use Vaping Use: Never used Substance Use Topics Alcohol use: Yes Alcohol/week: 1.0 standard drink of alcohol Types: 1 Glasses of Wine (5oz) per week Comment: at dinner Drug use: Never PHYSICAL EXAM BP 118/68 Pulse 68 Resp 16 Wt 61.7 kg (136 lb) SpO2 99% BMI 23.34 kg/m General Appearance: well appearing, in no acute distress, alert Pysch: mood and affect broad and appropriate Eyes: conjunctiva pink and moist, no icterus, sclera white, non-injected Lungs: Lungs clear to auscultation. No wheezing, rhonchi, rales. Heart: RRR without murmur, gallop, or rubs. No ectopy Neck: Inspection: normal Palpation: nontender ROM: full Musculoskeletal: Right shoulder: normal to inspection. Reported tenderness with palpation of anterior bursa joint. ROM: normal. Special tests: Drop arm: -, Empty Can: +, Infraspinatus: -, Walker:-, Neer - Upper extremities: reflexes: +2 to bilateral U/L extremities.. Muscle strength: 5/5 upper, bilaterally BUE Extremities: No deformities, edema, skin discoloration, clubbing or cyanosis. Good capillary refill. Neurological: Gait normal. Reflexes normal and symmetric. Sensation intact., speech normal, mental status intact, muscle tone normal, muscle strength normal Health maintenance reviewed with patient: Advance Directive Discussion due on 07/04/2023 Behavioral Health Screening Never done DTaP,Tdap,Td Vaccine(1 - Tdap) due on 06/10/2024 Hepatitis C Screening due on 06/10/2024 Pneumococcal Vaccine: 65+(2 of 2 - PCV) due on 06/10/2024 Colorectal Cancer Screening due on 01/09/2029 Mammogram Screening due on 08/31/2024 Diabetes Screening due on 05/19/2026 Lipid Screening due on 05/19/2028 Bone Density Screening Completed Influenza Vaccine Completed RSV Vaccine Completed Shingrix Vaccine Completed Covid-19 Vaccine Completed DATA REVIEWED: No new labs ASSESSMENT/PLAN: 1. Acute pain of right shoulder - ICD9: 719.41, ICD10: M25.511 (primary diagnosis) - possible type of bursitis with location of pain but no edema or redness noted. - ice, rest, and NSAIDs for a few days as discussed. If no improvement may need steroid taper and physical therapy - XR SHOULDER ORTHO 4V AP/TRUE AP/LAT/OUTLET RIGHT 2. RUE weakness - ICD9: 729.89, ICD10: R29.898 As above - XR SHOULDER ORTHO 4V AP/TRUE AP/LAT/OUTLET RIGHT 3. Muscle aches - ICD9: 729.1, ICD10: M79.10 See #1 - COMPLETE BLOOD COUNT AND DIFFERENTIAL - T4 FREE/FREE THYROXINE - MAGNESIUM - COMPREHENSIVE METABOLIC PANEL 4. Other fatigue - ICD9: 780.79, ICD10: R53.83 - thyroid versus other cause versus post covid fatigue - COMPLETE BLOOD COUNT AND DIFFERENTIAL - T4 FREE/FREE THYROXINE - VITAMIN B12 - MAGNESIUM - COMPREHENSIVE METABOLIC PANEL - THYROID STIMULATING HORMONE 5. Hypothyroidism, unspecified type - ICD9: 244.9, ICD10: E03.9 - Instructed patient on importance of taking on an empty stomach either first thing in the morning or at bedtime. - T4 FREE/FREE THYROXINE - THYROID STIMULATING HORMONE 6. RLS (restless legs syndrome) - ICD9: 333.94, ICD10: G25.81 - feels chronic condition is worsening. Will further evaluate - COMPLETE BLOOD COUNT AND DIFFERENTIAL - T4 FREE/FREE THYROXINE - VITAMIN B12 - MAGNESIUM - THYROID STIMULATING HORMONE Prescription instructions reviewed with patient as applicable. Potential red flag symptoms discussed with the patient. Reviewed appropriate action plan to take if red flag symptoms occur. Patient agreeable to treatment plan. Jessica Concepcion APRN.CNP documented [facility] Miscellaneous Notes* Telephone Encounter - Abundio Deal LPN - 09/07/2023 4:02 PM EST Pt notified. Abundio Deal LPN * Telephone Encounter - Ana Bobo APRN.AUTO SERVICE WRITER - 09/07/2023 3:56 PM EST Please let her know I sent in tesPicwingramon that she can use for the cough. * Telephone Encounter - Meri Vee LPN - 09/07/2023 3:18 PM EST Pt dx'd with covid 08/14/23, had a VV & took antiviral. Pt reports she still has a cough, dry cough that is continuous. Pt states no difficulty breathing, pulse ox was 97%, has not dropped below 96%. Pt states she is still very tired. Pt denies mucus, congestion, chest tightness or fever. Pt asking what she can take for dry cough? Uses [facility] Meri Vee LPN documented in [facility]City [facility] Miscellaneous Notes* Letter - Coordinator, Mammography - 09/03/2023 7:22 AM EST September 05, 2023 PID: [id number] [address] [place] [address] Dear Ms. Lane, We are pleased to inform you that the results of your recent breast imaging exam on 09/01/2023 are normal. Early detection of cancer is very important. We also understand recommendations regarding breast cancer screening are controversial. Please discuss with your primary care provider which strategy is best for you and whether a mammogram is right for you. Your imaging studies and report will [facility] part of [facility] permanent medical record and are available for your continuing care. Thank you for allowing us to help in meeting your health care needs. Sincerely, Dr. Houston Interpreting Radiologist [facility] (Normal over 40) documented in this encounterCity Hospital02-29-2024 History of Present illness Narrative* Gretel Good RT(R) - 09/01/2023 9:50 AM EST Radiology Service Progress Note PATIENT NAME: Ursula Lane DATE OF SERVICE: September 01, 2023 TIME: 10:00 AM PATIENT IDENTITY VERIFICATION COMPLETED USING TWO (2) IDENTIFIERS: Name and Date of confirmedby patient verbally. FALL SCREENING: Has the patient had 2 falls in the last year or 1 fall with injury or currently using an Ambulatory Assistive Device (Walker, Cane, Wheelchair, Crutches, etc.)? No PATIENT GENDER DATA: Female. status: : No status: NO. PATIENT RELEVANT IMPLANT DATA REVIEWED: Not Applicable PATIENT PRESENTS WITH AN IMPLANTABLE OR ATTACHED PHYSICIAN IN PRIVATE PRACTICE: No RADIOLOGY DEPARTMENT: Mammography PERIPHERAL IV DATA: Not applicable SIGNED BY: RT Elizabeth(R) September 01, 2023 10:00 AM documented in this encounterCity Hospital02-10-2024 NoteHNO ID: [id number] Author: NEIL OROPEZA MD Service: ? Author Type: Physician Type: Progress Notes Filed: 08/13/2023 11:05 Note Text: Chief Complaint Patient presents with: Covid Positive I have communicated my name and active licensure. The patient's identity and physical location were verified at the time of this visit. Either the patient or their legal customer operations representative has been informed of the risks and benefits of -- and alternatives to -- treatment through a remote evaluation and consents to proceed with the evaluation remotely. HPI Ursula Lane is a 72 year old female who presents here today for Above Complaints. Patient states that she woke up this morning with headache, dry cough, sore throat, nasal congestion, rhinorrhea, fever up to 100.4, fatigue, myalgias, loss of appetite. Patient took rapid test and was positive. Treating symptoms with Azelastine nasal spray. Denies SOB, wheezing, new loss of taste/smell, nausea, vomiting, diarrhea. No recent sick contacts in the last 2 weeks with COVID. Past medical history, appointments, medications, allergies reviewed. Previous Medical History PAST MEDICAL HISTORY Diagnosis Date Disorder of thyroid Irregular heart beat Migraine, intractable Previous Surgical History No past surgical history on file. Family History No family history on file. Patient Allergies ALLERGIES Allergen Reactions Boniva [Ibandronate] Other: See Comments Was so down and out for 4 weeks she does not want the medication Fosamax [Alendronat* Other: See Comments She was down for a month after taking them . Just did not tolerate them at all Nwtsyjd-Mrb-Xut Red* Myalgia Restless legs. Current Medications Current Outpatient Medications on File Prior to Visit Medication Sig acebutolol (SECTRAL) 200 mg capsule Take 1 capsule by mouth two times a day. SUMAtriptan (IMITREX) 20 mg/actuation nasal spray Use 1 [place] in the nose as needed. pantoprazole DR (PROTONIX) 20 mg tablet Take 1 tablet by mouth daily before breakfast. Take on empty stomach, 1/2 hr before meal. albuterol HFA (VENTOLIN HFA) 90 mcg/actuation inhaler Inhale 2 Puffs as instructed every 4 hours as needed for wheezing/shortness of breath. azelastine 0.1% nasal spray Use 1 [place] in each nostril two times a day. LEVOXYL 50 mcg tablet TAKE 1 TABLET ONCE DAILY ROMAN EMPTY STOMACH FOR THYROID rosuvastatin (CRESTOR) 10 mg tablet Take 1 tablet by mouth once daily. niacin (NIACIN) 500 mg tablet Take 500 mg by mouth daily with breakfast. lecithin 1,000 mg chew Take 600 mg by mouth once daily. ubidecarenone Q-10 (COENZYME Q-10) 10 mg cap Take by mouth twice daily. VIT D3-FOLIC CHFS-U8-N7-B12 ORAL Take by mouth. GAMMA-AMINOBUTYRIC ACID, BULK, MISC polyethylene glycol 3350 (MIRALAX ORAL) Take by mouth. glucosam/chond-msm1/C/castro/bor (LOGSVMUVMUP-LQQNV-SJK COMPLEX ORAL) Take by mouth. magnesium glycinate (MAG GLYCINATE ORAL) Take by mouth. No current facility-administered medications on file prior to visit. Social History Social History Tobacco Use Smoking status: Never Smokeless tobacco: Never Vaping Use Vaping Use: Never used Substance Use Topics Alcohol use: Yes Alcohol/week: 1.0 standard drink of alcohol Types: 1 Glasses of Wine (5oz) per week Comment: at dinner Drug use: Never Review of Symptoms REVIEW OF SYSTEMS See HPI EXAM: Temp 37.8 ?C (100.1 ?F) General Appearance: Ill appearing, non toxic. Able to talk in complete sentences without cough, wheezing, SOB. Skin: Skin color, texture, turgor normal, no suspicious rashes or lesions. Health Maintenance List Advance Directive Discussion due on 07/04/2023 Depression Assessment due on 07/04/2023 Mammogram Screening due on 07/27/2023 DTaP,Tdap,Td Vaccine(1 - Tdap) due on 06/10/2024 Hepatitis C Screening due on 06/10/2024 Pneumococcal Vaccine: 65+(2 of 2 - PCV) due on 06/10/2024 Colorectal Cancer Screening due on 01/09/2029 Annual PCP Team Chronic Disease Visit due on 07/25/2024 Diabetes Screening due on 05/19/2026 Lipid Screening due on 05/19/2028 Bone Density Screening Completed Influenza Vaccine Completed RSV Vaccine Completed Shingrix Vaccine Completed Covid-19 Vaccine Completed ASSESSMENT/PLAN: 1. COVID-19 virus infection - ICD9: 079.89, ICD10: U07.1 Recommend rest, supportive care, and should isolate until: At least 5 days have passed since symptoms first appeared and At least 24 hours have passed since last fever without the use of fever-reducing medications and Symptoms (e.g., cough, shortness of breath) have improved. Should wear mask for at least 5 days after he ends isolation to prevent spread to others. Red flags for re-assessment reviewed with patient in detail. - MOLNUPIRAVIR 200 MG CAPSULE (EUA) Neil Oropeza MD Molnupiravir Eligibility and Patient Discussion [facility] Formulary Restriction Criteria: Adult outpatients 18 years (more content not included)...[facility]02-10-2024 Instructions* Patient Instructions* Neil Oropeza MD - 08/13/2023 11:00 AM EST Fact Sheet for Patients And Caregivers Emergency Use Authorization (EUA) Of LAGEVRIO (molnupiravir) capsules For Coronavirus Disease 2019 (COVID-19) What is the most important information I should know about LAGEVRIO? LAGEVRIO may cause serious side effects, including: LAGEVRIO may cause harm to your unborn baby. It is not known if LAGEVRIO will harm your baby if youtake LAGEVRIO during . LAGEVRIO is not recommended for use in . LAGEVRIO has not been studied in . LAGEVRIO was studied in animals only. When LAGEVRIO was given to animals, LAGEVRIO caused harm to their unborn babies. You and your healthcare provider may decide that you should take LAGEVRIO during if thereare no other COVID-19 treatment options approved or authorized by the FDA that are accessible or clinically appropriate for you. If you and your healthcare provider decide that you should take LAGEVRIO during , you and your healthcare provider should discuss the known and potential benefits and the potential risks of taking LAGEVRIO during . For individuals who are able to become : You should use a reliable method of control (contraception) consistently and correctly duringtreatment with LAGEVRIO and for 4 days after the last dose of LAGEVRIO. Talk to your healthcare provider about reliable control methods. Before starting treatment with LAGEVRIO your healthcare provider may do a test to see if you are before starting treatment with LAGEVRIO. Tell your healthcare provider right away if you become or think you may be duringtreatment with LAGEVRIO. Registry: There is a registry for individuals who take LAGEVRIO during . The purpose of this program is to collect information about the health of you and your baby. If you are or become during treatment with LAGEVRIO, you are encouraged to reportyour use of LAGEVRIO during to this registry at https://covid-pr.magnetic.io.rankur or . For individuals who are sexually active with partners who are able to become : It is not known if LAGEVRIO can affect sperm. While the risk is regarded as low, animal studies to fully assess the potential for LAGEVRIO to affect the babies of males treated with LAGEVRIO have notbeen completed. A reliable method of control (contraception) should be used consistently and correctly during treatment with LAGEVRIO and for at least 3 months after the last dose. The risk to sperm beyond 3 months is not known. Studies to understand the risk to sperm beyond 3 months are ongoing. Talk to your healthcare provider about reliable control methods. Talk to your healthcare provider if you have questions or concerns about how LAGEVRIO may affect sperm. You are being given this fact sheet because your healthcare provider believes it is necessary to provide you with LAGEVRIO for the treatment of adults with a current diagnosis of mild-tomoderate coronavirus disease 2019 (COVID-19) who are at high risk for progression to severe COVID-19, including hospitalization or , and for whom other COVID-19 treatment options approved or authorized by theFDA are not accessible or clinically appropriate. The [place] Food and Drug Administration (FDA) has issued an Emergency Use Authorization (EUA) to makeLAGEVRIO available during the COVID-19 pandemic (for more details about an EUA please see What is an Emergency Use Authorization? at the end of this document). LAGEVRIO is not an FDA-approved medicine in the [place]. Read this Fact Sheet for information about LAGEVRIO. Talk to your healthcareprovider about your options if you have any questions. It is your choice to take LAGEVRIO. What is COVID-19? COVID-19 is caused by a virus called a coronavirus. You can get COVID-19 through close contact withanother person who has the virus. COVID-19 illnesses have ranged from very mxqz-tn-ejfzfs, including illness resulting in . While information so far suggests that most COVID-19 illness is mild, serious illness can happen and maycause some of your other medical conditions to become worse. Older people and people of all ages with severe, long lasting (chronic) medical conditions like heart disease, lung disease and diabetes, for example seem to be at higher risk of being hospitalized for COVID-19. What is LAGEVRIO? LAGEVRIO is an investigational medicine used to treat adults with a current diagnosis of mild to moderate COVID-19: who are at high risk for progression to severe COVID-19 including hospitalization or , and for whom other COVID-19 treatment options approved or authorized by the FDA are not accessible or clinically appropriate. The FDA has authorized the emergency use of LAGEVRIO for the treatment of mild- tomoderate COVID-19 in adults under an EUA. For more information on EUA, see the What is an Emergency Use Authorization (EUA)? section at the end of this Fact Sheet. LAGEVRIO is not authorized: for use in people less than 18 years of age. for prevention of COVID-19. for people needing hospitalization for COVID-19. for use for longer than 5 consecutive days. What should I tell my healthcare provider before I take LAGEVRIO? Tell your healthcare provider if you: have any allergies are or plan to breastfeed have any serious illnesses Take any medicines including prescription, uyqc-zxb-viyleym medicines, vitamins, and herbal products. How do I take LAGEVRIO? Take LAGEVRIO exactly as your healthcare provider tells you to take it. Take 4 capsules of LAGEVRIO every 12 hours (for example, at 8 am and at 8 pm) Take LAGEVRIO for 5 days. It is important that you complete the full 5 days of treatment with LAGEVRIO. Do not stop taking LAGEVRIO before you complete the full 5 days of treatment, even if you feel better. Take LAGEVRIO with or without food. You should stay in isolation for as long as your healthcare provider tells you to. Talk to your healthcare provider if you are not sure about how to properly isolate while you have COVID-19. Swallow LAGEVRIO capsules whole. Do not open, break, or crush the capsules. If you cannot swallow capsules whole, tell your healthcare provider. If your healthcare provider prescribes LAGEVRIO and tells you to take or give a dose through a nasogastric (NG) or orogastric (OG) tube, follow the instructions below: How to take or give a dose of LAGEVRIO through a nasogastric (NG) or orogastric (OG) feeding tube. You must have an NG or OG that is size 12 Bulgarian (FR) or larger. If you miss a dose of LAGEVRIO: If it has been less than 10 hours since the missed dose, take it as soon as you remember. If it has been more than 10 hours since the missed dose, skip the missed dose and take your dose atthe next scheduled time. Do not double the dose of LAGEVRIO to make up for a missed dose. How to take or give a dose of LAGEVRIO through a nasogastric (NG) or orogastric (OG) feeding tube: Wash your hands well with soap and water. Gather the supplies you will need to take or give the prescribed dose of LAGEVRIO. 4 LAGEVRIO capsules 1 liquid measuring cup with mL markings to measure 40 mL of room temperature water 1 clean container with a lid 1 catheter tip syringe. Your healthcare provider should tell you what size catheter tip syringe youwill need to take or give a dose of LAGEVRIO. Place the needed supplies on a clean work surface. Follow your healthcare provider s instructions on how to flush the NG or OG feeding tube. Flush theNG or OG feeding tube with 5 mL of water before taking or giving a dose of LAGEVRIO. Carefully open 4 LAGEVRIO capsules, one at a time, and empty the contents into a clean container. Use the liquid measuring cup to measure 40 mL of room temperature water and add to the container containing the capsule contents. Place the lid on the container. Shake to mix the capsule contents and water well for 3 minutes. Thecapsule contents may not dissolve completely. Remove the lid from the container and draw up all the LAGEVRIO and water mixture into a catheter tip syringe. Give all of the mixture right away through the NG or OG feeding tube. Do not keep the mixture for future use. If any capsule contents are left in the container: Add 10 mL of water to the container, and mix to loosen any capsule contents that are left in the container. Use the catheter tip syringe to draw up all of the mixture in the container. Give the mixture through the NG or OG feeding tube. Repeat this process as needed until you no longer see any capsule contents left in the container orcatheter tip syringe. Use the same catheter tip syringe to flush the NG or OG feeding tube 2 times with 5 mL of water (10mL total). Rinse the container, lid and catheter tip syringe well with clean water after use. Place on a cleanpaper towel until next use. What are the important possible side effects of LAGEVRIO? See, What is the most important information I should know about LAGEVRIO? Allergic Reactions. Allergic reactions can happen in people taking LAGEVRIO, even after only 1 dose. Stop taking LAGEVRIO and call your healthcare provider right away if you get any of the following symptoms of an allergic reaction: hives rapid heartbeat trouble swallowing or breathing swelling of the mouth, lips, or face throat tightness hoarseness skin rash The most common side effects of LAGEVRIO are: diarrhea nausea dizziness These are not all the possible side effects of LAGEVRIO. Not many people have taken LAGEVRIO. Serious and unexpected side effects may happen. This medicine is still being studied, so it is possible that all of the risks are not known at this time. What other treatment choices are there? Veklury (remdesivir) is FDA-approved as an intravenous (IV) infusion for the treatment of mildto-moderate COVID-19 in certain adults and children. Talk with your doctor to see if Veklury is appropriate for you. Like LAGEVRIO, FDA may also allow for the emergency use of other medicines to treat people with COVID-19. Go to https://www.fda.gov/yevkxgzcq-aoywoyjgkune-wcg-response/eef-iauuaacgqspcnea-yhs- policy-framework/pjxmiomte-zal-ybsagpkipihkj for more information. It is your choice to be treated or not to be treated with LAGEVRIO. Should you decide not to take it, it will not change your standard medical care. What if I am ? is not recommended during treatment with LAGEVRIO and for 4 days after the last dose of LAGEVRIO. If you are or plan to breastfeed, talk to your healthcare provider about your options and specific situation before taking LAGEVRIO. How do I report side effects with LAGEVRIO? Contact your healthcare provider if you have any side effects that bother you or do not go away. Report side effects to FDA MedWatch at www.fda.gov/medwatch or call 4-867-TEI-8157 ([phone]). How should I store LAGEVRIO? Store LAGEVRIO capsules at room temperature between 68 F to 77 F (20 C to 25 C). Keep LAGEVRIO and all medicines out of the reach of children. How can I learn more about COVID-19? Ask your healthcare provider. Visit www.cdc.gov/COVID19 Contact your local or state public health department. Call [employer] at (toll free in the [place] Visit www.Axion BioSystemsvir.rankur What Is an Emergency Use Authorization (EUA)? The [place] FDA has made LAGEVRIO available under an emergency access mechanism called an Emergency Use Authorization (EUA) The EUA is supported by a [employer] Manager of Health and Human Service ([facility])declaration that circumstances exist to justify emergency use of drugs and biological products during the COVID-19 pandemic. LAGEVRIO for the treatment of adults with a current diagnosis of gnvi-qu-ggfmulaq COVID-19 who are at high risk for progression to severe COVID- 19, including hospitalization or , and for whom alternative COVID-19 treatment options approved or authorized by FDA are not accessible or clinically appropriate, has not undergone the same type of review as an FDAapproved product. In issuing an EUA under the COVID-19 public health emergency, the FDA has determined, among other things, that based on the total amount of scientific evidence available including data from adequate and well-controlledclinical trials, if available, it is reasonable to believe that the product may be effective for diagnosing, treating, or preventing COVID-19, or a serious or life-threatening disease or condition caused by COVID-19; that the known and potential benefits of the product, when used to diagnose, treat, or prevent such disease or condition, outweigh the known and potential risks of such product; and that there are no adequate, approved, and available alternatives. All of these criteria must be met to allow for the product to be used in the treatment of patients during the COVID-19 pandemic. The EUA for LAGEVRIO is in effect for the duration of the COVID-19 declaration justifying emergency use of LAGEVRIO, unless terminated or revoked (after which LAGEVRIO may no longer be used under the EUA). Yuly. for: [employer] [address] For patent information: [email or web address] Copyright [employer] [place], [place], [place] and its affiliates. All rights reserved. [id number] Revised: August 2022 documented in this encounterCity Hospital02-10-2024 History of Present illness Narrative* Neil Oropeza MD - 08/13/2023 10:44 AM EST Chief Complaint Patient presents with: Covid Positive I have communicated my name and active licensure. The patient's identity and physical location wereverified at the time of this visit. Either the patient or their legal customer operations representative has been informed of the risks and benefits of -- and alternatives to -- treatment through a remote evaluation andconsents to proceed with the evaluation remotely. HPI Ursula Lane is a 72 year old female who presents here today for Above Complaints. Patient states that she woke up this morning with headache, dry cough, sore throat, nasal congestion, rhinorrhea, fever up to 100.4, fatigue, myalgias, loss of appetite. Patient took rapid test and was positive. Treating symptoms with Azelastine nasal spray. Denies SOB, wheezing, new loss of taste/smell, nausea, vomiting, diarrhea. No recent sick contacts in the last 2 weeks with COVID. Past medical history, appointments, medications, allergies reviewed. Previous Medical History PAST MEDICAL HISTORY Diagnosis Date Disorder of thyroid Irregular heart beat Migraine, intractable Previous Surgical History No past surgical history on file. Family History No family history on file. Patient Allergies ALLERGIES Allergen Reactions Boniva [Ibandronate] Other: See Comments Was so down and out for 4 weeks she does not want the medication Fosamax [Alendronat* Other: See Comments She was down for a month after taking them . Just did not tolerate them at all Kxedybj-Pgr-Jug Red* Myalgia Restless legs. Current Medications Current Outpatient Medications on File Prior to Visit Medication Sig acebutolol (SECTRAL) 200 mg capsule Take 1 capsule by mouth two times a day. SUMAtriptan (IMITREX) 20 mg/actuation nasal spray Use 1 [place] in the nose as needed. pantoprazole DR (PROTONIX) 20 mg tablet Take 1 tablet by mouth daily before breakfast. Take on empty stomach, 1/2 hr before meal. albuterol HFA (VENTOLIN HFA) 90 mcg/actuation inhaler Inhale 2 Puffs as instructed every 4 hours asneeded for wheezing/shortness of breath. azelastine 0.1% nasal spray Use 1 [place] in each nostril two times a day. LEVOXYL 50 mcg tablet TAKE 1 TABLET ONCE DAILY ROMAN EMPTY STOMACH FOR THYROID rosuvastatin (CRESTOR) 10 mg tablet Take 1 tablet by mouth once daily. niacin (NIACIN) 500 mg tablet Take 500 mg by mouth daily with breakfast. lecithin 1,000 mg chew Take 600 mg by mouth once daily. ubidecarenone Q-10 (COENZYME Q-10) 10 mg cap Take by mouth twice daily. VIT D3-FOLIC LFGN-T0-P2-B12 ORAL Take by mouth. GAMMA-AMINOBUTYRIC ACID, BULK, MISC polyethylene glycol 3350 (MIRALAX ORAL) Take by mouth. glucosam/chond-msm1/C/castro/bor ([id number]-XMD COMPLEX ORAL) Take by mouth. magnesium glycinate (MAG GLYCINATE ORAL) Take by mouth. No current facility-administered medications on file prior to visit. Social History Social History Tobacco Use Smoking status: Never Smokeless tobacco: Never Vaping Use Vaping Use: Never used Substance Use Topics Alcohol use: Yes Alcohol/week: 1.0 standard drink of alcohol Types: 1 Glasses of Wine (5oz) per week Comment: at dinner Drug use: Never Review of Symptoms REVIEW OF SYSTEMS See HPI EXAM: Temp 37.8 C (100.1 F) General Appearance: Ill appearing, non toxic. Able to talk in complete sentences without cough, wheezing, SOB. Skin: Skin color, texture, turgor normal, no suspicious rashes or lesions. Health Maintenance List Advance Directive Discussion due on 07/04/2023 Depression Assessment due on 07/04/2023 Mammogram Screening due on 07/27/2023 DTaP,Tdap,Td Vaccine(1 - Tdap) due on 06/10/2024 Hepatitis C Screening due on 06/10/2024 Pneumococcal Vaccine: 65+(2 of 2 - PCV) due on 06/10/2024 Colorectal Cancer Screening due on 01/09/2029 Annual PCP Team Chronic Disease Visit due on 07/25/2024 Diabetes Screening due on 05/19/2026 Lipid Screening due on 05/19/2028 Bone Density Screening Completed Influenza Vaccine Completed RSV Vaccine Completed Shingrix Vaccine Completed Covid-19 Vaccine Completed ASSESSMENT/PLAN: 1. COVID-19 virus infection - ICD9: 079.89, ICD10: U07.1 Recommend rest, supportive care, and should isolate until: At least 5 days have passed since symptoms first appeared and At least 24 hours have passed since last fever without the use of fever-reducing medications and Symptoms (e.g., cough, shortness of breath) have improved. Should wear mask for at least 5 days after he ends isolation to prevent spread to others. Red flags for re-assessment reviewed with patient in detail. - MOLNUPIRAVIR 200 MG CAPSULE (EUA) Neil Oropeza MD Molnupiravir Eligibility and Patient Discussion [facility] Restriction Criteria: Adult outpatients 18 years and older with ALL of the following: [x] Patient has symptoms for 5 days or less [x] Not requiring hospitalization at any time for management of COVID-19 [x] Not requiring supplemental oxygen or a change in baseline supplemental oxygen [x] Not utilized for pre-exposure or post-exposure prophylaxis for prevention of COVID-19 [x] Patient is not or lactating [x] Meeting at least one of the criteria for high risk of progression to severe COVID-19: [x] Age over 65 years [] Cancer [] Chronic kidney disease [] Chronic liver disease [] Chronic lung diseases, including cystic fibrosis [] Dementia or other neurological conditions [] Diabetes (type 1 or type 2) [] Disabilities, including Down syndrome and neurodevelopmental disorders [] Heart conditions [] HIV infection [] Immunocompromised state [] Mental health conditions [] Medical related technological dependence (tracheostomy, gastrostomy, or positive pressure ventilation (not related to COVID) [] Overweight and obesity (BMI greater or equal to 25 for adults) [] Physical inactivity [] Sickle cell disease or thalassemia [] Smoking, current or former [] Solid organ or blood stem cell transplant [] Stroke or cerebrovascular disease [] Substance use disorders [] Tuberculosis [] People from racial and ethnic minority groups Criteria above are met: Yes Date of Symptom Onset: August 13, 2023 Patient received COVID vaccine: Yes / status reviewed: Females: [x] Patient is not currently and there is no possibility the patient could be (select one of the following): [] test does not need to be confirmed in patients who have undergone permanent sterilization, are currently using an intrauterine system or contraceptive implant, or in whom is not possible. [] Patients not meeting conditions above: assess whether the patient is based on the firstday of the last menstrual period in individuals who have regular menstrual cycles, is using reliable method of contraception correctly and consistently or have had a negative test [] A test is recommended if the individual has irregular menstrual cycles, is unsure of the first day of the last menstrual period or is not using effective contraception correctly and consistently [x] Patient is not currently . is not recommended during treatment and for four days after final dose of molnupiravir. [x] Females have been advised to use a reliable method of contraception correctly and consistently for the duration of treatment and for four days after the last dose of molnupiravir Males: [] Sexually active male with partner(s) of childbearing potential has been advised to use a reliable method of contraception correctly and consistently for intercourse for the duration of treatment and for three months after the last dose of molnupiravir I have discussed the use of the investigational therapeutic, molnupiravir, for the treatment of mild to moderate COVID-19 and its use under Emergency Use Authorization with the patient. The patient was informed that molnupiravir is not an FDA approved drug and that it is authorized for use under this Emergency Use Authorization. The patient was also informed of the significant knownbenefits and potential risks of molnupiravir, and the extent to which such potential risks and benefits are unknown. The patient was informed that there is mandatory reporting of all medication errors and serious adverse events potentially related to molnupiravir treatment within 7 calendar days from the onset of the event and that events up to 28 days after completion of therapy need to be reported. The discussion included alternatives to receiving molnupiravir, including clinical trials, and potential the risks and benefits of those alternatives. The patient was provided electronically withthe "Fact Sheet for Patients, Parents and Caregivers". The patient was also instructed that in addition to the treatment with molnupiravir, he/she should continue to self-isolate and use infection control measures (e.g., wear mask, isolate, social distance, avoid sharing personal items, clean and disinfect "high touch" surfaces, and frequent handwashing) according to CDC guidelines. The patient stated understanding and gave verbal consent to proceeding with molnupiravir treatment. I spent a total of 20 minutes on the date of the service which included preparing to see the patient, [id number] patient care, completing clinical documentation, obtaining and/or reviewing separately obtained history, performing a medically appropriate examination, counseling and educating the pat ient/family/caregiver, and ordering medications, tests, or procedures. Neil Oropeza MD August 13, 2023 11:01 AM documented in this encounterCity Hospital02-09-2024 Miscellaneous Notes* Telephone Encounter - Linda Contreras LPN - 08/12/2023 8:58 AM EST Patient has been identified by name and date of : No Patient phones for refill(s): Requested Prescriptions Pending Prescriptions Disp Refills SUMAtriptan (IMITREX) 20 mg/actuation nasal spray 12 Each 3 Sig: Use 1 [place] in the nose as needed. Date of last office visit in primary care: 07/25/2023 Date of next office visit in primary care: 10/24/2023 Please advise. Thank you. Linda Contreras LPN. documented in this encounterCity Hospital02-09-2024 Miscellaneous Notes* Telephone Encounter - Linda Contreras LPN - 08/12/2023 8:54 AM EST Patient has been identified by name and date of : No Patient phones for refill(s): Requested Prescriptions Pending Prescriptions Disp Refills acebutolol (SECTRAL) 200 mg capsule 180 capsule 3 Sig: Take 1 capsule by mouth two times a day. Date of last office visit in primary care: 07/25/2023 Date of next office visit in primary care: 08/11/2023 Please advise. Thank you. Linda Contreras LPN. documented in this encounterCity Hospital01-22-2024 NoteHNO ID: [id number] Author: JESSICA CONCEPCION APRN.AUTO SERVICE WRITER Service: ? Author Type: Nurse Practitioner Type: Progress Notes Filed: 07/25/2023 15:03 Note Text: CC: Patient presents with: Recheck: 6 week follow up HPI Ursula Lane is a 72 year old female who presents today for follow up on chest pain thought to be result of GERD. Was started on pantoprazole 6 weeks ago: Occasional difficulty swallowing but PPI helped immensely with coughing, chest pain, and decreased the dysphagia as well. Denies nausea, vomiting, abdominal pain, fever chills, shortness breath, or palpitations. Still wearing inserts but right ankle has ongoing aching to ankle worsening with movement of ankle. Left foot has a sharp pain when walking from arch radiating through medial side of ankle. Denies falls, twisting, injuries, weakness, injury, edema, redness or numbness. Wears shoes with good support. Also reports she has had pressure to right sided sinus cavity since this past weekend and even teeth and right ear are hurting as well. Also with yellow nasal drainage and sore throat. Had ongoing sinus infection to right maxillary sinus over 15 years ago that required 12 months of antibiotics and surgery. Feels like this is starting again. Denies wheezing, shortness of breath, fever, wheezing, or cough. Also wants to discuss she had shoe inserts for 30 years for ankle pain as ordered by podiatry. Has had worn inserts since after having coritsol injections. The inserts were the best help for group home relief. REVIEW OF SYSTEMS See HPI PAST MEDICAL HISTORY Diagnosis Date Disorder of thyroid Irregular heart beat Migraine, intractable No past surgical history on file. ALLERGIES Boniva [Ibandronate], Fosamax [Alendronate], and Zyjxrcf-Boo-Txd Reductase Inhibitors MEDICATIONS albuterol HFA (VENTOLIN HFA) 90 mcg/actuation inhaler Inhale 2 Puffs as instructed every 4 hours as needed for wheezing/shortness of breath. SUMAtriptan (IMITREX) 20 mg/actuation nasal spray Use 1 [place] in the nose as needed. azelastine 0.1% nasal spray Use 1 [place] in each nostril two times a day. pantoprazole DR (PROTONIX) 20 mg tablet Take 1 tablet by mouth daily before breakfast. Take on empty stomach, 1/2 hr before meal. LEVOXYL 50 mcg tablet TAKE 1 TABLET ONCE DAILY ROMAN EMPTY STOMACH FOR THYROID rosuvastatin (CRESTOR) 10 mg tablet Take 1 tablet by mouth once daily. acebutolol (SECTRAL) 200 mg capsule TAKE 1 CAPSULE TWICE DAILY niacin (NIACIN) 500 mg tablet Take 500 mg by mouth daily with breakfast. lecithin 1,000 mg chew Take 600 mg by mouth once daily. ubidecarenone Q-10 (COENZYME Q-10) 10 mg cap Take by mouth twice daily. VIT D3-FOLIC [id number] ORAL Take by mouth. GAMMA-AMINOBUTYRIC ACID, BULK, MISC polyethylene glycol 3350 (MIRALAX ORAL) Take by mouth. glucosam/chond-msm1/C/castro/bor ([id number] COMPLEX ORAL) Take by mouth. magnesium glycinate (MAG GLYCINATE ORAL) Take by mouth. No family history on file. Social History Tobacco Use Smoking status: Never Smokeless tobacco: Never Vaping Use Vaping Use: Never used Substance Use Topics Alcohol use: Yes Alcohol/week: 1.0 standard drink of alcohol Types: 1 Glasses of Wine (5oz) per week Comment: at dinner Drug use: Never PHYSICAL EXAM BP 124/78 Pulse 68 Resp 16 Wt 62.1 kg (137 lb) SpO2 96% BMI 23.52 kg/m? General Appearance: well appearing, in no acute distress, alert Skin: Skin color, texture, turgor normal for age; Eyes: conjunctiva pink and moist, no icterus, sclera white, non-injected Ears: external ears normal to inspection and palpation, canals clear, Left tympanic membrane normal. , Right tympanic membrane normal Nose/sinus: Nares normal. Septum midline. Mucosa normal. No drainage. Sinus tenderness reported to right maxillary sinus Neck: Thyroid normal size and symmetric without palpable nodules, Neck supple, No adenopathy Lymph nodes: No cervical lymphadenopathy and No supraclavicular lymphadenopathy Lungs: Lungs clear to auscultation. No wheezing, rhonchi, rales. Heart: RRR without murmur, gallop, or rubs. No ectopy BLE Extremities: No deformities, edema, skin discoloration, clubbing or cyanosis. Good capillary refill. Pulses palpable Bilateral ankles without edema or redness. Full ROM bur report some pain to rotation of right ankle. Tenderness to bilateral foot arches. Health maintenance reviewed with patient: Advance Directive Discussion due on 07/04/2023 Depression Assessment due on 07/04/2023 Mammogram Screening due on 07/27/2023 DTaP,Tdap,Td Vaccine(1 - Tdap) due on 06/10/2024 Hepatitis C Screening due on 06/10/2024 Pneumococcal Vaccine: 65+(2 of 2 - PCV) due on 06/10/2024 Colorectal Cancer Screening due on 01/09/2029 Annual PCP Team Chronic Disease Visit due on 06/10/2024 Diabetes Screening due on 05/19/2026 Lipid Screening due on 05/19/2028 Bone Density Screening Completed Influen (more content not included)...[facility]12-08-2023 Note HNO ID: [id number] Author: Chandler Garcia RT(R) Service: Radiology Author Type: Technologist Type: Progress Notes Filed: 06/10/2023 9:45 AM Note Text: Radiology Service Progress Note PATIENT NAME: Ursula Lane DATE OF SERVICE: June 10, 2023 TIME: 9:34 AM PATIENT IDENTITY VERIFICATION COMPLETED USING TWO (2) IDENTIFIERS: Name and Date of confirmed by patient verbally. FALL SCREENING: Has the patient had 2 falls in the last year or 1 fall with injury or currently using an Ambulatory Assistive Device (Walker, Cane, Wheelchair, Crutches, etc.)? No PATIENT GENDER DATA: Female. status: : No status: NO. PATIENT RELEVANT IMPLANT DATA REVIEWED: Not Applicable RADIOLOGY DEPARTMENT: General X-ray: Exam(s) Completed: Chest X-Ray PERIPHERAL IV DATA: Not applicable SIGNED BY: RT Raisa(R) June 10, 2023 9:34 [facility]12-08-[facility] NoteHNO ID: [id number] Author: Jessica Concepcion APRN.AUTO SERVICE WRITER Service: ? Author Type: Nurse Practitioner Type: Progress Notes Filed: 06/10/2023 9:39 AM Note Text: CC: Patient presents with: F/U 6 months HPI Ursula Lane is a 72 year old female who presents today for routine follow up. Was on collagen for her arthritis and stopped by PCP over 6 months ago due to her kidney function. Would like to see if she can restart this. HLD and history of abnormal Rhythm/palpitations: Takes medication as ordered. Has had intermittent left sided chest sharp pain over the past 3 weeks. Will occur when she is in bed. Also with ongoing difficulty swallowing when eating dry foods. Will have to get water to help it go down. Does have chronic constipation she uses miralax for. Had a cardiac work up over 40 years ago at [facility] for palpitations and skipped beats but results unavailable. Patient felt it was "ventricular fibrillation" but was not shocked back in rhythm so unsure. Denies diaphoresis, syncope, weakness, nausea, vomiting, palpitations, edema, fever, chills, or shortness of breath. Reports she has a persistent nonproductive cough and morning headaches. Can occur at night, in the morning or even during the day. Will get hoarse from cough. Does have sinus draianage she thinks is due to allergies. Has had this for about 6 months. Feels she sometimes wheezes when the cough is bad. REVIEW OF SYSTEMS See HPI PAST MEDICAL HISTORY Diagnosis Date Disorder of thyroid Irregular heart beat Migraine, intractable No past surgical history on file. ALLERGIES Boniva [Ibandronate], Fosamax [Alendronate], and Wnhciit-Jyc-Xbu Reductase Inhibitors MEDICATIONS LEVOXYL 50 mcg tablet TAKE 1 TABLET ONCE DAILY ROMAN EMPTY STOMACH FOR THYROID SUMAtriptan (IMITREX) 20 mg/actuation nasal spray Use 1 [place] in the nose as needed. rosuvastatin (CRESTOR) 10 mg tablet Take 1 tablet by mouth once daily. acebutolol (SECTRAL) 200 mg capsule TAKE 1 CAPSULE TWICE DAILY azelastine (ASTELIN) 0.1% nasal spray Use 1 [place] in each nostril twice daily. niacin (NIACIN) 500 mg tablet Take 500 mg by mouth daily with breakfast. lecithin 1,000 mg chew Take 600 mg by mouth once daily. ubidecarenone Q-10 (COENZYME Q-10) 10 mg cap Take by mouth twice daily. VIT D3-FOLIC YSEW-E7-[id number]-B12 ORAL Take by mouth. GAMMA-AMINOBUTYRIC ACID, BULK, MISC polyethylene glycol 3350 (MIRALAX ORAL) Take by mouth. glucosam/chond-msm1/C/castro/bor (SEYKEYCIACY-EWJOF-MCK COMPLEX ORAL) Take by mouth. magnesium glycinate (MAG GLYCINATE ORAL) Take by mouth. albuterol HFA (VENTOLIN HFA) 90 mcg/actuation inhaler Inhale 2 Puffs as instructed every 4 hours as needed for wheezing/shortness of breath. No family history on file. Social History Tobacco Use Smoking status: Never Smokeless tobacco: Never Vaping Use Vaping Use: Never used Substance Use Topics Alcohol use: Yes Alcohol/week: 1.0 standard drink of alcohol Types: 1 Glasses of Wine (5oz) per week Comment: at dinner Drug use: Never PHYSICAL EXAM BP 120/76 Pulse 64 Resp 16 Wt 61.7 kg (136 lb) SpO2 99% BMI 23.34 kg/m? General Appearance: well appearing, in no acute distress, alert Skin: Skin color, texture, turgor normal for age; Eyes: conjunctiva pink and moist, no icterus, sclera white, non-injected Nose/sinus: Nares normal. Septum midline. Mucosa normal. No drainage., No sinus tenderness Neck: Thyroid normal size and symmetric without palpable nodules, Neck supple, No adenopathy Oropharynx: tongue midline and normal, soft palate, uvula, and tonsils normal, palpation of salivary glands negative, Lymph nodes: No cervical lymphadenopathy and No supraclavicular lymphadenopathy Lungs: Lungs clear to auscultation. No wheezing, rhonchi, rales. Heart: RRR without murmur, gallop, or rubs. No ectopy Abdomen: Abdomen soft, non-tender. Bowel sounds normal. No masses, organomegaly Health maintenance reviewed with patient: Hepatitis C Screening Never done DTaP,Tdap,Td Vaccine(1 - Tdap) due on 09/15/2005 Pneumococcal Vaccine: 65+(2 - PCV) due on 03/28/2021 Colorectal Cancer Screening due on 01/30/2022 Advance Directive Discussion due on 07/04/2022 Mammogram Screening due on 07/27/2023 Annual PCP Team Chronic Disease Visit due on 12/10/2023 Diabetes Screening due on 05/19/2026 Lipid Screening due on 05/19/2028 Bone Density Screening Completed Influenza Vaccine Completed Depression Assessment Completed RSV Vaccine Completed Shingrix Vaccine Completed Covid-19 Vaccine Completed EKG Interpretation: RHYTHM: Normal sinus rhythm at 61 beats per minute AXIS: Normal axis INTERVALS: Normal UT interval QRS COMPLEX: Normal ST SEGMENT: Normal ST-T segments QT INTERVAL: Normal COMPARED WITH PRIOR: unchanged DATA REVIEWED: Most recent labs ASSESSMENT/PLAN: 1. Chest pain, unspecified type - ICD9: 786.50, ICD10: R07.9 (primary diagnosi (more content not included)...[facility]12-08-2023 History of Present illness Narrative* Chandler Garcia RT(R) - 06/10/2023 9:40 AM EST Radiology Service Progress Note PATIENT NAME: Ursula Lane DATE OF SERVICE: June 10, 2023 TIME: 9:34 AM PATIENT IDENTITY VERIFICATION COMPLETED USING TWO (2) IDENTIFIERS: Name and Date of confirmedby patient verbally. FALL SCREENING: Has the patient had 2 falls in the last year or 1 fall with injury or currently using an Ambulatory Assistive Device (Walker, Cane, Wheelchair, Crutches, etc.)? No PATIENT GENDER DATA: Female. status: : No status: NO. PATIENT RELEVANT IMPLANT DATA REVIEWED: Not Applicable RADIOLOGY DEPARTMENT: General X-ray: Exam(s) Completed: Chest X-Ray PERIPHERAL IV DATA: Not applicable SIGNED BY: RT Raisa(R) June 10, 2023 9:34 AM documented in this encounterCity Hospital12-08-2023 Instructions* Patient Instructions* Jessica Concepcion APRN.CNP - 06/10/2023 9:20 AM EST Start a daily claritin/loratadine for sinus draianage. documented in this encounterCity Hospital12-08-2023 History of Present illness Narrative* Jessica Concepcion APRN.CNP - 06/10/2023 8:45 AM EST CC: Patient presents with: F/U 6 months HPI Ursula Lane is a 72 year old female who presents today for routine follow up. Was on collagen for her arthritis and stopped by PCP over 6 months ago due to her kidney function. Would like to see if she can restart this. HLD and history of abnormal Rhythm/palpitations: Takes medication as ordered. Has had intermittent left sided chest sharp pain over the past 3 weeks. Will occur when she is in bed. Also with ongoing difficulty swallowing when eating dry foods. Will have to get water to help itgo down. Does have chronic constipation she uses miralax for. Had a cardiac work up over 40 years ago at [facility] for palpitations and skipped beats butresults unavailable. Patient felt it was "ventricular fibrillation" but was not shocked back in rhythm so unsure. Denies diaphoresis, syncope, weakness, nausea, vomiting, palpitations, edema, fever, chills, or shortness of breath. Reports she has a persistent nonproductive cough and morning headaches. Can occur at night, in the morning or even during the day. Will get hoarse from cough. Does have sinus draianage she thinks is due to allergies. Has had this for about 6 months. Feels she sometimes wheezes when the cough is bad. REVIEW OF SYSTEMS See HPI PAST MEDICAL HISTORY Diagnosis Date Disorder of thyroid Irregular heart beat Migraine, intractable No past surgical history on file. ALLERGIES Boniva [Ibandronate], Fosamax [Alendronate], and Skctiwm-Jgg-Ynt Reductase Inhibitors MEDICATIONS LEVOXYL 50 mcg tablet TAKE 1 TABLET ONCE DAILY ROMAN EMPTY STOMACH FOR THYROID SUMAtriptan (IMITREX) 20 mg/actuation nasal spray Use 1 [place] in the nose as needed. rosuvastatin (CRESTOR) 10 mg tablet Take 1 tablet by mouth once daily. acebutolol (SECTRAL) 200 mg capsule TAKE 1 CAPSULE TWICE DAILY azelastine (ASTELIN) 0.1% nasal spray Use 1 [place] in each nostril twice daily. niacin (NIACIN) 500 mg tablet Take 500 mg by mouth daily with breakfast. lecithin 1,000 mg chew Take 600 mg by mouth once daily. ubidecarenone Q-10 (COENZYME Q-10) 10 mg cap Take by mouth twice daily. VIT D3-FOLIC EBAO-S4-H9-B12 ORAL Take by mouth. GAMMA-AMINOBUTYRIC ACID, BULK, MISC polyethylene glycol 3350 (MIRALAX ORAL) Take by mouth. glucosam/chond-msm1/C/castro/bor (VYSCGZCNRJR-WKEMB-JXG COMPLEX ORAL) Take by mouth. magnesium glycinate (MAG GLYCINATE ORAL) Take by mouth. albuterol HFA (VENTOLIN HFA) 90 mcg/actuation inhaler Inhale 2 Puffs as instructed every 4 hours asneeded for wheezing/shortness of breath. No family history on file. Social History Tobacco Use Smoking status: Never Smokeless tobacco: Never Vaping Use Vaping Use: Never used Substance Use Topics Alcohol use: Yes Alcohol/week: 1.0 standard drink of alcohol Types: 1 Glasses of Wine (5oz) per week Comment: at dinner Drug use: Never PHYSICAL EXAM BP 120/76 Pulse 64 Resp 16 Wt 61.7 kg (136 lb) SpO2 99% BMI 23.34 kg/m General Appearance: well appearing, in no acute distress, alert Skin: Skin color, texture, turgor normal for age; Eyes: conjunctiva pink and moist, no icterus, sclera white, non-injected Nose/sinus: Nares normal. Septum midline. Mucosa normal. No drainage., No sinus tenderness Neck: Thyroid normal size and symmetric without palpable nodules, Neck supple, No adenopathy Oropharynx: tongue midline and normal, soft palate, uvula, and tonsils normal, palpation of salivary glands negative, Lymph nodes: No cervical lymphadenopathy and No supraclavicular lymphadenopathy Lungs: Lungs clear to auscultation. No wheezing, rhonchi, rales. Heart: RRR without murmur, gallop, or rubs. No ectopy Abdomen: Abdomen soft, non-tender. Bowel sounds normal. No masses, organomegaly Health maintenance reviewed with patient: Hepatitis C Screening Never done DTaP,Tdap,Td Vaccine(1 - Tdap) due on 09/15/2005 Pneumococcal Vaccine: 65+(2 - PCV) due on 03/28/2021 Colorectal Cancer Screening due on 01/30/2022 Advance Directive Discussion due on 07/04/2022 Mammogram Screening due on 07/27/2023 Annual PCP Team Chronic Disease Visit due on 12/10/2023 Diabetes Screening due on 05/19/2026 Lipid Screening due on 05/19/2028 Bone Density Screening Completed Influenza Vaccine Completed Depression Assessment Completed RSV Vaccine Completed Shingrix Vaccine Completed Covid-19 Vaccine Completed EKG Interpretation: RHYTHM: Normal sinus rhythm at 61 beats per minute AXIS: Normal axis INTERVALS: Normal UT interval QRS COMPLEX: Normal ST SEGMENT: Normal ST-T segments QT INTERVAL: Normal COMPARED WITH PRIOR: unchanged DATA REVIEWED: Most recent labs ASSESSMENT/PLAN: 1. Chest pain, unspecified type - ICD9: 786.50, ICD10: R07.9 (primary diagnosis) Atypical chest pain, symptoms are not consistent with cardiac ischemia due to nonexertional nature of symptom and accompanying GI symptoms possible etiology include GERD - pantoprazole as ordered - ECG COMPLETE - XR CHEST 2V FRONTAL/LAT 2. Chronic cough - ICD9: 786.2, ICD10: R05.3 - possibly from sinus drainage versus GERD versus other cause - XR CHEST 2V FRONTAL/LAT 3. Sinus drainage - ICD9: 478.19, ICD10: J34.89 - mild - claritin daily as discussed 4. Dysphagia, unspecified type - ICD9: 787.20, ICD10: R13.10 -possible from reflux. Discussed possible EGD for further evaluation. - will start PPI and then further discuss at follow up. 5. Palpitations - ICD9: 785.1, ICD10: R00.2 History of this and well controlled with current treatment - with chest pain ay need to get updated ECHO as I do not have any previous records. 6. Mixed hyperlipidemia - ICD9: 272.2, ICD10: E78.2 - Controlled - Continue current medications - Counseled on healthy diet and regular exercise - Discussed need for and benefit of weight loss. BMI 23.34 kg/(m^2) 7. Osteoarthritis, unspecified osteoarthritis type, unspecified site - ICD9: 715.90, ICD10: M19.90 - do not start collagen at this time. Will discuss further after other concerns are further evaluated and improved. Prescription instructions reviewed with patient as applicable. Potential red flag symptoms discussed with the patient. Reviewed appropriate action plan to take if red flag symptoms occur. Patient agreeable to treatment plan. Jessica Concepcion APRN.CNP [facility] note* Diagnosis Stage 3a chronic kidney disease (HCC)- Primary [facility] Miscellaneous Notes* Telephone Encounter - Maryam Craft - 01/12/2023 2:51 PM EDT Called pt to schedule and she stated she is going to take a copy of her referral to a facility closer to her. Maryam PSS * Telephone Encounter - Jonathon Flores Ma - 01/12/2023 1:22 PM EDT Please contact to assist in scheduling. * Telephone Encounter - Yamilka Stringer RN - 01/12/2023 10:54 AM EDT Patient calls and states that she would like to see a grounds foreman to help with her diet. Patient wants to make sure Kidney disease does not get worse. Please review and advise, Yamilka Stringer RN documented in this [facility]City [facility]23 Miscellaneous Notes* Telephone Encounter - Linda Garza LPN - 01/10/2023 7:23 AM EDT Patient has been identified by name and date of : No Patient phones for refill(s): Requested Prescriptions Pending Prescriptions Disp Refills LEVOXYL 50 mcg tablet [Pharmacy Med Name: LEVOXYL TAB 50MCG] 90 tablet 3 Sig: TAKE 1 TABLET ONCE DAILY ROMAN EMPTY STOMACH FOR THYROID Date of last office visit in primary care: 12/09/22 Last 2 Encounter Wt Readings: Date: Wt: 12/09/2022 60.3 kg (133 lb) 06/10/2022 59.9 kg (132 lb) Previous labs/tests for medication: Thyroid: TSH Date Value 11/30/2022 1.290 mIU/L 08/10/2021 2.340 uU/mL Please advise. Thank you. Linda Garza LPN documented in this encounterCity [facility]07-03-[facility]23 NoteHNO ID: [id number] Author: Andrae Dey PT Service: ? Author Type: Physical Therapist Type: Progress Notes Filed: 01/03/2023 1:29 PM Note Text: Episode Visit Count: 1 Therapist That Will Accept/Oversee The Plan Of Care: Andrae Dey Start of Care Date: 01/03/23 Onset Date: 07/04/22 Plan of Care Certification Date: 01/03/23 Next Certification Due Date: 03/06/23 Patient Identified by Name and Date of : Yes REHABILITATION AND SPORTS THERAPY PHYSICAL THERAPY EVALUATION PLAN OF CARE: Assessment: Ursula Lane presents with chief complaint of neck and back pain that interferes with nothing . She presents with impairments in ADL's, overall function, range of motion, strength, symptom management, and tissue tenderness. PROMIS? (Patient-Reported Outcomes Measurement Information System) scores were reviewed and self efficacy domain identified as a rehabilitation concern. Prognosis for therapy is Good due to: current objective clinical presentation, good overall health status, positive past response to therapy, within-session changes, good support system/ coping skills . She will benefit from skilled therapy services to meet the goals established for this plan of care as noted below. Classification Low Back Pain Subgroup Classification: Specific exercise subgroup: recommended visits 8. Specific Exercies Subgroup Classification based on: directional preference Goals for Episode of Care: created on 01/03/23 through 03/06/23 Independent in home exercises. Patient will decrease pain rating by 2 points to meet minimal clinical important difference for numeric pain rating scale. Restore pain-free lumbar and cervical ROM to WNL to allow for improved functional mobility. Stand / Walk as needed without pain/symptoms. Sleep through night without pain/symptoms. Patient will increase strength of trunk/core to 4+/5 to allow for improve ability to complete ADLs. Planned Interventions, Frequency, and Duration: Current Frequency: 1x/week Duration: 8 weeks Total Number of Visits Planned: 8 Planned Treatment Interventions: Therapeutic exercise (51792), Neuromuscular re-education (58177), Manual therapy (19153), Therapeutic activities (62911), Self-skilled nursing management (99484), Patient/Family/Caregiver Education, Body Mechanics Training PLAN FOR NEXT VISIT: Assess carry over of HEP, show traction options for home Patient demonstrates good understanding of plan of care and treatment. The above goals and plan of care were discussed and agreed upon by patient/family. SUBJECTIVE: Ursula Lane is a 72 year old female seen today for Lump on the L side of the neck that she noticed 3-4 weeks ago. No specific pain related to the lump but in general stiff and sore neck with restricted motion on a daily basis. Pt also notes R sided back pain and sciatica, but just back pain right now. Notices the back most with gardening. Pain stays isolated to that spot with no radiation right now. Functional Limitations: nothing Prior Level of Function: Independent without limitations Intake Information: Prescription present Red Flags Vertebral Fracture Red Flags: Age >70, Female Vertebral Fracture Clinical Reasoning: No identified risk factors Cancer Clinical Reasoning: Proceed with caution Infection Clinical Reasoning: No identified risk factors. Cervical Arterial Dysfunction Clinical Reasoning: No identified risk factors Cervical Myelopathy: Age > 45 yo Cervical Myelopathy Diagnostic Rule: No identified risk factors. Red Flags - Cervical Cancer Clinical Reasoning: Proceed with caution Infection Clinical Reasoning: No identified risk factors. Cervical Arterial Dysfunction Clinical Reasoning: No identified risk factors Cervical Myelopathy: Age > 45 yo Cervical Myelopathy Diagnostic Rule: No identified risk factors. Pain: Pain Pain Level: 4 Pain Location: Neck Description: Sore, Stiffness Frequency: Continuous Additional Pain Information : Location 2 Pain Level 2: 4 Pain Location 2: Low Back/Lumbar Spine - Right Description 2: Sore Frequency 2: Continuous PROMIS Scales Higher is Better 01/02/2023 Phys Func - Score 44 (mild dysfunction) Phys Func - Percentile 27 % Self-Eff Symptom - Score 44 (Average) Self-Eff Symptom - Percentile 27 % T-scores: mean of general population = 50. 5 points is clinically meaningfully difference Percentiles provide an indication of how the patient's score ranks in relation to the general population. Higher percentile rankings indicate better function/quality of life. 50th percentile is the average of the general population and indicates half of respondents had a worse score. OBJECTIVE MEASURES WITH LEVEL OF FUNCTION: Lumbar Spine AROM Lumbar Flexion: Normal Lumbar Extension: Moderate limitation, Increased pain Lumbar R Side-Bend: Minimal limitation Lumbar L Side-Bend: Normal Lumbar R Rotation: Normal Lumbar L Rot (more content not included)...[facility]07-03-2023 History of Present illness Narrative* Andrae Dey, PT - 01/03/2023 1:24 PM EDT Episode Visit Count: 1 Therapist That Will Accept/Oversee The Plan Of Care: Andrae Dey Start of Care Date: 01/03/23 Onset Date: 07/04/22 Plan of Care Certification Date: 01/03/23 Next Certification Due Date: 03/06/23 Patient Identified by Name and Date of : Yes REHABILITATION AND SPORTS THERAPY PHYSICAL THERAPY EVALUATION PLAN OF CARE: Assessment: Ursula Lane presents with chief complaint of neck and back pain that interferes with nothing . She presents with impairments in ADL's, overall function, range of motion, strength, symptom management, and tissue tenderness. PROMIS (Patient-Reported Outcomes Measurement Information System) scores were reviewed and self efficacy domain identified as a rehabilitation concern. Prognosis for therapy is Good due to: current objective clinical presentation, good overall health status, positive past response to therapy, within-session changes, good support system/ coping skills . She will benefit from skilled therapy services to meet the goals established for this plan of care as noted below. Classification Low Back Pain Subgroup Classification: Specific exercise subgroup: recommended visits 8. Specific Exercies Subgroup Classification based on: directional preference Goals for Episode of Care: created on 01/03/23 through 03/06/23 Independent in home exercises. Patient will decrease pain rating by 2 points to meet minimal clinical important difference for numeric pain rating scale. Restore pain-free lumbar and cervical ROM to WNL to allow for improved functional mobility. Stand / Walk as needed without pain/symptoms. Sleep through night without pain/symptoms. Patient will increase strength of trunk/core to 4+/5 to allow for improve ability to complete ADLs. Planned Interventions, Frequency, and Duration: Current Frequency: 1x/week Duration: 8 weeks Total Number of Visits Planned: 8 Planned Treatment Interventions: Therapeutic exercise (57800), Neuromuscular re- education (20826), Manual therapy (14051), Therapeutic activities (96590), Self- skilled nursing management (08274), Patient/Family/Caregiver Education, Body Mechanics Training PLAN FOR NEXT VISIT: Assess carry over of HEP, show traction options for home Patient demonstrates good understanding of plan of care and treatment. The above goals and plan of care were discussed and agreed upon by patient/family. SUBJECTIVE: Ursula Lane is a 72 year old female seen today for Lump on the L side of the neck that she noticed 3-4 weeks ago. No specific pain related to the lump but in general stiff and sore neck with restricted motion on a daily basis. Pt also notes R sided back pain and sciatica, but just back pain right now. Notices the back most with gardening. Pain stays isolated to that spot with no radiation right now. Functional Limitations: nothing Prior Level of Function: Independent without limitations Intake Information: Prescription present Red Flags Vertebral Fracture Red Flags: Age >70, Female Vertebral Fracture Clinical Reasoning: No identified risk factors Cancer Clinical Reasoning: Proceed with caution Infection Clinical Reasoning: No identified risk factors. Cervical Arterial Dysfunction Clinical Reasoning: No identified risk factors Cervical Myelopathy: Age > 45 yo Cervical Myelopathy Diagnostic Rule: No identified risk factors. Red Flags - Cervical Cancer Clinical Reasoning: Proceed with caution Infection Clinical Reasoning: No identified risk factors. Cervical Arterial Dysfunction Clinical Reasoning: No identified risk factors Cervical Myelopathy: Age > 45 yo Cervical Myelopathy Diagnostic Rule: No identified risk factors. Pain: Pain Pain Level: 4 Pain Location: Neck Description: Sore, Stiffness Frequency: Continuous Additional Pain Information : Location 2 Pain Level 2: 4 Pain Location 2: Low Back/Lumbar Spine - Right Description 2: Sore Frequency 2: Continuous PROMIS Scales Higher is Better 01/02/2023 Phys Func - Score 44 (mild dysfunction) Phys Func - Percentile 27 % Self-Eff Symptom - Score 44 (Average) Self-Eff Symptom - Percentile 27 % T-scores: mean of general population = 50. 5 points is clinically meaningfully difference Percentiles provide an indication of how the patient's score ranks in relation to the general population. Higher percentile rankings indicate better function/quality of life. 50th percentile is the average of the general population and indicates half of respondents had a worse score. OBJECTIVE MEASURES WITH LEVEL OF FUNCTION: Lumbar Spine AROM Lumbar Flexion: Normal Lumbar Extension: Moderate limitation, Increased pain Lumbar R Side-Bend: Minimal limitation Lumbar L Side-Bend: Normal Lumbar R Rotation: Normal Lumbar L Rotation: Normal Cervical Spine ROM Cervical ROM : Limitation AROM Cervical Flexion AROM: Normal Cervical Extension AROM: Moderate limitation Cervical Side-Bend Right AROM: Moderate limitation Cervical Side-Bend Left AROM: Moderate limitation Cervical Rotation Right AROM: Minimal limitation Cervical Rotation Left AROM: Minimal limitation UE and Cervical Strength R UE Strength: 4+/5 L UE Strength: 4+/5 LE Strength Trunk Strength: 3+/5 R LE Strength: 4+/5 L LE Strength: 4+/5 Special Tests - Cervical Cervical Special Tests: Cervical Distraction Cervical Distraction: Positive Education: Education Learning/educational needs: Home exercise program, Plan of Care, Changes in Plan of Care, Body Mechanics TREATMENT: PT Treatment Interventions: Therapeutic Exercise, Manual Therapy Evaluation Therapeutic Exercise: 1: *SKC 3x30 sec 2: *DKC 3x30 sec 3: *Upper trap strethc 3x20 sec/side 4: *Cervical retractions 3x10 Skilled Intervention: Patient was educated in proper exercise technique and purpose for exercises. Skilled judgment was provided in selection of appropriate interventions. Provided written instruction for home exercise program to facilitate proper performance and compliance. Correct performance of therapeutic exercises was facilitated with verbal, visual, and tactile cuing. Manual Therapy: 1: Manual cervical traction x10 min total with 1 bout straight, 1 bout producing R side bend to open L 2: STM to L cervical paraspinals and upper trap with push to tolerance Skilled Intervention: Manual skills to improve joint mobility, ROM, and decrease pain. Utilized anatomy knowledge of the therapist, and assessment of patient's response to intervention. Billing * Evaluation Moderate Complexity: 1 Unit Therapeutic Exercise Treatment Minutes: 10 Manual TherapyTreatment Minutes: 17 Total Treatment Time Minutes (timed/untimed): 45 Andrae Dey PT documented in this encounterCity [facility]06-30-[facility]23 NotePatient Outreach (NETNAV) URSULA LANE ([id number]) 1950 F Date Time Provider Department 12/31/22 NO PCP NETNAV During your visit today, we recorded the following information about you: Patricia Tamayo 12/31/2022 11:29 AM Signed POPULATION HEALTH NAVIGATION OUTREACH Action/[facility] Support: Called pt to schedule an appt in Pain Management. Lvm for pt to call [phone] for scheduling. Patient Identified by Name and : NO Outreach Outcome/Action Unable to reach patient: Left message Did you use a PCP flex slot to schedule this appointment? No Reason for Outreach Care Gap or Scheduling/Wellness visits Payer: Payor: MEDICARE / Plan: MEDICARE A AND B / Product Type: Medicare / Care Gap Reviewed:: Specialty Scheduling Reminder: Reminder note to check Health Maintenance for items below Health Maintenance items due: HEPATITIS C SCREENING Never done DTAP,TDAP,TD(1 - Tdap) Never done PNEUMOCOCCAL: 65+(2 - PCV) due on 03/28/2021 COLORECTAL CANCER SCREENING due on 01/30/2022 ADVANCE DIRECTIVE DISCUSSION due on 07/04/2022 Navigation Signature: Patricia Tamayo December 31, 2022 11:26 AM Allergies As of Date: 12/31/2022 Noted Allergy Reaction BONIVA (IBANDRONATE) 08/21/2021 14 - Other: See Comments Comments: Was so down and out for 4 weeks she does not want the medication FOSAMAX (ALENDRONATE) 08/21/2021 14 - Other: See Comments Comments: She was down for a month after taking them . Just did not tolerate them at all IBJTYYG-DVE-QUH REDUCTASE INHIBIT*08/21/2021 17 - Myalgia Comments: Restless legs. Date Reviewed: 12/09/2022 Reviewed by: Jacquelyn Person LPN - Fully Assessed Prescriptions as of 12/31/2022 - SUMAtriptan (IMITREX) 20 mg/actuation nasal spray Use 1 [place] in the nose as needed. - levothyroxine (LEVOXYL) 50 mcg tablet Take 1 tablet by mouth once daily. Except on Tuesday take 2 pills. Take on empty stomach. For Thyroid - rosuvastatin (CRESTOR) 10 mg tablet Take 1 tablet by mouth once daily. - acebutolol (SECTRAL) 200 mg capsule TAKE 1 CAPSULE TWICE DAILY - azelastine (ASTELIN) 0.1% nasal spray Use 1 [place] in each nostril twice daily. - niacin (NIACIN) 500 mg tablet Take 500 mg by mouth daily with breakfast. - lecithin 1,000 mg chew Take 600 mg by mouth once daily. - ubidecarenone Q-10 (COENZYME Q-10) 10 mg cap Take by mouth twice daily. - VIT D3-FOLIC LOGW-Q5-N7-B12 ORAL Take by mouth. - GAMMA-AMINOBUTYRIC ACID, BULK, MISC - polyethylene glycol 3350 (MIRALAX ORAL) Take by mouth. - glucosam/chond-msm1/C/castro/bor (CYHOBGGVVVX-GFYLC-SMK COMPLEX ORAL) Take by mouth. - magnesium glycinate (MAG GLYCINATE ORAL) Take by mouth. - albuterol HFA (VENTOLIN HFA) 90 mcg/actuation inhaler Inhale 2 Puffs as instructed every 4 hours as needed for wheezing/shortness of breath. 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 Author Type: ? Type: Progress Notes Filed: 12/31/2022 11:29 AM Note Text: POPULATION HEALTH NAVIGATION OUTREACH Action/[facility] Support: Called pt to schedule an appt in Pain Management. Lvm for pt to call [phone] for scheduling. Patient Identified by Name and : NO Outreach Outcome/Action Unable to reach patient: Left message Did you use a PCP flex slot to schedule this appointment? No Reason for Outreach Care Gap or Scheduling/Wellness visits Payer: Payor: MEDICARE / Plan: MEDICARE A AND B / Product Type: Medicare / Care Gap Reviewed:: Specialty Scheduling Reminder: Reminder note to check Health Maintenance for items below Health Maintenance items due: HEPATITIS C SCREENING Never done DTAP,TDAP,TD(1 - Tdap) Never done PNEUMOCOCCAL: 65+(2 - PCV) due on 03/28/2021 COLORECTAL CANCER SCREENING due on 01/30/2022 ADVANCE DIRECTIVE DISCUSSION due on 07/04/2022 Navigation Signature: Patricia Tamayo December 31, 2022 11:26 [facility]06-30-[facility] History of Present illness Narrative* Patricia Tamayo - 12/31/2022 11:26 AM EDT POPULATION HEALTH NAVIGATION OUTREACH Action/[facility] Support: Called pt to schedule an appt in Pain Management. Lvm for pt to call [phone] for scheduling. Patient Identified by Name and : NO Outreach Outcome/Action Unable to reach patient: Left message Did you use a PCP flex slot to schedule this appointment? No Reason for Outreach Care Gap or Scheduling/Wellness visits Payer: Payor: MEDICARE / Plan: MEDICARE A AND B / Product Type: Medicare / Care Gap Reviewed:: Specialty Scheduling Reminder: Reminder note to check Health Maintenance for items below Health Maintenance items due: HEPATITIS C SCREENING Never done DTAP,TDAP,TD(1 - Tdap) Never done PNEUMOCOCCAL: 65+(2 - PCV) due on 03/28/2021 COLORECTAL CANCER SCREENING due on 01/30/2022 ADVANCE DIRECTIVE DISCUSSION due on 07/04/2022 Navigation Signature: Patricia Tamayo December 31, 2022 11:26 AM documented in this encounterCity Hospital06-19-2023 Miscellaneous Notes* Telephone Encounter - Promise Desai - 12/20/2022 12:07 PM EDT Patient has been contacted and scheduled. Also supplied her with pain management phone [phone] Promise Desai * Telephone Encounter - Perlita Ingram Ma - 12/16/2022 9:40 AM EDT Patient notified, please schedule with Pain Management and PT. * Telephone Encounter - Emma Schultz MD - 12/15/2022 8:05 PM EDT Please let her know that she has: Severe degenerative disc disease at C3-4, C4- 5, C5-6 and C6-7. Would like to her to see pain management for injections and Physical Therapy If gfr is less than 60 we call it chronic kidney disease stage 3. Would advice to repeat tests. There is no value in seeing the nephrolgist at this time lobito before the repeat test. Staying off the NSAIDs is important. naproxen, motrin, brufen, aleve etc and contrast., adequate hydration Keepingblood pressure under control. Regards, Emma Schultz MD * Telephone Encounter - Layla Colvin LPN - 12/14/2022 11:30 AM EDT Pt calling for the followin)results of x-rays done on 12-09-22 2)regarding creatinine level pt was to increase her water intake and will recheck lab in 1 month. 3)pt reports at her last visit she was told she has stage 3 kidney disease and pt would like to know does she need an apt with a physical director before her kidney's get bad. Please advise pt. Layla Colvin LPN documented in this encounterCity Hospital06-08-2023 NoteHNO ID: [id number] Author: RT Soraya(R) Service: ? Author Type: Technologist Type: Progress Notes Filed: 12/09/2022 11:58 AM Note Text: Radiology Service Progress Note PATIENT NAME: Ursula Lane DATE OF SERVICE: December 09, 2022 TIME: 11:58 AM PATIENT IDENTITY VERIFICATION COMPLETED USING TWO (2) IDENTIFIERS: Name and Date of confirmed by patient verbally. FALL SCREENING: Has the patient had 2 falls in the last year or 1 fall with injury or currently using an Ambulatory Assistive Device (Walker, Cane, Wheelchair, Crutches, etc.)? No PATIENT GENDER DATA: Female. status: : No status: NO. PATIENT RELEVANT IMPLANT DATA REVIEWED: Not Applicable RADIOLOGY DEPARTMENT: General X-ray: Exam(s) Completed: Spine X-Ray(s): Cervical AP / LAT / OBL PERIPHERAL IV DATA: Not applicable SIGNED BY: RT Soraya(R) December 09, 2022 11:58 [facility]06-08-2023 NoteHNO ID: [id number] Author: Emma Schultz MD Service: ? Author Type: Physician Type: Progress Notes Filed: 12/09/2022 1:59 PM Note Text: Reason for Visit Patient presents with: Recheck: 6 month Complaint of b/l leg cramps, spasms in back, bump on left side of back of neck Ursula Lane is a 72 year old female who presents here today for Above Complaints.. Health Maintenance HEPATITIS C SCREENING DTAP,TDAP,TD(1 - Tdap) PNEUMOCOCCAL: 65+(2 - PCV) COLORECTAL CANCER SCREENING ADVANCE DIRECTIVE DISCUSSION DEPRESSION ASSESSMENT SHINGRIX VACCINE(2 of 2) HPI 2 nights ago the left leg spasmed out a lot. The muscles on the right side tightened up a lot. She had some back issues where her muscles and back are spasming. Has been working out doors a lot more, she does sweat sometimes. She does try to get some water in at that time She does not drink enough water. She has noticed back spasms more with the gardening She also had this similar issue with the statins which comes around after a certain amount of being on the statin. Recently everything she did, the back the legs. Using equipment in the arms, ets Patient wants to do a water regimen first. Patient should consider getting the electrolytes drinks recently. Her creat and gfr are lower than a year ago, will get another test when she is well hydrated She has been taking a little aleve at night if her bad is really hurting her. Takes it 3/4 times a month. She has tried tylenol but it does not last enough Has been doing a protein powder for a year and a half, wonder if there is more creatinine at that time. Patient does think she has some relief of the collagen peptides. Her aunt of kidney disease young. Had 2 injuries in the neck, she surgeries but she had symptoms after, currently pain but her vertebral spine seems conspiculously malaligned. No problem-specific Assessment AND Plan notes found for this encounter. PAST MEDICAL HISTORY Diagnosis Date Disorder of thyroid Irregular heart beat Migraine, intractable No past surgical history on file. No family history on file. Social History Tobacco Use Smoking status: Never Smokeless tobacco: Never Vaping Use Vaping Use: Never used Substance Use Topics Alcohol use: Yes Alcohol/week: 1.0 standard drink Types: 1 Glasses of Wine (5oz) per week Comment: at dinner Drug use: Never Past medical history, appointments, medications, allergies reviewed. Pertinent Lab/Diagnostic Studies are reviewed and discussed today Current Outpatient Medications: acebutolol (SECTRAL) 200 mg capsule levothyroxine (LEVOXYL) 50 mcg tablet rosuvastatin (CRESTOR) 10 mg tablet azelastine (ASTELIN) 0.1% nasal spray SUMAtriptan (IMITREX) 20 mg/actuation nasal spray niacin (NIACIN) 500 mg tablet lecithin 1,000 mg chew ubidecarenone Q-10 (COENZYME Q-10) 10 mg cap VIT D3-FOLIC [id number] ORAL GAMMA-AMINOBUTYRIC ACID, BULK, MISC polyethylene glycol 3350 (MIRALAX ORAL) glucosam/chond-msm1/C/castro/bor ([id number] COMPLEX ORAL) magnesium glycinate (MAG GLYCINATE ORAL) albuterol HFA (VENTOLIN HFA) 90 mcg/actuation inhaler aspirin 81 mg chewable tablet montelukast (SINGULAIR) 10 mg tablet Review of Systems CONSTITUTIONAL: No fevers, chills night sweats, unintended weight loss CARDIOVASCULAR: No chest pain, dyspnea, palpitations, orthopnea, PND, ankle edema. PULM: No dyspnea, unexplained cough. GI: No dysphagia/odynophagia, problematic reflux, constipation, diarrhea, changes in stool habits, hematochezia, melena. : No new urinary complaints, including dysuria, gross hematuria or pyuria. NEURO: No new balance problems, peripheral weakness/paresthesias or numbness of concern. Physical Exam BP 118/78 Pulse 62 Resp 16 Wt 60.3 kg (133 lb) SpO2 97% BMI 22.83 kg/m? General appearance: Well appearing, alert, in no acute distress, well nourished. Skin: Skin color, texture, turgor normal, no suspicious rashes or lesions Head: Normocephalic, no masses, lesions, tenderness or abnormalities Eyes: Anicteric sclera. Pupils are equally round and reactive to light. Extraocular movements are intact. Lungs: Lungs clear to auscultation. No wheezing, rhonchi, rales Heart: RRR without murmur, gallop, or rubs. Extremities: No deformities, edema, skin discoloration, clubbing or cyanosis. Good capillary refill. ASSESSMENT/PLAN: 1. Muscle spasms of both lower extremities - ICD9: 728.85, ICD10: M62.838 (primary diagnosis) ? Related to dehydration due to working out a lot and less oral intake of electrolyte. If that does not help then we can cut down the pravastatin to 2 times a week and see if symptoms are better 2. Back spasm - ICD9: 724.8, ICD10: M62.830 Same as above 3. Stage 3a chronic kidney disease (HCC) - ICD9: 585.3, ICD10: N18.31 Stop the collagen peptides for a month and hydrate well and recheck bmp - BASIC METABO (more content not included)...[facility] 11-30-2022 Miscellaneous Notes* Telephone Encounter - Tommy Otero LPN - 11/30/2022 10:14 AM EDT Patient returned call and went over notes below from Dr Schultz with understanding. * Telephone Encounter - Alicja Velasquez RN - 11/30/2022 10:09 AM EDT Call placed to patient with no answer. Voicemail left for patient to return call and ask to speak to a triage nurse to receive provider message. Alicja Velasquez RN * Telephone Encounter - Emma Schultz MD - 11/27/2022 12:24 PM EDT Ordered labs as requested Regards, Emma Schultz MD * Telephone Encounter - Alicja Velasquez RN - 11/26/2022 3:31 PM EDT Patient calls to request lab orders be placed prior to 6 month follow up on December 09. Please call patient once orders are placed at [phone]. Alicja Velasquez RN documented in this encounterCity Hospital03-29-2023 NotePatient Outreach (NETNAV) URSULA LANE ([id number]) 1950 F Date Time Provider Department 09/29/22 SINDY HUNT During your visit today, we recorded the following information about you: Sindy Hunt MA 09/29/2022 11:18 AM Signed POPULATION HEALTH NAVIGATION OUTREACH Action/FYI left message to call me back to discuss cologuard my chart message sent with AD info follow up 12/09/22 Patient Identified by Name and : NO Outreach Outcome/Action Unable to reach patient: Left message ReactXhart message sent Advance Directives sent Did you use a PCP flex slot to schedule this appointment? N/A Reason for Outreach Care Gap or Scheduling/Wellness visits Payer: Payor: MEDICARE / Plan: MEDICARE A AND B / Product Type: Medicare / Care Gap Reviewed:: Colorectal Cancer Screening Reminder: Reminder note to check Health Maintenance for items below Health Maintenance items due: HEPATITIS C SCREENING Never done DTAP,TDAP,TD(1 - Tdap) Never done SHINGRIX VACCINE(1 of 2) Never done PNEUMOCOCCAL: 65+(2 - PCV) due on 03/28/2021 COLORECTAL CANCER SCREENING due on 01/30/2022 ADVANCE DIRECTIVE DISCUSSION due on 07/04/2022 DEPRESSION ASSESSMENT due on 07/04/2022 Navigation Signature: Sindy Hunt MA September 29, 2022 11:15 AM Allergies As of Date: 09/29/2022 Noted Allergy Reaction BONIVA (IBANDRONATE) 08/21/2021 14 - Other: See Comments Comments: Was so down and out for 4 weeks she does not want the medication FOSAMAX (ALENDRONATE) 08/21/2021 14 - Other: See Comments Comments: She was down for a month after taking them . Just did not tolerate them at all [id number] REDUCTASE INHIBIT*08/21/2021 17 - Myalgia Comments: Restless legs. Date Reviewed: 06/10/2022 Reviewed by: Jacquelyn Person LPN - Fully Assessed Reason for Visit: Population Health Navigation Outreach [3910] Cmt: ACO Care Gaps Prescriptions as of 09/29/2022 - levothyroxine (LEVOXYL) 50 mcg tablet Take 1 tablet by mouth once daily. Except on Tuesday take 2 pills. Take on empty stomach. For Thyroid - acebutolol (SECTRAL) 200 mg capsule TAKE 1 CAPSULE TWICE DAILY - rosuvastatin (CRESTOR) 10 mg tablet Take 1 tablet by mouth once daily. - azelastine (ASTELIN) 0.1% nasal spray Use 1 [place] in each nostril twice daily. - SUMAtriptan (IMITREX) 20 mg/actuation nasal spray Use 20 Sprays in the nose as needed. - aspirin 81 mg chewable tablet Take 81 mg by mouth once daily. - niacin (NIACIN) 500 mg tablet Take 500 mg by mouth daily with breakfast. - lecithin 1,000 mg chew Take 600 mg by mouth once daily. - ubidecarenone Q-10 (COENZYME Q-10) 10 mg cap Take by mouth twice daily. - VIT D3-FOLIC SDTK-[id number]-B12 ORAL Take by mouth. - GAMMA-AMINOBUTYRIC ACID, BULK, MISC - polyethylene glycol 3350 (MIRALAX ORAL) Take by mouth. - glucosam/chond-msm1/C/castro/bor (PHIWBMXQEEG-FBTAN-ASC COMPLEX ORAL) Take by mouth. - magnesium glycinate (MAG GLYCINATE ORAL) Take by mouth. - montelukast (SINGULAIR) 10 mg tablet Take 1 tablet by mouth daily at bedtime. - albuterol HFA (VENTOLIN HFA) 90 mcg/actuation inhaler Inhale 2 Puffs as instructed every 4 hours as needed for wheezing/shortness of breath. Problem List As Of Date 09/29/2022 Noted Resolved Hand arthritis [M19.049] 06/10/2022 Encounter Status:Closed by SINDY HUNT on 09/29/22[facility]03-29-2023 NoteHNO ID: [id number] Author: Sindy Hunt MA Service: ? Author Type: Registry Nurse Type: Progress Notes Filed: 09/29/2022 11:18 AM Note Text: POPULATION HEALTH NAVIGATION OUTREACH Action/FYI left message to call me back to discuss cologuard my chart message sent with AD info follow up 12/09/22 Patient Identified by Name and : NO Outreach Outcome/Action Unable to reach patient: Left message MyChart message sent Advance Directives sent Did you use a PCP flex slot to schedule this appointment? N/A Reason for Outreach Care Gap or Scheduling/Wellness visits Payer: Payor: MEDICARE / Plan: MEDICARE A AND B / Product Type: Medicare / Care Gap Reviewed:: Colorectal Cancer Screening Reminder: Reminder note to check Health Maintenance for items below Health Maintenance items due: HEPATITIS C SCREENING Never done DTAP,TDAP,TD(1 - Tdap) Never done SHINGRIX VACCINE(1 of 2) Never done PNEUMOCOCCAL: 65+(2 - PCV) due on 03/28/2021 COLORECTAL CANCER SCREENING due on 01/30/2022 ADVANCE DIRECTIVE DISCUSSION due on 07/04/2022 DEPRESSION ASSESSMENT due on 07/04/2022 Navigation Signature: Sindy Hunt MA September 29, 2022 11:15 [facility]02-23-[facility] Miscellaneous Notes * Telephone Encounter - Jacquelyn Person LPN - 08/26/2022 3:20 PM EST Patient advised, verbalized understanding. * Telephone Encounter - Emma Schultz MD - 08/26/2022 3:05 PM EST Yes, she has taken all the available ones And is upto date Regards, Emma Schultz MD * Telephone Encounter - Yamilka Stringer RN - 08/25/2022 4:25 PM EST Patient calls and states that her and are going out of state on September 06. Patient asking if she is updated on Covid Boosters? Patient just wanted to make sure she shouldn't have a Covid booster before her trip. Please review and advise, Yamilka Stringer RN documented in this encounterCity Hospital01-25-2023 Miscellaneous Notes* Letter - Mammography Coordinator - 07/28/2022 4:35 PM EST July 29, 2022 PID: [id number] Urs[address] [place] [address] Dear Ms. Lane, We are pleased to inform you that the results of your recent breast imaging exam on 07/27/2022 are normal. Early detection of cancer is very important. We also understand recommendations regarding breast cancer screening are controversial. Please discuss with your primary care provider which strategy is best for you and whether a mammogram is right for you. Your imaging studies and [facility] and are available for your continuing care. Thank you for allowing us to help in meeting your health care needs. Sincerely, Dr. Clark Interpreting Radiologist [facility] (Normal over 40) documented in this encounterCity Hospital01-24-2023 History of Present illness Narrative* Franci Perez RT(R) - 07/27/2022 9:30 AM EST Radiology Service Progress Note PATIENT NAME: Ursula Lane DATE OF SERVICE: July 27, 2022 TIME: 9:13 AM PATIENT IDENTITY VERIFICATION COMPLETED USING TWO (2) IDENTIFIERS: Name and Date of confirmedby patient verbally. FALL SCREENING: Has the patient had 2 falls in the last year or 1 fall with injury or currently using an Ambulatory Assistive Device (Walker, Cane, Wheelchair, Crutches, etc.)? No PATIENT GENDER DATA: Female. status: : No status: NO. PATIENT RELEVANT IMPLANT DATA REVIEWED: Not Applicable RADIOLOGY DEPARTMENT: Mammography PERIPHERAL IV DATA: Not applicable SIGNED BY: RT Marifer(R) July 27, 2022 9:13 AM documented in this encounterCity Hospital12-09-2022 Miscellaneous Notes* Telephone Encounter - Perlita Ingram Ma - 06/11/2022 3:56 PM EST Patient notified. * Telephone Encounter - Perlita Ingram Ma - 06/11/2022 3:55 PM EST ----- Message from Emma Schultz MD sent at 06/11/2022 2:00 PM EST ----- No suggestion of any inflammation and the test for rheumatoid arthritis are negative documented in this encounterCity Hospital12-08-2022 History of Present illness Narrative* Dilia Garcia RT(R) - 06/10/2022 12:30 PM EST Radiology Service Progress Note PATIENT NAME: Ursula Lane DATE OF SERVICE: June 10, 2022 TIME: 12:37 PM PATIENT IDENTITY VERIFICATION COMPLETED USING TWO (2) IDENTIFIERS: Name and Date of confirmedby patient verbally. FALL SCREENING: Has the patient had 2 falls in the last year or 1 fall with injury or currently using an Ambulatory Assistive Device (Walker, Cane, Wheelchair, Crutches, etc.)? No PATIENT GENDER DATA: Female. status: : No status: NO. PATIENT RELEVANT IMPLANT DATA REVIEWED: Yes RADIOLOGY DEPARTMENT: General X-ray: Exam(s) Completed: Upper Extremity X- Ray(s): Hand, right PERIPHERAL IV DATA: Not applicable SIGNED BY: RT Daniele(R) June 10, 2022 12:37 PM documented in this encounterCity Hospital12-08-2022 History of Present illness Narrative* Emma Schultz MD - 06/10/2022 11:26 AM EST Reason for Visit Patient presents with: Recheck: [address] is a 71 year old female who presents here today for Above Complaints.. Health Maintenance HEPATITIS C SCREENING DTAP,TDAP,TD(1 - Tdap) COLORECTAL CANCER SCREENING SHINGRIX VACCINE(1 of 2) PNEUMOCOCCAL: 65+(2 - PCV) MAMMOGRAM HPI HYPERTENSION: BP stable today at 118/70. Checks BP at home on occasion. 2 bout of sharp chest pain for a couple of seconds. Last episode was 2-3 weeks ago. No palpitations. No lower edema. No SOB. Tolerating all medications well. Hypothyroid: Recent labs 3 weeks ago increased TSH to 4.540 from 1.560 6 months ago. Patient deniesmissing any doses. Tolerating meds well. Hypercholesteremia: Stable. Tolerating crestor well. MSK: Gradual worsening of hands in the last couple of months. Lasts for 2 weeks at a time. Increased swelling with intermittent redness. Warm/hot and painful to touch. Mild peeling of the skin noted.Hx of OA. Limited / restrictive mobility. Denies numbness. Mild intermittent tingling at times. 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 She does have stiffness in the morning, it lasts around half hour, chadian food causes swelling. Hx of RLS - improving. Occasional cramping at HS. No problem-specific Assessment & Plan notes found for this encounter. PAST MEDICAL HISTORY Diagnosis Date Disorder of thyroid Irregular heart beat Migraine, intractable No past surgical history on file. No family history on file. Social History Tobacco Use Smoking status: Never Smokeless tobacco: Never Vaping Use Vaping Use: Never used Substance Use Topics Alcohol use: Yes Alcohol/week: 1.0 standard drink Types: 1 Glasses of Wine (5oz) per week Comment: at dinner Drug use: Never Past medical history, appointments, medications, allergies reviewed. Pertinent Lab/Diagnostic Studies are reviewed and discussed today Current Outpatient Medications: acebutolol (SECTRAL) 200 mg capsule rosuvastatin (CRESTOR) 10 mg tablet levothyroxine (LEVOXYL) 50 mcg tablet azelastine (ASTELIN) 0.1% nasal spray SUMAtriptan (IMITREX) 20 mg/actuation nasal spray niacin (NIACIN) 500 mg tablet lecithin 1,000 mg chew ubidecarenone Q-10 (COENZYME Q-10) 10 mg cap VIT D3-FOLIC POML-[id number]-B12 ORAL GAMMA-AMINOBUTYRIC ACID, BULK, MISC polyethylene glycol 3350 (MIRALAX ORAL) glucosam/chond-msm1/C/castro/bor (FIUUFEUWLTV-MWEOB-WAD COMPLEX ORAL) magnesium glycinate (MAG GLYCINATE ORAL) albuterol HFA (VENTOLIN HFA) 90 mcg/actuation inhaler aspirin 81 mg chewable tablet montelukast (SINGULAIR) 10 mg tablet Review of Systems CONSTITUTIONAL: No fevers, chills night sweats, unintended weight loss CARDIOVASCULAR: No chest pain, dyspnea, palpitations, orthopnea, PND, ankle edema. PULM: No dyspnea. Occasional dry cough while lying down. GI: No dysphagia/odynophagia, problematic reflux, constipation, diarrhea, changes in stool habits, hematochezia, melena. : No new urinary complaints, including dysuria, gross hematuria or pyuria. NEURO: No new balance problems. Peripheral hand weakness/paresthesias. Physical Exam BP 118/70 Pulse 66 Resp 16 Wt 59.9 kg (132 lb) SpO2 98% BMI 22.66 kg/m General appearance: Well appearing, alert, in no acute distress, well nourished. Skin: Skin color, texture, turgor normal, no suspicious rashes or lesions Head: Normocephalic, no masses, lesions, tenderness or abnormalities Eyes: Anicteric sclera. Pupils are equally round and reactive to light. Extraocular movements are intact. Lungs: Lungs clear to auscultation. No wheezing, rhonchi, rales Heart: RRR without murmur, gallop, or rubs. Extremities: No deformities, edema, skin discoloration, clubbing or cyanosis. Good capillary refill. Today she does not have sinovytis. ASSESSMENT/PLAN: 1. Hand arthritis - ICD9: 716.94, ICD10: M19.049 (primary diagnosis) - RHEUMATOID FACTOR BL - SED RATE WESTERGREN - C-REACTIVE PROTEIN (CRP) - XR HAND GENERAL 3V PA/LAT/OBL RIGHT 2. Hypothyroidism, unspecified type - ICD9: 244.9, ICD10: E03.9 - Instructed patient on importance of taking on an empty stomach either first thing in the morning or at bedtime. Stable - Behavioral intervention Increased thyroid dose. 3. Mixed hyperlipidemia - ICD9: 272.2, ICD10: E78.2 - good control - Continue current medication. 4. Cardiac arrhythmia, unspecified cardiac arrhythmia type - ICD9: 427.9, ICD10: I49.9 Cont acebutalol Emma Schultz MD documented in this encounterCity Hospital12-07-2022 Miscellaneous Notes* Telephone Encounter - Layla Colvin LPN - 06/09/2022 8:33 AM EST Patient has been identified by name and date of : Yes Pharmacy phones for refill(s): Requested Prescriptions Pending Prescriptions Disp Refills acebutolol (SECTRAL) 200 mg capsule [Pharmacy Med Name: ACEBUTOLOL CAP 200MG] 180 capsule 1 Sig: TAKE 1 CAPSULE TWICE DAILY Date of last office visit in primary care: 04/07/22 next apt 06/10/22 Last 2 Encounter Wt Readings: Date: Wt: 04/07/2022 59.9 kg (132 lb) 02/19/2022 59 kg (130 lb) Previous labs/tests for medication: Not applicable Thank you. Layla Colvin LPN documented in this encounterCity Hospital11-09-2022 Miscellaneous Notes* Telephone Encounter - Alicja Velasquez RN - 05/12/2022 3:57 PM EST Patient returns calls and provider message given. Lab appointment scheduled for May 19 at 745 am. Alicja Velasquez RN * Telephone Encounter - Lida Wilcox RN - 05/12/2022 2:39 PM EST Message left for patient to call PCP office and ask for a nurse for provider's message. Lida Wilcox RN * Telephone Encounter - Jessica Concepcion APRN.CNP - 05/12/2022 2:20 PM EST Fasting lab orders have been placed. Please let patient know. Thank you Jessica Concepcion APRN.CNP * Telephone Encounter - Lida Wilcox RN - 05/12/2022 9:03 AM EST Patient calling and states she has an appt with Dr. Schultz on 06/10/22. Asking if provider would liketo order any blood work prior to appt? Please call patient with update. Thank you. documented in this encounterCity Hospital10-13-2022 Miscellaneous Notes* Telephone Encounter - Franci Oneil LPN - 04/15/2022 11:31 AM EDT Patient notified of providers message and verbalized understanding * Telephone Encounter - Emma Schultz MD - 04/14/2022 7:51 PM EDT Yes, finish the antibiotic and I hope it helped Regards, Emma Schultz MD * Telephone Encounter - Franci Oneil LPN - 04/13/2022 9:07 AM EDT Patient is notified of providers message and verbalized understanding. Provider had patient start an antibiotic on , she is wanting to know if she should finish prescription. Please advise * Telephone Encounter - Emma Schultz MD - 04/12/2022 10:47 PM EDT Please let patient know that her nerves at 3 levels that are mentioned are pinched And that is probably some of her explanation to some of the hand numbness, tingling or pain or burning. I hope the swelling in the middle fingers. Regards, Emma Schultz MD * Telephone Encounter - Tiesha Molina LPN - 04/12/2022 10:45 AM EDT Pt is calling for an explanation of Xray results from 04/07/22. Pt reports the results are in butshe needs results explained. Tiesha Molina LPN documented in this encounterCity Hospital10-11-2022 Miscellaneous Notes* Telephone Encounter - Lissa Brand LPN - 04/13/2022 12:04 PM EDT Patient notified. Lissa Brand LPN * Telephone Encounter - Lissa Brand LPN - 04/13/2022 12:02 PM EDT ----- Message from Emma Schultz MD sent at 04/12/2022 8:02 AM EDT ----- No culture growth. documented in this encounterCity Hospital10-10-2022 Miscellaneous Notes* Telephone Encounter - Tiesha Molina LPN - 04/12/2022 10:44 AM EDT Images from the original note were not included. Pt calls for the following lab results: Emma Schultz MD 04/12/2022 8:02 AM EDT Back to Top No culture growth. Pt notified of same. Tiesha Molina LPN documented in this [facility]10-05-2022 History of Present illness Narrative* Emma Schultz MD - 04/07/2022 3:54 PM EDT Reason for Visit Patient presents with: Same Day Appointment: left hand swollen and red,tight,painful since Tuesday Ursula Lane is a 71 year old female who presents here today for Above Complaints.. Health Maintenance HEPATITIS C SCREENING DTAP,TDAP,TD(1 - Tdap) COLORECTAL CANCER SCREENING SHINGRIX VACCINE(1 of 2) PNEUMOCOCCAL: 65+(2 - PCV) DEPRESSION ASSESSMENT HPI On Tuesday work up with pain in the left ring finger, progressed to throbbing , around the same timeshe has numbness The finger began to swell up visibly and throbbing. 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 Both the hands last night were aching She also thought she had an infected in the implanted too that got better with a little bit of Salt water and cleaning. No fever or chills. She is feeling more tired than she normally does since Tuesday She also had company recently. Patient agrees to having neck issues on and off too and knows that nerves in the neck can cause herto have issues No problem-specific Assessment & Plan notes found for this encounter. PAST MEDICAL HISTORY Diagnosis Date Disorder of thyroid Irregular heart beat Migraine, intractable No past surgical history on file. No family history on file. Social History Tobacco Use Smoking status: Never Smokeless tobacco: Never Vaping Use Vaping Use: Never used Substance Use Topics Alcohol use: Yes Alcohol/week: 1.0 standard drink Types: 1 Glasses of Wine (5oz) per week Comment: at dinner Drug use: Never Past medical history, appointments, medications, allergies reviewed. Pertinent Lab/Diagnostic Studies are reviewed and discussed today Current Outpatient Medications: rosuvastatin (CRESTOR) 10 mg tablet levothyroxine (LEVOXYL) 50 mcg tablet acebutolol (SECTRAL) 200 mg capsule azelastine (ASTELIN) 0.1% nasal spray SUMAtriptan (IMITREX) 20 mg/actuation nasal spray aspirin 81 mg chewable tablet niacin (NIACIN) 500 mg tablet lecithin 1,000 mg chew ubidecarenone Q-10 (CO Q-10) 10 mg cap VIT D3-FOLIC TAGA-G6-J4-B12 ORAL GAMMA-AMINOBUTYRIC ACID, BULK, MISC polyethylene glycol 3350 (MIRALAX ORAL) glucosam/chond-msm1/C/castro/bor (LVBKCOLKFVS-JKLZL-HKD COMPLEX ORAL) magnesium glycinate (MAG GLYCINATE ORAL) montelukast (SINGULAIR) 10 mg tablet albuterol HFA (VENTOLIN HFA) 90 mcg/actuation inhaler Review of Systems CONSTITUTIONAL: No fevers, chills night sweats, unintended weight loss CARDIOVASCULAR: No chest pain, dyspnea, palpitations, orthopnea, PND, ankle edema. PULM: No dyspnea, unexplained cough. GI: No dysphagia/odynophagia, problematic reflux, constipation, diarrhea, changes in stool habits, hematochezia, melena. : No new urinary complaints, including dysuria, gross hematuria or pyuria. NEURO: No new balance problems, peripheral weakness/paresthesias or numbness of concern. Physical Exam BP 122/64 (BP Site: Left Arm, BP Position: Sitting, BP Cuff Size: Large Adult) Pulse 62 Temp 36.9 C (98.5 F) Resp 12 Ht 162.6 cm (5' 4") Wt 59.9 kg (132 lb) SpO2 100% BMI 22.66 kg/m General appearance: Well appearing, alert, in no acute distress, well nourished. Skin: Skin color, texture, turgor normal, no suspicious rashes or lesions Head: Normocephalic, no masses, lesions, tenderness or abnormalities Eyes: Anicteric sclera. Pupils are equally round and reactive to light. Extraocular movements are intact. Lungs: Lungs clear to auscultation. No wheezing, rhonchi, rales Heart: RRR without murmur, gallop, or rubs. Finger tips lobito the left side is def swollen. the left ring finger. Its tender but there are no janeway lesions or oslor spots ASSESSMENT/PLAN: 1. Pain in finger of both hands - ICD9: 729.5, ICD10: M79.645, M79.644 (primary diagnosis) R/o endocarditis because no obvious injury but it did look swollen and injured - BLOOD CULTURe 2. Other fatigue - ICD9: 780.79, ICD10: R53.83 - BLOOD CULTURE 3. Infected tooth - ICD9: 522.4, ICD10: K04.7 - BLOOD CULTURE 4. Numbness and tingling in left hand - ICD9: 782.0, ICD10: R20.0, R20.2 Emma Schultz MD documented in this encounterCity Hospital08-19-2022 History of Present illness Narrative* Jessica Carlene, 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 - 02/19/2022 11:23 AM EDT CC: Patient presents with: Recheck: Tic bite found embedded arm pit this morning HPI Ursula Lane is a 71 year old female who presents today for A tick bite Found a tick in her left axillae this AM. Unsure on how long it was there, but has been working in the yard. Concerned the ticks head is still embedded in arm pit. 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 States she did look at the tick under a microscope and it is a small flat deer tick missing its head. Denies redness, swelling, pain fever, or any other concerns. REVIEW OF SYSTEMS General: no fevers, no chills, no night sweats, no recurrent infections, no change in appetite, no change in energy, and no significant changes in weight Respiratory: no cough, no wheezing, no shortness of breath, no hemoptysis Cardiovascular: no chest pain, no chest pressure, no palpitations, and no swelling PAST MEDICAL HISTORY Diagnosis Date Disorder of thyroid Irregular heart beat Migraine, intractable No past surgical history on file. ALLERGIES Boniva [Ibandronate], Fosamax [Alendronate], and Dkdtvyn-Fpd-Lct Reductase Inhibitors MEDICATIONS rosuvastatin (CRESTOR) 10 mg tablet Take 1 tablet by mouth once daily. levothyroxine (LEVOXYL) 50 mcg tablet Take 1 tablet by mouth once daily. Take on empty stomach. ForThyroid acebutolol (SECTRAL) 200 mg capsule Take 1 capsule by mouth twice daily. azelastine (ASTELIN) 0.1% nasal spray Use 1 [place] in each nostril twice daily. SUMAtriptan (IMITREX) 20 mg/actuation nasal spray Use 20 Sprays in the nose as needed. aspirin 81 mg chewable tablet Take 81 mg by mouth once daily. niacin (NIACIN) 500 mg tablet Take 500 mg by mouth daily with breakfast. lecithin 1,000 mg chew Take 600 mg by mouth once daily. ubidecarenone Q-10 (CO Q-10) 10 mg cap Take by mouth twice daily. VIT D3-FOLIC LDCI-R0-T0-B12 ORAL Take by mouth. GAMMA-AMINOBUTYRIC ACID, BULK, MISC polyethylene glycol 3350 (MIRALAX ORAL) Take by mouth. glucosam/chond-msm1/C/castro/bor (BDVWUFEKDYB-QNOEF-EKT COMPLEX ORAL) Take by mouth. magnesium glycinate (MAG GLYCINATE ORAL) Take by mouth. montelukast (SINGULAIR) 10 mg tablet Take 1 tablet by mouth daily at bedtime. albuterol HFA (VENTOLIN HFA) 90 mcg/actuation inhaler Inhale 2 Puffs as instructed every 4 hours asneeded for wheezing/shortness of breath. No family history on file. Social History Tobacco Use Smoking status: Never Smokeless tobacco: Never Vaping Use Vaping Use: Never used Substance Use Topics Alcohol use: Yes Alcohol/week: 1.0 standard drink Types: 1 Glasses of Wine (5oz) per week Comment: at dinner Drug use: Never PHYSICAL EXAM BP 122/68 Pulse (!) 56 Resp 16 Wt 59 kg (130 lb) BMI 22.31 kg/m General Appearance: well appearing, in no acute distress, alert Skin: left axillae with erythema and an elevated soft non tender center. No head or debris noted inwound but positive for small open area and clear drainage Eyes: conjunctiva pink and moist, no icterus, sclera white, non-injected Health maintenance reviewed with patient: DEPRESSION SCREENING Never done HEPATITIS C SCREENING Never done DTAP,TDAP,TD(1 - Tdap) Never done COLORECTAL CANCER SCREENING Never done SHINGRIX VACCINE(1 of 2) Never done PNEUMOCOCCAL: 65+(2 - PCV) due on 03/28/2021 INFLUENZA(1) due on 03/04/2022 MAMMOGRAM due on 07/09/2022 ANNUAL PCP TEAM CHRONIC DISEASE VISIT due on 12/08/2022 DIABETES SCREEN due on 12/18/2024 LIPID SCREEN due on 12/02/2026 BONE DENSITY Completed ADVANCE DIRECTIVE DISCUSSION Completed COVID-19 VACCINE Completed DATA REVIEWED: No new labs ASSESSMENT/PLAN: 1. Tick bite, unspecified site, initial encounter - ICD9: 919.4, E906.4, ICD10: W57.XXXA (primary diagnosis) - difficult to view what kind of tick, but patient certain it is a deer tick and unsure length of attachment. Skin appears infected at attachment site. Will go ahead and prescribe doxy for skin infection along with lyme coverage. - follow up if no improvement 2. Skin infection - ICD9: 686.9, ICD10: L08.9 As above Prescription instructions reviewed with patient as applicable. Potential red flag symptoms discussed with the patient. Reviewed appropriate action plan to take if red flag symptoms occur. Patient agreeable to treatment plan. Jessica Concepcion APRN.CNP documented in this encounterCity Hospital08-04-2022 Miscellaneous Notes* Telephone Encounter - Perlita Ingram Ma - 02/04/2022 3:28 PM EDT Spoke with patient, had intolerance to statins in past with leg cramps but has tolerated Crestor. Will call Pharmacy to fill * Telephone Encounter - Jessica Concepcion APRN.CNP - 02/04/2022 3:18 PM EDT Patient had requested a refill on this medication. Please call and verify she has been taking the rosuvastatin without issue. Thank you Jessica Concepcion APRN.CNP * Telephone Encounter - Yaritza Talamantse RN - 02/04/2022 1:33 PM EDT [facility], reports they put rosuvastatin on hold for now, as they show patient has allergy to statins. Will need verbal approval to dispense this medication to patient. Please phone [facility] with reference # [id number] with verbal. documented in this encounterCity Hospital08-01-2022 Miscellaneous Notes* Telephone Encounter - Linda Garza LPN -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 Federal Confidentiality of Alcohol and Drug Abuse Patient Records regulations: The Federal rules restrict any use of the information to criminally investigate or prosecute any alcohol or drug abuse patient.[facility]In the event this information is protected by the Federal Confidentiality of Alcohol and Drug Abuse Patient Records regulations: The Federal rules restrict any use of the information to criminally investigate or prosecute any alcohol or drug abuse patient.[facility]In the event this information is protected by the Federal Confidentiality of Alcohol and Drug Abuse Patient Records regulations: The Federal rules restrict any use of the information to criminally investigate or prosecute any alcohol or drug abuse patient.[facility]In the event this information is protected by the Federal Confidentiality of Alcohol and Drug Abuse Patient Records regulations: The Federal rules restrict any use of the information to criminally investigate or prosecute any alcohol or drug abuse patient.[facility] HospitalIn the event this information is protected by the Federal Confidentiality of Alcohol and Drug Abuse Patient Records regulations: The Federal rules restrict any use of the information to criminally investigate or prosecute any alcohol or drug abuse patient.[facility] HospitalIn the event this information is protected by the Federal Confidentiality of Alcohol and Drug Abuse Patient Records regulations: The Federal rules restrict any use of the information to criminally investigate or prosecute any alcohol or drug abuse patient.[facility] the event this information is protected by the Federal Confidentiality of Alcohol and Drug Abuse Patient Records regulations: The Federal rules restrict any use of the information to criminally investigate or prosecute any alcohol or drug abuse patient.[facility]In the event this information is protected by the Federal Confidentiality of Alcohol and Drug Abuse Patient Records regulations: The Federal rules restrict any use of the information to criminally investigate or prosecute any alcohol or drug abuse patient.[facility]In the event this information is protected by the Federal Confidentiality of Alcohol and Drug Abuse Patient Records regulations: The Federal rules restrict any use of the information to criminally investigate or prosecute any alcohol or drug abuse patient.[facility]In the event this information is protected by the Federal Confidentiality of Alcohol and Drug Abuse Patient Records regulations: The Federal rules restrict any use of the information to criminally investigate or prosecute any alcohol or drug abuse patient.[facility]In the event this information is protected by the Federal Confidentiality of Alcohol and Drug Abuse Patient Records regulations: The Federal rules restrict any use of the information to criminally investigate or prosecute any alcohol or drug abuse patient.[facility]In the event this information is protected by the Federal Confidentiality of Alcohol and Drug Abuse Patient Records regulations: The Federal rules restrict any use of the information to criminally investigate or prosecute any alcohol or drug abuse patient.[facility] HospitalIn the event this information is protected by the Federal Confidentiality of Alcohol and Drug Abuse Patient Records regulations: The Federal rules restrict any use of the information to criminally investigate or prosecute any alcohol or drug abuse patient.[facility] HospitalIn the event this information is protected by the Federal Confidentiality of Alcohol and Drug Abuse Patient Records regulations: The Federal rules restrict any use of the information to criminally investigate or prosecute any alcohol or drug abuse patient.[facility] HospitalIn the event this information is protected by the Federal Confidentiality of Alcohol and Drug Abuse Patient Records regulations: The Federal rules restrict any use of the information to criminally investigate or prosecute any alcohol or drug abuse patient.[facility]In the event this information is protected by the Federal Confidentiality of Alcohol and Drug Abuse Patient Records regulations: The Federal rules restrict any use of the information to criminally investigate or prosecute any alcohol or drug abuse patient.[facility] HospitalIn the event this information is protected by the Federal Confidentiality of Alcohol and Drug Abuse Patient Records regulations: The Federal rules restrict any use of the information to criminally investigate or prosecute any alcohol or drug abuse patient.[facility] HospitalIn the event this information is protected by the Federal Confidentiality of Alcohol and Drug Abuse Patient Records regulations: The Federal rules restrict any use of the information to criminally investigate or prosecute any alcohol or drug abuse patient.[facility]In the event this information is protected by the Federal Confidentiality of Alcohol and Drug Abuse Patient Records regulations: The Federal rules restrict any use of the information to criminally investigate or prosecute any alcohol or drug abuse patient.[facility] HospitalIn the event this information is protected by the Federal Confidentiality of Alcohol and Drug Abuse Patient Records regulations: The Federal rules restrict any use of the information to criminally investigate or prosecute any alcohol or drug abuse patient.[facility] HospitalIn the event this information is protected by the Federal Confidentiality of Alcohol and Drug Abuse Patient Records regulations: The Federal rules restrict any use of the information to criminally investigate or prosecute any alcohol or drug abuse patient.[facility] HospitalIn the event this information is protected by the Federal Confidentiality of Alcohol and Drug Abuse Patient Records regulations: The Federal rules restrict any use of the information to criminally investigate or prosecute any alcohol or drug abuse patient.[facility] HospitalIn the event this information is protected by the Federal Confidentiality of Alcohol and Drug Abuse Patient Records regulations: The Federal rules restrict any use of the information to criminally investigate or prosecute any alcohol or drug abuse patient.[facility]In the event this information is protected by the Federal Confidentiality of Alcohol and Drug Abuse Patient Records regulations: The Federal rules restrict any use of the information to criminally investigate or prosecute any alcohol or drug abuse patient.[facility]In the event this information is protected by the Federal Confidentiality of Alcohol and Drug Abuse Patient Records regulations: The Federal rules restrict any use of the information to criminally investigate or prosecute any alcohol or drug abuse patient.[facility]In the event this information is protected by the Federal Confidentiality of Alcohol and Drug Abuse Patient Records regulations: The Federal rules restrict any use of the information to criminally investigate or prosecute any alcohol or drug abuse patient.[facility]In the event this information is protected by the Federal Confidentiality of Alcohol and Drug Abuse Patient Records regulations: The Federal rules restrict any use of the information to criminally investigate or prosecute any alcohol or drug abuse patient.[facility] HospitalIn the event this information is protected by the Federal Confidentiality of Alcohol and Drug Abuse Patient Records regulations: The Federal rules restrict any use of the information to criminally investigate or prosecute any alcohol or drug abuse patient.[facility] HospitalIn the event this information is protected by the Federal Confidentiality of Alcohol and Drug Abuse Patient Records regulations: The Federal rules restrict any use of the information to criminally investigate or prosecute any alcohol or drug abuse patient.[facility] HospitalIn the event this information is protected by the Federal Confidentiality of Alcohol and Drug Abuse Patient Records regulations: The Federal rules restrict any use of the information to criminally investigate or prosecute any alcohol or drug abuse patient.[facility] HospitalIn the event this information is protected by the Federal Confidentiality of Alcohol and Drug Abuse Patient Records regulations: The Federal rules restrict any use of the information to criminally investigate or prosecute any alcohol or drug abuse patient.[facility] HospitalIn the event this information is protected by the Federal Confidentiality of Alcohol and Drug Abuse Patient Records regulations: The Federal rules restrict any use of the information to criminally investigate or prosecute any alcohol or drug abuse patient.[facility]In the event this information is protected by the Federal Confidentiality of Alcohol and Drug Abuse Patient Records regulations: The Federal rules restrict any use of the information to criminally investigate or prosecute any alcohol or drug abuse patient.[facility]In the event this information is protected by the Federal Confidentiality of Alcohol and Drug Abuse Patient Records regulations: The Federal rules restrict any use of the information to criminally investigate or prosecute any alcohol or drug abuse patient.[facility] HospitalIn the event this information is protected by the Federal Confidentiality of Alcohol and Drug Abuse Patient Records regulations: The Federal rules restrict any use of the information to criminally investigate or prosecute any alcohol or drug abuse patient.[facility] HospitalIn the event this information is protected by the Federal Confidentiality of Alcohol and Drug Abuse Patient Records regulations: The Federal rules restrict any use of the information to criminally investigate or prosecute any alcohol or drug abuse patient.[facility] HospitalIn the event this information is protected by the Federal Confidentiality of Alcohol and Drug Abuse Patient Records regulations: The Federal rules restrict any use of the information to criminally investigate or prosecute any alcohol or drug abuse patient.[facility] HospitalIn the event this information is protected by the Federal Confidentiality of Alcohol and Drug Abuse Patient Records regulations: The Federal rules restrict any use of the information to criminally investigate or prosecute any alcohol or drug abuse patient.[facility] HospitalIn the event this information is protected by the Federal Confidentiality of Alcohol and Drug Abuse Patient Records regulations: The Federal rules restrict any use of the information to criminally investigate or prosecute any alcohol or drug abuse patient.[facility] HospitalIn the event this information is protected by the Federal Confidentiality of Alcohol and Drug Abuse Patient Records regulations: The Federal rules restrict any use of the information to criminally investigate or prosecute any alcohol or drug abuse patient.[facility] HospitalIn the event this information is protected by the Federal Confidentiality of Alcohol and Drug Abuse Patient Records regulations: The Federal rules restrict any use of the information to criminally investigate or prosecute any alcohol or drug abuse patient.[facility] HospitalIn the event this information is protected by the Federal Confidentiality of Alcohol and Drug Abuse Patient Records regulations: The Federal rules restrict any use of the information to criminally investigate or prosecute any alcohol or drug abuse patient.[facility]In the event this information is protected by the Federal Confidentiality of Alcohol and Drug Abuse Patient Records regulations: The Federal rules restrict any use of the information to criminally investigate or prosecute any alcohol or drug abuse patient.[facility] HospitalIn the event this information is protected by the Federal Confidentiality of Alcohol and Drug Abuse Patient Records regulations: The Federal rules restrict any use of the information to criminally investigate or prosecute any alcohol or drug abuse patient.[facility] HospitalIn the event this information is protected by the Federal Confidentiality of Alcohol and Drug Abuse Patient Records regulations: The Federal rules restrict any use of the information to criminally investigate or prosecute any alcohol or drug abuse patient.[facility] HospitalIn the event this information is protected by the Federal Confidentiality of Alcohol and Drug Abuse Patient Records regulations: The Federal rules restrict any use of the information to criminally investigate or prosecute any alcohol or drug abuse patient.[facility] HospitalIn the event this information is protected by the Federal Confidentiality of Alcohol and Drug Abuse Patient Records regulations: The Federal rules restrict any use of the information to criminally investigate or prosecute any alcohol or drug abuse patient.[facility] HospitalIn the event this information is protected by the Federal Confidentiality of Alcohol and Drug Abuse Patient Records regulations: The Federal rules restrict any use of the information to criminally investigate or prosecute any alcohol or drug abuse patient.[facility] HospitalIn the event this information is protected by the Federal Confidentiality of Alcohol and Drug Abuse Patient Records regulations: The Federal rules restrict any use of the information to criminally investigate or prosecute any alcohol or drug abuse patient.[facility] HospitalIn the event this information is protected by the Federal Confidentiality of Alcohol and Drug Abuse Patient Records regulations: The Federal rules restrict any use of the information to criminally investigate or prosecute any alcohol or drug abuse patient.[facility] HospitalIn the event this information is protected by the Federal Confidentiality of Alcohol and Drug Abuse Patient Records regulations: The Federal rules restrict any use of the information to criminally investigate or prosecute any alcohol or drug abuse patient.[facility] HospitalIn the event this information is protected by the Federal Confidentiality of Alcohol and Drug Abuse Patient Records regulations: The Federal rules restrict any use of the information to criminally investigate or prosecute any alcohol or drug abuse patient.[facility] HospitalIn the event this information is protected by the Federal Confidentiality of Alcohol and Drug Abuse Patient Records regulations: The Federal rules restrict any use of the information to criminally investigate or prosecute any alcohol or drug abuse patient.[facility] HospitalIn the event this information is protected by the Federal Confidentiality of Alcohol and Drug Abuse Patient Records regulations: The Federal rules restrict any use of the information to criminally investigate or prosecute any alcohol or drug abuse patient.[facility] HospitalIn the event this information is protected by the Federal Confidentiality of Alcohol and Drug Abuse Patient Records regulations: The Federal rules restrict any use of the information to criminally investigate or prosecute any alcohol or drug abuse patient.[facility] HospitalIn the event this information is protected by the Federal Confidentiality of Alcohol and Drug Abuse Patient Records regulations: The Federal rules restrict any use of the information to criminally investigate or prosecute any alcohol or drug abuse patient.[facility] the event this information is protected by the Federal Confidentiality of Alcohol and Drug Abuse Patient Records regulations: The Federal rules restrict any use of the information to criminally investigate or prosecute any alcohol or drug abuse patient.[facility] HospitalIn the event this information is protected by the Federal Confidentiality of Alcohol and Drug Abuse Patient Records regulations: The Federal rules restrict any use of the information to criminally investigate or prosecute any alcohol or drug abuse patient.[facility] HospitalIn the event this information is protected by the Federal Confidentiality of Alcohol and Drug Abuse Patient Records regulations: The Federal rules restrict any use of the information to criminally investigate or prosecute any alcohol or drug abuse patient.[facility] HospitalIn the event this information is protected by the Federal Confidentiality of Alcohol and Drug Abuse Patient Records regulations: The Federal rules restrict any use of the information to criminally investigate or prosecute any alcohol or drug abuse patient.[facility] HospitalIn the event this information is protected by the Federal Confidentiality of Alcohol and Drug Abuse Patient Records regulations: The Federal rules restrict any use of the information to criminally investigate or prosecute any alcohol or drug abuse patient.[facility] HospitalIn the event this information is protected by the Federal Confidentiality of Alcohol and Drug Abuse Patient Records regulations: The Federal rules restrict any use of the information to criminally investigate or prosecute any alcohol or drug abuse patient.[facility] HospitalIn the event this information is protected by the Federal Confidentiality of Alcohol and Drug Abuse Patient Records regulations: The Federal rules restrict any use of the information to criminally investigate or prosecute any alcohol or drug abuse patient.[facility] HospitalIn the event this information is protected by the Federal Confidentiality of Alcohol and Drug Abuse Patient Records regulations: The Federal rules restrict any use of the information to criminally investigate or prosecute any alcohol or drug abuse patient.[facility] HospitalIn the event this information is protected by the Federal Confidentiality of Alcohol and Drug Abuse Patient Records regulations: The Federal rules restrict any use of the information to criminally investigate or prosecute any alcohol or drug abuse patient.[facility] Reason for Visit (unrecogniz ed section and content) Reason Comments PT Discharge Specialty Diagnoses / Procedures Referred By Connie perkins Referred To Contact Physical Therapy / PHYSICAL THERAPY Diagnoses Acute pain of right shoulder RUE weakness Procedures EST RS PT ORTH MSK Jessica Concepcion APRN.AUTO SERVICE WRITER [address] [place] [address] Kostas Talbert, PT [address] [place] [address] Referral ID Status Reason Start Date Expiration Date V isits Requested Visits Authorized [id number] Authorized 07/04/2023 07/03/2024 99 99 Reason Comments Physical Therapy Specialty Diagnoses / Procedures Referred By Connie perkins Referred To Contact [facility] Diagnoses Acute pain of right shoulder RUE weakness Procedures CONSULT TO PHYSICAL THERAPY PHYSICAL THERAPY EVALUATION HIGH COMPLEX 45 MINS Jessica Concepcion, TEE.AUTO SERVICE WRITER [address] [place] [address] [address] Referral ID Status Reason Start Date Expiration Date Visits Requested Visits Authorized [id number] Authorized PCP Requested Referral Auto-Generate d Referral 10/28/2023 10/27/2024 99 99 Reason Comments PT Progress Note Specialty Diagnoses / Procedures Referred By Contac t Referred To Contact [facility] Diagnoses Degenerative disc disease, cervical Cervical spondylosis Procedures CONSULT TO PHYSICAL THERAPY PHYSICAL THERAPY EVALUATION HIGH COMPLEX 45 MINS Emma Schultz MD [address] [place] [address] [address] Referral ID Status Reason Start Date Expiration Date Visits Requested Visits Authorized [id number] Authorized PCP Requested Referral Auto-Generate d Referral 12/15/2022 12/15/2023 99 99 Reason Onset Date Comments Refill Request 10/10/2021 Reason Comments Medicare Wellness Exam exam- mulitple qu estions, review labs Reason Comments Patient Request Reason Onset Date Comments Refill Request 01/22/2022 Reason Onset Date Comments Refill Request 01/30/2022 Reason Comments Refill Request Reason Comments Medication Question Reason Comments Recheck Tic bite found embed ded arm pit this morning Reason Comments Same Day Appointment left hand swollen a nd red,tight,painful since Tuesday Reason Comments Results, Lab Reason Comments Results Reason Comments Xray Results Reason Comments Patient Question Reason Comments Recheck 6 month Reason Comments Orders Reason Comments results/question Reason Comments PT Eval Specialty Diagnoses / Procedures Referred By Contac t Referred To Contact [facility] Diagnoses Degenerative disc disease, cervical Cervical spondylosis Procedures CONSULT TO PHYSICAL THERAPY PHYSICAL THERAPY EVALUATION HIGH COMPLEX 45 MINS Emma Schultz MD [address] [place] [address] [address] Reason Comments Referral Request Reason Comments F/U 6 months Reason Onset Date Comments Refill Request 08/11/2023 Reason Comments Dry Cough Reason Comments Recheck 3 month follow up Reason Comments PT Eval Reason Comments Results Reason Onset Date Comments Refill Request 01/03/2024 Reason Comments Future Appointment Reason Comments left hand pain Reason Comments Covid Positive Reason Onset Date Comments Refill Request 07/27/2024 Reason Comments Med Change Request Reason Onset Date Comments Refill Request 08/27/2024 Reason Comments Orders Fax bone density to [facility] Reason Comments humming in right foot Lateral part of ri ght foot for 1 week, did not hurt it. Reason Comments Patient Update Reason Comments New Numbness Specialty Diagnoses / Procedures Referred By Contac t Referred To Contact Podiatry Diagnoses Numbness and tingling of foot Procedures CONSULT TO PODIATRY OFFICE/OUTPATIENT NEW HIGH MDM 60 MINUTES Emma Schultz MD [address] [place] [address] Phone: tel: fax: Referral ID Status Reason Start Date Expiration Date V isits Requested Visits Authorized [id number] Closed PCP Requested Referral 11/27/2024 11/27/2025 1 1 Reason Comments PAP Therapy Follow Up Reason Comments Insect Bite Possible tic bite on right lower rib/side area; red irritation to left buttock Reason Comments Reason Comments Fever Reason Comments Sleep Problem Had PSG here, states that the CPAP was denied and was sent here. Reason Comments Consult ENT Reason Comments Orders CPAP Reason Comments EMG Reason Comments Recheck 3 month follow up Reason Comments Medication Problem Reason Comments Palpitations This morning around 1am woke up with pounding in chest, apple watch showed afib, lasted until around 5am, fatigue, no cardiac sx currently Reason Comments Problem with CPAP machine orders re: CPA P machine Reason Comments Order for CPAP Reason Comments 4 week f/u Reason Comments consult Care Teams (unrecognized sec tion and content) Ui Developer Designer Relationship Specialty Start Date End Date Emma Schultz MD [address] [place], [place] [id number] PCP - General Internal Medicine 02/23/21 Ui Developer Designer Relationship Specialty Start Date End Date Emma Schultz MD [address] [place] [address] PCP - General Internal Medicine 02/23/21 Ui Developer Designer Relationship Specialty Start Date End Date Emma Schultz MD [address] [place] [address] PCP - General Internal Medicine 02/23/21 Ui Developer Designer Relationship Specialty Start Date End Date Emma Schultz MD [address] [place] [address] PCP - General Internal Medicine 02/23/21 Ui Developer Designer Relationship Specialty Start Date End Date Emma Schultz MD [address] [place] [address] PCP - General Internal Medicine 02/23/21 Ui Developer Designer Relationship Specialty Start Date End Date Emma Schultz MD [address] [place] [address] PCP - General Internal Medicine 02/23/21 Ui Developer Designer Relationship Specialty Start Date End Date Emma Schultz MD [address] [place] [address] PCP - General Internal Medicine 02/23/21 Ui Developer Designer Relationship Specialty Start Date End Date Emma Schultz MD [address] [facility] [place] [address] PCP - General Internal Medicine 02/23/21 Ui Developer Designer Relationship Specialty Start Date End Date Emma Schultz MD [address] [place] [address] PCP - General Internal Medicine 02/23/21 Ui Developer Designer Relationship Specialty Start Date End Date Emma Schultz MD [address] [place] [address] PCP - General Internal Medicine 02/23/21 Ui Developer Designer Relationship Specialty Start Date End Date Emma Schultz MD [address] [facility] [place] [address] PCP - General Internal Medicine 02/23/21 Ui Developer Designer Relationship Specialty Start Date End Date Emma Schultz MD [address] [facility] [place] [address] PCP - General Internal Medicine 02/23/21 Ui Developer Designer Relationship Specialty Start Date End Date Emma Schultz MD [address] [place] [address] PCP - General Internal Medicine 02/23/21 Ui Developer Designer Relationship Specialty Start Date End Date Emma Schultz MD [address] [place] [address] PCP - General Internal Medicine 02/23/21 Ui Developer Designer Relationship Specialty Start Date End Date Emma Schultz MD [address] [place] [address] PCP - General Internal Medicine 02/23/21 Ui Developer Designer Relationship Specialty Start Date End Date Emma Schultz MD [address] [place] [address] PCP - General Internal Medicine 02/23/21 Ui Developer Designer Relationship Specialty Start Date End Date Emma Schultz MD [address] [place] [address] PCP - General Internal Medicine 02/23/21 Ui Developer Designer Relationship Specialty Start Date End Date Emma Schultz MD [address] [place] [address] PCP - General Internal Medicine 02/23/21 Ui Developer Designer Relationship Specialty Start Date End Date Emma Schultz MD [address] [place] [address] PCP - General Internal Medicine 02/23/21 Ui Developer Designer Relationship Specialty Start Date End Date Emma Schultz MD [address] [place] [address] PCP - General Internal Medicine 02/23/21 Ui Developer Designer Relationship Specialty Start Date End Date Emma Schultz MD [address] [place] [address] PCP - General Internal Medicine 02/23/21 Ui Developer Designer Relationship Specialty Start Date End Date Emma Schultz MD [address] [place] [address] PCP - General Internal Medicine 02/23/21 Ui Developer Designer Relationship Specialty Start Date End Date Emma Schultz MD [address] [place] [address] PCP - General Internal Medicine 02/23/21 Ui Developer Designer Relationship Specialty Start Date End Date Emma Schultz MD [address] [place] [address] PCP - General Internal Medicine 02/23/21 Team Status: Active Member Role Status Dates Dr. Kaley Alexander MD Family Provider Active Dr. Emma Schultz MD Primary Care Provider Active Team Status: Inactive Member Role Status Dates Dr. Ilya Self MD Attending Provider, Referring Provider Active Dr. Emma Schultz MD Primary Care Provider Active Ui Developer Designer Relationship Specialty Start Date End Date Emma Schultz MD [address] [place] [address] PCP - General Internal Medicine 02/23/21 Ui Developer Designer Relationship Specialty Start Date End Date Emma Schultz MD [address] [place], [place] [address] PCP - General Internal Medicine 02/23/21 Ui Developer Designer Relationship Specialty Start Date End Date Emma Schultz MD [address] [place], [place] [phone] PCP - General Internal Medicine 02/23/21 Ui Developer Designer Relationship Specialty Start Date End Date Emma Schultz MD [address] [place] [address] PCP - General Internal Medicine 02/23/21 Ui Developer Designer Relationship Specialty Start Date End Date Emma Schultz MD [address] [place] [address] PCP - General Internal Medicine 02/23/21 Ui Developer Designer Relationship Specialty Start Date End Date Emma Schultz MD [address] [place] [address] PCP - General Internal Medicine 02/23/21 Ui Developer Designer Relationship Specialty Start Date End Date Emma Schultz MD [address] [place] [address] PCP - General Internal Medicine 02/23/21 Ui Developer Designer Relationship Specialty Start Date End Date Emma Schultz MD [address] [place] [address] PCP - General Internal Medicine 02/23/21 Ui Developer Designer Relationship Specialty Start Date End Date Emma Schultz MD [address] [place] [address] PCP - General Internal Medicine 02/23/21 Ui Developer Designer Relationship Specialty Start Date End Date Emma Schultz MD [address] [place] [address] PCP - General Internal Medicine 02/23/21 Ui Developer Designer Relationship Specialty Start Date End Date Emma Schultz MD [address] [facility] [place] [place] [address] PCP - General Internal Medicine 02/23/21 Ui Developer Designer Relationship Specialty Start Date End Date Emma Schultz MD [address] [facility] [place] [place] [address] PCP - General Internal Medicine 02/23/21 Ui Developer Designer Relationship Specialty Start Date End Date Emma Schultz MD [address] [facility] [place] [address] PCP - General Internal Medicine 02/23/21 Ui Developer Designer Relationship Specialty Start Date End Date Emma Schultz MD [address] [facility] [place] [address] PCP - General Internal Medicine 02/23/21 Ui Developer Designer Relationship Specialty Start Date End Date Emma Schultz MD [address] [facility] [place] [address] PCP - General Internal Medicine 02/23/21 Ui Developer Designer Relationship Specialty Start Date End Date Emma Schultz MD [address] [facility] [place] [address] PCP - General Internal Medicine 02/23/21 Ui Developer Designer Relationship Specialty Start Date End Date Emma Schultz MD [address] [facility] [place] [address] PCP - General Internal Medicine 02/23/21 Ui Developer Designer Relationship Specialty Start Date End Date Emma Schultz MD [address] [facility] [place] [address] PCP - General Internal Medicine 02/23/21 Ui Developer Designer Relationship Specialty Start Date End Date Emma Schultz MD [address] [facility] [place] [address] PCP - General Internal Medicine 02/23/21 Susu Rangel PA-C [address] [place] [address] Transportation Operations Manager Family Medicine 06/10/24 Jessica Concepcion APRN.AUTO SERVICE WRITER [address] [place] [address] Transportation Operations Manager Internal Medicine 06/10/24 Елена Pelletier PA-C [address] [place] [address] Transportation Operations Manager Family Medicine 06/10/24 Ui Developer Designer Relationship Specialty Start Date End Date Emma Schultz MD [address] [place] [address] PCP - General Internal Medicine 02/23/21 Susu Rangel PA-C [address] [place] [address] Transportation Operations Manager Family Medicine 06/10/24 Jessica Concepcion, TEE.AUTO SERVICE WRITER [address] [place] [address] Transportation Operations Manager Internal Medicine 06/10/24 Елена Pelletier PA-C [address] [place] [address] Transportation Operations Manager Family Medicine 06/10/24 Ui Developer Designer Relationship Specialty Start Date End Date Emma Schultz MD [address] [place], [place] [address] PCP - General Internal Medicine 02/23/21 Susu Ragnel PA-C [address] [place] [address] [facility] Family [facility] 06/10/24 Carlene, JessicaTEE.AUTO SERVICE WRITER [address] [place], [place] [id number] [facility] Internal Medicine 06/10/24 Елена Pelletier PA-C [address] [place], [place] [id number] [facility] 06/10/24 Team Status: Inactive Member Role Status Dates Dr. Emma Schultz MD Primary Care Provider Active Start: June 06, 2024 End: June 06, 2024 Dr. Emma Schultz MD Referring Provider Active Start: June 06, 2024 End: June 06, 2024 CARMELLA Corbin Attending Provider Active Start: June 06, 2024 End: June 06, 2024 Team Status: Inactive Member Role Status Dates Dr. Emma Schultz MD Primary Care Provider Active Start: September 04, 2024 End: September 04, 2024 Dr. Emma Schultz MD Referring Provider Active Start: September 04, 2024 End: September 04, 2024 CARMELLA Corbin Attending Provider Active Start: September 04, 2024 End: September 04, 2024 Team Status: Inactive Member Role Status Dates Dr. Emma Schultz MD Primary Care Provider Active Start: September 11, 2024 End: September 11, 2024 CARMELLA Corbin Attending Provider Active Start: September 11, 2024 End: September 11, 2024 CARMELLA Corbin Referring Provider Active Start: September 11, 2024 End: September 11, 2024 Ui Developer Designer Relationship Specialty Start Date End Date Emma Schultz MD [address] [place], [place] [id number] PCP - General Internal Medicine 02/23/21 Jessica Concepcion APRN.AUTO SERVICE WRITER [address] [place] [address] Transportation Operations Manager Internal Medicine 06/10/24 Ui Developer Designer Relationship Specialty Start Date End Date Emma Schultz MD [address] [place] [address] PCP - General Internal Medicine 02/23/21 Jessica Concepcion APRN.AUTO SERVICE WRITER [address] [place] [address] Transportation Operations Manager Internal Medicine 06/10/24 Ui Developer Designer Relationship Specialty Start Date End Date Emma Schultz MD [address] [place] [address] PCP - General Internal Medicine 02/23/21 Jessica Concepcion APRN.AUTO SERVICE WRITER [address] [place] [address] Transportation Operations Manager Internal Medicine 06/10/24 Ui Developer Designer Relationship Specialty Start Date End Date Emma Schultz MD [address] [place] [address] PCP - General Internal Medicine 02/23/21 Jessica Concepcion APRN.AUTO SERVICE WRITER [address] [place] [address] Transportation Operations Manager Internal Medicine 06/10/24 Ui Developer Designer Relationship Specialty Start Date End Date Emma Schultz MD [address] [place] [address] PCP - General Internal Medicine 02/23/21 Jessica Concepcion 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 [address] [facility] [place] [place] [address] Transportation Operations Manager Internal Medicine 06/10/24 Ui Developer Designer Relationship Specialty Start Date End Date Emma Schultz MD [address] [facility] [place] [address] PCP - General Internal Medicine 02/23/21 Jessica Concepcion 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 [address] [facility] [place] [address] Transportation Operations Manager Internal Medicine 06/10/24 Ui Developer Designer Relationship Specialty Start Date End Date Emma Schultz MD [address] [facility] [place] [address] PCP - General Internal Medicine 02/23/21 Jessica Concepcion, 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 [address] [facility] [place] [place] [address] Transportation Operations Manager Internal Medicine 06/10/24 Ui Developer Designer Relationship Specialty Start Date End Date Emma Schultz MD [address] [facility] [place] [address] PCP - General Internal Medicine 02/23/21 Jessica Concepcion, 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 [address] [facility] [place] [place] [address] Transportation Operations Manager Internal Medicine 06/10/24 Ui Developer Designer Relationship Specialty Start Date End Date Emma Schultz MD [address] [facility] [place] [address] PCP - General Internal Medicine 02/23/21 Jessica Concepcion 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 [address] [place] [address] Transportation Operations Manager Internal Medicine 06/10/24 Ui Developer Designer Relationship Specialty Start Date End Date Emma Schultz MD [address] [place] [address] PCP - General Internal Medicine 02/23/21 Jessica Concepcion APRN.AUTO SERVICE WRITER [address] [place] [address] Transportation Operations Manager Internal Medicine 06/10/24 Ui Developer Designer Relationship Specialty Start Date End Date Emma Schultz MD [address] [place] [address] PCP - General Internal Medicine 02/23/21 Jessica Concepcion APRN.AUTO SERVICE WRITER [address] [place] [address] Transportation Operations Manager Internal Medicine 06/10/24 Ui Developer Designer Relationship Specialty Start Date End Date Emma Schultz MD [address] [place] [address] PCP - General Internal Medicine 02/23/21 Jessica Concepcion APRN.AUTO SERVICE WRITER [address] [place] [address] Transportation Operations Manager Internal Medicine 06/10/24 Ui Developer Designer Relationship Specialty Start Date End Date Emma Schultz MD [address] [place] [address] PCP - General Internal Medicine 02/23/21 Jessica Concepcion APRN.AUTO SERVICE WRITER [address] [place] [address] Transportation Operations Manager Internal Medicine 06/10/24 Ui Developer Designer Relationship Specialty Start Date End Date Emma Schultz MD [address] [place] [address] PCP - General Internal Medicine 02/23/21 Older, Jessica, 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 [address] [place] [address] Transportation Operations Manager Internal [facility] 06/10/24 Ui Developer Designer Relationship Specialty Start Date End Date Emma Schultz MD [address] [place] [address] PCP - General Internal Medicine 02/23/21 Older, Jessica, 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 [address] [place] [address] Transportation Operations Manager Internal Medicine 06/10/24 Team Status: Active Member Role/Relationship Status Dates Dr. Emma Schultz MD Primary Care Provider Active Team Status: Inactive Member Role/Relationship Status Dates Dr. Emma Schultz MD Primary Care Provider Active Start: September 11, 2024 End: September 11, 2024 CARMELLA Corbin Attending Provider Active Start: September 11, 2024 End: September 11, 2024 CARMELLA Corbin Referring Provider Active Start: September 11, 2024 End: September 11, 2024 Team Status: Inactive Member Role/Relationship Status Dates Dr. Emma Schultz MD Primary Care Provider Active Start: January 02, 2025 End: January 02, 2025 Dr. Alize Yuan DPM Attending Provider Active Start: January 02, 2025 End: January 02, 2025 Dr. Alize Yuan DPM Referring Provider Active Start: January 02, 2025 End: January 02, 2025 Team Status: Active Member Role/Relationship Status Dates Dr. Emma Schultz MD Primary Care Provider Active Start: January 02, 2025 Dr. Alize Yuan DPM Referring Provider Active Start: January 02, 2025 Dr. Alize Yuan DPM Other Provider Active Start: January 02, 2025 Dr. Manuel Franklin MD Attending Provider Active S tart: January 02, 2025 Ui Developer Designer Relationship Specialty Start Date End Date Emma Schultz MD [address] [facility] [place] [address] PCP - General Internal Medicine 02/23/21 Jessica Concepcion 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 [address] [facility] [place] [place] [address] Transportation Operations Manager Internal Medicine 06/10/24 Ui Developer Designer Relationship Specialty Start Date End Date Emma Schultz MD [address] [facility] [facility] [place] [address] PCP - General Internal Medicine 02/23/21 Jessica Concepcion, 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 [address] [facility] [place] [place] [address] Transportation Operations Manager Internal Medicine 06/10/24 Ui Developer Designer Relationship Specialty Start Date End Date Emma Schultz MD [address] [facility] [place] [place] [address] PCP - General Internal Medicine 02/23/21 Jessica Concepcion, 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 [address] [facility] [place] [place] [address] Transportation Operations Manager Internal Medicine 06/10/24 Ui Developer Designer Relationship Specialty Start Date End Date Emma Schultz MD [address] [facility] [place] [place] [address] PCP - General Internal Medicine 02/23/21 Jessica Concepcion, 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 [address] [place] [address] Transportation Operations Manager Internal Medicine 06/10/24 Goals (unrecognized section and content) Goals may be documented in a n alternate sectionGoals may be documented in an alternate sectionGoals may be documented in an alternate section FOR RECORDS PERTAINING TO PATIENTS WHO ARE OR HAVE BEEN ENROLLED IN A CHEMICAL DEPENDENCY/SUBSTANCEABUSE PROGRAM, SOME INFORMATION MAY BE OMITTED. This clinical summary was aggregated from multiple sources. Caution should be exercised in using it in the provision of clinical care. This summary normalizes information from multiple sources, and as a consequence, information in this document may materially change the coding, format and clinical context of patient data. In addition, data may be omitted in some cases. CLINICAL DECISIONS SHOULD BE BASED ON THE PRIMARY CLINICAL RECORDS. [employer] [facility]. provides no warranty or guarantee of the accuracy or completeness of information in this document.
--- NOTE | 2025-05-10 06:37 | PCM.HP.STD ---
HPI - General General Date of Admission: 06/05/25 Date of Service: 05/10/25 Chief Complaint: Stewart's esophagus and dysphagia HPI Narrative ATIYA RAM, is a 74 F who presents [ Chief Complaint: dysphagia f/u [facility] established January 2024 with difficulty swallowing. EGD 03.23.24 Non-severe reflux esophagitis with no bleeding. Biopsied. - Ectopic gastric mucosa in the upper third of the esophagus. - Medium-sized hiatal hernia. - Multiple gastric polyps. - No gross lesions in the first portion of the duodenum. Last OV 06.06.24 Pt doing better since EGD. Having two episodes of dysphagia per week which is improved. Continue PPI BID. OV 09.04.24 Pt has been doing well with her dysphagia. She has not had further issues with this. She has noticed since starting PPI that she is more full in the evenings. She has had some issues with stool passage during urination. This was happening multiple times per day but has improved a little recently. Last colonoscopy was in 2018 with normal findings. ] [facility] Medical History Postsurgical retinal scar of right eye History of renal disease High cholesterol Sleep apnea History of echocardiogram Cardiology follow-up encounter History of atrial fibrillation Chest pain Lyme disease SVT (supraventricular tachycardia) Paroxysmal atrial fibrillation Insomnia Kidney stones Hypothyroidism SAIMA on CPAP PONV (postoperative nausea and vomiting) Wears glasses Depression Arthritis Chronic kidney disease (CKD) Restless legs Migraine headache Syncope History of IBS Heartburn Gastric reflux Non-smoker Chronic cough History of stress test (~2012) Home Medications Medication Instructions Recorded Last Taken Type coenzyme Q10 10 mg capsule 10 mg PO BID 02/27/24 05/07/25 History polyethylene glycol 3350 17 4 g PO DAILY 02/27/24 05/09/25 History gram/dose oral powder (Miralax) rosuvastatin 10 mg tablet 10 mg PO DAILY 02/27/24 05/09/25 History sumatriptan 20 mg/actuation nasal 20 mg intranasal Q2H PRN migraine 02/27/24 03/23/24 History spray headache vitamin B complex 1 cap PO DAILY 02/27/24 05/07/25 History antiarthritic combination no.2 900 900 mg PO DAILY 03/21/24 05/07/25 History mg tablet (glucosamine-chondroitin) magnesium glycinate 100 mg (as 100 mg PO DAILY 03/21/24 05/07/25 History glycinate) tablet Held on 05/07/25. Instructions: Ordered jzftvadxlctu-Gv-znbb-minerals 18 1 tab PO DAILY 03/21/24 05/07/25 History mg-0.4 mg tablet niacin 500 mg tablet 500 mg PO DAILY 03/21/24 05/07/25 History omega 3 350 mg-dha 235 mg-epa 90 1 cap PO DAILY 03/21/24 05/07/25 History mg-fish oil 597 mg capsule,delay rel ([place]-3) albuterol sulfate 90 mcg/actuation 2 puff inhalation Q4H PRN 04/19/25 05/09/25 History aerosol inhaler shortness of breath or wheezing apixaban 5 mg tablet (Eliquis) 5 mg PO BID 04/19/25 05/07/25 History azelastine 137 mcg (0.1 %) nasal 1 spray intranasal BID PRN allergy 04/19/25 05/09/25 History spray symptoms levothyroxine 50 mcg tablet 50 mcg PO QAM 04/19/25 05/09/25 History alpha lipoic acid 100 mg capsule 100 mg PO QDAY 04/25/25 05/07/25 History lecithin 500 mg PO DAILY 04/25/25 05/07/25 History metoprolol succinate 100 mg 100 mg PO QDAY #90 tabs 04/25/25 05/09/25 Rx tablet,extended release 24 hr Allergy/AdvReac Type Severity Reaction Status Date / Time ibandronate sodium Allergy Severe N/V/D Verified 05/10/25 06:36 Ybmuyua-ZVY-HpT Reductase Allergy Mild myalgia Verified 05/10/25 06:36 Inhibitor alendronate sodium Allergy Unknown Other Verified 05/10/25 06:36 Environmental Allergies: Allergy Unknown Other Verified 05/10/25 06:36 Uncoded (seasonal) gatifloxacin AdvReac Unknown Rash Verified 05/10/25 06:36 Family History Mother Heart disease CVA (cerebral vascular accident) Father Heart disease Myocardial infarction CVA (cerebral vascular accident) Surgical History History of esophagogastroduodenoscopy History of cataract surgery History of colonoscopy History of cystoscopy (2024) History of ankle surgery History of sinus surgery (~1999) History of cataract extraction with lens replacement Social History Smoking Status: Never smoker alcohol intake: never substance use type: does not use caffeine: No ROS Constitutional Constitutional: Denies fatigue, fever(s), poor appetite, weight gain or weight loss Gastrointestinal Gastrointestinal: Denies belching, bloating, change in bowel habits, change in stool character, chewing difficulty, coffee ground emesis, constipation, cramping, diarrhea, dyspepsia, dysphagia, early satiety, excessive flatus, fecal incontinence, heartburn, hematemesis, hematochezia, hemorrhoids, loose stools, melena, nausea, odynophagia, rectal bleeding, tenesmus, vomiting or weight changes Physical Exam Const alert, oriented x3, no apparent distress and healthy appearing General Appearance: cooperative GI normal to inspection, nondistended, normoactive bowel sounds, soft to palpation, non-tender and non-distended Percussion: normal to percussion Rectal Exam: deferred Assessment & Plan Assessment/Plan (1) Stewart esophagus: (2) Dysphagia: PLAN: Assessment and Plan Assessment and Plan (1) Loose stools: Status: Acute Plan: Pt is a 73 yo female pt here today for f/u regarding barrets esophagus and dysphagia. Pt has not had any issues with dysphagia. She continue Omeprazole 20 mg BID. She feels she gets more full in the evening since starting the PPI in the evening. She will start taking 40 mg omeprazole in the morning. We will consider GES in the future if these symptoms persist. SHe has been struggling the passage of stool with urination multiple times per day. This is new to her. Her last colonoscopy was in 2019 wit normal findings. I will order stool testing for infection or inflammation and consider colonoscopy pending these results. I recommended she start a fiber supplement. -Omeprazole 40 mg daily -Consider GES -Stool testing -Consider colonoscopy -Recoomended fiber supplement (2) Stewart esophagus: Status: Acute (3) Dysphagia: Status: Acute Orders: Orders ENTERIC PATHOGEN PANEL STOOL Today K58.9 - Irritable bowel syndrome, unspecified, R19.5 - Other fecal abnormalities Giardia Lamblia, Stool EIA Today R19.5 - Other fecal abnormalities Calprotectin, Stool Today R19.5 - Other fecal abnormalities CDIFF (PCR) Today R19.5 - Other fecal abnormalities Ova and Parasites [id number] Today K58.9 - Irritable bowel syndrome, unspecified, R19.5 - Other fecal abnormalities
[2025-05-10] MEDS: Lactated Ringers 1,000 ML 15 ML IV (06:41)
--- NOTE | 2025-05-10 06:55 | PCM.PRE.AN2 ---
ASA Classification* ASA Classification ASA Classification: 3 Assessment & Plan Anesthesia* Anesthesia Assessment Anesthesia Assessment: Discussed sedation and/or anesthesia options, risks, benefits, and alternatives with patient/parents/legal guardian/POA. Questions invited. The patient/parents/legal guardian/POA seems to understand and agrees to proceed with anesthesia plan. Reviewed the physical assessment, medical history, allergy history and patient home medications list prior to surgery/procedure/anesthetic and documented any changes. Performed airway and anesthesia risk assessments. Anesthesia Type Anesthesia Type: MAC History Source History Obtained from:: Patient and Chart Anesthesia Focused Assessment* Temperature: 97.9 F Pulse Rate: 52 Blood Pressure: 130/73 Respiratory Rate: 17 Pulse Ox: 100 Oxygen Delivery Method: Room Air Airway Assessment Mouth opens: >3 cm Mallampati Score: I Teeth Condition: Caps/Crowns (Patient has multiple crowns. They are tight.) and Missing (Top right molar is missing. 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 When Was Last Pacemaker Check QUESTION #4 FULL TEXT: You/Your Family Experience fever (hyperthermia) with Anesthesia Last Oral Intake Last Oral intake: Last Oral Intake NPO since 00:00 05/10/25 06:38 Meds taken in AM with sips of No 05/10/25 06:38 water? Meds patient instructed to take am of surgery PONV PONV - complex commercial litigation paralegal: PONV - complex commercial litigation paralegal Female Yes 05/07/25 13:09 HX of Motion Sickness Yes 05/07/25 13:09 HX of N/V After Surgery Yes 05/07/25 13:09 Non-Smoker No 05/07/25 13:09 Duration of Surgery greater No 05/07/25 13:09 than 60 minutes Number of Risk Factors 3 05/07/25 13:09 PONV Score Moderate Risk 05/07/25 13:09 Height & Weight Height & Weight: Anesthesia: Height & Weight Height 5 ft 3 in 05/10/25 06:38 Weight: 62.4 kg 05/10/25 06:38 Body Mass Index (BMI) 24.3 05/10/25 06:38 Respiratory Assessment Respiratory Assessment - complex commercial litigation paralegal: Respiratory Tract Infection Hx - complex commercial litigation paralegal Hx Respiratory Tract Infection No 05/07/25 13:09 STOP Sleep Apnea STOP Sleep Apnea - complex commercial litigation paralegal: STOP Sleep Apnea - complex commercial litigation paralegal Hx Hypertension No 05/07/25 13:09 Hx Sleep Apnea Yes 05/07/25 13:09 CPAP Yes 05/07/25 13:09 BIPAP No 05/07/25 13:09 Do you snore loudly (louder than talking or can be heard Do you often feel tired/ fatigued/ sleepy during daytime? Has anyone observed you stop breathing during sleep? STOP Results Positive 05/07/25 13:09 QUESTION #5 FULL TEXT : Do you snore loudly (louder than talking or can be heard through closed doors)? 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 Specify any problems Hx of Preganancy in last 3 N/A 05/07/25 13:09 Months Nurse Filling Out Transfusion JUICE 05/07/25 13:09 & Questions: Date: 05/07/25 05/07/25 13:09 Time: 13:20 05/07/25 13:09 Patient unable to answer at this time (ie. confused, unrespo /Reproduction History /Reproductive History - complex commercial litigation paralegal: /Reproductive Hx- complex commercial litigation paralegal Hx Now Gestational Age (in weeks): EDC: Hx Hx Para Hx Section SAB No 03/21/24 12:11 Does the father of the baby or his family experience fever w Father of the baby Malignant Hypertension history comment Active Medications Active Medications: Current Medications Generic Name Dose Route Start Last Admin Trade Name Freq PRN Reason Stop Dose Admin Lactated Ringer's 1,000 mls @ 15 mls/hr 05/10/25 06:30 05/10/25 06:41 IV 15 mls/hr .Q48H MARY Administration PFSH Medical History Postsurgical retinal scar of right eye History of renal disease High cholesterol Sleep apnea History of echocardiogram Cardiology follow-up encounter History of atrial fibrillation Chest pain Lyme disease SVT (supraventricular tachycardia) Paroxysmal atrial fibrillation Insomnia Kidney stones Hypothyroidism SAIMA on CPAP PONV (postoperative nausea and vomiting) Wears glasses Depression Arthritis Chronic kidney disease (CKD) Restless legs Migraine headache Syncope History of IBS Heartburn Gastric reflux Non-smoker Chronic cough History of stress test (~2012) Home Medications Medication Instructions Recorded Last Taken Type coenzyme Q10 10 mg capsule 10 mg PO BID 02/27/24 05/07/25 History polyethylene glycol 3350 17 4 g PO DAILY 02/27/24 05/09/25 History gram/dose oral powder (Miralax) rosuvastatin 10 mg tablet 10 mg PO DAILY 02/27/24 05/09/25 History sumatriptan 20 mg/actuation nasal 20 mg intranasal Q2H PRN migraine 02/27/24 03/23/24 History spray headache vitamin B complex 1 cap PO DAILY 02/27/24 05/07/25 History antiarthritic combination no.2 900 900 mg PO DAILY 03/21/24 05/07/25 History mg tablet (glucosamine-chondroitin) magnesium glycinate 100 mg (as 100 mg PO DAILY 03/21/24 05/07/25 History glycinate) tablet Held on 05/07/25. Instructions: Ordered sguvtzwkjnet-Ue-dtgs-minerals 18 1 tab PO DAILY 03/21/24 05/07/25 History mg-0.4 mg tablet niacin 500 mg tablet 500 mg PO DAILY 03/21/24 05/07/25 History omega 3 350 mg-dha 235 mg-epa 90 1 cap PO DAILY 03/21/24 05/07/25 History mg-fish oil 597 mg capsule,delay rel ([place]-3) albuterol sulfate 90 mcg/actuation 2 puff inhalation Q4H PRN 04/19/25 05/09/25 History aerosol inhaler shortness of breath or wheezing apixaban 5 mg tablet (Eliquis) 5 mg PO BID 04/19/25 05/07/25 History azelastine 137 mcg (0.1 %) nasal 1 spray intranasal BID PRN allergy 04/19/25 05/09/25 History spray symptoms levothyroxine 50 mcg tablet 50 mcg PO QAM 04/19/25 05/09/25 History alpha lipoic acid 100 mg capsule 100 mg PO QDAY 04/25/25 05/07/25 History lecithin 500 mg PO DAILY 04/25/25 05/07/25 History metoprolol succinate 100 mg 100 mg PO QDAY #90 tabs 04/25/25 05/09/25 Rx tablet,extended release 24 hr Allergy/AdvReac Type Severity Reaction Status Date / Time ibandronate sodium Allergy Severe N/V/D Verified 05/10/25 06:36 Ddedwgu-MWM-OcP Reductase Allergy Mild myalgia Verified 05/10/25 06:36 Inhibitor alendronate sodium Allergy Unknown Other Verified 05/10/25 06:36 Environmental Allergies: Allergy Unknown Other Verified 05/10/25 06:36 Uncoded (seasonal) gatifloxacin AdvReac Unknown Rash Verified 05/10/25 06:36 Family History Mother Heart disease CVA (cerebral vascular accident) Father Heart disease Myocardial infarction CVA (cerebral vascular accident) Surgical History History of esophagogastroduodenoscopy History of cataract surgery History of colonoscopy History of cystoscopy (2024) History of ankle surgery History of sinus surgery (~1999) History of cataract extraction with lens replacement Social History Smoking Status: Never smoker alcohol intake: never substance use type: does not use caffeine: No Review of Systems (Anesthesia) ROS Narrative System reviewed and no additional complaints, except as documented.
--- NOTE | 2025-05-10 07:00 | EGD_PTH ---
PATIENT: ATIYA RAM LOC: EN U#:[id number] AGE/SX: 74/F ROOM: RE05/10/[address]: Dr. Cole Schwartz DO : 1950 BED: DIS: 05/10/2025 SPEC #: [id number] RECD: 05/10/25 08:13 STATUS: MELISSA REMartin #: [id number] ALLAN: 05/10/25 07:[address]: Cole Schwartz DEPT: SURGICAL PATHOLOGY RECD BY: Chris Smith ENTERED: 05/10/25 09:50 SP TYPE: EGD BIOPSY LENCHO DR: Dr. Emma Bustamante MD Tissues: A - Esophagus, NOS Procedures: Surgery Specimen Level IV HEADER OPERATION: EGD with biopsy PRE-OP DIAGNOSIS: Stewart's esophagus, dysphagia TISSUE SUBMITTED: A- Distal esophagus biopsy MICROSCOPIC DIAGNOSIS A. Distal esophagus, biopsy: - Squamous mucosa with reactive changes, up to 6 eosinophils per high power field. - Stewart mucosa negative for dysplasia. MICROSCOPIC DESCRIPTION Slides are reviewed. GROSS DESCRIPTION A. Received in fixative is one container labeled with the patient's name and designated "Distal esophagus biopsy." The specimen consists of multiple irregular fragments of connor tissue that in aggregate measure 0.8 x 0.8 x 0.1 cm. The specimen is totally submitted in one cassette. UT 05/10/2025 CPT:50690
--- NOTE | 2025-05-10 07:34 | OP.EGD_ITS ---
Patient Name: Merlyn Evangelista Procedure Date: 05/10/2025 7:14 AM Date of : 1950 Age: 74 Procedure: Upper GI endoscopy Indications: Surveillance for malignancy due to personal history of Stewart's esophagus Providers: Cole Schwartz DO Referring MD: Emma Bustamante Medicines: Monitored Anesthesia Care Patient Profile: This is a 74 year old female. Refer to note in patient chart for documentation of history and physical. Patient has symptoms of chronic dysphagia and chronic heartburn. Complications: No immediate complications. Procedure: Pre-Anesthesia Assessment: - Prior to the procedure, a History and Physical was performed, and patient medications and allergies were reviewed. The patient is competent. The risks and benefits of the procedure and the sedation options and risks were discussed with the patient. All questions were answered and informed consent was obtained. Patient identification and proposed procedure were verified by the physician in the pre-procedure area. Mental Status Examination: alert and oriented. Airway Examination: normal oropharyngeal airway and neck mobility. Respiratory Examination: clear to auscultation. CV Examination: normal. Prophylactic Antibiotics: The patient does not require prophylactic antibiotics. Prior Anticoagulants: The patient has taken no anticoagulant or antiplatelet agents except for NSAID medication. ASA Grade Assessment: II - A patient with mild systemic disease. After reviewing the risks and benefits, the patient was deemed in satisfactory condition to undergo the procedure. The anesthesia plan was to use monitored anesthesia care (MAC). Immediately prior to administration of medications, the patient was re-assessed for adequacy to receive sedatives. The heart rate, respiratory rate, oxygen saturations, blood pressure, adequacy of pulmonary ventilation, and response to care were monitored throughout the procedure. The physical status of the patient was re-assessed after the procedure. After obtaining informed consent, the endoscope was passed under direct vision. Throughout the procedure, the patient's blood pressure, pulse, and oxygen saturations were monitored continuously. The Endoscope was introduced through the mouth, and advanced to the second part of duodenum. The upper GI endoscopy was accomplished without difficulty. The patient tolerated the procedure well. 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 The maximum longitudinal extent of these mucosal changes was 2 cm in length. Mucosa was biopsied with a cold forceps for histology in a targeted manner at intervals of 1 cm in the lower third of the esophagus. One specimen bottle was sent to pathology. Verification of patient identification for the specimen was done. Estimated blood loss was minimal. Multiple hyperplastic polyps with no bleeding and no stigmata of recent bleeding were found in the gastric body. No gross lesions were noted in the entire examined duodenum. Impression: - Esophageal mucosal changes secondary to established short-segment Stewart's disease. Biopsied. - Multiple gastric polyps. - No gross lesions in the entire examined duodenum. Recommendation: - Discharge patient to home. - Resume previous diet. - Continue present medications. - Await pathology results. Procedure Code(s): --- Professional --- 22979, Esophagogastroduodenoscopy, flexible, transoral; with biopsy, single or multiple CPT copyright 2021 [employer]. All rights reserved. The codes documented in this report are preliminary and upon afternoon babysitter review may be revised to meet current compliance requirements. Cole Schwartz DO 05/10/2025 7:33:29 AM This report has been signed electronically. Number of Addenda: 0 Note Initiated On: 05/10/2025 7:14 AM
--- NOTE | 2025-05-10 07:34 | OP.PROVAT_ITS ---
05/10/2025 Emma Bustamante [address] [place] [address] Re : Upper GI endoscopy procedure for Merlyn Evangelista Dear Dr. Bustamante This procedure was performed on Saturday, May 10, 2025. My impressions and recommendations are as follows: Impressions : - Esophageal mucosal changes secondary to established short-segment Stewart's disease. Biopsied. - Multiple gastric polyps. - No gross lesions in the entire examined duodenum. Recommendations : - Discharge patient to home. - Resume previous diet. - Continue present medications. - Await pathology results. My findings are described in the full procedure note, which is enclosed. If I can be of further assistance, please feel free to contact me at . Sincerely, Cole Schwartz, 05/10/2025 7:33:29 AM This report has been signed electronically.
--- NOTE | 2025-05-10 07:37 | PCM.POST.ANE ---
Anesthesia: Postop Eval I Current Vital Signs Temperature: 97.3 F Pulse Rate: 55 Blood Pressure: 82/49 Respiratory Rate: 16 Pulse Ox: 95 Oxygen Delivery Method: Room Air Assessment Airway patent: Yes Spontaneous unlabored respirations: Yes Mental status: Asleep nausea: No Vomiting: No Anesthesia Complication: No Fluid Hydration Crystalloid volume administer (ml): 400 Total IV fluid infused: 400 Progress Note Anesthesia document: Postop Eval 1 completed: Yes
--- NOTE | 2025-05-10 12:23 | PCM.POSTANE2 ---
Anesthesia Postop Eval I Sum Postop Eval Completion status Anesthesia document: Postop Eval 1 completed: Yes Anesthesia Postop Eval I Summary Anesthesia Postop Eval I Summary: Anesthesia Postop Eval I: Assessment Summary Airway patent Yes 05/10/25 07:38 [email or web address] Spontaneous unlabored Yes 05/10/25 07:38 [email or web address] respirations Mental status Asleep 05/10/25 07:38 [email or web address] nausea No 05/10/25 07:38 [email or web address] Vomiting No 05/10/25 07:38 [email or web address] Anesthesia Postop Eval I: Fluid Summary Crystalloid volume administer 400 05/10/25 07:38 [email or web address] (ml) Colloids volume administered ( ml) Blood Product volume administered (ml) Total IV fluid infused 400 05/10/25 07:38 [email or web address] Anesthesia Postop Eval I: Summary Notes Anesthesia Complication No 05/10/25 07:38 [email or web address] Anesthesia Complication Comment: Post-operative progress note Anesthesia: Postop Eval II Evaluation Mental status: Awake Pain Level: 0 nausea: No Vomiting: No Complications Anesthesia Complication: No
== END 2025-05-10 08:15 | disposition home or self-care (01) ==
LOC: EN 05:56 → AC 05:59
PROVIDERS: PCP Internal Medicine; Referring Provider Internal Medicine; Visit Provider Internal Medicine Gastroenterology
DX: K22.70 Barrett's esophagus without dysplasia (principal); I48.0 Paroxysmal atrial fibrillation; N18.9 Chronic kidney disease, unspecified; E78.00 Pure hypercholesterolemia, unspecified; K31.7 Polyp of stomach and duodenum; R13.10 Dysphagia, unspecified; G47.33 Obstructive sleep apnea (adult) (pediatric); Z99.89 Dependence on other enabling machines and devices; Z79.01 Long term (current) use of anticoagulants; E03.9 Hypothyroidism, unspecified; Z79.890 Hormone replacement therapy; Z79.899 Other long term (current) drug therapy; Z98.49 Cataract extraction status, unspecified eye
CPT/HCPCS: 43239; 88305; J2405